=== PATIENT | female | born 1950 | race Caucasian/White ===

== ENCOUNTER 2020-11-30 13:27 | Outpatient (RCR) | payer MEDICARE, SELFPAY ==
[2016-10-14 19:12] VITALS: BMI 41.5
[2020-11-30] MEDS: COVID-19 VACC, MRNA(PFIZER)/PF 30 MCG/0.3 ML SYRINGE IM (15:04)
[2020-12-21] MEDS: COVID-19 VACC, MRNA(PFIZER)/PF 30 MCG/0.3 ML SYRINGE IM (14:41)
== END 2021-03-06 23:59 ==
LOC: IMMUN 13:27
PROVIDERS: PCP Family Medicine; Visit Provider Family Medicine
DX: Z23 Encounter for immunization (principal)
CPT/HCPCS: 0001A; 0002A; 91300

== ENCOUNTER → 2022-04-10 | Outpatient (CLI) | payer MEDICARE, SELFPAY ==
[2022-04-10 15:41] LABS: Erythrocyte Sedimentation Rate 52 mm/hr (0-30)
[2022-04-10 15:43] LABS: Absolute Lymphocyte Count 1.18 X10^3/uL (0.83-4.51); Absolute Neutrophil Count 6.6 X10^3/uL (2.0-7.7); Basophil# 0.01 X10^3/uL; Basophil% 0.1 % (0-1); Eosinophil# 0.15 X10^3/uL; Eosinophils% 1.7 % (0-5); Hematocrit 42.1 % (37-47); Hemoglobin 13.9 g/dL (12.0-15.0); Lymphocyte # 1.18 X10^3/ul (0.83-4.51); Lymphocyte % 13.6 % (19-41); Mean Corpuscular Hgb 33.6 pg (27.0-32.0); Mean Corpuscular Volume 101.7 fL (81-99); Mean Platelet Vol. 11.6 fl (6.2-12.0); NRBC Flagged by Analyzer 0 % (0-5); Neutrophil # 6.63 X10^3/uL (2.7-7.7); Neutrophil % 76.3 % (47-70); Platelet Count 192 K/mm3 (150-450); RBC Distribution Width CV 14.8 % (11.6-14.6); RBC Distribution Width SD 54.1 fl (35.1-43.9); Red Blood Count 4.14 M/mm3 (4.2-5.4); White Blood Count 8.7 K/mm3 (4.4-11.0)
[2022-04-10 15:58] LABS: ALB/GLOB Ratio 0.8 RATIO (0.9-2.4); AST(SGOT) 26 U/L (15-37); Alanine Aminotransfer ALT/SGPT 26 U/L (13-56); Albumin, Serum 3.4 g/dL (3.2-5.0); Alkaline Phosphatase 67 U/L (45-117); Anion Gap 6 (5-15); BUN 15 mg/dL (7-18); BUN/Creat Ratio 22.5 RATIO (10-20); Calcium,Total 9.6 mg/dL (8.5-10.1); Chloride 105 mmol/L (98-107); Creatinine, Serum 0.67 mg/dL (0.55-1.02); EST Glomerular Filtration Rate 93 mL/min (>60); Est Glom Filt Rate - Afr Amer 112 mL/min (>60); Ferritin 195 ng/mL (8-252); Glucose 117 mg/dL (74-106); LDH 208 U/L (84-246); Potassium 3.9 mmol/L (3.5-5.1); Protein, Total 7.4 g/dL (6.4-8.2); Sodium Level 140 mmol/L (136-145)
[2022-04-12 13:07] LABS: Anti-Centromere B Ab <0.2 AI (0.0-0.9); Anti-Chromatin <0.2 AI (0.0-0.9); Anti-Jo <0.2 AI (0.0-0.9); Anti-Scleroderma-70 AB <0.2 AI (0.0-0.9); RNP Ab 0.6 AI (0.0-0.9); SJOGREN'S Anti-SS-A test < 0.2 AI (0.0-0.9); SJOGREN'S Anti-SS-B test < 0.2 AI (0.0-0.9); Smith Ab <0.2 AI (0.0-0.9)
[2022-04-12 17:07] LABS: Endomysial Antibody IgA Negative (Negative)
[2022-04-12 20:21] LABS: Immunoglobulin A 414 mg/dL (87-352); t-Transglutaminase IgA <2 U/mL (0-3)
[2022-04-13 23:58] LABS: Anti-dsDNA Ab 2 IU/mL (0-9)
[2022-04-14 16:08] LABS: Albumin 3.6 g/dL (2.9-4.4); Alpha-1-Globulins 0.4 g/dL (0.0-0.4); Cytoplasmic Ab (C-ANCA) <1:20 titer (Neg:<1:20); Immunoglobulin A 406 mg/dL (87-352); Immunoglobulin E 3 IU/mL (6-495); Immunoglobulin G 1018 mg/dL (586-1602); Immunoglobulin M 53 mg/dL (26-217); PROEL- TOTAL PROTEIN 7.3 g/dL (6.0-8.5)
[2022-04-14 21:44] LABS: Perinuclear Ab (P-ANCA) <1:20 titer (Neg:<1:20)
== END | disposition home or self-care (01) ==
PROVIDERS: PCP Family Medicine; Visit Provider Internal Medicine Gastroenterology
DX: K57.92 Diverticulitis of intestine, part unspecified, without perforation or abscess without bleeding (principal); K21.9 Gastro-esophageal reflux disease without esophagitis; M54.16 Radiculopathy, lumbar region; Z98.890 Other specified postprocedural states
CPT/HCPCS: 36415; 80053; 82728; 82784; 82785; 83516; 83615; 84165; 85025; 85652; 86140; 86225; 86235; 86255; 86256; 86334

== ENCOUNTER → 2022-04-19 | Outpatient (CLI) | payer MEDICARE, SELFPAY ==
[2022-04-25 20:17] LABS: Calprotectin, Stool 161 ug/g (0-120)
== END | disposition home or self-care (01) ==
LOC: LABSPEC 07:50
PROVIDERS: PCP Family Medicine; Referring Provider Internal Medicine Gastroenterology; Visit Provider Internal Medicine Gastroenterology
DX: K57.92 Diverticulitis of intestine, part unspecified, without perforation or abscess without bleeding (principal); K21.9 Gastro-esophageal reflux disease without esophagitis; K58.9 Irritable bowel syndrome, unspecified
CPT/HCPCS: 36415; 83630; 83993

== ENCOUNTER 2022-05-01 08:19 | Day surgery (SDC) | payer MEDICARE, SELFPAY ==
[2022-05-01] VITALS (7 sets, daily range): BP systolic 103–152; BP diastolic 57–110; PULSE 78–91; RESP 16–24; TEMP 36.4–36.6; O2SAT 98–100; BMI 37.4
[2022-05-01] MEDS: Lactated Ringers 1,000 ML 15 ML IV (08:54)
--- NOTE | 2022-05-01 09:30 | IMM_PTH ---
PATIENT: ISIDRA WARREN LOC: EN U#:[id number] AGE/SX: 71/F ROOM: RE05/01/[address]: Dr. Zeyad De DO : 1950 BED: DIS: 05/01/2022 SPEC #: [id number] RECD: 05/01/22 12:50 STATUS: JARRETT REQ #: [id number] KESHAV: 05/01/22 09:[address]: Zeyad De DEPT: IMMUNOHISTOCHEMISTRY RECD BY: Nuria Banks ENTERED: 05/01/22 12:52 SP TYPE: IMMUNO OTHR DR: Dr. Bobby Hopkins DO Tissues: A - Stomach, NOS Procedures: H Pylori (initial) PHYSICIAN & INSTITUTION [place] [id number] SPECIMEN INFORMATION: Tissue Source: A - Gastric antrum biopsy Clinical Info: GERD, diverticulitis Specimen Number: [id number] CPT code: 55198 METHODOLOGY: Deparaffinized sections of prefer/formalin-fixed tissue or PAP/DQ stained slides are incubated with monoclonal/polyclonal antibodies/oligonucleotide probes. Localization is made via biotin free immunoperoxidase method. Appropriate controls are performed and reacted as expected. Results on target cell population are indicated in the following table: RESULTS: ANTIBODY / CLONE RESULT Block A H Pylori (polyclonal) negative These tests were developed and their performance characteristics determined by [facility]. They may not have been cleared or approved by the U.S. Food and Drug Administration. The FDA has determined that such clearance or approval is not necessary. The above immunohistochemical/dualISH markers are ordered and reviewed by the Pathologist. INTERPRETATION: A. Gastric antrum, biopsy: Negative for Helicobacter pylori organisms. AM:kusum 05/02/2022
--- NOTE | 2022-05-01 09:30 | COLBX_PTH ---
PATIENT: ISIDRA WARREN LOC: EN U#:[id number] AGE/SX: 71/F ROOM: RE05/01/[address]: Dr. Zeyad De DO : 1950 BED: DIS: 05/01/2022 SPEC #: [id number] RECD: 05/01/22 10:48 STATUS: JARRETT REEsthela #: [id number] KESHAV: 05/01/22 09:[address]: Zeyad De DEPT: SURGICAL PATHOLOGY RECD BY: Georgette Paul ENTERED: 05/01/22 11:48 SP TYPE: COLON BX OTHR DR: Dr. Bobby Hopkins DO Tissues: A - Gastric mucous membrane B - Duodenum, NOS C - Esophagus, NOS D - COLON BIOPSY Procedures: Special Stain Group II Surgery Specimen Level IV Alcian Blue/PAS (control) HEADER OPERATION: Colonoscopy with biopsies, EGD with biopsies ([facility] [place]) PRE-OP DIAGNOSIS: GERD, diverticulitis TISSUE SUBMITTED: A ? Gastric antrum biopsy, B ? Duodenum polyp, C ? Distal esophagus biopsy, D ? Random colon biopsy MICROSCOPIC DIAGNOSIS A. Gastric antrum, biopsy: Mild chronic gastritis. See comment. B. Duodenal polyp, biopsy: Polypoid fragments of benign duodenal mucosa. See comment. C. Distal esophagus, biopsy: Gastroesophageal junctional mucosa with mild chronic inflammation. No evidence of goblet cell metaplasia. See comment. D. Colon, random biopsy: Melanosis coli. AM:kusum 05/02/2022 COMMENT A. The results of immunohistochemistry for Helicobacter pylori will be reported separately ([id number]). B. Neither hyperplastic nor adenomatous change is identified. Clinical correlation is suggested. C. Alcian blue/PAS stain with matched control supports the above diagnosis. MICROSCOPIC DESCRIPTION Slides are reviewed. GROSS DESCRIPTION A - Received in fixative is one container labeled with the patient's name and designated gastric antrum biopsy. The specimen consists of two irregular fragments of light pelletier soft tissue that in aggregate measure 0.6 x 0.3 x 0.1 cm. The specimen is totally submitted in one cassette. B - Received in fixative is one container labeled with the patient's name and designated duodenum polyp. The specimen consists of two irregular fragments of light pelletier soft tissue that in aggregate measure 0.8 x 0.4 x 0.1 cm. The specimen is totally submitted in one cassette. C - Received in fixative is one container labeled with the patient's name and designated distal esophagus biopsy. The specimen consists of one irregular fragment of light pelletier soft tissue that measures 0.3 x 0.3 x 0.1 cm. The specimen is totally submitted in one cassette. D - Received in fixative is one container labeled with the patient's name and designated random colon biopsy. The specimen consists of multiple irregular fragments of light pelletier soft tissue that in aggregate measure 1.5 x 1 x 0.1 cm. The specimen is totally submitted in one cassette. / SJ:rg 05/01/2022 TC:3 CPT: 99540 x4, 40599
--- NOTE | 2022-05-01 09:53 | PCM.HP.BLA ---
History and Physical Date of Admission: 05/01/22 ISIDRA WARREN, is a 71 F who presents to the office today for Follow up visit. Samreen established with this clinic 07.06.21. She was previously seen by Dr. Sridhar Lo for rectal bleeding, there was also a polyp that she was unable to remove. Colonoscopy 06.19.[address] Sridhar Lo finding diverticulosis of sigmoid, descending and transverse colons; one 7mm polyp at appendiceal orifice. Colonoscopy 07.19.21 finding diverticulosis of sigmoid and descending colons; one 5mm hyperplastic polyp with benign lymphoid tissue removed from cecum. CT abd/pel 09.19.21 found There is borderline retroperitoneal lymphadenopathy with enlarged nodes no greater than 10mm in the short axis diameter. Scattered atherosclerotic calcification of abdominal aorta without demonstrated aneurysm. Small umbilical hernia containing fat with diffuse degenerative changes of lumbar spine. Lymphadenopathy is stable when compared with previous CT abd/pel. Biochemical workup .2021 CA 19-9, CEA CA125, LDH WNL CT abd/pel 03.08.22 without lymphadenopathy; fatty infiltration of liver; contracted thick-walled gallbladder without stones; minor diverticular changes of colon without acute diverticulitis. Plan last visit 10.11.21: Tubular adenoma ? repeat colonoscopy 2025. Retroperitoneal lymphadenopathy ? tumor markers WNL, no changes with repeat CT scan. Suspect they are reactive lymph nodes secondary to chronic inflammation. BRBPR secondary to hemorrhoids, no bleeding since start of normal BM. Reports she is doing well from a GI standpoint. Having difficulty with vertigo for which she is being seen for. ROS Const Constitutional: No anorexia, fatigue, fever(s), weight change or sleep problems Eyes Eyes: No change in vision ENT ENT: No abnormal hearing, difficulty swallowing, mouth lesions, tongue swelling or throat swelling Resp Respiratory: No cough or shortness of breath Cardio Cardiology: No chest pain at rest, chest pain with exertion, shortness of breath or dyspnea on exertion Gastro GI: No difficulty swallowing Genitourinary-Female: No difficulty urinating or burning urination Musc Musculoskeletal: No joint pain, joint swelling, muscle weakness or decreased muscle mass Skin Skin: No hair loss in leg, yellowing of the eye, itchy eyes, rash, skin ulcer or skin swelling Neuro Neurology: No abnormal hearing, abnormal movements, confusion, unsteady gait/balance or memory loss Psych Psychiatric: No anxiety, No confusion and No memory loss Endo Endocrine: No fatigue or weight change Aller/Imm Allergy/Immunologic: No itchy eyes, throat swelling or tongue swelling Ruslan/Lymp Hematologic/Lymphatic: No easy bleeding, easy bruising or enlarged lymph nodes Exam Const General: cooperative and comfortable Nutritional Appearance: average body habitus and well nourished [facility] Head: normal to inspection Ears: hearing grossly normal bilaterally Nose: external nose normal Face and sinus: normal facial exam Mouth: oral mucosae normal Throat: posterior oropharynx normal Eyes General: appearance normal, both eyes and all related structures Neck Neck: normal visual inspection Chest Chest palpation & inspection: normal inspection of the chest and normal palpation of entire chest wall Resp Effort & Inspection: normal respiratory effort Auscultation: Bilateral: Clear to Auscultation Cardio Palpation: normal PMI Rate: regular rate Rhythm: regular rhythm GI Inspection: normal to inspection Auscultation: normal bowel sounds Percussion: normal to percussion Palpation: no hepatosplenomegaly Skin General: no rashes or lesions noted Neuro General: patient alert Extrem General: normal to inspection Psych Affect: normal affect Quality Reporting Tobacco Screening ([facility] 138) Smoking Status: Current some day smoker Assessment and Plan Assessment and Plan (1) GERD (gastroesophageal reflux disease): ?Status:?Chronic ?Plan: Her gastroesophageal disease is not being controlled on Prevacid 30 mg once a day.? I will switch her to pantoprazole 40 mg twice a day.? Also and possibly abdominal pain is secondary to NSAID induced injury.? She does take Mobic on a daily basis and accompanied by methotrexate and Humira that is sure affecting her ability to heal from a GI infection standpoint. (2) Diverticulitis: ?Status:?Chronic ?Plan: She will need to have a colonoscopy to evaluate her colon in the setting of recurrent diverticulitis in someone who is not had a colonoscopy in approximately 10 years. ? ? ? Orders: Orders CRP Today K21.9 - Gastro-esophageal reflux disease without esophagitis, K57.92 - Diverticulitis of intestine, part unspecified, without perforation or abscess without bleeding ? Erythrocyte Sed Rate Today K21.9 - Gastro-esophageal reflux disease without esophagitis, K57.92 - Diverticulitis of intestine, part unspecified, without perforation or abscess without bleeding ? CBC W/Diff, Automated Today K21.9 - Gastro-esophageal reflux disease without esophagitis, K57.92 - Diverticulitis of intestine, part unspecified, without perforation or abscess without bleeding, M54.16 - Radiculopathy, lumbar region ? Comprehensive Metabolic Profil Today K21.9 - Gastro-esophageal reflux disease without esophagitis, K57.92 - Diverticulitis of intestine, part unspecified, without perforation or abscess without bleeding ? LDH Today K21.9 - Gastro-esophageal reflux disease without esophagitis, K57.92 - Diverticulitis of intestine, part unspecified, without perforation or abscess without bleeding ? Ferritin Today K21.9 - Gastro-esophageal reflux disease without esophagitis, K57.92 - Diverticulitis of intestine, part unspecified, without perforation or abscess without bleeding, Z98.890 - Other specified postprocedural states ? APRIL Comprehensive Panel Today K21.9 - Gastro-esophageal reflux disease without esophagitis, K57.92 - Diverticulitis of intestine, part unspecified, without perforation or abscess without bleeding ? Calprotectin, Stool Today K21.9 - Gastro-esophageal reflux disease without esophagitis, K57.92 - Diverticulitis of intestine, part unspecified, without perforation or abscess without bleeding ? Stool Lactoferrin/WBC Today K21.9 - Gastro-esophageal reflux disease without esophagitis, K57.92 - Diverticulitis of intestine, part unspecified, without perforation or abscess without bleeding, K58.9 - Irritable bowel syndrome without diarrhea ? ANCA Today K21.9 - Gastro-esophageal reflux disease without esophagitis, K57.92 - Diverticulitis of intestine, part unspecified, without perforation or abscess without bleeding ? Celiac Disease Profile Today K21.9 - Gastro-esophageal reflux disease without esophagitis, K57.92 - Diverticulitis of intestine, part unspecified, without perforation or abscess without bleeding ? Immunoglobulins G/A/M/E Today K21.9 - Gastro-esophageal reflux disease without esophagitis, K57.92 - Diverticulitis of intestine, part unspecified, without perforation or abscess without bleeding ? ROBIN + Protein Elect, Serum Today K21.9 - Gastro-esophageal reflux disease without esophagitis, K57.92 - Diverticulitis of intestine, part unspecified, without perforation or abscess without bleeding ? Medications: New amoxicillin-pot clavulanate 875-125 mg 1 TAB PO Q12H 14 tabs 0RF 7 days ? ? fluconazole 200 mg PO DAILY 10 tabs 0RF ? ? sucralfate 10 mL PO TID 1,000 mL 1RF ? ? pantoprazole 40 mg PO BID 120 tabs 0RF 2 months ? ? Discontinued lansoprazole ?? Discontinued Reason:? Duplicate Order 30 mg? PO DAILY ? ? I have re-examined the patient. There are no clinical changes since date of exam.
--- NOTE | 2022-05-01 10:41 | OP.CCLET_ITS ---
07/04/2022 Bobby Hopkins Re : Upper GI endoscopy procedure for Lucrecia Hamiltonr Sandeep This procedure was performed on Sunday, May 01, 2022. My impressions and recommendations are as follows: Impressions : - Z-line irregular, 38 cm from the incisors. Biopsied. - Small hiatal hernia. - Erythematous mucosa in the gastric body. Biopsied. - A single duodenal polyp. Biopsied. Recommendations : - Discharge patient to home. - Resume previous diet. - Continue present medications. - Await pathology results. - Repeat upper endoscopy in 1 year for surveillance. My findings are described in the full procedure note, which is enclosed. If I can be of further assistance, please feel free to contact me at . Sincerely, Zeyad De, 05/01/2022 10:40:18 AM This report has been signed electronically.
--- NOTE | 2022-05-01 10:41 | OP.EGD_ITS ---
Patient Name: Lucrecia Roberto Procedure Date: 05/01/2022 9:45 AM Date of : 1950 Age: 71 Procedure: Upper GI endoscopy Indications: Epigastric abdominal pain, Dyspepsia Providers: Zeyad De DO Medicines: Monitored Anesthesia Care Patient Profile: This is a 71 year old female. Refer to note in patient chart for documentation of history and physical. Patient has symptoms of chronic abdominal cramping, chronic abdominal distention and chronic epigastric abdominal pain. Complications: No immediate complications. Procedure: Pre-Anesthesia Assessment: - Prior to the procedure, a History and Physical was performed, and patient medications and allergies were reviewed. The patient is competent. The risks and benefits of the procedure and the sedation options and risks were discussed with the patient. All questions were answered and informed consent was obtained. Patient identification and proposed procedure were verified by the physician in the pre-procedure area. Mental Status Examination: alert and oriented. Airway Examination: normal oropharyngeal airway and neck mobility. Respiratory Examination: clear to auscultation. CV Examination: normal. Prophylactic Antibiotics: The patient does not require prophylactic antibiotics. Prior Anticoagulants: The patient has taken no previous anticoagulant or antiplatelet agents. After reviewing the risks and benefits, the patient was deemed in satisfactory condition to undergo the procedure. The anesthesia plan was to use moderate sedation / analgesia (conscious sedation). Immediately prior to administration of medications, the patient was re-assessed for adequacy to receive sedatives. The heart rate, respiratory rate, oxygen saturations, blood pressure, adequacy of pulmonary ventilation, and response to care were monitored throughout the procedure. The physical status of the patient was re-assessed after the procedure. After obtaining informed consent, the endoscope was passed under direct vision. Throughout the procedure, the patient's blood pressure, pulse, and oxygen saturations were monitored continuously. The pediatric colonoscope was introduced through the mouth, and advanced to the second part of duodenum. The upper GI endoscopy was accomplished without difficulty. The patient tolerated the procedure well. Scope In: 10:01:06 AM Scope Out: 10:09:14 AM Total Procedure Duration Time 0 hours 8 minutes 8 seconds Findings: The Z-line was irregular and was found 38 cm from the incisors. Biopsies were taken with a cold forceps for histology. Verification of patient identification for the specimen was done. Estimated blood loss was minimal. A small hiatal hernia was present. Patchy mildly erythematous mucosa without bleeding was found in the gastric body. Biopsies were taken with a cold forceps for histology. Verification of patient identification for the specimen was done. Estimated blood loss was minimal. A single 5 mm sessile polyp was found in the second portion of the duodenum. Biopsies were taken with a cold forceps for histology. Verification of patient identification for the specimen was done. Estimated blood loss was minimal. Impression: - Z-line irregular, 38 cm from the incisors. Biopsied. - Small hiatal hernia. - Erythematous mucosa in the gastric body. Biopsied. - A single duodenal polyp. Biopsied. Recommendation: - Discharge patient to home. - Resume previous diet. - Continue present medications. - Await pathology results. - Repeat upper endoscopy in 1 year for surveillance. Procedure Code(s): --- Professional --- 55196, Esophagogastroduodenoscopy, flexible, transoral; with biopsy, single or multiple CPT copyright 2017 [employer]. All rights reserved. The codes documented in this report are preliminary and upon port surveyor review may be revised to meet current compliance requirements. Zeyad De DO 05/01/2022 10:40:18 AM This report has been signed electronically. Number of Addenda: 1 Note Initiated On: 05/01/2022 9:45 AM Addendum Number: 1 Addendum Date: 07/04/2022 6:33:29 AM MAC was used as sedation for this procedure. Zeyad De DO 07/04/2022 6:33:36 AM This report has been signed electronically.
--- NOTE | 2022-05-01 10:45 | OP.COLON_ITS ---
Patient Name: Lucrecia Roberto Procedure Date: 05/01/2022 10:09 AM Date of : 1950 Age: 71 Procedure: Colonoscopy Indications: Chronic diarrhea, Clinically significant diarrhea of unexplained origin Providers: Zeyad De DO Medicines: Monitored Anesthesia Care Patient Profile: This is a 71 year old female. Refer to note in patient chart for documentation of history and physical. Patient has symptoms of chronic abdominal cramping, chronic abdominal distention and chronic epigastric abdominal pain. Last Colonoscopy: within the past 3 years. Complications: No immediate complications. Procedure: Pre-Anesthesia Assessment: - Prior to the procedure, a History and Physical was performed, and patient medications and allergies were reviewed. The patient is competent. The risks and benefits of the procedure and the sedation options and risks were discussed with the patient. All questions were answered and informed consent was obtained. Patient identification and proposed procedure were verified by the physician in the pre-procedure area. Mental Status Examination: alert and oriented. Airway Examination: normal oropharyngeal airway and neck mobility. Respiratory Examination: clear to auscultation. CV Examination: normal. Prophylactic Antibiotics: The patient does not require prophylactic antibiotics. Prior Anticoagulants: The patient has taken no previous anticoagulant or antiplatelet agents. After reviewing the risks and benefits, the patient was deemed in satisfactory condition to undergo the procedure. The anesthesia plan was to use moderate sedation / analgesia (conscious sedation). Immediately prior to administration of medications, the patient was re-assessed for adequacy to receive sedatives. The heart rate, respiratory rate, oxygen saturations, blood pressure, adequacy of pulmonary ventilation, and response to care were monitored throughout the procedure. The physical status of the patient was re-assessed after the procedure. After I obtained informed consent, the scope was passed under direct vision. Throughout the procedure, the patient's blood pressure, pulse, and oxygen saturations were monitored continuously. The pediatric colonoscope was introduced through the anus and advanced to the cecum, identified by appendiceal orifice and ileocecal valve. The colonoscopy was performed without difficulty. The patient tolerated the procedure well. The quality of the bowel preparation was fair. Scope In: 10:13:21 AM Scope Withdrawal Time 0 hours 8 minutes 14 seconds Scope Out: 10:33:44 AM Total Procedure Duration Time 0 hours 20 minutes 23 seconds Findings: Hemorrhoids were found on perianal exam. Multiple small and large-mouthed diverticula were found in the recto-sigmoid colon, sigmoid colon and descending colon. There was narrowing of the colon in association with the diverticular opening. There was evidence of diverticular spasm. Erythema was seen in association with the diverticular opening. There was no evidence of diverticular bleeding. A diffuse area of moderate melanosis was found in the entire colon. Biopsies were taken with a cold forceps for histology. Verification of patient identification for the specimen was done. Estimated blood loss was minimal. Stool was found in the rectum, in the recto-sigmoid colon, in the sigmoid colon, in the ascending colon and in the cecum. Non-bleeding external and internal hemorrhoids were found during retroflexion and during perianal exam. The hemorrhoids were Grade III (internal hemorrhoids that prolapse but require manual reduction). Impression: - Preparation of the colon was fair. - Hemorrhoids found on perianal exam. - Moderate diverticulosis in the recto-sigmoid colon, in the sigmoid colon and in the descending colon. There was narrowing of the colon in association with the diverticular opening. There was evidence of diverticular spasm. Erythema was seen in association with the diverticular opening. There was no evidence of diverticular bleeding. - Melanosis in the colon. Biopsied. - Stool in the rectum, in the recto-sigmoid colon, in the sigmoid colon, in the ascending colon and in the cecum. Recommendation: - Discharge patient to home. - Resume previous diet. - Continue present medications. - Await pathology results. - Repeat colonoscopy in 5 years for surveillance. Procedure Code(s): --- Professional --- 69611, Colonoscopy, flexible; with biopsy, single or multiple CPT copyright 2017 [employer]. All rights reserved. The codes documented in this report are preliminary and upon tool keeper review may be revised to meet current compliance requirements. Zeyad De DO 05/01/2022 10:44:56 AM This report has been signed electronically. Number of Addenda: 1 Note Initiated On: 05/01/2022 10:09 AM Addendum Number: 1 Addendum Date: 07/04/2022 6:33:44 AM MAC was used as sedation for this procedure. Zeyad De DO 07/04/2022 6:33:48 AM This report has been signed electronically.
--- NOTE | 2022-05-01 10:45 | OP.CCLET_ITS ---
07/04/2022 Bobby Hopkins Re : Colonoscopy procedure for Lucrecia Hamiltonr Sandeep This procedure was performed on Sunday, May 01, 2022. My impressions and recommendations are as follows: Impressions : - Preparation of the colon was fair. - Hemorrhoids found on perianal exam. - Moderate diverticulosis in the recto-sigmoid colon, in the sigmoid colon and in the descending colon. There was narrowing of the colon in association with the diverticular opening. There was evidence of diverticular spasm. Erythema was seen in association with the diverticular opening. There was no evidence of diverticular bleeding. - Melanosis in the colon. Biopsied. - Stool in the rectum, in the recto-sigmoid colon, in the sigmoid colon, in the ascending colon and in the cecum. Recommendations : - Discharge patient to home. - Resume previous diet. - Continue present medications. - Await pathology results. - Repeat colonoscopy in 5 years for surveillance. My findings are described in the full procedure note, which is enclosed. If I can be of further assistance, please feel free to contact me at . Sincerely, Zeyad De DO 05/01/2022 10:44:56 AM This report has been signed electronically.
[2022-05-01] MEDS: Albuterol 2.5 MG/3 ML VIAL.NEB. INHALATION (10:55)
== END 2022-05-01 11:51 | disposition home or self-care (01) ==
LOC: EN 08:20 → AC 08:24
PROVIDERS: PCP Family Medicine; Referring Provider Family Medicine; Visit Provider Internal Medicine Gastroenterology
PROC: 0DJD8ZZ Inspection of Lower Intestinal Tract, Via Natural or Artificial Opening Endoscopic (ICD-10-PCS; CPT 45378; principal; 2022-05-01 09:25)
DX: K57.30 Diverticulosis of large intestine without perforation or abscess without bleeding (principal); K31.7 Polyp of stomach and duodenum; K21.9 Gastro-esophageal reflux disease without esophagitis; K63.89 Other specified diseases of intestine; K44.9 Diaphragmatic hernia without obstruction or gangrene; K64.2 Third degree hemorrhoids; K64.8 Other hemorrhoids; F17.200 Nicotine dependence, unspecified, uncomplicated; R19.7 Diarrhea, unspecified
CPT/HCPCS: 45380; 43239; 87493; 87506; 88305; 88313; 88342; 94640; J7120; J2405

== ENCOUNTER → 2022-09-11 | Outpatient (CLI) | payer MEDICARE, SELFPAY ==
[2022-09-11 17:17] LABS: Erythrocyte Sedimentation Rate 25 mm/hr (0-30)
[2022-09-11 17:20] LABS: Absolute Lymphocyte Count 1.22 X10^3/uL (0.83-4.51); Absolute Neutrophil Count 4.6 X10^3/uL (2.0-7.7); Basophil# 0.02 X10^3/uL; Basophil% 0.3 % (0-1); Eosinophil# 0.08 X10^3/uL; Eosinophils% 1.3 % (0-5); Hematocrit 40.6 % (37-47); Lymphocyte # 1.22 X10^3/ul (0.83-4.51); Lymphocyte % 19.9 % (19-41); Mean Corpuscular Hgb 33.8 pg (27.0-32.0); Mean Corpuscular Volume 105.5 fL (81-99); Mean Platelet Vol. 10.5 fl (6.2-12.0); Monocyte# 0.25 X10^3/uL; Monocyte% 4.1 % (0-10); NRBC Flagged by Analyzer 0 % (0-5); Neutrophil # 4.55 X10^3/uL (2.7-7.7); Neutrophil % 74.1 % (47-70); Platelet Count 250 K/mm3 (150-450); RBC Distribution Width CV 15.6 % (11.6-14.6); RBC Distribution Width SD 60.3 fl (35.1-43.9); Red Blood Count 3.85 M/mm3 (4.2-5.4); White Blood Count 6.1 K/mm3 (4.4-11.0)
[2022-09-11 18:00] LABS: ALB/GLOB Ratio 0.9 RATIO (0.9-2.4); AST(SGOT) 27 U/L (15-37); Alanine Aminotransfer ALT/SGPT 34 U/L (13-56); Albumin, Serum 3.3 g/dL (3.2-5.0); Alkaline Phosphatase 68 U/L (45-117); Anion Gap 3 (5-15); BUN 21 mg/dL (7-18); BUN/Creat Ratio 24.4 RATIO (10-20); CRP < 2.90 mg/L (0.0-3.0); Calcium,Total 9.1 mg/dL (8.5-10.1); Chloride 107 mmol/L (98-107); Creatinine, Serum 0.86 mg/dL (0.55-1.02); EST Glomerular Filtration Rate 69 mL/min (>60); Est Glom Filt Rate - Afr Amer 84 mL/min (>60); Globulin 3.8 g/dL (2.2-4.2); Glucose 195 mg/dL (74-106); Potassium 4.1 mmol/L (3.5-5.1); Protein, Total 7.1 g/dL (6.4-8.2); Sodium Level 139 mmol/L (136-145)
== END | disposition home or self-care (01) ==
LOC: LAB 16:48
PROVIDERS: PCP Family Medicine; Visit Provider Registered Nurse
DX: L40.50 Arthropathic psoriasis, unspecified (principal)
CPT/HCPCS: 36415; 80053; 85025; 85652; 86140

== ENCOUNTER → 2023-05-27 | Outpatient (CLI) | payer MEDICARE, SELFPAY ==
[2023-05-27 15:36] LABS: BNP,B-Type NATRIURETIC PEPTIDE 50.5 pg/mL (0-100)
[2023-05-27 15:50] LABS: ALB/GLOB Ratio 0.8 RATIO (0.9-2.4); AST(SGOT) 32 U/L (15-37); Alanine Aminotransfer ALT/SGPT 35 U/L (13-56); Albumin, Serum 3.3 g/dL (3.2-5.0); Alkaline Phosphatase 77 U/L (45-117); Anion Gap 9 (5-15); BUN 20 mg/dL (7-18); BUN/Creat Ratio 24.5 RATIO (10-20); Calcium,Total 9.9 mg/dL (8.5-10.1); Chloride 101 mmol/L (98-107); Creatinine, Serum 0.82 mg/dL (0.55-1.02); EST Glomerular Filtration Rate 73 mL/min (>60); Est Glom Filt Rate - Afr Amer 89 mL/min (>60); Globulin 3.9 g/dL (2.2-4.2); Glucose 129 mg/dL (74-106); Protein, Total 7.2 g/dL (6.4-8.2); Sodium Level 137 mmol/L (136-145)
== END | disposition home or self-care (01) ==
LOC: BIMLAB 13:53
PROVIDERS: PCP Family Medicine; Referring Provider Family Medicine; Visit Provider Family Medicine
DX: R06.89 Other abnormalities of breathing (principal); R06.00 Dyspnea, unspecified; I10 Essential (primary) hypertension
CPT/HCPCS: 36415; 80053; 83880

== ENCOUNTER → 2023-05-29 | Outpatient (CLI) | payer MEDICARE, SELFPAY ==
--- NOTE | 2023-05-29 15:31 | RAD_ITS ---
EXAM: XR CHEST, 2 VIEWS CLINICAL INDICATION: PT STATED DYSPNEA, COUGH X 3 DAYS TECHNIQUE: Frontal and lateral views of the chest. COMPARISON: 08/09/2014 FINDINGS: LUNGS AND PLEURAL SPACES: There are interstitial opacities which may represent scar or edema. No pneumothorax. No effusion. HEART: Unremarkable. Cardiac silhouette not enlarged. MEDIASTINUM: Central airways and mediastinal contour are unremarkable. BONES/JOINTS: Unremarkable. SOFT TISSUES: Unremarkable. RAD/Chest PA and Lateral IMPRESSION: Interstitial opacities which may represent scar or edema. There is no focal consolidation. Electronically Signed: Pancho Justice MD at 20:31 EDT ,
== END | disposition home or self-care (01) ==
LOC: RAD 15:30
PROVIDERS: PCP Family Medicine; Referring Provider Family Medicine; Visit Provider Family Medicine
DX: J44.9 Chronic obstructive pulmonary disease, unspecified (principal); R06.00 Dyspnea, unspecified
CPT/HCPCS: 71046

== ENCOUNTER 2023-06-01 17:41 | Inpatient (IN) | payer MEDICARE, MEDICAID, SELFPAY ==
[2023-06-01] VITALS (10 sets, daily range): BP systolic 100–151; BP diastolic 74–92; PULSE 85–111; RESP 20–28; TEMP 37.4; O2SAT 66–95; BMI 39.3
--- NOTE | 2023-06-01 17:50 | EKG12_ITS ---
Test Reason : SOB Blood Pressure : / mmHG Vent. Rate : 103 BPM Atrial Rate : 103 BPM P-R Int : 152 ms QRS Dur : 082 ms QT Int : 342 ms P-R-T Axes : 045 077 038 degrees QTc Int : 448 ms Sinus tachycardia with frequent Premature ventricular complexes Possible Left atrial enlargement Borderline ECG Confirmed by DOMO UMAÑA, MELVI ([id number]), features editor BRIDGETT CRESPO ([id number]) on 06/04/2023 10:49:00 AM Referred By: PRETTY Confirmed By:MELVI OLIVEROS MD
--- NOTE | 2023-06-01 17:50 | NURSING ---
NO OLD EKGS
[2023-06-01 18:02] LABS: Absolute Neutrophil Count 5.8 X10^3/uL (2.0-7.7); Basophil# 0.04 X10^3/uL; Basophil% 0.6 % (0-1); Eosinophil# 0.17 X10^3/uL; Eosinophils% 2.4 % (0-5); Hematocrit 43.9 % (37-47); Hemoglobin 14.6 g/dL (12.0-15.0); Lymphocyte % 8.3 % (19-41); Mean Corp Hgb Conc 33.3 g/dL (32-36); Mean Corpuscular Hgb 33.6 pg (27.0-32.0); Mean Corpuscular Volume 101.2 fL (81-99); Mean Platelet Vol. 10.1 fl (6.2-12.0); Monocyte% 8.3 % (0-10); NRBC Flagged by Analyzer 0 % (0-5); Neutrophil # 5.77 X10^3/uL (2.7-7.7); Neutrophil % 79.8 % (47-70); POSITIVE DIFFERENTIAL YES; Platelet Count 253 K/mm3 (150-450); RBC Distribution Width SD 54.2 fl (35.1-43.9); Red Blood Count 4.34 M/mm3 (4.2-5.4); White Blood Count 7.2 K/mm3 (4.4-11.0)
--- NOTE | 2023-06-01 18:06 | EDS_ITS ---
HPI History of Present Illness Chief Complaint: Shortness of Breath Informant: patient, family and EMS Narrative Narrative: 72-year-old female presenting to the emergency department with chief complaint of dyspnea. Patient states that 1 week ago on Friday she developed some cough and dyspnea. She notes the cough is not really productive. She states that is progressively gotten worse. She has a history of psoriatic arthritis and does take Humira. She has not taken it this week. She does not wear home oxygen. EMS notes that she was hypoxic at 84% on room air. She denies any chest pain or leg swelling. No recent surgeries. She denies any known lung conditions but believes at some point somebody told her she may have COPD. She states that her temperatures been around 100 which for her is a fever as she generally feels very poorly with that no vomiting or diarrhea. No rashes. [facility] Medical History Abrasion Ambulates with cane Arthritis Back pain Back problem C. difficile colitis Elevated glucose Gastric reflux GERD (gastroesophageal reflux disease) Hearing difficulty High blood pressure High cholesterol History of diverticulitis History of hiatal hernia History of steroid therapy History of ulceration HTN (hypertension) IBS (irritable bowel syndrome) Low back pain Neuropathy Obesity Osteoarthritis Osteopenia Psoriatic arthritis Smoker Uses wheelchair Walker as ambulation aid Wears glasses Home Medications omega-3 fatty acids-fish oil 340 mg-1,000 mg capsule (Fish Oil) 1,000 mg PO DAILY 11/10/15 [History Last Taken 11/17/15 09:55] tizanidine 4 mg tablet 4 mg PO QHS 11/10/15 [History Last Taken 11/16/15 21:30] calcium carbonate 600 mg calcium (1,500 mg) tablet 2,000 mg PO DAILY 11/17/15 [History Last Taken 11/17/15 12:30] cholecalciferol (vitamin D3) 25 mcg (1,000 unit) tablet (Vitamin D3) 1,000 unit PO BID 11/17/15 [History Last Taken 11/16/15 21:25] hydrochlorothiazide 25 mg tablet 25 mg PO DAILY #30 TABLETS 11/20/15 [Rx Last Taken Unknown] meloxicam 7.5 mg tablet 15 mg PO DAILY 10/14/16 [History Last Taken Unknown] folic acid 1 mg tablet 1 mg PO DAILY 04/05/22 [History Last Taken Unknown] losartan 50 mg tablet 50 mg PO DAILY 04/05/22 [History Last Taken 05/01/22] melatonin 10 mg capsule 10 mg PO HS PRN Sleep 04/05/22 [History Last Taken Unknown] prednisone 5 mg tablet 1 tab PO DAILY 04/30/22 [History Last Taken Unknown] buprenorphine 15 mcg/hour weekly transdermal patch 1 patch transdermal Q7D 05/27/23 [History Last Taken Unknown] fluconazole 150 mg tablet 150 mg PO Q3D PRN 05/27/23 [History Last Taken Unknown] hydrocodone 10 mg-acetaminophen 325 mg tablet 0.25 tab PO DAILY PRN pain 05/27/23 [History Last Taken Unknown] hydrocodone 10 mg-acetaminophen 325 mg tablet 0.5 tab PO BID Pain 05/27/23 [History Last Taken Unknown] lansoprazole 30 mg capsule,delayed release 30 mg PO DAILY 05/27/23 [History Last Taken Unknown] methotrexate sodium 2.5 mg tablet 20 mg PO QWEEK 05/27/23 [History Last Taken Unknown] pantoprazole 40 mg tablet,delayed release 40 mg PO DAILY 05/27/23 [History Last Taken Unknown] tenapanor 50 mg tablet (Ibsrela) 50 mg PO DAILY 05/27/23 [History Last Taken Unknown] Allergy/AdvReac Type Severity Reaction Status Date / Time duloxetine [From Cymbalta] Allergy Intermediate Swelling Verified 06/01/23 17:42 erythromycin base Allergy Nausea/Vom/ Verified 06/01/23 17:42 Diarrhea pregabalin [From Lyrica] Allergy Swelling Verified 06/01/23 17:42 Family History Mother Diabetes Arthritis Heart disease CVA (cerebral vascular accident) Hypertension History of blood transfusion Father Pancreatic cancer Alcoholism Peptic ulcer disease Son Seizures Suicide attempt Surgical History H/O laminectomy History of appendectomy History of appendectomy History of breast biopsy History of colonoscopy (05/01/02) History of foot surgery History of spinal surgery Social History Smoking Status: Current some day smoker tobacco type: cigarettes alcohol intake: never substance use type: does not use what type of physical activity do you participate in: none seatbelt use: always do you feel safe at home: Yes ROS ROS ED Constitutional Constitutional ED: Reports chills and fever(s); Denies weight loss Eyes Eyes: Denies change in vision or diplopia ENT ENT ED: Reports rhinorrhea; Denies ear pain or sore throat Cardiovascular Cardiovascular: Denies chest pain, orthopnea, palpitations or racing heartbeat Respiratory/Chest Respiratory/Chest: Reports cough, dyspnea and dyspnea on exertion; Denies orthopnea Gastrointestinal Gastrointestinal: Denies abdominal pain, diarrhea, nausea or vomiting Genitourinary Genitourinary ED: Denies dysuria, hematuria or urinary frequency Musculoskeletal Musculoskeletal: Reports myalgias; Denies arthralgias, back pain or neck pain Integumentary Denies abscess or rash Neurologic Neurologic: Denies headache(s), paresthesias or weakness Psychiatric Psychiatric: Denies anxiety, depression, suicidal ideation or suicidal thoughts Endocrine Endocrinology: Denies polydipsia, polyphagia or polyuria Allergic/Immunologic Allergic/Immunologic ED: Denies mouth swelling, tongue swelling or urticaria EXAM Physical Exam Const Vital Signs: 06/01/23 17:42 06/01/23 17:47 06/01/23 17:48 Temperature 99.3 F H Temperature Source Temporal Pulse Rate 111 H Respiratory Rate 23 H Respiratory Effort Short of Breath Labored Blood Pressure 151/92 H Blood Pressure Mean 111 Pulse Ox 90 94 Oxygen Delivery Method Nasal Cannula Nasal Cannula Nasal Cannula Oxygen Flow Rate (L/min) 2 3 3 06/01/23 17:47 06/01/23 18:12 06/01/23 18:12 Temperature 99.3 F H Temperature Source Temporal Pulse Rate 105 H 104 H Respiratory Rate 21 H 23 H Respiratory Effort Blood Pressure 151/92 H Blood Pressure Mean 111 Pulse Ox 94 95 Oxygen Delivery Method Nasal Cannula Nasal Cannula Oxygen Flow Rate (L/min) 3 3 06/01/23 19:02 06/01/23 20:05 06/01/23 20:04 Temperature Temperature Source Pulse Rate 98 107 H Respiratory Rate 20 H 28 H Respiratory Effort Blood Pressure 148/74 H 100/76 Blood Pressure Mean 98 84 Pulse Ox 94 91 66 Oxygen Delivery Method Nasal Cannula Nasal Cannula Room Air Oxygen Flow Rate (L/min) 2 2 06/01/23 21:36 06/01/23 22:35 Temperature Temperature Source Pulse Rate 88 85 Respiratory Rate 26 H 22 H Respiratory Effort Blood Pressure 129/76 H 142/82 H Blood Pressure Mean 93 102 Pulse Ox 92 93 Oxygen Delivery Method Nasal Cannula Nasal Cannula Oxygen Flow Rate (L/min) 2 2 Positive well nourished, well developed and obese General Appearance ED: well developed Nutritional Appearance: obese HEENT Reports normocephalic, head/scalp atraumatic and moist mucous membranes Eyes PERRL and EOMs intact bilaterally Neck no lymphadenopathy, supple and no JVD Resp clear to auscultation bilaterally Resp Narrative: Patient is tachypneic Cardio regular rate, regular rhythm and no murmurs Rate: tachycardic GI normal to inspection, nondistended, normoactive bowel sounds and non-tender Palpation: soft Back/Spine no CVA tenderness and normal ROM Extremity normal to inspection General Extremety ED: Negative for edema General Extremity: Negative for edema Neuro oriented x3 and CN's II-XII intact bilaterally Sensorium / Orientation: alert Motor Exam: strength 5/5 throughout Psych mental status grossly normal Mood & Affect: Negative for depressed or tearful Skin no rashes or lesions noted and no wounds MDM MDM MDM Narrative Medical decision making narrative: White count is 7.2. Lactic acid is normal 1.8. Troponin elevated 281. Her EKG is tachycardia but I do not see any acute injury pattern. Most likely elevated due to the degree of hypoxia. The patient attempted to ambulate from the room to the bathroom on room air and ended up dropping into the 60s. Just getting from the bed to the bedside commode she is in the low 80s while on 2 L nasal cannula. I interpretation of the chest x-ray is interstitial changes. CTA of the chest was obtained. This is negative for infiltrate effusion or embolism. The patient's COVID and influenza rapid test were negative. She received a DuoNeb with no significant change in symptomology. Lab Data Attestation: I reviewed the patient's lab results. Labs: Laboratory Results - last 24 hr 06/01/23 06/01/23 17:50 17:55 WBC 7.2 RBC 4.34 Hgb 14.6 Hct 43.9 MCV 101.2 H MCH 33.6 H MCHC 33.3 RDW Std Deviation 54.2 H RDW Coeff of Sonya 15.0 H Plt Count 253 MPV 10.1 Immature Gran % (Auto) 0.600 Neut % (Auto) 79.8 H Lymph % (Auto) 8.3 L [place] % (Auto) 8.3 Eos % (Auto) 2.4 Baso % (Auto) 0.6 Absolute Neuts (auto) 5.8 Absolute Lymphs (auto) 0.60 L Nucleated RBC % 0 Differential Comment SCANNED PT 14.2 INR 1.1 APTT 28.1 Sodium 139 Potassium 3.4 L Chloride 103 Carbon Dioxide 26.0 Anion Gap 10 BUN 17 Creatinine 0.88 Estim Creat Clear Calc 50.63 Est GFR (MDRD) Af Amer 81 Est GFR (MDRD) Non-Af 67 BUN/Creatinine Ratio 19.3 Glucose 177 H Lactic Acid 1.8 Calcium 9.1 Total Bilirubin 0.80 Direct Bilirubin 0.22 AST 32 ALT 20 Alkaline Phosphatase 77 Troponin I High Sens 282 H* Total Protein 7.6 Albumin 3.2 Globulin 4.4 H Radiography Diagnostic Testing: Clinical Impression(s) from Imaging Studies Chest X-Ray 06/01/23 18:28 IMPRESSION: Chronic interstitial lung disease. Electronically Signed: Joanne Wood MD at 18:52 EDT , Chest CTA 06/01/23 19:08 IMPRESSION: Chronic interstitial lung disease. No demonstrated pulmonary embolism or arterial dissection. Cholelithiasis. Electronically Signed: Joanne Wood MD at 21:49 EDT , EKG Initial EKG: Attestation: I personally reviewed and interpreted this EKG as follows: Comments: Sinus tachycardia with a ventricular rate of 103 bpm. PVCs noted. No concerning features of ACS seen. Prior EKG tracings: not available for review Differential Diagnosis Chest pain/SOB: pulmonary embolism, ACS, pneumothorax, pneumonia, aortic dissection, CHF and COPD Management Discussion w/another healthcare provider: Hospitalist Discharge Plan Triage Chief Complaint: Shortness of Breath ED Provider: Harry Woods Dx/Rx/DC Orders Clinical Impression: Acute dyspnea, Acute hypoxemic respiratory failure Prescriptions: No Action losartan 50 mg tablet 50 mg PO DAILY melatonin 10 mg capsule 10 mg PO HS PRN (Reason: Sleep) folic acid 1 mg tablet 1 mg PO DAILY methotrexate sodium 2.5 mg tablet 20 mg PO QWEEK Rx Instructions: SUNDAYS pantoprazole 40 mg tablet,delayed release (DR/EC) 40 mg PO DAILY Rx Instructions: in AM lansoprazole 30 mg capsule,delayed release(DR/EC) 30 mg PO DAILY Rx Instructions: in PM buprenorphine 15 mcg/hour patch weekly 1 patch transdermal Q7D Ibsrela 50 mg tablet 50 mg PO DAILY Rx Instructions: must administer immediately before first meal of day/breakfast fluconazole 150 mg tablet 150 mg PO Q3D PRN hydrocodone-acetaminophen 10-325 mg tablet 0.25 tab PO DAILY PRN (Reason: pain) tizanidine 4 MG tablet 4 mg PO QHS 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 Fish Oil 1 EACH capsule 1,000 mg PO DAILY Patient Comments: SUPPLEMENT calcium carbonate 600 MG tablet 2,000 mg PO DAILY Patient Comments: CALCIUM SUPPLEMENT cholecalciferol (vitamin D3) [Vitamin D3] 1,000 UNIT tablet 1,000 unit PO BID Patient Comments: VIT D SUPPLEMENT hydrochlorothiazide 25 MG tablet 25 mg PO DAILY Qty: 30 0RF meloxicam 7.5 MG tablet 15 mg PO DAILY prednisone 5 mg tablet 1 tab PO DAILY hydrocodone-acetaminophen 10-325 mg tablet 0.5 tab PO BID Primary Care Provider: Pedro Williamson Referrals: Pedro Williamson, [Primary Care Provider] - Disposition Disposition: Acute Care Hospital
[2023-06-01] MEDS: Ipratropium/Albuterol Sulfate 3 ML AMPUL.NEB INHALATION (18:11)
[2023-06-01 18:15] LABS: Differential Indicated SCAN CRITERIA MET
[2023-06-01 18:23] LABS: International Normalized Ratio 1.1; Prothrombin Time (Protime)PT. 14.2 SECONDS (11.7-14.9)
[2023-06-01 18:24] LABS: Partial Thromboplast Time 28.1 Seconds (24.1-36.2)
--- NOTE | 2023-06-01 18:28 | RAD_ITS ---
INDICATION: dyspnea EXAMINATION/TECHNIQUE: X-RAY - XR Chest 1 View COMPARISON: CR ChestAug 31 2022 FINDINGS: LINES/DEVICES: None. LUNGS: Increased subpleural interstitial markings consistent with chronic interstitial lung disease. MEDIASTINUM AND CARDIOVASCULAR STRUCTURES: Cardiac silhouette not enlarged. Central airways and mediastinal contour are unremarkable. BONES AND SOFT TISSUES: Unremarkable. RAD/Chest 1 View (Portable) IMPRESSION: Chronic interstitial lung disease. Electronically Signed: Joanne Wood MD at 18:52 EDT ,
[2023-06-01 18:37] LABS: AST(SGOT) 32 U/L (15-37); Alanine Aminotransfer ALT/SGPT 20 U/L (13-56); Albumin, Serum 3.2 g/dL (3.2-5.0); Alkaline Phosphatase 77 U/L (45-117); Bilirubin, Direct 0.22 mg/dL (0.00-0.30); Differential Comment SCANNED; Globulin 4.4 g/dL (2.2-4.2); Protein, Total 7.6 g/dL (6.4-8.2)
[2023-06-01 18:41] LABS: Lactic Acid 1.8 mmol/L (0.4-1.9)
--- NOTE | 2023-06-01 19:08 | CT_ITS ---
STUDY: CTA CHEST REASON FOR EXAM: Female, 72 years old. pulmonary embolism RADIATION DOSAGE (If Supplied By Facility): CTDIvol = ( 15.04 ) mGy, DLP = ( 531.44 ) mGycm TECHNIQUE: The examination was performed with the intravenous administration of IV 100mL Isovue-370. Post-processing of the angiographic images was performed, with multiplanar reformation and 3D reconstruction. Individualized dose optimization techniques were used for this CT. COMPARISON: FINDINGS: Normal enhancement of the main pulmonary artery and right and left pulmonary arteries. Normal enhancement of the bilateral peripheral pulmonary arteries. There is no demonstrated pulmonary embolism. Normal thoracic aorta and visualized great vessels. There is no demonstrated aortic dissection. Normal heart and pericardium. Mild enlargement of the mediastinal and hilar lymph nodes suggesting inflammatory process . Normal visualized trachea and bronchi. The lungs are well expanded. Subpleural reticular interstitial opacities consistent with chronic interstitial lung disease. Normal pleura. Normal chest wall structures. There are degenerative changes of thoracic spine. Cholelithiasis. CT/CTA Chest W/WO Contrast IMPRESSION: Chronic interstitial lung disease. No demonstrated pulmonary embolism or arterial dissection. Cholelithiasis. Electronically Signed: Joanne Wood MD at 21:49 EDT ,
--- NOTE | 2023-06-01 20:09 | ED.RN ---
ambulated pt back to room from restroom. spo2 66% on RA. 4L NC O2 placed. pt sp02 now 91% on 2L NC. pt resting in bed call light within reach.
[2023-06-01 20:53] LABS: Anion Gap 10 (5-15); BUN 17 mg/dL (7-18); BUN/Creat Ratio 19.3 RATIO (10-20); Calcium,Total 9.1 mg/dL (8.5-10.1); Chloride 103 mmol/L (98-107); Creatinine, Serum 0.88 mg/dL (0.55-1.02); EST Glomerular Filtration Rate 67 mL/min (>60); Est Glom Filt Rate - Afr Amer 81 mL/min (>60); Estimated Creatinine Clearance 50.63 ml/min; Glucose 177 mg/dL (74-106); Potassium 3.4 mmol/L (3.5-5.1); Sodium Level 139 mmol/L (136-145); Troponin-I HS 282 pg/mL (3.0-54.0)
--- NOTE | 2023-06-01 21:33 | ED.RN ---
pt assisted up bsc spo2 dropped to 73% on 2L NC. on 6L NC pt spo2 mid 80s. assisted back to bed with call light within reach. pt now 92% 2L NC. doctor updated.
--- NOTE | 2023-06-01 22:35 | HP.PCM.HOS_ITS ---
HPI - General General Date of Admission: 06/01/23 Date of Service: 06/01/23 Chief Complaint: Shortness of breath and cough HPI Narrative ISIDRA WARREN, is a 72 F with a significant history of rheumatoid arthritis and hypertension who presents emergency department with shortness and cough that started about a week before presentation. Her Shortness of breath is progressively getting worse. She went to her PCP. Chest x-ray was done. Chest x-ray was okay. Patient was started on Trelegy but she thinks that the Trelegy is not helping her. She reports a low-grade fever at home with highest temperature of about 100 F. She reports chills. She thinks that her cough is from a post nasal drip. She reports her sputum was white and thick. Her shortness of breath is mild at rest and increases excessively with mild exertion. Patient was brought to emergency department by paramedics. Of note reportedly when paramedics found patient; her oxygen saturation was 80%. She was placed on 2 L nasal cannula oxygen. At the emergency department his oxygen saturation with ambulation for distance of about 20 feet was 60%. She had elevated troponin but denies any chest pain. [facility] Medical History Abrasion Ambulates with cane Arthritis Back pain Back problem C. difficile colitis Elevated glucose Gastric reflux GERD (gastroesophageal reflux disease) Hearing difficulty High blood pressure High cholesterol History of diverticulitis History of hiatal hernia History of steroid therapy History of ulceration HTN (hypertension) IBS (irritable bowel syndrome) Low back pain Neuropathy Obesity Osteoarthritis Osteopenia Psoriatic arthritis Smoker Uses wheelchair Walker as ambulation aid Wears glasses Home Medications omega-3 fatty acids-fish oil 340 mg-1,000 mg capsule (Fish Oil) 1,000 mg PO DAILY 11/10/15 [History Last Taken 11/17/15 09:55] tizanidine 4 mg tablet 4 mg PO QHS 11/10/15 [History Last Taken 11/16/15 21:30] calcium carbonate 600 mg calcium (1,500 mg) tablet 2,000 mg PO DAILY 11/17/15 [History Last Taken 11/17/15 12:30] cholecalciferol (vitamin D3) 25 mcg (1,000 unit) tablet (Vitamin D3) 1,000 unit PO BID 11/17/15 [History Last Taken 11/16/15 21:25] hydrochlorothiazide 25 mg tablet 25 mg PO DAILY #30 TABLETS 11/20/15 [Rx Last Taken Unknown] meloxicam 7.5 mg tablet 15 mg PO DAILY 10/14/16 [History Last Taken Unknown] folic acid 1 mg tablet 1 mg PO DAILY 04/05/22 [History Last Taken Unknown] losartan 50 mg tablet 50 mg PO DAILY 04/05/22 [History Last Taken 05/01/22] melatonin 10 mg capsule 10 mg PO HS PRN Sleep 04/05/22 [History Last Taken Unknown] prednisone 5 mg tablet 1 tab PO DAILY 04/30/22 [History Last Taken Unknown] buprenorphine 15 mcg/hour weekly transdermal patch 1 patch transdermal Q7D 05/27/23 [History Last Taken Unknown] fluconazole 150 mg tablet 150 mg PO Q3D PRN 05/27/23 [History Last Taken Unknown] hydrocodone 10 mg-acetaminophen 325 mg tablet 0.25 tab PO DAILY PRN pain 05/27/23 [History Last Taken Unknown] hydrocodone 10 mg-acetaminophen 325 mg tablet 0.5 tab PO BID Pain 05/27/23 [History Last Taken Unknown] lansoprazole 30 mg capsule,delayed release 30 mg PO DAILY 05/27/23 [History Last Taken Unknown] methotrexate sodium 2.5 mg tablet 20 mg PO QWEEK 05/27/23 [History Last Taken Unknown] pantoprazole 40 mg tablet,delayed release 40 mg PO DAILY 05/27/23 [History Last Taken Unknown] tenapanor 50 mg tablet (Ibsrela) 50 mg PO DAILY 05/27/23 [History Last Taken Unknown] Allergy/AdvReac Type Severity Reaction Status Date / Time duloxetine [From Cymbalta] Allergy Intermediate Swelling Verified 06/01/23 17:42 erythromycin base Allergy Nausea/Vom/ Verified 06/01/23 17:42 Diarrhea pregabalin [From Lyrica] Allergy Swelling Verified 06/01/23 17:42 Family History Mother Diabetes Arthritis Heart disease CVA (cerebral vascular accident) Hypertension History of blood transfusion Father Pancreatic cancer Alcoholism Peptic ulcer disease Son Seizures Suicide attempt Surgical History H/O laminectomy History of appendectomy History of appendectomy History of breast biopsy History of colonoscopy (05/01/02) History of foot surgery History of spinal surgery Social History Smoking Status: Current some day smoker tobacco type: cigarettes alcohol intake: never substance use type: does not use what type of physical activity do you participate in: none seatbelt use: always do you feel safe at home: Yes ROS ROS Narrative Pertinent positives and pertinent negatives as noted in HPI. All other systems were reviewed and are negative Vital Signs Vital Signs Vital Signs: 06/01/23 17:42 06/01/23 17:47 06/01/23 17:48 Temperature 99.3 F H Temperature Source Temporal Pulse Rate 111 H Respiratory Rate 23 H Respiratory Effort Short of Breath Labored Blood Pressure 151/92 H Blood Pressure Mean 111 Pulse Ox 90 94 Oxygen Delivery Method Nasal Cannula Nasal Cannula Nasal Cannula Oxygen Flow Rate (L/min) 2 3 3 06/01/23 17:47 06/01/23 18:12 06/01/23 18:12 Temperature 99.3 F H Temperature Source Temporal Pulse Rate 105 H 104 H Respiratory Rate 21 H 23 H Respiratory Effort Blood Pressure 151/92 H Blood Pressure Mean 111 Pulse Ox 94 95 Oxygen Delivery Method Nasal Cannula Nasal Cannula Oxygen Flow Rate (L/min) 3 3 06/01/23 19:02 06/01/23 20:05 06/01/23 20:04 Temperature Temperature Source Pulse Rate 98 107 H Respiratory Rate 20 H 28 H Respiratory Effort Blood Pressure 148/74 H 100/76 Blood Pressure Mean 98 84 Pulse Ox 94 91 66 Oxygen Delivery Method Nasal Cannula Nasal Cannula Room Air Oxygen Flow Rate (L/min) 2 2 06/01/23 21:36 Temperature Temperature Source Pulse Rate 88 Respiratory Rate 26 H Respiratory Effort Blood Pressure 129/76 H Blood Pressure Mean 93 Pulse Ox 92 Oxygen Delivery Method Nasal Cannula Oxygen Flow Rate (L/min) 2 Weight Weight: 104 kg Body Mass Index (BMI) 39.3 Physical Exam Narrative Physical exam: General: Well-nourished, well-developed. Head: Normocephalic, atraumatic, no tenderness Eyes: Vision is grossly intact. EOMI ENT, no trauma, moist mucous membranes, no rhinorrhea Neck: Nontender, No thyromegaly. CVS: Coughing while being examined. Regular rate and rhythm. S1-S2 present. No murmur, gallop or rub. Respiratory : Posterior left lung with mild fine. Posterior right lungs diminished. Abdomen: Soft, nontender, nondistended, normal bowel sounds, no masses : Deferred Back: Nontender, no CVA tenderness Extremities: Nontender full range of motion, no trauma Skin: Normal color, no trauma, abrasions Neuro: Alert, oriented, cranial nerves II through XII grossly intact. Psychiatry: Normal mood. Normal affect. Not depressed. Not anxious. Results Lab / Micro Data 06/01/23 17:55 06/01/23 17:55 Labs: Laboratory Results - last 24 hr 06/01/23 17:50: Lactic Acid 1.8 06/01/23 17:55: WBC 7.2, RBC 4.34, Hgb 14.6, Hct 43.9, MCV 101.2 H, MCH 33.6 H, MCHC 33.3, RDW Std Deviation 54.2 H, RDW Coeff of Sonya 15.0 H, Plt Count 253, MPV 10.1, Immature Gran % (Auto) 0.600, Neut % (Auto) 79.8 H, Lymph % (Auto) 8.3 L, [place] % (Auto) 8.3, Eos % (Auto) 2.4, Baso % (Auto) 0.6, Absolute Neuts (auto) 5.8, Absolute Lymphs (auto) 0.60 L, Nucleated RBC % 0, Differential Comment SCANNED, PT 14.2, INR 1.1, APTT 28.1, Sodium 139, Potassium 3.4 L, Chloride 103, Carbon Dioxide 26.0, Anion Gap 10, BUN 17, Creatinine 0.88, Estim Creat Clear Calc 50.63, Est GFR (MDRD) Af Amer 81, Est GFR (MDRD) Non-Af 67, BUN/Creatinine Ratio 19.3, Glucose 177 H, Calcium 9.1, Total Bilirubin 0.80, Direct Bilirubin 0.22, AST 32, ALT 20, Alkaline Phosphatase 77, Troponin I High Sens 282 H*, Total Protein 7.6, Albumin 3.2, Globulin 4.4 H Micro: Microbiology 06/01/23 18:00 Nasal Secretion SARS-CoV-2 & FLU Antigen (Rapid) - Final Radiology Impression Chest X-Ray 06/01/23 18:28 IMPRESSION: Chronic interstitial lung disease. Electronically Signed: Joanne Wood MD at 18:52 EDT , Chest CTA 06/01/23 19:08 IMPRESSION: Chronic interstitial lung disease. No demonstrated pulmonary embolism or arterial dissection. Cholelithiasis. Electronically Signed: Joanne Wood MD at 21:49 EDT , Assessment & Plan Assessment/Plan (1) Acute dyspnea: PLAN: Plan Dyspnea with Hypoxia Impression chest x-ray radiology: Chronic interstitial lung disease.Chest x-ray was independently interpreted and I agree with radiologist interpretation. Rapid COVID antigen was negative. COVID PCR ordered in the ED, follow. We will check comprehensive respiratory pathogen panel. We will check echocardiogram. Continue oxygen by nasal cannula. Titrate as necessary. Elevated troponin Likely demand ischemia. Cannot rule out non-STEMI. Troponin presentation was 282. Patient denies chest pain. Will trend troponin at this time. Rheumatoid arthritis Stable Prednisone continued. On discharge continue home methotrexate. Prednisone continued. Time spent in the patient's overall evaluation,decision-making process, review of diagnostic data, adjustment of management, discussion with other providers, nursing nursing and ancillary staff involved in patient's care documentation, 70 minutes. Charges/Coding Visit Charges Inpatient E&M: 69464 Init Hosp L2
[2023-06-02 00:09] VITALS: BMI 36.0
[2023-06-02 00:13] VITALS: BP 128/88; PULSE 81; RESP 20; TEMP 36.6; O2SAT 95
--- NOTE | 2023-06-02 02:00 | ECHOCS_ITS ---
Procedure This was a 2D Doppler, Color Flow transthoracic echocardiogram. Contrast injection was performed. Exam performed portable in patient room. Left Ventricle Normal left ventricle. The estimated ejection fraction is 55-60 %. Right Ventricle Normal right ventricle. Normal systolic function. Atria Normal left atrium. Normal right atrium. Mitral Valve The mitral valve is structurally normal. No prolapse or stenosis seen. No mitral valve insufficiency. Tricuspid Valve Normal tricuspid valve. No tricuspid valve insufficiency. Aortic Valve The aortic valve is not well visualized in the short axis view. Pulmonic Valve The pulmonic valve is not well visualized. Great Vessels Normal aortic root. Pericardium/Pleural No pericardial effusion. Medication Diluted definity 2.5ml given slow IV push to enhance endocardial definition. MMode/2D Measurements & Calculations LVIDd: 3.1 cm IVSd: 1.0 cm Ao root diam: 3.1 cm LVIDs: 1.6 cm LVPWd: 1.0 cm RVDd: 4.7 cm FS: 46.9 % LAV(MOD-bp): 29.3 ml LVAd ap4: 25.2 cm2 SV(MOD-sp4): 48.4 ml LAV(MOD-bp) Indexed: 14.1 ml/m2 LVLd ap4: 7.2 cm LAV(MOD-sp2): 17.7 ml EDV(MOD-sp4): 73.7 ml LAV(MOD-sp4): 39.9 ml EDV(sp4-el): 74.8 ml LVAs ap4: 13.4 cm2 LVLs ap4: 6.1 cm ESV(MOD-sp4): 25.4 ml ESV(sp4-el): 24.7 ml EF(MOD-sp4): 65.6 % EF(sp4-el): 66.9 % SV(sp4-el): 50.0 ml LA A4 area: 15.8 cm2 LA dimension(2D): 4.6 cm RA A4 area: 7.0 cm2 TAPSE: 1.6 cm Time Measurements MV dec time: 0.34 sec Doppler Measurements & Calculations MV E max driss: 62.9 cm/sec Lat Peak E' Driss: 6.9 cm/sec Med Peak E' Driss: 4.4 cm/sec MV A max driss: 100.7 cm/sec E/E' lat: 9.1 E/E' med: 14.3 MV E/A: 0.62 MV dec slope: 183.0 cm/sec2 Ao V2 max: 89.2 cm/sec LV V1 max: 77.6 cm/sec Ao max P.2 mmHg LV V1 max P.4 mmHg Ao V2 mean: 67.4 cm/sec Ao mean P.9 mmHg Ao V2 VTI: 15.9 cm PA V2 max: 88.1 cm/sec PI end-d driss: 117.2 cm/sec TR max driss: 236.1 cm/sec TR max P.3 mmHg ECHO/Echo Complete W/ Contrast Interpretation Summary The estimated ejection fraction is 55-60 %. No previous study to compare Ordering Physician: Aron Pérez Referring Physician: Pedro Williamson Performed By: Elicia Alarcon, BRANDI, RVT
[2023-06-02 02:28] VITALS: BP 137/74; PULSE 81; RESP 20; TEMP 36.9; O2SAT 98
[2023-06-02 02:45] VITALS: O2SAT 98
[2023-06-02] MEDS: HYDROcodone Bitartrate/Apap 5/325 Tablet PO ×3 (02:54→22:09)
[2023-06-02 03:37] LABS: Troponin-I HS 259 pg/mL (3.0-54.0)
[2023-06-02 04:27] LABS: Absolute Lymphocyte Count 1.12 X10^3/uL (0.83-4.51); Absolute Neutrophil Count 5.7 X10^3/uL (2.0-7.7); Basophil# 0.05 X10^3/uL; Basophil% 0.6 % (0-1); Eosinophil# 0.25 X10^3/uL; Eosinophils% 3.1 % (0-5); Hematocrit 39.7 % (37-47); Hemoglobin 12.9 g/dL (12.0-15.0); Lymphocyte # 1.12 X10^3/ul (0.83-4.51); Lymphocyte % 13.9 % (19-41); Mean Corp Hgb Conc 32.5 g/dL (32-36); Mean Corpuscular Hgb 32.9 pg (27.0-32.0); Mean Corpuscular Volume 101.3 fL (81-99); Mean Platelet Vol. 10.3 fl (6.2-12.0); Monocyte# 0.96 X10^3/uL; Monocyte% 11.9 % (0-10); NRBC Flagged by Analyzer 0 % (0-5); Neutrophil # 5.65 X10^3/uL (2.7-7.7); Neutrophil % 69.9 % (47-70); Platelet Count 252 K/mm3 (150-450); RBC Distribution Width CV 15.1 % (11.6-14.6); RBC Distribution Width SD 54.9 fl (35.1-43.9); Red Blood Count 3.92 M/mm3 (4.2-5.4); White Blood Count 8.1 K/mm3 (4.4-11.0)
[2023-06-02 05:10] LABS: Troponin-I HS 237 pg/mL (3.0-54.0)
[2023-06-02 05:26] LABS: Anion Gap 8 (5-15); BUN 15 mg/dL (7-18); BUN/Creat Ratio 22.5 RATIO (10-20); Calcium,Total 8.8 mg/dL (8.5-10.1); Chloride 104 mmol/L (98-107); Creatinine, Serum 0.67 mg/dL (0.55-1.02); EST Glomerular Filtration Rate 92 mL/min (>60); Est Glom Filt Rate - Afr Amer 112 mL/min (>60); Estimated Creatinine Clearance 44.56 ml/min; Glucose 120 mg/dL (74-106); Potassium 3.4 mmol/L (3.5-5.1); Sodium Level 139 mmol/L (136-145)
[2023-06-02] MEDS: Aspirin 325 MG Tablet PO (06:03)
[2023-06-02] MEDS: Benzonatate 100 MG Capsule PO (06:03)
[2023-06-02] MEDS: Enoxaparin 100 MG/ML Syringe 95 MG SC ×2 (06:03→22:11)
[2023-06-02 06:11] VITALS: BP 139/73; PULSE 82; RESP 18; TEMP 36.6; O2SAT 94
[2023-06-02] MEDS: Folic Acid 1 MG Tablet PO (09:03)
[2023-06-02] MEDS: predniSONE 5 MG Tablet PO (09:04)
[2023-06-02] MEDS: Losartan Potassium 50 MG Tablet PO (09:04)
[2023-06-02] MEDS: hydroCHLOROthiazide 25 MG Tablet PO (09:04)
[2023-06-02] MEDS: CLARIFY ORDER NOTE (09:05)
[2023-06-02 09:11] LABS: Troponin-I HS 171 pg/mL (3.0-54.0)
[2023-06-02 10:19] VITALS: BP 156/95; PULSE 73; RESP 14; TEMP 36.7; O2SAT 93
--- NOTE | 2023-06-02 14:42 | PCM.CONS.C ---
Assessment & Plan Assessment/Plan (1) Acute dyspnea: (2) Neuropathy: (3) Acute non-ST elevation myocardial infarction (NSTEMI): PLAN: 72-year-old patient presented with symptoms of shortness of breath evidently this symptom has been ongoing for 1 week. The shortness of breath progressively got worse especially when she exerted herself when walking for a distance. Also patient reported low-grade fever Patient had a history of hypertension History of rheumatoid arthritis has been on methotrexate. GERD Cardio consultation requested for evaluation of CAD/non-STEMI As she has elevated high sensitive troponin of 282. Cardiac exam essentially S1-S2 regular No systolic or diastolic murmur. Cardiac care plan recommendations; 1. I reviewed the current evaluation here in the hospital with a EKG and a series of cardiac biomarker With the clinical impression of non-ST elevation [place]. Review of the CTA showed no evidence of pulmonary embolism and no evidence of aortic dissection. Patient is on treatment with Lovenox, aspirin, atorvastatin 2. She is concerned for invasive evaluation as her mother had a history of stroke 3. We will evaluate by echocardiogram and will discuss further plan. Patient will need further evaluation with cardiac catheterization. HPI Consult Data Date of Consult: 06/02/23 HPI Narrative Reason for Consultation: nstemi HPI Narrative: ISIDRA WARREN, is a 72 F who presents [facility] Medical History Abrasion Ambulates with cane Arthritis Back pain Back problem C. difficile colitis Elevated glucose Gastric reflux GERD (gastroesophageal reflux disease) Hearing difficulty High blood pressure High cholesterol History of diverticulitis History of hiatal hernia History of steroid therapy History of ulceration HTN (hypertension) IBS (irritable bowel syndrome) Low back pain Neuropathy Obesity Osteoarthritis Osteopenia Psoriatic arthritis Smoker Uses wheelchair Walker as ambulation aid Wears glasses Home Medications omega-3 fatty acids-fish oil 340 mg-1,000 mg capsule (Fish Oil) 1,000 mg PO DAILY supplment 11/10/15 [History Last Taken 06/01/23] tizanidine 4 mg tablet 4 mg PO QHS 11/10/15 [History Last Taken 11/16/15 21:30] calcium carbonate 600 mg calcium (1,500 mg) tablet 2,000 mg PO DAILY bone health 11/17/15 [History Last Taken 11/17/15 12:30] cholecalciferol (vitamin D3) 25 mcg (1,000 unit) tablet (Vitamin D3) 1,000 unit PO BID supplement 11/17/15 [History Last Taken 11/16/15 21:25] hydrochlorothiazide 25 mg tablet 25 mg PO DAILY #30 TABLETS 11/20/15 [Rx Last Taken Unknown] meloxicam 7.5 mg tablet 15 mg PO DAILY pain 10/14/16 [History Last Taken Unknown] folic acid 1 mg tablet 1 mg PO DAILY 04/05/22 [History Last Taken Unknown] losartan 50 mg tablet 50 mg PO DAILY 04/05/22 [History Last Taken 05/01/22] melatonin 10 mg capsule 10 mg PO HS PRN Sleep 04/05/22 [History Last Taken Unknown] prednisone 5 mg tablet 1 tab PO DAILY 04/30/22 [History Last Taken Unknown] buprenorphine 15 mcg/hour weekly transdermal patch 1 patch transdermal Q7D 05/27/23 [History Last Taken Unknown] hydrocodone 10 mg-acetaminophen 325 mg tablet 0.25 tab PO DAILY PRN pain 05/27/23 [History Last Taken Unknown] hydrocodone 10 mg-acetaminophen 325 mg tablet 0.5 tab PO BID Pain 05/27/23 [History Last Taken Unknown] lansoprazole 30 mg capsule,delayed release 30 mg PO DAILY 05/27/23 [History Last Taken Unknown] methotrexate sodium 2.5 mg tablet 20 mg PO QWEEK 05/27/23 [History Last Taken Unknown] pantoprazole 40 mg tablet,delayed release 40 mg PO DAILY gerd 05/27/23 [History Last Taken Unknown] tenapanor 50 mg tablet (Ibsrela) 50 mg PO DAILY constipation 05/27/23 [History Last Taken Unknown] Allergy/AdvReac Type Severity Reaction Status Date / Time duloxetine [From Cymbalta] Allergy Intermediate Swelling Verified 06/01/23 17:42 erythromycin base Allergy Nausea/Vom/ Verified 06/01/23 17:42 Diarrhea pregabalin [From Lyrica] Allergy Swelling Verified 06/01/23 17:42 Family History Mother Diabetes Arthritis Heart disease CVA (cerebral vascular accident) Hypertension History of blood transfusion Father Pancreatic cancer Alcoholism Peptic ulcer disease Son Seizures Suicide attempt Surgical History H/O laminectomy History of appendectomy History of appendectomy History of breast biopsy History of colonoscopy (05/01/02) History of foot surgery History of spinal surgery Social History Smoking Status: Current some day smoker tobacco type: cigarettes alcohol intake: never substance use type: does not use what type of physical activity do you participate in: none seatbelt use: always do you feel safe at home: Yes Physical Exam Cardio Cardio Narrative: Patient seen and eval at bedside along with the nursing staff Alert orientated Sitting out in a chair comfortable Does not have any active chest pain front desk monitor showed normal sinus rhythm Cardiovascular exam S1-S2 is regular Chest exam mildly diminished air entry bilateral. Examination lower extremity no lower extremity edema noted. Risk Stratification Risk Stratification Applicable: Yes Age >/= 65: Yes >/= 3 CAD Risk Factors (HTN, HLD, DM, family hx of CAD, or current smoker): No Aspirin Use in the Past 7 Days: Yes Severe Angina (>/= episodes in 24 hours): No EKG ST Changes >/= 0.5mm: No Positive Cardiac Marker: Yes GRACIE Risk Stratification Score: 3 GRACIE % Risk: 13% Risk Objective Data Vital Signs: Vital Signs Temp Pulse Resp BP Pulse Ox O2 Del Method O2 Flow Rate 98.1 F 73 14 156/95 H 93 Nasal Cannula 4 06/02/23 10:19 06/02/23 10:19 06/02/23 10:19 06/02/23 10:19 06/02/23 10:19 06/02/23 10:19 06/02/23 10:19 Oxygen Flow Rate (L/min) 4 Oxygen Delivery Method Nasal Cannula Weight: 210 lb 1.608 oz Body Mass Index (BMI) 36.0 Intake & Output: Intake and Output for Last 24 Hours 05/31/23 06/01/23 06/02/23 23:59 23:59 23:59 Intake Total 120 / 120 Balance 120 / 120 Lab / Micro Data 06/02/23 04:20 06/02/23 04:20 Labs: Laboratory Results - last 24 hr 06/01/23 17:50: Lactic Acid 1.8 06/01/23 17:55: WBC 7.2, RBC 4.34, Hgb 14.6, Hct 43.9, MCV 101.2 H, MCH 33.6 H, MCHC 33.3, RDW Std Deviation 54.2 H, RDW Coeff of Sonya 15.0 H, Plt Count 253, MPV 10.1, Immature Gran % (Auto) 0.600, Neut % (Auto) 79.8 H, Lymph % (Auto) 8.3 L, [place] % (Auto) 8.3, Eos % (Auto) 2.4, Baso % (Auto) 0.6, Absolute Neuts (auto) 5.8, Absolute Lymphs (auto) 0.60 L, Nucleated RBC % 0, Differential Comment SCANNED, PT 14.2, INR 1.1, APTT 28.1, Sodium 139, Potassium 3.4 L, Chloride 103, Carbon Dioxide 26.0, Anion Gap 10, BUN 17, Creatinine 0.88, Estim Creat Clear Calc 50.63, Est GFR (MDRD) Af Amer 81, Est GFR (MDRD) Non-Af 67, BUN/Creatinine Ratio 19.3, Glucose 177 H, Calcium 9.1, Total Bilirubin 0.80, Direct Bilirubin 0.22, AST 32, ALT 20, Alkaline Phosphatase 77, Troponin I High Sens 282 H*, Total Protein 7.6, Albumin 3.2, Globulin 4.4 H 06/02/23 02:48: Troponin I High Sens 259 H* 06/02/23 04:20: WBC 8.1, RBC 3.92 L, Hgb 12.9, Hct 39.7, MCV 101.3 H, MCH 32.9 H, MCHC 32.5, RDW Std Deviation 54.9 H, RDW Coeff of Sonya 15.1 H, Plt Count 252, MPV 10.3, Immature Gran % (Auto) 0.600, Neut % (Auto) 69.9, Lymph % (Auto) 13.9 L, [place] % (Auto) 11.9 H, Eos % (Auto) 3.1, Baso % (Auto) 0.6, Absolute Neuts (auto) 5.7, Absolute Lymphs (auto) 1.12, Nucleated RBC % 0, Sodium 139, Potassium 3.4 L, Chloride 104, Carbon Dioxide 27.0, Anion Gap 8, BUN 15, Creatinine 0.67, Estim Creat Clear Calc 44.56, Est GFR (MDRD) Af Amer 112, Est GFR (MDRD) Non-Af 92, BUN/Creatinine Ratio 22.5 H, Glucose 120 H, Calcium 8.8, Troponin I High Sens 237 H* 06/02/23 08:23: Troponin I High Sens 171 H* Micro: Microbiology 06/01/23 23:23 Mucosa - Nasopharyngeal Respiratory Panel (PCR) - Final 06/01/23 23:23 Mucosa - Nasopharyngeal Coronavirus COVID-19 PCR - Final 06/01/23 18:00 Nasal Secretion SARS-CoV-2 & FLU Antigen (Rapid) - Final Cardiology Labs/Tests 06/01/23 17:50: Lactic Acid 1.8 06/01/23 17:55: WBC 7.2, RBC 4.34, Hgb 14.6, Hct 43.9, MCV 101.2 H, MCH 33.6 H, MCHC 33.3, Plt Count 253, MPV 10.1, Immature Gran % (Auto) 0.600, Neut % (Auto) 79.8 H, Lymph % (Auto) 8.3 L, [place] % (Auto) 8.3, Eos % (Auto) 2.4, Baso % (Auto) 0.6, Absolute Neuts (auto) 5.8, Nucleated RBC % 0, PT 14.2, INR 1.1, APTT 28.1, Sodium 139, Potassium 3.4 L, Chloride 103, Carbon Dioxide 26.0, Anion Gap 10, BUN 17, Creatinine 0.88, Est GFR (MDRD) Af Amer 81, Est GFR (MDRD) Non-Af 67, BUN/Creatinine Ratio 19.3, Glucose 177 H, Calcium 9.1, Total Bilirubin 0.80, Direct Bilirubin 0.22 06/02/23 04:20: WBC 8.1, RBC 3.92 L, Hgb 12.9, Hct 39.7, MCV 101.3 H, MCH 32.9 H, MCHC 32.5, Plt Count 252, MPV 10.3, Immature Gran % (Auto) 0.600, Neut % (Auto) 69.9, Lymph % (Auto) 13.9 L, [place] % (Auto) 11.9 H, Eos % (Auto) 3.1, Baso % (Auto) 0.6, Absolute Neuts (auto) 5.7, Nucleated RBC % 0, Sodium 139, Potassium 3.4 L, Chloride 104, Carbon Dioxide 27.0, Anion Gap 8, BUN 15, Creatinine 0.67, Est GFR (MDRD) Af Amer 112, Est GFR (MDRD) Non-Af 92, BUN/Creatinine Ratio 22.5 H, Glucose 120 H, Calcium 8.8 Rhythm: EKG: ECHO: Stress Test: Cardiac Cath: PCI: CT Surgery: Holter monitor: EPS: PPM: CXR: Chest CT Scan: Radiography Diagnostic Testing: Radiology Impression Chest X-Ray 06/01/23 18:28 IMPRESSION: Chronic interstitial lung disease. Electronically Signed: Joanne Wood MD at 18:52 EDT , Chest CTA 06/01/23 19:08 IMPRESSION: Chronic interstitial lung disease. No demonstrated pulmonary embolism or arterial dissection. Cholelithiasis. Electronically Signed: Joanne Wood MD at 21:49 EDT ,
[2023-06-02 16:00] VITALS: BP 155/88; PULSE 78; RESP 12; TEMP 36.8; O2SAT 93
--- NOTE | 2023-06-02 18:04 | PCM.PN.HOSP ---
Reason for Visit Reason for Visit: Diagnoses Polyneuropathy, unspecified (06/01/23) Non-ST elevation (NSTEMI) myocardial infarction (06/01/23) Dyspnea, unspecified (06/01/23) Subjective Subjective Patient was seen and examined today, she is currently on 4 L of nasal cannula oxygen, cardiology is planning on a heart catheterization tomorrow-patient doubts she is going to be able to lay flat because of previous back surgeries, I am skeptical that she is able to undergo a catheterization due to the fact she is on 4 L of oxygen. Patient has coarse crackles throughout both lungs, I think she has undiagnosed pulmonary fibrosis, I will have pulmonary medicine see her tomorrow. I talked with cardiology today (Dr. Miguel) and he requested I give her dose of Lasix which I put in the computer. Patient states she was put on some sort of an inhaler although she does not call in an inhaler at her last office visit with Dr. Anders Williamson. It appears that she was put on a Trelegy inhaler. Patient told me that she has been short of breath for at least the last several months. Objective Data Objective Data Vital Signs: Vital Signs Temp Pulse Resp BP Pulse Ox O2 Del Method O2 Flow Rate 98.3 F 78 12 155/88 H 93 Nasal Cannula 4 06/02/23 16:00 06/02/23 16:00 06/02/23 16:00 06/02/23 16:00 06/02/23 16:00 06/02/23 16:00 06/02/23 16:00 Oxygen Flow Rate (L/min) 4 Oxygen Delivery Method Nasal Cannula Weight: 95.3 kg Body Mass Index (BMI) 36.0 Intake & Output: Intake and Output for Last 24 Hours 05/31/23 06/01/23 06/02/23 23:59 23:59 23:59 Intake Total 240 / 240 Balance 240 / 240 Lab / Micro Data 06/02/23 04:20 06/02/23 04:20 Labs: Laboratory Results - last 24 hr 06/01/23 17:50: Lactic Acid 1.8 06/01/23 17:55: WBC 7.2, RBC 4.34, Hgb 14.6, Hct 43.9, MCV 101.2 H, MCH 33.6 H, MCHC 33.3, RDW Std Deviation 54.2 H, RDW Coeff of Sonya 15.0 H, Plt Count 253, MPV 10.1, Immature Gran % (Auto) 0.600, Neut % (Auto) 79.8 H, Lymph % (Auto) 8.3 L, [place] % (Auto) 8.3, Eos % (Auto) 2.4, Baso % (Auto) 0.6, Absolute Neuts (auto) 5.8, Absolute Lymphs (auto) 0.60 L, Nucleated RBC % 0, Differential Comment SCANNED, PT 14.2, INR 1.1, APTT 28.1, Sodium 139, Potassium 3.4 L, Chloride 103, Carbon Dioxide 26.0, Anion Gap 10, BUN 17, Creatinine 0.88, Estim Creat Clear Calc 50.63, Est GFR (MDRD) Af Amer 81, Est GFR (MDRD) Non-Af 67, BUN/Creatinine Ratio 19.3, Glucose 177 H, Calcium 9.1, Total Bilirubin 0.80, Direct Bilirubin 0.22, AST 32, ALT 20, Alkaline Phosphatase 77, Troponin I High Sens 282 H*, Total Protein 7.6, Albumin 3.2, Globulin 4.4 H 06/02/23 02:48: Troponin I High Sens 259 H* 06/02/23 04:20: WBC 8.1, RBC 3.92 L, Hgb 12.9, Hct 39.7, MCV 101.3 H, MCH 32.9 H, MCHC 32.5, RDW Std Deviation 54.9 H, RDW Coeff of Sonya 15.1 H, Plt Count 252, MPV 10.3, Immature Gran % (Auto) 0.600, Neut % (Auto) 69.9, Lymph % (Auto) 13.9 L, [place] % (Auto) 11.9 H, Eos % (Auto) 3.1, Baso % (Auto) 0.6, Absolute Neuts (auto) 5.7, Absolute Lymphs (auto) 1.12, Nucleated RBC % 0, Sodium 139, Potassium 3.4 L, Chloride 104, Carbon Dioxide 27.0, Anion Gap 8, BUN 15, Creatinine 0.67, Estim Creat Clear Calc 44.56, Est GFR (MDRD) Af Amer 112, Est GFR (MDRD) Non-Af 92, BUN/Creatinine Ratio 22.5 H, Glucose 120 H, Calcium 8.8, Troponin I High Sens 237 H* 06/02/23 08:23: Troponin I High Sens 171 H* Micro: Microbiology 06/01/23 23:23 Mucosa - Nasopharyngeal Respiratory Panel (PCR) - Final 06/01/23 23:23 Mucosa - Nasopharyngeal Coronavirus COVID-19 PCR - Final 06/01/23 18:00 Nasal Secretion SARS-CoV-2 & FLU Antigen (Rapid) - Final Radiography Diagnostic Testing: Radiology Impression Chest X-Ray 06/01/23 18:28 IMPRESSION: Chronic interstitial lung disease. Electronically Signed: Joanne Wood MD at 18:52 EDT , Chest CTA 06/01/23 19:08 IMPRESSION: Chronic interstitial lung disease. No demonstrated pulmonary embolism or arterial dissection. Cholelithiasis. Electronically Signed: Joanne Wood MD at 21:49 EDT , Echocardiogram 06/02/23 02:00 Interpretation Summary The estimated ejection fraction is 55-60 %. No previous study to compare Ordering Physician: Aron Pérez Referring Physician: Pedro Williamson Performed By: Elicia Alarcon, BRANDI, RVT Physical Exam Const alert, oriented x3 and no apparent distress General Appearance: cooperative, well kempt and well developed Orientation / Consciousness: awake, oriented to person, oriented to place and oriented to time HEENT normocephalic, head/scalp atraumatic and moist oral mucous membranes Eyes PERRL, EOMs intact bilaterally and conjunctivae normal Neck supple, no JVD, thyroid normal and no carotid bruits General: trachea midline Resp normal respiratory effort, no retractions and no use of accessory muscles Resp Narrative: Patient has inspiratory rales over all lung mi bilaterally Auscultation: rales bilateral; Negative for rhonchi or wheezes Cardio regular rate, regular rhythm, S1 normal heart sound, S2 normal heart sound, no murmurs, no rub and no gallops GI normal to inspection, nondistended, normoactive bowel sounds, soft to palpation, non-tender and non-distended Extremity no clubbing, cyanosis or edema Skin no rashes or lesions noted General Skin Exam: no breakdown Neuro oriented x3, CN's II-XII intact bilaterally, moves all extremities, no focal motor deficits and no sensory deficits noted Sensorium / Orientation: awake, alert, oriented to person, oriented to place and oriented to time Speech: speech normal Psych affect normal Assessment & Plan Assessment/Plan (1) Acute non-ST elevation myocardial infarction (NSTEMI): PLAN: Plan 1. [id number] the plan is for the patient undergo a cardiac catheterization tomorrow, will give the patient 1 dose of IV Lasix tonight, BMP will be rechecked tomorrow, I gave the patient potassium today, patient's echocardiogram today showed normal EF. 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
[2023-06-02] MEDS: 0.9% Saline Lock 10 ML Syringe IV (18:19)
[2023-06-02] MEDS: Furosemide 40 MG/4 ML Vial IV (18:19)
[2023-06-02] MEDS: Potassium Chloride Oral Tablet 20 MEQ 60 MEQ PO (18:44)
[2023-06-02] MEDS: tiZANidine HCl 2 MG Tablet 4 MG PO (22:09)
[2023-06-02] MEDS: Atorvastatin Calcium 40 MG Tablet PO ×2 (22:09→22:23)
[2023-06-02] MEDS: Pantoprazole Sodium 40 MG Tablet PO (22:24)
[2023-06-03] VITALS (16 sets, daily range): BP systolic 111–145; BP diastolic 50–84; PULSE 78–104; RESP 15–22; TEMP 36.3–36.7; O2SAT 88–100
[2023-06-03] MEDS: Budesonide Respules 0.5 MG/2 ML AMPUL.NEB. INHALATION ×2 (06:59→19:35)
[2023-06-03] MEDS: Ipratropium/Albuterol Sulfate 3 ML AMPUL.NEB INHALATION ×3 (06:59→19:35)
[2023-06-03 07:33] LABS: Anion Gap 4 (5-15); BUN 29 mg/dL (7-18); BUN/Creat Ratio 31.4 RATIO (10-20); Calcium,Total 9.4 mg/dL (8.5-10.1); Chloride 103 mmol/L (98-107); Creatinine, Serum 0.92 mg/dL (0.55-1.02); EST Glomerular Filtration Rate 64 mL/min (>60); Est Glom Filt Rate - Afr Amer 77 mL/min (>60); Estimated Creatinine Clearance 48.43 ml/min; Glucose 112 mg/dL (74-106); Sodium Level 137 mmol/L (136-145)
[2023-06-03] MEDS: Aspirin 81 MG TAB.CHEW PO (07:47)
[2023-06-03] MEDS: Losartan Potassium 50 MG Tablet PO (07:47)
--- NOTE | 2023-06-03 09:48 | PN.CARD_ITS ---
Documented by User: STORM Calvo 06/03/23 13:08 Subjective Subjective Pt seen and examined. Pt does not have any CP. She does still have a cough and is requiring O2. She does not have any swelling. Objective Data Vital Signs: Vital Signs Temp Pulse Resp BP Pulse Ox O2 Del Method O2 Flow Rate 97.9 F 104 H 20 H 145/66 H 91 Nasal Cannula 4 06/03/23 07:41 06/03/23 07:41 06/03/23 07:41 06/03/23 07:41 06/03/23 07:41 06/03/23 08:39 06/03/23 08:39 Oxygen Flow Rate (L/min) 4 Oxygen Delivery Method Nasal Cannula Weight: 210 lb 1.608 oz Body Mass Index (BMI) 36.0 Intake & Output: Intake and Output for Last 24 Hours 06/01/23 06/02/23 06/03/23 23:59 23:59 23:59 Intake Total 600 / 600 Balance 600 / 600 Lab / Micro Data 06/02/23 04:20 06/03/23 06:16 Labs: Laboratory Results - last 24 hr 06/03/23 06:16: Sodium 137, Potassium 4.0, Chloride 103, Carbon Dioxide 30.0, Anion Gap 4 L, BUN 29 H, Creatinine 0.92, Estim Creat Clear Calc 48.43, Est GFR (MDRD) Af Amer 77, Est GFR (MDRD) Non-Af 64, BUN/Creatinine Ratio 31.4 H, Glucose 112 H, Calcium 9.4 Micro: Microbiology 06/01/23 23:23 Mucosa - Nasopharyngeal Respiratory Panel (PCR) - Final Cardiology Labs/Tests 06/03/23 06:16: Sodium 137, Potassium 4.0, Chloride 103, Carbon Dioxide 30.0, Anion Gap 4 L, BUN 29 H, Creatinine 0.92, Est GFR (MDRD) Af Amer 77, Est GFR (MDRD) Non-Af 64, BUN/Creatinine Ratio 31.4 H, Glucose 112 H, Calcium 9.4 Rhythm: NSR CXR: 06/01/2023 Chronic interstitial lung disease. Chest CT Scan:06/01/2023 Chronic interstitial lung disease. No demonstrated pulmonary embolism or arterial dissection. Cholelithiasis. Radiography Diagnostic Testing: Radiology Impression Echocardiogram 06/02/23 02:00 Interpretation Summary The estimated ejection fraction is 55-60 %. No previous study to compare Ordering Physician: Aron Pérez Referring Physician: Pedro Williamson Performed By: Elicia Alarcon, BRANDI, RVT Physical Exam Const alert, oriented x3 and no apparent distress General Appearance: cooperative, well kempt and well developed Orientation / Consciousness: awake, oriented to person, oriented to place and oriented to time HEENT normocephalic, head/scalp atraumatic and moist oral mucous membranes Eyes PERRL, EOMs intact bilaterally and conjunctivae normal Neck supple, no JVD, thyroid normal and no carotid bruits General: trachea midline Resp normal respiratory effort, no retractions and no use of accessory muscles Resp Narrative: Patient has inspiratory rales t/o, On O2 Auscultation: rales bilateral; Negative for rhonchi or wheezes Cardio regular rate, regular rhythm, S1 normal heart sound, S2 normal heart sound, no murmurs, no rub and no gallops GI normal to inspection, nondistended, normoactive bowel sounds, soft to palpation, non-tender and non-distended Extremity no clubbing, cyanosis or edema Skin no rashes or lesions noted General Skin Exam: no breakdown Neuro oriented x3, CN's II-XII intact bilaterally, moves all extremities, no focal motor deficits and no sensory deficits noted Sensorium / Orientation: awake, alert, oriented to person, oriented to place and oriented to time Speech: speech normal Psych affect normal Assessment & Plan Assessment/Plan (1) Acute non-ST elevation myocardial infarction (NSTEMI): (2) Acute dyspnea: (3) Neuropathy: (4) High blood pressure: PLAN: Plan * Troponins trended 282/259/237/171, pt currently does not have any symptoms of angina. EF is preserved. With elevated Troponin would like to pursue diagnostic heart cath. Pt is agreeable to proceed. However, question if she will be able to lay flat for test as she does have a persistent cough and has need for O2. If we are not able to proceed with heart cath during this hospital stay recommend doing this on OP basis. * Pt is currently on Lovenox. She will continue with her Cozaar, atorvastatin and ASA. May consider adding a low dose metoprolol after heart cath or at D/c. * BP is controlled on current home medications. Charges/Coding Multi Select Codes Visit Charges Visit Charges: 31432 Subs Hosp L3 Documented by User: Dr. Charlene Miguel MD 06/03/23 16:43 Lab / Micro Data 06/02/23 04:20 06/03/23 06:16 Assessment & Plan Assessment/Plan (1) Acute non-ST elevation myocardial infarction (NSTEMI): (2) Acute dyspnea: (3) Neuropathy: (4) High blood pressure: PLAN: Plan * Troponins trended 282/259/237/171, pt currently does not have any symptoms of angina. EF is preserved. With elevated Troponin would like to pursue diagnostic heart cath. Pt is agreeable to proceed. However, question if she will be able to lay flat for test as she does have a persistent cough and has need for O2. If we are not able to proceed with heart cath during this hospital stay recommend doing this on OP basis. * Pt is currently on Lovenox. She will continue with her Cozaar, atorvastatin and ASA. May consider adding a low dose metoprolol after heart cath or at D/c. * BP is controlled on current home medications. I independently reviewed all the current evaluation of this patient in the hospital including the EKG, imaging studies, cardiac catheterization which revealed the mid RCA lesion significant at least like 80% patient underwent successful PCI using drug-eluting stent to the RCA with excellent result No symptoms of chest pain reported And she been stable hemodynamically in the [employer]. Patient will continue on dual antiplatelet therapy/DAPT Brilinta 90 mg twice daily in addition to low-dose aspirin 81 mg Also patient is scheduled for stage I cardiac rehab program at [facility] Patient will follow-up with cardiology team for continuation of cardiac care. I concur with cardiac care plan as per midlevel note and documentation. Charlene Miguel MD,FACC,[facility]
--- NOTE | 2023-06-03 10:42 | CASEMGMT ---
Discharge Planning Insurance review for hospitals In-network with?[employer] [facility] insurance if transfer is recommended is as follows: [facility], [facility], [facility], [facility], [facility]), and . Tomasa Johns, Discharge Planning Asst.
[2023-06-03] MEDS: HYDROcodone Bitartrate/Apap 5/325 Tablet PO ×3 (11:13→22:03)
[2023-06-03] MEDS: Benzonatate 100 MG Capsule PO ×3 (11:13→20:34)
--- NOTE | 2023-06-03 12:20 | CON.PCM.CC_ITS ---
Assessment & Plan Assessment/Plan (1) Acute dyspnea: PLAN: Plan RECOMMENDATIONS: 1. Wean supplemental oxygen to maintain saturations at or above 90%. 2. Continue bronchodilator therapy. 3. Diuresis as tolerated by hemodynamics and renal function. 4. Encourage incentive spirometer use and mobilize patient as tolerated. 5. Check APRIL with reflex, CCP antibody, rheumatoid factor and ANCA. 6. Outpatient pulmonary follow-up in 2 weeks. Recommend baseline PFTs. IMPRESSIONS: 1. Shortness of breath and hypoxemia The patient has a questionable history of COPD, but has never been seen by a small package and bundle sorter clerk or completed pulmonary function studies. CTA chest demonstrated findings of bibasilar subpleural interstitial septal thickening and groundglass opacities, which could represent an evolving interstitial lung process. The flor stapleton has a reported history of psoriatic arthritis and is currently being managed by an outside post acute care registered nurse. At this time, I would recommend that we send off an autoimmune/vasculitis panel. Ultimately, the patient needs to follow-up in the pulmonary medicine clinic after discharge so that baseline PFTs can be obtained. Her lung function will need to be monitored longitudinally for any decline in total lung capacity. If the patient continues to demonstrate evidence of progressive interstitial lung disease, consideration can be given to the initiation of an antifibrotic agent on an outpatient basis. Otherwise, I would defer additional work-up to cardiology, including the need for cardiac catheterization. 2. NSTEMI Medical management per cardiology recommendations. This note was generated with [employer] dictation software. It may contain incorrect words, spelling, and punctuation that were not noted in checking the note before signing. HPI Consult Data Date of Consult: 06/03/23 HPI Narrative Reason for Consultation: Pulmonary fibrosis HPI Narrative: The patient is a 72-year-old female, with a history as outlined below, who presented to the emergency department via EMS on June 01 with progressive dyspnea. The patient has been smoking on and off since the age of 17. Most recently, she has cut back to smoking 3 cigarettes/day. She has never been seen by a small package and bundle sorter clerk or completed pulmonary function studies. Her PCP recently provided her with a sample of Trelegy Ellipta, which she reported did not provide her any symptom relief. She has never experienced any high risk occupational exposures. She does have a history of psoriatic arthritis and is currently followed by an outside post acute care registered nurse. On presentation to the emergency department, the patient was noted to be febrile with a temperature of 99.3 ?F. She was mildly tachycardic and tachypneic, but was otherwise hemodynamically stable. Initial laboratory evaluation demonstrated no evidence of a leukocytosis. Coagulation profile was within normal limits. Lactate was within normal limits. Chemistry profile was notable only for a potassium of 3.4. Troponin was elevated at 282. CTA chest showed no evidence for pulmonary embolism. However, there was evidence of bibasilar subpleural interstitial septal thickening and groundglass opacities. The patient was initially admitted to the hospital for management of her NSTEMI. [facility] Medical History Abrasion Ambulates with cane Arthritis Back pain Back problem C. difficile colitis Elevated glucose Gastric reflux GERD (gastroesophageal reflux disease) Hearing difficulty High blood pressure High cholesterol History of diverticulitis History of hiatal hernia History of steroid therapy History of ulceration HTN (hypertension) IBS (irritable bowel syndrome) Low back pain Neuropathy Obesity Osteoarthritis Osteopenia Psoriatic arthritis Smoker Uses wheelchair Walker as ambulation aid Wears glasses Home Medications omega-3 fatty acids-fish oil 340 mg-1,000 mg capsule (Fish Oil) 1,000 mg PO DAILY supplment 11/10/15 [History Last Taken 06/01/23] tizanidine 4 mg tablet 4 mg PO QHS 11/10/15 [History Last Taken 11/16/15 21:30] calcium carbonate 600 mg calcium (1,500 mg) tablet 2,000 mg PO DAILY bone health 11/17/15 [History Last Taken 11/17/15 12:30] cholecalciferol (vitamin D3) 25 mcg (1,000 unit) tablet (Vitamin D3) 1,000 unit PO BID supplement 11/17/15 [History Last Taken 11/16/15 21:25] hydrochlorothiazide 25 mg tablet 25 mg PO DAILY #30 TABLETS 11/20/15 [Rx Last Taken Unknown] meloxicam 7.5 mg tablet 15 mg PO DAILY pain 10/14/16 [History Last Taken Unknown] folic acid 1 mg tablet 1 mg PO DAILY 04/05/22 [History Last Taken Unknown] losartan 50 mg tablet 50 mg PO DAILY 04/05/22 [History Last Taken 05/01/22] melatonin 10 mg capsule 10 mg PO HS PRN Sleep 04/05/22 [History Last Taken Unknown] prednisone 5 mg tablet 1 tab PO DAILY 04/30/22 [History Last Taken Unknown] buprenorphine 15 mcg/hour weekly transdermal patch 1 patch transdermal Q7D 05/27/23 [History Last Taken Unknown] hydrocodone 10 mg-acetaminophen 325 mg tablet 0.25 tab PO DAILY PRN pain 05/27/23 [History Last Taken Unknown] hydrocodone 10 mg-acetaminophen 325 mg tablet 0.5 tab PO BID Pain 05/27/23 [His tory Last Taken Unknown] lansoprazole 30 mg capsule,delayed release 30 mg PO DAILY 05/27/23 [History Last Taken Unknown] methotrexate sodium 2.5 mg tablet 20 mg PO QWEEK 05/27/23 [History Last Taken U nknown] pantoprazole 40 mg tablet,delayed release 40 mg PO DAILY gerd 05/27/23 [History Last Taken Unknown] tenapanor 50 mg tablet (Ibsrela) 50 mg PO DAILY constipation 05/27/23 [History Last Taken Unknown] Allergy/AdvReac Type Severity Reaction Status Date / Time duloxetine [From Cymbalta] Allergy Intermediate Swelling Verified 06/01/23 17:42 erythromycin base Allergy Nausea/Vom/ Verified 06/01/23 17:42 Diarrhea pregabalin [From Lyrica] Allergy Swelling Verified 06/01/23 17:42 Family History Mother Diabetes Arthritis Heart disease CVA (cerebral vascular accident) Hypertension History of blood transfusion Father Pancreatic cancer Alcoholism Peptic ulcer disease Son Seizures Suicide attempt Surgical History H/O laminectomy History of appendectomy History of appendectomy History of breast biopsy History of colonoscopy (05/01/02) History of foot surgery History of spinal surgery Social History Smoking Status: Current some day smoker tobacco type: cigarettes alcohol intake: never substance use type: does not use what type of physical activity do you participate in: none seatbelt use: always do you feel safe at home: Yes ROS ROS Narrative 10 systems were reviewed with pertinent positives as noted in the HPI above. Physical Exam Const alert and no apparent distress Constitutional Narrative: Obese. General Appearance: cooperative HEENT normocephalic, head/scalp atraumatic and moist oral mucous membranes Eyes PERRL, EOMs intact bilaterally and conjunctivae normal Neck supple General: trachea midline Chest inspection of chest normal Resp normal respiratory effort Auscultation: rales bilateral Cardio regular rate and regular rhythm GI normal to inspection, nondistended, normoactive bowel sounds Extremity no clubbing, cyanosis or edema Skin no rashes or lesions noted Neuro oriented x3, CN's II-XII intact bilaterally and moves all extremities Psych cooperative and affect normal Lab / Micro Data 06/02/23 04:20 06/03/23 06:16 Labs: Laboratory Results - last 24 hr 06/03/23 06:16: Sodium 137, Potassium 4.0, Chloride 103, Carbon Dioxide 30.0, Anion Gap 4 L, BUN 29 H, Creatinine 0.92, Estim Creat Clear Calc 48.43, Est GFR (MDRD) Af Amer 77, Est GFR (MDRD) Non-Af 64, BUN/Creatinine Ratio 31.4 H, Glucose 112 H, Calcium 9.4 Micro: Microbiology 06/01/23 23:23 Mucosa - Nasopharyngeal Respiratory Panel (PCR) - Final Radiology Impression Echocardiogram 06/02/23 02:00 Interpretation Summary The estimated ejection fraction is 55-60 %. No previous study to compare Ordering Physician: Aron Pérez Referring Physician: Pedro Williamson Performed By: Elicia Alarcon, MAGGIECS, RVT Charges/Coding Visit Charges Inpatient E&M: 41798 Init Hosp L3
[2023-06-03 13:48] LABS: Rheumatoid Factor < 10.0 IU/mL (<15)
--- NOTE | 2023-06-03 14:13 | CASEMGMT ---
RN CM went to patient's room to attempt to do the initial assessment. Patient was not in room. Follow-up attempts to complete assessment will be made at another time. Tanika ORNELASN, RN, CM
--- NOTE | 2023-06-03 14:55 | CL.D_ITS ---
Patient Name: ISIDRA WARREN Study Date: 06/03/2023 Performing: Samson Chavez MD Ht: 64 inches 162.56 cm : 1950 Wt: 210.1 lbs 95.3 kg Age: 72 Gender: female BSA: 2 PROCEDURE(S) PERFORMED [id number])[facility] CLINICAL PROFILE AND INDICATIONS Indications: Suspected CAD Heart Failure: None Stress/Imaging Stress/Image Study Performed: No CAD Presentations: Unstable angina. CONCLUSIONS Dominant right coronary artery with eccentric 70 to 80% stenosis present. RECOMMENDATIONS Referred for immediate PCI DESCRIPTION OF PROCEDURE The patient arrived to the procedure lab. The risks and benefits of the procedure as well as a full description of our services here and current unavailability of surgical backup were fully explained to the patient and/or their significant other prior to the catheterization. The Timeout was completed, verifying the correct patient and procedure. The patient's procedural site was prepped and draped in the usual fashion. Local anesthetic was given subcutaneously to right radial region with Lidocaine 2%. Local anesthetic was given subcutaneously to right groin region with Lidocaine 2%. Using a modified Seldinger technique, arterial access was obtained via the right radial artery, a 6Fr sheath was inserted., arterial access was obtained via the right femoral artery, a 6Fr sheath was inserted. Right Coronary Artery selective angiography was then performed in multiple views using a 5 Fr. 4.0 [place] catheter. Left Coronary Artery selective angiography was performed in multiple views using a 5 Fr. JL3.5 catheter. CORONARY ANGIOGRAPHY DOMINANCE: Right Dominant LEFT HEART ASSESSMENT Left Ventricular Ejection Fraction: by Echo 55 % Normal LV wall motion Normal Left Ventricular systolic function LEFT MAIN: Mild calcification, Mild luminal irregularities LEFT ANTERIOR DESCENDING ARTERY: Mild luminal irregularities CIRCUMFLEX ARTERY: Mild luminal irregularities RIGHT CORONARY ARTERY: Dominant large right coronary artery with eccentric mid segment 70 to 80% stenosis noted and mild distal disease. COMPLICATIONS No Complications PROCEDURE MEDICATIONS Versed .5 mg IV Fentanyl 25 mcg IV Versed .5 mg IV Fentanyl 25 mcg IV Oxygen: 2 L/min via nasal cannula Heparin given IA 06/03/2023 14:31:20 SUMMARY OF HEMODYNAMIC DATA Time AIR REST ECG 14:17:45 AO 74/45 (59) SA 14:36:36 Signed By Samson Chavez MD On 06/03/2023 14:55:23 Samson Chavez MD
--- NOTE | 2023-06-03 15:26 | PN.HOSP_ITS ---
Reason for Visit Reason for Visit: Diagnoses Polyneuropathy, unspecified (06/01/23) Non-ST elevation (NSTEMI) myocardial infarction (06/01/23) Dyspnea, unspecified (06/01/23) Subjective Subjective Patient was seen and examined today, she underwent a cardiac catheterization which showed occlusive disease in the right coronary artery, she had a right coronary artery stent placed today. I talked briefly with pulmonary medicine about her care, they did not have much to offer in the way of medical treatment for her interstitial lung disease. She will be following up with them in the office as an outpatient. Objective Data Objective Data Vital Signs: Vital Signs Temp Pulse Resp BP Pulse Ox O2 Del Method O2 Flow Rate 97.4 F L 89 20 H 111/59 L 93 Nasal Cannula 4 06/03/23 11:04 06/03/23 12:55 06/03/23 12:55 06/03/23 11:04 06/03/23 11:04 06/03/23 11:04 06/03/23 11:04 Oxygen Flow Rate (L/min) 4 Oxygen Delivery Method Nasal Cannula Weight: 95.3 kg Body Mass Index (BMI) 36.0 Intake & Output: Intake and Output for Last 24 Hours 06/01/23 06/02/23 06/03/23 23:59 23:59 23:59 Intake Total 600 / 600 Balance 600 / 600 Lab / Micro Data 06/02/23 04:20 06/03/23 06:16 Labs: Laboratory Results - last 24 hr 06/03/23 06:16: Sodium 137, Potassium 4.0, Chloride 103, Carbon Dioxide 30.0, Anion Gap 4 L, BUN 29 H, Creatinine 0.92, Estim Creat Clear Calc 48.43, Est GFR (MDRD) Af Amer 77, Est GFR (MDRD) Non-Af 64, BUN/Creatinine Ratio 31.4 H, Glucose 112 H, Calcium 9.4, Rheumatoid Factor < 10.0 Micro: Microbiology 06/01/23 23:23 Mucosa - Nasopharyngeal Respiratory Panel (PCR) - Final 06/01/23 23:23 Mucosa - Nasopharyngeal Coronavirus COVID-19 PCR - Final 06/01/23 18:00 Nasal Secretion SARS-CoV-2 & FLU Antigen (Rapid) - Final Radiography Diagnostic Testing: Radiology Impression Echocardiogram 06/02/23 02:00 Interpretation Summary The estimated ejection fraction is 55-60 %. No previous study to compare Ordering Physician: Aron Pérez Referring Physician: Pedro Williamson Performed By: Elicia Alarcon, BRANDI, RVT Physical Exam Const alert, oriented x3, no apparent distress and average body habitus General Appearance: cooperative, well kempt and well developed Orientation / Consciousness: awake, oriented to person, oriented to place and oriented to time HEENT normocephalic, head/scalp atraumatic and moist oral mucous membranes Eyes PERRL, EOMs intact bilaterally and conjunctivae normal Neck supple, no JVD, thyroid normal and no carotid bruits General: trachea midline Resp normal respiratory effort, no retractions and no use of accessory muscles Auscultation: rales bilateral and diffuse; Negative for rhonchi or wheezes Cardio regular rate, regular rhythm, S1 normal heart sound, S2 normal heart sound, no murmurs, no rub and no gallops GI normal to inspection, nondistended, normoactive bowel sounds, soft to palpation, non-tender and non-distended Extremity no clubbing, cyanosis or edema Skin no rashes or lesions noted General Skin Exam: no breakdown Neuro oriented x3, CN's II-XII intact bilaterally, moves all extremities, no focal motor deficits and no sensory deficits noted Sensorium / Orientation: awake, alert, oriented to person, oriented to place and oriented to time Speech: speech normal Psych affect normal Assessment & Plan Assessment/Plan (1) Acute non-ST elevation myocardial infarction (NSTEMI): PLAN: Plan 1. Non-STEMI with occlusive coronary disease right coronary artery and nonocclusive coronary disease in the left main, left anterior descending artery, and the circumflex artery. Cardiology will adjust her medications, she will need to be on antiplatelet drug in addition to aspirin. #2 hypoxia secondary to undiagnosed chronic lung disease, favor chronic pulmonary fibrosis with a possible overlap of COPD-patient will remain on aerosol treatments, continue present treatment with bronchodilators and inhaled corticosteroids, patient most likely will need set up for home oxygen when she goes home, she will need to follow-up with pulmonary medicine as an outpatient. #3 pulmonary fibrosis/possible COPD-again patient will need to follow-up with pulmonary medicine as an outpatient #4 degenerative disc disease lumbar spine with chronic pain-this will make cardiac catheterization problematic tomorrow, cardiology is aware of this #5 psoriatic arthritis-patient is on methotrexate chronically, this will be continued here Total clinical time spent by myself addressing the patient's medical issues, reviewing all of her data, and collaborating with patient's care team: 35- minutes Charges/Coding Visit Charges Inpatient E&M: 26590 Subs Hosp L2
--- NOTE | 2023-06-03 15:32 | CASEMGMT ---
RN NOEL went to patient's room a second time to attempt to do the initial assessment. Patient was not in room. Follow-up attempts to complete assessment will be made at another time. Tanika ORNELASN, RN, CM
--- NOTE | 2023-06-03 15:57 | PCI.CARDCATH ---
PCI Cardiac Cath Report PCI Report: PCI cardiac cath report; 1. Access to right common femoral artery under fluoroscopic guidance With placement of 6 [place] sheath in the right common femoral artery 2. Successful PCI of mid RCA large dominant 80% stenosis With primary stenting using 4 x 18 mm drug-eluting stent/resolute [place] reduction of stenosis to 0% Maintenance of GRACIE III flow pre and postprocedure. 3. Selective right common femoral artery angiography and placement of Perclose to close the right common femoral artery arteriotomy site With no complication in the Sales Representative Facility Services. Preprocedure diagnosis: 71-year-old patient presented with symptoms of chest pain Evaluated with a series of cardiac markers EKG echocardiogram As a clinical diagnosis of non-ST elevation MO. Underwent cardiac catheterization by Dr. Chavez Angiographic findings reviewed, left main showed luminal irregularities which is mild Bifurcating into LAD and left circumflex Left anterior descending artery also showed mild luminal irregularities Luís left circumflex moderate in size RCA large With eccentric mid segment showing 70 to 80% stenosis noted and mild distal disease. Based on clinical presentation we will proceed with a PCI of the mid RCA Consent; Risk and benefit of procedure explained detail patient elected to proceed informed consent obtained Medication in the Sales Representative Facility Services; 1. Heparin she was given a total of 9000 minutes of heparin 2. Brilinta 180 mg prior to the PCI 3. Aspirin Interventional equipment used; 1. 6 Bol[place]ian JR4 guide catheter 2. 0.014 180 cm run-through extra floppy straight glide wire 3. 0.035 to 60 cm J exchange wire 4. Resolute [place] Rx JAIRO 4 x 18 mm. Procedure in detail; Under fluoroscopic guidance Access obtained from the right common femoral artery with placement of 6 [place] sheath in the right common femoral artery. Then we will proceed with the guide catheter which is a 6 [place] JR4 guide catheter advanced sending aorta cannulated the RCA Angiographic view obtained in ENGLISH and RAY views The new proceed with a guidewire advanced across the lesion across the lesion and placed in the distal part of the posterolateral branch The new proceed with primary stenting as it is a soft plaque there is no calcified lesion noted in the mid RCA We will proceed with 4 x 18 mm drug-eluting stent through the root Daniel Up to 1680 a.m. With reduction of stenosis to 0 Maintenance of GRACIE-3 flow. Patient tolerated procedure procedure very well stable hemodynamically. ACT level checked and selective right common femoral artery angiography obtained And Perclose used to close the right common femoral artery arteriotomy site with no complication in the Sales Representative Facility Services. Conclusion recommendation Patient with non-ST elevation MO with the symptoms of chest pain on presentation and shortness of breath. With successful PCI and stenting as described 1. Patient to continue on dual antiplatelet therapy/DAPT 90 mg twice daily Brilinta Low-dose aspirin 81 mg for 1 year and aspirin indefinitely #2 patient will be scheduled for cardiac rehab program at [facility] 3. Patient to follow-up with cardiology team for continuation of cardiac care. No complication in the Sales Representative Facility Services Charlene Miguel MD,FACC,[facility]
--- NOTE | 2023-06-03 16:04 | CASEMGMT ---
RN CM went to patient's room for 3rd attempt for initial assessment. Patient currently receiving EKG and RN CM unable to complete assessment at this time. RN CM will attempt assessment tomorrow. Tanika ORNELASN, RN, CM
[2023-06-03] MEDS: 0.9% Normal Saline 1,000 ML 75 ML IV (16:21)
[2023-06-03 16:32] LABS: BNP,B-Type NATRIURETIC PEPTIDE 155.8 pg/mL (0-100)
[2023-06-03] MEDS: 0.9% Saline Lock 10 ML Syringe IV (16:42)
--- NOTE | 2023-06-03 18:59 | NURSING ---
Reviewed charting with Mary Bergman RN
--- NOTE | 2023-06-03 21:05 | PCM.HOSP.N ---
Hospitalist Note Patient with oxygenation increase to 4L-6L, coughing since return from catheterization per RN report. CTPA without acute findings, chronic lung disease changes, neg COVID PCR and neg full resp panel, afebrile. After aerosols had increased cough, mild tachycardia. Adding cough syrup/throat spray, continue to monitor, continue to supplementation oxygen with wean as able.
[2023-06-03] MEDS: tiZANidine HCl 2 MG Tablet 4 MG PO (22:02)
[2023-06-03] MEDS: Enoxaparin 100 MG/ML Syringe 95 MG SC (22:02)
[2023-06-03] MEDS: Pantoprazole Sodium 40 MG Tablet PO (22:03)
[2023-06-03] MEDS: Phenol/Sodium Phenolate 180ML 5 SPRAY MUCOUS MEM (22:04)
[2023-06-04] VITALS (19 sets, daily range): BP systolic 102–128; BP diastolic 54–67; PULSE 61–119; RESP 16–20; TEMP 36.4–38.2; O2SAT 86–98; BMI 36.5
[2023-06-04 05:20] LABS: Hematocrit 37.9 % (37-47); Mean Corp Hgb Conc 31.7 g/dL (32-36); Mean Corpuscular Hgb 32.5 pg (27.0-32.0); Mean Corpuscular Volume 102.7 fL (81-99); Mean Platelet Vol. 10.3 fl (6.2-12.0); Platelet Count 307 K/mm3 (150-450); RBC Distribution Width CV 15.3 % (11.6-14.6); RBC Distribution Width SD 55.8 fl (35.1-43.9); Red Blood Count 3.69 M/mm3 (4.2-5.4)
[2023-06-04 05:51] LABS: ALB/GLOB Ratio 0.7 RATIO (0.9-2.4); AST(SGOT) 40 U/L (15-37); Alanine Aminotransfer ALT/SGPT 22 U/L (13-56); Albumin, Serum 2.6 g/dL (3.2-5.0); Alkaline Phosphatase 56 U/L (45-117); Anion Gap 6 (5-15); BUN 31 mg/dL (7-18); BUN/Creat Ratio 35.3 RATIO (10-20); Calcium,Total 8.6 mg/dL (8.5-10.1); Chloride 105 mmol/L (98-107); Creatinine, Serum 0.88 mg/dL (0.55-1.02); EST Glomerular Filtration Rate 68 mL/min (>60); Est Glom Filt Rate - Afr Amer 82 mL/min (>60); Estimated Creatinine Clearance 50.63 ml/min; Globulin 3.9 g/dL (2.2-4.2); Glucose 111 mg/dL (74-106); Protein, Total 6.5 g/dL (6.4-8.2); Sodium Level 139 mmol/L (136-145)
[2023-06-04] MEDS: Budesonide Respules 0.5 MG/2 ML AMPUL.NEB. INHALATION ×2 (06:55→18:55)
[2023-06-04] MEDS: Ipratropium/Albuterol Sulfate 3 ML AMPUL.NEB INHALATION ×3 (06:55→18:55)
[2023-06-04 09:08] LABS: ACT Activated Clotting Time 179 sec (74-137)
[2023-06-04] MEDS: Aspirin 81 MG TAB.CHEW PO (09:30)
[2023-06-04] MEDS: Folic Acid 1 MG Tablet PO (09:31)
[2023-06-04] MEDS: Losartan Potassium 50 MG Tablet PO (09:31)
[2023-06-04] MEDS: predniSONE 5 MG Tablet PO (09:31)
[2023-06-04] MEDS: Enoxaparin 100 MG/ML Syringe 95 MG SC ×2 (09:31→21:24)
[2023-06-04] MEDS: hydroCHLOROthiazide 25 MG Tablet PO (09:31)
[2023-06-04] MEDS: HYDROcodone Bitartrate/Apap 5/325 Tablet PO ×2 (09:34→21:24)
[2023-06-04] MEDS: Benzonatate 100 MG Capsule PO (09:34)
[2023-06-04] MEDS: Acetaminophen 325 MG Tablet 650 MG PO (09:49)
--- NOTE | 2023-06-04 10:00 | EKG12_ITS ---
Test Reason : AM EKG Blood Pressure : / mmHG Vent. Rate : 069 BPM Atrial Rate : 069 BPM P-R Int : 160 ms QRS Dur : 088 ms QT Int : 428 ms P-R-T Axes : 035 022 024 degrees QTc Int : 458 ms Normal sinus rhythm T wave abnormality, consider anterior ischemia Abnormal ECG When compared with ECG of 03-JUN-2023 16:00, MANUAL COMPARISON REQUIRED, DATA IS UNCONFIRMED Confirmed by DOMO UMAÑA, MELVI ([id number]), associate entertainment editor BRIDGETT CRESPO ([id number]) on 07/09/2023 1:57:00 PM Referred By: Confirmed By:MELVI OLIVEROS MD
--- NOTE | 2023-06-04 11:15 | CRPHASE1_ITS ---
Patient Communication Patient Information PHII Cardiac Rehab Discussed with Patient:: Yes Guide to Cardiac Rehab Given to Patient:: Yes Cardiac Rehab Facility Choice List Given to Patient:: Yes Communication to Cardiac Rehab Choice Program [facility] PHII:: Communication Given to [facility] Health Administration Teacher:: Charlene Miguel Phase II Cardiac Rehab:: Yes Sessions:: 36 sessions - 3 days/wk, 12 weeks Cardiac Rehabilitation Info Program Information Cardiac Rehabilitation Program Information: Cardiac Rehab The cardiac rehab team at [facility] consists of highly skilled exercise physiologists, nurses, respiratory therapists and physicians working together with you. Our purpose is to help you have a full recovery and achieve the goals you set for yourself. Over the years many of our patients have returned to activities they assumed they would never do again! We can help restore your confidence and motivation to make lifestyle changes that can have a significant impact on your health and quality of life! We can help answer questions and concerns you may have about exercise, lifestyle, medications, diet, stress and anxiety which are common following a hospitalization. WE monitor ECG and vital signs during exercise and discuss your progress with you and report to your physician(s). Cardiac Rehab is proven to help reduce readmissions, improve functional capacity and lower recurrence of problems with your heart. Our Cardiac Rehab program is Certified by the [place] [employer]-Vascular [employer] Pulmonary [employer] (AACVPR) and Accredited by the [place] [employer] through our [facility]. You can contact us at . We invite you to call us with your questions or to get started in our program. If you have other questions or concerns be sure to ask your physician/provider during your follow-up visit. WE look forward to seeing you!
--- NOTE | 2023-06-04 11:16 | CRPH1.INSTRU ---
General Education Discussed with Patient CAD and cardiac anatomy and function:: Patient communicates acknowledgment Explanation of diagnoses and procedures:: Patient communicates acknowledgment Sign/Symptoms of NC:: Patient communicates acknowledgment Antiplatelet therapy: Patient communicates acknowledgment Proper use of NTG-SL: Patient communicates acknowledgment Emergency procedures and activation of EMS: Patient communicates acknowledgment Compliance of all prescribed medications: Patient communicates acknowledgment Smoking Risk Factors Patient Nicotine/Smoking Risk Factors Are:: Non-smoker Dyslipidemia Risk Factors Patient Dyslipidemia Risk Factors Are:: Total Cholesterol, Triglycerides, HDL and LDL Recommendations Recommendations Include:: Lipid profile not available, Reviewed NCEP/ATP guidelines and Therapeutic Lifestyle Change dietary guidelines Response Code Dyslipidemia Response Code:: Patient communicates acknowledgment Overweight/Obesity Risk Factors Patient Overweight/Obesity Risk Factors Are:: Obesity - > or = 30 Recommendations Recommendations Include:: Weight loss of 5-10%, Reduced calorie diet and Exercise 5-7 times/week Response Code Overweight/Obesity:: Patient communicates acknowledgment Hypertension Recommendations Recommendations Include:: Maintain BP <130/85, DASH dietary guidelines, Decrease/maintain normal body weight and Moderation of ETOH Response Code Hypertension:: Patient communicates acknowledgment Diabetes Risk Factors Patient Diabetes Risk Factors Are:: No documented hx of diabetes Metabolic Syndrome Risk Factors Patient Metabolic Syndrome Risk Factors Are [3 of 5]:: Fasting blood sugar > 100 mg/dL, Waist circumference > 35 [female] or 40 [male], High triglyceride >150, Hypertension and Low HDL <40 [male] or < 50 [female] Recommendations Recommendations Include:: Reinforce compliance to risk factor modifications and Encouraged follow-up with Primary Care Physician Response Code Metabolic Syndrome Response Code:: Patient communicates acknowledgment Sedentary Risk Factors Patient Sedentary Risk Factors Are:: Lack of regular exercise Recommendations Recommendations Include:: Aerobic exercise 5-7 times/week for 20-30 minutes continuously, Benefits of regular exercise, Discussed home walking program and Monitored Outpatient Cardiac Rehab Response Code Sedentary Response Code:: Patient communicates acknowledgment Stress Recommendations Recommendations Include:: Identification of stressors, and assessment of coping skills and Stress management techniques Response Code Stress Response Code:: Patient communicates acknowledgment
--- NOTE | 2023-06-04 11:40 | CASEMGMT ---
LAUREN COHEN Face to Face with patient for initial transition planning/care coordination assessment, two of her sons are also at the bedside (the one son patient lives with). LAUREN COHEN introduced self and role at [facility]. Patient lying in bed, alert and oriented. Patient willing to participate in assessment and is able to answer all questions appropriately.? Care providers, pharmacy, and demographics verified. Patient states that she feels she is weaker than she was yesterday and is not able to get up and walk at all today. Patient states she feels she will likely need to go to a SNF at this point and does not want to go to TCU. Patient states he has no further needs or concerns at this time. CM to follow for discharge planning needs that may arise. PCP: Pedro Williamson Specialists:Patient sees Pain Management Dr. Yung in [place] (Patient unsure of spelling); [facility] in [place] (patient unsure of name) Preferred Pharmacy:[facility] Insurance:[facility] Prescription Benefit:?Yes Living Will/HPOA:Yes/Yes: HCPOA is her son, Drake Gudino LNOK:Sons Drake and Edgar Living Arrangements:Patient states she lives with her son, Edgar, in a one story apartment. [facility] with one step to enter. Patient states she was able to ambulate this step fine before this admission, but does not know how it will be for her now. Patient states that previous to this admission she was doing her own bathing, dressing, and medication management. She states she did her own cooking but with great difficulty. Patient states her son does the cleaning. Patient reports she used the walker at night to get to the bathroom. Transportation:Patient states she can drive, but does not currently have a vehicle (her son states he does not drive d/t having epilepsy).Patient states she uses the [facility] van and other resources through [employer]. She reports that if it is an urgent matter she has a friend she calls to drive her, or uses the squad. DME/HHC:Patient states she has a shower chair, grab bars, raised toilet seat, cane, rollator, walker (uses at HS), electric W/C (son states this is in the garage but it does work), a pulse ox (they ordered one and should be arriving soon).Patient states she has a glucometer but the batteries and she needs more testing supplies and has been unable to get them through her insurance company d/t a change in insurance plan.Patient is interested in a script for a new glucometer/supplies. Patient states she does not have any oxygen at home. Patient states if she does at some point need a DME company, she prefers [employer]. She states she has been to [facility] TCU in the past. Denies previous HHC. Disposition Plan: Patient feels that at this point she needs to go to a SNF. She does not want to go to [facility] TCU. SW informed and will print out SNF list to provide to patient. Will follow therapy to see how patient does today. Tanika ORNELASN, RN, CM
--- NOTE | 2023-06-04 11:59 | CASEMGMT ---
Discharge Planning A list of SNF providers including quality and resource use data and consistent with the patient?s preferred geographic region, medical needs, and insurance network was created in [facility] Guide. This list was provided to the RN CM. Tomasa Johns, Discharge Planning Asst.
[2023-06-04] MEDS: Metoprolol Tartrate 25 MG Tablet PO ×2 (12:01→21:23)
--- NOTE | 2023-06-04 12:45 | PN.CARD_ITS ---
Subjective Subjective Pt seen and examined. Pt does not have any CP. She does still have a cough and is requiring O2. She is feeling cold today. She does not have any swelling. Objective Data Vital Signs: Vital Signs Temp Pulse Resp BP Pulse Ox O2 Del Method O2 Flow Rate 97.6 F L 99 18 118/67 96 High Flow 7 06/04/23 12:05 06/04/23 12:05 06/04/23 12:05 06/04/23 12:05 06/04/23 12:05 06/04/23 12:05 06/04/23 12:05 Oxygen Flow Rate (L/min) 7 Oxygen Delivery Method High Flow Weight: 212 lb 15.465 oz Body Mass Index (BMI) 36.5 Intake & Output: Intake and Output for Last 24 Hours 06/02/23 06/03/23 06/04/23 23:59 23:59 23:59 Intake Total 600 / 600 360 / 360 1200 / 1200 Balance 600 / 600 360 / 360 1200 / 1200 Lab / Micro Data 06/04/23 05:05 06/04/23 05:05 Labs: Laboratory Results - last 24 hr 06/01/23 17:50: B-Natriuretic Peptide 155.8 H 06/03/23 06:16: Rheumatoid Factor < 10.0 06/03/23 15:13: Activated Clotting Time 179 H 06/04/23 05:05: WBC 7.0, RBC 3.69 L, Hgb 12.0, Hct 37.9, MCV 102.7 H, MCH 32.5 H , MCHC 31.7 L, RDW Std Deviation 55.8 H, RDW Coeff of Sonya 15.3 H, Plt Count 307, MPV 10.3, Sodium 139, Potassium 4.0, Chloride 105, Carbon Dioxide 28.0, Anion Gap 6, BUN 31 H, Creatinine 0.88, Estim Creat Clear Calc 50.63, Est GFR (MDRD) Af Amer 82, Est GFR (MDRD) Non-Af 68, BUN/Creatinine Ratio 35.3 H, Glucose 111 H , Calcium 8.6, Total Bilirubin 0.70, AST 40 H, ALT 22, Alkaline Phosphatase 56, Total Protein 6.5, Albumin 2.6 L, Globulin 3.9, Albumin/Globulin Ratio 0.7 L Micro: Microbiology 06/01/23 18:10 Blood Culture (Wb) #2 - Anticubital Right Blood Culture - Preliminary No growth in 48 hours. 06/01/23 18:10 Blood Culture (Wb) - Venous Blood Culture - Preliminary No growth in 48 hours. Cardiology Labs/Tests 06/01/23 17:50: B-Natriuretic Peptide 155.8 H 06/04/23 05:05: WBC 7.0, RBC 3.69 L, Hgb 12.0, Hct 37.9, MCV 102.7 H, MCH 32.5 H , MCHC 31.7 L, Plt Count 307, MPV 10.3, Sodium 139, Potassium 4.0, Chloride 105, Carbon Dioxide 28.0, Anion Gap 6, BUN 31 H, Creatinine 0.88, Est GFR (MDRD) Af Amer 82, Est GFR (MDRD) Non-Af 68, BUN/Creatinine Ratio 35.3 H, Glucose 111 H, C alcium 8.6, Total Bilirubin 0.70 Physical Exam Const alert, oriented x3 and no apparent distress General Appearance: cooperative and well developed Orientation / Consciousness: awake, oriented to person, oriented to place and oriented to time HEENT normocephalic, head/scalp atraumatic and moist oral mucous membranes Eyes PERRL, EOMs intact bilaterally and conjunctivae normal Neck supple, no JVD, thyroid normal and no carotid bruits General: trachea midline Resp normal respiratory effort, no retractions and no use of accessory muscles Resp Narrative: Patient has inspiratory rales t/o, On O2 Auscultation: rales bilateral; Negative for rhonchi or wheezes Cardio regular rate, regular rhythm, S1 normal heart sound, S2 normal heart sound, no murmurs, no rub and no gallops GI normal to inspection, nondistended, normoactive bowel sounds, soft to palpation, non-tender and non-distended Extremity no clubbing, cyanosis or edema Skin no rashes or lesions noted General Skin Exam: no breakdown Neuro oriented x3, CN's II-XII intact bilaterally, moves all extremities, no focal motor deficits and no sensory deficits noted Sensorium / Orientation: awake, alert, oriented to person, oriented to place and oriented to time Speech: speech normal Psych affect normal Assessment & Plan Assessment/Plan (1) Acute non-ST elevation myocardial infarction (NSTEMI): (2) Acute dyspnea: (3) Neuropathy: (4) High blood pressure: PLAN: Plan * Troponins trended 282/259/237/171, pt does not have any symptoms of angina. EF is preserved. She did undergo a heart cath yesterday where she had stenting to her RCA. She was started on Brilinta. Would like to maximize medication by starting her on Metoprolol. She will continue with her Cozaar, atorvastatin and ASA. * Will refer to tp cardiac rehab. * Pt will follow up with us in the office. * BP is controlled on current home medications. I independently reviewed all the current evaluation of this patient in the hospital including the EKG, imaging studies, cardiac catheterization which revealed the mid RCA lesion significant at least like 80% patient underwent successful PCI using drug-eluting stent to the RCA with excellent result No symptoms of chest pain reported And she been stable hemodynamically in the [facility]. Patient will continue on dual antiplatelet therapy/DAPT Brilinta 90 mg twice daily in addition to low-dose aspirin 81 mg Also patient is scheduled for stage I cardiac rehab program at [facility] Patient will follow-up with cardiology team for continuation of cardiac care. I concur with cardiac care plan as per midlevel note and documentation. Charlene Miguel MD,FACC,[facility] Charges/Coding Visit Charges Inpatient E&M: 51964 Subs Hosp L3
--- NOTE | 2023-06-04 12:52 | PN.HOSP_ITS ---
Reason for Visit Reason for Visit: Diagnoses Polyneuropathy, unspecified (06/01/23) Essential (primary) hypertension (06/01/23) Non-ST elevation (NSTEMI) myocardial infarction (06/01/23) Dyspnea, unspecified (06/01/23) Objective Data Objective Data Vital Signs: Vital Signs Temp Pulse Resp BP Pulse Ox O2 Del Method O2 Flow Rate 97.6 F L 99 18 118/67 96 High Flow 7 06/04/23 12:05 06/04/23 12:05 06/04/23 12:05 06/04/23 12:05 06/04/23 12:05 06/04/23 12:05 06/04/23 12:05 Oxygen Flow Rate (L/min) 7 Oxygen Delivery Method High Flow Weight: 212 lb 15.465 oz Body Mass Index (BMI) 36.5 Intake & Output: Intake and Output for Last 24 Hours 06/02/23 06/03/23 06/04/23 23:59 23:59 23:59 Intake Total 600 / 600 360 / 360 1200 / 1200 Balance 600 / 600 360 / 360 1200 / 1200 Lab / Micro Data 06/04/23 05:05 06/04/23 05:05 Labs: Laboratory Results - last 24 hr 06/01/23 17:50: B-Natriuretic Peptide 155.8 H 06/03/23 06:16: Rheumatoid Factor < 10.0 06/03/23 15:13: Activated Clotting Time 179 H 06/04/23 05:05: WBC 7.0, RBC 3.69 L, Hgb 12.0, Hct 37.9, MCV 102.7 H, MCH 32.5 H , MCHC 31.7 L, RDW Std Deviation 55.8 H, RDW Coeff of Sonya 15.3 H, Plt Count 307, MPV 10.3, Sodium 139, Potassium 4.0, Chloride 105, Carbon Dioxide 28.0, Anion Gap 6, BUN 31 H, Creatinine 0.88, Estim Creat Clear Calc 50.63, Est GFR (MDRD) Af Amer 82, Est GFR (MDRD) Non-Af 68, BUN/Creatinine Ratio 35.3 H, Glucose 111 H , Calcium 8.6, Total Bilirubin 0.70, AST 40 H, ALT 22, Alkaline Phosphatase 56, Total Protein 6.5, Albumin 2.6 L, Globulin 3.9, Albumin/Globulin Ratio 0.7 L Micro: Microbiology 06/01/23 18:10 Blood Culture (Wb) #2 - Anticubital Right Blood Culture - Preliminary No growth in 48 hours. 06/01/23 18:10 Blood Culture (Wb) - Venous Blood Culture - Preliminary No growth in 48 hours. 06/01/23 23:23 Mucosa - Nasopharyngeal Respiratory Panel (PCR) - Final 06/01/23 23:23 Mucosa - Nasopharyngeal Coronavirus COVID-19 PCR - Final 06/01/23 18:00 Nasal Secretion SARS-CoV-2 & FLU Antigen (Rapid) - Final Physical Exam Narrative Seen and examined. Patient has paroxysms of cough and gets short of breath, hypoxic on 10 L high flow oxygen.She was also tachycardic heart rate about 120s. Afebrile. She has seen ENT doctor in last as she had nose pain and epistaxis. She complained of URI symptoms including nasal/sinus congestion and COUGH comes from her throat along with sputum production. Physical exam General: Alert, Oriented x3, Cooperative, afebrile but feeling cold. HEENT: Atraumatic, PERRLA, EOMI, Normocephalic Oral: No Gingival or Mucosal Lesions/ Ulcerations Neck: Supple, No JVD, Negative Carotid Bruits Lungs: Air entry diminished in bilateral lung bases. No crepitation/rhonchi. Mild tachypnea, high flow oxygen Cardiovascular: Sinus tachycardia, Normal S1, Normal S2, No murmurs Abdomen: Bowel Sounds Present, Soft, Non Tender, Non-Distended : No renal angle tenderness. No suprapubic tenderness. Extremities: No edema, Capillary Refill Less than 3 Seconds Skin: No rashes, No breakdown Musculoskeletal: No Tenderness to Palpation of Joints or Extremities Neurological: Cranial nerves II-XII grossly intact, DTR 2+/4. No acute focal neurological deficit. Psych/Mental Status: Flat affect. Const alert, oriented x3, no apparent distress and average body habitus General Appearance: cooperative, well kempt and well developed Orientation / Consciousness: awake, oriented to person, oriented to place and oriented to time HEENT normocephalic, head/scalp atraumatic and moist oral mucous membranes Eyes PERRL, EOMs intact bilaterally and conjunctivae normal Neck supple, no JVD, thyroid normal and no carotid bruits General: trachea midline Resp normal respiratory effort, no retractions and no use of accessory muscles Resp Narrative: Patient has inspiratory rales over all lung mi bilaterally Auscultation: rales bilateral and diffuse; Negative for rhonchi or wheezes Cardio regular rate, regular rhythm, S1 normal heart sound, S2 normal heart sound, no murmurs, no rub and no gallops GI normal to inspection, nondistended, normoactive bowel sounds, soft to palpation, non-tender and non-distended Extremity no clubbing, cyanosis or edema Skin no rashes or lesions noted General Skin Exam: no breakdown Neuro oriented x3, CN's II-XII intact bilaterally, moves all extremities, no focal motor deficits and no sensory deficits noted Sensorium / Orientation: awake, alert, oriented to person, oriented to place and oriented to time Speech: speech normal Psych affect normal Assessment & Plan Assessment/Plan (1) Acute hypoxemic respiratory failure: (2) Acute non-ST elevation myocardial infarction (NSTEMI): PLAN: Plan 1. Non-STEMI with eccentric mid segment 70 to 80% right coronary artery and nonocclusive coronary disease in the left main, left anterior descending artery, and the circumflex artery. On medical management. Patient on aspirin, Brilinta, metoprolol 25 mg twice daily, losartan 50 mg daily, HCTZ 25 mg daily and atorvastatin 40 mg daily. #2 hypoxia secondary to undiagnosed chronic lung disease, favor chronic pulmonary fibrosis with a possible overlap of COPD-patient will remain on aerosol treatments, continue present treatment with bronchodilators and inhaled corticosteroids, patient most likely will need set up for home oxygen when she goes home, she will need to follow-up with pulmonary medicine as an outpatient. #3 pulmonary fibrosis/possible COPD/interstitial lung disease-patient has paroxysms of cough that makes her very short of breath and tachypneic. His central cough is not predominantly from URI but respiratory panel, COVID-19 PCR are negative. Patient seen by pulm neurology. CTA chest shows bibasilar subpleural interstitial septal thickening and groundglass opacities representing evolving interstitial lung disease. Autoimmune panel was ordered and follow-up with pulmonary medicine after 2 weeks to get baseline PFT. Incentive spirometry. Diuresis as per tolerated. 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 #5 psoriatic arthritis-patient is on methotrexate chronically, this will be continued here. 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 Charges/Coding Visit Charges Inpatient E&M: 07490 Subs Hosp L2
[2023-06-04] MEDS: Benzonatate 100 MG Capsule 200 MG PO ×2 (13:50→21:29)
--- NOTE | 2023-06-04 14:11 | CASEMGMT ---
Patient has a Healthcare Power of Production Operations Inspector and a Healthcare Living Will. Patient is aware they are not on file at [facility] and to bring in a copy when able. Flores Coats GUT DROPPER [place]
--- NOTE | 2023-06-04 14:13 | CASEMGMT ---
Per RN CM patient feels she will likely need to go to a group home facility at discharge. SW met with patient. Introduced self and role at [facility]. Patient confirmed she thinks she may need a SNF. SW provided patient with a list of group home facility providers including quality and resource use data and consistent with patient?s preferred geographic region, medical needs, and insurance network were provided from the [facility]Port Guide. SW let patient know she will need to pick at least 3 facilities she would be okay with and SW will check on availability. Flores Coats SPEECH THERAPY ASSISTANT [place]
--- NOTE | 2023-06-04 15:51 | CASEMGMT ---
PARDEEP met with patient to see if she had a chance to review her list of long-term facilities. Patient said her two choices would be [facility] and [facility]. Either one patient said would be fine. Patient said she is not 100% sure she is going to go to a SNF. PARDEEP told patient PARDEEP and RN NOEL will continue to follow and if she feels she can go home at d/c other arrangements can be made. PARDEEP asked [facility] d/c maintenance planning clerk to please send referrals to [facility] and [facility]. Flores Coats POULTRY SERVICE TECHNICIAN [place]
--- NOTE | 2023-06-04 16:02 | CASEMGMT ---
Discharge Planning Referral sent to [place] and [facility] via [facility]. Tomasa Johns, Discharge Planning Asst.
--- NOTE | 2023-06-04 18:55 | CPS ---
Decreased O2 liter flow to 4 lpm
[2023-06-04] MEDS: TICAGRELOR 90 MG TABLET PO (21:23)
[2023-06-04] MEDS: Pantoprazole Sodium 40 MG Tablet PO (21:25)
[2023-06-04] MEDS: tiZANidine HCl 2 MG Tablet 4 MG PO (21:27)
[2023-06-04] MEDS: Atorvastatin Calcium 40 MG Tablet PO (21:31)
[2023-06-05] VITALS (31 sets, daily range): BP systolic 79–163; BP diastolic 42–66; PULSE 56–103; RESP 18–33; TEMP 36.4–37.1; O2SAT 61–100; BMI 36.7
[2023-06-05] MEDS: guaiFENesin/Codeine 5 ML UDC PO (01:12)
[2023-06-05] MEDS: Ipratropium/Albuterol Sulfate 3 ML AMPUL.NEB INHALATION ×3 (01:55→20:00)
[2023-06-05] MEDS: Acetaminophen 325 MG Tablet 650 MG PO (02:41)
[2023-06-05] MEDS: HYDROcodone Bitartrate/Apap 5/325 Tablet PO ×3 (02:42→20:43)
[2023-06-05] MEDS: Benzonatate 100 MG Capsule 200 MG PO ×3 (05:35→20:44)
[2023-06-05] MEDS: Budesonide Respules 0.5 MG/2 ML AMPUL.NEB. INHALATION ×2 (07:23→20:00)
--- NOTE | 2023-06-05 07:35 | CPS ---
Patient's sats dropped to around 85%, patient boosted in bed and aerosol given. O2 flow increased to 8lpm til sats reached mid 90's, O2 decreased to 6lpm after.
[2023-06-05] MEDS: TICAGRELOR 90 MG TABLET PO ×2 (08:51→20:43)
[2023-06-05] MEDS: Folic Acid 1 MG Tablet PO (08:51)
[2023-06-05] MEDS: Aspirin 81 MG TAB.CHEW PO (08:51)
[2023-06-05] MEDS: predniSONE 5 MG Tablet PO (08:52)
--- NOTE | 2023-06-05 08:53 | PN.HOSP_ITS ---
Reason for Visit Reason for Visit: Diagnoses Polyneuropathy, unspecified (06/01/23) Essential (primary) hypertension (06/01/23) Non-ST elevation (NSTEMI) myocardial infarction (06/01/23) Acute respiratory failure with hypoxia (06/01/23) Dyspnea, unspecified (06/01/23) Objective Data Objective Data Vital Signs: Vital Signs Temp Pulse Resp BP Pulse Ox O2 Del Method O2 Flow Rate 98 F 72 18 104/51 L 94 Nasal Cannula 6 06/05/23 08:45 06/05/23 08:45 06/05/23 08:45 06/05/23 08:45 06/05/23 08:45 06/05/23 08:45 06/05/23 08:45 Oxygen Flow Rate (L/min) 6 Oxygen Delivery Method Nasal Cannula Weight: 214 lb 1.102 oz Body Mass Index (BMI) 36.7 Intake & Output: Intake and Output for Last 24 Hours 06/03/23 06/04/23 06/05/23 23:59 23:59 23:59 Intake Total 360 / 360 2100 / 2100 550 / 550 Balance 360 / 360 2100 / 2100 550 / 550 Lab / Micro Data 06/04/23 05:05 06/04/23 05:05 Labs: Laboratory Results - last 24 hr 06/03/23 15:13: Activated Clotting Time 179 H Micro: Microbiology 06/01/23 18:10 Blood Culture (Wb) #2 - Anticubital Right Blood Culture - Preliminary No growth in 48 hours. 06/01/23 18:10 Blood Culture (Wb) - Venous Blood Culture - Preliminary No growth in 48 hours. 06/01/23 23:23 Mucosa - Nasopharyngeal Respiratory Panel (PCR) - Final 06/01/23 23:23 Mucosa - Nasopharyngeal Coronavirus COVID-19 PCR - Final 06/01/23 18:00 Nasal Secretion SARS-CoV-2 & FLU Antigen (Rapid) - Final Physical Exam Narrative Seen and examined. Patient has paroxysms of cough and gets short of breath, hypoxic currently on 6 L of oxygen..She was also tachycardic heart rate especially during cough. She feels like mucus in her nasal sinuses She has seen ENT doctor in last as she had nose pain and epistaxis. She complained of URI symptoms including nasal/sinus congestion and COUGH comes from her throat along with sputum production. Physical exam General: Alert, Oriented x3, Cooperative, afebrile HEENT: Atraumatic, PERRLA, EOMI, Normocephalic Oral: No Gingival or Mucosal Lesions/ Ulcerations Neck: Supple, No JVD, Negative Carotid Bruits Lungs: Air entry diminished in bilateral lung bases. Bilateral wheezing and rhonchi. Mild hypoxia during cough Cardiovascular: Sinus tachycardia, Normal S1, Normal S2, respiratory Abdomen: Bowel Sounds Present, Soft, Non Tender, Non-Distended : No renal angle tenderness. No suprapubic tenderness. Extremities: No edema, Capillary Refill Less than 3 Seconds Skin: No rashes, No breakdown Musculoskeletal: No Tenderness to Palpation of Joints or Extremities Neurological: Cranial nerves II-XII grossly intact, DTR 2+/4. No acute focal neurological deficit. Psych/Mental Status: Flat affect. Const alert, oriented x3, no apparent distress and average body habitus General Appearance: cooperative, well kempt and well developed Orientation / Consciousness: awake, oriented to person, oriented to place and oriented to time HEENT normocephalic, head/scalp atraumatic and moist oral mucous membranes Eyes PERRL, EOMs intact bilaterally and conjunctivae normal Neck supple, no JVD, thyroid normal and no carotid bruits General: trachea midline Resp normal respiratory effort, no retractions and no use of accessory muscles Resp Narrative: Patient has inspiratory rales over all lung mi bilaterally Auscultation: rales bilateral and diffuse; Negative for rhonchi or wheezes Cardio regular rate, regular rhythm, S1 normal heart sound, S2 normal heart sound, no murmurs, no rub and no gallops GI normal to inspection, nondistended, normoactive bowel sounds, soft to palpation, non-tender and non-distended Extremity no clubbing, cyanosis or edema Skin no rashes or lesions noted General Skin Exam: no breakdown Neuro oriented x3, CN's II-XII intact bilaterally, moves all extremities, no focal motor deficits and no sensory deficits noted Sensorium / Orientation: awake, alert, oriented to person, oriented to place and oriented to time Speech: speech normal Psych affect normal Assessment & Plan Assessment/Plan (1) Acute hypoxemic respiratory failure: (2) Acute non-ST elevation myocardial infarction (NSTEMI): PLAN: Plan 1. Non-STEMI with eccentric mid segment 70 to 80% right coronary artery and nonocclusive coronary disease in the left main, left anterior descending artery, and the circumflex artery. On medical management. Patient on aspirin, Brilinta, metoprolol 25 mg twice daily, losartan 50 mg daily, HCTZ 25 mg daily and atorvastatin 40 mg daily. #2 hypoxia secondary to undiagnosed chronic lung disease, favor chronic pulmonary fibrosis with a possible overlap of COPD with paroxysms of cough- patient will remain on aerosol treatments, continue present treatment with bronchodilators and inhaled corticosteroids, patient most likely will need set up for home oxygen when she goes home, she will need to follow-up with pulmonary medicine as an outpatient. 06/05: Yesterday patient was started on codeine/guaifenesin but patient did not take it, stated gets itching with codeine but she is on hydrocodone scheduled and as needed and she is on scheduled prednisone and IV Solu-Medrol as needed. Advised aggressive incentive spirometry, Mucinex DM as decongestant. She is desaturating even on 10 L of mass therefore advised Airvo. Earlier commercial specialist was consulted #3 pulmonary fibrosis/possible COPD/interstitial lung disease-patient has paroxysms of cough that makes her very short of breath and tachypneic. His central cough is not predominantly from URI but respiratory panel, COVID-19 PCR are negative. Patient seen by pulm neurology. CTA chest shows bibasilar subpleural interstitial septal thickening and groundglass opacities representing evolving interstitial lung disease. Autoimmune panel was ordered and follow-up with pulmonary medicine after 2 weeks to get baseline PFT. Incentive spirometry. Diuresis as per tolerated. 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 #5 psoriatic arthritis-patient is on methotrexate chronically, this will be continued here. Patient follows outside community education coordinator for psoriatic arthritis. Charges/Coding Visit Charges Inpatient E&M: 50414 Subs Hosp L2
[2023-06-05] MEDS: Losartan Potassium 50 MG Tablet PO (08:54)
[2023-06-05] MEDS: hydroCHLOROthiazide 25 MG Tablet PO (08:54)
[2023-06-05] MEDS: Enoxaparin 100 MG/ML Syringe 95 MG SC ×2 (08:56→20:44)
--- NOTE | 2023-06-05 10:00 | EKG12_ITS ---
Test Reason : AM EKG Blood Pressure : / mmHG Vent. Rate : 061 BPM Atrial Rate : 061 BPM P-R Int : 164 ms QRS Dur : 082 ms QT Int : 422 ms P-R-T Axes : 025 038 019 degrees QTc Int : 424 ms Normal sinus rhythm Nonspecific T wave abnormality Abnormal ECG When compared with ECG of 04-JUN-2023 15:34, MANUAL COMPARISON REQUIRED, DATA IS UNCONFIRMED Confirmed by DOMO UMAÑA, MELVI ([id number]), makeup editor BRIDGETT CRESPO ([id number]) on 07/09/2023 1:56:21 PM Referred By: Elisa Confirmed By:MELVI OLIVEROS MD
[2023-06-05] MEDS: guaiFENesin/Codeine 5 ML UDC 10 ML PO ×3 (10:29→17:50)
--- NOTE | 2023-06-05 11:02 | CASEMGMT ---
Both [place] and [facility] have accepted patient. Patient is doing worse in regards to her respiratory status. SW will check with patient to let her know and to see which facility she would prefer. Flores MORTENSEN
[2023-06-05 13:07] LABS: ANTINUCLEAR ANTIBODIES DIRECT Negative (Negative)
[2023-06-05 14:09] LABS: CCP IgG Antibodies 3 units (0-19); Cytoplasmic Ab (C-ANCA) <1:20 titer (Neg:<1:20); Perinuclear Ab (P-ANCA) <1:20 titer (Neg:<1:20)
[2023-06-05] MEDS: BUPRENORPHINE 15 MCG/HR PATCH 1 EACH TD (16:32)
[2023-06-05] MEDS: Metoprolol Tartrate 25 MG Tablet PO (20:43)
[2023-06-05] MEDS: Atorvastatin Calcium 40 MG Tablet PO (20:43)
[2023-06-05] MEDS: tiZANidine HCl 2 MG Tablet 4 MG PO (20:44)
[2023-06-05] MEDS: Pantoprazole Sodium 40 MG Tablet PO (20:44)
[2023-06-06] VITALS (20 sets, daily range): BP systolic 83–119; BP diastolic 43–87; PULSE 58–86; RESP 16–33; TEMP 36.1–36.7; O2SAT 83–100; BMI 36.4
[2023-06-06] MEDS: Benzonatate 100 MG Capsule 200 MG PO ×3 (04:59→22:51)
[2023-06-06] MEDS: guaiFENesin/Codeine 5 ML UDC 10 ML PO ×4 (04:59→23:10)
[2023-06-06] MEDS: Ipratropium/Albuterol Sulfate 3 ML AMPUL.NEB INHALATION ×4 (07:12→19:43)
[2023-06-06] MEDS: Budesonide Respules 0.5 MG/2 ML AMPUL.NEB. INHALATION (07:12)
--- NOTE | 2023-06-06 08:20 | PCM.PN.HOSP ---
Reason for Visit Reason for Visit: Diagnoses Polyneuropathy, unspecified (06/01/23) Essential (primary) hypertension (06/01/23) Non-ST elevation (NSTEMI) myocardial infarction (06/01/23) Acute respiratory failure with hypoxia (06/01/23) Dyspnea, unspecified (06/01/23) Subjective Subjective Acute hypoxic respiratory failure. Objective Data Objective Data Vital Signs: Vital Signs Temp Pulse Resp BP Pulse Ox O2 Del Method O2 Flow Rate 97.1 F L 59 L 27 H 94/43 L 100 Airvo 45 06/06/23 08:00 06/06/23 08:00 06/06/23 08:00 06/06/23 08:00 06/06/23 08:00 06/06/23 08:00 06/06/23 08:00 FiO2 87 06/06/23 08:00 Oxygen Flow Rate (L/min) 45 Oxygen Delivery Method Airvo Weight: 212 lb 4.882 oz Body Mass Index (BMI) 36.4 Intake & Output: Intake and Output for Last 24 Hours 06/04/23 06/05/23 06/06/23 23:59 23:59 23:59 Intake Total 2099 / 2100 1140 / 1140 100 / 100 Output Total 800 / 800 Balance 2099 1140 / 340 -700 / -700 Lab / Micro Data 06/06/23 09:00 06/06/23 09:00 Labs: Laboratory Results - last 24 hr 06/03/23 06:16: Cycl Citrul Peptide IgG 3, APRIL Screen Negative, c-ANCA Antibody <1:20, Atypical p-ANCA <1:20, p-ANCA Antibody <1:20 Micro: Microbiology 06/05/23 14:05 Interface Orders Group A Streptococcus Rapid Screen - Preliminary 06/01/23 18:10 Blood Culture (Wb) #2 - Anticubital Right Blood Culture - Preliminary No growth in 48 hours. 06/01/23 18:10 Blood Culture (Wb) - Venous Blood Culture - Preliminary No growth in 48 hours. 06/01/23 23:23 Mucosa - Nasopharyngeal Respiratory Panel (PCR) - Final 06/01/23 23:23 Mucosa - Nasopharyngeal Coronavirus COVID-19 PCR - Final 06/01/23 18:00 Nasal Secretion SARS-CoV-2 & FLU Antigen (Rapid) - Final Physical Exam Narrative Seen and examined. Yesterday patient got very short of breathAnd hypoxic even on maximum 10 L of high flow oxygen therefore put on Airvo. Patient was congested upper airway and throat. Patient also sinus tachycardic and tachypneic. She has been refusing Mucinex but agreed to take it. She gets hypoxic during the cough paroxysms. Started on IV Solu-Medrol. Low blood pressure 94/43. Antihypertensive medications held. Physical exam General: Alert, Oriented x3, Cooperative, afebrile HEENT: Atraumatic, PERRLA, EOMI, Normocephalic Oral: Congested. No Gingival or Mucosal Lesions/ Ulcerations Neck: Supple, No JVD, Negative Carotid Bruits Lungs: Air entry diminished in bilateral lung bases. Bilateral wheezing and rhonchi. Cardiovascular: Sinus tachycardia, Normal S1, Normal S2, respiratory Abdomen: Bowel Sounds Present, Soft, Non Tender, Non-Distended : Low urine output. Clinton catheter inserted. Dark urine. No renal angle tenderness. No suprapubic tenderness. Extremities: No edema, Capillary Refill Less than 3 Seconds Skin: No rashes, No breakdown Musculoskeletal: No Tenderness to Palpation of Joints or Extremities Neurological: Cranial nerves II-XII grossly intact, DTR 2+/4. No acute focal neurological deficit. Psych/Mental Status: Flat affect. Const alert, oriented x3, no apparent distress and average body habitus General Appearance: cooperative, well kempt and well developed Orientation / Consciousness: awake, oriented to person, oriented to place and oriented to time HEENT normocephalic, head/scalp atraumatic and moist oral mucous membranes Eyes PERRL, EOMs intact bilaterally and conjunctivae normal Neck supple, no JVD, thyroid normal and no carotid bruits General: trachea midline Resp normal respiratory effort, no retractions and no use of accessory muscles Resp Narrative: Patient has inspiratory rales over all lung mi bilaterally Auscultation: rales bilateral and diffuse; Negative for rhonchi or wheezes Cardio regular rate, regular rhythm, S1 normal heart sound, S2 normal heart sound, no murmurs, no rub and no gallops GI normal to inspection, nondistended, normoactive bowel sounds, soft to palpation, non-tender and non-distended Extremity no clubbing, cyanosis or edema Skin no rashes or lesions noted General Skin Exam: no breakdown Neuro oriented x3, CN's II-XII intact bilaterally, moves all extremities, no focal motor deficits and no sensory deficits noted Sensorium / Orientation: awake, alert, oriented to person, oriented to place and oriented to time Speech: speech normal Psych affect normal Assessment & Plan Assessment/Plan (1) Acute hypoxemic respiratory failure: (2) Acute non-ST elevation myocardial infarction (NSTEMI): PLAN: Plan 1. Non-STEMI with eccentric mid segment 70 to 80% right coronary artery and nonocclusive coronary disease in the left main, left anterior descending artery, and the circumflex artery. On medical management. Patient on aspirin, Brilinta, metoprolol 25 mg twice daily, losartan 50 mg daily, HCTZ 25 mg daily and atorvastatin 40 mg daily. 06/06: BP lower side but SBP still more than 90 average. IV fluid Ringer lactate 1 L bolus. Hold antihypertensive medications. Later on that day blood pressure improved 109/57. Repeat hemoglobin 11.6 g. Platelet count 311,000. #2 Acute hypoxic respiratory failure due to undiagnosed chronic lung disease, favor chronic pulmonary fibrosis with a possible overlap of COPD with paroxysms of cough-patient will remain on aerosol treatments, continue present treatment with bronchodilators and inhaled corticosteroids, patient most likely will need set up for home oxygen when she goes home, she will need to follow-up with pulmonary medicine as an outpatient. 06/05: Yesterday patient was started on codeine/guaifenesin but patient did not take it, stated gets itching with codeine but she is on hydrocodone scheduled and as needed and she is on scheduled prednisone and IV Solu-Medrol as needed. Advised aggressive incentive spirometry, Mucinex DM as decongestant. She is desaturating even on 10 L of mass therefore advised Airvo. Earlier customer loyalty representative was consulted 06/06: IV Solu-Medrol started. Continue DuoNeb nebulization, patient able to take Mucinex. Continue cough medication, decongestant, incentive spirometry and Airvo. Pulmonary follow-up requested. Palliative care requested by patient's daughter #3 pulmonary fibrosis/possible COPD/interstitial lung disease-patient has paroxysms of cough that makes her very short of breath and tachypneic. His central cough is not predominantly from URI but respiratory panel, COVID-19 PCR are negative. Patient seen by pulm neurology. CTA chest shows bibasilar subpleural interstitial septal thickening and groundglass opacities representing evolving interstitial lung disease. Autoimmune panel was ordered and follow-up with pulmonary medicine after 2 weeks to get baseline PFT. Incentive spirometry. Diuresis as per tolerated. 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 #5 psoriatic arthritis-patient is on methotrexate chronically, this will be continued here. Patient follows outside printing worker supervisor for psoriatic arthritis. Clinical Impression(s) from Imaging Studies Chest X-Ray 06/01/23 18:28 IMPRESSION: Chronic interstitial lung disease. Chest CTA 06/01/23 19:08 IMPRESSION: Chronic interstitial lung disease. No demonstrated pulmonary embolism or arterial dissection. Cholelithiasis. Echocardiogram 06/02/23 02:00 Interpretation Summary The estimated ejection fraction is 55-60 %. No previous study to compare Charges/Coding Visit Charges Inpatient E&M: 95728 Subs Hosp L2
--- NOTE | 2023-06-06 08:47 | CASEMGMT ---
Discharge Planning [place] and [facility] updated that patient will be here throughout weekend and has not decided on placement/foc. Tomasa Johns, Discharge Planning Asst.
[2023-06-06] MEDS: Methylprednisolone Sod Succ 40 MG/ML VIAL IV ×3 (09:22→23:00)
[2023-06-06] MEDS: hydroCHLOROthiazide 25 MG Tablet PO (09:22)
[2023-06-06] MEDS: HYDROcodone Bitartrate/Apap 5/325 Tablet PO ×2 (09:22→22:51)
[2023-06-06] MEDS: 0.9% Saline Lock 10 ML Syringe IV ×2 (09:22→15:25)
[2023-06-06] MEDS: Lactated Ringers 1,000 ML 999 ML IV (09:22)
[2023-06-06] MEDS: Senna/Docusate Sodium 1 Tablet 2 TABLET PO (09:22)
[2023-06-06] MEDS: guaiFENesin/D-Methorphan TAB.SR.12H 1 TABLET PO ×2 (09:23→22:50)
[2023-06-06] MEDS: Folic Acid 1 MG Tablet PO (09:23)
[2023-06-06 09:46] LABS: Absolute Lymphocyte Count 1.05 X10^3/uL (0.83-4.51); Absolute Neutrophil Count 4.1 X10^3/uL (2.0-7.7); Basophil# 0.04 X10^3/uL; Basophil% 0.6 % (0-1); Eosinophil# 0.72 X10^3/uL; Eosinophils% 10.1 % (0-5); Hematocrit 36.3 % (37-47); Hemoglobin 11.6 g/dL (12.0-15.0); Lymphocyte # 1.05 X10^3/ul (0.83-4.51); Lymphocyte % 14.7 % (19-41); Mean Corpuscular Volume 103.4 fL (81-99); Mean Platelet Vol. 10.7 fl (6.2-12.0); Monocyte# 1.12 X10^3/uL; Monocyte% 15.7 % (0-10); NRBC Flagged by Analyzer 0 % (0-5); Neutrophil # 4.12 X10^3/uL (2.7-7.7); Neutrophil % 57.9 % (47-70); Platelet Count 311 K/mm3 (150-450); RBC Distribution Width CV 15.3 % (11.6-14.6); RBC Distribution Width SD 56.9 fl (35.1-43.9); Red Blood Count 3.51 M/mm3 (4.2-5.4); White Blood Count 7.1 K/mm3 (4.4-11.0)
--- NOTE | 2023-06-06 10:00 | EKG12_ITS ---
Test Reason : AM EKG Blood Pressure : / mmHG Vent. Rate : 065 BPM Atrial Rate : 065 BPM P-R Int : 142 ms QRS Dur : 080 ms QT Int : 412 ms P-R-T Axes : 024 034 008 degrees QTc Int : 428 ms Normal sinus rhythm Nonspecific T wave abnormality Abnormal ECG When compared with ECG of 05-JUN-2023 05:44, MANUAL COMPARISON REQUIRED, DATA IS UNCONFIRMED Confirmed by DOMO UMAÑA, MELVI ([id number]), manuscript editor BRIDGETT CRESPO ([id number]) on 07/09/2023 1:56:06 PM Referred By: Confirmed By:MELVI OLIVEROS MD
[2023-06-06 10:42] LABS: ALB/GLOB Ratio 0.6 RATIO (0.9-2.4); AST(SGOT) 42 U/L (15-37); Alanine Aminotransfer ALT/SGPT 19 U/L (13-56); Albumin, Serum 2.6 g/dL (3.2-5.0); Alkaline Phosphatase 65 U/L (45-117); Anion Gap 7 (5-15); BUN 33 mg/dL (7-18); Calcium,Total 9.3 mg/dL (8.5-10.1); Chloride 102 mmol/L (98-107); Creatinine, Serum 0.94 mg/dL (0.55-1.02); EST Glomerular Filtration Rate 62 mL/min (>60); Est Glom Filt Rate - Afr Amer 75 mL/min (>60); Globulin 4.2 g/dL (2.2-4.2); Glucose 89 mg/dL (74-106); Potassium 3.6 mmol/L (3.5-5.1); Protein, Total 6.8 g/dL (6.4-8.2); Sodium Level 136 mmol/L (136-145)
[2023-06-06] MEDS: Aspirin 81 MG TAB.CHEW PO (11:22)
[2023-06-06] MEDS: TICAGRELOR 90 MG TABLET PO ×2 (11:22→22:48)
[2023-06-06] MEDS: Bisacodyl 5 MG Tablet 10 MG PO (13:07)
[2023-06-06] MEDS: Polyethylene Glycol 3350 17 GM PACKET PO (13:07)
[2023-06-06] MEDS: Atorvastatin Calcium 40 MG Tablet PO (22:49)
[2023-06-06] MEDS: tiZANidine HCl 2 MG Tablet 4 MG PO (22:51)
[2023-06-06] MEDS: Pantoprazole Sodium 40 MG Tablet PO (22:51)
[2023-06-06] MEDS: Oxymetazoline 0.05% 1 SPRAY SPRAY.BTL 2 SPRAY NASAL (22:57)
[2023-06-06] MEDS: Sodium Chloride 0.65% 1 SPRAY SPRAY.BTL 2 SPRAY NASAL (23:11)
[2023-06-07] VITALS (20 sets, daily range): BP systolic 89–109; BP diastolic 45–60; PULSE 57–74; RESP 16–26; TEMP 36.4–36.9; O2SAT 94–100; BMI 36.7
--- NOTE | 2023-06-07 00:48 | EKG12_ITS ---
Test Reason : DIZZINESS Blood Pressure : / mmHG Vent. Rate : 057 BPM Atrial Rate : 057 BPM P-R Int : 172 ms QRS Dur : 084 ms QT Int : 446 ms P-R-T Axes : 036 014 -03 degrees QTc Int : 434 ms Sinus bradycardia Nonspecific T wave abnormality Abnormal ECG When compared with ECG of 06-JUN-2023 05:18, MANUAL COMPARISON REQUIRED, DATA IS UNCONFIRMED Confirmed by DOMO UMAÑA, MELVI ([id number]), editor publications BRIDGETT CRESPO ([id number]) on 07/09/2023 1:54:52 PM Referred By: Confirmed By:MELVI OLIVEROS MD
[2023-06-07] MEDS: Benzonatate 100 MG Capsule 200 MG PO ×3 (04:55→21:23)
[2023-06-07] MEDS: Methylprednisolone Sod Succ 40 MG/ML VIAL IV ×3 (04:57→21:22)
[2023-06-07] MEDS: 0.9% Saline Lock 10 ML Syringe IV ×2 (04:58→09:51)
[2023-06-07 06:27] LABS: Bedside Glucose 208 mg/dL (74-106)
[2023-06-07 06:35] LABS: Absolute Lymphocyte Count 0.62 X10^3/uL (0.83-4.51); Absolute Neutrophil Count 6.2 X10^3/uL (2.0-7.7); Basophil# 0.03 X10^3/uL; Basophil% 0.4 % (0-1); Hematocrit 35.5 % (37-47); Hemoglobin 11.3 g/dL (12.0-15.0); Lymphocyte # 0.62 X10^3/ul (0.83-4.51); Lymphocyte % 8.3 % (19-41); Mean Corp Hgb Conc 31.8 g/dL (32-36); Mean Corpuscular Hgb 32.8 pg (27.0-32.0); Mean Corpuscular Volume 103.2 fL (81-99); Monocyte# 0.52 X10^3/uL; Monocyte% 6.9 % (0-10); NRBC Flagged by Analyzer 0 % (0-5); Neutrophil # 6.23 X10^3/uL (2.7-7.7); Neutrophil % 83.2 % (47-70); Platelet Count 314 K/mm3 (150-450); RBC Distribution Width CV 14.6 % (11.6-14.6); RBC Distribution Width SD 54.9 fl (35.1-43.9); Red Blood Count 3.44 M/mm3 (4.2-5.4); White Blood Count 7.5 K/mm3 (4.4-11.0)
[2023-06-07] MEDS: Ipratropium/Albuterol Sulfate 3 ML AMPUL.NEB INHALATION ×4 (07:00→19:57)
[2023-06-07 07:03] LABS: Anion Gap 4 (5-15); BUN 29 mg/dL (7-18); BUN/Creat Ratio 39.1 RATIO (10-20); Calcium,Total 9.1 mg/dL (8.5-10.1); Chloride 101 mmol/L (98-107); Creatinine, Serum 0.74 mg/dL (0.55-1.02); EST Glomerular Filtration Rate 82 mL/min (>60); Est Glom Filt Rate - Afr Amer 99 mL/min (>60); Estimated Creatinine Clearance 44.56 ml/min; Glucose 133 mg/dL (74-106); Potassium 3.9 mmol/L (3.5-5.1); Sodium Level 135 mmol/L (136-145)
--- NOTE | 2023-06-07 07:14 | PN.HOSP_ITS ---
Reason for Visit Reason for Visit: Diagnoses Polyneuropathy, unspecified (06/01/23) Essential (primary) hypertension (06/01/23) Non-ST elevation (NSTEMI) myocardial infarction (06/01/23) Acute respiratory failure with hypoxia (06/01/23) Dyspnea, unspecified (06/01/23) Subjective Subjective Follow-up for acute hypoxic respiratory failure. Objective Data Objective Data Vital Signs: Vital Signs Temp Pulse Resp BP Pulse Ox O2 Del Method O2 Flow Rate 98.1 F 59 L 23 H 103/54 L 96 Airvo 45 06/07/23 06:04 06/07/23 06:04 06/07/23 06:04 06/07/23 06:04 06/07/23 06:04 06/07/23 06:04 06/07/23 06:04 FiO2 70 06/07/23 06:04 Oxygen Flow Rate (L/min) 45 Oxygen Delivery Method Airvo Weight: 213 lb 13.574 oz Body Mass Index (BMI) 36.7 Intake & Output: Intake and Output for Last 24 Hours 06/05/23 06/06/23 06/07/23 23:59 23:59 23:59 Intake Total 1140 / 1140 1950.00 / 1950.00 350 / 350 Output Total 2625 / 2625 250 / 250 Balance 1140 / 340 -675.00 / -675.00 100 / 100 Lab / Micro Data 06/07/23 05:34 06/07/23 05:34 Labs: Laboratory Results - last 24 hr 06/03/23 06:16: PATRICIA-1 Antibody Not Reportable, SS-A/Ro IgG Antibody Not Repor table, SS-B/La IgG Antibody Not Reportable, Sm (Matos) Antibody Not Reportable, TWO NEEDLE MACHINE OPERATOR Antibody Not Reportable, Scl-70 Scleroderma Ab Not Reportable, Double Strand DNA Ab Not Reportable, Centromere B Antibody Not Reportable 06/06/23 09:00: WBC 7.1, RBC 3.51 L, Hgb 11.6 L, Hct 36.3 L, MCV 103.4 H, MCH 33.0 H, MCHC 32.0, RDW Std Deviation 56.9 H, RDW Coeff of Sonya 15.3 H, Plt Count 311, MPV 10.7, Immature Gran % (Auto) 1.000 H, Neut % (Auto) 57.9, Lymph % (Auto) 14.7 L, [place] % (Auto) 15.7 H, Eos % (Auto) 10.1 H, Baso % (Auto) 0.6, Absolute Neuts (auto) 4.1, Absolute Lymphs (auto) 1.05, Nucleated RBC % 0, Sodium 136, Potassium 3.6, Chloride 102, Carbon Dioxide 27.0, Anion Gap 7, BUN 33 H, Creatinine 0.94, Estim Creat Clear Calc 47.40, Est GFR (MDRD) Af Amer 75, Est GFR (MDRD) Non-Af 62, BUN/Creatinine Ratio 35.0 H, Glucose 89, Calcium 9.3, Total Bilirubin 0.80, AST 42 H, ALT 19, Alkaline Phosphatase 65, Total Protein 6.8, Albumin 2.6 L, Globulin 4.2, Albumin/Globulin Ratio 0.6 L 06/07/23 01:50: POC Glucose 208 H 06/07/23 05:34: WBC 7.5, RBC 3.44 L, Hgb 11.3 L, Hct 35.5 L, MCV 103.2 H, MCH 32.8 H, MCHC 31.8 L, RDW Std Deviation 54.9 H, RDW Coeff of Sonya 14.6, Plt Count 314, MPV 11.0, Immature Gran % (Auto) 1.200 H, Neut % (Auto) 83.2 H, Lymph % (Auto) 8.3 L, [place] % (Auto) 6.9, Eos % (Auto) 0.0, Baso % (Auto) 0.4, Absolute Neuts (auto) 6.2, Absolute Lymphs (auto) 0.62 L, Nucleated RBC % 0, Sodium 135 L , Potassium 3.9, Chloride 101, Carbon Dioxide 30.0, Anion Gap 4 L, BUN 29 H, Creatinine 0.74, Estim Creat Clear Calc 44.56, Est GFR (MDRD) Af Amer 99, Est GFR (MDRD) Non-Af 82, BUN/Creatinine Ratio 39.1 H, Glucose 133 H, Calcium 9.1 Micro: Microbiology 06/05/23 14:05 Interface Orders Group A Streptococcus Rapid Screen - Preliminary 06/01/23 18:10 Blood Culture (Wb) #2 - Anticubital Right Blood Culture - Preliminary No growth in 48 hours. 06/01/23 18:10 Blood Culture (Wb) - Venous Blood Culture - Preliminary No growth in 48 hours. 06/01/23 23:23 Mucosa - Nasopharyngeal Respiratory Panel (PCR) - Final 06/01/23 23:23 Mucosa - Nasopharyngeal Coronavirus COVID-19 PCR - Final 06/01/23 18:00 Nasal Secretion SARS-CoV-2 & FLU Antigen (Rapid) - Final Physical Exam Narrative Seen and examined. Patient feels improvement in his shortness of breath cough and congestion. Blood pressure also better. Patient's [id number] is a nurse professor/teacher. I talked to her yesterday. I also talked with the patient's other son. In the room who works in the hospital. Physical exam General: Alert, Oriented x3, Cooperative, afebrile HEENT: Atraumatic, PERRLA, EOMI, Normocephalic Oral: Congested. No Gingival or Mucosal Lesions/ Ulcerations Neck: Supple, No JVD, Negative Carotid Bruits Lungs: Air entry diminished in bilateral lung bases. Bilateral wheezing and rhonchi. Cardiovascular: Sinus tachycardia, Normal S1, Normal S2, respiratory Abdomen: Bowel Sounds Present, Soft, Non Tender, Non-Distended : Low urine output. Clinton catheter inserted. Dark urine. No renal angle tenderness. No suprapubic tenderness. Extremities: No edema, Capillary Refill Less than 3 Seconds Skin: No rashes, No breakdown Musculoskeletal: No Tenderness to Palpation of Joints or Extremities Neurological: Cranial nerves II-XII grossly intact, DTR 2+/4. No acute focal neurological deficit. Psych/Mental Status: Flat affect. Assessment & Plan Assessment/Plan (1) Acute hypoxemic respiratory failure: (2) Acute non-ST elevation myocardial infarction (NSTEMI): PLAN: Plan 1. Non-STEMI with eccentric mid segment 70 to 80% right coronary artery and nonocclusive coronary disease in the left main, left anterior descending artery, and the circumflex artery. On medical management. Patient on aspirin, Brilinta, metoprolol 25 mg twice daily, losartan 50 mg daily, HCTZ 25 mg daily and atorvastatin 40 mg daily. 06/06: BP lower side but SBP still more than 90 average. IV fluid Ringer lactate 1 L bolus. Hold antihypertensive medications. Later on that day blood pressure improved 109/57. Repeat hemoglobin 11.6 g. Platelet count 311,000. 06/07: Echo shows EF 55 to 60%. No significant valvular abnormality reported. Blood pressure is better than yesterday. #2 Acute hypoxic respiratory failure due to undiagnosed chronic lung disease, favor chronic pulmonary fibrosis with a possible overlap of COPD with paroxysms of cough-patient will remain on aerosol treatments, continue present treatment with bronchodilators and inhaled corticosteroids, patient most likely will need set up for home oxygen when she goes home, she will need to follow-up with pulmonary medicine as an outpatient. 06/05: Yesterday patient was started on codeine/guaifenesin but patient did not take it, stated gets itching with codeine but she is on hydrocodone scheduled and as needed and she is on scheduled prednisone and IV Solu-Medrol as needed. Advised aggressive incentive spirometry, Mucinex DM as decongestant. She is desaturating even on 10 L of mass therefore advised Airvo. Earlier communications equipment supervisor was consulted 06/06: IV Solu-Medrol started. Continue DuoNeb nebulization, patient able to take Mucinex. Continue cough medication, decongestant, incentive spirometry and Airvo. Pulmonary follow-up requested. Palliative care requested by patient's daughter 06/07: Pulmonary follow-up reviewed and appreciated. I agree with IV Solu-Medrol and needs prolonged prednisone in the outpatient setting until follows in clinic for further PFT evaluation.2 dosages of IV Lasix 20 mg twice daily with holding parameter. Hold HCTZ as patient is on Lasix. Normal right ventricular systolic function. #3 pulmonary fibrosis/possible COPD/interstitial lung disease-patient has paroxysms of cough that makes her very short of breath and tachypneic. His central cough is not predominantly from URI but respiratory panel, COVID-19 PCR are negative. Patient seen by pulm neurology. CTA chest shows bibasilar subpleural interstitial septal thickening and groundglass opacities representing evolving interstitial lung disease. Autoimmune panel was ordered and follow-up with pulmonary medicine after 2 weeks to get baseline PFT. Incentive spirometry. Diuresis as per tolerated. 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 #5 psoriatic arthritis-patient is on methotrexate chronically, this will be continued here. Patient follows outside sports nutritionist for psoriatic arthritis. Clinical Impression(s) from Imaging Studies Chest X-Ray 06/01/23 18:28 IMPRESSION: Chronic interstitial lung disease. Chest CTA 06/01/23 19:08 IMPRESSION: Chronic interstitial lung disease. No demonstrated pulmonary embolism or arterial dissection. Cholelithiasis. Echocardiogram 06/02/23 02:00 Interpretation Summary The estimated ejection fraction is 55-60 %. No previous study to compare Charges/Coding Visit Charges Inpatient E&M: 41474 Subs Hosp L2
--- NOTE | 2023-06-07 08:35 | RAD_ITS ---
INDICATION: Dyspnea EXAMINATION/TECHNIQUE: X-RAY - XR Chest 1 View COMPARISON: Prior examination of 06/01/2023. FINDINGS: LINES/DEVICES: None. LUNGS: Prominent interstitial markings again likely chronic. No new infiltrate is seen. No evidence of pleural effusions. MEDIASTINUM AND CARDIOVASCULAR STRUCTURES: Cardiac silhouette not enlarged. Central airways and mediastinal contour are unremarkable. BONES AND SOFT TISSUES: Unremarkable. RAD/Chest 1 View (Portable) IMPRESSION: No significant change. No new infiltrate is seen. Electronically Signed: Jsoe Russell MD at 9:13 EDT ,
[2023-06-07] MEDS: Polyethylene Glycol 3350 17 GM PACKET PO (09:34)
[2023-06-07] MEDS: Metoprolol Tartrate 25 MG Tablet PO (09:34)
[2023-06-07] MEDS: guaiFENesin/D-Methorphan TAB.SR.12H 1 TABLET PO ×2 (09:34→21:23)
[2023-06-07] MEDS: Losartan Potassium 50 MG Tablet PO (09:35)
[2023-06-07] MEDS: Aspirin 81 MG TAB.CHEW PO (09:35)
[2023-06-07] MEDS: TICAGRELOR 90 MG TABLET PO ×2 (09:35→21:23)
[2023-06-07] MEDS: hydroCHLOROthiazide 25 MG Tablet PO (09:35)
[2023-06-07] MEDS: Folic Acid 1 MG Tablet PO (09:35)
[2023-06-07] MEDS: Furosemide 20 MG/2 ML VIAL IV ×2 (09:50→18:51)
[2023-06-07] MEDS: HYDROcodone Bitartrate/Apap 5/325 Tablet PO ×2 (09:50→21:22)
[2023-06-07] MEDS: guaiFENesin/Codeine 5 ML UDC 10 ML PO ×2 (12:39→18:51)
--- NOTE | 2023-06-07 13:27 | PN.CC_ITS ---
Assessment & Plan Assessment/Plan (1) Acute respiratory failure with hypoxia: (2) Acute non-ST elevation myocardial infarction (NSTEMI): (3) Volume overload: (4) Psoriatic arthritis: PLAN: Plan Assessment * Acute on chronic hypoxic respiratory failure worsening likely secondary to underlying ILD exacerbation * NSTEMI s/p PCI * Volume overload * Obesity BMI 36 * Former smoker * History of psoriatic arthritis on MTX and diego Plan Evaluated patient's previous CT scan in [address] during this admission. Patient had signs of fibrosis at the bases which appear to be worsening. She will need outpatient PFTs and further pulmonary work-up including possibly antifibrotics. Patient was started on Solu-Medrol 40 Q6, continue steroids for now. She will need a very slow wean. Would recommend to continue steroids in the outpatient setting until she is evaluated in clinic Wean oxygen as tolerated. She will likely require home oxygen Patient is in positive balance. Recommend fluid restriction. 2 doses of Lasix ordered with holding parameters Echocardiogram findings on 06/02 reviewed. No signs of right heart failure at this time. Subjective Subjective Patient's respiratory status has been worsening. She is currently on heated high flow at around 45 L 70% FiO2. She reports that she feels more short of breath but started feeling better when steroids were initiated yesterday. She tells me that she is not usually on home oxygen. She has had psoriasis for around 40 years. She has had a CT scan in the past in 2013 which showed signs of early fibrosis. Objective Data Objective Data Vital Signs: Vital Signs Temp Pulse Resp BP Pulse Ox O2 Del Method O2 Flow Rate 36.9 C 72 20 H 109/53 L 96 High Flow 45 06/07/23 10:04 06/07/23 10:52 06/07/23 10:52 06/07/23 10:04 06/07/23 12:50 06/07/23 10:52 06/07/23 12:50 FiO2 70 06/07/23 10:04 Oxygen Flow Rate (L/min) 45 Oxygen Delivery Method High Flow Weight: 97 kg Body Mass Index (BMI) 36.7 Intake & Output: Intake and Output for Last 24 Hours 06/05/23 06/06/23 06/07/23 23:59 23:59 23:59 Intake Total 1140 / 1140 1950.00 / 1950.00 350 / 350 Output Total 2625 / 2625 250 / 250 Balance 1140 / 340 -675.00 / -675.00 100 / 100 Lab / Micro Data 06/07/23 05:34 06/07/23 05:34 Labs: Laboratory Results - last 24 hr 06/03/23 06:16: PATRICIA-1 Antibody Not Reportable, SS-A/Ro IgG Antibody Not Repor table, SS-B/La IgG Antibody Not Reportable, Sm (Matos) Antibody Not Reportable, CERTIFIED FRAUD EXAMINER Antibody Not Reportable, Scl-70 Scleroderma Ab Not Reportable, Double Strand DNA Ab Not Reportable, Centromere B Antibody Not Reportable 06/07/23 01:50: POC Glucose 208 H 06/07/23 05:34: WBC 7.5, RBC 3.44 L, Hgb 11.3 L, Hct 35.5 L, MCV 103.2 H, MCH 32.8 H, MCHC 31.8 L, RDW Std Deviation 54.9 H, RDW Coeff of Sonya 14.6, Plt Count 314, MPV 11.0, Immature Gran % (Auto) 1.200 H, Neut % (Auto) 83.2 H, Lymph % (Auto) 8.3 L, Rolette % (Auto) 6.9, Eos % (Auto) 0.0, Baso % (Auto) 0.4, Absolute Neuts (auto) 6.2, Absolute Lymphs (auto) 0.62 L, Nucleated RBC % 0, Sodium 135 L , Potassium 3.9, Chloride 101, Carbon Dioxide 30.0, Anion Gap 4 L, BUN 29 H, Creatinine 0.74, Estim Creat Clear Calc 44.56, Est GFR (MDRD) Af Amer 99, Est GFR (MDRD) Non-Af 82, BUN/Creatinine Ratio 39.1 H, Glucose 133 H, Calcium 9.1 Micro: Microbiology 06/05/23 14:05 Interface Orders Group A Streptococcus Rapid Screen - Final 06/01/23 18:10 Blood Culture (Wb) #2 - Anticubital Right Blood Culture - Final No growth in 5 days. 06/01/23 18:10 Blood Culture (Wb) - Venous Blood Culture - Final No growth in 5 days. 06/01/23 23:23 Mucosa - Nasopharyngeal Respiratory Panel (PCR) - Final 06/01/23 23:23 Mucosa - Nasopharyngeal Coronavirus COVID-19 PCR - Final 06/01/23 18:00 Nasal Secretion SARS-CoV-2 & FLU Antigen (Rapid) - Final Radiography Diagnostic Testing: Radiology Impression Chest X-Ray 06/07/23 08:35 IMPRESSION: No significant change. No new infiltrate is seen. Electronically Signed: Jose Russell MD at 9:13 EDT , Physical Exam Const oriented x3 and no apparent distress General Appearance: cooperative HEENT normocephalic Eyes EOMs intact bilaterally Resp no use of accessory muscles Effort and Inspection: able to speak in complete sentences Auscultation: rales and rhonchi Cardio regular rate and regular rhythm GI soft to palpation and non-tender Extremity no clubbing, cyanosis or edema Neuro oriented x3, moves all extremities and no focal motor deficits Psych mental status grossly normal, thought process normal and cooperative Charges/Coding Visit Charges Inpatient E&M: 77689 Subs Hosp L3
[2023-06-07] MEDS: tiZANidine HCl 2 MG Tablet 4 MG PO (21:22)
[2023-06-07] MEDS: Pantoprazole Sodium 40 MG Tablet PO (21:23)
[2023-06-07] MEDS: Atorvastatin Calcium 40 MG Tablet PO (21:23)
[2023-06-08] VITALS (19 sets, daily range): BP systolic 97–135; BP diastolic 51–64; PULSE 52–69; RESP 16–23; TEMP 36.5–36.8; O2SAT 87–99; BMI 36.5
[2023-06-08] MEDS: Sodium Chloride 0.65% 1 SPRAY SPRAY.BTL 2 SPRAY NASAL (01:38)
[2023-06-08] MEDS: Benzonatate 100 MG Capsule 200 MG PO ×3 (05:58→22:30)
[2023-06-08] MEDS: 0.9% Saline Lock 10 ML Syringe IV (05:58)
[2023-06-08] MEDS: guaiFENesin/Codeine 5 ML UDC 10 ML PO ×3 (05:58→20:02)
[2023-06-08] MEDS: Methylprednisolone Sod Succ 40 MG/ML VIAL IV ×2 (05:58→22:31)
[2023-06-08 06:29] LABS: Absolute Lymphocyte Count 0.87 X10^3/uL (0.83-4.51); Absolute Neutrophil Count 11.4 X10^3/uL (2.0-7.7); Basophil# 0.02 X10^3/uL; Basophil% 0.1 % (0-1); Hemoglobin 11.9 g/dL (12.0-15.0); Lymphocyte # 0.87 X10^3/ul (0.83-4.51); Lymphocyte % 6.5 % (19-41); Mean Corp Hgb Conc 32.2 g/dL (32-36); Mean Corpuscular Hgb 32.5 pg (27.0-32.0); Mean Corpuscular Volume 101.1 fL (81-99); Mean Platelet Vol. 10.8 fl (6.2-12.0); Monocyte# 0.92 X10^3/uL; Monocyte% 6.8 % (0-10); NRBC Flagged by Analyzer 0 % (0-5); Neutrophil # 11.42 X10^3/uL (2.7-7.7); Platelet Count 396 K/mm3 (150-450); RBC Distribution Width CV 14.7 % (11.6-14.6); RBC Distribution Width SD 53.2 fl (35.1-43.9); Red Blood Count 3.66 M/mm3 (4.2-5.4); White Blood Count 13.4 K/mm3 (4.4-11.0)
[2023-06-08] MEDS: Ipratropium/Albuterol Sulfate 3 ML AMPUL.NEB INHALATION ×4 (07:02→20:11)
[2023-06-08 07:32] LABS: Anion Gap 7 (5-15); BUN 45 mg/dL (7-18); BUN/Creat Ratio 47.1 RATIO (10-20); Calcium,Total 9.3 mg/dL (8.5-10.1); Chloride 100 mmol/L (98-107); Creatinine, Serum 0.96 mg/dL (0.55-1.02); EST Glomerular Filtration Rate 61 mL/min (>60); Est Glom Filt Rate - Afr Amer 74 mL/min (>60); Estimated Creatinine Clearance 46.41 ml/min; Glucose 134 mg/dL (74-106); Potassium 3.9 mmol/L (3.5-5.1); Sodium Level 135 mmol/L (136-145)
--- NOTE | 2023-06-08 08:04 | PN.HOSP_ITS ---
Reason for Visit Reason for Visit: Diagnoses Fluid overload, unspecified (06/01/23) Polyneuropathy, unspecified (06/01/23) Essential (primary) hypertension (06/01/23) Non-ST elevation (NSTEMI) myocardial infarction (06/01/23) Acute respiratory failure with hypoxia (06/01/23) Arthropathic psoriasis, unspecified (06/01/23) Dyspnea, unspecified (06/01/23) Objective Data Objective Data Vital Signs: Vital Signs Temp Pulse Resp BP Pulse Ox O2 Del Method O2 Flow Rate 97.7 F L 63 19 H 109/64 92 High Flow 7 06/08/23 07:58 06/08/23 07:58 06/08/23 07:58 06/08/23 07:58 06/08/23 07:58 06/08/23 07:58 06/08/23 07:58 FiO2 70 06/07/23 10:04 Oxygen Flow Rate (L/min) 7 Oxygen Delivery Method High Flow Weight: 212 lb 11.937 oz Body Mass Index (BMI) 36.5 Intake & Output: Intake and Output for Last 24 Hours 06/06/23 06/07/23 06/08/23 23:59 23:59 23:59 Intake Total 1950.00 / 1950.00 650 / 850 350 / 350 Output Total 2625 / 2625 1700 / 2275 775 / 775 Balance -675.00 / -675.00 -1050 / -1425 -425 / -425 Lab / Micro Data 06/08/23 05:55 06/08/23 05:55 Labs: Laboratory Results - last 24 hr 06/08/23 05:55: WBC 13.4 H, RBC 3.66 L, Hgb 11.9 L, Hct 37.0, MCV 101.1 H, MCH 32.5 H, MCHC 32.2, RDW Std Deviation 53.2 H, RDW Coeff of Sonya 14.7 H, Plt Count 396, MPV 10.8, Immature Gran % (Auto) 1.600 H, Neut % (Auto) 85.0 H, Lymph % (Auto) 6.5 L, Eaton % (Auto) 6.8, Eos % (Auto) 0.0, Baso % (Auto) 0.1, Absolute Neuts (auto) 11.4 H, Absolute Lymphs (auto) 0.87, Nucleated RBC % 0, Sodium 135 L, Potassium 3.9, Chloride 100, Carbon Dioxide 28.0, Anion Gap 7, BUN 45 H, Creatinine 0.96, Estim Creat Clear Calc 46.41, Est GFR (MDRD) Af Amer 74, Est GFR (MDRD) Non-Af 61, BUN/Creatinine Ratio 47.1 H, Glucose 134 H, Calcium 9.3 Micro: Microbiology 06/05/23 14:05 Interface Orders Group A Streptococcus Rapid Screen - Final 06/01/23 18:10 Blood Culture (Wb) #2 - Anticubital Right Blood Culture - Final No growth in 5 days. 06/01/23 18:10 Blood Culture (Wb) - Venous Blood Culture - Final No growth in 5 days. 06/01/23 23:23 Mucosa - Nasopharyngeal Respiratory Panel (PCR) - Final 06/01/23 23:23 Mucosa - Nasopharyngeal Coronavirus COVID-19 PCR - Final 06/01/23 18:00 Nasal Secretion SARS-CoV-2 & FLU Antigen (Rapid) - Final Radiography Diagnostic Testing: Radiology Impression Chest X-Ray 06/07/23 08:35 IMPRESSION: No significant change. No new infiltrate is seen. Electronically Signed: Jose Russell MD at 9:13 EDT , Physical Exam Narrative Seen and examined. Patient is status first time that she feels her mucus is breaking up and feels/chest congestion. Improvement in shortness of breath cough. Facial congestion looks better. Physical exam General: Alert, Oriented x3, Cooperative, afebrile HEENT: Atraumatic, PERRLA, EOMI, Normocephalic Oral: Congested. No Gingival or Mucosal Lesions/ Ulcerations Neck: Supple, No JVD, Negative Carotid Bruits Lungs: Air entry diminished in bilateral lung bases. Bilateral wheezing and rhonchi has much improved. Still on Airvo 70% FiO2 Cardiovascular: Sinus tachycardia, Normal S1, Normal S2, respiratory Abdomen: Bowel Sounds Present, Soft, Non Tender, Non-Distended : Low urine output. Clinton catheter inserted. Dark urine. No renal angle tenderness. No suprapubic tenderness. Extremities: No edema, Capillary Refill Less than 3 Seconds Skin: No rashes, No breakdown Musculoskeletal: No Tenderness to Palpation of Joints or Extremities Neurological: Cranial nerves II-XII grossly intact, DTR 2+/4. No acute focal neurological deficit. Psych/Mental Status: Flat affect. Assessment & Plan Assessment/Plan (1) Acute hypoxemic respiratory failure: (2) Acute non-ST elevation myocardial infarction (NSTEMI): PLAN: Plan 1. Non-STEMI with eccentric mid segment 70 to 80% right coronary artery and nonocclusive coronary disease in the left main, left anterior descending artery, and the circumflex artery. On medical management. Patient on aspirin, Brilinta, metoprolol 25 mg twice daily, losartan 50 mg daily, HCTZ 25 mg daily and atorvastatin 40 mg daily. 06/06: BP lower side but SBP still more than 90 average. IV fluid Ringer lactate 1 L bolus. Hold antihypertensive medications. Later on that day blood pressure improved 109/57. Repeat hemoglobin 11.6 g. Platelet count 311,000. 06/07: Echo shows EF 55 to 60%. No significant valvular abnormality reported. Blood pressure is better than yesterday. 06/08: Continue above medications. #2 Acute hypoxic respiratory failure due to undiagnosed chronic lung disease, favor chronic pulmonary fibrosis with a possible overlap of COPD with paroxysms of cough-patient will remain on aerosol treatments, continue present treatment with bronchodilators and inhaled corticosteroids, patient most likely will need set up for home oxygen when she goes home, she will need to follow-up with pulmonary medicine as an outpatient. 06/05: Yesterday patient was started on codeine/guaifenesin but patient did not take it, stated gets itching with codeine but she is on hydrocodone scheduled and as needed and she is on scheduled prednisone and IV Solu-Medrol as needed. Advised aggressive incentive spirometry, Mucinex DM as decongestant. She is desaturating even on 10 L of mass therefore advised Airvo. Earlier trim sawyer was consulted 06/06: IV Solu-Medrol started. Continue DuoNeb nebulization, patient able to take Mucinex. Continue cough medication, decongestant, incentive spirometry and Airvo. Pulmonary follow-up requested. Palliative care requested by patient's daughter 06/07: Pulmonary follow-up reviewed and appreciated. I agree with IV Solu-Medrol and needs prolonged prednisone in the outpatient setting until follows in clinic for further PFT evaluation.2 dosages of IV Lasix 20 mg twice daily with holding parameter. Hold HCTZ as patient is on Lasix. Normal right ventricular systolic function. 06/08: Patient on Airvo, changed to high flow oxygen 5 L. HCTZ from tomorrow AM. BP 99 systolic, BUN increased to 45 from 29 therefore hold for further Lasix. #3 pulmonary fibrosis/possible COPD/interstitial lung disease-patient has paroxysms of cough that makes her very short of breath and tachypneic. His central cough is not predominantly from URI but respiratory panel, COVID-19 PCR are negative. Patient seen by pulm neurology. CTA chest shows bibasilar subpleural interstitial septal thickening and groundglass opacities representing evolving interstitial lung disease. Autoimmune panel was ordered and follow-up with pulmonary medicine after 2 weeks to get baseline PFT. Incentive spirometry. Diuresis as per tolerated. 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 #5 psoriatic arthritis-patient is on methotrexate chronically, this will be continued here. Patient follows outside supply chain planner for psoriatic arthritis. Clinical Impression(s) from Imaging Studies Chest X-Ray 06/01/23 18:28 IMPRESSION: Chronic interstitial lung disease. Chest CTA 06/01/23 19:08 IMPRESSION: Chronic interstitial lung disease. No demonstrated pulmonary embolism or arterial dissection. Cholelithiasis. Echocardiogram 06/02/23 02:00 Interpretation Summary The estimated ejection fraction is 55-60 %. No previous study to compare Charges/Coding Visit Charges Inpatient E&M: 16891 Subs Hosp L2
[2023-06-08] MEDS: Polyethylene Glycol 3350 17 GM PACKET PO (08:15)
[2023-06-08] MEDS: Folic Acid 1 MG Tablet PO (08:16)
[2023-06-08] MEDS: Aspirin 81 MG TAB.CHEW PO (08:16)
[2023-06-08] MEDS: Enoxaparin 40 MG/0.4 ML Syringe SC (10:09)
[2023-06-08] MEDS: TICAGRELOR 90 MG TABLET PO ×2 (10:10→22:30)
[2023-06-08] MEDS: Losartan Potassium 50 MG Tablet PO (10:11)
[2023-06-08] MEDS: Methotrexate 2.5 MG Tablet 20 MG PO (10:12)
[2023-06-08] MEDS: guaiFENesin/D-Methorphan TAB.SR.12H 1 TABLET PO ×2 (10:13→22:31)
[2023-06-08] MEDS: Senna/Docusate Sodium 1 Tablet 2 TABLET PO (10:17)
[2023-06-08] MEDS: HYDROcodone Bitartrate/Apap 5/325 Tablet PO ×2 (10:18→22:43)
--- NOTE | 2023-06-08 14:07 | PN.CC_ITS ---
Assessment & Plan Assessment/Plan (1) Acute respiratory failure with hypoxia: (2) Acute non-ST elevation myocardial infarction (NSTEMI): (3) Volume overload: QUALIFIERS: Hypervolemia type: other Qualified Code(s): E87.79 - Other fluid overload (4) Psoriatic arthritis: PLAN: Plan Assessment * Acute hypoxic respiratory failure worsening likely secondary to underlying ILD exacerbation * NSTEMI s/p PCI * Volume overload * Obesity BMI 36 * Former smoker * History of psoriatic arthritis on MTX and diego Plan Evaluated patient's previous CT scan in [address] during this admission. Patient had signs of fibrosis at the bases which appear to be worsening. She will need outpatient PFTs and further pulmonary work-up including possibly antifibrotics. O2 requirements have much improved after lasix yesterday. Will hold off further lasix today as her bp is soft and her Cr slightly increased. Recommend cont fluid restriction Start slow steroid taper. Solumedrol decreased to 40mg bid. She will likely remain on steroids until reevaluated in clinic She is not on home O2. Wean oxygen as tolerated. She will likely require home oxygen eval when ready for DC Echocardiogram findings on 06/02 reviewed. No signs of right heart failure at th is time. Subjective Subjective reports feeling better. she was enjoying breakfast this AM without difficulty. Her O2 requirements have improved Objective Data Objective Data Vital Signs: Vital Signs Temp Pulse Resp BP Pulse Ox O2 Del Method O2 Flow Rate 36.7 C 55 L 19 H 99/59 L 99 High Flow 5 06/08/23 12:00 06/08/23 12:00 06/08/23 12:00 06/08/23 12:00 06/08/23 12:00 06/08/23 12:00 06/08/23 12:00 FiO2 70 06/07/23 10:04 Oxygen Flow Rate (L/min) 5 Oxygen Delivery Method High Flow Weight: 96.5 kg Body Mass Index (BMI) 36.5 Intake & Output: Intake and Output for Last 24 Hours 06/06/23 06/07/23 06/08/23 23:59 23:59 23:59 Intake Total 1950.00 / 1950.00 650 / 850 670 / 670 Output Total 2625 / 2625 1700 / 2275 775 / 775 Balance -675.00 / -675.00 -1050 / -1425 -105 / -105 Lab / Micro Data 06/08/23 05:55 06/08/23 05:55 Labs: Laboratory Results - last 24 hr 06/08/23 05:55: WBC 13.4 H, RBC 3.66 L, Hgb 11.9 L, Hct 37.0, MCV 101.1 H, MCH 32.5 H, MCHC 32.2, RDW Std Deviation 53.2 H, RDW Coeff of Sonya 14.7 H, Plt Count 396, MPV 10.8, Immature Gran % (Auto) 1.600 H, Neut % (Auto) 85.0 H, Lymph % (Auto) 6.5 L, Glenn % (Auto) 6.8, Eos % (Auto) 0.0, Baso % (Auto) 0.1, Absolute Neuts (auto) 11.4 H, Absolute Lymphs (auto) 0.87, Nucleated RBC % 0, Sodium 135 L, Potassium 3.9, Chloride 100, Carbon Dioxide 28.0, Anion Gap 7, BUN 45 H, Creatinine 0.96, Estim Creat Clear Calc 46.41, Est GFR (MDRD) Af Amer 74, Est GFR (MDRD) Non-Af 61, BUN/Creatinine Ratio 47.1 H, Glucose 134 H, Calcium 9.3 Micro: Microbiology 06/05/23 14:05 Interface Orders Group A Streptococcus Rapid Screen - Final 06/01/23 18:10 Blood Culture (Wb) #2 - Anticubital Right Blood Culture - Final No growth in 5 days. 06/01/23 18:10 Blood Culture (Wb) - Venous Blood Culture - Final No growth in 5 days. 06/01/23 23:23 Mucosa - Nasopharyngeal Respiratory Panel (PCR) - Final 06/01/23 23:23 Mucosa - Nasopharyngeal Coronavirus COVID-19 PCR - Final 06/01/23 18:00 Nasal Secretion SARS-CoV-2 & FLU Antigen (Rapid) - Final Physical Exam Const oriented x3 and no apparent distress General Appearance: cooperative HEENT normocephalic Eyes EOMs intact bilaterally Resp no use of accessory muscles Effort and Inspection: able to speak in complete sentences Auscultation: rales and rhonchi Cardio regular rate and regular rhythm GI soft to palpation and non-tender Extremity no clubbing, cyanosis or edema Neuro oriented x3, moves all extremities and no focal motor deficits Psych mental status grossly normal, thought process normal and cooperative Charges/Coding Visit Charges Inpatient E&M: 82072 Subs Hosp L3
[2023-06-08] MEDS: Pantoprazole Sodium 40 MG Tablet PO (22:30)
[2023-06-08] MEDS: tiZANidine HCl 2 MG Tablet 4 MG PO (22:30)
[2023-06-08] MEDS: Atorvastatin Calcium 40 MG Tablet PO (22:30)
[2023-06-08] MEDS: Metoprolol Tartrate 25 MG Tablet PO (22:30)
[2023-06-09] VITALS (14 sets, daily range): BP systolic 72–126; BP diastolic 45–69; PULSE 49–74; RESP 17–25; TEMP 36.4–36.8; O2SAT 92–99; BMI 36.6
[2023-06-09 05:39] LABS: Anion Gap 6 (5-15); BUN 50 mg/dL (7-18); BUN/Creat Ratio 47.6 RATIO (10-20); Calcium,Total 8.9 mg/dL (8.5-10.1); Chloride 102 mmol/L (98-107); Creatinine, Serum 1.05 mg/dL (0.55-1.02); EST Glomerular Filtration Rate 55 mL/min (>60); Est Glom Filt Rate - Afr Amer 66 mL/min (>60); Estimated Creatinine Clearance 42.44 ml/min; Glucose 159 mg/dL (74-106); Potassium 4.4 mmol/L (3.5-5.1); Sodium Level 136 mmol/L (136-145)
[2023-06-09] MEDS: Benzonatate 100 MG Capsule 200 MG PO ×3 (06:09→22:24)
[2023-06-09] MEDS: guaiFENesin/Codeine 5 ML UDC 10 ML PO ×3 (06:10→19:29)
[2023-06-09] MEDS: Enoxaparin 40 MG/0.4 ML Syringe SC (06:20)
[2023-06-09] MEDS: Folic Acid 1 MG Tablet PO (07:57)
[2023-06-09] MEDS: Aspirin 81 MG TAB.CHEW PO (07:57)
[2023-06-09] MEDS: 0.9% Saline Lock 10 ML Syringe IV ×3 (08:01→22:44)
--- NOTE | 2023-06-09 08:31 | PN.HOSP_ITS ---
Reason for Visit
--- NOTE | 2023-06-09 08:31 | PCM.PN.HOSP ---
Reason for Visit Reason for Visit: Diagnoses Fluid overload, unspecified (06/01/23) Other fluid overload (06/01/23) Polyneuropathy, unspecified (06/01/23) Essential (primary) hypertension (06/01/23) Non-ST elevation (NSTEMI) myocardial infarction (06/01/23) Acute respiratory failure with hypoxia (06/01/23) Arthropathic psoriasis, unspecified (06/01/23) Dyspnea, unspecified (06/01/23) Subjective Subjective Still SOB. Objective Data Objective Data Vital Signs: Vital Signs Temp Pulse Resp BP Pulse Ox O2 Del Method O2 Flow Rate 36.6 C 57 L 20 H 106/52 L 96 Nasal Cannula 4 06/09/23 07:53 06/09/23 07:53 06/09/23 07:53 06/09/23 07:53 06/09/23 07:53 06/09/23 07:53 06/09/23 07:53 FiO2 70 06/07/23 10:04 Oxygen Flow Rate (L/min) 4 Oxygen Delivery Method Nasal Cannula Weight: 96.8 kg Body Mass Index (BMI) 36.6 Intake & Output: Intake and Output for Last 24 Hours 06/07/23 06/08/23 06/09/23 23:59 23:59 23:59 Intake Total 650 / 850 870 / 1020 250 / 250 Output Total 1700 / 2275 775 / 775 250 / 250 Balance -1050 / -1425 95 / 245 0 / 0 Lab / Micro Data 06/08/23 05:55 06/09/23 04:55 Labs: Laboratory Results - last 24 hr 06/09/23 04:55: Sodium 136, Potassium 4.4, Chloride 102, Carbon Dioxide 28.0, Anion Gap 6, BUN 50 H, Creatinine 1.05 H, Estim Creat Clear Calc 42.44, Est GFR (MDRD) Af Amer 66, Est GFR (MDRD) Non-Af 55 L, BUN/Creatinine Ratio 47.6 H, Glucose 159 H, Calcium 8.9 Micro: Microbiology 06/05/23 14:05 Interface Orders Group A Streptococcus Rapid Screen - Final 06/01/23 18:10 Blood Culture (Wb) #2 - Anticubital Right Blood Culture - Final No growth in 5 days. 06/01/23 18:10 Blood Culture (Wb) - Venous Blood Culture - Final No growth in 5 days. 06/01/23 23:23 Mucosa - Nasopharyngeal Respiratory Panel (PCR) - Final 06/01/23 23:23 Mucosa - Nasopharyngeal Coronavirus COVID-19 PCR - Final 06/01/23 18:00 Nasal Secretion SARS-CoV-2 & FLU Antigen (Rapid) - Final Physical Exam Const alert and no apparent distress HEENT head/scalp atraumatic and moist oral mucous membranes Resp normal respiratory effort, no retractions, no use of accessory muscles and clear to auscultation bilaterally Cardio regular rate, regular rhythm, S1 normal heart sound and S2 normal heart sound GI normal to inspection, nondistended, normoactive bowel sounds, soft to palpation, non-tender and non-distended Neuro oriented x3 Assessment & Plan Assessment/Plan (1) Acute hypoxemic respiratory failure: PLAN: Acute hypoxic respiratory failure due to undiagnosed chronic lung disease, favor chronic pulmonary fibrosis with a possible overlap of COPD with paroxysms of cough-patient will remain on aerosol treatments, continue present treatment with bronchodilators and inhaled corticosteroids, patient most likely will need set up for home oxygen when she goes home, she will need to follow-up with pulmonary medicine as an outpatient. 06/05: Yesterday patient was started on codeine/guaifenesin but patient did not take it, stated gets itching with codeine but she is on hydrocodone scheduled and as needed and she is on scheduled prednisone and IV Solu-Medrol as needed. Advised aggressive incentive spirometry, Mucinex DM as decongestant. She is desaturating even on 10 L of mass therefore advised Airvo. Earlier school adjustment counselor was consulted 06/06: IV Solu-Medrol started. Continue DuoNeb nebulization, patient able to take Mucinex. Continue cough medication, decongestant, incentive spirometry and Airvo. Pulmonary follow-up requested. Palliative care requested by patient's daughter 06/07: Pulmonary follow-up reviewed and appreciated. I agree with IV Solu-Medrol and needs prolonged prednisone in the outpatient setting until follows in clinic for further PFT evaluation.2 dosages of IV Lasix 20 mg twice daily with holding parameter. Hold HCTZ as patient is on Lasix. Normal right ventricular systolic function. 06/08: Patient on Airvo, changed to high flow oxygen 5 L. HCTZ from tomorrow AM. BP 99 systolic, BUN increased to 45 from 29 therefore hold for further Lasix. (2) Acute non-ST elevation myocardial infarction (NSTEMI): PLAN: Non-STEMI with eccentric mid segment 70 to 80% right coronary artery and nonocclusive coronary disease in the left main, left anterior descending artery, and the circumflex artery. s/p PCI to mid RCA Continue aspirin, Brilinta, metoprolol 25 mg twice daily, losartan 50 mg daily, HCTZ 25 mg daily and atorvastatin 40 mg daily. 06/06: BP lower side but SBP still more than 90 average. IV fluid Ringer lactate 1 L bolus. Hold antihypertensive medications. Later on that day blood pressure improved 109/57. Repeat hemoglobin 11.6 g. Platelet count 311,000. 06/07: Echo shows EF 55 to 60%. No significant valvular abnormality reported. Blood pressure is better than yesterday. 06/08: Continue above medications. PLAN: Plan Chronic conditions: pulmonary fibrosis/possible COPD/interstitial lung disease-patient has paroxysms of cough that makes her very short of breath and tachypneic. His central cough is not predominantly from URI but respiratory panel, COVID-19 PCR are negative. Patient seen by pulm neurology. CTA chest shows bibasilar subpleural interstitial septal thickening and groundglass opacities representing evolving interstitial lung disease. Autoimmune panel was ordered and follow-up with pulmonary medicine after 2 weeks to get baseline PFT. Incentive spirometry. Diuresis as per tolerated. degenerative disc disease lumbar spine with chronic pain: PT and OT. psoriatic arthritis-patient is on methotrexate chronically, this will be continued here. Patient follows outside art coordinator for psoriatic arthritis. VTE prophylaxis: LMWH Disposition: TBD. Hopefully monitor 1-2 more days. Charges/Coding Visit Charges Inpatient E&M: 88525 Subs Hosp L2
[2023-06-09] MEDS: HYDROcodone Bitartrate/Apap 5/325 Tablet PO ×2 (09:50→22:23)
[2023-06-09] MEDS: Methylprednisolone Sod Succ 40 MG/ML VIAL IV ×2 (09:51→22:22)
[2023-06-09] MEDS: TICAGRELOR 90 MG TABLET PO ×2 (09:51→22:21)
[2023-06-09] MEDS: Losartan Potassium 50 MG Tablet PO (09:52)
[2023-06-09] MEDS: guaiFENesin/D-Methorphan TAB.SR.12H 1 TABLET PO ×2 (09:53→22:23)
--- NOTE | 2023-06-09 10:33 | PN.CC_ITS ---
Assessment & Plan Assessment/Plan (1) Acute respiratory failure with hypoxia: (2) Acute non-ST elevation myocardial infarction (NSTEMI): (3) Volume overload: QUALIFIERS: Hypervolemia type: other Qualified Code(s): E87.79 - Other fluid overload (4) Psoriatic arthritis: PLAN: Plan Assessment * Acute hypoxic respiratory failure worsening likely secondary to underlying ILD exacerbation Vs MTX lung toxicity * NSTEMI s/p PCI * Volume overload * Obesity BMI 36 * Former smoker * History of psoriatic arthritis on MTX and diego Plan Evaluated patient's previous CT scan in [address] during this admission. Patient had signs of fibrosis at the bases which appear to be worsening. She will need outpatient PFTs and further pulmonary work-up including high resolution CT and may possibly benefit antifibrotics. MTX lung toxicity is a possibility although less likely as most pts present within a year of therapy, and her CT is more consistent with fibrotic process. Her O2 requirements continue to improve. She will receive solumedrol 40 bid today and will switch to PO prednisone tomorrow. I discussed with her that she will need to remain on prednisone PO until she's evaluated in the pulmonary clinic. I also instructed her to update her PCP and numberer and wirer of prednisone. We discussed the risks of prednisone including GI/DM/HTN and weight gain. She is aware. Kidney function is slightly worse. Hold OLIVIA She is not on home O2. Wean oxygen as tolerated. She will likely require home oxygen eval when ready for DC Echocardiogram findings on 06/02 reviewed. No signs of right heart failure at this time. Pulmonary will sign off. Please reach out with questions or concerns Subjective Subjective No acute events. Reports feeling well. She was able to sit in the chair yesterday. Objective Data Objective Data Vital Signs: Vital Signs Temp Pulse Resp BP Pulse Ox O2 Del Method O2 Flow Rate 36.6 C 57 L 20 H 106/52 L 96 Nasal Cannula 4 06/09/23 07:53 06/09/23 09:53 06/09/23 07:53 06/09/23 07:53 06/09/23 07:53 06/09/23 07:53 06/09/23 07:53 FiO2 70 06/07/23 10:04 Oxygen Flow Rate (L/min) 4 Oxygen Delivery Method Nasal Cannula Weight: 96.8 kg Body Mass Index (BMI) 36.6 Intake & Output: Intake and Output for Last 24 Hours 06/07/23 06/08/23 06/09/23 23:59 23:59 23:59 Intake Total 650 / 850 870 / 1020 250 / 250 Output Total 1700 / 2275 775 / 775 250 / 250 Balance -1050 / -1425 95 / 245 0 / 0 Lab / Micro Data 06/08/23 05:55 06/09/23 04:55 Labs: Laboratory Results - last 24 hr 06/09/23 04:55: Sodium 136, Potassium 4.4, Chloride 102, Carbon Dioxide 28.0, Anion Gap 6, BUN 50 H, Creatinine 1.05 H, Estim Creat Clear Calc 42.44, Est GFR (MDRD) Af Amer 66, Est GFR (MDRD) Non-Af 55 L, BUN/Creatinine Ratio 47.6 H, Glucose 159 H, Calcium 8.9 Micro: Microbiology 06/05/23 14:05 Interface Orders Group A Streptococcus Rapid Screen - Final 06/01/23 18:10 Blood Culture (Wb) #2 - Anticubital Right Blood Culture - Final No growth in 5 days. 06/01/23 18:10 Blood Culture (Wb) - Venous Blood Culture - Final No growth in 5 days. 06/01/23 23:23 Mucosa - Nasopharyngeal Respiratory Panel (PCR) - Final 06/01/23 23:23 Mucosa - Nasopharyngeal Coronavirus COVID-19 PCR - Final 06/01/23 18:00 Nasal Secretion SARS-CoV-2 & FLU Antigen (Rapid) - Final Physical Exam Const oriented x3 and no apparent distress General Appearance: cooperative HEENT normocephalic Eyes EOMs intact bilaterally Resp no use of accessory muscles Effort and Inspection: able to speak in complete sentences Auscultation: rales and rhonchi Cardio regular rate and regular rhythm GI soft to palpation and non-tender Extremity no clubbing, cyanosis or edema Neuro oriented x3, moves all extremities and no focal motor deficits Psych mental status grossly normal, thought process normal and cooperative Charges/Coding Visit Charges Inpatient E&M: 90543 Subs Hosp L3
[2023-06-09] MEDS: Ipratropium/Albuterol Sulfate 3 ML AMPUL.NEB INHALATION ×3 (10:53→19:41)
--- NOTE | 2023-06-09 12:04 | CASEMGMT ---
Social Work SW spoke w/pt earlier about her preference, [facility] vs [facility]. Pt states would want rehab actually, and if they cannot take her, [facility] would be her next choice. SW did explain is not sure if pt would qualify for rehab, will speak w/physician. SW spoke w/physician, rehab is not the right level of care for pt. SW let pt know, informed her we will move forward with the referral to [facility]. Pt agreeable. meeting/event planner Tomasa will have [facility] start precert when appropriate. TAM Vences
[2023-06-09] MEDS: Polyethylene Glycol 3350 17 GM PACKET PO (13:16)
--- NOTE | 2023-06-09 14:37 | CASEMGMT ---
Discharge Planning Updates sent to [facility] via [employer]. Asked for precert to be started. Updated [facility] to disregard referral. Tomasa Johns, Discharge Planning Asst.
[2023-06-09] MEDS: Atorvastatin Calcium 40 MG Tablet PO (22:21)
[2023-06-09] MEDS: Pantoprazole Sodium 40 MG Tablet PO (22:23)
[2023-06-09] MEDS: tiZANidine HCl 2 MG Tablet 4 MG PO (22:24)
[2023-06-09] MEDS: Metoprolol Tartrate 25 MG Tablet PO (22:32)
[2023-06-09] MEDS: Oxymetazoline 0.05% 1 SPRAY SPRAY.BTL 2 SPRAY NASAL (22:37)
[2023-06-09] MEDS: Sodium Chloride 0.65% 1 SPRAY SPRAY.BTL 2 SPRAY NASAL (22:38)
[2023-06-10] VITALS (20 sets, daily range): BP systolic 91–126; BP diastolic 36–79; PULSE 56–77; RESP 18–26; TEMP 36–36.7; O2SAT 88–98; BMI 37.3
[2023-06-10 05:09] LABS: Absolute Lymphocyte Count 0.47 X10^3/uL (0.83-4.51); Absolute Neutrophil Count 9.8 X10^3/uL (2.0-7.7); Basophil# 0.02 X10^3/uL; Basophil% 0.2 % (0-1); Eosinophil# 0.02 X10^3/uL; Eosinophils% 0.2 % (0-5); Hematocrit 37.3 % (37-47); Hemoglobin 11.8 g/dL (12.0-15.0); Lymphocyte # 0.47 X10^3/ul (0.83-4.51); Lymphocyte % 4.3 % (19-41); Mean Corp Hgb Conc 31.6 g/dL (32-36); Mean Corpuscular Hgb 32.6 pg (27.0-32.0); Monocyte% 4.6 % (0-10); NRBC Flagged by Analyzer 0 % (0-5); Neutrophil # 9.79 X10^3/uL (2.7-7.7); Neutrophil % 89.5 % (47-70); POSITIVE DIFFERENTIAL YES; Platelet Count 419 K/mm3 (150-450); RBC Distribution Width SD 55.8 fl (35.1-43.9); Red Blood Count 3.62 M/mm3 (4.2-5.4); White Blood Count 10.9 K/mm3 (4.4-11.0)
[2023-06-10 05:16] LABS: Differential Indicated SCAN CRITERIA MET
[2023-06-10] MEDS: Benzonatate 100 MG Capsule 200 MG PO ×3 (05:33→22:03)
[2023-06-10] MEDS: Enoxaparin 40 MG/0.4 ML Syringe SC (05:36)
[2023-06-10 05:44] LABS: Anion Gap 2 (5-15); BUN 47 mg/dL (7-18); BUN/Creat Ratio 60.4 RATIO (10-20); Calcium,Total 8.8 mg/dL (8.5-10.1); Chloride 104 mmol/L (98-107); Creatinine, Serum 0.78 mg/dL (0.55-1.02); EST Glomerular Filtration Rate 78 mL/min (>60); Est Glom Filt Rate - Afr Amer 94 mL/min (>60); Estimated Creatinine Clearance 44.56 ml/min; Glucose 156 mg/dL (74-106); Potassium 4.7 mmol/L (3.5-5.1); Sodium Level 137 mmol/L (136-145)
[2023-06-10 06:05] LABS: Differential Comment SCANNED
[2023-06-10] MEDS: Ipratropium/Albuterol Sulfate 3 ML AMPUL.NEB INHALATION ×4 (07:34→19:39)
--- NOTE | 2023-06-10 07:41 | CASEMGMT ---
Received a message via [employer] that patient was approved for [facility]. Flores Coats MEDICAL RECORD ASSISTANT [place]
--- NOTE | 2023-06-10 08:04 | PN.HOSP_ITS ---
Reason for Visit Reason for Visit: Diagnoses Fluid overload, unspecified (06/01/23) Other fluid overload (06/01/23) Polyneuropathy, unspecified (06/01/23) Essential (primary) hypertension (06/01/23) Non-ST elevation (NSTEMI) myocardial infarction (06/01/23) Acute respiratory failure with hypoxia (06/01/23) Arthropathic psoriasis, unspecified (06/01/23) Dyspnea, unspecified (06/01/23) Subjective Subjective Does not feel well. Objective Data Objective Data Vital Signs: Vital Signs Temp Pulse Resp BP Pulse Ox O2 Del Method O2 Flow Rate 36.7 C 59 L 25 H 104/41 L 91 Nasal Cannula 5 06/10/23 05:26 06/10/23 05:26 06/10/23 05:26 06/10/23 05:26 06/10/23 08:03 06/10/23 08:03 06/10/23 08:03 FiO2 70 06/07/23 10:04 Oxygen Flow Rate (L/min) 5 Oxygen Delivery Method Nasal Cannula Weight: 98.5 kg Body Mass Index (BMI) 37.3 Intake & Output: Intake and Output for Last 24 Hours 06/08/23 06/09/23 06/10/23 23:59 23:59 23:59 Intake Total 870 / 1020 640 / 640 Output Total 775 / 775 650 / 650 250 / 250 Balance 95 / 245 -10 / -10 -250 / -250 Lab / Micro Data 06/10/23 04:31 06/10/23 04:31 Labs: Laboratory Results - last 24 hr 06/10/23 04:31: WBC 10.9, RBC 3.62 L, Hgb 11.8 L, Hct 37.3, MCV 103.0 H, MCH 32.6 H, MCHC 31.6 L, RDW Std Deviation 55.8 H, RDW Coeff of Sonya 15.0 H, Plt Count 419, MPV 11.0, Immature Gran % (Auto) 1.200 H, Neut % (Auto) 89.5 H, Lymph % (Auto) 4.3 L, Blaine % (Auto) 4.6, Eos % (Auto) 0.2, Baso % (Auto) 0.2, Absolute Neuts (auto) 9.8 H, Absolute Lymphs (auto) 0.47 L, Nucleated RBC % 0, Differential Comment SCANNED, Sodium 137, Potassium 4.7, Chloride 104, Carbon Dioxide 31.0, Anion Gap 2 L, BUN 47 H, Creatinine 0.78, Estim Creat Clear Calc 44.56, Est GFR (MDRD) Af Amer 94, Est GFR (MDRD) Non-Af 78, BUN/Creatinine Ratio 60.4 H, Glucose 156 H, Calcium 8.8 Micro: Microbiology 06/05/23 14:05 Interface Orders Group A Streptococcus Rapid Screen - Final 06/01/23 18:10 Blood Culture (Wb) #2 - Anticubital Right Blood Culture - Final No growth in 5 days. 06/01/23 18:10 Blood Culture (Wb) - Venous Blood Culture - Final No growth in 5 days. 06/01/23 23:23 Mucosa - Nasopharyngeal Respiratory Panel (PCR) - Final 06/01/23 23:23 Mucosa - Nasopharyngeal Coronavirus COVID-19 PCR - Final 06/01/23 18:00 Nasal Secretion SARS-CoV-2 & FLU Antigen (Rapid) - Final Physical Exam Const alert and no apparent distress HEENT head/scalp atraumatic and moist oral mucous membranes Eyes PERRL and EOMs intact bilaterally Neck no lymphadenopathy Resp Resp Narrative: bilateral crackles. Cardio regular rate, regular rhythm, S1 normal heart sound and S2 normal heart sound GI normal to inspection, nondistended, normoactive bowel sounds, soft to palpation, non-tender and non-distended Extremity General Extremity: edema bilateral lower extremity Details: moderate Assessment & Plan Assessment/Plan (1) Acute hypoxemic respiratory failure: PLAN: Acute hypoxic respiratory failure due to undiagnosed chronic lung disease, favor chronic pulmonary fibrosis with a possible overlap of COPD with paroxysms of cough-patient will remain on aerosol treatments, continue present treatment with bronchodilators and inhaled corticosteroids, patient most likely will need set up for home oxygen when she goes home, she will need to follow-up with pulmonary medicine as an outpatient. 06/05: Yesterday patient was started on codeine/guaifenesin but patient did not take it, stated gets itching with codeine but she is on hydrocodone scheduled and as needed and she is on scheduled prednisone and IV Solu-Medrol as needed. Advised aggressive incentive spirometry, Mucinex DM as decongestant. She is desaturating even on 10 L of mass therefore advised Airvo. Earlier cash surrender calculator was consulted 06/06: IV Solu-Medrol started. Continue DuoNeb nebulization, patient able to take Mucinex. Continue cough medication, decongestant, incentive spirometry and Airvo. Pulmonary follow-up requested. Palliative care requested by patient's daughter 06/07: Pulmonary follow-up reviewed and appreciated. I agree with IV Solu-Medrol and needs prolonged prednisone in the outpatient setting until follows in clinic for further PFT evaluation.2 dosages of IV Lasix 20 mg twice daily with holding parameter. Hold HCTZ as patient is on Lasix. Normal right ventricular systolic function. 06/08: Patient on Airvo, changed to high flow oxygen 5 L. HCTZ from tomorrow AM. BP 99 systolic, BUN increased to 45 from 29 therefore hold for further Lasix. 06/10: weight is up from admission. Still on high-flow oxygen. Add IV furosemide. (2) Acute non-ST elevation myocardial infarction (NSTEMI): PLAN: Non-STEMI with eccentric mid segment 70 to 80% right coronary artery and nonocclusive coronary disease in the left main, left anterior descending artery, and the circumflex artery. s/p PCI to mid RCA Continue aspirin, Brilinta, metoprolol 25 mg twice daily, losartan 50 mg daily, HCTZ 25 mg daily and atorvastatin 40 mg daily. 06/06: BP lower side but SBP still more than 90 average. IV fluid Ringer lactate 1 L bolus. Hold antihypertensive medications. Later on that day blood pressure improved 109/57. Repeat hemoglobin 11.6 g. Platelet count 311,000. 06/07: Echo shows EF 55 to 60%. No significant valvular abnormality reported. Blood pressure is better than yesterday. PLAN: Plan Chronic conditions: * pulmonary fibrosis/possible COPD/interstitial lung disease-patient has pa roxysms of cough that makes her very short of breath and tachypneic. His central cough is not predominantly from URI but respiratory panel, COVID-19 PCR are negative. Patient seen by pulm. CTA chest shows bibasilar subpleural interstitial septal thickening and groundglass opacities representing evolving interstitial lung disease. Autoimmune panel was ordered and follow-up with pulmonary medicine after 2 weeks to get baseline PFT. Incentive spirometry. 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 * psoriatic arthritis-patient is on methotrexate chronically, this will be continued here. Patient follows outside rim buster for psoriatic arthritis. VTE prophylaxis: LMWH Disposition: TBD. Hopefully monitor 1-2 more days. Charges/Coding Visit Charges Inpatient E&M: 67510 Subs Hosp L2
[2023-06-10] MEDS: TICAGRELOR 90 MG TABLET PO ×2 (10:54→22:01)
[2023-06-10] MEDS: Folic Acid 1 MG Tablet PO (10:54)
[2023-06-10] MEDS: Aspirin 81 MG TAB.CHEW PO (10:54)
[2023-06-10] MEDS: Metoprolol Tartrate 25 MG Tablet PO ×2 (10:55→22:02)
[2023-06-10] MEDS: Polyethylene Glycol 3350 17 GM PACKET PO (10:55)
[2023-06-10] MEDS: guaiFENesin/D-Methorphan TAB.SR.12H 1 TABLET PO ×2 (10:55→22:01)
[2023-06-10] MEDS: predniSONE 20 MG Tablet 40 MG PO (10:57)
[2023-06-10] MEDS: HYDROcodone Bitartrate/Apap 5/325 Tablet PO ×2 (11:01→22:13)
[2023-06-10] MEDS: Furosemide 40 MG/4 ML Vial IV ×2 (11:04→18:51)
--- NOTE | 2023-06-10 13:04 | CASEMGMT ---
SW notified [facility] that patient is not ready for discharge. Patient's pre-cert is good until the . Flores MORTENSEN
[2023-06-10] MEDS: 0.9% Saline Lock 10 ML Syringe IV ×2 (18:51→22:20)
[2023-06-10] MEDS: Atorvastatin Calcium 40 MG Tablet PO (22:01)
[2023-06-10] MEDS: Pantoprazole Sodium 40 MG Tablet PO (22:02)
[2023-06-10] MEDS: Sodium Chloride 0.65% 1 SPRAY SPRAY.BTL 2 SPRAY NASAL (22:04)
[2023-06-10] MEDS: tiZANidine HCl 2 MG Tablet 4 MG PO (22:14)
[2023-06-11] VITALS (14 sets, daily range): BP systolic 118–147; BP diastolic 62–87; PULSE 53–66; RESP 16–28; TEMP 36.4–36.7; O2SAT 90–99; BMI 36.1
[2023-06-11] MEDS: Enoxaparin 40 MG/0.4 ML Syringe SC (05:39)
[2023-06-11] MEDS: Benzonatate 100 MG Capsule 200 MG PO ×3 (05:39→21:05)
[2023-06-11] MEDS: 0.9% Saline Lock 10 ML Syringe IV ×2 (05:39→16:51)
[2023-06-11] MEDS: guaiFENesin/D-Methorphan TAB.SR.12H 1 TABLET PO ×2 (05:40→16:50)
[2023-06-11] MEDS: guaiFENesin/Codeine 5 ML UDC 10 ML PO ×3 (05:47→16:53)
[2023-06-11] MEDS: Ipratropium/Albuterol Sulfate 3 ML AMPUL.NEB INHALATION ×3 (07:26→19:45)
[2023-06-11] MEDS: predniSONE 20 MG Tablet 40 MG PO (07:58)
[2023-06-11] MEDS: Folic Acid 1 MG Tablet PO (07:59)
[2023-06-11] MEDS: Aspirin 81 MG TAB.CHEW PO (07:59)
[2023-06-11] MEDS: Miconazole Nitrate 43 GM Bottle 1 APPLIC TOPICAL ×2 (08:15→21:07)
--- NOTE | 2023-06-11 08:15 | PN.HOSP_ITS ---
Reason for Visit Reason for Visit: Diagnoses Fluid overload, unspecified (06/01/23) Other fluid overload (06/01/23) Polyneuropathy, unspecified (06/01/23) Essential (primary) hypertension (06/01/23) Non-ST elevation (NSTEMI) myocardial infarction (06/01/23) Acute respiratory failure with hypoxia (06/01/23) Arthropathic psoriasis, unspecified (06/01/23) Dyspnea, unspecified (06/01/23) Subjective Subjective Still with SIDDIQI. Objective Data Objective Data Vital Signs: Vital Signs Temp Pulse Resp BP Pulse Ox O2 Del Method O2 Flow Rate 36.4 C L 58 L 20 H 119/62 90 Nasal Cannula 4 06/11/23 08:00 06/11/23 08:00 06/11/23 08:00 06/11/23 08:00 06/11/23 08:00 06/11/23 08:00 06/11/23 08:00 FiO2 70 06/07/23 10:04 Oxygen Flow Rate (L/min) 4 Oxygen Delivery Method Nasal Cannula Weight: 95.4 kg Body Mass Index (BMI) 36.1 Intake & Output: Intake and Output for Last 24 Hours 06/09/23 06/10/23 06/11/23 23:59 23:59 23:59 Intake Total 640 / 640 760 / 760 400 / 400 Output Total 650 / 650 1950 / 3000 1050 / 1050 Balance -10 / -10 -1190 / -2240 -650 / -650 Lab / Micro Data 06/10/23 04:31 06/10/23 04:31 Micro: Microbiology 06/05/23 14:05 Interface Orders Group A Streptococcus Rapid Screen - Final 06/01/23 18:10 Blood Culture (Wb) #2 - Anticubital Right Blood Culture - Final No growth in 5 days. 06/01/23 18:10 Blood Culture (Wb) - Venous Blood Culture - Final No growth in 5 days. 06/01/23 23:23 Mucosa - Nasopharyngeal Respiratory Panel (PCR) - Final 06/01/23 23:23 Mucosa - Nasopharyngeal Coronavirus COVID-19 PCR - Final 06/01/23 18:00 Nasal Secretion SARS-CoV-2 & FLU Antigen (Rapid) - Final Physical Exam Const alert and no apparent distress HEENT head/scalp atraumatic and moist oral mucous membranes Resp normal respiratory effort and no retractions Resp Narrative: bilateral crackles. more prominent in the bases. Cardio regular rate, regular rhythm, S1 normal heart sound and S2 normal heart sound Extremity normal to inspection Neuro Sensorium / Orientation: awake and alert Assessment & Plan Assessment/Plan (1) Acute hypoxemic respiratory failure: PLAN: Acute hypoxic respiratory failure due to undiagnosed chronic lung disease, favor chronic pulmonary fibrosis with a possible overlap of COPD with paroxysms of cough-patient will remain on aerosol treatments, continue present treatment with bronchodilators and inhaled corticosteroids, patient most likely will need set up for home oxygen when she goes home, she will need to follow-up with pulmonary medicine as an outpatient. 06/05: Yesterday patient was started on codeine/guaifenesin but patient did not take it, stated gets itching with codeine but she is on hydrocodone scheduled and as needed and she is on scheduled prednisone and IV Solu-Medrol as needed. Advised aggressive incentive spirometry, Mucinex DM as decongestant. She is desaturating even on 10 L of mass therefore advised Airvo. Earlier software installation engineer was consulted 06/06: IV Solu-Medrol started. Continue DuoNeb nebulization, patient able to take Mucinex. Continue cough medication, decongestant, incentive spirometry and Airvo. Pulmonary follow-up requested. Palliative care requested by patient's daughter 06/07: Pulmonary follow-up reviewed and appreciated. I agree with IV Solu-Medrol and needs prolonged prednisone in the outpatient setting until follows in clinic for further PFT evaluation.2 dosages of IV Lasix 20 mg twice daily with holding parameter. Hold HCTZ as patient is on Lasix. Normal right ventricular systolic function. 06/08: Patient on Airvo, changed to high flow oxygen 5 L. HCTZ from tomorrow AM. BP 99 systolic, BUN increased to 45 from 29 therefore hold for further Lasix. 06/10: weight is up from admission. Still on high-flow oxygen. Add IV furosemide. 06/11: Weight down 3kg with diuresis. Still symptomatic. Will continue with IV furosemide. (2) Acute non-ST elevation myocardial infarction (NSTEMI): PLAN: Non-STEMI with eccentric mid segment 70 to 80% right coronary artery and nonocclusive coronary disease in the left main, left anterior descending artery, and the circumflex artery. s/p PCI to mid RCA Continue aspirin, Brilinta, metoprolol 25 mg twice daily, losartan 50 mg daily, HCTZ 25 mg daily and atorvastatin 40 mg daily. Echo shows EF 55 to 60%. No significant valvular abnormality reported. PLAN: Plan Chronic conditions: * pulmonary fibrosis/possible COPD/interstitial lung disease-patient has paroxysms of cough that makes her very short of breath and tachypneic. His central cough is not predominantly from URI but respiratory panel, COVID-19 PCR are negative. Patient seen by pulm. CTA chest shows bibasilar subpleural interstitial septal thickening and groundglass opacities representing evolving interstitial lung disease. Autoimmune panel was ordered and follow-up with pulmonary medicine after 2 weeks to get baseline PFT. Incentive spirometry. 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 * psoriatic arthritis-patient is on methotrexate chronically, this will be continued here. Patient follows outside quarrying manager for psoriatic arthritis. VTE prophylaxis: LMWH Disposition: TBD. Hopefully monitor 1-2 more days. Pt's insurance preauthorization will 06/12. If she is not discharged then, it will need resubmitted. Charges/Coding Visit Charges Inpatient E&M: 71514 Subs Hosp L2
[2023-06-11] MEDS: HYDROcodone Bitartrate/Apap 5/325 Tablet PO ×2 (10:03→21:05)
[2023-06-11] MEDS: TICAGRELOR 90 MG TABLET PO ×2 (10:03→21:05)
[2023-06-11] MEDS: Furosemide 40 MG/4 ML Vial IV ×2 (10:03→16:51)
[2023-06-11] MEDS: Polyethylene Glycol 3350 17 GM PACKET PO (10:04)
[2023-06-11] MEDS: Metoprolol Tartrate 25 MG Tablet PO ×2 (10:19→21:06)
--- NOTE | 2023-06-11 10:30 | CASEMGMT ---
Discharge Planning Updated [facility] via [facility]port that patient will not discharge today. Patients precert is good until 06/12/23 @ 11:59p. Tomasa Johns, Discharge Planning Asst.
[2023-06-11] MEDS: Pantoprazole Sodium 40 MG Tablet PO (21:05)
[2023-06-11] MEDS: tiZANidine HCl 2 MG Tablet 4 MG PO (21:05)
[2023-06-11] MEDS: Atorvastatin Calcium 40 MG Tablet PO (21:05)
[2023-06-12] VITALS (16 sets, daily range): BP systolic 113–141; BP diastolic 53–84; PULSE 56–79; RESP 16–24; TEMP 36.4–36.8; O2SAT 92–99; BMI 35.8
[2023-06-12] MEDS: Enoxaparin 40 MG/0.4 ML Syringe SC (05:35)
[2023-06-12] MEDS: guaiFENesin/Codeine 5 ML UDC 10 ML PO ×4 (05:36→20:38)
[2023-06-12] MEDS: guaiFENesin/D-Methorphan TAB.SR.12H 1 TABLET PO ×2 (05:36→16:24)
[2023-06-12] MEDS: Benzonatate 100 MG Capsule 200 MG PO ×3 (05:36→20:37)
[2023-06-12] MEDS: Ipratropium/Albuterol Sulfate 3 ML AMPUL.NEB INHALATION ×4 (07:26→20:09)
--- NOTE | 2023-06-12 08:02 | PN.HOSP_ITS ---
Reason for Visit Reason for Visit: Diagnoses Fluid overload, unspecified (06/01/23) Other fluid overload (06/01/23) Polyneuropathy, unspecified (06/01/23) Essential (primary) hypertension (06/01/23) Non-ST elevation (NSTEMI) myocardial infarction (06/01/23) Acute respiratory failure with hypoxia (06/01/23) Arthropathic psoriasis, unspecified (06/01/23) Dyspnea, unspecified (06/01/23) Objective Data Objective Data Vital Signs: Vital Signs Temp Pulse Resp BP Pulse Ox O2 Del Method O2 Flow Rate 36.6 C 62 24 H 119/63 96 Nasal Cannula 4 06/11/23 21:00 06/11/23 21:06 06/11/23 21:00 06/11/23 21:06 06/11/23 21:00 06/11/23 21:00 06/11/23 21:00 FiO2 70 06/07/23 10:04 Oxygen Flow Rate (L/min) 4 Oxygen Delivery Method Nasal Cannula Weight: 94.7 kg Body Mass Index (BMI) 35.8 Intake & Output: Intake and Output for Last 24 Hours 06/10/23 06/11/23 06/12/23 23:59 23:59 23:59 Intake Total 760 / 760 740 / 980 240 / 240 Output Total 1950 / 3000 1050 / 2100 1400 / 1400 Balance -1190 / -2240 -310 / -1120 -1160 / -1160 Lab / Micro Data 06/10/23 04:31 06/10/23 04:31 Micro: Microbiology 06/05/23 14:05 Interface Orders Group A Streptococcus Rapid Screen - Final 06/01/23 18:10 Blood Culture (Wb) #2 - Anticubital Right Blood Culture - Final No growth in 5 days. 06/01/23 18:10 Blood Culture (Wb) - Venous Blood Culture - Final No growth in 5 days. 06/01/23 23:23 Mucosa - Nasopharyngeal Respiratory Panel (PCR) - Final 06/01/23 23:23 Mucosa - Nasopharyngeal Coronavirus COVID-19 PCR - Final 06/01/23 18:00 Nasal Secretion SARS-CoV-2 & FLU Antigen (Rapid) - Final Assessment & Plan Assessment/Plan (1) Acute hypoxemic respiratory failure: PLAN: Acute hypoxic respiratory failure due to undiagnosed chronic lung disease, favor chronic pulmonary fibrosis with a possible overlap of COPD with paroxysms of cough-patient will remain on aerosol treatments, continue present treatment with bronchodilators and inhaled corticosteroids, patient most likely will need set up for home oxygen when she goes home, she will need to follow-up with pulmonary medicine as an outpatient. 06/05: Yesterday patient was started on codeine/guaifenesin but patient did not take it, stated gets itching with codeine but she is on hydrocodone scheduled and as needed and she is on scheduled prednisone and IV Solu-Medrol as needed. Advised aggressive incentive spirometry, Mucinex DM as decongestant. She is desaturating even on 10 L of mass therefore advised Airvo. Earlier engineering inspection assistant was consulted 06/06: IV Solu-Medrol started. Continue DuoNeb nebulization, patient able to take Mucinex. Continue cough medication, decongestant, incentive spirometry and Airvo. Pulmonary follow-up requested. Palliative care requested by patient's daughter 06/07: Pulmonary follow-up reviewed and appreciated. I agree with IV Solu-Medrol and needs prolonged prednisone in the outpatient setting until follows in clinic for further PFT evaluation.2 dosages of IV Lasix 20 mg twice daily with holding parameter. Hold HCTZ as patient is on Lasix. Normal right ventricular systolic function. 06/08: Patient on Airvo, changed to high flow oxygen 5 L. HCTZ from tomorrow AM. BP 99 systolic, BUN increased to 45 from 29 therefore hold for further Lasix. 06/10: weight is up from admission. Still on high-flow oxygen. Add IV furosemide. 06/11: Weight down 3kg with diuresis. Still symptomatic. Will continue with IV furosemide. (2) Acute non-ST elevation myocardial infarction (NSTEMI): PLAN: Non-STEMI with eccentric mid segment 70 to 80% right coronary artery and nonocclusive coronary disease in the left main, left anterior descending artery, and the circumflex artery. s/p PCI to mid RCA Continue aspirin, Brilinta, metoprolol 25 mg twice daily, losartan 50 mg daily, HCTZ 25 mg daily and atorvastatin 40 mg daily. Echo shows EF 55 to 60%. No significant valvular abnormality reported. PLAN: Plan Chronic conditions: * pulmonary fibrosis/possible COPD/interstitial lung disease-patient has paroxysms of cough that makes her very short of breath and tachypneic. His central cough is not predominantly from URI but respiratory panel, COVID-19 PCR are negative. Patient seen by pulm. CTA chest shows bibasilar subpleural interstitial septal thickening and groundglass opacities representing evolving interstitial lung disease. Autoimmune panel was ordered and follow-up with pulmonary medicine after 2 weeks to get baseline PFT. Incentive spirometry. 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 * psoriatic arthritis-patient is on methotrexate chronically, this will be cont inued here. Patient follows outside archival records clerk for psoriatic arthritis. VTE prophylaxis: LMWH Disposition: TBD. Hopefully monitor 1-2 more days. Pt's insurance preauthorization will 06/12. If she is not discharged then, it will need resubmitted.
[2023-06-12] MEDS: Folic Acid 1 MG Tablet PO (09:16)
[2023-06-12] MEDS: Aspirin 81 MG TAB.CHEW PO (09:16)
[2023-06-12] MEDS: Furosemide 40 MG/4 ML Vial IV ×2 (09:17→16:22)
[2023-06-12] MEDS: TICAGRELOR 90 MG TABLET PO ×2 (09:17→20:37)
[2023-06-12] MEDS: Metoprolol Tartrate 25 MG Tablet PO ×2 (09:17→20:37)
[2023-06-12] MEDS: predniSONE 20 MG Tablet 40 MG PO (09:17)
[2023-06-12] MEDS: HYDROcodone Bitartrate/Apap 5/325 Tablet PO ×2 (09:18→20:38)
[2023-06-12] MEDS: Polyethylene Glycol 3350 17 GM PACKET PO (09:18)
[2023-06-12] MEDS: Miconazole Nitrate 43 GM Bottle 1 APPLIC TOPICAL ×2 (09:19→20:39)
[2023-06-12] MEDS: 0.9% Saline Lock 10 ML Syringe IV (09:24)
--- NOTE | 2023-06-12 14:39 | PN.HOSP_ITS ---
Reason for Visit Reason for Visit: Diagnoses Fluid overload, unspecified (06/01/23) Other fluid overload (06/01/23) Polyneuropathy, unspecified (06/01/23) Essential (primary) hypertension (06/01/23) Non-ST elevation (NSTEMI) myocardial infarction (06/01/23) Acute respiratory failure with hypoxia (06/01/23) Arthropathic psoriasis, unspecified (06/01/23) Dyspnea, unspecified (06/01/23) Subjective Subjective Was getting up with therapy and felt well, however, around 0300 today she had to go to the bathroom and when she came back she was very SOB and had to be placed on an oxygen mask. Objective Data Objective Data Vital Signs: Vital Signs Temp Pulse Resp BP Pulse Ox O2 Del Method O2 Flow Rate 36.5 C L 58 L 24 H 125/84 H 98 Nasal Cannula 4 06/12/23 14:08 06/12/23 14:08 06/12/23 14:08 06/12/23 14:08 06/12/23 14:08 06/12/23 14:08 06/12/23 14:08 FiO2 70 06/07/23 10:04 Oxygen Flow Rate (L/min) 4 Oxygen Delivery Method Nasal Cannula Weight: 94.7 kg Body Mass Index (BMI) 35.8 Intake & Output: Intake and Output for Last 24 Hours 06/10/23 06/11/23 06/12/23 23:59 23:59 23:59 Intake Total 760 / 760 740 / 980 240 / 240 Output Total 1950 / 3000 1050 / 2100 1400 / 1400 Balance -1190 / -2240 -310 / -1120 -1160 / -1160 Lab / Micro Data 06/10/23 04:31 06/10/23 04:31 Micro: Microbiology 06/05/23 14:05 Interface Orders Group A Streptococcus Rapid Screen - Final 06/01/23 18:10 Blood Culture (Wb) #2 - Anticubital Right Blood Culture - Final No growth in 5 days. 06/01/23 18:10 Blood Culture (Wb) - Venous Blood Culture - Final No growth in 5 days. 06/01/23 23:23 Mucosa - Nasopharyngeal Respiratory Panel (PCR) - Final 06/01/23 23:23 Mucosa - Nasopharyngeal Coronavirus COVID-19 PCR - Final 06/01/23 18:00 Nasal Secretion SARS-CoV-2 & FLU Antigen (Rapid) - Final Physical Exam Const alert and no apparent distress HEENT head/scalp atraumatic and moist oral mucous membranes Resp Resp Narrative: bibasilar crackles. Cardio regular rate, regular rhythm, S1 normal heart sound and S2 normal heart sound GI normal to inspection, nondistended, normoactive bowel sounds and soft to palpation Extremity General Extremity: edema bilateral lower extremity Details: mild Assessment & Plan Assessment/Plan (1) Acute hypoxemic respiratory failure: PLAN: Acute hypoxic respiratory failure due to undiagnosed chronic lung disease, favor chronic pulmonary fibrosis with a possible overlap of COPD with paroxysms of cough-patient will remain on aerosol treatments, continue present treatment with bronchodilators and inhaled corticosteroids, patient most likely will need set up for home oxygen when she goes home, she will need to follow-up with pulmonary medicine as an outpatient. 06/05: Yesterday patient was started on codeine/guaifenesin but patient did not take it, stated gets itching with codeine but she is on hydrocodone scheduled and as needed and she is on scheduled prednisone and IV Solu-Medrol as needed. Advised aggressive incentive spirometry, Mucinex DM as decongestant. She is desaturating even on 10 L of mass therefore advised Airvo. Earlier fabric worker foreman was consulted 06/06: IV Solu-Medrol started. Continue DuoNeb nebulization, patient able to take Mucinex. Continue cough medication, decongestant, incentive spirometry and Airvo. Pulmonary follow-up requested. Palliative care requested by patient's daughter 06/07: Pulmonary follow-up reviewed and appreciated. I agree with IV Solu-Medrol and needs prolonged prednisone in the outpatient setting until follows in clinic for further PFT evaluation.2 dosages of IV Lasix 20 mg twice daily with holding parameter. Hold HCTZ as patient is on Lasix. Normal right ventricular systolic function. 06/08: Patient on Airvo, changed to high flow oxygen 5 L. HCTZ from tomorrow AM. BP 99 systolic, BUN increased to 45 from 29 therefore hold for further Lasix. 06/10: weight is up from admission. Still on high-flow oxygen. Add IV furosemide. 06/11: Weight down 3kg with diuresis. Still symptomatic. Will continue with IV furosemide. (2) Acute non-ST elevation myocardial infarction (NSTEMI): PLAN: Non-STEMI with eccentric mid segment 70 to 80% right coronary artery and nonocclusive coronary disease in the left main, left anterior descending artery, and the circumflex artery. s/p PCI to mid RCA Continue aspirin, Brilinta, metoprolol 25 mg twice daily, losartan 50 mg daily, HCTZ 25 mg daily and atorvastatin 40 mg daily. Echo shows EF 55 to 60%. No significant valvular abnormality reported. PLAN: Plan Chronic conditions: * pulmonary fibrosis/possible COPD/interstitial lung disease-patient has paroxysms of cough that makes her very short of breath and tachypneic. His central cough is not predominantly from URI but respiratory panel, COVID-19 PCR are negative. Patient seen by pulm. CTA chest shows bibasilar subpleural interstitial septal thickening and groundglass opacities representing evolving interstitial lung disease. Autoimmune panel was ordered and follow-up with pulmonary medicine after 2 weeks to get baseline PFT. Incentive spirometry. 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 * psoriatic arthritis-patient is on methotrexate chronically, this will be continued here. Patient follows outside upset operator for psoriatic arthr itis. VTE prophylaxis: LMWH Disposition: TBD. Hopefully monitor 1-2 more days. Pt's insurance prea uthorization will 06/12. If she is not discharged then, it will need resubmitted. Charges/Coding Visit Charges Inpatient E&M: 29773 Subs Hosp L2
--- NOTE | 2023-06-12 15:51 | CASEMGMT ---
Discharge Planning Patients precert expires today. Updates sent to [facility] via [facility] to resubmit. Tomasa Johns, Discharge Planning Asst.
[2023-06-12] MEDS: BUPRENORPHINE 15 MCG/HR PATCH 1 EACH TD (16:22)
[2023-06-12] MEDS: tiZANidine HCl 2 MG Tablet 4 MG PO (20:37)
[2023-06-12] MEDS: Pantoprazole Sodium 40 MG Tablet PO (20:39)
[2023-06-12] MEDS: Atorvastatin Calcium 40 MG Tablet PO (20:40)
[2023-06-13] VITALS (11 sets, daily range): BP systolic 102–134; BP diastolic 63–75; PULSE 55–61; RESP 16–24; TEMP 35.9–36.7; O2SAT 85–98; BMI 35.9
[2023-06-13] MEDS: guaiFENesin/Codeine 5 ML UDC 10 ML PO ×2 (05:09→11:56)
[2023-06-13] MEDS: Enoxaparin 40 MG/0.4 ML Syringe SC (05:09)
[2023-06-13] MEDS: Benzonatate 100 MG Capsule 200 MG PO ×2 (05:10→14:38)
[2023-06-13] MEDS: guaiFENesin/D-Methorphan TAB.SR.12H 1 TABLET PO (05:10)
[2023-06-13] MEDS: Ipratropium/Albuterol Sulfate 3 ML AMPUL.NEB INHALATION ×3 (06:41→15:35)
[2023-06-13 06:43] LABS: Anion Gap 4 (5-15); BUN 46 mg/dL (7-18); BUN/Creat Ratio 54.8 RATIO (10-20); Calcium,Total 9.2 mg/dL (8.5-10.1); Chloride 98 mmol/L (98-107); Creatinine, Serum 0.84 mg/dL (0.55-1.02); EST Glomerular Filtration Rate 71 mL/min (>60); Est Glom Filt Rate - Afr Amer 86 mL/min (>60); Estimated Creatinine Clearance 53.04 ml/min; Glucose 117 mg/dL (74-106); Potassium 3.2 mmol/L (3.5-5.1); Sodium Level 137 mmol/L (136-145)
--- NOTE | 2023-06-13 08:17 | PN.HOSP_ITS ---
Reason for Visit Reason for Visit: Diagnoses Fluid overload, unspecified (06/01/23) Other fluid overload (06/01/23) Polyneuropathy, unspecified (06/01/23) Essential (primary) hypertension (06/01/23) Non-ST elevation (NSTEMI) myocardial infarction (06/01/23) Acute respiratory failure with hypoxia (06/01/23) Arthropathic psoriasis, unspecified (06/01/23) Dyspnea, unspecified (06/01/23) Subjective Subjective Still with shortness of breath. Objective Data Objective Data Vital Signs: Vital Signs Temp Pulse Resp BP Pulse Ox O2 Del Method O2 Flow Rate 36.7 C 61 18 102/63 95 Nasal Cannula 4 06/13/23 04:00 06/13/23 04:00 06/13/23 04:00 06/13/23 04:00 06/13/23 04:00 06/13/23 04:00 06/13/23 04:00 FiO2 70 06/07/23 10:04 Oxygen Flow Rate (L/min) 4 Oxygen Delivery Method Nasal Cannula Weight: 95.1 kg Body Mass Index (BMI) 35.9 Intake & Output: Intake and Output for Last 24 Hours 06/11/23 06/12/23 06/13/23 23:59 23:59 23:59 Intake Total 740 / 980 240 / 480 480 / 480 Output Total 1050 / 2100 2550 / 2900 600 / 600 Balance -310 / -1120 -2310 / -2420 -120 / -120 Lab / Micro Data 06/10/23 04:31 06/13/23 05:03 Labs: Laboratory Results - last 24 hr 06/13/23 05:03: Sodium 137, Potassium 3.2 L, Chloride 98, Carbon Dioxide 35.0 H, Anion Gap 4 L, BUN 46 H, Creatinine 0.84, Estim Creat Clear Calc 53.04, Est GFR (MDRD) Af Amer 86, Est GFR (MDRD) Non-Af 71, BUN/Creatinine Ratio 54.8 H, Glucose 117 H, Calcium 9.2 Micro: Microbiology 06/05/23 14:05 Interface Orders Group A Streptococcus Rapid Screen - Final 06/01/23 18:10 Blood Culture (Wb) #2 - Anticubital Right Blood Culture - Final No growth in 5 days. 06/01/23 18:10 Blood Culture (Wb) - Venous Blood Culture - Final No growth in 5 days. 06/01/23 23:23 Mucosa - Nasopharyngeal Respiratory Panel (PCR) - Final 06/01/23 23:23 Mucosa - Nasopharyngeal Coronavirus COVID-19 PCR - Final 06/01/23 18:00 Nasal Secretion SARS-CoV-2 & FLU Antigen (Rapid) - Final Physical Exam Const alert and no apparent distress Resp normal respiratory effort and no retractions Resp Narrative: coarse breath sounds. Cardio regular rate, regular rhythm, S1 normal heart sound and S2 normal heart sound GI normal to inspection, nondistended, normoactive bowel sounds Assessment & Plan Assessment/Plan (1) Acute hypoxemic respiratory failure: PLAN: Acute hypoxic respiratory failure due to undiagnosed chronic lung disease, favor chronic pulmonary fibrosis with a possible overlap of COPD with paroxysms of cough-patient will remain on aerosol treatments, continue present treatment with bronchodilators and inhaled corticosteroids, patient most likely will need set up for home oxygen when she goes home, she will need to follow-up with pulmonary medicine as an outpatient. 06/05: Yesterday patient was started on codeine/guaifenesin but patient did not take it, stated gets itching with codeine but she is on hydrocodone scheduled and as needed and she is on scheduled prednisone and IV Solu-Medrol as needed. Advised aggressive incentive spirometry, Mucinex DM as decongestant. She is desaturating even on 10 L of mass therefore advised Airvo. Earlier retail merchandising coordinator was consulted 06/06: IV Solu-Medrol started. Continue DuoNeb nebulization, patient able to take Mucinex. Continue cough medication, decongestant, incentive spirometry and Airvo. Pulmonary follow-up requested. Palliative care requested by patient's daughter 06/07: Pulmonary follow-up reviewed and appreciated. I agree with IV Solu-Medrol and needs prolonged prednisone in the outpatient setting until follows in clinic for further PFT evaluation.2 dosages of IV Lasix 20 mg twice daily with holding parameter. Hold HCTZ as patient is on Lasix. Normal right ventricular systolic function. 06/08: Patient on Airvo, changed to high flow oxygen 5 L. HCTZ from tomorrow AM. BP 99 systolic, BUN increased to 45 from 29 therefore hold for further Lasix. 06/10: weight is up from admission. Still on high-flow oxygen. Add IV furosemide. 06/11: Weight down 3kg with diuresis. Still symptomatic. Will continue with IV furosemide. (2) Acute non-ST elevation myocardial infarction (NSTEMI): PLAN: Non-STEMI with eccentric mid segment 70 to 80% right coronary artery and nonocclusive coronary disease in the left main, left anterior descending artery, and the circumflex artery. s/p PCI to mid RCA Continue aspirin, Brilinta, metoprolol 25 mg twice daily, losartan 50 mg daily, HCTZ 25 mg daily and atorvastatin 40 mg daily. Echo shows EF 55 to 60%. No significant valvular abnormality reported. PLAN: Plan Chronic conditions: * pulmonary fibrosis/possible COPD/interstitial lung disease-patient has paroxysms of cough that makes her very short of breath and tachypneic. His central cough is not predominantly from URI but respiratory panel, COVID-19 PCR are negative. Patient seen by pulm. CTA chest shows bibasilar subpleural interstitial septal thickening and groundglass opacities representing evolving interstitial lung disease. Autoimmune panel was ordered and follow-up with pulmonary medicine after 2 weeks to get baseline PFT. Incentive spirometry. 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 * psoriatic arthritis-patient is on methotrexate chronically, this will be continued here. Patient follows outside stockroom supervisor for psoriatic arthritis. VTE prophylaxis: LMWH Disposition: TBD. Hopefully to SNF soon pending oxygenation. Charges/Coding Visit Charges Inpatient E&M: 87125 Subs Hosp L2
[2023-06-13] MEDS: Miconazole Nitrate 43 GM Bottle 1 APPLIC TOPICAL (09:17)
[2023-06-13] MEDS: Furosemide 40 MG/4 ML Vial IV (09:18)
[2023-06-13] MEDS: Metoprolol Tartrate 25 MG Tablet PO (09:18)
[2023-06-13] MEDS: predniSONE 20 MG Tablet 40 MG PO (09:18)
[2023-06-13] MEDS: Folic Acid 1 MG Tablet PO (09:18)
[2023-06-13] MEDS: TICAGRELOR 90 MG TABLET PO (09:18)
[2023-06-13] MEDS: Aspirin 81 MG TAB.CHEW PO (09:18)
[2023-06-13] MEDS: HYDROcodone Bitartrate/Apap 5/325 Tablet PO (09:19)
[2023-06-13] MEDS: Polyethylene Glycol 3350 17 GM PACKET PO (09:19)
[2023-06-13] MEDS: 0.9% Saline Lock 10 ML Syringe IV (09:20)
[2023-06-13] MEDS: Potassium Chloride Oral Tablet 20 MEQ 40 MEQ PO (14:37)
--- NOTE | 2023-06-13 14:53 | PCM.TXEXTCAR ---
Diet Diet Order/Speech Therapy: 06/03/23 16:03 Diet: Cardiac - Heart Healthy Dietary Modifications:: Sodium Restricted Is pt able to select menu?: Yes Fluid restriction:: 1500 mL Routine Orders/Code Status O2 Liters per Minute: 4 Keep PO Greater than or Equal to (%): 90 Routine Lab Work: CBC and BMP Code Status: Full Code Wound(s) R Groin: Wound Type: Puncture R Wrist: Wound Type: Puncture Therapies Weight Bearing: Full weight bearing Physical Therapy: Eval and Treat Occupational Therapy: Eval and Treat Problem/Diagnosis (1) Acute hypoxemic respiratory failure: Status: Acute Code(s): J96.01 - Acute respiratory failure with hypoxia Plan: Acute hypoxic respiratory failure due to undiagnosed chronic lung disease, favor chronic pulmonary fibrosis with a possible overlap of COPD with paroxysms of cough-patient will remain on aerosol treatments, continue present treatment with bronchodilators and inhaled corticosteroids, patient most likely will need set up for home oxygen when she goes home, she will need to follow-up with pulmonary medicine as an outpatient. 06/05: Yesterday patient was started on codeine/guaifenesin but patient did not take it, stated gets itching with codeine but she is on hydrocodone scheduled and as needed and she is on scheduled prednisone and IV Solu-Medrol as needed. Advised aggressive incentive spirometry, Mucinex DM as decongestant. She is desaturating even on 10 L of mass therefore advised Airvo. Earlier music professionals was consulted 06/06: IV Solu-Medrol started. Continue DuoNeb nebulization, patient able to take Mucinex. Continue cough medication, decongestant, incentive spirometry and Airvo. Pulmonary follow-up requested. Palliative care requested by patient's daughter 06/07: Pulmonary follow-up reviewed and appreciated. I agree with IV Solu-Medrol and needs prolonged prednisone in the outpatient setting until follows in clinic for further PFT evaluation.2 dosages of IV Lasix 20 mg twice daily with holding parameter. Hold HCTZ as patient is on Lasix. Normal right ventricular systolic function. 06/08: Patient on Airvo, changed to high flow oxygen 5 L. HCTZ from tomorrow AM. BP 99 systolic, BUN increased to 45 from 29 therefore hold for further Lasix. 06/10: weight is up from admission. Still on high-flow oxygen. Add IV furosemide. 06/11: Weight down 3kg with diuresis. Still symptomatic. Will continue with IV furosemide. 06/13: ambulated and was 90% on 4l/m nc (2) Acute non-ST elevation myocardial infarction (NSTEMI): Status: Acute Code(s): I21.4 - Non-ST elevation (NSTEMI) myocardial infarction Plan: Non-STEMI with eccentric mid segment 70 to 80% right coronary artery and nonocclusive coronary disease in the left main, left anterior descending artery, and the circumflex artery. s/p PCI to mid RCA Continue aspirin, Brilinta, metoprolol 25 mg twice daily, losartan 50 mg daily, HCTZ 25 mg daily and atorvastatin 40 mg daily. Echo shows EF 55 to 60%. No significant valvular abnormality reported. Plan Chronic conditions: pulmonary fibrosis/possible COPD/interstitial lung disease-patient has paroxysms of cough that makes her very short of breath and tachypneic. His central cough is not predominantly from URI but respiratory panel, COVID-19 PCR are negative. Patient seen by pulm. CTA chest shows bibasilar subpleural interstitial septal thickening and groundglass opacities representing evolving interstitial lung disease. Autoimmune panel was ordered and follow-up with pulmonary medicine after 2 weeks to get baseline PFT. Incentive spirometry. degenerative disc disease lumbar spine with chronic pain: PT and OT. psoriatic arthritis-patient is on methotrexate chronically, this will be continued here. Patient follows outside software manager for psoriatic arthritis. VTE prophylaxis: LMWH Disposition: TBD. Hopefully to SNF soon pending oxygenation. Allergies/Procedures Done in Hospital Allergies duloxetine [From Cymbalta] Allergy (Intermediate, Verified 06/01/23 17:42) Swelling Nausea erythromycin base Allergy (Verified 06/01/23 17:42) Nausea/Vom/Diarrhea pregabalin [From Lyrica] Allergy (Verified 06/01/23 17:42) Swelling Type of Care/Length of Stay Estimated LOS: Convalescent Care Less Than 30 days Type of Care Needed: Skilled Rehab Potential: Fair Prognosis: Fair Additional Orders/Day of Discharge Day of Discharge: 06/13/23 Dietary and Speech Recommendations Dietitian Recommendations/Changes: Continue Cardiac/sodium-restricted diet with 1500mL FR per day. Will d/c magic cup since PO improved at meals. Monitor blood glucose and need to restrict carbohydrates. Discharge Plan Admission Admit Date/Time: 06/01/23 23:06 Primary Reason for Your Visit: Respiratory failure. Non-STEMI Attending Provider: Ruiz Lopes Primary Care Provider: Pedro Williamson Consulting Providers: Aron Pérez; Osorio Harrison; Victor M Staley; Camacho Williamson; Galen Ward; Pedro Jamison; Padma Oneill NP; Aung Brown; Melquiades Hayward Instructions Additional Instructions / Restrictions: Follow up with your software manager at your earliest convenience. Discharge Orders/Prescriptions Prescriptions: New polyethylene glycol 3350 17 gram Powder In Packet 17 g PO DAILY Qty: 0 0RF oxymetazoline [Nasal [place] (oxymetazoline)] 0.05 % [place],Non-Aerosol 2 spray NASAL X1 PRN (Reason: NASAL CONGESTION) Qty: 0 0RF miconazole nitrate [Desenex] 2 % Powder 1 applic topical BID Qty: 0 0RF Protocol: *Topical Application Instructions APPLICATION INSTRUCTIONS: APPLY TO GROIN AND FOLDS atorvastatin 40 mg Tablet 40 mg PO QHS Qty: 0 0RF aspirin 81 mg Tablet,Chewable 81 mg PO DAILY@0800 Qty: 0 0RF metoprolol tartrate 25 mg Tablet 25 mg PO BID Qty: 0 0RF acetaminophen 325 mg Tablet 650 mg PO Q6H PRN PRN (Reason: Pain 1-10 Or Fever>100.7) Qty: 0 0RF Brilinta 90 mg Tablet 90 mg PO BID Qty: 0 0RF prednisone 10 mg tablet 10 mg PO DAILY Qty: 18 0RF Rx Instructions: 3 tabs daily for 3 days, then 2 tabs daily for 3 days, then 1 tab daily for 3 days furosemide 40 mg tablet 40 mg PO DAILY Qty: 30 0RF potassium chloride 20 mEq packet 20 meq PO DAILY Qty: 30 0RF Continued losartan 50 mg tablet 50 mg PO DAILY melatonin 10 mg capsule 10 mg PO HS PRN (Reason: Sleep) folic acid 1 mg tablet 1 mg PO DAILY methotrexate sodium 2.5 mg tablet 20 mg PO QWEEK Rx Instructions: SUNDAYS pantoprazole 40 mg tablet,delayed release (DR/EC) 40 mg PO DAILY Rx Instructions: in AM lansoprazole 30 mg capsule,delayed release(DR/EC) 30 mg PO DAILY Rx Instructions: in PM Ibsrela 50 mg tablet 50 mg PO DAILY Rx Instructions: must administer immediately before first meal of day/breakfast tizanidine 4 MG tablet 4 mg PO QHS 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 Held prednisone 5 mg tablet 1 tab PO DAILY Hold Instructions: Resume on 06/23/23. Discontinued hydrocodone-acetaminophen 10-325 mg tablet 0.25 tab PO DAILY PRN (Reason: pain) hydrochlorothiazide 25 MG tablet 25 mg PO DAILY Qty: 30 0RF Referrals / Follow Up: Pedro Williamson DO [Primary Care Provider] - Within 2 Weeks Yusra Del Rio PA [Med Staff - Adv Practice Prof] - 06/30/23 11:00 am Disposition Disposition (needs filled in before D/C Order can be placed): [facility]
--- NOTE | 2023-06-13 15:20 | DS.PCM_ITS ---
Providers Date of Admission: 06/01/23 Primary Care Physician: Dr. Pedro Williamson, DO Consultations 06/02/23 09:28 Consult: Cardiology Routine Consulting Provider: Osorio Harrison Reason for Consult: elevated troponin EMERGENT Consult: No Notified: Yes Date Notified: 06/02/23 Time Notified: 10:09 Method of Notification: Text 06/02/23 18:03 Consult: [employer]eterie Table Assembler / Pulmonary Medicine Routine Consulting Provider: Pulmonary Medicine deana [place] Reason for Consult: pulmonary fibrosis EMERGENT Consult: No MD Notified: Yes Date Notified: 06/03/23 Time Notified: 06:45 Method of Notification: Text Reason For Visit: ACUTE DYSPNEA WITH HYPOXIA Diagnosis Discharge Diagnosis (1) Acute hypoxemic respiratory failure: Status: Acute Code(s): J96.01 - Acute respiratory failure with hypoxia Plan: Acute hypoxic respiratory failure due to undiagnosed chronic lung disease, favor chronic pulmonary fibrosis with a possible overlap of COPD with paroxysms of cough-patient will remain on aerosol treatments, continue present treatment with bronchodilators and inhaled corticosteroids, patient most likely will need set up for home oxygen when she goes home, she will need to follow-up with pulmonary medicine as an outpatient. 06/05: Yesterday patient was started on codeine/guaifenesin but patient did not take it, stated gets itching with codeine but she is on hydrocodone scheduled and as needed and she is on scheduled prednisone and IV Solu-Medrol as needed. Advised aggressive incentive spirometry, Mucinex DM as decongestant. She is desaturating even on 10 L of mass therefore advised Airvo. Earlier temperature inspector was consulted 06/06: IV Solu-Medrol started. Continue DuoNeb nebulization, patient able to take Mucinex. Continue cough medication, decongestant, incentive spirometry and Airvo. Pulmonary follow-up requested. Palliative care requested by patient's daughter 06/07: Pulmonary follow-up reviewed and appreciated. I agree with IV Solu-Medrol and needs prolonged prednisone in the outpatient setting until follows in clinic for further PFT evaluation.2 dosages of IV Lasix 20 mg twice daily with holding parameter. Hold HCTZ as patient is on Lasix. Normal right ventricular systolic function. 06/08: Patient on Airvo, changed to high flow oxygen 5 L. HCTZ from tomorrow AM. BP 99 systolic, BUN increased to 45 from 29 therefore hold for further Lasix. 06/10: weight is up from admission. Still on high-flow oxygen. Add IV furosemide. 06/11: Weight down 3kg with diuresis. Still symptomatic. Will continue with IV furosemide. 06/13: ambulated and was 90% on 4l/m nc. Will discharge with a prednisone taper. Then when she has completed that, resume her daily 5mg dosing. Continue furosemide 40/d with 20 MeQ of KCl. (2) Acute non-ST elevation myocardial infarction (NSTEMI): Status: Acute Code(s): I21.4 - Non-ST elevation (NSTEMI) myocardial infarction Plan: Non-STEMI with eccentric mid segment 70 to 80% right coronary artery and nonocclusive coronary disease in the left main, left anterior descending artery, and the circumflex artery. s/p PCI to mid RCA Continue aspirin, Brilinta, metoprolol 25 mg twice daily, losartan 50 mg daily, HCTZ 25 mg daily and atorvastatin 40 mg daily. Echo shows EF 55 to 60%. No significant valvular abnormality reported. Plan Chronic conditions: * pulmonary fibrosis/possible COPD/interstitial lung disease-patient has paroxysms of cough that makes her very short of breath and tachypneic. His central cough is not predominantly from URI but respiratory panel, COVID-19 PCR are negative. Patient seen by pulm. CTA chest shows bibasilar subpleural interstitial septal thickening and groundglass opacities representing evolving interstitial lung disease. Autoimmune panel was ordered and follow-up with pulmonary medicine after 2 weeks to get baseline PFT. Incentive spirometry. 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 * psoriatic arthritis-patient is on methotrexate chronically, this will be continued here. Patient follows outside food aide for psoriatic arthritis. VTE prophylaxis: LMWH Disposition: to [facility] patient's sone. Medications at Discharge Home Medications omega-3 fatty acids-fish oil 340 mg-1,000 mg capsule (Fish Oil) 1,000 mg PO DAILY supplment 11/10/15 tizanidine 4 mg tablet 4 mg PO QHS 11/10/15 calcium carbonate 600 mg calcium (1,500 mg) tablet 2,000 mg PO DAILY bone health 11/17/15 cholecalciferol (vitamin D3) 25 mcg (1,000 unit) tablet (Vitamin D3) 1,000 unit PO BID supplement 11/17/15 meloxicam 7.5 mg tablet 15 mg PO DAILY pain 10/14/16 folic acid 1 mg tablet 1 mg PO DAILY 04/05/22 losartan 50 mg tablet 50 mg PO DAILY 04/05/22 melatonin 10 mg capsule 10 mg PO HS PRN Sleep 04/05/22 prednisone 5 mg tablet 1 tab PO DAILY 04/30/22 lansoprazole 30 mg capsule,delayed release 30 mg PO DAILY 05/27/23 methotrexate sodium 2.5 mg tablet 20 mg PO QWEEK 05/27/23 pantoprazole 40 mg tablet,delayed release 40 mg PO DAILY gerd 05/27/23 tenapanor 50 mg tablet (Ibsrela) 50 mg PO DAILY constipation 05/27/23 acetaminophen 325 mg tablet 650 mg (2 x 325 mg) PO Q6H PRN PRN Pain 1-10 Or Fever>100.7 #0 tabs 06/13/23 aspirin 81 mg chewable tablet 81 mg PO DAILY@0800 #0 tabs 06/13/23 atorvastatin 40 mg tablet 40 mg PO QHS #0 tabs 06/13/23 buprenorphine 15 mcg/hour weekly transdermal patch 1 patch transdermal Q7D #4 ea 06/13/23 furosemide 40 mg tablet 40 mg PO DAILY #30 tabs 06/13/23 hydrocodone 10 mg-acetaminophen 325 mg tablet 0.5 tab PO BID Pain 3 days #6 tabs 06/13/23 metoprolol tartrate 25 mg tablet 25 mg PO BID #0 tabs 06/13/23 miconazole nitrate 2 % topical powder (Desenex) 1 applic topical BID #0 grams 06/13/23 oxymetazoline 0.05 % nasal spray (Nasal [place] (oxymetazoline)) 2 spray NASAL X1 PRN NASAL CONGESTION #0 mL 06/13/23 polyethylene glycol 3350 17 gram oral powder packet 17 g PO DAILY #0 ea 06/13/23 potassium chloride 20 mEq oral packet 20 meq PO DAILY #30 ea 06/13/23 prednisone 10 mg tablet 10 mg PO DAILY #18 tabs 06/13/23 ticagrelor 90 mg tablet (Brilinta) 90 mg PO BID #0 tabs 06/13/23 Hospital Course Procedures Cardiac catheterization Summary of Care Provided Minutes Spent on Discharge: 45 Weight / BMI Weight Weight: 95.1 kg Body Mass Index (BMI) 35.9 ABG / Lab / Microbiology Data 06/10/23 04:31 06/13/23 05:03 Laboratory: Laboratory Results - last 24 hr 06/13/23 05:03: Sodium 137, Potassium 3.2 L, Chloride 98, Carbon Dioxide 35.0 H, Anion Gap 4 L, BUN 46 H, Creatinine 0.84, Estim Creat Clear Calc 53.04, Est GFR (MDRD) Af Amer 86, Est GFR (MDRD) Non-Af 71, BUN/Creatinine Ratio 54.8 H, Glucose 117 H, Calcium 9.2 Microbiology: Microbiology 06/05/23 14:05 Interface Orders Group A Streptococcus Rapid Screen - Final 06/01/23 18:10 Blood Culture (Wb) #2 - Anticubital Right Blood Culture - Final No growth in 5 days. 06/01/23 18:10 Blood Culture (Wb) - Venous Blood Culture - Final No growth in 5 days. 06/01/23 23:23 Mucosa - Nasopharyngeal Respiratory Panel (PCR) - Final 06/01/23 23:23 Mucosa - Nasopharyngeal Coronavirus COVID-19 PCR - Final 06/01/23 18:00 Nasal Secretion SARS-CoV-2 & FLU Antigen (Rapid) - Final Meaningful Use Info Meaningful Use Diagnoses (Choose all that apply): AMI AMI/Post PCI/Angioplasty Aspirin given w/in 24hrs of arrival?: Yes ASA at discharge?: Yes Antiplatelet Therapy at Discharge:: Yes Statins at discharge?: Yes Michael/ARB at discharge?: Yes Beta Car at discharge?: Yes Done w/ Acute VA measure.: Yes Documented LVEF (%): 55 Discharge Plan Admission Admit Date/Time: 06/01/23 23:06 Primary Reason for Your Visit: Respiratory failure. Non-STEMI Attending Provider: Ruiz Lopes Primary Care Provider: Pedro Williamson Consulting Providers: Aron Pérez; Osorio Harrison; Victor M Staley; Camacho Williamson; Galen Ward; Pedro Jamison; Padma Oneill NP; Aung Brown; Melquiades Hayward Instructions Additional Instructions / Restrictions: Follow up with your food aide at your earliest convenience. Discharge Orders/Prescriptions Prescriptions: New polyethylene glycol 3350 17 gram Powder In Packet 17 g PO DAILY Qty: 0 0RF oxymetazoline [Nasal [place] (oxymetazoline)] 0.05 % [place],Non-Aerosol 2 spray NASAL X1 PRN (Reason: NASAL CONGESTION) Qty: 0 0RF miconazole nitrate [Desenex] 2 % Powder 1 applic topical BID Qty: 0 0RF Protocol: *Topical Application Instructions APPLICATION INSTRUCTIONS: APPLY TO GROIN AND FOLDS atorvastatin 40 mg Tablet 40 mg PO QHS Qty: 0 0RF aspirin 81 mg Tablet,Chewable 81 mg PO DAILY@0800 Qty: 0 0RF metoprolol tartrate 25 mg Tablet 25 mg PO BID Qty: 0 0RF acetaminophen 325 mg Tablet 650 mg PO Q6H PRN PRN (Reason: Pain 1-10 Or Fever>100.7) Qty: 0 0RF Brilinta 90 mg Tablet 90 mg PO BID Qty: 0 0RF prednisone 10 mg tablet 10 mg PO DAILY Qty: 18 0RF Rx Instructions: 3 tabs daily for 3 days, then 2 tabs daily for 3 days, then 1 tab daily for 3 days furosemide 40 mg tablet 40 mg PO DAILY Qty: 30 0RF potassium chloride 20 mEq packet 20 meq PO DAILY Qty: 30 0RF Continued losartan 50 mg tablet 50 mg PO DAILY melatonin 10 mg capsule 10 mg PO HS PRN (Reason: Sleep) folic acid 1 mg tablet 1 mg PO DAILY methotrexate sodium 2.5 mg tablet 20 mg PO QWEEK Rx Instructions: SUNDAYS pantoprazole 40 mg tablet,delayed release (DR/EC) 40 mg PO DAILY Rx Instructions: in AM lansoprazole 30 mg capsule,delayed release(DR/EC) 30 mg PO DAILY Rx Instructions: in PM Ibsrela 50 mg tablet 50 mg PO DAILY Rx Instructions: must administer immediately before first meal of day/breakfast tizanidine 4 MG tablet 4 mg PO QHS 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 Held prednisone 5 mg tablet 1 tab PO DAILY Hold Instructions: Resume on 06/23/23. Discontinued hydrocodone-acetaminophen 10-325 mg tablet 0.25 tab PO DAILY PRN (Reason: pain) hydrochlorothiazide 25 MG tablet 25 mg PO DAILY Qty: 30 0RF Referrals / Follow Up: Pedro Williamson DO [Primary Care Provider] - Within 2 Weeks Yusra Del Rio PA [Med Staff - Adv Practice Prof] - 06/30/23 11:00 am Disposition Disposition (needs filled in before D/C Order can be placed): [facility] Charges/Coding Visit Charges Inpatient E&M: 17741 Disch Hosp >30min
--- NOTE | 2023-06-13 15:25 | CASEMGMT ---
Patient has been approved for [facility]. SW notified physician and patient will go today. SW completed a PASRR in [facility] system. Plan: d/c to [facility] under skilled level of care on a PASRR. Physicians will transport patient. Flores MORTENSEN
--- NOTE | 2023-06-13 16:04 | CASEMGMT ---
Discharge Planning Discharge orders, signed med list, and transport time sent to [facility] via [facility]. [facility] will transport patient by wheelchair at 5p. Patient, her son, nursing, and SW updated. Tomasa Johns, Discharge Planning Asst.
--- NOTE | 2023-06-13 16:35 | NURSING ---
[id number] Report called to nurse JUAN @ [facility]. 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
== END 2023-06-13 17:42 | disposition skilled nursing facility (03) | DRG 246 ==
LOC: ED 23:09 → PCU 06-02 00:11
PROVIDERS: Internal Medicine; Internal Medicine Critical Care Medicine; Internal Medicine Interventional Cardiology; Admitting Provider Hospitalist; Emergency Provider Emergency Medicine; PCP Family Medicine
DX: I21.4 Non-ST elevation (NSTEMI) myocardial infarction (principal); J96.01 Acute respiratory failure with hypoxia; J44.9 Chronic obstructive pulmonary disease, unspecified; I25.110 Atherosclerotic heart disease of native coronary artery with unstable angina pectoris; J84.10 Pulmonary fibrosis, unspecified; L40.50 Arthropathic psoriasis, unspecified; M06.9 Rheumatoid arthritis, unspecified; I10 Essential (primary) hypertension; E78.00 Pure hypercholesterolemia, unspecified; M51.36 Other intervertebral disc degeneration, lumbar region; K21.9 Gastro-esophageal reflux disease without esophagitis; E87.70 Fluid overload, unspecified; F17.210 Nicotine dependence, cigarettes, uncomplicated; G62.9 Polyneuropathy, unspecified; E66.9 Obesity, unspecified; G89.29 Other chronic pain; Z20.822 Contact with and (suspected) exposure to COVID-19; Z68.36 Body mass index [BMI] 36.0-36.9, adult; Z79.899 Other long term (current) drug therapy
CPT/HCPCS: 36415; 71045; 71046; 71275; 80048; 80053; 80076; 82962; 83605; 83880; 84484; 85025; 85027; 85347; 85610; 85730; 86038; 86200; 86225; 86235; 86256; 86431; 87040; 87428; 87633; 87635; 87880; 92928; 93005; 93306; 93454; 94640; 94660; 94668; 94762; 97110; 97162; 97165; 97530; 97535; 97802; 97803; 99152; 99153; 99285; 99406; J7030; J7040; J7120; Q9957; Q9967; A4216; C1753; C1760; C1769; C1874; C1887; C1894; C8929; C9600; J1940; J8610

== ENCOUNTER → 2023-08-11 | Outpatient (CLI) | payer MEDICARE, MEDICAID, SELFPAY ==
[2023-08-11 12:55] VITALS: PULSE 51; PULSE 54; PULSE 59; PULSE 60; PULSE 61; PULSE 72; O2SAT 86; O2SAT 88; O2SAT 93; O2SAT 94; O2SAT 99
--- NOTE | 2023-08-11 13:48 | CPS ---
Patient wears 4 lpm continuous O2 at home. Patient SpO2 99-100% on 4 lpm sitting. Took patient off O2, within 10 minutes SpO2 88% on Room air, sitting. Placed patient on 2 lpm continuous, SpO2 recovered quickly to 97%, started testing on 2 lpm. Patient was able to walk continuously for 2 minutes until SpO2 86% on 2 lpm. Stopped patient and turned O2 up to 4 lpm. SpO2 did drop as low as 81% during this break. SpO2 then recovered to 98% within 1-2 minutes. Patient walked an additional 2 minutes on 4 lpm with an SpO2 >90%. At 4 minutes and 20 seconds, patient took a break and never walked again until the 6 minutes ran out. Patient was short of breath but was mostly suffering from shoulder pain that made her not want to walk any further.
--- NOTE | 2023-08-12 08:20 | WT_ITS ---
PSN 6 Minute Walk Test 6 Minute Walk Test 6 Minute Walk Test: 6 Minute Walk Test PSN:6-Minute Walk Test Start: 08/11/23 13:44 Freq: Status: Active Protocol: [id number].6MINW Document 08/11/23 12:55 ISRAEL (Rec: 08/11/23 13:53 ISRAEL [id number]) 6 Minute Walk Test Date Performed 08/11/23 Time Performed 12:30 Height 5 ft 4 in Weight: 205 lb Weight in Pounds 205.[address]: Camacho Williamson Assistive device used: Walker Pre-test Oxygen Delivery Method Room Air Pulse Ox 88 Pulse Rate (60-100) 54 L Dyspnea Judy Scale (0-10) 0 Exertion Judy Scale (6-20) 6 1st minute Oxygen Flow Rate (L/min) 2 Oxygen Delivery Method Nasal Cannula Pulse Ox 93 Pulse Rate (60-100) 59 L 2nd minute Oxygen Flow Rate (L/min) 2 Oxygen Delivery Method Nasal Cannula Pulse Ox 86 Pulse Rate (60-100) 72 3rd minute Oxygen Flow Rate (L/min) 4 Oxygen Delivery Method Nasal Cannula Pulse Ox 94 Pulse Rate (60-100) 60 4th minute Oxygen Flow Rate (L/min) 4 Oxygen Delivery Method Nasal Cannula Pulse Ox 93 Pulse Rate (60-100) 61 Dyspnea Judy Scale (0-10) 4 Exertion Judy Scale (6-20) 14 Number of Rests Taken 1 Post-test Oxygen Flow Rate (L/min) 4 Oxygen Delivery Method Nasal Cannula Pulse Ox 99 Pulse Rate (60-100) 51 L Full Laps Walked 6 Partial Lap, Number of Tiles Walked 22 Total Distance Walked (ft) 376 08/11/23 13:48 Cardiopulmonary Services by Rima Collado Patient wears 4 lpm continuous O2 at home. Patient SpO2 99-100% on 4 lpm sitting. Took patient off O2, within 10 minutes SpO2 88% on Room air, sitting. Placed patient on 2 lpm continuous, SpO2 recovered quickly to 97%, started testing on 2 lpm. Patient was able to walk continuously for 2 minutes until SpO2 86% on 2 lpm. Stopped patient and turned O2 up to 4 lpm. SpO2 did drop as low as 81% during this break. SpO2 then recovered to 98% within 1-2 minutes. Patient walked an additional 2 minutes on 4 lpm with an SpO2 >90%. At 4 minutes and 20 seconds, patient took a break and never walked again until the 6 minutes ran out. Patient was short of breath but was mostly suffering from shoulder pain brandie t made her not want to walk any further. Initialized on 08/11/23 13:48 - END OF NOTE Interpretation Interpretation: The patient ambulated 376 feet over the course of 6 minutes with use of a walker. Pretesting oxygen saturation was noted to be 88% on room air. 2 L/min of oxygen was applied prior to the initiation of testing. With ambulation, the whit oxygen saturation was 86%, requiring an escalation of flow rate to 4 L/min. The patient did not ambulate any further after minute 4 of testing. Recommendations Recommendations: 2 L/min of supplemental oxygen should be utilized at rest, while 4 L/min is required with exertion.
== END | disposition home or self-care (01) ==
LOC: PSN 12:19
PROVIDERS: PCP Family Medicine; Referring Provider Internal Medicine Critical Care Medicine; Visit Provider Internal Medicine Critical Care Medicine
DX: J84.9 Interstitial pulmonary disease, unspecified (principal)
CPT/HCPCS: 94618

== ENCOUNTER → 2023-08-12 | Outpatient (CLI) | payer MEDICARE, MEDICAID, SELFPAY ==
--- NOTE | 2023-08-13 10:01 | PFT ---
INTRODUCTION: The patient is a 72-year-old female who presents for pulmonary function studies secondary to a diagnosis of IPF. Respiratory therapy reported good patient effort. Bronchodilators were used during testing. INTERPRETATION: Forced expiration spirometry demonstrates no evidence of a large airways obstructive ventilatory defect. There was a significant response to aerosolized bronchodilators. Spirograms are of fair quality and plateau gradually. Body plethysmography was performed and revealed a decreased TLC to 2.26 L, 46% of predicted, indicative of a severe restrictive ventilatory impairment. Diffusing capacity by single breath CO is reduced at 28% of predicted. IMPRESSION: Severe restrictive ventilatory impairment with symmetric reduction in diffusion capacity.
== END | disposition home or self-care (01) ==
LOC: PSN 12:33
PROVIDERS: PCP Family Medicine; Referring Provider Internal Medicine Critical Care Medicine; Visit Provider Internal Medicine Critical Care Medicine
DX: J84.9 Interstitial pulmonary disease, unspecified (principal)
CPT/HCPCS: 94060; 94726; 94729

== ENCOUNTER 2023-10-10 12:11 | Emergency (ER) | payer MEDICARE, SELFPAY ==
[2023-10-10 12:12] VITALS: TEMP 37.1; BMI 37.8
[2023-10-10 12:16] VITALS: BP 134/97; PULSE 62; RESP 16; O2SAT 100
--- NOTE | 2023-10-10 12:24 | EKG12_ITS ---
Test Reason : SOB Blood Pressure : / mmHG Vent. Rate : 064 BPM Atrial Rate : 064 BPM P-R Int : 152 ms QRS Dur : 084 ms QT Int : 414 ms P-R-T Axes : 042 057 006 degrees QTc Int : 427 ms Normal sinus rhythm Normal ECG Confirmed by MELVI OLIVEROS MD ([id number]), video tape editor BRIDGETT CRESPO ([id number]) on 10/13/2023 6:37:56 AM Referred By: PAULINA Confirmed By:MELVI OLIVEROS MD
[2023-10-10 12:49] LABS: Absolute Neutrophil Count 6.2 X10^3/uL (2.0-7.7); Basophil# 0.04 X10^3/uL; Basophil% 0.4 % (0-1); Eosinophil# 0.19 X10^3/uL; Eosinophils% 2.1 % (0-5); Hematocrit 36.9 % (37-47); Hemoglobin 11.7 g/dL (12.0-15.0); Lymphocyte % 12.2 % (19-41); Mean Corp Hgb Conc 31.7 g/dL (32-36); Mean Corpuscular Hgb 32.1 pg (27.0-32.0); Mean Corpuscular Volume 101.4 fL (81-99); Mean Platelet Vol. 11.3 fl (6.2-12.0); Monocyte# 1.41 X10^3/uL; Monocyte% 15.6 % (0-10); NRBC Flagged by Analyzer 0 % (0-5); Neutrophil # 6.19 X10^3/uL (2.7-7.7); Neutrophil % 68.7 % (47-70); Platelet Count 214 K/mm3 (150-450); RBC Distribution Width CV 15.6 % (11.6-14.6); RBC Distribution Width SD 56.9 fl (35.1-43.9); Red Blood Count 3.64 M/mm3 (4.2-5.4)
--- NOTE | 2023-10-10 12:52 | RAD_ITS ---
STUDY: X-RAY CHEST REASON FOR EXAM: Female, 73 years old. Shortness of breath TECHNIQUE: Single AP portable view of the chest. COMPARISON: Comparison is made with prior study dated June 07, 2023. FINDINGS: EKG electrodes are seen. Mild degree of vascular congestion. Blunting of both costophrenic angles. There is mild cardiac enlargement. Normal mediastinum and jadon. Normal visualized pulmonary arteries. There is atherosclerotic calcification of the aortic arch with tortuosity. Normal visualized thoracic spine. Normal visualized ribs, clavicles, and shoulders. There is no demonstrated abnormality of the visualized soft tissue structures of the upper abdomen. RAD/Chest 1 View (Portable) IMPRESSION: Mild degree of vascular congestion. Blunting of both costophrenic angles. Electronically Signed: Hunter Campos MD at 13:13 EST ,
--- NOTE | 2023-10-10 12:56 | EDS_ITS ---
HPI History of Present Illness Chief Complaint: Shortness of Breath Detail of Chief Complaint: Please shortness of breath and generalized weakness Informant: patient Onset/Context/Timing Onset: Days Context: gradual Timing: Continuous Quality: Positive for Dyspnea on exertion and Wheezing (Last evening); Negative for Orthopnea or PND Current Severity: Mild Maximum Severity: Moderate Worsened by: Exertion and Coughing; Not Worsened By Lying flat or other Relieved by: Nothing Associated Symptoms cough, rhinorrhea, post nasal drip, fever, sore throat, subjective and chills; Negative for ear pain or sweats Chest Pain: Positive for None Narrative Narrative: Chin is a 73-year-old woman with chronic respiratory failure on oxygen at 3 L by nasal cannula at rest. Increases to 4 L with activity. She has history of pulmonary fibrosis. Patient denied history of congestive heart failure however review of prior records indicates she does have history of congestive heart failure. Orthopnea or PND. She denies chest discomfort. She denies history of PE or DVT. She does have history of coronary artery disease. She states she has multiple stents. She apparently had a posterior [place] and stents are in the circumflex vessel. She denies leg pain, swelling or discoloration. She denies vomiting or diarrhea. Denies black or maroon-colored stool. PE Risk Factors: Positive for Recent immobilization (Unchanged from baseline); Negative for Cancer, OCP + Smoking + > 35, Prior DVT or PE, Recent surgery or Recent travel Prior similar symptoms: Yes Recent Illness/Hospitalization: No [facility] Medical History Abrasion Ambulates with cane Arthritis Atherosclerotic heart disease of [place] coronary artery without angina pectoris Back pain Back problem C. difficile colitis Diastolic heart failure Elevated glucose Gastric reflux GERD (gastroesophageal reflux disease) Hearing difficulty High blood pressure High cholesterol History of diverticulitis History of hiatal hernia History of steroid therapy History of ulceration HTN (hypertension) IBS (irritable bowel syndrome) Low back pain Neuropathy Obesity Osteoarthritis Osteopenia Psoriatic arthritis Smoker Uses wheelchair Walker as ambulation aid Wears glasses Home Medications omega-3 fatty acids-fish oil 340 mg-1,000 mg capsule (Fish Oil) 1,000 mg PO DAILY supplment 11/10/15 [History Last Taken 06/01/23] tizanidine 4 mg tablet 4 mg PO QHS 11/10/15 [History Last Taken 11/16/15 21:30] calcium carbonate 600 mg calcium (1,500 mg) tablet 2,000 mg PO DAILY bone health 11/17/15 [History Last Taken 11/17/15 12:30] cholecalciferol (vitamin D3) 25 mcg (1,000 unit) tablet (Vitamin D3) 1,000 unit PO BID supplement 11/17/15 [History Last Taken 11/16/15 21:25] meloxicam 7.5 mg tablet 15 mg PO DAILY pain 10/14/16 [History Last Taken Unknown] folic acid 1 mg tablet 1 mg PO DAILY 04/05/22 [History Last Taken Unknown] melatonin 10 mg capsule 10 mg PO HS PRN Sleep 04/05/22 [History Last Taken Unknown] prednisone 5 mg tablet 1 tab PO DAILY 04/30/22 [History Last Taken Unknown] lansoprazole 30 mg capsule,delayed release 30 mg PO DAILY 05/27/23 [History Last Taken Unknown] methotrexate sodium 2.5 mg tablet 20 mg PO QWEEK 05/27/23 [History Last Taken Unknown] pantoprazole 40 mg tablet,delayed release 40 mg PO DAILY gerd 05/27/23 [History Last Taken Unknown] tenapanor 50 mg tablet (Ibsrela) 50 mg PO DAILY constipation 05/27/23 [History Last Taken Unknown] aspirin 81 mg chewable tablet 81 mg PO DAILY@0800 #0 tabs 06/13/23 [Rx Last Taken Unknown] buprenorphine 15 mcg/hour weekly transdermal patch 1 patch transdermal Q7D #4 ea 06/13/23 [Rx Last Taken Unknown] hydrocodone 10 mg-acetaminophen 325 mg tablet 0.5 tab PO BID Pain 3 days #6 tabs 06/13/23 [Rx Last Taken Unknown] miconazole nitrate 2 % topical powder (Desenex) 1 applic topical BID #0 grams 06/13/23 [Rx Last Taken Unknown] oxymetazoline 0.05 % nasal spray (Nasal Ubly (oxymetazoline)) 2 spray NASAL X1 PRN NASAL CONGESTION #0 mL 06/13/23 [Rx Last Taken Unknown] polyethylene glycol 3350 17 gram oral powder packet 17 g PO DAILY #0 ea 06/13/23 [Rx Last Taken Unknown] potassium chloride 20 mEq oral packet 20 meq PO DAILY #30 ea 06/13/23 [Rx Last Taken Unknown] Bedside commode #1 ea 07/16/23 [Rx Last Taken Unknown] hydrochlorothiazide 25 mg tablet 25 mg PO DAILY #1 TAB 07/28/23 [Rx Last Taken Unknown] atorvastatin 40 mg tablet 40 mg PO QHS #90 tabs 08/04/23 [Rx Last Taken Unknown] clopidogrel 75 mg tablet (Plavix) 75 mg PO DAILY #90 tabs 08/04/23 [Rx Last Taken Unknown] metoprolol tartrate 25 mg tablet 12.5 mg (1/2 x 25 mg) PO BID #90 tabs 08/04/23 [Rx Last Taken Unknown] fluticasone propionate 50 mcg/actuation nasal spray,suspension 2 spray intranasal DAILY #16 grams 09/08/23 [Rx Last Taken Unknown] cephalexin 500 mg capsule 500 mg PO Q6 #28 CAPSULES 10/10/23 [Rx Last Taken Unknown] Allergy/AdvReac Type Severity Reaction Status Date / Time duloxetine [From Cymbalta] Allergy Intermediate Swelling Verified 10/10/23 12:12 erythromycin base Allergy Nausea/Vom/ Verified 10/10/23 12:12 Diarrhea pregabalin [From Lyrica] Allergy Swelling Verified 10/10/23 12:12 Family History Mother Diabetes Arthritis Heart disease CVA (cerebral vascular accident) Hypertension History of blood transfusion Father Pancreatic cancer Alcoholism Peptic ulcer disease Son Seizures Suicide attempt Surgical History H/O laminectomy History of appendectomy History of appendectomy History of breast biopsy History of colonoscopy (05/01/02) History of foot surgery History of spinal surgery Stented coronary artery (06/03/23) Social History Smoking Status: Former smoker how long ago did patient quit smoking: about 2 months ago alcohol intake: never substance use type: does not use what type of physical activity do you participate in: none seatbelt use: always do you feel safe at home: Yes ROS ROS ED Constitutional Constitutional ED: Reports chills and fever(s); Denies sweats or weight loss Eyes Eyes: Denies blurry vision, change in vision or diplopia ENT ENT ED: Reports rhinorrhea and sore throat; Denies ear pain Cardiovascular Cardiovascular: Reports palpitations; Denies chest pain, orthopnea, paroxysmal nocturnal dyspnea or racing heartbeat Respiratory/Chest Respiratory/Chest: Reports cough, dyspnea and dyspnea on exertion; Denies orthopnea, paroxysmal nocturnal dyspnea or sputum Gastrointestinal Gastrointestinal: Denies abdominal pain, diarrhea, melena or vomiting Genitourinary Genitourinary ED: Denies dysuria, hematuria or urinary frequency Musculoskeletal Musculoskeletal: Denies arthralgias or myalgias Integumentary Denies rash Neurologic Neurologic: Reports weakness; Denies headache(s) or paresthesias Psychiatric Psychiatric: Reports anxiety and depression Endocrine Endocrinology: Denies cold intolerance or heat intolerance Hematologic/Lymphatic Hematologic/Lymphatic: Denies easy bleeding or easy bruising EXAM Physical Exam Narrative Exam Narrative: Patient appears in no Rester distress. She was tearful during history and physical. She is on oxygen and not hypoxic. Const Vital Signs: 10/10/23 12:12 10/10/23 12:16 10/10/23 12:16 Temperature 98.8 F Temperature Source Oral Pulse Rate 62 Respiratory Rate 16 Respiratory Effort Short of Breath Blood Pressure 134/97 H Blood Pressure Mean 109 Pulse Ox 100 Oxygen Delivery Method Nasal Cannula Oxygen Flow Rate (L/min) 4 10/10/23 13:39 10/10/23 15:02 Temperature 100.2 F H 99.4 F H Temperature Source Temporal Temporal Pulse Rate 69 Respiratory Rate 20 H Respiratory Effort Blood Pressure 132/56 H Blood Pressure Mean 81 Pulse Ox 100 Oxygen Delivery Method Nasal Cannula Oxygen Flow Rate (L/min) 3 Positive well nourished, well developed and obese General Appearance ED: well developed and pallor Nutritional Appearance: obese HEENT Reports moist mucous membranes atraumatic Eyes PERRL and EOMs intact bilaterally General Eye ED: Negative for pale conjunctiva or scleral icterus Neck no lymphadenopathy, supple, no meningeal signs and no JVD Resp normal respiratory effort and No clear to auscultation bilaterally Auscultation: rales bilateral throughout (Secondary to her pulmonary fibrosis. There is no wheezing.) and diminished lung sounds; Negative for rhonchi or wheezes Cardio regular rate, regular rhythm, S1 normal heart sound, S2 normal heart sound and no murmurs GI non-tender, non-distended and no masses Auscultation: normoactive bowel sounds Palpation: soft Back/Spine no CVA tenderness and normal to inspection Extremity normal to inspection General Extremety ED: Negative for tenderness Neuro oriented x3, CN's II-XII intact bilaterally and no sensory deficits noted [place] Scale: document GCS findings Spontaneous Obeys Commands Oriented 15 Sensorium / Orientation: alert Psych Mood & Affect: depressed and tearful Skin no wounds and skin turgor normal General Skin Exam: pallor; Negative for jaundice Lesions: no lesions Rashes: no rashes MDM MDM MDM Narrative Medical decision making narrative: Suspect patient has a component of depression and anxiety. She does have chronic lung disease. She is presently not hypoxic. Her vital signs are unremarkable with the exception of a slight elevated blood pressure. Will obtain CBC to rule out anemia since she appears pale. Chest x-ray to rule out pneumonia and pneumothorax. Electrolyte panel to assess renal function. Lab Data Attestation: I reviewed the patient's lab results. Lab results narrative: Patient has macrocytic anemia. There is no change from prior CBC obtained May 2023. Basic metabolic panel is normal. Lactate is normal. Labs: Laboratory Results - last 24 hr 10/10/23 10/10/23 10/10/23 12:40 13:13 15:00 WBC 9.0 RBC 3.64 L Hgb 11.7 L Hct 36.9 L MCV 101.4 H MCH 32.1 H MCHC 31.7 L RDW Std Deviation 56.9 H RDW Coeff of Sonya 15.6 H Plt Count 214 MPV 11.3 Immature Gran % (Auto) 1.000 H Neut % (Auto) 68.7 Lymph % (Auto) 12.2 L [place] % (Auto) 15.6 H Eos % (Auto) 2.1 Baso % (Auto) 0.4 Absolute Neuts (auto) 6.2 Absolute Lymphs (auto) 1.10 Nucleated RBC % 0 Sodium Cancelled 138 Potassium Cancelled 3.5 Chloride Cancelled 102 Carbon Dioxide Cancelled 28.0 Anion Gap Cancelled 8 BUN Cancelled 13 Creatinine Cancelled 0.77 Estim Creat Clear Calc Cancelled 73.03 Est GFR (MDRD) Af Amer Cancelled 95 Est GFR (MDRD) Non-Af Cancelled 78 BUN/Creatinine Ratio Cancelled 16.8 Glucose Cancelled 89 Lactic Acid 1.9 Calcium Cancelled 8.9 Urine Color Yellow Urine Clarity Sl. Cloudy Urine pH 6.5 Ur Specific [place] 1.010 Urine Protein 30 H Urine Glucose (UA) Normal Urine Ketones 5 H Urine Occult Blood 25 H Urine Nitrite Positive H Urine Bilirubin Negative Urine Urobilinogen Normal Ur Leukocyte Esterase 100 H Urine RBC 0-5 SEEN Urine WBC 10-25 SEEN Ur Squamous Epith Cells 0-5 SEEN Urine Bacteria 2+ Urine Mucus 0 SEEN Consistent with infection. Urine culture was sent. She received a dose of Rocephin. This would explain her chills. Since white count is normal there is no end organ dysfunction patient is a candidate for outpatient treatment. Radiography Chest X-Ray - ED: Read by ED Physician (Patient with increased interstitial markings consistent with pulmonary fibrosis. Cardiac silhouette is unremarkable. Question of borderline cardiomegaly. Patient has limited in story volume. There is no obvious effusion noted. Osseous structures unremarkable. This was independently reviewed in) Diagnostic Testing: Clinical Impression(s) from Imaging Studies Chest X-Ray 10/10/23 12:52 IMPRESSION: Mild degree of vascular congestion. Blunting of both costophrenic angles. Electronically Signed: Hunter Campos MD at 13:13 EST , Discharge Plan Triage Chief Complaint: Shortness of Breath ED Provider: Randy Huynh Dx/Rx/DC Orders Clinical Impression: Chronic dyspnea, Atherosclerotic heart disease of [place] coronary artery without angina pectoris, Diastolic heart failure, Chronic hypoxemic respiratory failure, Fibrosis lung, Acute bacterial simple cystitis Instructions: ED Cystitis Female Adult Prescriptions: New cephalexin [cephalexin] 500 mg capsule 500 mg PO Q6 Qty: 28 0RF No Action melatonin 10 mg capsule 10 mg PO HS PRN (Reason: Sleep) folic acid 1 mg tablet 1 mg PO DAILY methotrexate sodium 2.5 mg tablet 20 mg PO QWEEK Rx Instructions: SUNDAYS pantoprazole 40 mg tablet,delayed release (DR/EC) 40 mg PO DAILY Rx Instructions: in AM lansoprazole 30 mg capsule,delayed release(DR/EC) 30 mg PO DAILY Rx Instructions: in PM Ibsrela 50 mg tablet 50 mg PO DAILY Rx Instructions: must administer immediately before first meal of day/breakfast fluticasone propionate 50 mcg/actuation spray,suspension 2 spray intranasal DAILY Qty: 16 3RF tizanidine 4 MG tablet 4 mg PO QHS 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 polyethylene glycol 3350 17 gram Powder In Packet 17 g PO DAILY Qty: 0 0RF oxymetazoline [Nasal Ubly (oxymetazoline)] 0.05 % Ubly,Non-Aerosol 2 spray NASAL X1 PRN (Reason: NASAL CONGESTION) Qty: 0 0RF miconazole nitrate [Desenex] 2 % Powder 1 applic topical BID Qty: 0 0RF Protocol: *Topical Application Instructions APPLICATION INSTRUCTIONS: APPLY TO GROIN AND FOLDS aspirin 81 mg Tablet,Chewable 81 mg PO DAILY@0800 Qty: 0 0RF potassium chloride 20 mEq packet 20 meq PO DAILY Qty: 30 0RF hydrocodone-acetaminophen 10-325 mg tablet 0.5 tab PO BID 3 Days Qty: 6 0RF buprenorphine 15 mcg/hour patch weekly 1 patch transdermal Q7D Qty: 4 0RF Rx Instructions: will need new patch on the . (DME) Bedside commode See Rx Instructions .Route .MEDSUPPLY Qty: 1 0RF Rx Instructions: As directed hydrochlorothiazide 25 mg tablet 25 mg PO DAILY Qty: 1 0RF atorvastatin 40 mg tablet 40 mg PO QHS Qty: 90 3RF clopidogrel [Plavix] 75 mg tablet 75 mg PO DAILY Qty: 90 3RF metoprolol tartrate 25 mg tablet 12.5 mg PO BID Qty: 90 3RF Primary Care Provider: Pedro Williamson Referrals: Pedro Williamson, DO [Primary Care Provider] - 3-5 Days Disposition Disposition: Home, Self Care
[2023-10-10 13:23] LABS: Lactic Acid 1.9 mmol/L (0.4-1.9)
[2023-10-10 13:39] VITALS: TEMP 37.9
[2023-10-10 14:05] LABS: Anion Gap 8 (5-15); BUN 13 mg/dL (7-18); BUN/Creat Ratio 16.8 RATIO (10-20); Calcium,Total 8.9 mg/dL (8.5-10.1); Chloride 102 mmol/L (98-107); Creatinine, Serum 0.77 mg/dL (0.55-1.02); EST Glomerular Filtration Rate 78 mL/min (>60); Est Glom Filt Rate - Afr Amer 95 mL/min (>60); Estimated Creatinine Clearance 73.03 ml/min; Glucose 89 mg/dL (74-106); Potassium 3.5 mmol/L (3.5-5.1); Sodium Level 138 mmol/L (136-145)
[2023-10-10] MEDS: Acetaminophen 500 MG Tablet 1000 MG PO (14:16)
[2023-10-10 15:02] VITALS: BP 132/56; PULSE 69; RESP 20; TEMP 37.4; O2SAT 100
[2023-10-10 15:02] LABS: Mucous, Urine 0 SEEN /hpf (<or=2+)
[2023-10-10 15:04] LABS: Color, Urine Yellow (Yellow); Glucose, Dipstick Normal (Normal); Ketone-Dipstick 5 mg/dl (Negative); Leukocyte Esterase-Dipstick 100 /ul (Negative); Nitrite-Dipstick Positive (Negative); Occult Blood-Urine 25 /ul (Negative); Protein-Dipstick 30 mg/dl (Negative); Urine Bilirubin Dipstick Negative (Negative); Urine Clarity Sl. Cloudy (Clear); Urine Urobilinogen Normal (Normal); Urine pH 6.5 (5.0 - 8.0)
[2023-10-10 15:24] LABS: Bacteria 2+ /hpf (None Seen); Red Blood Cells-Urine 0-5 SEEN /hpf (0-5); Squamous Epithelial Cells - UA 0-5 SEEN /hpf (5-10); White Blood Cells 10-25 SEEN /hpf (0-5)
--- NOTE | 2023-10-10 15:42 | CM.ED ---
Social Work SW received palliative/hospice consult request. SW introduced self and role to patient. Pt reports she requested the consult. SW reviewed the differences between palliative and hospice and patient is requesting a palliative consult. Pt reports she is miserable and doesn't want to live like this. Pt reports she does not have a small portable tank but a big cylinder she would have to lug around so she cannot leave her home. Pt believes she may have [employer] oxygen and reports her insurance would not cover a small portable pack. Pt reports 3-4L of O2 while in the home. Pt and son asked about AL information and pt reports she will not return to [facility]. Pt reports she was at [facility] last year and was unhappy with experience. Pt reports she cannot get home healthcare. Pt reports she was told she cannot get RE but pt denies assets. SW notified patient of resources to assist her in applying and resources for aides. SW will give patient resources for services and community resources. SW made a palliative referral and faxed information per their request. Anisha Ann LINK TRAINER OPERATOR, [employer]ARL STRINGER
[2023-10-10] MEDS: Ceftriaxone 1 GM/50 ML BAG IV (15:59)
[2023-10-10 16:59] VITALS: BP 116/57; PULSE 69; RESP 14; O2SAT 94
== END 2023-10-10 18:05 | disposition home or self-care (01) ==
PROVIDERS: Emergency Provider Emergency Medicine; PCP Family Medicine; Visit Provider Emergency Medicine
DX: N30.00 Acute cystitis without hematuria (principal); I50.32 Chronic diastolic (congestive) heart failure; I11.0 Hypertensive heart disease with heart failure; J96.11 Chronic respiratory failure with hypoxia; J84.10 Pulmonary fibrosis, unspecified; I25.10 Atherosclerotic heart disease of native coronary artery without angina pectoris; R53.1 Weakness; E78.00 Pure hypercholesterolemia, unspecified; J02.9 Acute pharyngitis, unspecified; Z79.82 Long term (current) use of aspirin; Z79.02 Long term (current) use of antithrombotics/antiplatelets; Z79.899 Other long term (current) drug therapy; Z11.52 Encounter for screening for COVID-19; Z99.81 Dependence on supplemental oxygen; Z95.5 Presence of coronary angioplasty implant and graft; I25.2 Old myocardial infarction; Z87.891 Personal history of nicotine dependence
CPT/HCPCS: 99284; 71045; 80048; 81001; 83605; 85025; 87077; 87086; 87088; 87631; 93005; J7050; A4216

== ENCOUNTER 2023-10-11 06:20 | Inpatient (IN) | payer MEDICARE, SELFPAY ==
[2023-10-11] VITALS (15 sets, daily range): BP systolic 96–147; BP diastolic 36–103; PULSE 48–95; RESP 16–20; TEMP 36.2–37.1; O2SAT 95–100; BMI 37.5; BMI 35.9
--- NOTE | 2023-10-11 06:38 | RAD_ITS ---
EXAM: XR CHEST, 1 VIEW CLINICAL INDICATION: cough TECHNIQUE: Frontal view of the chest. COMPARISON: 10/10/2023. FINDINGS: LUNGS AND PLEURAL SPACES: Low lung volumes limit the exam. No consolidations. No pneumothorax. No effusion. HEART: Unremarkable. Cardiac silhouette not enlarged. MEDIASTINUM: Central airways and mediastinal contour are unremarkable. BONES/JOINTS: Unremarkable. No acute fracture. SOFT TISSUES: Unremarkable. RAD/Chest 1 View (Portable) IMPRESSION: 1. Low lung volumes limit the exam. No consolidations. 2. No acute cardiopulmonary abnormality. Electronically Signed: Steve Bañuelos MD at 7:26 EST ,
--- NOTE | 2023-10-11 06:39 | EKG12_ITS ---
Test Reason : WEAKNESS Blood Pressure : / mmHG Vent. Rate : 059 BPM Atrial Rate : 059 BPM P-R Int : 148 ms QRS Dur : 086 ms QT Int : 468 ms P-R-T Axes : 028 033 -02 degrees QTc Int : [address] & T wave abnormality, consider anterior ischemia Abnormal ECG Confirmed by DOMO UMAÑA, MELVI ([id number]), acquisition editor BRIDGETT CRESPO ([id number]) on 10/13/2023 6:07:10 AM Referred By: Confirmed By:MELVI OLIVEROS MD
--- NOTE | 2023-10-11 06:40 | EDS_ITS ---
HPI History of Present Illness Chief Complaint: Weakness Detail of Chief Complaint: Weakness Informant: patient Narrative Narrative: Patient presents to the emergency department complaint generalized weakness. Patient was seen in the emergency department yesterday and diagnosed with a urinary tract infection. She complained of not feeling well and some wheezing yesterday. She had COVID and flu and RSV testing that was negative. Patient was discharged to home on antibiotics. This morning patient too weak to bed. She has nausea but no vomiting. She denies abdominal pain. She denies chest pain. She normally wears 3 to 4 L of O2 due to history of pulmonary fibrosis. Patient also with history of coronary artery disease and a cardiac stent. [facility] Medical History Abrasion Ambulates with cane Arthritis Atherosclerotic heart disease of [place] coronary artery without angina pectoris Back pain Back problem C. difficile colitis Diastolic heart failure Elevated glucose Gastric reflux GERD (gastroesophageal reflux disease) Hearing difficulty High blood pressure High cholesterol History of diverticulitis History of hiatal hernia History of steroid therapy History of ulceration HTN (hypertension) IBS (irritable bowel syndrome) Low back pain Neuropathy Obesity Osteoarthritis Osteopenia Psoriatic arthritis Smoker Uses wheelchair Walker as ambulation aid Wears glasses Home Medications omega-3 fatty acids-fish oil 340 mg-1,000 mg capsule (Fish Oil) 1,000 mg PO DAILY supplment 11/10/15 [History Last Taken 06/01/23] tizanidine 4 mg tablet 4 mg PO QHS 11/10/15 [History Last Taken 11/16/15 21:30] calcium carbonate 600 mg calcium (1,500 mg) tablet 2,000 mg PO DAILY bone health 11/17/15 [History Last Taken 11/17/15 12:30] cholecalciferol (vitamin D3) 25 mcg (1,000 unit) tablet (Vitamin D3) 1,000 unit PO BID supplement 11/17/15 [History Last Taken 11/16/15 21:25] meloxicam 7.5 mg tablet 15 mg PO DAILY pain 10/14/16 [History Last Taken Unknown] folic acid 1 mg tablet 1 mg PO DAILY 04/05/22 [History Last Taken Unknown] melatonin 10 mg capsule 10 mg PO HS PRN Sleep 04/05/22 [History Last Taken Unknown] prednisone 5 mg tablet 1 tab PO DAILY 04/30/22 [History Last Taken Unknown] lansoprazole 30 mg capsule,delayed release 30 mg PO DAILY 05/27/23 [History Last Taken Unknown] methotrexate sodium 2.5 mg tablet 20 mg PO QWEEK 05/27/23 [History Last Taken Unknown] pantoprazole 40 mg tablet,delayed release 40 mg PO DAILY gerd 05/27/23 [History Last Taken Unknown] tenapanor 50 mg tablet (Ibsrela) 50 mg PO DAILY constipation 05/27/23 [History Last Taken Unknown] aspirin 81 mg chewable tablet 81 mg PO DAILY@0800 #0 tabs 06/13/23 [Rx Last Ta vania Unknown] buprenorphine 15 mcg/hour weekly transdermal patch 1 patch transdermal Q7D #4 ea 06/13/23 [Rx Last Taken Unknown] hydrocodone 10 mg-acetaminophen 325 mg tablet 0.5 tab PO BID Pain 3 days #6 tabs 06/13/23 [Rx Last Taken Unknown] miconazole nitrate 2 % topical powder (Desenex) 1 applic topical BID #0 grams 06/13/23 [Rx Last Taken Unknown] oxymetazoline 0.05 % nasal spray (Nasal [place] (oxymetazoline)) 2 spray NASAL X1 PRN NASAL CONGESTION #0 mL 06/13/23 [Rx Last Taken Unknown] polyethylene glycol 3350 17 gram oral powder packet 17 g PO DAILY #0 ea 06/13/23 [Rx Last Taken Unknown] potassium chloride 20 mEq oral packet 20 meq PO DAILY #30 ea 06/13/23 [Rx Last Taken Unknown] Bedside commode #1 ea 07/16/23 [Rx Last Taken Unknown] hydrochlorothiazide 25 mg tablet 25 mg PO DAILY #1 TAB 07/28/23 [Rx Last Taken Unknown] atorvastatin 40 mg tablet 40 mg PO QHS #90 tabs 08/04/23 [Rx Last Taken Unknown] clopidogrel 75 mg tablet (Plavix) 75 mg PO DAILY #90 tabs 08/04/23 [Rx Last Taken Unknown] metoprolol tartrate 25 mg tablet 12.5 mg (1/2 x 25 mg) PO BID #90 tabs 08/04/23 [Rx Last Taken Unknown] fluticasone propionate 50 mcg/actuation nasal spray,suspension 2 spray intranasal DAILY #16 grams 09/08/23 [Rx Last Taken Unknown] cephalexin 500 mg capsule 500 mg PO Q6 #28 CAPSULES 01/12/24 [Rx Last Taken Unknown] Allergy/AdvReac Type Severity Reaction Status Date / Time duloxetine [From Cymbalta] Allergy Intermediate Swelling Verified 10/11/23 06:29 erythromycin base Allergy Nausea/Vom/ Verified 10/11/23 06:29 Diarrhea pregabalin [From Lyrica] Allergy Swelling Verified 10/11/23 06:29 Family History Mother Diabetes Arthritis Heart disease CVA (cerebral vascular accident) Hypertension History of blood transfusion Father Pancreatic cancer Alcoholism Peptic ulcer disease Son Seizures Suicide attempt Surgical History H/O laminectomy History of appendectomy History of appendectomy History of breast biopsy History of colonoscopy (05/01/02) History of foot surgery History of spinal surgery Stented coronary artery (06/03/23) Social History Smoking Status: Former smoker how long ago did patient quit smoking: about 2 months ago alcohol intake: never substance use type: does not use what type of physical activity do you participate in: none seatbelt use: always do you feel safe at home: Yes ROS ROS ED Review of Systems ROS Unobtainable: other Constitutional Constitutional ED: Reports fever(s) and lethargy; Denies chills, sweats or weight loss Eyes Eyes: Denies blurry vision, change in vision or diplopia ENT ENT ED: Denies rhinorrhea or sore throat Cardiovascular Cardiovascular: Denies chest pain, orthopnea or racing heartbeat Respiratory/Chest Respiratory/Chest: Reports dyspnea; Denies cough, dyspnea on exertion, orthopnea or sputum Gastrointestinal Gastrointestinal: Reports nausea; Denies abdominal pain, diarrhea or vomiting Genitourinary Genitourinary ED: Denies dysuria, hematuria or urinary frequency Musculoskeletal Musculoskeletal: Denies arthralgias, back pain, myalgias or neck pain Integumentary Denies abscess, Abrasions or rash Neurologic Neurologic: Reports weakness; Denies headache(s) Psychiatric Psychiatric: Denies anxiety, depression or suicidal thoughts Endocrine Endocrinology: Denies polydipsia, polyphagia or polyuria Hematologic/Lymphatic Hematologic/Lymphatic: Denies easy bleeding, easy bruising or lymphadenopathy Allergic/Immunologic Allergic/Immunologic ED: Denies mouth swelling, tongue swelling or urticaria EXAM Physical Exam Const Vital Signs: 10/11/23 06:21 10/11/23 06:21 Temperature 98.1 F Temperature Source Temporal Pulse Rate 74 Respiratory Rate 20 H Respiratory Effort Normal Respiratory Pattern Normal Blood Pressure 103/36 L Blood Pressure Mean 58 Pulse Ox 95 Oxygen Delivery Method Nasal Cannula Oxygen Flow Rate (L/min) 3 Positive well nourished and well developed General Appearance ED: well developed and NAD HEENT Reports TM's clear and moist mucous membranes normocephalic and atraumatic; Negative for trauma or tenderness Tympanic Membrane ED: Yes TM's clear Eyes PERRL and EOMs intact bilaterally General Eye ED: Negative for pale conjunctiva or scleral icterus Neck no lymphadenopathy, supple and no JVD General: Negative for tenderness Chest Wall inspection of chest normal and palpation of chest normal Chest: Negative for tenderness Resp normal respiratory effort and clear to auscultation bilaterally Effort and Inspection: Negative for respiratory distress or pain with movement Auscultation: Negative for rhonchi, wheezes or diminished lung sounds Cardio regular rate, regular rhythm, S1 normal heart sound, S2 normal heart sound and no murmurs Peripheral Pulses: pulses 2+ throughout GI normal to inspection, nondistended, normoactive bowel sounds, soft to palpation, non-tender, non-distended and no masses Back/Spine no CVA tenderness and no thoracic nor lumbar tenderness Extremity normal to inspection General Extremety ED: Negative for edema General Extremity: Negative for edema Neuro oriented x3, CN's II-XII intact bilaterally, no sensory deficits noted and gait normal Sensorium / Orientation: awake, alert, oriented to person, oriented to place and oriented to time Motor Exam: strength 5/5 throughout and strength abnormal Psych mental status grossly normal Skin no rashes or lesions noted and no wounds MDM MDM MDM Narrative Medical decision making narrative: Presents with generalized weakness after being evaluated yesterday and diagnosed with UTI. IV line established on arrival. She was ordered 500 cc fluid bolus and given Zofran 4 mg IV. EKG ordered as well as lab workup to evaluate for sepsis. She had negative COVID and flu and RSV testing yesterday this will not be repeated. Chest x-ray ordered and pending. Care of patient turned over to morning physician awaiting lab results EKG results and chest x-ray result. Discharge Plan Triage Chief Complaint: Weakness ED Provider: Vidal Wilson Dx/Rx/DC Orders Clinical Impression: Weakness, Acute UTI Prescriptions: No Action melatonin 10 mg capsule 10 mg PO HS PRN (Reason: Sleep) folic acid 1 mg tablet 1 mg PO DAILY methotrexate sodium 2.5 mg tablet 20 mg PO QWEEK Rx Instructions: SUNDAYS pantoprazole 40 mg tablet,delayed release (DR/EC) 40 mg PO DAILY Rx Instructions: in AM lansoprazole 30 mg capsule,delayed release(DR/EC) 30 mg PO DAILY Rx Instructions: in PM Ibsrela 50 mg tablet 50 mg PO DAILY Rx Instructions: must administer immediately before first meal of day/breakfast fluticasone propionate 50 mcg/actuation spray,suspension 2 spray intranasal DAILY Qty: 16 3RF tizanidine 4 MG tablet 4 mg PO QHS 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 polyethylene glycol 3350 17 gram Powder In Packet 17 g PO DAILY Qty: 0 0RF oxymetazoline [Nasal [place] (oxymetazoline)] 0.05 % [place],Non-Aerosol 2 spray NASAL X1 PRN (Reason: NASAL CONGESTION) Qty: 0 0RF miconazole nitrate [Desenex] 2 % Powder 1 applic topical BID Qty: 0 0RF Protocol: *Topical Application Instructions APPLICATION INSTRUCTIONS: APPLY TO GROIN AND FOLDS aspirin 81 mg Tablet,Chewable 81 mg PO DAILY@0800 Qty: 0 0RF potassium chloride 20 mEq packet 20 meq PO DAILY Qty: 30 0RF hydrocodone-acetaminophen 10-325 mg tablet 0.5 tab PO BID 3 Days Qty: 6 0RF buprenorphine 15 mcg/hour patch weekly 1 patch transdermal Q7D Qty: 4 0RF Rx Instructions: will need new patch on the . cephalexin [cephalexin] 500 mg capsule 500 mg PO Q6 Qty: 28 0RF (DME) Bedside commode See Rx Instructions .Route .MEDSUPPLY Qty: 1 0RF Rx Instructions: As directed hydrochlorothiazide 25 mg tablet 25 mg PO DAILY Qty: 1 0RF atorvastatin 40 mg tablet 40 mg PO QHS Qty: 90 3RF clopidogrel [Plavix] 75 mg tablet 75 mg PO DAILY Qty: 90 3RF metoprolol tartrate 25 mg tablet 12.5 mg PO BID Qty: 90 3RF Primary Care Provider: Pedro Williamson Referrals: Pedro Williamson, DO [Primary Care Provider] -
[2023-10-11] MEDS: Ondansetron 4 MG/2 ML Vial IV (06:49)
[2023-10-11] MEDS: 0.9% Normal Saline (500mL Bag) 500 ML 1000 ML IV (06:49)
[2023-10-11 07:06] LABS: Absolute Neutrophil Count 8.9 X10^3/uL (2.0-7.7); Basophil# 0.04 X10^3/uL; Basophil% 0.3 % (0-1); Eosinophil# 0.04 X10^3/uL; Eosinophils% 0.3 % (0-5); Hematocrit 31.7 % (37-47); Hemoglobin 10.3 g/dL (12.0-15.0); Lymphocyte % 8.1 % (19-41); Mean Corp Hgb Conc 32.5 g/dL (32-36); Mean Corpuscular Hgb 32.1 pg (27.0-32.0); Mean Corpuscular Volume 98.8 fL (81-99); Mean Platelet Vol. 10.7 fl (6.2-12.0); Monocyte% 18.5 % (0-10); NRBC Flagged by Analyzer 0 % (0-5); Neutrophil % 71.7 % (47-70); POSITIVE DIFFERENTIAL YES; Platelet Count 208 K/mm3 (150-450); RBC Distribution Width CV 15.2 % (11.6-14.6); RBC Distribution Width SD 54.4 fl (35.1-43.9); Red Blood Count 3.21 M/mm3 (4.2-5.4); White Blood Count 12.4 K/mm3 (4.4-11.0)
[2023-10-11 07:09] LABS: Differential Indicated SCAN CRITERIA MET
[2023-10-11 07:17] LABS: Bacteria 0 SEEN /hpf (None Seen); Mucous, Urine 0 SEEN /hpf (<or=2+); Red Blood Cells-Urine 0 SEEN /hpf (0-5); Squamous Epithelial Cells - UA 0 SEEN /hpf (5-10)
--- OUTSIDE RECORDS SUMMARY | 2023-10-11 07:27 | XMS RPT_ITS | CCD ---
Author Name Unknown Address [address] [place] [address] Organization [facility] Care Team Providers Care Cable Inspector Name Role Phone Ira Rajput Primary Care Provider [phone] RIAN LECHUGA Attending Unavailable RIAN LECHUGA Primary Care Unavailable RIAN LECHUGA Admitting Unavailable Ira Rajput DO Primary Care Provider Sandeep BETANCUR Iradanielle Zambrano Primary Care Provid er Sandeep BETANCUR [place] Juan Manuel Primary Care Provid er Sandeep BETANCUR [place] Manuel Primary Care Provid er RENETTA RAJPUTLAND JUAN MANUEL Primary Care [facility] Care Scarlet RAJPUT GREENBRIER JUAN MANUEL Attending Scarlet [facility] Scarlet RAJPUT GREENBRIER JUAN MANUEL Primary Care WALESKA Finley Referring Unavailable Allergies Allergy Classification Reported Allergen(s) Allergy Type Date of Onset Reaction(s) Facility (3 sources) DULoxetine Drug Allergy 10-14-2019 Nausea And Vomiting [facility] Work Phone: (20 sources) Erythromycin; Translations: [ERYTHROMYCIN] Drug Allergy 10-14-2019 Nausea And Vomiting, Unknown [facility] Work Phone: (20 sources) pregabalin; Translations: [PREGABALIN] Drug Allergy 08-27-2018 Swelling, Unknown [facility] Work Phone: (18 sources) DULoxetine; Translations: [DULOXETINE] Drug Allergy 08-27-2018 Vomiting [facility] (18 sources) rofecoxib; Translations: [ROFECOXIB] Drug Allergy 11-13-2016 [facility] Medications Current Medications Medication Drug Class(es) Dates Sig (Normalized) Sig (Original) acetaminophen 500 mg oral tablet (2 sources) Start: 11-26-2019 End: 11-26-2019 acetaminophen (TYLENOL) tablet 1,000 mg Tnsxhsk-Dqbsszglc-Dpc ortega D (CALCIUM 1200+D3 PO) (3 sources) take 1200 mg by mouth twice daily Calcium-Magnesium- Vitamin D (CALCIUM 1200+D3 PO) Take 1,200 mg by mouth 2 times daily 0 Active cholecalciferol 2000 unt oral tablet (1 source) Vitamin D Start: 11-26-2019 take 2000 [IU] by mouth twice daily 2,000 Units, Oral, 2 TIMES DAILY, First dose on Fri11/26/19 at 2100 ciprofloxacin 500 mg oral tablet (1 source) Quinolone Antimicrobial Start: 02-22-2022 End: 03-08-2022 take 1 tablet by mouth twice daily ciprofloxacin HCl (CIPRO) 500 mg tablet Take 1 tablet by mouth twice daily for 14 days. 14 tablet 0 02/22/2022 03/08/2022 Active Completed/Discontinued Medications Medication Drug Class(es) Dates Sig (Normalized) Sig (Original) acetaminophen 325 mg / HYDROcodone bitartrate 10 mg oral tablet (15 sources) Opioid Agonist Start: 03-26-2021 take 1 tablet by mouth once daily HYDROcodone-Aceta minophen (NORCO) 10-325 mg per tablet Take 1 tablet by mouth once daily. 0 03/26/2021 Active Problems Active Problems Problem Classification Problem Date Documented Date Episodic/Chronic Diverticulosis and diverticulitis (16 sources) Diverticulitis; Translations: [Diverticulitis of intestine, part unspecified, without perforation or abscess without bleeding] Onset: 11-13-2016 11-13-2016 Chronic Esophageal disorders (20 sources) Gastroesophageal reflux disease; Translations: [Gastro-esophageal reflux disease without esophagitis] Onset: 11-13-2016 11-13-2016 Chronic Essential hypertension (20 sources) Hypertensive disorder; Translations: [Essential (primary) hypertension] Onset: 11-13-2016 10-20-2020 Chronic Mycoses (1 source) Candidiasis of vagina; Translations: [Vaginal yeast infection] Episodic Other acquired deformities (2 sources) Lumbar spondylolisthesis; Translations: [Spondylolisthesis of lumbar region] Onset: 11-26-2019 11-26-2019 Other connective tissue disease (2 sources) Swelling of lower limb; Translations: [Other specified soft tissue disorders] 04-15-2023 Episodic Other connective tissue disease (1 source) Other specified soft tissue disorders; Translations: [Leg swelling] Onset: 04-16-2023 Episodic Other inflammatory condition of skin (3 sources) Arthropathic psoriasis, unspecified; Translations: [ARTHROPATHIC PSORIASIS UNSPECIFIED] Onset: 12-15-2020 Chronic Other inflammatory condition of skin (12 sources) Psoriasis; Translations: [Psoriasis, unspecified] Onset: 04-18-2022 Chronic Other nutritional; endocrine; and metabolic disorders (12 sources) Simple obesity ; Translations: [Other obesity due to excess calories] Onset: 11-13-2016 11-13-2016 Chronic Other nutritional; endocrine; and metabolic disorders (4 sources) Obesity caused by energy imbalance; Translations: [Other obesity due to excess calories] Onset: 11-13-2016 11-13-2016 Chronic Other nutritional; endocrine; and metabolic disorders (1 source) Other disorders of intestinal carbohydrate absorption; Translations: [Glucose intolerance] Onset: 10-07-2022 Chronic Other upper respiratory disease (17 sources) Seasonal allergy; Translations: [Other seasonal allergic rhinitis] Onset: 04-19-2021 04-19-2021 Chronic Spondylosis; intervertebral disc disorders; other back problems (20 sources) Displacement of cervical intervertebral disc; Translations: [Other cervical disc displacement, unspecified cervical region] Onset: 01-19-2016 01-19-2016 Chronic Unclassified (1 source) Vaginal yeast infection; Translations: [Vaginal yeast infection] Onset: 10-07-2022 Past or Other Problems Problem Classification Problem Date Documented Date Episodic/Chronic Bacterial infection; unspecified site (1 source) Unspecified staphylococcus as the cause of diseases classified elsewhere; Translations: [Staph infection] Onset: 10-07-2022 Episodic Diabetes mellitus without complication (16 sources) Increased glucose level; Translations: [Other abnormal glucose] Onset: 10-19-2021 10-19-2021 Episodic Other acquired deformities (11 sources) Lumbar spondylolisthesis; Translations: [Spondylolisthesis, lumbar region] Onset: 11-26-2019 04-18-2022 Episodic Other non-traumatic joint disorders (1 source) Bilateral hip joint pain Episodic Other non-traumatic joint disorders (16 sources) Pain in right hip joint; Translations: [Pain in right hip] Onset: 01-19-2016 01-19-2016 Episodic Other screening for suspected conditions (not mental disorders or infectious disease) (16 sources) Patient encounter status; Translations: [Encounter for screening for other suspected endocrine disorder] Onset: 04-19-2021 10-19-2021 Episodic Residual codes; unclassified (16 sources) Tobacco use and exposure - finding; Translations: [Tobacco use] Onset: 11-13-2016 11-13-2016 Episodic Residual codes; unclassified (11 sources) History of lumbar laminectomy; Translations: [Other specified postprocedural states] Onset: 04-18-2022 04-18-2022 Episodic Spondylosis; intervertebral disc disorders; other back problems (20 sources) Spinal stenosis of lumbar region; Translations: [Radicular syndrome of lower limbs] Onset: 01-19-2016 Episodic Results Test Name Value Interpretation Reference Range Facil ity Vital Signs Date Time Vital Sign Value Performing Clinician Facility 04-15-2023 17:50-0400 Body temperature 97.59 [degF] Waleska David APRN.FIREMAN Work Phone: [facility] 04-15-2023 17:50-0400 Body weight 101.61 kg Waleska David APRN.FIREMAN Work Phone: [facility] 04-15-2023 17:50-0400 Diastolic blood pressure 76 mm[Hg] Waleska David APRN.FIREMAN Work Phone: [facility] 04-15-2023 17:50-0400 Heart rate 98 /min Waleska David SAP BUSINESS ANALYST.FIREMAN Work Phone: [facility] 04-15-2023 17:50-0400 Respiratory rate 18 /min Waleska David APRN.FIREMAN Work Phone: [facility] 04-15-2023 17:50-0400 SaO2% (BldA) [Mass fraction] 95 % Waleska David SAP BUSINESS ANALYST.FIREMAN Work Phone: [facility] 04-15-2023 17:50-0400 Systolic blood pressure 144 mm[Hg] Waleska David APRN.FIREMAN Work Phone: [facility] 04-18-2022 14:40-0400 Body height 162.6 cm [place] Sandeep DO Work Phone: [facility] 04-18-2022 14:40-0400 Body temperature 98.01 [degF] Ira Sandeep DO Work Phone: [facility] 04-18-2022 14:40-0400 Body weight 98.43 kg [place] Sandeep DO Work Phone: [facility] 04-18-2022 14:40-0400 Diastolic blood pressure 80 mm[Hg] Ira Sandeep DO Work Phone: [facility] 04-18-2022 14:40-0400 Heart rate 101 /min [place] Sandeep DO Work Phone: [facility] 04-18-2022 14:40-0400 SaO2% (BldA) [Mass fraction] 96 % Ira Sandeep DO Work Phone: [facility] 04-18-2022 14:40-0400 Systolic blood pressure 120 mm[Hg] [place] Sandeep DO Work Phone: [facility] 11-29-2019 10:05-0500 Body Temperature 97.59 [degF] Vic [employer] 11-29-2019 10:05-0500 BP Diastolic 85 mm[Hg] [facility] [place] 11-29-2019 10:05-0500 BP Systolic 150 mm[Hg] [facility] [place] 11-29-2019 10:05-0500 Pulse (Heart Rate) 87 /min [facility] [place] 11-29-2019 10:05-0500 Pulse Oximetry 96 % [facility] [place] 11-29-2019 10:05-0500 Respiratory Rate 16 /min [facility] [employer] 11-26-2019 09:25-0500 BMI (Body Mass Index) 39.55 kg/m2 Vic Brown [facility], [place] 11-26-2019 09:25-0500 Body weight 106.14 kg [facility] Stephanie [facility] [place] 11-26-2019 09:25-0500 Height 163.8 cm Vic Brown [facility] [place] 11-19-2019 14:28-0500 Body Temperature 97.39 [degF] [facility] [place] 11-19-2019 14:28-0500 BP Diastolic 77 mm[Hg] [facility] [place] 11-19-2019 14:28-0500 BP Systolic 142 mm[Hg] [facility] [place] 11-19-2019 14:28-0500 Pulse (Heart Rate) 97 /min Vic Brown [facility] 11-19-2019 14:28-0500 Pulse Oximetry 100 % [facility] [place] 11-19-2019 14:01-0500 BMI (Body Mass Index) 39.82 kg/m2 Vic Brown [facility] 11-19-2019 14:01-0500 Body weight 105.23 kg [facility] [place] 11-19-2019 14:01-0500 Height 162.6 cm [facility] [place] 11-19-2019 14:01-0500 Respiratory Rate 16 /min Vic Brown [place], [place] Encounters Encounter Date Encounter Type Care Provider Facility Start: 08-03-2023 Refill [place] Lyric Rajput DO Work Phone: [facility] [place] Procedures Date Procedure Procedure Detail Performing Clinician Start: 04-16-2023 Dup-scan xtr veins unilateral/limited study Waleska David APRN.FIREMAN Work Phone: Start: 04-18-2022 Adult depression scr eening assessment [facility] DO Work Phone: Start: 10-29-2021 Lipid 1996 panel - S sofia or Plasma [facility] DO Work Phone: Start: 05-10-2021 Mammography [place] O liverio DO Work Phone: Start: 10-20-2020 Adult depression scr eening assessment [place] Sandeep DO Work Phone: Start: 11-28-2019 BASIC METABOLIC PANE L W/ REFLEX TO MG FOR LOW K Magydiandra Tuttle Work Phone: Start: 11-27-2019 Blood count complete auto&auto difrntl wbc Magy Tuttle Work Phone: Start: 11-26-2019 OPERATIVE REPORT 3m Sca nning Start: 11-19-2019 Ecg routine ecg w/le ast 12 lds w/i&r [employer] [employer] Work Phone: Start: 11-19-2019 ADD ON LAB TEST Justen [facility] [employer] Work Phone: Start: 11-19-2019 Basic metabolic pane l calcium total [facility] Work Phone: Start: 11-19-2019 Blood count complete automated [employer] [employer] Work Phone: Start: 11-19-2019 Blood typing serologic abo [employer] [employer] Work Phone: Start: 11-19-2019 Hemoglobin glycosyla gilberto a1c [employer] [employer] Work Phone: Plan of Treatment Date Care Activity Detail Author Start: 10-29-2026 Lipid 1996 panel - S sofia or Plasma Lipid Screening [facility] Start: 10-29-2026 LIPID SCREEN LIPID SCREEN [facility] Start: 04-29-2026 Diabetes Screening Diabetes Screenin g [facility] Start: 10-07-2025 DIABETES SCREEN DIABETES SCREEN [facility] Start: 10-29-2024 DIABETES SCREEN DIABETES SCREEN [facility] Start: 10-07-2023 ANNUAL PCP TEAM CASTING SUPERVISOR PREETHI DISEASE VISIT ANNUAL PCP TEAM CHRONIC DISEASE VISIT [facility] Start: 05-30-2023 Covid-19 Vaccine () Covid-19 Vaccine () [facility] Start: 05-30-2023 Influenza vaccination C [facility] Start: 04-18-2023 Adult depression scr eening assessment DEPRESSION SCREENING [facility] Start: 04-18-2023 ANNUAL PCP TEAM CASTING SUPERVISOR PREETHI DISEASE VISIT ANNUAL PCP TEAM CHRONIC DISEASE VISIT [facility] Start: 10-19-2022 ANNUAL PCP TEAM CASTING SUPERVISOR PREETHI DISEASE VISIT ANNUAL PCP TEAM CHRONIC DISEASE VISIT [facility] Start: 10-19-2022 BP CONTROLLED (<130/80) BP CONTROLLE D (<130/80) [facility] Start: 09-29-2022 ADVANCE DIRECTIVE DISCUSSION ADVANCE DIRECTIVE DISCUSSION [facility] Start: 09-29-2022 DEPRESSION ASSESSMENT DEPRESSION ASS ESSMENT [facility] Start: 05-30-2022 Influenza vaccination INFLUENZA (#1) [facility] Start: 05-10-2022 Mammography [facility] Start: 04-25-2022 COVID-19 VACCINE (5 - Booster for Pfizer series) COVID-19 VACCINE (5 - Booster for Pfizer series) [facility] Start: 04-19-2022 BONE DENSITY BONE DENSITY [facility] Immunizations Immunization Date Immunization Notes Care Provider Cyndey orozco 10-08-2022 influenza virus vaccine, unspecified formulation Ira Sandeep DO Work Phone: [facility] 10-11-2021 influenza, high dose seasonal, preservative-free [place] Sandeep DO Work Phone: [facility] 10-11-2021 Influenza, injectabl e, Madin [place] Canine Kidney, preservative free, quadrivalent Ira Sandeep DO Work Phone: [facility] 11-29-2019 influenza, injectabl e, quadrivalent, preservative free Vic Keaton [facility] 11-29-2019 influenza quadrivale nt split vaccine (FLUZONE;FLUARIX;FLULAV AL;AFLURIA) injection 0.5 mL [place], [place] 11-15-2015 pneumococcal conjuga te vaccine, 13 valent [place] Sandeep DO Work Phone: [facility] 09-06-2015 influenza, seasonal, injectable [place] Sandeep DO Work Phone: [facility] 09-06-2015 influenza, seasonal, injectable, preservative free [place] Sandeep DO Work Phone: [facility] 07-29-2015 influenza, seasonal, injectable, preservative free Ira Sandeep DO Work Phone: [facility] 11-29-2014 poliovirus vaccine, inactivated Ira Sandeep DO Work Phone: [facility] Payers Date Payer Category Payer Medicare UHC MEDICARE UHC MEDICARE ADVANTAGE O [id number] 2021-Present [phone] [address] [address] [place] [address] O [id number] 2021 Medicare [id number] 2021 Unknown [id number] 2016 Medicare MEDICARE MEDICAR E PART A AND B xxxxxxxxxxx 2016-Present [phone] [place] [address] xxxxxxxxxxx [id number] 2016 Medicare MEDICARE MEDICAR E A AND B [id number] 2016-[address] [place] [address] Medicare [id number] 1959 Medicare [id number] 1950 Unknown [id number] Social History Date Type Detail Facility Start: 10-14-2019 End: 11-19-2019 Tobacco smoking status NHIS Current some day smoker [facility] Work Phone: History of tobacco use Cigarette Smoker S [facility] Work Phone: Start: 11-19-2019 End: 10-13-2022 Cigarettes smoked current (pack per day) - Reported [facility] Start: 10-14-2019 End: 11-19-2019 Alcohol intake [facility] (finding[facility] Start: 10-14-2019 History SDOH Alcohol Frequency 2 [employer] Work Phone: Start: 10-14-2019 Alcohol Comment once every 2-3 yrs S [employer] Work Phone: Start: 1950 Sex Assigned At Not on file S [employer] Work Phone: Start: 11-13-2016 End: 10-07-2022 Tobacco smoking status NHIS Smokes tobacco daily [facility] Work Phone: Start: 11-13-2016 End: 10-07-2022 Tobacco use and exposure Smokeless tobacco non-user [facility] Work Phone: Start: 10-20-2020 End: 04-15-2023 Alcohol intake Current non-drinker of alcohol (finding) [facility] Start: 11-13-2016 Tobacco Comment 5 cigs per day [facility] Start: 09-29-2021 End: 04-18-2022 Exposure to SARS-CoV-2 (event) Not sure [facility] Start: 04-18-2022 End: 10-07-2022 Tobacco Comment 1-2 cigs per day [facility] Start: 10-13-2022 End: 04-15-2023 Tobacco use panel [facility] Adult Depression Screening Assessment 3 [facility] Start: 2021 Gender identity Identifies as female gender (finding) [facility] Start: 2021 Sexual orientation Heterosexual (fin ding) [facility] Medical Equipment Procedure Code Equipment Code Equipment Origin al Text Equipment Identifier Dates Graft Infuse 18m m Large Ii Bovine Collagen Rhbmp-2 26mm Bone Absorbable - [id number] Start: 11-21-2016 Clinical Notes 10-08-2021 to 08-04-2023 Telephone Encounter - Ofelia Hodge LPN - 08/04/2023 9:04 AM Waleska Lux APRN.MAI - 04/15/2023 6:28 PM EDTTelephone Encounter - Marilu NoMAGGIE linares - 03/25/2023 10:58 AM EDT Note Date & Type Note Facility 08-04-2023 Miscellaneous Notes Multiple attempt have been made. Letter mailed 07/08/23. 30 day given last month with note to pharmacy documented in this encounter [facility] 04-15-2023 Note HNO ID: [id number] Author: Waleska David APRN.MAI Service: ? Author Type: Nurse Practitioner Type: Progress Notes Filed: 04/15/2023 6:31 PM Note Text: Subjective HPI HPI Lucrecia Roberto is a 72 year old female who presents today for CC of left leg swelling. This started months ago/comes goes, much worse past 2 weeks in 1 spot. Denies cp/sob. .Patient presents with: Mass: on left leg x years increased x 2 weeks, pain in outside ankle PAST MEDICAL HISTORY Diagnosis Date Diverticulitis GERD (gastroesophageal reflux disease) HTN (hypertension) Low back pain Obesity Tobacco use PAST SURGICAL HISTORY Procedure Laterality Date APPENDECTOMY LAMINECTOMY W/O FFD 09/30 VERT SEG LUMBAR 08/2015 S PROBE PERC LUMBAR DISCECTOMY 11/2015 ALLERGIES Vioxx [Rofecoxib], Pregabalin, Duloxetine, and Erythromycin MEDICATIONS lansoprazole (PREVACID) 30 mg capsule take 1 capsule by mouth once daily clobetasol (TEMOVATE) 0.05 % cream Apply to rash bid prn hydroCHLOROthiazide 25 mg tablet take 1 tablet by mouth once daily losartan (COZAAR) 50 mg tablet take 1 tablet by mouth once daily tenapanor (IBSRELA) 50 mg tablet Take 50 mg by mouth twice daily. cetirizine (ZYRTEC) 10 mg tablet Take 10 mg by mouth once daily. pantoprazole DR (PROTONIX) 40 mg tablet Take 40 mg by mouth twice daily. predniSONE (DELTASONE) 5 mg tablet Take 5 mg by mouth once daily. buprenorphine (BUTRANS) 10 mcg/hour New dose 10.5 melatonin 10 mg cap 1 tablet at bedtime as needed docosahexaenoic acid/epa (FISH OIL ORAL) Take by mouth. HYDROcodone-Acetaminophen (NORCO) 10-325 mg per tablet Take 1 tablet by mouth once daily. senna-docusate (SENNA-S) 8.6-50 mg per tablet Take by mouth. methotrexate 2.5 mg tablet Take 2.5 mg by mouth. 8 on friday folic acid 1 mg tablet Take 1 mg by mouth once daily. HUMIRA,CF, PEN 40 mg/0.4 mL pen kit Inject 40 mg subcutaneously one time a week. calcium phosphate dibas/vit D3 (VITAMIN D, WITH CALCIUM, ORAL) Take 2,000 mg by mouth. meloxicam (MOBIC) 15 mg tablet Take 15 mg by mouth once daily. tiZANidine (ZANAFLEX) 4 mg tablet Take 4 mg by mouth every 6 hours as needed. senna (SENOKOT) 8.6 mg tab Take 8.6 mg by mouth twice daily. [place]-3 Fatty Acids-Vitamin E 1,000 mg cap Take 1 capsule by mouth. fluconazole (DIFLUCAN) 150 mg tablet Take 1 tablet by mouth once daily. (Patient not taking: Reported on 04/15/2023) Etanercept (ENBREL) 50 mg/mL (1 mL) injection Inject 50 mg subcutaneously one time a week. (Patient not taking: Reported on 04/15/2023) fluconazole (DIFLUCAN) 200 mg tablet Take 200 mg by mouth once daily. (Patient not taking: Reported on 10/07/2022) sucralfate (CARAFATE) 100 mg/mL suspension take 10 milliliters by mouth three times a day (Patient not taking: Reported on 04/15/2023) amoxicillin-clavulanic acid (AUGMENTIN) 875-125 mg per tablet take 1 tablet by mouth every 12 hours for 7 days (Patient not taking: Reported on 10/07/2022) fluticasone (FLONASE ALLERGY RELIEF) 50 mcg/actuation nasal spray Use 2 Sprays in each nostril once daily. (Patient not taking: Reported on 04/15/2023) fluticasone (FLONASE) 50 mcg/actuation nasal spray fluticasone propionate 50 mcg/actuation nasal spray,suspension instill 1 spray into each nostril once daily (Patient not taking: Reported on 10/07/2022) losartan (COZAAR) 25 mg tablet take 1 tablet by mouth once daily polyethylene glycol 3350 (MIRALAX, GLYCOLAX) 17 gram/dose powder 17 g q 24 HR. (Patient not taking: Reported on 04/15/2023) omeprazole (PRILOSEC) 20 mg capsule Take 20 mg by mouth once daily. FAMILY HISTORY Problem Relation Age of Onset Diabetes Mother Pancreatic Cancer Father Human Immunodeficiency Virus Brother Social History Tobacco Use Smoking status: Every Day Smokeless tobacco: Never Tobacco comments: 1-2 cigs per day Vaping Use Vaping Use: Never used Substance Use Topics Alcohol use: No Drug use: No ROS Objective Blood pressure 144/76, pulse 98, temperature 36.4 ?C (97.6 ?F), resp. rate 18, weight 101.6 kg (224 lb), SpO2 95 %. Physical Exam Constitutional: General: She is not in acute distress. Appearance: She is not toxic-appearing or diaphoretic. HENT: Head: Normocephalic and atraumatic. Cardiovascular: Rate and Rhythm: Normal rate and regular rhythm. Pulses: Dorsalis pedis pulses are 2+ on the left side. Posterior tibial pulses are 2+ on the left side. Heart sounds: Normal heart sounds, S1 normal and S2 normal. Pulmonary: Effort: Pulmonary effort is normal. Breath sounds: Normal breath sounds. Musculoskeletal: Legs: Neurological: Mental Status: She is alert and oriented to person, place, and time. Gait: Gait is intact. ASSESSMENT/PLAN: 1. Leg swelling - ICD9: 729.81, ICD10: M79.89 No ultrasound at time of visit, low suspicion. Call results/notify pcp. - US DVT LOWER LEFT Waleska David APRN.MAI [facility] 04-15-2023 History of Present illness Narrative Subjective HPI HPI Lucrecia Roberto is a 72 year old female who presents today for CC of left leg swelling. This started months ago/comes goes, much worse past 2 weeks in 1 spot. Denies cp/sob. .Patient presents with: Mass: on left leg x years increased x 2 weeks, pain in outside ankle PAST MEDICAL HISTORY Diagnosis Date Diverticulitis GERD (gastroesophageal reflux disease) HTN (hypertension) Low back pain Obesity Tobacco use PAST SURGICAL HISTORY Procedure Laterality Date APPENDECTOMY LAMINECTOMY W/O FFD 1/2 VERT SEG LUMBAR 08/2015 S PROBE PERC LUMBAR DISCECTOMY 11/2015 ALLERGIES Vioxx [Rofecoxib], Pregabalin, Duloxetine, and Erythromycin MEDICATIONS lansoprazole (PREVACID) 30 mg capsule take 1 capsule by mouth once daily clobetasol (TEMOVATE) 0.05 % cream Apply to rash bid prn hydroCHLOROthiazide 25 mg tablet take 1 tablet by mouth once daily losartan (COZAAR) 50 mg tablet take 1 tablet by mouth once daily tenapanor (IBSRELA) 50 mg tablet Take 50 mg by mouth twice daily. cetirizine (ZYRTEC) 10 mg tablet Take 10 mg by mouth once daily. pantoprazole DR (PROTONIX) 40 mg tablet Take 40 mg by mouth twice daily. predniSONE (DELTASONE) 5 mg tablet Take 5 mg by mouth once daily. buprenorphine (BUTRANS) 10 mcg/hour New dose 10.5 melatonin 10 mg cap 1 tablet at bedtime as needed docosahexaenoic acid/epa (FISH OIL ORAL) Take by mouth. HYDROcodone-Acetaminophen (NORCO) 10-325 mg per tablet Take 1 tablet by mouth once daily. senna-docusate (SENNA-S) 8.6-50 mg per tablet Take by mouth. methotrexate 2.5 mg tablet Take 2.5 mg by mouth. 8 on friday folic acid 1 mg tablet Take 1 mg by mouth once daily. HUMIRA,CF, PEN 40 mg/0.4 mL pen kit Inject 40 mg subcutaneously one time a week. calcium phosphate dibas/vit D3 (VITAMIN D, WITH CALCIUM, ORAL) Take 2,000 mg by mouth. meloxicam (MOBIC) 15 mg tablet Take 15 mg by mouth once daily. tiZANidine (ZANAFLEX) 4 mg tablet Take 4 mg by mouth every 6 hours as needed. senna (SENOKOT) 8.6 mg tab Take 8.6 mg by mouth twice daily. [place]-3 Fatty Acids-Vitamin E 1,000 mg cap Take 1 capsule by mouth. fluconazole (DIFLUCAN) 150 mg tablet Take 1 tablet by mouth once daily. (Patient not taking: Reported on 04/15/2023) Etanercept (ENBREL) 50 mg/mL (1 mL) injection Inject 50 mg subcutaneously one time a week. (Patient not taking: Reported on 04/15/2023) fluconazole (DIFLUCAN) 200 mg tablet Take 200 mg by mouth once daily. (Patient not taking: Reported on 10/07/2022) sucralfate (CARAFATE) 100 mg/mL suspension take 10 milliliters by mouth three times a day (Patient not taking: Reported on 04/15/2023) amoxicillin-clavulanic acid (AUGMENTIN) 875-125 mg per tablet take 1 tablet by mouth every 12 hours for 7 days (Patient not taking: Reported on 10/07/2022) fluticasone (FLONASE ALLERGY RELIEF) 50 mcg/actuation nasal spray Use 2 Sprays in each nostril once daily. (Patient not taking: Reported on 04/15/2023) fluticasone (FLONASE) 50 mcg/actuation nasal spray fluticasone propionate 50 mcg/actuation nasal spray,suspension instill 1 spray into each nostril once daily (Patient not taking: Reported on 10/07/2022) losartan (COZAAR) 25 mg tablet take 1 tablet by mouth once daily polyethylene glycol 3350 (MIRALAX, GLYCOLAX) 17 gram/dose powder 17 g q 24 HR. (Patient not taking: Reported on 04/15/2023) omeprazole (PRILOSEC) 20 mg capsule Take 20 mg by mouth once daily. FAMILY HISTORY Problem Relation Age of Onset Diabetes Mother Pancreatic Cancer Father Human Immunodeficiency Virus Brother Social History Tobacco Use Smoking status: Every Day Smokeless tobacco: Never Tobacco comments: 1-2 cigs per day Vaping Use Vaping Use: Never used Substance Use Topics Alcohol use: No Drug use: No ROS Objective Blood pressure 144/76, pulse 98, temperature 36.4 C (97.6 F), resp. rate 18, weight 101.6 kg (224 lb), SpO2 95 %. Physical Exam Constitutional: General: She is not in acute distress. Appearance: She is not toxic-appearing or diaphoretic. HENT: Head: Normocephalic and atraumatic. Cardiovascular: Rate and Rhythm: Normal rate and regular rhythm. Pulses: Dorsalis pedis pulses are 2+ on the left side. Posterior tibial pulses are 2+ on the left side. Heart sounds: Normal heart sounds, S1 normal and S2 normal. Pulmonary: Effort: Pulmonary effort is normal. Breath sounds: Normal breath sounds. Musculoskeletal: Legs: Neurological: Mental Status: She is alert and oriented to person, place, and time. Gait: Gait is intact. ASSESSMENT/PLAN: 1. Leg swelling - ICD9: 729.81, ICD10: M79.89 No ultrasound at time of visit, low suspicion. Call results/notify pcp. - US DVT LOWER LEFT Waleska David APRN.FIREMAN documented in this encounter [facility] 03-25-2023 Miscellaneous Notes Pharmacy faxed requesting the following refill Refill(s) Requested: Requested Prescriptions Pending Prescriptions Disp Refills lansoprazole (PREVACID) 30 mg capsule [Pharmacy Med Name: LANSOPRAZOLE DR 30 MG CAPSULE] 90 capsule 0 Sig: take 1 capsule by mouth once daily ALLERGIES Allergen Reactions Vioxx [Rofecoxib] Swelling Pregabalin Unknown, Swelling Other reaction(s): leg swelling Duloxetine Vomiting Other reaction(s): vomiting Erythromycin Unknown (home) [phone] (cell) Last Office Visit Date: 10/07/2022 Last [facility] Visit: Visit date not found Future Appointment: Visit date not found The patients preferred pharmacy has been captured for this encounter? yes Request is for script(s) to be escript to pharmacy. Marilu Barnes LPN documented in this encounter [facility] 01-22-2023 Miscellaneous Notes Call pharm for refills documented in this encounter [facility] 01-21-2023 Miscellaneous Notes Patient MyChart message requesting the following refill Refill(s) Requested: Requested Prescriptions Pending Prescriptions Disp Refills fluconazole (DIFLUCAN) 150 mg tablet 3 tablet 0 Sig: Take 1 tablet by mouth once daily. ALLERGIES Allergen Reactions Vioxx [Rofecoxib] Swelling Pregabalin Unknown, Swelling Other reaction(s): leg swelling Duloxetine Vomiting Other reaction(s): vomiting Erythromycin Unknown (home) [phone] (cell) Last Office Visit Date: 10/07/2022 Last [facility] Visit: Visit date not found Future Appointment: Visit date not found The patients preferred pharmacy has been captured for this encounter? yes Request is for script(s) to be escript to pharmacy. Marilu Barnes LPN documented in this encounter [facility] 12-25-2022 Miscellaneous Notes Pharmacy faxed requesting the following refill Refill(s) Requested: Requested Prescriptions Pending Prescriptions Disp Refills hydroCHLOROthiazide 25 mg tablet [Pharmacy Med Name: HYDROCHLOROTHIAZIDE 25 MG TAB] 90 tablet 1 Sig: take 1 tablet by mouth once daily ALLERGIES Allergen Reactions Vioxx [Rofecoxib] Swelling Pregabalin Unknown, Swelling Other reaction(s): leg swelling Duloxetine Vomiting Other reaction(s): vomiting Erythromycin Unknown (home) [phone] (cell) Last Office Visit Date: 10/07/2022 Last [facility] Visit: Visit date not found Future Appointment: Visit date not found The patients preferred pharmacy has been captured for this encounter? yes Request is for script(s) to be escript to pharmacy. Ofelia Hodge LPN documented in this encounter [facility] 12-24-2022 Miscellaneous Notes Pharmacy faxed requesting the following refill Refill(s) Requested: Requested Prescriptions Pending Prescriptions Disp Refills lansoprazole (PREVACID) 30 mg capsule [Pharmacy Med Name: LANSOPRAZOLE DR 30 MG CAPSULE] 90 capsule 0 Sig: take 1 capsule by mouth once daily ALLERGIES Allergen Reactions Vioxx [Rofecoxib] Swelling Pregabalin Unknown, Swelling Other reaction(s): leg swelling Duloxetine Vomiting Other reaction(s): vomiting Erythromycin Unknown (home) [phone] (cell) Last Office Visit Date: 10/07/2022 Last [facility] Visit: Visit date not found Future Appointment: Visit date not found The patients preferred pharmacy has been captured for this encounter? yes Request is for script(s) to be escript to pharmacy. Marilu Barnes LPN documented in this encounter [facility] 10-07-2022 Note HNO ID: [id number] Author: Ira Rajput DO Service: ? Author Type: Physician Type: Progress Notes Filed: 10/13/2022 12:52 PM Note Text: [facility] Medicine Lockealvino Rajput DO [address] [place] [address] Date of Evaluation: 10/07/2022 Patient Name: Lucrecia Roberto : 1950 Chief Complaint: Patient presents with: 6 Month Exam Hypertension frequent yeast infections Nursing Intake: There are no exam notes on file for this visit. Subjective Ms. Roberto is a 72 year old female who presents with the following complaint(s): The history is provided by the patient. No production cook was used. Hypertension This is a chronic problem. The current episode started more than 1 year ago. Pertinent negatives include no chest pain, headaches, palpitations or shortness of breath. Patient complains of recurrent vaginal itching and discharge. Review of Systems Constitutional: Negative for fatigue and unexpected weight change. HENT: Negative for nosebleeds. Eyes: Negative for redness and visual disturbance. Respiratory: Negative for apnea, cough and shortness of breath. Cardiovascular: Negative for chest pain, palpitations and leg swelling. Genitourinary: Negative for hematuria. Neurological: Negative for dizziness, weakness, light-headedness, numbness and headaches. Hematological: Does not bruise/bleed easily. Psychiatric/Behavioral: The patient is not nervous/anxious. PAST MEDICAL HISTORY Diagnosis Date Diverticulitis GERD (gastroesophageal reflux disease) HTN (hypertension) Low back pain Obesity Tobacco use PAST SURGICAL HISTORY Procedure Laterality Date APPENDECTOMY LAMINECTOMY W/O FFD 09/30 VERT SEG LUMBAR 08/2015 S PROBE PERC LUMBAR DISCECTOMY 11/2015 FAMILY HISTORY Problem Relation Age of Onset Diabetes Mother Pancreatic Cancer Father Human Immunodeficiency Virus Brother Social History Tobacco Use Smoking status: Every Day Smokeless tobacco: Never Tobacco comments: 1-2 cigs per day Vaping Use Vaping Use: Never used Substance Use Topics Alcohol use: No Drug use: No Current Outpatient Medications Medication Sig Dispense Refill losartan (COZAAR) 50 mg tablet take 1 tablet by mouth once daily 90 tablet 3 Etanercept (ENBREL) 50 mg/mL (1 mL) injection Inject 50 mg subcutaneously one time a week. tenapanor (IBSRELA) 50 mg tablet Take 50 mg by mouth twice daily. clobetasol (TEMOVATE) 0.05 % cream Apply 0.05 % to affected area twice daily. pantoprazole DR (PROTONIX) 40 mg tablet Take 40 mg by mouth twice daily. sucralfate (CARAFATE) 100 mg/mL suspension take 10 milliliters by mouth three times a day predniSONE (DELTASONE) 5 mg tablet Take 5 mg by mouth once daily. fluticasone (FLONASE ALLERGY RELIEF) 50 mcg/actuation nasal spray Use 2 Sprays in each nostril once daily. 1 Each 11 hydroCHLOROthiazide (HYDRODIURIL, ESIDRIX) 25 mg tablet take 1 tablet by mouth once daily 90 tablet 3 buprenorphine (BUTRANS) 10 mcg/hour New dose 10.5 melatonin 10 mg cap 1 tablet at bedtime as needed docosahexaenoic acid/epa (FISH OIL ORAL) Take by mouth. HYDROcodone-Acetaminophen (NORCO) 10-325 mg per tablet 1 - 1.5 tablet as needed losartan (COZAAR) 25 mg tablet take 1 tablet by mouth once daily 90 tablet 0 polyethylene glycol 3350 (MIRALAX, GLYCOLAX) 17 gram/dose powder 17 g q 24 HR. methotrexate 2.5 mg tablet Take 2.5 mg by mouth. 8 on friday folic acid 1 mg tablet Take 1 mg by mouth once daily. calcium phosphate dibas/vit D3 (VITAMIN D, WITH CALCIUM, ORAL) Take 2,000 mg by mouth. meloxicam (MOBIC) 15 mg tablet Take 15 mg by mouth once daily. omeprazole (PRILOSEC) 20 mg capsule Take 20 mg by mouth once daily. tiZANidine (ZANAFLEX) 4 mg tablet Take 4 mg by mouth every 6 hours as needed. senna (SENOKOT) 8.6 mg tab Take 8.6 mg by mouth twice daily. [place]-3 Fatty Acids-Vitamin E 1,000 mg cap Take 1 capsule by mouth. cetirizine (ZYRTEC) 10 mg tablet Take 10 mg by mouth once daily. fluconazole (DIFLUCAN) 150 mg tablet Take 1 tablet by mouth once daily. 3 tablet 0 mupirocin (BACTROBAN) 2 % ointment Apply 1 application to affected area three times daily for 7 days. 30 g 0 lansoprazole (PREVACID) 30 mg capsule take 1 capsule by mouth once daily (Patient not taking: Reported on 10/07/2022) 90 capsule 0 fluconazole (DIFLUCAN) 200 mg tablet Take 200 mg by mouth once daily. (Patient not taking: Reported on 10/07/2022) amoxicillin-clavulanic acid (AUGMENTIN) 875-125 mg per tablet take 1 tablet by mouth every 12 hours for 7 days (Patient not taking: Reported on 10/07/2022) senna-docusate (SENNA-S) 8.6-50 mg per tablet Take by mouth. (Patient not taking: Reported on 10/07/2022) fluticasone (FLONASE) 50 mcg/actuation nasal spray fluticasone propionate 50 mcg/actuation nasal spray,suspension instill 1 spray into e (more content not included)... [facility] 09-25-2022 Miscellaneous Notes Scheduled Pt for 10/07/21 Patient last seen 04/18/22. Please call and schedule patient for an appt. Thank you. Pharmacy faxed requesting the following refill Refill(s) Requested: Requested Prescriptions Pending Prescriptions Disp Refills lansoprazole (PREVACID) 30 mg capsule [Pharmacy Med Name: LANSOPRAZOLE DR 30 MG CAPSULE] 90 capsule 0 Sig: take 1 capsule by mouth once daily ALLERGIES Allergen Reactions Vioxx [Rofecoxib] Swelling Pregabalin Unknown, Swelling Other reaction(s): leg swelling Duloxetine Vomiting Other reaction(s): vomiting Erythromycin Unknown (home) [phone] (cell) Last Office Visit Date: 04/18/2022 Last [facility] Visit: Visit date not found Future Appointment: Visit date not found The patients preferred pharmacy has been captured for this encounter? yes Request is for script(s) to be escript to pharmacy. Ofelia Hodge LPN documented in this encounter [facility] 04-18-2022 History of Present illness Narrative Images from the original note were not included. [facility] Medicine [facility] [address] [place] [address] Date of Evaluation: 04/18/2022 Patient Name: Lucrecia Roberto : 1950 Chief Complaint: Patient presents with: Hypertension GERD Sinus Problem: few weeks - cough, stuffy, clear mucous, Nursing Intake: There are no exam notes on file for this visit. Subjective Ms. Roberto is a 71 year old female who presents with the following complaint(s): The history is provided by the patient. Hypertension This is a chronic problem. The current episode started more than 1 year ago. Pertinent negatives include no chest pain, headaches, palpitations or shortness of breath. GERD She complains of heartburn. She reports no chest pain or no coughing. Pertinent negatives include no fatigue. She has tried a PPI for the symptoms. The treatment provided significant relief. Sinus Problem This is a recurrent problem. The problem occurs daily. Pertinent negatives include no chest pain, coughing, fatigue, headaches, numbness or weakness. Review of Systems Constitutional: Negative for fatigue and unexpected weight change. HENT: Negative for nosebleeds. Eyes: Negative for redness and visual disturbance. Respiratory: Negative for apnea, cough and shortness of breath. Cardiovascular: Negative for chest pain, palpitations and leg swelling. Gastrointestinal: Positive for heartburn. Genitourinary: Negative for hematuria. Neurological: Negative for dizziness, weakness, light-headedness, numbness and headaches. Hematological: Does not bruise/bleed easily. Psychiatric/Behavioral: The patient is not nervous/anxious. PAST MEDICAL HISTORY Diagnosis Date Diverticulitis GERD (gastroesophageal reflux disease) HTN (hypertension) Low back pain Obesity Tobacco use PAST SURGICAL HISTORY Procedure Laterality Date APPENDECTOMY LAMINECTOMY W/O FFD 09/30 VERT SEG LUMBAR 08/2015 S PROBE PERC LUMBAR DISCECTOMY 11/2015 FAMILY HISTORY Problem Relation Age of Onset Diabetes Mother Pancreatic Cancer Father Human Immunodeficiency Virus Brother Social History Tobacco Use Smoking status: Current Every Day Smoker Smokeless tobacco: Never Used Tobacco comment: 1-2 cigs per day Vaping Use Vaping Use: Never used Substance Use Topics Alcohol use: No Drug use: No Current Medications fluconazole (DIFLUCAN) 200 mg tablet Take 200 mg by mouth once daily. pantoprazole DR (PROTONIX) 40 mg tablet Take 40 mg by mouth twice daily. sucralfate (CARAFATE) 100 mg/mL suspension take 10 milliliters by mouth three times a day predniSONE (DELTASONE) 5 mg tablet Take 5 mg by mouth once daily. amoxicillin-clavulanic acid (AUGMENTIN) 875-125 mg per tablet take 1 tablet by mouth every 12 hours for 7 days hydroCHLOROthiazide (HYDRODIURIL, ESIDRIX) 25 mg tablet take 1 tablet by mouth once daily buprenorphine (BUTRANS) 10 mcg/hour apply 1 patch topically to CLEAN, DRY, AND INTACT SKIN REMOVE AND REPLACE every 7 days losartan (COZAAR) 50 mg tablet take 1 tablet by mouth once daily melatonin 10 mg cap 1 tablet at bedtime as needed docosahexaenoic acid/epa (FISH OIL ORAL) Take by mouth. HYDROcodone-Acetaminophen (NORCO) 10-325 mg per tablet 1 - 1.5 tablet as needed senna-docusate (SENNA-S) 8.6-50 mg per tablet Take by mouth. fluticasone (FLONASE) 50 mcg/actuation nasal spray fluticasone propionate 50 mcg/actuation nasal spray,suspension instill 1 spray into each nostril once daily polyethylene glycol 3350 (MIRALAX) 17 gram/dose powder 17 g q 24 HR. methotrexate 2.5 mg tablet Take 2.5 mg by mouth. 8 on friday folic acid 1 mg tablet Take 1 mg by mouth once daily. calcium phosphate dibas/vit D3 (VITAMIN D, WITH CALCIUM, ORAL) Take 2,000 mg by mouth. meloxicam (MOBIC) 15 mg tablet Take 15 mg by mouth once daily. tiZANidine (ZANAFLEX) 4 mg tablet Take 4 mg by mouth every 6 hours as needed. [place]-3 Fatty Acids-Vitamin E (FISH OIL) 1,000 mg cap Take 1 capsule by mouth. cetirizine (ZYRTEC) 10 mg tablet Take 1 tablet by mouth once daily. fluticasone (FLONASE ALLERGY RELIEF) 50 mcg/actuation nasal spray Use 2 Sprays in each nostril once daily. lansoprazole (PREVACID) 30 mg capsule take 1 capsule by mouth once daily losartan (COZAAR) 25 mg tablet take 1 tablet by mouth once daily MARCIA CHRISTIANSON, PEN 40 mg/0.4 mL pen kit Inject 40 mg subcutaneously one time a week. omeprazole (PRILOSEC) 20 mg capsule Take 20 mg by mouth once daily. senna (SENNA) 8.6 mg tab Take 8.6 mg by mouth twice daily. I have confirmed and edited as necessary the past medical, family and social histories, HPI, and ROS obtained by others. Objective BP 120/80 Pulse 101 Temp 98 Ht 5' 4 (1.63m) Wt 217 lb (98.4kg) SpO2 96% BMI 37.23 kg/(m^2). Physical Exam Vitals and nursing note reviewed. Constitutional: General: She is not in acute distress. Appearance: Normal appearance. She is well-developed. She is not ill-appearing. HENT: Head: Normocephalic. Right Ear: Tympanic membrane, ear canal and external ear normal. There is no impacted cerumen. Left Ear: Tympanic membrane, ear canal and external ear normal. There is no impacted cerumen. Nose: Nose normal. Mouth/Throat: Mouth: Mucous membranes are moist. Pharynx: Oropharynx is clear. Uvula midline. No oropharyngeal exudate or posterior oropharyngeal erythema. Eyes: General: Lids are normal. Vision grossly intact. Gaze aligned appropriately. No scleral icterus. Right eye: No discharge. Left eye: No discharge. Extraocular Movements: Extraocular movements intact. Conjunctiva/sclera: Conjunctivae normal. Pupils: Pupils are equal, round, and reactive to light. Neck: Thyroid: No thyroid mass, thyromegaly or thyroid tenderness. Vascular: No carotid bruit. Trachea: Trachea and phonation normal. Cardiovascular: Rate and Rhythm: Normal rate and regular rhythm. Pulses: Normal pulses. Heart sounds: Normal heart sounds. Pulmonary: Effort: Pulmonary effort is normal. Breath sounds: Normal breath sounds. Abdominal: General: Abdomen is flat. Bowel sounds are normal. Palpations: Abdomen is soft. Musculoskeletal: General: Normal range of motion. Right shoulder: Normal. Left shoulder: Normal. Cervical back: Normal, full passive range of motion without pain and neck supple. No tenderness. No spinous process tenderness. Thoracic back: Normal. Lumbar back: Normal. Right knee: Normal. Left knee: Normal. Right lower leg: No edema. Left lower leg: No edema. Lymphadenopathy: Cervical: No cervical adenopathy. Skin: General: Skin is warm and dry. Neurological: General: No focal deficit present. Mental Status: She is alert and oriented to person, place, and time. Mental status is at baseline. Cranial Nerves: Cranial nerves are intact. Sensory: Sensation is intact. Motor: Motor function is intact. Psychiatric: Attention and Perception: Attention and perception normal. Mood and Affect: Mood normal. Speech: Speech normal. Behavior: Behavior normal. Thought Content: Thought content normal. Judgment: Judgment normal. Data Reviewed: No new labs ASSESSMENT/PLAN: 1. Primary hypertension - ICD9: 401.9, ICD10: I10 (primary diagnosis) - good control - Continue current medication(s) - Recommended regular aerobic exercise. - Recommend home blood pressure monitoring, to bring results in on next visit - Goal of BP <130/80 2. Gastroesophageal reflux disease without esophagitis - ICD9: 530.81, ICD10: K21.9 3. Psoriasis - ICD9: 696.1, ICD10: L40.9 4. Seasonal allergies - ICD9: 477.9, ICD10: J30.2 - Start Cetrizine - CETIRIZINE 10 MG TABLET Ira Rajput, DO Return if symptoms worsen or fail to improve. Attestation: Scribe Statement: Nella Tucker am scribing for, and in the presence of, Ira Rajput DO April 18, 2022 2:57 PM. Physician Statement: I, Ira Rajput DO, personally performed the services described in the documentation, as scribed by Kareen Tucker in my presence, and it is both accurate and complete April 18, 2022 3:05 PM. documented in this encounter [facility] 01-03-2022 Miscellaneous Notes Pharmacy faxed requesting the following refill Refill(s) Requested: Pending Prescriptions Disp Refills HYDROCHLOROTHIAZIDE 25 MG TABLET 90 tablet 3 Sig: take 1 tablet by mouth once daily LUZ: Yes ALLERGIES Allergen Reactions Vioxx [Rofecoxib] Swelling Pregabalin Unknown, Swelling Other reaction(s): leg swelling Duloxetine Vomiting Other reaction(s): vomiting Erythromycin Unknown (home) [phone] (cell) Last Office Visit Date: 10/19/2021 Last [facility] Visit: Visit date not found Future Appointment: 04/18/2022 The patients preferred pharmacy has been captured for this encounter? yes Request is for script(s) to be escript to pharmacy. Cathi Nolen LPN documented in this encounter [facility] 01-02-2022 Miscellaneous Notes Patient updated. Script sent diverticulitis documented in this encounter [facility] 10-08-2021 Miscellaneous Notes Pharmacy faxed requesting the following refill Refill(s) Requested: Pending Prescriptions Disp Refills LANSOPRAZOLE 30 MG CAPSULE,DELAYED RELEASE 90 capsule 3 Sig: take 1 capsule by mouth once daily LUZ: Yes LOSARTAN 50 MG TABLET 90 tablet 3 Sig: take 1 tablet by mouth once daily LUZ: Yes ALLERGIES Allergen Reactions Vioxx [Rofecoxib] Swelling Pregabalin Unknown, Swelling Other reaction(s): leg swelling Duloxetine Vomiting Other reaction(s): vomiting Erythromycin Unknown (home) [phone] (cell) Last Office Visit Date: 04/19/2021 Last [facility] Visit: Visit date not found Future Appointment: 10/19/2021 The patients preferred pharmacy has been captured for this encounter? yes Request is for script(s) to be escript to pharmacy. Ofelia Hodge LPN documented in this encounter [facility] documented in this encounter [facility] Work Phone: Evaluation note* Diagnosis Gastroesophageal reflux disease, unspecified whether esophagitis present Essential hypertension Unspecified essential hypertension documented in this encounter [facility] note* Diagnosis Essential hypertension Unspecified essential hypertension documented in this encounter [facility] note* Diagnosis Primary hypertension- Primary Unspecified essential hypertension Gastroesophageal reflux disease without esophagitis Esophageal reflux Psoriasis Other psoriasis Seasonal allergies Allergic rhinitis, cause unspecified documented in this encounter [facility] note* Diagnosis Gastroesophageal reflux disease, unspecified whether esophagitis present documented in this encounter [facility] note* Diagnosis Gastroesophageal reflux disease, unspecified whether esophagitis present documented in this encounter [facility] note* Diagnosis Essential hypertension Unspecified essential hypertension documented in this encounter [facility] note* Diagnosis Vaginal yeast infection Candidiasis of vulva and vagina documented in this encounter [facility] note* Diagnosis Leg swelling- Primary Swelling of limb documented in this encounter [facility] note* Diagnosis Leg swelling Swelling of limb documented in this encounter [facility] note* Diagnosis Gastroesophageal reflux disease, unspecified whether esophagitis present documented in this encounter [facility] for referral (narrative)* Diagnostic Procedure Only (Urgent) - Pending Review Specialty Diagnoses / Procedures Referred By Alvarez lord Referred To Contact US IMAGING Diagnoses Leg swelling Procedures US DVT LOWER LEFT DUP-SCAN XTR VEINS UNILATERAL/LIMITED STUDY Waleska David APRN.FIREMAN [address] [place] [address] Us Imaging Referral ID Status Reason Start Date Expiration Date Visits Requested Visits Authorized [id number] Pending Review Auto-Generat ed Referral 04/15/2023 05/14/2024 1 1 [facility] for referral (narrative)* Diagnostic Procedure Only (Urgent) - Closed Specialty Diagnoses / Procedures Referred By Contac t Referred To Contact US IMAGING Diagnoses Leg swelling Procedures US DVT LOWER LEFT DUP-SCAN XTR VEINS UNILATERAL/LIMITED STUDY Waleska David APRN.FIREMAN [address] [place] [address] Us Imaging Referral ID Status Reason Start Date Expiration Date V isits Requested Visits Authorized [id number] Closed Auto-Generate d Referral 04/15/2023 05/14/2024 1 1 [facility] for visit Narrative* Diagnostic Procedure Only (Urgent) - Closed Specialty Diagnoses / Procedures Referred By Contac t Referred To Contact US IMAGING Diagnoses Leg swelling Procedures US DVT LOWER LEFT DUP-SCAN XTR VEINS UNILATERAL/LIMITED STUDY Waleska David APRN.FIREMAN [address] [place] [address] Us Imaging Referral ID Status Reason Start Date Expiration Date V isits Requested Visits Authorized [id number] Closed Auto-Generate d Referral 04/15/2023 05/14/2024 1 1 [facility] Discharge Instructions * Instructions* Radha Khan RN - 11/19/2019 HOLD FISH OIL (OMEGA 3) FOR 5 DAYS BEFORE SURGERY HOLD MELOXICAM (MOBIC) FOR 3 DAYS BEFORE SURGERY MAY TAKE TYLENOL NEEDED FOR PAIN HOLD HYDROCHLOROTHIAZIDE DAY OF SURGERY ARRIVE 2 HOURS PRIOR TO SURGERY BE AT THE HOSPITAL AT 9 AM Check in at registration using photo ID and insurance card Have a responsible adult with you that will be able to take you home and will be able to stay with you when you are home. If using public transportation a responsible adult must accompany you NO FOOD AFTER MIDNIGHT THE NIGHT BEFORE SURGERY This includes candy, gum, and mints MAY have CLEAR LIQUIDS (WATER, APPLE JUICE, CRANBERRY JUICE, BLACK COFFEE, TEA, CARBONATED POP GATORADE) To drink until arrival time for surgery Wear loose comfortable clean clothing that you can go home in Leave all jewelry and valuables at home No children under the age of 12 permitted Bring printed medication list with you Write the date and times of last dose DO NOT USE alcohol, recreational drugs or tobacco products for 24 hours before surgery Please write down any questions that you may have for your surgeon, anesthesiologist, Etc. documented in this encounter* Discharge Instr - Lab* Annie Astudillo LPN - 11/28/2019 4:11 PM EST Your physician has ordered skilled home care services for you. Your home care will be provided by: [facility] [phone] * Additional Instructions* Gualberto Foley PA-C - 11/29/2019 No lifting greater than 10 pounds for 3 weeks Limit twisting, turning, bending motions at the waist Patient may shower, but do not soak in a tub or apply creams or lotions to incision Patient cannot drive while using opioid pain medications or muscle relaxants Avoid NSAIDS such as Ibuprofen, Advil, Aleve, Naproxen, and Mobic Follow up with Dr. Pugh in 2 weeks documented in this encounter Advance Directives Documents on File Type Date Recorded Patient Prosthetic Dentist Expl anation Advance Directives and Living Will Power of Plastic Cutter Latest Code Status on File Code Status Date Activated Date Inactivated Comments Full Code 11/26/2019 3:15 PM Full Code 11/26/2019 9:21 AM 11/26/2019 3:01 PM Documents on File Type Date Recorded Patient Prosthetic Dentist Expl anation Advance Directives and Living Will Power of Plastic Cutter Summary Purpose Family History No Family History Records FoundNo Family History Records FoundNo Family History Records FoundNo Family History Records FoundNo Family History Records FoundNo Family History Records Found Hospital Course Note Discharge Summary Lucrecia swanson : 1950 ADMIT DATE: 11/26/2019 DISCHARGE DATE: 11/29/2019 PRIMARY CARE PHYSICIAN: IRA RAJPUT DO VISIT STATUS: Admission CODE STATUS: Full Code DISCHARGE DIAGNOSES: Active Problems: Spondylolisthesis of lumbar region Resolved Problems: * No resolved hospital problems. * SURGICAL PROCEDURES: L4-5 DECOMPRESSION, FUSION, PEDICLE SCREW FIXATION, USE OF MEDTRONIC INSTRUMENTATION by Dr Pugh on 11/26/2019. ? HOSPITAL COURSE: The patient was admitted to the hospital on the day of surgery and underwent the above noted procedure. Post-operatively, the patient was transferred to the PACU in stable condition and then to [facility]. They received 24 hours of prophylactic intravenous antibiotics. DVT prophylaxis included SCDs and early ambulation. Diet was advanced, patient was ambulated and able to urinate, and pain was reasonably controlled. Drain was removed. The patient progressed well throughout the hospitalization and was deemed stable for (more content not included)... History of Present Illness * Gualberto Foley PA-C - 11/29/2019 11:12 AM EST S/p L4-5 decompression and fusion Doing well, numbness in legs is improved. Still has some low back and proximal right thigh pain. No complaints Has ambulated and is eating and urinating Alert and oriented Motor strength 5/5 UE and LE except right hip flexor 4/5 Sensation intact to light touch Incision C/D/I, drain out A/P: POD3 S/p L4-5 decompression and fusion Doing well. Has walked with PT and they recommend d/c to home with home health. Plan for d/c to home today. * Trang Hair, SAP BUSINESS ANALYST - FIREMAN - 11/28/2019 1:07 PM EST 11/28/2019 Referring Physician: Vic Pugh MD Subjective: We have been asked to see this 69 y.o. female for complex pain management s/p L5 decompression and fusion. Medical history noted below. Patient is active with comprehensive pain management. Social History Tobacco Use Smoking Status Current Some Day Smoker Packs/day: 0.25 Years: 35.00 Pack years: 8.75 Types: Cigarettes Smokeless Tobacco Never Used Social History Substance and Sexual Activity Alcohol Use Yes Frequency: Monthly or less Comment: once every 2-3 yrs Social History Substance and Sexual Activity Drug Use Not Currently Smoking: Current ETOH: Denies Illicit Drugs: Denies Prescription Drug Abuse: Denies Pain Management: [facility] The patient's medical history and physical assessment, medications, allergies, patient's current medical condition, and labs were reviewed as part ofthis consultation. [x] Patient's Medications have been reviewed. [x] Patient's OARRS report (PDMP) have been reviewed. Objective Findings: Height: 5' 4.5 (163.8 cm) Weight: 234 lb (106.1 kg) BMI (Calculated): 39.6 Vital signs: Blood pressure (!) 98/45, pulse 79, temperature 97.8 F (36.6 C), temperature source Temporal, resp. rate 18, height 5' 4.5 (1.638 m), weight 234 lb (106.1 kg), SpO2 95 %. Lab Results Component Value Date/Time HGB 12.7 11/27/2019 08:50 PM HCT 38.2 11/27/2019 08:50 PM PLT 238 11/27/2019 08:50 PM WBC 10.2 11/27/2019 08:50 PM WBC 10.7 11/17/2015 05:21 AM NA 137 11/28/2019 03:53 AM K 3.7 11/28/2019 03:53 AM BUN 22 (H) 11/28/2019 03:53 AM CREATININE 0.82 11/28/2019 03:53 AM GLUCOSE 97 11/28/2019 03:53 AM Allergies: Lyrica [pregabalin]; Cymbalta [duloxetine hcl]; and Erythromycin Past Medical History: Diagnosis Date Arthritis Constipation Diverticulitis GERD (gastroesophageal reflux disease) High blood pressure UTE (hard of hearing) BOTH EARS AND NO HEARING AID PONV (postoperative nausea and vomiting) Renal cyst Sciatic nerve pain Past Surgical History: Procedure Laterality Date APPENDECTOMY BACK SURGERY 2017 lumbar decompression in 2017, 2 others unsure of when COLONOSCOPY ENDOSCOPY, COLON, DIAGNOSTIC FOOT SURGERY Right PLANTAR FASCITIS INGUINAL HERNIA REPAIR Right ZAC OTHER SURGICAL HISTORY EPIDURAL NERVE BLOCKS OTHER SURGICAL HISTORY 11/26/2019 L4-5 decompression and fusion WISDOM TOOTH EXTRACTION two removed Family History Problem Relation Age of Onset Diabetes Mother Pancreatic Cancer Father Alcohol Abuse Father No Known Problems Brother Patient Active Problem List Diagnosis Spondylolisthesis of lumbar region BENEFITS PROCESSOR: None Pain Management Adjuvants: Acetaminophen 1,000 mg Lidoderm patch Tizanidine Hydromorphone PRN- 1 mg used 11/26 Oxycodone PRN - 40 mg used Assessment: 1. Acute pain s/p L5 decompression and fusion. 2. Chronic pain 3. Opioid Tolerant/Dependent- prescribed [place] [facility] Plan: -Acetaminophen 1,000 mg TID ATC -Oxycodone 5-10 mg PRN -Hydromorphone discontinued- patient states she did not tolerate -Lidoderm patch X2 -Tizanidine for spasms -Patient currently receiving opioids for pain management necessitating a bowel regimen. Recommend initiating scheduled Sennakot-S 8.6/50mg, 1 tablet PO BID. Would also recommend Milk of Magnesia 400mg/5ml, administer 30mL by mouth daily PRN. Will sign off at this time, thank you for allowing us to participate in the care of this patient. Plan discussed with patient who appears to understand and agrees. The Acute Pain Service is available by pager #[phone] Friday-Friday [phone]. For questions oracute issues after hours, please contact hospital rip and groove machine operator for name and pager number of the Pain ManagementProvider TRIPLE VALVE TESTER. [facility] has agreed to see our patients after they are discharged. Patients should be instructed to call [phone]. Please ask patient to sign a medical release andsend medical records to [facility].They will contact the patient with an appointment time. * Robyn Wagner DTR - 11/28/2019 12:01 PM EST Nutrition rescreen completed. Chart reviewed. Patient to be monitored and followed by the diet senior controls technician. * Bishnu Viveros MD - 11/28/2019 11:14 AM EST PROGRESS NOTE SUBJECTIVE: Interval history: Review of System: No CP/SOB No nausea No fever/chills No cough No dizziness No headache No constipation No diarrhea No dysuria No focal weakness No new complains, pain controlled VITALS: BP 137/68 Pulse 74 Temp 97.8 F (36.6 C) (Temporal) Resp 18 Ht 5' 4.5 (1.638 m) Wt 234 lb(106.1 kg) SpO2 95% BMI 39.55 kg/m BLOOD PRESSURE RANGE: Systolic (24hrs), Av , Min:100 , Max:137 ; Diastolic (24hrs), Av, Min:43, Max:68 24HR INTAKE/OUTPUT: Intake/Output Summary (Last 24 hours) at 11/28/2019 1114 Last data filed at 11/28/2019 0355 Gross per 24 hour Intake 700 ml Output 960 ml Net -260 ml PHYSICAL EXAM: General appearance: No apparent distress, appears stated age and cooperative. AOx3 HEENT: Normal cephalic, atraumatic without obvious deformity. PERRL. Extra ocular muscles intact. Conjunctivae/corneas clear. Neck: Supple, No JVD. Trachea midline. No lymphadenopathy. Respiratory: Normal respiratory effort. Clear to auscultation, bilaterally without Rales/Wheezes/Rhonchi. Cardiovascular: Regular rate and rhythm with normal S1/S2 without murmurs, rubs or gallops. Abdomen: Soft, non-tender, non-distended with normal bowel sounds. No rebound or guarding. Musculoskeletal: No clubbing, cyanosis or edema bilaterally. Skin: No rashes or lesions. Neurologic: No focal sensory/motor deficits. Cranial nerves: II-XII intact LABS: Recent Labs 11/27/19 2050 WBC 10.2 HGB 12.7 HCT 38.2 MCV 99.9* PLT 238 Recent Labs 11/28/19 0353 NA 137 K 3.7 CL 103 CO2 26 GLUCOSE 97 BUN 22* CREATININE 0.82 Ionized Calcium: No results found for: IONCA Magnesium: No results found for: MG Phosphorus: No results found for: PHOS LIVER PROFILE:No results for input(s): AST, ALT, BILITOT, ALKPHOS, LABALBU, PROT in the last 72 hours. PT/INR: No results for input(s): PROTIME, INR in the last 72 hours. CARDIAC ENZYMES: No results for input(s): TROPONINI in the last 72 hours. Procalcitonin: No results found for: PROCAL U/A: Lab Results Component Value Date COLORU YELLOW 11/14/2015 PHUR 6.0 11/14/2015 LABCAST 11 HYALINE 11/14/2015 CLARITYU CLOUDY 11/14/2015 SPECGRAV 1.021 11/14/2015 LEUKOCYTESUR 1+ 11/14/2015 LEUKOCYTESUR 8 11/14/2015 UROBILINOGEN 1.0 11/14/2015 BILIRUBINUR NEG 11/14/2015 GLUCOSEU NEG 11/14/2015 Urine Culture: No results for input(s): LABURIN in the last 72 hours. Blood Culture: No results found for: BC IMAGINGS: FL Greater Than 1 Hour (Results Pending) Scheduled Meds: clobetasol Topical BID famotidine 40 mg Oral Daily folic acid 1 mg Oral Daily hydroCHLOROthiazide 25 mg Oral Daily pantoprazole 40 mg Oral QAM AC losartan 25 mg Oral Daily melatonin 10 mg Oral Nightly sennosides-docusate sodium 4 tablet Oral Nightly tiZANidine 4 mg Oral Nightly vitamin D 2,000 Units Oral BID sodium chloride flush 10 mL Intravenous 2 times per day polyethylene glycol 17 g Oral Daily acetaminophen 1,000 mg Oral TID lidocaine 2 patch Transdermal Daily Continuous Infusions: PRN Meds:sodium chloride flush, promethazine OR ondansetron, oxyCODONE OR oxyCODONE DIET GENERAL; ASSESSMENT AND PLAN 1. S/p L4-5 D/F 2. Hypertension 3. Psoriatic arthritis 4. GERD 5. UTE both ears no hearing aid 6. obesity Bp controlled and stable, Continue losartan HCTZ and pepcid Monitor BP Pain control and SCD's, PT will follow Diagnosis Date Arthritis Constipation Diverticulitis GERD (gastroesophageal reflux disease) High blood pressure UTE (hard of hearing) BOTH EARS AND NO HEARING AID PONV (postoperative nausea and vomiting) Renal cyst Sciatic nerve pain Advance Directive: Full Code Discharge planning: TBD Bishnu Viveros MD On 11/28/2019 at 11:14 AM * Drake Pacheco MD - 11/28/2019 10:24 AM EST No co vss bp noted, feeling well, returned to 137 systolic Af 700/985 jennifer 70/40/25, dc'd aaox3 Wound ok fsc b Good sensation Na 137 hct 38.2 plt 238 68f L4-5 dff Oct Neuro stable jennifer out Mobilize Pt Appreciate internal medicine * Trang Bey, PT - 11/27/2019 2:33 PM EST Physical Therapy Facility/Department: [facility] Initial Assessment NAME: Lucrecia Roberto : 1950 Date of Service: 11/27/2019 Discharge Recommendations: Home with Home health PT, Outpatient PT PT Equipment Recommendations Equipment Needed: No Assessment Body structures, Functions, Activity limitations: Decreased functional mobility ;Decreased endurance;Increased pain Assessment: Pt is s/p L4-5 decompression and fusion. Pt currently able to ambulate and perform functional mobility at supervision level. Pt using FWW while pt typically uses a cane. Pt with deconditioning overall and decreased functional mobility due to her decreased activity level prior to surgeryfrom the back pain. Pt would benefit from continued PT services to improve balance, endurance, strength and overall functional mobility. Discharge recommendation to home health PT and eventually OP services. Prognosis: Fair Decision Making: Low Complexity PT Education: PT Role;Plan of Care;Gait Training;Precautions;Goals;General Safety REQUIRES PT FOLLOW UP: No Activity Tolerance Activity Tolerance: Patient limited by fatigue Patient Diagnosis(es): There were no encounter diagnoses. has a past medical history of Arthritis, Constipation, Diverticulitis, GERD (gastroesophageal reflux disease), High blood pressure, UTE (hard of hearing), PONV (postoperative nausea and vomiting), Renal cyst, and Sciatic nerve pain. has a past surgical history that includes back surgery (2017); [place] tooth extraction; Appendectomy; Foot surgery (Right); Colonoscopy; Endoscopy, colon, diagnostic; Inguinal hernia repair (Right); other surgical history; and other surgical history (11/26/2019). Restrictions Restrictions/Precautions Restrictions/Precautions: Fall Risk Required Braces or Orthoses?: No Position Activity Restriction Spinal Precautions: No Bending, No Lifting, No Twisting Subjective General Chart Reviewed: Yes Patient assessed for rehabilitation services?: Yes Family / Caregiver Present: No Diagnosis: s/p L4-5 decompression and fusion on 11/26 Follows Commands: Within Functional Limits Subjective Subjective: Pt presents sitting up on couch in room and agreeable to PT. Pain Screening Patient Currently in Pain: Denies Vital Signs Patient Currently in Pain: Denies Orientation Orientation Overall Orientation Status: Within Normal Limits Social/Functional History Social/Functional History Lives With: Son Type of Home: House Home Layout: One level Home Access: Stairs to enter with rails Entrance Stairs - Number of Steps: 1 Bathroom Shower/Tub: Tub/Shower unit, Shower chair without back Bathroom Equipment: Toilet raiser, Tub transfer bench Bathroom Accessibility: Accessible Home Equipment: Rolling walker, Cane Receives Help From: Family ADL Assistance: Independent Homemaking Assistance: Independent Homemaking Responsibilities: Yes Ambulation Assistance: Independent Transfer Assistance: Independent Active Assistant Clinical Director: Yes Mode of Transportation: Car Objective AROM RLE (degrees) RLE AROM: WFL AROM LLE (degrees) LLE AROM : WFL Strength RLE Strength RLE: WFL Comment: grossly 3+/5 Strength LLE Strength LLE: WFL Comment: grossly 3+/5 Bed mobility Comment: did not assess Transfers Sit to Stand: Supervision Stand to sit: Supervision Ambulation Ambulation?: Yes Ambulation 1 Surface: level tile Device: Rolling Walker Assistance: Supervision Gait Deviations: None Distance: 1000' Comments: Pt able to walk around unit without LOB or any need to rest Balance Sitting - Static: Good Sitting - Dynamic: Good Standing - Static: Good Comments: Pt able to sit on couch and while maintaining spinal precautions lift legs to put on socks/shoes and weight shift. Plan Plan Times per week: Disch PT Safety Devices Type of devices: All fall risk precautions in place, Left in chair, Call light within reach Restraints Initially in place: No AM-PAC Score AM-PAC Inpatient Mobility Raw Score : 18 (11/27/191432) AM-PAC Inpatient T-Scale Score : 43.63 (11/27/191432) Mobility Inpatient CMS 0-100% Score: 46.58 (11/27/191432) Mobility Inpatient CMS G-Code Modifier : CK (11/27/191432) Goals Short term goals Time Frame for Short term goals: Disch PT Patient Goals Patient goals : To dance with her grandson at his wedding Therapy Time Individual Concurrent Group Co-treatment Time In 1355 Time Out 1425 Minutes 30 Timed Code Treatment Minutes: 10 Minutes(gait) Goals and/or treatment plan was established in collaboration with patient/family/other representatives. Trang Bey, PT Drake Sheth MD - 11/27/2019 12:02 PM EST No co vss Af jennifer 205 aaox3 Wound ok fsc b Good sensation 69f L4-5 dff Oct Neuro stable Keep jennifer Mobilize Pt Medicine consult if bp not resolving Yasmeen Jack RPH - 11/27/2019 9:53 AM EST Lucrecia Roberto was ordered [id number]. D. Per [facility] Policy #4005, herbals and certain dietary supplements are automatically discontinued for the duration of the hospital stay. The product remains on the Home Medication List for resumption at discharge unless specifically d iscontinued by the prescriber. If there is a need for acute treatment using this agent, please contact the pharmacy for further assistance. Yasmeen Fish RPh Olga Hernandez RN - 11/26/2019 2:45 PM EST SBAR faxed to [phone]. Report called to LAUREN Rodriguez. VSS, pain tolerable, on 4L NC. SDS lobby called, family updated, aware of patient's bed assignment to , [phone]. documented in this encounter Assessments Diagnosis Spondylolisthesis of lumbar region- Primary Acquired spondylolisthesis Reason for Referral Status Reason Specialty Diagnoses / Procedures Referre d By Contact Referred To Contact Closed Radiology Diagnoses Lumbar stenosis with neurogenic claudication Procedures MRI Lumbar Spine WO Contrast Vic Pugh MD [address] [place] [address] Additional Source Comments INFORMATION SOURCE (unrecogn ized section and content) DATE CREATED AUTHOR AUTHOR'S ORGANIZ ATION 11/30/2019 [facility] DATE CREATED AUTHOR AUTHOR'S ORGANIZ ATION 12/13/2019 [facility] DATE CREATED AUTHOR AUTHOR'S ORGANIZ ATION 12/17/2020 [facility] DATE CREATED AUTHOR AUTHOR'S ORGANIZ ATION 05/01/2023 [facility] DATE CREATED AUTHOR AUTHOR'S ORGANIZ ATION 07/09/2023 [facility] Source Comments (unrecognize d section and content) In the event this informatio n is protected by the Federal Confidentiality of Alcohol and Drug Abuse Patient Records regulations: The Federal rules restrict any use of the information to criminally investigate or prosecute any alcohol or drug abuse patient.[facility] the event this information is protected by the Federal Confidentiality of Alcohol and Drug Abuse Patient Records regulations: The Federal rules restrict any use of the information to criminally investigate or prosecute any alcohol or drug abuse patient.[facility] the event this information is protected by the Federal Confidentiality of Alcohol and Drug Abuse Patient Records regulations: The Federal rules restrict any use of the information to criminally investigate or prosecute any alcohol or drug abuse patient.[facility] the event this information is protected by the Federal Confidentiality of Alcohol and Drug Abuse Patient Records regulations: The Federal rules restrict any use of the information to criminally investigate or prosecute any alcohol or drug abuse patient.[facility] the event this information is protected by the Federal Confidentiality of Alcohol and Drug Abuse Patient Records regulations: The Federal rules restrict any use of the information to criminally investigate or prosecute any alcohol or drug abuse patient.[facility] the event this information is protected by the Federal Confidentiality of Alcohol and Drug Abuse Patient Records regulations: The Federal rules restrict any use of the information to criminally investigate or prosecute any alcohol or drug abuse patient.[facility] the event this information is protected by the Federal Confidentiality of Alcohol and Drug Abuse Patient Records regulations: The Federal rules restrict any use of the information to criminally investigate or prosecute any alcohol or drug abuse patient.[facility] the event this information is protected by the Federal Confidentiality of Alcohol and Drug Abuse Patient Records regulations: The Federal rules restrict any use of the information to criminally investigate or prosecute any alcohol or drug abuse patient.[facility] the event this information is protected by the Federal Confidentiality of Alcohol and Drug Abuse Patient Records regulations: The Federal rules restrict any use of the information to criminally investigate or prosecute any alcohol or drug abuse patient.[facility] the event this information is protected by the Federal Confidentiality of Alcohol and Drug Abuse Patient Records regulations: The Federal rules restrict any use of the information to criminally investigate or prosecute any alcohol or drug abuse patient.[facility] the event this information is protected by the Federal Confidentiality of Alcohol and Drug Abuse Patient Records regulations: The Federal rules restrict any use of the information to criminally investigate or prosecute any alcohol or drug abuse patient.[facility] the event this information is protected by the Federal Confidentiality of Alcohol and Drug Abuse Patient Records regulations: The Federal rules restrict any use of the information to criminally investigate or prosecute any alcohol or drug abuse patient.[facility] the event this information is protected by the Federal Confidentiality of Alcohol and Drug Abuse Patient Records regulations: The Federal rules restrict any use of the information to criminally investigate or prosecute any alcohol or drug abuse patient.[facility] CenterIn the event this information is protected by the Federal Confidentiality of Alcohol and Drug Abuse Patient Records regulations: The Federal rules restrict any use of the information to criminally investigate or prosecute any alcohol or drug abuse patient.[facility] Center[facility] the event this information is protected by the Federal Confidentiality of Alcohol and Drug Abuse Patient Records regulations: The Federal rules restrict any use of the information to criminally investigate or prosecute any alcohol or drug abuse patient.[facility] CenterIn the event this information is protected by the Federal Confidentiality of Alcohol and Drug Abuse Patient Records regulations: The Federal rules restrict any use of the information to criminally investigate or prosecute any alcohol or drug abuse patient.[facility] Reason for Visit (unrecogniz ed section and content) Reason Comments Orders Reason Comments Refill Request Reason Comments Hypertension GERD Sinus Problem few weeks - cough, s tuffy, clear mucous, Reason Comments Refill Request needs appt Reason Onset Date Comments Refill Request 01/21/2023 Reason Comments Mass on left leg x years increased x 2 weeks, pain in outside ankle Reason Comments Refill Request needs appointment Care Teams (unrecognized sec tion and content) Cable Inspector Relationship Specialty Start Date End Date Ira Rajput DO PCP - General Family Practice 01/17/16 Cable Inspector Relationship Specialty Start Date End Date Ira Rajput DO PCP - General Family Practice 01/17/16 Cable Inspector Relationship Specialty Start Date End Date Ira Rajput DO PCP - General Family Practice 01/17/16 Cable Inspector Relationship Specialty Start Date End Date Ira Rajput DO PCP - General Family Practice 01/17/16 Cable Inspector Relationship Specialty Start Date End Date Ira Rajput DO PCP - General Family Medicine 01/17/16 Cable Inspector Relationship Specialty Start Date End Date Ira Rajput DO PCP - General Family Medicine 01/17/16 Cable Inspector Relationship Specialty Start Date End Date Ira Rajput DO PCP - General Family Medicine 01/17/16 Cable Inspector Relationship Specialty Start Date End Date Ira Rajput DO PCP - General Family Medicine 01/17/16 Cable Inspector Relationship Specialty Start Date End Date Ira Rajput DO PCP - General Family Medicine 01/17/16 Cable Inspector Relationship Specialty Start Date End Date Ira Rajput DO PCP - General Family Medicine 01/17/16 Cable Inspector Relationship Specialty Start Date End Date Ira Rajput DO PCP - General Family Medicine 01/17/16 FOR RECORDS PERTAINING TO PATIENTS WHO ARE OR HAVE BEEN ENROLLED IN A CHEMICAL DEPENDENCY/SUBSTANCEABUSE PROGRAM, SOME INFORMATION MAY BE OMITTED. This clinical summary was aggregated from multiple sources. Caution should be exercised in using it in the provision of clinical care. This summary normalizes information from multiple sources, and as a consequence, information in this document may materially change the coding, format and clinical context of patient data. In addition, data may be omitted in some cases. CLINICAL DECISIONS SHOULD BE BASED ON THE PRIMARY CLINICAL RECORDS. [facility]. provides no warranty or guarantee of the accuracy or completeness of information in this document.
[2023-10-11 07:39] LABS: Lactic Acid 1.2 mmol/L (0.4-1.9)
[2023-10-11 07:41] LABS: Color, Urine Yellow (Yellow); Glucose, Dipstick Normal (Normal); Ketone-Dipstick 5 mg/dl (Negative); Leukocyte Esterase-Dipstick 25 /ul (Negative); Nitrite-Dipstick Negative (Negative); Occult Blood-Urine 25 /ul (Negative); Protein-Dipstick 30 mg/dl (Negative); Urine Bilirubin Dipstick Negative (Negative); Urine Clarity Clear (Clear); Urine Urobilinogen Normal (Normal)
[2023-10-11 07:53] LABS: White Blood Cells 10-25 SEEN /hpf (0-5)
[2023-10-11] MEDS: 0.9% Normal Saline (1000mL) 1,000 ML 150 ML IV (08:00)
[2023-10-11 08:52] LABS: Anion Gap 9 (5-15); BUN 14 mg/dL (7-18); BUN/Creat Ratio 18.5 RATIO (10-20); Calcium,Total 9.1 mg/dL (8.5-10.1); Chloride 97 mmol/L (98-107); Creatinine, Serum 0.76 mg/dL (0.55-1.02); EST Glomerular Filtration Rate 80 mL/min (>60); Est Glom Filt Rate - Afr Amer 97 mL/min (>60); Estimated Creatinine Clearance 72.71 ml/min; Glucose 117 mg/dL (74-106); Potassium 2.8 mmol/L (3.5-5.1); Sodium Level 136 mmol/L (136-145); Troponin-I HS 302 pg/mL (3.0-54.0)
--- NOTE | 2023-10-11 09:49 | ED.RN ---
pt refusing to ambulate
--- NOTE | 2023-10-11 10:56 | PCM.HP.STD ---
HPI - General General Date of Admission: 10/11/23 Date of Service: 10/11/23 Chief Complaint: Increased shortness of breath since last Thursday, October 05, 2023 HPI Narrative ISIDRA WARREN, is a 73 F with history of chronic interstitial lung disease follows with Dr. Williamson last clinic visit on September 08, 2023 came to ED for increased shortness of breath for about 1 week. Complain of generalized weakness, body aches not feeling well. Earlier patient was seen in the emergency department yesterday and was diagnosed with UTI and sent home on antibiotic. Patient states she is usually on 2 L of oxygen at rest and increases to 4 L on exertion. For last 1 week she is feeling more short of breath, hard to catch breath and easily tired. She denies chest pain, pressure or tightness. Patient has mild wheezing and occasional cough. Chest x-ray was in ED. Vitals, Labs, chest x-ray and EKG done in the ER reviewed Troponin elevated but she has chronically elevated troponin during previous hospitalizations. Twelve-lead EKG did not show acute change as compared to previous EKG. [facility] Medical History Abrasion Ambulates with cane Arthritis Atherosclerotic heart disease of [place] coronary artery without angina pectoris Back pain Back problem C. difficile colitis Diastolic heart failure Elevated glucose Gastric reflux GERD (gastroesophageal reflux disease) Hearing difficulty High blood pressure High cholesterol History of diverticulitis History of hiatal hernia History of steroid therapy History of ulceration HTN (hypertension) IBS (irritable bowel syndrome) Low back pain Neuropathy Obesity Osteoarthritis Osteopenia Psoriatic arthritis Smoker Uses wheelchair Walker as ambulation aid Wears glasses Home Medications omega-3 fatty acids-fish oil 340 mg-1,000 mg capsule (Fish Oil) 1,000 mg PO DAILY supplment 11/10/15 [History Last Taken 10/11/23] tizanidine 4 mg tablet 4 mg PO QHS 11/10/15 [History Last Taken 11/16/15 21:30] calcium carbonate 600 mg calcium (1,500 mg) tablet 2,000 mg PO DAILY bone health 11/17/15 [History Last Taken 10/11/23] cholecalciferol (vitamin D3) 25 mcg (1,000 unit) tablet (Vitamin D3) 1,000 unit PO BID supplement 11/17/15 [History Last Taken 10/11/23] meloxicam 7.5 mg tablet 15 mg PO DAILY pain 10/14/16 [History Last Taken Unknown] folic acid 1 mg tablet 1 mg PO DAILY 04/05/22 [History Last Taken Unknown] melatonin 10 mg capsule 10 mg PO HS PRN Sleep 04/05/22 [History Last Taken 10/10/23] prednisone 5 mg tablet 1 tab PO DAILY 04/30/22 [History Last Taken Unknown] lansoprazole 30 mg capsule,delayed release 30 mg PO DAILY 05/27/23 [History Last Taken Unknown] methotrexate sodium 2.5 mg tablet 20 mg PO QWEEK 05/27/23 [History Last Taken Unknown] pantoprazole 40 mg tablet,delayed release 40 mg PO DAILY gerd 05/27/23 [History Last Taken Unknown] tenapanor 50 mg tablet (Ibsrela) 50 mg PO DAILY constipation 05/27/23 [History Last Taken Unknown] aspirin 81 mg chewable tablet 81 mg PO DAILY@0800 stent #0 tabs 06/13/23 [Rx Last Taken 10/11/23] buprenorphine 15 mcg/hour weekly transdermal patch 1 patch transdermal Q7D #4 ea 06/13/23 [Rx Last Taken Unknown] hydrocodone 10 mg-acetaminophen 325 mg tablet 0.5 tab PO BID Pain 3 days #6 tabs 06/13/23 [Rx Last Taken Unknown] miconazole nitrate 2 % topical powder (Desenex) 1 applic topical BID #0 grams 06/13/23 [Rx Last Taken 10/10/23] oxymetazoline 0.05 % nasal spray (Nasal Dairy (oxymetazoline)) 2 spray NASAL X1 PRN NASAL CONGESTION #0 mL 06/13/23 [Rx Last Taken 10/10/23] polyethylene glycol 3350 17 gram oral powder packet 17 g PO DAILY #0 ea 06/13/23 [Rx Last Taken 10/10/23] potassium chloride 20 mEq oral packet 20 meq PO DAILY #30 ea 06/13/23 [Rx Last Taken 10/11/23] Bedside commode #1 ea 07/16/23 [Rx Last Taken Unknown] hydrochlorothiazide 25 mg tablet 25 mg PO DAILY #1 TAB 07/28/23 [Rx Last Taken Unknown] atorvastatin 40 mg tablet 40 mg PO QHS #90 tabs 08/04/23 [Rx Last Taken Unknown] clopidogrel 75 mg tablet (Plavix) 75 mg PO DAILY #90 tabs 08/04/23 [Rx Last Taken Unknown] metoprolol tartrate 25 mg tablet 12.5 mg (1/2 x 25 mg) PO BID #90 tabs 08/04/23 [Rx Last Taken Unknown] fluticasone propionate 50 mcg/actuation nasal spray,suspension 2 spray intranasal DAILY #16 grams 09/08/23 [Rx Last Taken Unknown] cephalexin 500 mg capsule 500 mg PO Q6 #28 CAPSULES 10/10/23 [Rx Last Taken 10/10/23] Allergy/AdvReac Type Severity Reaction Status Date / Time duloxetine [From Cymbalta] Allergy Intermediate Swelling Verified 10/11/23 06:29 erythromycin base Allergy Nausea/Vom/ Verified 10/11/23 06:29 Diarrhea pregabalin [From Lyrica] Allergy Swelling Verified 10/11/23 06:29 Family History Mother Diabetes Arthritis Heart disease CVA (cerebral vascular accident) Hypertension History of blood transfusion Father Pancreatic cancer Alcoholism Peptic ulcer disease Son Seizures Suicide attempt Surgical History H/O laminectomy History of appendectomy History of appendectomy History of breast biopsy History of colonoscopy (05/01/02) History of foot surgery History of spinal surgery Stented coronary artery (06/03/23) Social History Smoking Status: Former smoker how long ago did patient quit smoking: about 2 months ago alcohol intake: never substance use type: does not use what type of physical activity do you participate in: none seatbelt use: always do you feel safe at home: Yes ROS ROS Narrative Constitutional: Reports fatigue and weakness. No fever. HEENT: Reports systems reviewed and no addt'l complaints, except as documented Respiratory/Chest: As described in HPI. Increased shortness of breath. CVS: Denies chest pain tightness or pressure. Gastrointestinal: Denies coffee ground emesis, hematemesis or vomiting Genitourinary: Recent UTI. Denies acute burning urination or new urinary tract symptoms Musculoskeletal: Denies acute joint pain or limited range of motion. No acute injury Neurologic: Denies seizure-like symptoms. No acute strokelike symptoms. skin: No ulcer. No rash Endocrinology: Reports systems reviewed and no addt'l complaints, except as documented Hematologic/Lymphatic: Reports systems reviewed and no addt'l complaints, except as documented Rest 14 ROS are negative except as mentioned in HPI Vital Signs Vital Signs Vital Signs: 10/11/23 06:21 10/11/23 06:21 10/11/23 08:00 Temperature 98.1 F Temperature Source Temporal Pulse Rate 74 53 L Respiratory Rate 20 H 18 Respiratory Effort Normal Respiratory Pattern Normal Blood Pressure 103/36 L 96/52 L Blood Pressure Mean 58 66 Pulse Ox 95 99 Oxygen Delivery Method Nasal Cannula Oxygen Flow Rate (L/min) 3 10/11/23 08:30 10/11/23 09:00 10/11/23 09:33 Temperature Temperature Source Pulse Rate 52 L 48 L 49 L Respiratory Rate 18 16 18 Respiratory Effort Respiratory Pattern Blood Pressure 99/52 L 98/55 L 102/51 L Blood Pressure Mean 67 69 68 Pulse Ox 99 99 99 Oxygen Delivery Method Oxygen Flow Rate (L/min) 10/11/23 10:15 10/11/23 10:54 Temperature 98.0 F Temperature Source Oral Pulse Rate 50 L 48 L Respiratory Rate 20 H 18 Respiratory Effort Respiratory Pattern Blood Pressure 99/52 L 103/59 L Blood Pressure Mean 67 73 Pulse Ox 99 98 Oxygen Delivery Method Nasal Cannula Room Air Oxygen Flow Rate (L/min) 2 Weight Weight: 218 lb 7.649 oz Body Mass Index (BMI) 37.5 Physical Exam Narrative General: Alert, Oriented x3, Cooperative HEENT: Atraumatic, PERRLA, EOMI, Normocephalic Oral: Oral mucosa dry. No Gingival or Mucosal Lesions/ Ulcerations Neck: Supple, No JVD, Negative Carotid Bruits Lungs: Air entry diminished in bilateral lung bases. Bilateral inspiratory rales. Hypoxia. Cardiovascular: Regular rate, Regular Rhythm, Normal S1, Normal S2, No murmurs Abdomen: Bowel Sounds Present, Soft, Non Tender, Non-Distended : No renal angle tenderness. No suprapubic tenderness. Extremities: Bilateral nonpitting subtle edema, Capillary Refill Less than 3 Seconds Skin: No rashes, No breakdown Musculoskeletal: No Tenderness to Palpation of Joints or Extremities. ROM full. Neurological: Cranial nerves II-XII grossly intact, DTR 2+/4. No acute focal neurological deficit. Psych/Mental Status: Normal Affect, Appropriate. Results Lab / Micro Data 10/11/23 06:36 10/11/23 06:36 Labs: Laboratory Results - last 24 hr 10/11/23 06:36: WBC 12.4 H, RBC 3.21 L, Hgb 10.3 L, Hct 31.7 L, MCV 98.8, MCH 32.1 H, MCHC 32.5, RDW Std Deviation 54.4 H, RDW Coeff of Sonya 15.2 H, Plt Count 208, MPV 10.7, Immature Gran % (Auto) 1.100 H, Neut % (Auto) 71.7 H, Lymph % (Auto) 8.1 L, Smyth % (Auto) 18.5 H, Eos % (Auto) 0.3, Baso % (Auto) 0.3, Absolute Neuts (auto) 8.9 H, Absolute Lymphs (auto) 1.00, Nucleated RBC % 0, Diff Path Review January, Sodium 136, Potassium 2.8 L, Chloride 97 L, Carbon Dioxide 30.0, Anion Gap 9, BUN 14, Creatinine 0.76, Estim Creat Clear Calc 72.71, Est GFR (MDRD) Af Amer 97, Est GFR (MDRD) Non-Af 80, BUN/Creatinine Ratio 18.5, Glucose 117 H, Lactic Acid 1.2, Calcium 9.1, Troponin I High Sens 302 H* 10/11/23 07:05: Urine Color Yellow, Urine Clarity Clear, Urine pH 6.0, Ur Specific [place] 1.010, Urine Protein 30 H, Urine Glucose (UA) Normal, Urine Ketones 5 H, Urine Occult Blood 25 H, Urine Nitrite Negative, Urine Bilirubin Negative, Urine Urobilinogen Normal, Ur Leukocyte Esterase 25 H, Urine RBC 0 SEEN, Urine WBC 10-25 SEEN, Ur Squamous Epith Cells 0 SEEN, Urine Bacteria 0 SEEN, Urine Mucus 0 SEEN Imagaing Radiology Impression Chest X-Ray 10/11/23 06:38 IMPRESSION: 1. Low lung volumes limit the exam. No consolidations. 2. No acute cardiopulmonary abnormality. Electronically Signed: Steve Bañuelos MD at 7:26 EST , Assessment & Plan Assessment/Plan (1) Acute UTI: (2) Acute viral bronchitis: PLAN: Plan This 71-year-old female being admitted for generalized weakness and increased shortness of breath for about 1 week. 1. Acute rhinovirus viral bronchitis on baseline interstitial lung disease/pulmonary fibrosis with chronic hypoxic respiratory failure: Patient is being admitted in PCU. On baseline O2 requirement 3 L. Respiratory panel shows rhinovirus. Patient is negative for COVID, flu and RSV. Patient follows in pulmonary clinic with Dr. Williamson and had flu vaccine. DuoNeb every 6 hourly. Incentive spirometry and PEP.. Low-sodium diet. Low-dose diuretic as needed. Currently patient looks dehydrated therefore no diuretic. Patient has mild leukocytosis probably from viral bronchitis. 2. Recent diagnosis of UTI on October 10, 2023 with acute hypokalemia and hypomagnesemia: Patient currently denies dysuria or acute change in limited symptoms. UA on 10/10 shows WBC 10-25, 2+ bacteria, 100 LE, positive nitrite. 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 Patient started on IV ceftriaxone. Potassium 2.8, serum magnesium 1.5 and phosphorus 2.5 low normal. Oral Neutra-Phos and IV magnesium replacement ordered. 3. Recent admission in May 2023 for non-STEMI, with eccentric mid segment 70 to 80%r ight coronary artery and nonocclusive coronary disease in the left main, left anterior descending artery, and the circumflex artery. On medical management. Patient on aspirin, Brilinta, metoprolol 25 mg twice daily, losartan 50 mg daily, HCTZ 25 mg daily and atorvastatin 40 mg daily. Echo in May 2023 shows EF 55 to 60%. No significant valvular abnormality reported. Patient has chronically elevated troponin. Twelve-lead EKG individually reviewed and shows chronic T wave inversion in V1 V2 and does not show acute change from previous May 2023 EKG. 1 more troponin ordered. 4. 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 5. Psoriatic arthritis-patient is on methotrexate chronically, this will be continued here. 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 Living will/advanced directive/end of life care: Patient does not have living will or advanced directive. After discussion of benefits/risks procedures involved with full code, DNR CC arrest and DNR CC, the patient opted for full code. But she did not want to be prolonged on ventilator Patient does want artificial life support including intubation, tube feed, ventilator and/chest compression, central venous catheter, vasopressor and DC shock if needed Total time spent in [id number] encounter in discussion of advanced directive 17 minutes. Clinical Impression(s) from Imaging Studies Chest X-Ray 10/11/23 06:38 IMPRESSION: 1. Low lung volumes limit the exam. No consolidations. 2. No acute cardiopulmonary abnormality. Chest X-Ray 06/01/23 18:28 IMPRESSION: Chronic interstitial lung disease. Chest CTA 06/01/23 19:08 IMPRESSION: Chronic interstitial lung disease. No demonstrated pulmonary embolism or arterial dissection. Cholelithiasis. Echocardiogram 06/02/23 02:00 Interpretation Summary The estimated ejection fraction is 55-60 %. No previous study to compare Laboratory Results 10/11/23 06:36: WBC 12.4 H, RBC 3.21 L, Hgb 10.3 L, Hct 31.7 L, MCV 98.8, MCH 32.1 H, MCHC 32.5, RDW Std Deviation 54.4 H, RDW Coeff of Sonya 15.2 H, Plt Count 208, MPV 10.7, Immature Gran % (Auto) 1.100 H, Neut % (Auto) 71.7 H, Lymph % (Auto) 8.1 L, Smyth % (Auto) 18.5 H, Eos % (Auto) 0.3, Baso % (Auto) 0.3, Absolute Neuts (auto) 8.9 H, Absolute Lymphs (auto) 1.00, Nucleated RBC % 0, Diff Path Review January, Sodium 136, Potassium 2.8 L, Chloride 97 L, Carbon Dioxide 30.0, Anion Gap 9, BUN 14, Creatinine 0.76, Estim Creat Clear Calc 72.71, Est GFR (MDRD) Af Amer 97, Est GFR (MDRD) Non-Af 80, BUN/Creatinine Ratio 18.5, Glucose 117 H, Lactic Acid 1.2, Calcium 9.1, Troponin I High Sens 302 H* 10/11/23 07:05: Urine Color Yellow, Urine Clarity Clear, Urine pH 6.0, Ur Specific [place] 1.010, Urine Protein 30 H, Urine Glucose (UA) Normal, Urine Ketones 5 H, Urine Occult Blood 25 H, Urine Nitrite Negative, Urine Bilirubin Negative, Urine Urobilinogen Normal, Ur Leukocyte Esterase 25 H, Urine RBC 0 SEEN, Urine WBC 10-25 SEEN, Ur Squamous Epith Cells 0 SEEN, Urine Bacteria 0 SEEN, Urine Mucus 0 SEEN Charges/Coding Visit Charges Inpatient E&M: 05730 Init Hosp L3 Procedures Hospitalists Procedures: 17880 Advncd Care Plan 30 Min
--- NOTE | 2023-10-11 11:03 | ED.RN ---
continued attempts to locate pumps called floors and supervisor lump room. meds awaiting pump
[2023-10-11] MEDS: Potassium Chloride Oral Tablet 20 MEQ 40 MEQ PO ×2 (11:17→12:42)
[2023-10-11] MEDS: Potassium Chloride 10mEq/100mL 10 MEQ/100 ML IV.SOLN. 100 MEQ IV BOLUS (11:17)
--- OUTSIDE RECORDS SUMMARY | 2023-10-11 11:26 | XMS RPT_ITS | CCD ---
Author Name Unknown Address [address] [place] [address] Organization [facility] Care Team Providers Care First Mate Name Role Phone Ira Rajput Primary Care Provider [phone] RIAN LECHUGA Attending Unavailable RIAN LECHUGA Primary Care Unavailable RIAN LECHUGA Admitting Unavailable Ira Rajput DO Primary Care Provider Sandeep BETANCUR Iradanielle Zambrano Primary Care Provid er Sandeep BETANCUR [place] Juan Manuel Primary Care Provid er Sandeep BETANCUR [place] Juan Manuel Primary Care Provid er RENETTA RAJPUTLAND JUAN MANUEL Primary Care Scarlet RAJPUT [facility] Primary Care Scarlet RAJPUT DUGGER JUAN MANUEL Attending Scarlet RAJPUT [facility] Primary Care Scarlet RAJPUT DUGGER JUAN MANUEL Primary Care WALESKA Finley Referring [...] DULoxetine; Translations: [DULOXETINE] Drug Allergy 08-27-2018 Vomiting [facility] (18 sources) rofecoxib; Translations: [ROFECOXIB] Drug Allergy 11-13-2016 [facility] Medications Current Medications Medication Drug Class(es) Dates Sig (Normalized) Sig (Original) acetaminophen 500 mg oral tablet (2 sources) Start: 11-26-2019 End: 11-26-2019 acetaminophen (TYLENOL) tablet 1,000 mg Fmhydek-Yjrnvusce-Ruk ortega D (CALCIUM 1200+D3 PO) (3 sources) [...] 17:50-0400 Body temperature 97.59 [degF] Waleska David APRN.ASSISTANT EXECUTIVE HOUSEKEEPER Work Phone: [facility] 04-15-2023 17:50-0400 Body weight 101.61 kg Waleska David APRN.ASSISTANT EXECUTIVE HOUSEKEEPER Work Phone: [facility] 04-15-2023 17:50-0400 Diastolic blood pressure 76 mm[Hg] Waleska David APRN.ASSISTANT EXECUTIVE HOUSEKEEPER Work Phone: [facility] 04-15-2023 17:50-0400 Heart rate 98 /min Waleska David POWDER COAT PAINTER.ASSISTANT EXECUTIVE HOUSEKEEPER Work Phone: [facility] 04-15-2023 17:50-0400 Respiratory rate 18 /min Waleska David APRN.ASSISTANT EXECUTIVE HOUSEKEEPER Work Phone: [facility] 04-15-2023 17:50-0400 SaO2% (BldA) [Mass fraction] 95 % Waleska David POWDER COAT PAINTER.ASSISTANT EXECUTIVE HOUSEKEEPER Work Phone: [facility] 04-15-2023 17:50-0400 Systolic blood pressure 144 mm[Hg] Waleska David APRN.ASSISTANT EXECUTIVE HOUSEKEEPER Work Phone: [facility] 04-18-2022 14:40-0400 Body height 162.6 cm [place] Sandeep DO Work Phone: [facility] 04-18-2022 14:40-0400 Body temperature 98.01 [degF] Ira Sandeep DO Work Phone: [facility] 04-18-2022 14:40-0400 Body weight 98.43 kg [place] Sandeep DO Work Phone: [facility] 04-18-2022 14:40-0400 Diastolic blood pressure 80 mm[Hg] Ira Sandeep DO Work Phone: [facility] 04-18-2022 14:40-0400 Heart rate 101 /min [place] Sandeep DO Work Phone: [facility] 04-18-2022 14:40-0400 SaO2% (BldA) [Mass fraction] 96 % Ira Sandeep DO Work Phone: [facility] 04-18-2022 14:40-0400 Systolic blood pressure 120 mm[Hg] [place] Sandeep DO Work Phone: [facility] 11-29-2019 10:05-0500 Body Temperature 97.59 [degF] [place] 11-29-2019 10:05-0500 BP Diastolic 85 mm[Hg] [facility] [place] 11-29-2019 10:05-0500 BP Systolic 150 mm[Hg] [facility] [place] 11-29-2019 10:05-0500 Pulse (Heart Rate) 87 /min Vic [facility] [place] 11-29-2019 10:05-0500 Pulse Oximetry 96 % Vic [facility] [place] 11-29-2019 10:05-0500 Respiratory Rate 16 /min Vic [facility] [place] 11-26-2019 09:25-0500 BMI (Body Mass Index) 39.55 kg/m2 Vic Brown [facility], [place] 11-26-2019 09:25-0500 Body weight 106.14 kg Vic [facility] Stephanie [facility] , [place] 11-26-2019 09:25-0500 Height 163.8 cm Vic Brown [facility] , [place] 11-19-2019 14:28-0500 Body Temperature 97.39 [degF] [facility] [place] 11-19-2019 14:28-0500 BP Diastolic 77 mm[Hg] [facility] [place] 11-19-2019 14:28-0500 BP Systolic 142 mm[Hg] [facility] [place] 11-19-2019 14:28-0500 Pulse (Heart Rate) 97 /min Vic Brown [facility], [place] 11-19-2019 14:28-0500 Pulse Oximetry 100 % [facility] [place] 11-19-2019 14:01-0500 BMI (Body Mass Index) 39.82 kg/m2 Vic Brown [facility], [place] 11-19-2019 14:01-0500 Body weight 105.23 kg [facility] [place] 11-19-2019 14:01-0500 Height 162.6 cm [facility] [place] 11-19-2019 14:01-0500 Respiratory Rate 16 /min Vic Brown [place], [place] Encounters Encounter Date Encounter Type Care Provider Facility Start: 08-03-2023 Refill [place] Lyric Rajput DO Work Phone: [facility] Medicine [place] Procedures Date Procedure Procedure Detail Performing Clinician Start: 04-16-2023 Dup-scan xtr veins unilateral/limited study Waleska David APRN.ASSISTANT EXECUTIVE HOUSEKEEPER Work Phone: Start: 04-18-2022 Adult depression scr eening assessment [facility] DO Work Phone: Start: 10-29-2021 Lipid 1996 panel - S sofia or Plasma [facility] DO Work Phone: Start: 05-10-2021 Mammography [place] O liverio DO Work Phone: Start: 10-20-2020 Adult depression scr eening assessment [place] Sandeep DO Work Phone: Start: 11-28-2019 BASIC METABOLIC PANE L W/ REFLEX TO MG FOR LOW K Magydiandra Tuttle Work Phone: Start: 11-27-2019 Blood count complete auto&auto difrntl wbc Magy Tuttle Work Phone: Start: 11-26-2019 OPERATIVE REPORT 3m Sca nning Start: 11-19-2019 Ecg routine ecg w/le ast 12 lds w/i&r [facility]en Dg [facility] Work Phone: Start: 11-19-2019 ADD ON LAB TEST Justen miner [facility] Work Phone: Start: 11-19-2019 Basic metabolic pane l calcium total Just[facility] Dg [facility] Work Phone: Start: 11-19-2019 Blood count complete automated [facility]en [facility]g [employer] Work Phone: Start: 11-19-2019 Blood typing serologic abo [facility]g [facility] Work Phone: Start: 11-19-2019 Hemoglobin glycosyla gilberto a1c Justen Dg [facility] Work Phone: Plan of Treatment Date Care Activity Detail Author Start: 10-29-2026 Lipid 1996 panel - S sofia or Plasma Lipid Screening [facility] Start: 10-29-2026 LIPID SCREEN LIPID SCREEN [facility] Start: 04-29-2026 Diabetes Screening Diabetes Screenin g [facility] Start: 10-07-2025 DIABETES SCREEN DIABETES SCREEN [facility] Start: 10-29-2024 DIABETES SCREEN DIABETES SCREEN [facility] Start: 10-07-2023 ANNUAL PCP TEAM CIRCLE EDGER PREETHI DISEASE VISIT ANNUAL PCP TEAM CHRONIC DISEASE VISIT [facility] Start: 05-30-2023 Covid-19 Vaccine () Covid-19 Vaccine () [facility] Start: 05-30-2023 Influenza vaccination C [facility] Start: 04-18-2023 Adult depression scr eening assessment DEPRESSION SCREENING [facility] Start: 04-18-2023 ANNUAL PCP TEAM CIRCLE EDGER PREETHI DISEASE VISIT ANNUAL PCP TEAM CHRONIC DISEASE VISIT [facility] Start: 10-19-2022 ANNUAL PCP TEAM CIRCLE EDGER PREETHI DISEASE VISIT ANNUAL PCP TEAM CHRONIC DISEASE VISIT [facility] Start: 10-19-2022 BP CONTROLLED (<130/80) BP CONTROLLE D (<130/80) [facility] Start: 09-29-2022 ADVANCE DIRECTIVE DISCUSSION ADVANCE DIRECTIVE DISCUSSION [facility] Start: 09-29-2022 DEPRESSION ASSESSMENT DEPRESSION ASS ESSMENT [facility] Start: 05-30-2022 Influenza vaccination INFLUENZA (#1) [facility] Start: 05-10-2022 Mammography [facility] Start: 04-25-2022 COVID-19 VACCINE (5 - Booster for Pfizer series) COVID-19 VACCINE (5 - Booster for Pfizer series) [facility] Start: 04-19-2022 BONE DENSITY BONE DENSITY [facility] Immunizations Immunization Date Immunization Notes Care Provider Cydney orozco 10-08-2022 influenza virus vaccine, unspecified formulation Ira Sandeep DO Work Phone: [facility] 10-11-2021 influenza, high dose seasonal, preservative-free [place] Sandeep DO Work Phone: [facility] 10-11-2021 Influenza, injectabl e, Madin Winslow Canine Kidney, preservative free, quadrivalent Ira Sandeep DO Work Phone: [facility] 11-29-2019 influenza, injectabl e, quadrivalent, preservative free Vic Keaton [facility] 11-29-2019 influenza quadrivale nt split vaccine (FLUZONE;FLUARIX;FLULAV AL;AFLURIA) injection 0.5 mL [place], [place] 11-15-2015 pneumococcal conjuga te vaccine, 13 valent [place] Sandeep DO Work Phone: [facility] 09-06-2015 influenza, seasonal, injectable [place] Sandeep DO Work Phone: [facility] 09-06-2015 influenza, seasonal, injectable, preservative free [place] Sandeep DO Work Phone: [facility] 07-29-2015 influenza, seasonal, injectable, preservative free Ira Sandeep DO Work Phone: [facility] 11-29-2014 poliovirus vaccine, inactivated Ira Sandeep DO Work Phone: [facility] Payers Date Payer Category Payer Medicare UHC MEDICARE UHC MEDICARE ADVANTAGE O [id number] 2021-Present [phone] [address] [address] [place] [address] O [id number] 2021 Medicare [id number] 2021 Unknown [id number] 2016 Medicare MEDICARE MEDICAR E PART A AND B xxxxxxxxxxx 2016-Present [phone] [place] [address] xxxxxxxxxxx [id number] 2016 Medicare MEDICARE MEDICAR E A AND B [id number] 2016-[address] [place] [address] Medicare [id number] 1959 Medicare [id number] 1950 Unknown [id number] Social History Date Type Detail Facility Start: 10-14-2019 End: 11-19-2019 Tobacco smoking status NHIS Current some day smoker [facility] Work Phone: History of tobacco use Cigarette Smoker [facility] Work Phone: Start: 11-19-2019 End: 10-13-2022 Cigarettes smoked current (pack per day) - Reported [facility] Start: 10-14-2019 End: 11-19-2019 Alcohol intake [facility] ([facility]: Start: 10-14-2019 History SDOH Alcohol Frequency 2 [employer] [facility] Work Phone: Start: 10-14-2019 Alcohol Comment once every 2-3 yrs [facility] Work Phone: Start: 1950 Sex Assigned At Not on file [facility] Work Phone: Start: 11-13-2016 End: 10-07-2022 Tobacco smoking status NHIS Smokes tobacco daily [facility] Work Phone: Start: 11-13-2016 End: 10-07-2022 Tobacco use and exposure Smokeless tobacco non-user [facility] Work Phone: Start: 10-20-2020 End: 04-15-2023 Alcohol intake Current non-drinker of alcohol (finding) [facility] Start: 11-13-2016 Tobacco Comment 5 cigs per day [facility] Start: 09-29-2021 End: 04-18-2022 Exposure to SARS-CoV-2 (event) Not sure [facility] Start: 04-18-2022 End: 10-07-2022 Tobacco Comment 1-2 cigs per day [facility] Start: 10-13-2022 End: 04-15-2023 Tobacco use panel [facility] Adult Depression Screening Assessment 3 [facility] Start: 2021 Gender identity Identifies as female gender (finding) [facility] Start: 2021 Sexual orientation Heterosexual (fin ding) [facility] Medical Equipment Procedure Code Equipment Code Equipment Origin al Text Equipment Identifier Dates Graft Infuse 18m m Large Ii Bovine Collagen Rhbmp-2 26mm Bone Absorbable - [id number] Start: 11-21-2016 Clinical Notes 10-08-2021 to [...] note to pharmacy documented in this encounter [facility] 04-15-2023 Note HNO ID: [id number] Author: Waleska David APRN.MAI Service: ? Author [...] Take 8.6 mg by mouth twice daily. [place]-3 Fatty Acids-Vitamin E 1,000 mg cap Take [...] US DVT LOWER LEFT Waleska David APRN.MAI [facility] 04-15-2023 History of Present illness Narrative Subjective [...] Take 8.6 mg by mouth twice daily. [place]-3 Fatty Acids-Vitamin E 1,000 mg cap Take [...] - US DVT LOWER LEFT Waleska David APRN.ASSISTANT EXECUTIVE HOUSEKEEPER documented in this encounter [facility] 03-25-2023 Miscellaneous Notes Pharmacy faxed requesting the following refill Refill(s) Requested: Requested Prescriptions Pending Prescriptions Disp Refills lansoprazole (PREVACID) 30 mg capsule [Pharmacy Med Name: LANSOPRAZOLE DR 30 MG CAPSULE] 90 capsule 0 Sig: take 1 capsule by mouth once daily ALLERGIES Allergen Reactions Vioxx [Rofecoxib] Swelling Pregabalin Unknown, Swelling Other reaction(s): leg swelling Duloxetine Vomiting Other reaction(s): vomiting Erythromycin Unknown (home) [phone] (cell) Last Office Visit Date: 10/07/2022 Last [facility] Visit: Visit date not found Future Appointment: Visit date not found The patients preferred pharmacy has been captured for this encounter? yes Request is for script(s) to be escript to pharmacy. Marilu Barnes LPN documented in this encounter [facility] 01-22-2023 Miscellaneous Notes Call pharm for refills documented in this encounter [facility] 01-21-2023 Miscellaneous Notes Patient MyChart message requesting the following refill Refill(s) Requested: Requested Prescriptions Pending Prescriptions Disp Refills fluconazole (DIFLUCAN) 150 mg tablet 3 tablet 0 Sig: Take 1 tablet by mouth once daily. ALLERGIES Allergen Reactions Vioxx [Rofecoxib] Swelling Pregabalin Unknown, Swelling Other reaction(s): leg swelling Duloxetine Vomiting Other reaction(s): vomiting Erythromycin Unknown (home) [phone] (cell) Last Office Visit Date: 10/07/2022 Last [facility] Visit: Visit date not found Future Appointment: Visit date not found The patients preferred pharmacy has been captured for this encounter? yes Request is for script(s) to be escript to pharmacy. Marilu Barnes LPN documented in this encounter [facility] 12-25-2022 Miscellaneous Notes Pharmacy faxed requesting the following refill Refill(s) Requested: Requested Prescriptions Pending Prescriptions Disp Refills hydroCHLOROthiazide 25 mg tablet [Pharmacy Med Name: HYDROCHLOROTHIAZIDE 25 MG TAB] 90 tablet 1 Sig: take 1 tablet by mouth once daily ALLERGIES Allergen Reactions Vioxx [Rofecoxib] Swelling Pregabalin Unknown, Swelling Other reaction(s): leg swelling Duloxetine Vomiting Other reaction(s): vomiting Erythromycin Unknown (home) [phone] (cell) Last Office Visit Date: 10/07/2022 Last [facility] Visit: Visit date not found Future Appointment: Visit date not found The patients preferred pharmacy has been captured for this encounter? yes Request is for script(s) to be escript to pharmacy. Ofelia Hodge LPN documented in this encounter [facility] 12-24-2022 Miscellaneous Notes Pharmacy faxed requesting the following refill Refill(s) Requested: Requested Prescriptions Pending Prescriptions Disp Refills lansoprazole (PREVACID) 30 mg capsule [Pharmacy Med Name: LANSOPRAZOLE DR 30 MG CAPSULE] 90 capsule 0 Sig: take 1 capsule by mouth once daily ALLERGIES Allergen Reactions Vioxx [Rofecoxib] Swelling Pregabalin Unknown, Swelling Other reaction(s): leg swelling Duloxetine Vomiting Other reaction(s): vomiting Erythromycin Unknown (home) [phone] (cell) Last Office Visit Date: 10/07/2022 Last [facility] Visit: Visit date not found Future Appointment: Visit date not found The patients preferred pharmacy has been captured for this encounter? yes Request is for script(s) to be escript to pharmacy. Marilu Barnes LPN documented in this encounter [facility] 10-07-2022 Note HNO ID: [id number] Author: Ira Rajput DO Service: ? Author Type: Physician Type: Progress Notes Filed: 10/13/2022 12:52 PM Note Text: [facility] Medicine Vinsonalvino Rajput DO [address] [place] [address] Date of Evaluation: 10/07/2022 Patient Name: Lucrecia Roberto : 1950 Chief Complaint: Patient presents with: 6 Month Exam Hypertension frequent yeast infections Nursing Intake: There are no exam notes on file for this visit. Subjective Ms. Roberto is a 72 year old female who presents with the following complaint(s): The history is provided by the patient. No speech language therapist was used. Hypertension This is a chronic [...] Take 8.6 mg by mouth twice daily. [place]-3 Fatty Acids-Vitamin E 1,000 mg cap Take [...] spray into e (more content not included)... [facility] 09-25-2022 Miscellaneous Notes Scheduled Pt for 10/07/21 [...] Vomiting Other reaction(s): vomiting Erythromycin Unknown (home) [phone] (cell) Last Office Visit Date: 04/18/2022 Last [facility] Visit: Visit date not found Future Appointment: Visit date not found The patients preferred pharmacy has been captured for this encounter? yes Request is for script(s) to be escript to pharmacy. Ofelia Hodge LPN documented in this encounter [facility] 04-18-2022 History of Present illness Narrative Images from the original note were not included. [facility] Medicine [facility] [address] [place] [address] Date of Evaluation: 04/18/2022 Patient Name: Lucrecia [...] by mouth every 6 hours as needed. [place]-3 Fatty Acids-Vitamin E (FISH OIL) 1,000 mg [...] 2022 3:05 PM. documented in this encounter [facility] 01-03-2022 Miscellaneous Notes Pharmacy faxed requesting the following refill Refill(s) Requested: Pending Prescriptions Disp Refills HYDROCHLOROTHIAZIDE 25 MG TABLET 90 tablet 3 Sig: take 1 tablet by mouth once daily LUZ: Yes ALLERGIES Allergen Reactions Vioxx [Rofecoxib] Swelling Pregabalin Unknown, Swelling Other reaction(s): leg swelling Duloxetine Vomiting Other reaction(s): vomiting Erythromycin Unknown (home) [phone] (cell) Last Office Visit Date: 10/19/2021 Last [facility] Visit: Visit date not found Future Appointment: 04/18/2022 The patients preferred pharmacy has been captured for this encounter? yes Request is for script(s) to be escript to pharmacy. Cathi Nolen LPN documented in this encounter [facility] 01-02-2022 Miscellaneous Notes Patient updated. Script sent diverticulitis documented in this encounter [facility] 10-08-2021 Miscellaneous Notes Pharmacy faxed requesting the [...] Vomiting Other reaction(s): vomiting Erythromycin Unknown (home) [phone] (cell) Last Office Visit Date: 04/19/2021 Last [facility] Visit: Visit date not found Future Appointment: 10/19/2021 The patients preferred pharmacy has been captured for this encounter? yes Request is for script(s) to be escript to pharmacy. Ofelia Hodge LPN documented in this encounter [facility] documented in this encounter [facility] Work Phone: Evaluation note* Diagnosis Gastroesophageal reflux disease, unspecified whether esophagitis present Essential hypertension Unspecified essential hypertension documented in this encounter [facility] note* Diagnosis Essential hypertension Unspecified essential hypertension documented in this encounter [facility] note* Diagnosis Primary hypertension- Primary Unspecified essential hypertension Gastroesophageal reflux disease without esophagitis Esophageal reflux Psoriasis Other psoriasis Seasonal allergies Allergic rhinitis, cause unspecified documented in this encounter [facility] note* Diagnosis Gastroesophageal reflux disease, unspecified whether esophagitis present documented in this encounter [facility] note* Diagnosis Gastroesophageal reflux disease, unspecified whether esophagitis present documented in this encounter [facility] note* Diagnosis Essential hypertension Unspecified essential hypertension documented in this encounter [facility] note* Diagnosis Vaginal yeast infection Candidiasis of vulva and vagina documented in this encounter [facility] note* Diagnosis Leg swelling- Primary Swelling of limb documented in this encounter [facility] note* Diagnosis Leg swelling Swelling of limb documented in this encounter [facility] note* Diagnosis Gastroesophageal reflux disease, unspecified whether esophagitis present documented in this encounter [facility] for referral (narrative)* Diagnostic Procedure Only (Urgent) - Pending Review Specialty Diagnoses / Procedures Referred By Alvarez lord Referred To Contact US IMAGING Diagnoses Leg swelling Procedures US DVT LOWER LEFT DUP-SCAN XTR VEINS UNILATERAL/LIMITED STUDY Waleska David APRN.ASSISTANT EXECUTIVE HOUSEKEEPER [address] [place] [address] Us Imaging Referral ID Status Reason Start Date Expiration Date Visits Requested Visits Authorized [id number] Pending Review Auto-Generat ed Referral 04/15/2023 05/14/2024 1 1 [facility] for referral (narrative)* Diagnostic Procedure Only (Urgent) - Closed Specialty Diagnoses / Procedures Referred By Contac t Referred To Contact US IMAGING Diagnoses Leg swelling Procedures US DVT LOWER LEFT DUP-SCAN XTR VEINS UNILATERAL/LIMITED STUDY Waleska David APRN.ASSISTANT EXECUTIVE HOUSEKEEPER [address] [place] [address] Us Imaging Referral ID Status Reason Start Date Expiration Date V isits Requested Visits Authorized [id number] Closed Auto-Generate d Referral 04/15/2023 05/14/2024 1 1 [facility] for visit Narrative* Diagnostic Procedure Only (Urgent) - Closed Specialty Diagnoses / Procedures Referred By Contac t Referred To Contact US IMAGING Diagnoses Leg swelling Procedures US DVT LOWER LEFT DUP-SCAN XTR VEINS UNILATERAL/LIMITED STUDY Waleska David APRN.ASSISTANT EXECUTIVE HOUSEKEEPER [address] [place] [address] Us Imaging Referral ID Status Reason Start Date Expiration Date V isits Requested Visits Authorized [id number] Closed Auto-Generate d Referral 04/15/2023 05/14/2024 1 1 [facility] Discharge Instructions * Instructions* Radha Khan RN [...] in this encounter* Discharge Instr - Lab* nAnie Astudillo LPN - 11/28/2019 4:11 PM EST Your physician has ordered skilled home care services for you. Your home care will be provided by: [facility] [phone] * Additional Instructions* Gualberto Foley PA-C - [...] Documents on File Type Date Recorded Patient Youth Agent Expl anation Advance Directives and Living Will Power of Game Manager Latest Code Status on File Code Status Date Activated Date Inactivated Comments Full Code 11/26/2019 3:15 PM Full Code 11/26/2019 9:21 AM 11/26/2019 3:01 PM Documents on File Type Date Recorded Patient Youth Agent Expl anation Advance Directives and Living Will Power of Game Manager Summary Purpose Family History No Family History [...] PACU in stable condition and then to [facility]. They received 24 hours of prophylactic intravenous [...] d/c to home today. * Trang Hair, POWDER COAT PAINTER - ASSISTANT EXECUTIVE HOUSEKEEPER - 11/28/2019 1:07 PM EST 11/28/2019 Referring [...] GERD (gastroesophageal reflux disease) High blood pressure [place] (hard of hearing) BOTH EARS AND NO [...] Problem List Diagnosis Spondylolisthesis of lumbar region WOMEN'S LACROSSE COACH: None Pain Management Adjuvants: Acetaminophen 1,000 mg Lidoderm patch Tizanidine Hydromorphone PRN- 1 mg used 11/26 Oxycodone PRN - 40 mg used Assessment: 1. Acute pain s/p L5 decompression and fusion. 2. Chronic pain 3. Opioid Tolerant/Dependent- prescribed [place] [facility] Plan: -Acetaminophen 1,000 mg TID [...] Acute Pain Service is available by pager #[phone] Friday-Friday [phone]. For questions oracute issues after hours, please contact hospital milling/polishing operator for name and pager number of the Pain ManagementProvider RN ACCESS. [facility] has agreed to see our patients after they are discharged. Patients should be instructed to call [phone]. Please ask patient to sign a medical release andsend medical records to [facility].They will contact the patient with an appointment time. * Robyn Wagner DTR - 11/28/2019 12:01 PM EST Nutrition rescreen completed. Chart reviewed. Patient to be monitored and followed by the diet medical delivery technician. * Bishnu Viveros MD - 11/28/2019 [...] Hypertension 3. Psoriatic arthritis 4. GERD 5. [place] both ears no hearing aid 6. obesity Bp controlled and stable, Continue losartan HCTZ and pepcid Monitor BP Pain control and SCD's, PT will follow Diagnosis Date Arthritis Constipation Diverticulitis GERD (gastroesophageal reflux disease) High blood pressure [place] (hard of hearing) BOTH EARS AND NO [...] 11/27/2019 2:33 PM EST Physical Therapy Facility/Department: [facility] Initial Assessment NAME: Lucrecia Roberto : [...] GERD (gastroesophageal reflux disease), High blood pressure, [place] (hard of hearing), PONV (postoperative nausea and vomiting), Renal cyst, and Sciatic nerve pain. has a past surgical history that includes back surgery (2017); [place] tooth extraction; Appendectomy; Foot surgery (Right); Colonoscopy; [...] Ambulation Assistance: Independent Transfer Assistance: Independent Active Pusher Runner: Yes Mode of Transportation: Car Objective AROM [...] 9:53 AM EST Lucrecia Roberto was ordered [id number]. D. Per [facility] Policy #4005, herbals and certain dietary [...] aware of patient's bed assignment to , 6083. documented in this encounter Assessments Diagnosis Spondylolisthesis of lumbar region- Primary Acquired spondylolisthesis Reason for Referral Status Reason Specialty Diagnoses / Procedures Referre d By Contact Referred To Contact Closed Radiology Diagnoses Lumbar stenosis with neurogenic claudication Procedures MRI Lumbar Spine WO Contrast Vic Pugh MD [address] [place] [address] Additional Source Comments INFORMATION SOURCE (unrecogn ized section and content) DATE CREATED AUTHOR AUTHOR'S ORGANIZ ATION 11/30/2019 [facility] DATE CREATED AUTHOR AUTHOR'S ORGANIZ ATION 12/13/2019 [facility] DATE CREATED AUTHOR AUTHOR'S ORGANIZ ATION 12/17/2020 [facility] DATE CREATED AUTHOR AUTHOR'S ORGANIZ ATION 05/01/2023 [facility] DATE CREATED AUTHOR AUTHOR'S ORGANIZ ATION 07/09/2023 [facility] Source Comments (unrecognize d section and content) In the event this informatio n is protected by the Federal Confidentiality of Alcohol and Drug Abuse Patient Records regulations: The Federal rules restrict any use of the information to criminally investigate or prosecute any alcohol or drug abuse patient.[facility] the event this information is protected by the Federal Confidentiality of Alcohol and Drug Abuse Patient Records regulations: The Federal rules restrict any use of the information to criminally investigate or prosecute any alcohol or drug abuse patient.[facility] Institute[facility] the event this information is protected by the Federal Confidentiality of Alcohol and Drug Abuse Patient Records regulations: The Federal rules restrict any use of the information to criminally investigate or prosecute any alcohol or drug abuse patient.[facility] Institute[facility] the event this information is protected by the Federal Confidentiality of Alcohol and Drug Abuse Patient Records regulations: The Federal rules restrict any use of the information to criminally investigate or prosecute any alcohol or drug abuse patient.[facility] Institute[facility] the event this information is protected by the Federal Confidentiality of Alcohol and Drug Abuse Patient Records regulations: The Federal rules restrict any use of the information to criminally investigate or prosecute any alcohol or drug abuse patient.[facility] Institute[facility] the event this information is protected by the Federal Confidentiality of Alcohol and Drug Abuse Patient Records regulations: The Federal rules restrict any use of the information to criminally investigate or prosecute any alcohol or drug abuse patient.[facility] Institute[facility] the event this information is protected by the Federal Confidentiality of Alcohol and Drug Abuse Patient Records regulations: The Federal rules restrict any use of the information to criminally investigate or prosecute any alcohol or drug abuse patient.[facility] Institute[facility] the event this information is protected by the Federal Confidentiality of Alcohol and Drug Abuse Patient Records regulations: The Federal rules restrict any use of the information to criminally investigate or prosecute any alcohol or drug abuse patient.[facility] Institute[facility] the event this information is protected by the Federal Confidentiality of Alcohol and Drug Abuse Patient Records regulations: The Federal rules restrict any use of the information to criminally investigate or prosecute any alcohol or drug abuse patient.[facility] Institute[facility] the event this information is protected by the Federal Confidentiality of Alcohol and Drug Abuse Patient Records regulations: The Federal rules restrict any use of the information to criminally investigate or prosecute any alcohol or drug abuse patient.[facility] Institute[facility] the event this information is protected by the Federal Confidentiality of Alcohol and Drug Abuse Patient Records regulations: The Federal rules restrict any use of the information to criminally investigate or prosecute any alcohol or drug abuse patient.[facility] Institute[facility] the event this information is protected by the Federal Confidentiality of Alcohol and Drug Abuse Patient Records regulations: The Federal rules restrict any use of the information to criminally investigate or prosecute any alcohol or drug abuse patient.[facility] Institute[facility] the event this information is protected by the Federal Confidentiality of Alcohol and Drug Abuse Patient Records regulations: The Federal rules restrict any use of the information to criminally investigate or prosecute any alcohol or drug abuse patient.[facility] InstituteIn the event this information is protected by the Federal Confidentiality of Alcohol and Drug Abuse Patient Records regulations: The Federal rules restrict any use of the information to criminally investigate or prosecute any alcohol or drug abuse patient.[facility] InstituteIn the event this information is protected by the Federal Confidentiality of Alcohol and Drug Abuse Patient Records regulations: The Federal rules restrict any use of the information to criminally investigate or prosecute any alcohol or drug abuse patient.[facility] InstituteIn the event this information is protected by the Federal Confidentiality of Alcohol and Drug Abuse Patient Records regulations: The Federal rules restrict any use of the information to criminally investigate or prosecute any alcohol or drug abuse patient.[facility] Reason for Visit (unrecogniz ed section and [...] Care Teams (unrecognized sec tion and content) First Mate Relationship Specialty Start Date End Date Ira Rajput DO PCP - General Family Practice 01/17/16 First Mate Relationship Specialty Start Date End Date Ira Rajput DO PCP - General Family Practice 01/17/16 First Mate Relationship Specialty Start Date End Date Ira Rajput DO PCP - General Family Practice 01/17/16 First Mate Relationship Specialty Start Date End Date Ira Rajput DO PCP - General Family Practice 01/17/16 First Mate Relationship Specialty Start Date End Date Ira Rajput DO PCP - General Family Medicine 01/17/16 First Mate Relationship Specialty Start Date End Date Ira Rajput DO PCP - General Family Medicine 01/17/16 First Mate Relationship Specialty Start Date End Date Ira Rajput DO PCP - General Family Medicine 01/17/16 First Mate Relationship Specialty Start Date End Date Ira Rajput DO PCP - General Family Medicine 01/17/16 First Mate Relationship Specialty Start Date End Date Ira Rjaput DO PCP - General Family Medicine 01/17/16 First Mate Relationship Specialty Start Date End Date Ira Rajput DO PCP - General Family Medicine 01/17/16 First Mate Relationship Specialty Start Date End Date Ira [...] BE BASED ON THE PRIMARY CLINICAL RECORDS. [employer] [facility]. provides no warranty or guarantee of the accuracy or completeness of information in this document.
[2023-10-11] MEDS: Ceftriaxone 1 GM/50 ML BAG IV (11:35)
--- OUTSIDE RECORDS SUMMARY | 2023-10-11 11:39 | XMS RPT_ITS | CCD ---
Author Name Unknown Address [address] [place] [address] Organization [facility] Care Team Providers Care Care Program Director Name Role Phone Ira Rajput Primary Care Provider [phone] RIAN LECHUGA Attending Unavailable RIAN LECHUGA Primary Care Unavailable RIAN LECHUGA Admitting Unavailable Ira Rajput DO Primary Care Provider Sandeep BETANCUR Iradanielle Zambrano Primary Care Provid er Sandeep BETANCUR [place] Juan Manuel Primary Care Provid er Sandeep BETANCUR [place] Juan Manuel Primary Care Provid er RENETTA RAJPUTLAND JUAN MANUEL Primary Care Scarlet [facility] Care Scarlet RAJPUT [place] JUAN MANUEL Attending Scarlet RAJPUT [facility] Primary Care Scarlet RAJPUT [place] JUAN MANUEL Primary Care WALESKA Finley Referring [...] Translations: [DULOXETINE] Drug Allergy 08-27-2018 Vomiting [facility] (18 sources) rofecoxib; Translations: [ROFECOXIB] Drug Allergy 11-13-2016 [facility] Medications Current Medications Medication Drug Class(es) Dates Sig (Normalized) Sig (Original) acetaminophen 500 mg oral tablet (2 sources) Start: 11-26-2019 End: 11-26-2019 acetaminophen (TYLENOL) tablet 1,000 mg Vywfshu-Kfttvuqim-Peb ortega D (CALCIUM 1200+D3 PO) (3 sources) [...] 17:50-0400 Body temperature 97.59 [degF] Waleska David APRN.NURSING TECH Work Phone: [facility] 04-15-2023 17:50-0400 Body weight 101.61 kg Waleska David APRN.NURSING TECH Work Phone: [facility] 04-15-2023 17:50-0400 Diastolic blood pressure 76 mm[Hg] Waleska David APRN.NURSING TECH Work Phone: [facility] 04-15-2023 17:50-0400 Heart rate 98 /min Waleska David VETERANS EMPLOYMENT REPRESENTATIVE.NURSING TECH Work Phone: [facility] 04-15-2023 17:50-0400 Respiratory rate 18 /min Waleska David APRN.NURSING TECH Work Phone: [facility] 04-15-2023 17:50-0400 SaO2% (BldA) [Mass fraction] 95 % Waleska David VETERANS EMPLOYMENT REPRESENTATIVE.NURSING TECH Work Phone: [facility] 04-15-2023 17:50-0400 Systolic blood pressure 144 mm[Hg] Waleska David APRN.NURSING TECH Work Phone: [facility] 04-18-2022 14:40-0400 Body height 162.6 cm [place] Sandeep DO Work Phone: [facility] 04-18-2022 14:40-0400 Body temperature 98.01 [degF] Ira Sandeep DO Work Phone: [facility] 04-18-2022 14:40-0400 Body weight 98.43 kg [place] Sandeep DO Work Phone: [facility] 04-18-2022 14:40-0400 Diastolic blood pressure 80 mm[Hg] Ira Sandeep DO Work Phone: [facility] 04-18-2022 14:40-0400 Heart rate 101 /min [place] Sandeep DO Work Phone: [facility] 04-18-2022 14:40-0400 SaO2% (BldA) [Mass fraction] 96 % Ira Sandeep DO Work Phone: [facility] 04-18-2022 14:40-0400 Systolic blood pressure 120 mm[Hg] [place] Sandeep DO Work Phone: [facility] 11-29-2019 10:05-0500 Body Temperature 97.59 [degF] Vic [facility] 11-29-2019 10:05-0500 BP Diastolic 85 mm[Hg] [facility] [place] 11-29-2019 10:05-0500 BP Systolic 150 mm[Hg] [facility] [place] 11-29-2019 10:05-0500 Pulse (Heart Rate) 87 /min [facility] [place] 11-29-2019 10:05-0500 Pulse Oximetry 96 % Vic [facility] [place] 11-29-2019 10:05-0500 Respiratory Rate 16 /min [facility] [place] 11-26-2019 09:25-0500 BMI (Body Mass Index) 39.55 kg/m2 Vic Brown [facility], [place] 11-26-2019 09:25-0500 Body weight 106.14 kg [facility] Stephanie [facility] , [place] 11-26-2019 09:25-0500 Height 163.8 cm Vic Brown [facility] , [place] 11-19-2019 14:28-0500 Body Temperature 97.39 [degF] [facility] [place] 11-19-2019 14:28-0500 BP Diastolic 77 mm[Hg] [facility] [place] 11-19-2019 14:28-0500 BP Systolic 142 mm[Hg] [facility] [place] 11-19-2019 14:28-0500 Pulse (Heart Rate) 97 /min Vic Brown [facility], [place] 11-19-2019 14:28-0500 Pulse Oximetry 100 % [facility] [place] [facility] [place] 11-19-2019 14:01-0500 BMI (Body Mass Index) 39.82 kg/m2 Vic Brown [facility], [place] 11-19-2019 14:01-0500 Body weight 105.23 kg [facility] [place] 11-19-2019 14:01-0500 Height 162.6 cm [facility] [place] [facility] [place] 11-19-2019 14:01-0500 Respiratory Rate 16 /min Vic Brown [place], [place] Encounters Encounter Date Encounter Type Care Provider Facility Start: 08-03-2023 Refill [place] Lyric Rajput DO Work Phone: [facility] [place] Procedures Date Procedure Procedure Detail Performing Clinician Start: 04-16-2023 Dup-scan xtr veins unilateral/limited study Waleska David APRN.NURSING TECH Work Phone: Start: 04-18-2022 Adult depression scr eening assessment [facility] DO Work Phone: Start: 10-29-2021 Lipid 1996 panel - S sofia or Plasma [facility] DO Work Phone: Start: 05-10-2021 Mammography [place] O liverio DO Work Phone: Start: 10-20-2020 Adult depression scr eening assessment [place] Sandeep DO Work Phone: Start: 11-28-2019 BASIC METABOLIC PANE L W/ REFLEX TO MG FOR LOW K Magydiandra Tuttle Work Phone: Start: 11-27-2019 Blood count complete auto&auto difrntl wbc Magy Tuttle Work Phone: Start: 11-26-2019 OPERATIVE REPORT 3m Sca nning Start: 11-19-2019 Ecg routine ecg w/le ast 12 lds w/i&r [facility] Work Phone: Start: 11-19-2019 ADD ON LAB TEST [facility] Work Phone: Start: 11-19-2019 Basic metabolic pane l calcium total [facility] Work Phone: Start: 11-19-2019 Blood count complete automated [facility] Work Phone: Start: 11-19-2019 Blood typing serologic abo [facility] Work Phone: Start: 11-19-2019 Hemoglobin glycosyla gilberto a1c [facility] Work Phone: Plan of Treatment Date Care Activity Detail Author Start: 10-29-2026 Lipid 1996 panel - S sofia or Plasma Lipid Screening [facility] Start: 10-29-2026 LIPID SCREEN LIPID SCREEN [facility] Start: 04-29-2026 Diabetes Screening Diabetes Screenin g [facility] Start: 10-07-2025 DIABETES SCREEN DIABETES SCREEN [facility] Start: 10-29-2024 DIABETES SCREEN DIABETES SCREEN [facility] Start: 10-07-2023 ANNUAL PCP TEAM DIKE SUPERVISOR PREETHI DISEASE VISIT ANNUAL PCP TEAM CHRONIC DISEASE VISIT [facility] Start: 05-30-2023 Covid-19 Vaccine () Covid-19 Vaccine () [facility] Start: 05-30-2023 Influenza vaccination [facility] Start: 04-18-2023 Adult depression scr eening assessment DEPRESSION SCREENING [facility] Start: 04-18-2023 ANNUAL PCP TEAM DIKE SUPERVISOR PREETHI DISEASE VISIT ANNUAL PCP TEAM CHRONIC DISEASE VISIT [facility] Start: 10-19-2022 ANNUAL PCP TEAM DIKE SUPERVISOR PREETHI DISEASE VISIT ANNUAL PCP TEAM CHRONIC DISEASE VISIT [facility] Start: 10-19-2022 BP CONTROLLED (<130/80) BP CONTROLLE D (<130/80) [facility] Start: 09-29-2022 ADVANCE DIRECTIVE DISCUSSION ADVANCE DIRECTIVE DISCUSSION [facility] Start: 09-29-2022 DEPRESSION ASSESSMENT DEPRESSION ASS ESSMENT [facility] Start: 05-30-2022 Influenza vaccination INFLUENZA (#1) [facility] Start: 05-10-2022 Mammography [facility] Start: 04-25-2022 COVID-19 VACCINE (5 - Booster for Pfizer series) COVID-19 VACCINE (5 - Booster for Pfizer series) [facility] Start: 04-19-2022 BONE DENSITY BONE DENSITY [facility] Immunizations Immunization Date Immunization Notes Care Provider Cydney orozco 10-08-2022 influenza virus vaccine, unspecified formulation Ira Sandeep DO Work Phone: [facility] 10-11-2021 influenza, high dose seasonal, preservative-free [place] Sandeep DO Work Phone: [facility] 10-11-2021 Influenza, injectabl e, Madin Cypress Canine Kidney, preservative free, quadrivalent Ira Sandeep DO Work Phone: [facility] 11-29-2019 influenza, injectabl e, quadrivalent, preservative free Vic Keaton [facility] 11-29-2019 influenza quadrivale nt split vaccine (FLUZONE;FLUARIX;FLULAV AL;AFLURIA) injection 0.5 mL [place], [place] 11-15-2015 pneumococcal conjuga te vaccine, 13 valent [place] Sandeep DO Work Phone: [facility] 09-06-2015 influenza, seasonal, injectable [place] Sandeep DO Work Phone: [facility] 09-06-2015 influenza, seasonal, injectable, preservative free [place] Sandeep DO Work Phone: [facility] 07-29-2015 influenza, seasonal, injectable, preservative free Ira Sandeep DO Work Phone: [facility] 11-29-2014 poliovirus vaccine, inactivated Ira Sandeep DO Work Phone: [facility] Payers Date Payer Category Payer Medicare UHC MEDICARE UHC MEDICARE ADVANTAGE O [id number] 2021-Present [phone] [address] [address] [place] [address] O [id number] 2021 Medicare [id number] 2021 Unknown [id number] 2016 Medicare MEDICARE MEDICAR E PART A AND B xxxxxxxxxxx 2016-Present [phone] [place] [address] xxxxxxxxxxx [id number] 2016 Medicare MEDICARE MEDICAR E A AND B [id number] 2016-[address] [place] [address] Medicare [id number] 1959 Medicare [id number] 1950 Unknown [id number] Social History Date Type Detail Facility Start: 10-14-2019 End: 11-19-2019 Tobacco smoking status NHIS Current some day smoker [facility] Work Phone: History of tobacco use Cigarette Smoker S [facility] Work Phone: Start: 11-19-2019 End: 10-13-2022 Cigarettes smoked current (pack per day) - Reported [facility] Start: 10-14-2019 End: 11-19-2019 Alcohol intake [facility] (finding) [facility]: Start: 10-14-2019 History SDOH Alcohol Frequency 2 [employer] Work Phone: Start: 10-14-2019 Alcohol Comment once every 2-3 yrs S [email or web address] Work Phone: Start: 1950 Sex Assigned At Not on file [facility] [email or web address] Work Phone: Start: 11-13-2016 End: 10-07-2022 Tobacco smoking status NHIS Smokes tobacco daily [facility] Work Phone: Start: 11-13-2016 End: 10-07-2022 Tobacco use and exposure Smokeless tobacco non-user [facility] Work Phone: Start: 10-20-2020 End: 04-15-2023 Alcohol intake Current non-drinker of alcohol (finding) [facility] Start: 11-13-2016 Tobacco Comment 5 cigs per day [facility] Start: 09-29-2021 End: 04-18-2022 Exposure to SARS-CoV-2 (event) Not sure [facility] Start: 04-18-2022 End: 10-07-2022 Tobacco Comment 1-2 cigs per day [facility] Start: 10-13-2022 End: 04-15-2023 Tobacco use panel [facility] Adult Depression Screening Assessment 3 [facility] Start: 2021 Gender identity Identifies as female gender (finding) [facility] Start: 2021 Sexual orientation Heterosexual (fin ding) [facility] Medical Equipment Procedure Code Equipment Code Equipment Origin al Text Equipment Identifier Dates Graft Infuse 18m m Large Ii Bovine Collagen Rhbmp-2 26mm Bone Absorbable - [id number] Start: 11-21-2016 Clinical Notes 10-08-2021 to [...] to pharmacy documented in this encounter [facility] 04-15-2023 Note HNO ID: [id number] Author: Waleska David APRN.MAI Service: ? Author [...] Take 8.6 mg by mouth twice daily. Institute-3 Fatty Acids-Vitamin E 1,000 mg cap Take [...] US DVT LOWER LEFT Waleska David APRN.MAI [facility] 04-15-2023 History of Present illness Narrative Subjective [...] Take 8.6 mg by mouth twice daily. Institute-3 Fatty Acids-Vitamin E 1,000 mg cap Take [...] - US DVT LOWER LEFT Waleska David APRN.NURSING TECH documented in this encounter [facility] 03-25-2023 Miscellaneous Notes Pharmacy faxed [...] Vomiting Other reaction(s): vomiting Erythromycin Unknown (home) [phone] (cell) Last Office Visit Date: 10/07/2022 Last [facility] Visit: Visit date not found Future Appointment: Visit date not found The patients preferred pharmacy has been captured for this encounter? yes Request is for script(s) to be escript to pharmacy. Marilu Barnes LPN documented in this encounter [facility] 01-22-2023 Miscellaneous Notes Call pharm for refills documented in this encounter [facility] 01-21-2023 Miscellaneous Notes Patient MyChart message requesting the following refill Refill(s) Requested: Requested Prescriptions Pending Prescriptions Disp Refills fluconazole (DIFLUCAN) 150 mg tablet 3 tablet 0 Sig: Take 1 tablet by mouth once daily. ALLERGIES Allergen Reactions Vioxx [Rofecoxib] Swelling Pregabalin Unknown, Swelling Other reaction(s): leg swelling Duloxetine Vomiting Other reaction(s): vomiting Erythromycin Unknown (home) [phone] (cell) Last Office Visit Date: 10/07/2022 [facility] Visit: Visit date not found Future Appointment: Visit date not found The patients preferred pharmacy has been captured for this encounter? yes Request is for script(s) to be escript to pharmacy. Marilu Barnes LPN documented in this encounter [facility] 12-25-2022 Miscellaneous Notes Pharmacy faxed requesting the following refill Refill(s) Requested: Requested Prescriptions Pending Prescriptions Disp Refills hydroCHLOROthiazide 25 mg tablet [Pharmacy Med Name: HYDROCHLOROTHIAZIDE 25 MG TAB] 90 tablet 1 Sig: take 1 tablet by mouth once daily ALLERGIES Allergen Reactions Vioxx [Rofecoxib] Swelling Pregabalin Unknown, Swelling Other reaction(s): leg swelling Duloxetine Vomiting Other reaction(s): vomiting Erythromycin Unknown (home) [phone] (cell) Last Office Visit Date: 10/07/2022 Last [facility] Visit: Visit date not found Future Appointment: Visit date not found The patients preferred pharmacy has been captured for this encounter? yes Request is for script(s) to be escript to pharmacy. Ofelia Hodge LPN documented in this encounter [facility] 12-24-2022 Miscellaneous Notes Pharmacy faxed [...] Vomiting Other reaction(s): vomiting Erythromycin Unknown (home) [phone] (cell) Last Office Visit Date: 10/07/2022 Last [facility] Visit: Visit date not found Future Appointment: Visit date not found The patients preferred pharmacy has been captured for this encounter? yes Request is for script(s) to be escript to pharmacy. Marilu Barnes LPN documented in this encounter [facility] 10-07-2022 Note HNO ID: [id number] Author: Ira Rajput DO Service: ? Author Type: Physician Type: Progress Notes Filed: 10/13/2022 12:52 PM Note Text: [facility] [place] DO [address] [place] [address] Date of Evaluation: 10/07/2022 Patient Name: Lucrecia Roberto : 1950 Chief Complaint: Patient presents with: 6 Month Exam Hypertension frequent yeast infections Nursing Intake: There are no exam notes on file for this visit. Subjective Ms. Roberto is a 72 year old female who presents with the following complaint(s): The history is provided by the patient. No waste baler was used. Hypertension This is a chronic [...] Take 8.6 mg by mouth twice daily. Institute-3 Fatty Acids-Vitamin E 1,000 mg cap Take [...] spray into e (more content not included)... [facility] 09-25-2022 Miscellaneous Notes Scheduled Pt for 10/07/21 [...] Vomiting Other reaction(s): vomiting Erythromycin Unknown (home) [phone] (cell) Last Office Visit Date: 04/18/2022 Last [facility] Visit: Visit date not found Future Appointment: Visit date not found The patients preferred pharmacy has been captured for this encounter? yes Request is for script(s) to be escript to pharmacy. Ofelia Hodge LPN documented in this encounter [facility] 04-18-2022 History of Present illness Narrative Images from the original note were not included. [facility] [address] [place] [address] Date of Evaluation: 04/18/2022 Patient Name: Lucrecia [...] by mouth every 6 hours as needed. Institute-3 Fatty Acids-Vitamin E (FISH OIL) 1,000 mg [...] 3:05 PM. documented in this encounter [facility] 01-03-2022 Miscellaneous Notes Pharmacy faxed requesting the following refill Refill(s) Requested: Pending Prescriptions Disp Refills HYDROCHLOROTHIAZIDE 25 MG TABLET 90 tablet 3 Sig: take 1 tablet by mouth once daily LUZ: Yes ALLERGIES Allergen Reactions Vioxx [Rofecoxib] Swelling Pregabalin Unknown, Swelling Other reaction(s): leg swelling Duloxetine Vomiting Other reaction(s): vomiting Erythromycin Unknown (home) [phone] (cell) Last Office Visit Date: 10/19/2021 Last [facility] Visit: Visit date not found Future Appointment: 04/18/2022 The patients preferred pharmacy has been captured for this encounter? yes Request is for script(s) to be escript to pharmacy. Cathi Nolen LPN documented in this encounter [facility] 01-02-2022 Miscellaneous Notes Patient updated. Script sent diverticulitis documented in this encounter [facility] 10-08-2021 Miscellaneous Notes Pharmacy faxed [...] Vomiting Other reaction(s): vomiting Erythromycin Unknown (home) [phone] (cell) Last Office Visit Date: 04/19/2021 Last [facility] Visit: Visit date not found Future Appointment: 10/19/2021 The patients preferred pharmacy has been captured for this encounter? yes Request is for script(s) to be escript to pharmacy. Ofelia Hodge LPN documented in this encounter [facility] documented in this encounter [facility] Work Phone: Evaluation note* Diagnosis Gastroesophageal reflux disease, unspecified whether esophagitis present Essential hypertension Unspecified essential hypertension documented in this encounter [facility] note* Diagnosis Essential hypertension Unspecified essential hypertension documented in this encounter [facility] note* Diagnosis Primary hypertension- Primary Unspecified essential hypertension Gastroesophageal reflux disease without esophagitis Esophageal reflux Psoriasis Other psoriasis Seasonal allergies Allergic rhinitis, cause unspecified documented in this encounter [facility] note* Diagnosis Gastroesophageal reflux disease, unspecified whether esophagitis present documented in this encounter [facility] note* Diagnosis Gastroesophageal reflux disease, unspecified whether esophagitis present documented in this encounter [facility] note* Diagnosis Essential hypertension Unspecified essential hypertension documented in this encounter [facility] note* Diagnosis Vaginal yeast infection Candidiasis of vulva and vagina documented in this encounter [facility] note* Diagnosis Leg swelling- Primary Swelling of limb documented in this encounter [facility] note* Diagnosis Leg swelling Swelling of limb documented in this encounter [facility] note* Diagnosis Gastroesophageal reflux disease, unspecified whether esophagitis present documented in this encounter [facility] for referral (narrative)* Diagnostic Procedure Only (Urgent) - Pending Review Specialty Diagnoses / Procedures Referred By Alvarez lord Referred To Contact US IMAGING Diagnoses Leg swelling Procedures US DVT LOWER LEFT DUP-SCAN XTR VEINS UNILATERAL/LIMITED STUDY Waleska David APRN.NURSING TECH [address] [place] [address] Us Imaging Referral ID Status Reason Start Date Expiration Date Visits Requested Visits Authorized [id number] Pending Review Auto-Generat ed Referral 04/15/2023 05/14/2024 1 1 [facility] for referral (narrative)* Diagnostic Procedure Only (Urgent) - Closed Specialty Diagnoses / Procedures Referred By Contac t Referred To Contact US IMAGING Diagnoses Leg swelling Procedures US DVT LOWER LEFT DUP-SCAN XTR VEINS UNILATERAL/LIMITED STUDY Waleska David APRN.NURSING TECH [address] [place] [address] Us Imaging Referral ID Status Reason Start Date Expiration Date V isits Requested Visits Authorized [id number] Closed Auto-Generate d Referral 04/15/2023 05/14/2024 1 1 [facility] for visit Narrative* Diagnostic Procedure Only (Urgent) - Closed Specialty Diagnoses / Procedures Referred By Contac t Referred To Contact US IMAGING Diagnoses Leg swelling Procedures US DVT LOWER LEFT DUP-SCAN XTR VEINS UNILATERAL/LIMITED STUDY Waleska David APRN.NURSING TECH [address] [place] [address] Us Imaging Referral ID Status Reason Start Date Expiration Date V isits Requested Visits Authorized [id number] Closed Auto-Generate d Referral 04/15/2023 05/14/2024 1 1 [facility] Discharge Instructions * Instructions* Radha [...] Your home care will be provided by: [facility] [phone] * Additional Instructions* Gualberto Foley PA-C - [...] Documents on File Type Date Recorded Patient Community Representative Expl anation Advance Directives and Living Will Power of Target Developer Latest Code Status on File Code Status Date Activated Date Inactivated Comments Full Code 11/26/2019 3:15 PM Full Code 11/26/2019 9:21 AM 11/26/2019 3:01 PM Documents on File Type Date Recorded Patient Community Representative Expl anation Advance Directives and Living Will Power of Target Developer Summary Purpose Family History No Family History [...] PACU in stable condition and then to [facility]. They received 24 hours of prophylactic [...] d/c to home today. * Trang Hair, VETERANS EMPLOYMENT REPRESENTATIVE - NURSING TECH - 11/28/2019 1:07 PM EST 11/28/2019 Referring [...] GERD (gastroesophageal reflux disease) High blood pressure BE[place]ER (hard of hearing) BOTH EARS AND NO [...] Problem List Diagnosis Spondylolisthesis of lumbar region MOTORS AND GENERATORS INSPECTOR: None Pain Management Adjuvants: Acetaminophen 1,000 mg Lidoderm patch Tizanidine Hydromorphone PRN- 1 mg used 11/26 Oxycodone PRN - 40 mg used Assessment: 1. Acute pain s/p L5 decompression and fusion. 2. Chronic pain 3. Opioid Tolerant/Dependent- prescribed [place] Pain Management Plan: -Acetaminophen 1,000 mg TID [...] Acute Pain Service is available by pager #[phone] Friday-Friday [phone]. For questions oracute issues after hours, please contact hospital incinerator operator for name and pager number of the Pain ManagementProvider PRODUCT PROMOTER SALES PERSON. [facility] Pain Management has agreed to see our patients after they are discharged. Patients should be instructed to call [phone]. Please ask patient to sign a medical release andsend medical records to [facility].They will contact the patient with an appointment time. * Robyn Wagner DTR - 11/28/2019 12:01 PM EST Nutrition rescreen completed. Chart reviewed. Patient to be monitored and followed by the diet maintenance technician 2nd shift. * Bishnu Viveros MD - 11/28/2019 11:14 [...] Hypertension 3. Psoriatic arthritis 4. GERD 5. BEAVER both ears no hearing aid 6. obesity Bp controlled and stable, Continue losartan HCTZ and pepcid Monitor BP Pain control and SCD's, PT will follow Diagnosis Date Arthritis Constipation Diverticulitis GERD (gastroesophageal reflux disease) High blood pressure BEAVER (hard of hearing) BOTH EARS AND NO [...] 11/27/2019 2:33 PM EST Physical Therapy Facility/Department: [facility] Initial Assessment NAME: Lucrecia Roberto [...] GERD (gastroesophageal reflux disease), High blood pressure, BEAVER (hard of hearing), PONV (postoperative nausea and vomiting), Renal cyst, and Sciatic nerve pain. has a past surgical history that includes back surgery (2017); [place] tooth extraction; Appendectomy; Foot surgery (Right); Colonoscopy; [...] Ambulation Assistance: Independent Transfer Assistance: Independent Active Branch Maker: Yes Mode of Transportation: Car Objective AROM [...] was established in collaboration with patient/family/other representatives. rTang Bey, PT Drake Sheth MD - 11/27/2019 12:02 PM EST No co vss Af jennifer 205 [id number] Wound ok fsc b Good sensation 68f L4-5 dff Oct Neuro stable Keep jennifer Mobilize Pt Medicine consult if bp not resolving Yasmeen Jack RPH - 11/27/2019 9:53 AM EST Lucrecia Roberto was ordered [id number]. D. Per [facility] Policy #4005, herbals and certain dietary [...] aware of patient's bed assignment to , 7204. documented in this encounter Assessments Diagnosis Spondylolisthesis of lumbar region- Primary Acquired spondylolisthesis Reason for Referral Status Reason Specialty Diagnoses / Procedures Referre d By Contact Referred To Contact Closed Radiology Diagnoses Lumbar stenosis with neurogenic claudication Procedures MRI Lumbar Spine WO Contrast Vic Pugh MD [address] [place] [address] Additional Source Comments INFORMATION SOURCE (unrecogn ized section and content) DATE CREATED AUTHOR AUTHOR'S ORGANIZ ATION 11/30/2019 [facility] DATE CREATED AUTHOR AUTHOR'S ORGANIZ ATION 12/13/2019 [facility] DATE CREATED AUTHOR AUTHOR'S ORGANIZ ATION 12/17/2020 [facility] DATE CREATED AUTHOR AUTHOR'S ORGANIZ ATION 05/01/2023 [facility] DATE CREATED AUTHOR AUTHOR'S ORGANIZ ATION 07/09/2023 [facility] Source Comments (unrecognize d section and content) In the event this informatio n is protected by the Federal Confidentiality of Alcohol and Drug Abuse Patient Records regulations: The Federal rules restrict any use of the information to criminally investigate or prosecute any alcohol or drug abuse patient.[facility] the event this information is protected by the Federal Confidentiality of Alcohol and Drug Abuse Patient Records regulations: The Federal rules restrict any use of the information to criminally investigate or prosecute any alcohol or drug abuse patient.[facility] the event this information is protected by the Federal Confidentiality of Alcohol and Drug Abuse Patient Records regulations: The Federal rules restrict any use of the information to criminally investigate or prosecute any alcohol or drug abuse patient.[facility] the event this information is protected by the Federal Confidentiality of Alcohol and Drug Abuse Patient Records regulations: The Federal rules restrict any use of the information to criminally investigate or prosecute any alcohol or drug abuse patient.[facility] the event this information is protected by the Federal Confidentiality of Alcohol and Drug Abuse Patient Records regulations: The Federal rules restrict any use of the information to criminally investigate or prosecute any alcohol or drug abuse patient.[facility] Center[facility] the event this information is protected by the Federal Confidentiality of Alcohol and Drug Abuse Patient Records regulations: The Federal rules restrict any use of the information to criminally investigate or prosecute any alcohol or drug abuse patient.[facility] Center[facility] the event this information is protected by the Federal Confidentiality of Alcohol and Drug Abuse Patient Records regulations: The Federal rules restrict any use of the information to criminally investigate or prosecute any alcohol or drug abuse patient.[facility] Center[facility] the event this information is protected by the Federal Confidentiality of Alcohol and Drug Abuse Patient Records regulations: The Federal rules restrict any use of the information to criminally investigate or prosecute any alcohol or drug abuse patient.[facility] Center[facility] the event this information is protected by the Federal Confidentiality of Alcohol and Drug Abuse Patient Records regulations: The Federal rules restrict any use of the information to criminally investigate or prosecute any alcohol or drug abuse patient.[facility] Center[facility] the event this information is protected by the Federal Confidentiality of Alcohol and Drug Abuse Patient Records regulations: The Federal rules restrict any use of the information to criminally investigate or prosecute any alcohol or drug abuse patient.[facility] Center[facility] the event this information is protected by the Federal Confidentiality of Alcohol and Drug Abuse Patient Records regulations: The Federal rules restrict any use of the information to criminally investigate or prosecute any alcohol or drug abuse patient.[facility] Center[facility] the event this information is protected by the Federal Confidentiality of Alcohol and Drug Abuse Patient Records regulations: The Federal rules restrict any use of the information to criminally investigate or prosecute any alcohol or drug abuse patient.[facility] Center[facility] the event this information is protected by the Federal Confidentiality of Alcohol and Drug Abuse Patient Records regulations: The Federal rules restrict any use of the information to criminally investigate or prosecute any alcohol or drug abuse patient.[facility] Center[facility] the event this information is protected by the Federal Confidentiality of Alcohol and Drug Abuse Patient Records regulations: The Federal rules restrict any use of the information to criminally investigate or prosecute any alcohol or drug abuse patient.[facility] Center[facility] the event this information is protected by the Federal Confidentiality of Alcohol and Drug Abuse Patient Records regulations: The Federal rules restrict any use of the information to criminally investigate or prosecute any alcohol or drug abuse patient.[facility] CenterIn the event this information is protected by the Federal Confidentiality of Alcohol and Drug Abuse Patient Records regulations: The Federal rules restrict any use of the information to criminally investigate or prosecute any alcohol or drug abuse patient.[facility] Reason for Visit (unrecogniz ed [...] Care Teams (unrecognized sec tion and content) Care Program Director Relationship Specialty Start Date End Date Ira Rajput DO PCP - General Family Practice 01/17/16 Care Program Director Relationship Specialty Start Date End Date Ira Rajput DO PCP - General Family Practice 01/17/16 Care Program Director Relationship Specialty Start Date End Date Ira Rajput DO PCP - General Family Practice 01/17/16 Care Program Director Relationship Specialty Start Date End Date Ira Rajput DO PCP - General Family Practice 01/17/16 Care Program Director Relationship Specialty Start Date End Date Ira Rajput DO PCP - General Family Medicine 01/17/16 Care Program Director Relationship Specialty Start Date End Date Ira Rajput DO PCP - General Family Medicine 01/17/16 Care Program Director Relationship Specialty Start Date End Date Ira Rajput DO PCP - General Family Medicine 01/17/16 Care Program Director Relationship Specialty Start Date End Date Ira Rajput DO PCP - General Family Medicine 01/17/16 Care Program Director Relationship Specialty Start Date End Date Ira Rajput DO PCP - General Family Medicine 01/17/16 Care Program Director Relationship Specialty Start Date End Date Ira Rajput DO PCP - General Family Medicine 01/17/16 Care Program Director Relationship Specialty Start Date End Date Ira [...] BE BASED ON THE PRIMARY CLINICAL RECORDS. [employer] [facility]. provides no warranty or guarantee of the accuracy or completeness of information in this document.
[2023-10-11 11:50] LABS: Magnesium 1.5 mg/dL (1.6-2.6); Phosphorus 2.5 mg/dL (2.5-4.9)
[2023-10-11] MEDS: KCL 20MEQ in 0.9% NS 20 MEQ/1,000 ML IV.SOLN. 100 MEQ IV ×2 (12:53→23:23)
[2023-10-11 15:10] LABS: Troponin-I HS 148 pg/mL (3.0-54.0)
[2023-10-11] MEDS: Magnesium Sulfate 2 GM in Dextrose 5%-Water (100mL Bag) 100 ML IV (16:32)
[2023-10-11] MEDS: Na Biphos/Potassium Phosphate PACKET 1 PACKET PO ×2 (17:17→21:31)
[2023-10-11] MEDS: Miconazole Nitrate 43 GM Bottle 1 APPLIC TOPICAL (21:25)
[2023-10-11] MEDS: Senna/Docusate Sodium 1 Tablet 2 TABLET PO (21:28)
[2023-10-11] MEDS: Atorvastatin Calcium 40 MG Tablet PO (21:29)
[2023-10-11] MEDS: Cholecalciferol (VIT D3) 25 MCG TABLET (1,000 UNITS) PO (21:29)
[2023-10-11] MEDS: Metoprolol Tartrate 25 MG Tablet 12.5 MG PO (21:32)
[2023-10-11] MEDS: MELATONIN 10 MG TABLET PO (23:47)
[2023-10-11] MEDS: HYDROcodone Bitartrate/Apap 5/325 Tablet PO (23:47)
[2023-10-11] MEDS: Enoxaparin 40 MG/0.4 ML Syringe SC (23:47)
[2023-10-12] VITALS (11 sets, daily range): BP systolic 115–141; BP diastolic 55–76; PULSE 60–80; RESP 16–19; TEMP 36.7–37; O2SAT 96–100
[2023-10-12] MEDS: Acetaminophen 325 MG Tablet 650 MG PO (06:08)
[2023-10-12] MEDS: Na Biphos/Potassium Phosphate PACKET 1 PACKET PO ×3 (06:08→21:43)
[2023-10-12 06:50] LABS: Absolute Lymphocyte Count 1.84 X10^3/uL (0.83-4.51); Absolute Neutrophil Count 9.3 X10^3/uL (2.0-7.7); Basophil# 0.04 X10^3/uL; Basophil% 0.3 % (0-1); Eosinophils% 0.7 % (0-5); Hematocrit 29.1 % (37-47); Hemoglobin 9.7 g/dL (12.0-15.0); Lymphocyte # 1.84 X10^3/ul (0.83-4.51); Lymphocyte % 12.8 % (19-41); Mean Corp Hgb Conc 33.3 g/dL (32-36); Mean Corpuscular Hgb 33.3 pg (27.0-32.0); Mean Platelet Vol. 10.9 fl (6.2-12.0); Monocyte# 2.84 X10^3/uL; Monocyte% 19.8 % (0-10); NRBC Flagged by Analyzer 0 % (0-5); Neutrophil # 9.27 X10^3/uL (2.7-7.7); Neutrophil % 64.5 % (47-70); POSITIVE DIFFERENTIAL YES; Platelet Count 247 K/mm3 (150-450); RBC Distribution Width CV 15.6 % (11.6-14.6); RBC Distribution Width SD 57.1 fl (35.1-43.9); Red Blood Count 2.91 M/mm3 (4.2-5.4); White Blood Count 14.4 K/mm3 (4.4-11.0)
[2023-10-12 07:13] LABS: Differential Indicated SCAN CRITERIA MET
[2023-10-12 07:14] LABS: Differential Comment SCANNED
--- NOTE | 2023-10-12 07:58 | PN.HOSP_ITS ---
Reason for Visit Reason for Visit: Diagnoses Acute bronchitis due to other specified organisms (10/11/23) Urinary tract infection, site not specified (10/11/23) Objective Data Objective Data Vital Signs: Vital Signs Temp Pulse Resp BP Pulse Ox O2 Del Method O2 Flow Rate 98.6 F 74 18 139/56 H 98 Nasal Cannula 2 10/12/23 03:39 10/12/23 03:39 10/12/23 03:39 10/12/23 03:39 10/12/23 07:52 10/12/23 07:52 10/12/23 07:52 Oxygen Flow Rate (L/min) 2 Oxygen Delivery Method Nasal Cannula Weight: 209 lb 3.499 oz Body Mass Index (BMI) 35.9 Intake & Output: Intake and Output for Last 24 Hours 10/10/23 10/11/23 10/12/23 23:59 23:59 23:59 Intake Total 3004 / 3004 Balance 3004 / 3004 Lab / Micro Data 10/12/23 05:22 10/11/23 06:36 Labs: Laboratory Results - last 24 hr 10/11/23 06:36: Diff Path Review January, Sodium 136, Potassium 2.8 L, Chloride 97 L, Carbon Dioxide 30.0, Anion Gap 9, BUN 14, Creatinine 0.76, Estim Creat Clear Calc 72.71, Est GFR (MDRD) Af Amer 97, Est GFR (MDRD) Non-Af 80, BUN/Creatinine Ratio 18.5, Glucose 117 H, Calcium 9.1, Phosphorus 2.5, Magnesium 1.5 L, Troponin I High Sens 302 H* 10/11/23 14:41: Troponin I High Sens 148 H* 10/12/23 05:22: WBC 14.4 H, RBC 2.91 L, Hgb 9.7 L, Hct 29.1 L, MCV 100.0 H, MCH 33.3 H, MCHC 33.3, RDW Std Deviation 57.1 H, RDW Coeff of Sonya 15.6 H, Plt Count 247, MPV 10.9, Immature Gran % (Auto) 1.900 H, Neut % (Auto) 64.5, Lymph % (Auto) 12.8 L, Brantley % (Auto) 19.8 H, Eos % (Auto) 0.7, Baso % (Auto) 0.3, Absolute Neuts (auto) 9.3 H, Absolute Lymphs (auto) 1.84, Nucleated RBC % 0, Differential Comment SCANNED, Diff Path Review January Micro: Microbiology 10/11/23 06:48 Blood Culture (Wb) - Anticubital Left Blood Culture - Preliminary GNR lactose real estate acquisition analyst 10/11/23 06:36 Blood Culture (Wb) - Anticubital Left Blood Culture - Preliminary GNR lactose real estate acquisition analyst 10/11/23 10:20 Mucosa - Nose Respiratory Panel (PCR) - Final Rhinovirus Physical Exam Narrative Patient feeling sick with nasal congestion, mucus nose and throat, headache. No fever. Also bacteremia, GNR in blood. Physical exam General: Alert, Oriented x3, Cooperative HEENT: Stuffy nose. Atraumatic, PERRLA, EOMI, Normocephalic Oral: Oral mucosa dry. No Gingival or Mucosal Lesions/ Ulcerations Neck: Supple, No JVD, Negative Carotid Bruits Lungs: Air entry diminished in bilateral lung bases. Bilateral coarse crepitations. Cardiovascular: Regular rate, Regular Rhythm, Normal S1, Normal S2, No murmurs Abdomen: Bowel Sounds Present, Soft, Non Tender, Non-Distended : No renal angle tenderness. No suprapubic tenderness. Extremities: Bilateral nonpitting subtle edema, Capillary Refill Less than 3 Seconds Skin: No rashes, No breakdown Musculoskeletal: No Tenderness to Palpation of Joints or Extremities. ROM full. Neurological: Cranial nerves II-XII grossly intact, DTR 2+/4. No acute focal neurological deficit. Psych/Mental Status: Normal Affect, Appropriate. Assessment & Plan Assessment/Plan (1) Acute UTI: (2) Acute viral bronchitis: PLAN: Plan This 71-year-old female being admitted for generalized weakness and increased shortness of breath for about 1 week. 1. Acute rhinovirus viral bronchitis on baseline interstitial lung disease/pulmonary fibrosis with chronic hypoxic respiratory failure: Patient is being admitted in PCU. On baseline O2 requirement 3 L. Respiratory panel shows rhinovirus. Patient is negative for COVID, flu and RSV. Patient follows in pulmonary clinic with Dr. Williamson and had flu vaccine. DuoNeb every 6 hourly. Incentive spirometry and PEP.. Low-sodium diet. Low-dose diuretic as needed. Currently patient looks dehydrated therefore no diuretic. Patient has mild leukocytosis probably from viral bronchitis. 10/12: Patient is mainly having URI symptoms nasal congestions, mucus. Symptomatic management with nasal saline and Flonase nasal spray. DuoNeb every 6 hourly for 1 day and then as needed. Mucinex DM, incentive spirometry and PEP. Repeat chest x-ray. Stop IV fluid. 2. Recent diagnosis of UTI on October 10, 2023 with acute hypokalemia and hypomagnesemia: Patient currently denies dysuria or acute change in limited symptoms. UA on 10/10 shows WBC 10-25, 2+ bacteria, 100 LE, positive nitrite. U rine culture prelim shows GNR lactose real estate acquisition analyst and more than 100,000 colonies. Patient started on IV ceftriaxone. Potassium 2.8, serum magnesium 1.5 and phosphorus 2.5 low normal. Oral Neutra-Phos and IV magnesium replacement ordered. 10/12: Both blood cultures growing preliminary GNR. Patient on IV ceftriaxone. No fever. 3. Recent admission in May 2023 for non-STEMI, with eccentric mid segment 70 to 80% right coronary artery and nonocclusive coronary disease in the left main, left anterior descending artery, and the circumflex artery. On medical management. Patient on aspirin, Plavix, metoprolol 25 mg twice daily, HCTZ 25 mg daily and atorvastatin 40 mg daily. Echo in May 2023 shows EF 55 to 60%. No significant valvular abnormality reported. Patient has chronically elevated troponin. Twelve-lead EKG individually reviewed and shows chronic T wave inversion in V1 V2 and does not show acute change from previous May 2023 EKG. 1 more troponin ordered. 10/12: Continue above medications. Holding HCTZ. Resume when blood pressure permits and patient is well. Patient was on losartan but discontinued last cardiology visit June 2023 because of low blood pressure. 4. 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 5. Psoriatic arthritis-patient is on methotrexate chronically, this will be continued here. Patient follows outside cook cold meat for psoriatic arthritis. Living will/advanced directive/end of life care: Patient does not have living will or advanced directive. After discussion of benefits/risks procedures in volved with full code, DNR CC arrest and DNR CC, the patient opted for full code. But she did not want to be prolonged on ventilator Patient does want artificial life support including intubation, tube feed, ventilator and/chest compression, central venous catheter, vasopressor and DC shock if needed Total time spent in [id number] encounter in discussion of advanced directive 17 minutes. Clinical Impression(s) from Imaging Studies Chest X-Ray 10/11/23 06:38 IMPRESSION: 1. Low lung volumes limit the exam. No consolidations. 2. No acute cardiopulmonary abnormality. Chest X-Ray 06/01/23 18:28 IMPRESSION: Chronic interstitial lung disease. Chest CTA 06/01/23 19:08 IMPRESSION: Chronic interstitial lung disease. No demonstrated pulmonary embolism or arterial dissection. Cholelithiasis. Echocardiogram 06/02/23 02:00 Interpretation Summary The estimated ejection fraction is 55-60 %. No previous study to compare Laboratory Results 10/11/23 06:36: WBC 12.4 H, RBC 3.21 L, Hgb 10.3 L, Hct 31.7 L, MCV 98.8, MCH 32.1 H, MCHC 32.5, RDW Std Deviation 54.4 H, RDW Coeff of Sonya 15.2 H, Plt Count 208, MPV 10.7, Immature Gran % (Auto) 1.100 H, Neut % (Auto) 71.7 H, Lymph % (Auto) 8.1 L, Brantley % (Auto) 18.5 H, Eos % (Auto) 0.3, Baso % (Auto) 0.3, Absolute Neuts (auto) 8.9 H, Absolute Lymphs (auto) 1.00, Nucleated RBC % 0, Diff Path Review January, Sodium 136, Potassium 2.8 L, Chloride 97 L, Carbon Dioxide 30.0, Anion Gap 9, BUN 14, Creatinine 0.76, Estim Creat Clear Calc 72.71, Est GFR (MDRD) Af Amer 97, Est GFR (MDRD) Non-Af 80, BUN/Creatinine Ratio 18.5, Glucose 117 H, Lactic Acid 1.2, Calcium 9.1, Troponin I High Sens 302 H* 10/11/23 07:05: Urine Color Yellow, Urine Clarity Clear, Urine pH 6.0, Ur Specific Reliance 1.010, Urine Protein 30 H, Urine Glucose (UA) Normal, Urine Ketones 5 H, Urine Occult Blood 25 H, Urine Nitrite Negative, Urine Bilirubin Negative, Urine Urobilinogen Normal, Ur Leukocyte Esterase 25 H, Urine RBC 0 SEEN, Urine WBC 10-25 SEEN, Ur Squamous Epith Cells 0 SEEN, Urine Bacteria 0 SEEN, Urine Mucus 0 SEEN Charges/Coding Addendum Addendum: Total time of the visit including total time spent in counseling or coordination of care, (more than 50% of the total time, spent in obtaining medical information from nurses and other ancillary care providers,explaining to the patient about labs, imaging, diagnosis and management of active complex medical conditions), serious active medical problem including GNR bacteremia in both bottles of blood culture, respiratory infection, UTI, review of labs and imaging is 40 minutes. Visit Charges Inpatient E&M: 49339 Subs Hosp L3
[2023-10-12] MEDS: Metoprolol Tartrate 25 MG Tablet 12.5 MG PO ×2 (08:44→21:46)
[2023-10-12] MEDS: Senna/Docusate Sodium 1 Tablet 2 TABLET PO ×2 (08:45→21:44)
[2023-10-12] MEDS: Polyethylene Glycol 3350 17 GM PACKET PO (08:45)
[2023-10-12] MEDS: Pantoprazole Sodium 40 MG Tablet PO (08:45)
[2023-10-12] MEDS: Clopidogrel Bisulfate 75 MG Tablet PO (08:46)
[2023-10-12] MEDS: predniSONE 5 MG Tablet PO (08:46)
[2023-10-12] MEDS: Potassium Chloride Oral Tablet 20 MEQ 40 MEQ PO (08:46)
[2023-10-12] MEDS: Folic Acid 1 MG Tablet PO (08:46)
[2023-10-12] MEDS: Cholecalciferol (VIT D3) 25 MCG TABLET (1,000 UNITS) PO ×2 (08:46→21:44)
[2023-10-12] MEDS: Miconazole Nitrate 43 GM Bottle 1 APPLIC TOPICAL ×2 (08:48→21:44)
[2023-10-12] MEDS: Fluticasone 0.05% 1 SPRAY NASAL.SRY 2 SPRAY NASAL (08:48)
[2023-10-12] MEDS: Methotrexate 2.5 MG Tablet 20 MG PO (08:59)
[2023-10-12] MEDS: HYDROcodone Bitartrate/Apap 5/325 Tablet PO ×2 (09:00→21:43)
[2023-10-12] MEDS: Ceftriaxone 1 GM/50 ML BAG IV (09:00)
--- NOTE | 2023-10-12 10:15 | RAD_ITS ---
EXAM: XR CHEST, 1 VIEW CLINICAL INDICATION: sob TECHNIQUE: Frontal view of the chest. COMPARISON: XR Chest dated 10/11/2023 FINDINGS: LUNGS AND PLEURAL SPACES: Peripheral pulmonary opacities again noted suggestive of pulmonary fibrosis. HEART: Normal heart size. MEDIASTINUM: No mediastinal or hilar mass. BONES/JOINTS: No acute abnormality. RAD/Chest 1 View (Portable) IMPRESSION: Chronic pulmonary changes suggestive of fibrosis. Electronically Signed: Amandeep Miller MD at 10:52 EST ,
[2023-10-12] MEDS: guaiFENesin/D-Methorphan TAB.SR.12H 2 TABLET PO ×2 (10:24→21:50)
[2023-10-12] MEDS: Sodium Chloride 0.65% 1 SPRAY SPRAY.BTL 2 SPRAY NASAL (10:24)
[2023-10-12 10:42] LABS: Anion Gap 7 (5-15); BUN 13 mg/dL (7-18); BUN/Creat Ratio 22.8 RATIO (10-20); Calcium,Total 8.3 mg/dL (8.5-10.1); Chloride 105 mmol/L (98-107); Creatinine, Serum 0.57 mg/dL (0.55-1.02); EST Glomerular Filtration Rate 111 mL/min (>60); Est Glom Filt Rate - Afr Amer 134 mL/min (>60); Estimated Creatinine Clearance 71.03 ml/min; Glucose 90 mg/dL (74-106); Potassium 3.7 mmol/L (3.5-5.1); Sodium Level 140 mmol/L (136-145)
[2023-10-12] MEDS: Ipratropium/Albuterol Sulfate 3 ML AMPUL.NEB INHALATION ×2 (15:16→20:07)
[2023-10-12] MEDS: Atorvastatin Calcium 40 MG Tablet PO (21:44)
[2023-10-12] MEDS: 0.9% Saline Lock 10 ML Syringe IV (21:50)
[2023-10-13] VITALS (12 sets, daily range): BP systolic 121–151; BP diastolic 51–68; PULSE 61–72; RESP 16–18; TEMP 36.6–36.9; O2SAT 96–100
[2023-10-13] MEDS: Na Biphos/Potassium Phosphate PACKET 1 PACKET PO ×2 (05:02→14:23)
[2023-10-13 06:03] LABS: Absolute Lymphocyte Count 1.77 X10^3/uL (0.83-4.51); Absolute Neutrophil Count 8.8 X10^3/uL (2.0-7.7); Basophil# 0.05 X10^3/uL; Basophil% 0.4 % (0-1); Eosinophil# 0.36 X10^3/uL; Eosinophils% 2.8 % (0-5); Hematocrit 31.8 % (37-47); Hemoglobin 9.9 g/dL (12.0-15.0); Lymphocyte # 1.77 X10^3/ul (0.83-4.51); Lymphocyte % 13.9 % (19-41); Mean Corp Hgb Conc 31.1 g/dL (32-36); Mean Corpuscular Hgb 31.6 pg (27.0-32.0); Mean Corpuscular Volume 101.6 fL (81-99); Mean Platelet Vol. 9.9 fl (6.2-12.0); Monocyte# 1.51 X10^3/uL; Monocyte% 11.8 % (0-10); NRBC Flagged by Analyzer 0 % (0-5); Neutrophil # 8.83 X10^3/uL (2.7-7.7); Neutrophil % 69.3 % (47-70); POSITIVE DIFFERENTIAL YES; Platelet Count 359 K/mm3 (150-450); RBC Distribution Width CV 15.7 % (11.6-14.6); Red Blood Count 3.13 M/mm3 (4.2-5.4); White Blood Count 12.8 K/mm3 (4.4-11.0)
[2023-10-13 06:21] LABS: Differential Indicated SCAN CRITERIA MET
[2023-10-13 06:36] LABS: Anion Gap 5 (5-15); BUN 13 mg/dL (7-18); BUN/Creat Ratio 21.5 RATIO (10-20); Calcium,Total 8.7 mg/dL (8.5-10.1); Chloride 105 mmol/L (98-107); EST Glomerular Filtration Rate 103 mL/min (>60); Est Glom Filt Rate - Afr Amer 125 mL/min (>60); Estimated Creatinine Clearance 71.03 ml/min; Glucose 113 mg/dL (74-106); Potassium 4.5 mmol/L (3.5-5.1); Sodium Level 140 mmol/L (136-145)
[2023-10-13] MEDS: Ipratropium/Albuterol Sulfate 3 ML AMPUL.NEB INHALATION ×3 (06:48→19:26)
[2023-10-13 07:03] LABS: Differential Comment SCANNED
[2023-10-13] MEDS: Polyethylene Glycol 3350 17 GM PACKET PO (09:45)
[2023-10-13] MEDS: HYDROcodone Bitartrate/Apap 5/325 Tablet PO ×2 (09:45→21:39)
[2023-10-13] MEDS: Folic Acid 1 MG Tablet PO (09:46)
[2023-10-13] MEDS: Fluticasone 0.05% 1 SPRAY NASAL.SRY 2 SPRAY NASAL (09:46)
[2023-10-13] MEDS: Senna/Docusate Sodium 1 Tablet 2 TABLET PO ×2 (09:46→21:41)
[2023-10-13] MEDS: Metoprolol Tartrate 25 MG Tablet 12.5 MG PO ×2 (09:46→21:41)
[2023-10-13] MEDS: Clopidogrel Bisulfate 75 MG Tablet PO (09:47)
[2023-10-13] MEDS: Pantoprazole Sodium 40 MG Tablet PO (09:47)
[2023-10-13] MEDS: Potassium Chloride Oral Tablet 20 MEQ 40 MEQ PO (09:48)
[2023-10-13] MEDS: Cholecalciferol (VIT D3) 25 MCG TABLET (1,000 UNITS) PO ×2 (09:48→23:01)
[2023-10-13] MEDS: Meloxicam 7.5 MG Tablet PO (09:48)
[2023-10-13] MEDS: guaiFENesin/D-Methorphan TAB.SR.12H 2 TABLET PO ×2 (09:48→23:01)
[2023-10-13] MEDS: Enoxaparin 40 MG/0.4 ML Syringe SC (09:49)
[2023-10-13] MEDS: Aspirin 81 MG TAB.CHEW PO (09:49)
[2023-10-13] MEDS: predniSONE 5 MG Tablet PO (09:49)
[2023-10-13] MEDS: Miconazole Nitrate 43 GM Bottle 1 APPLIC TOPICAL ×2 (09:49→21:44)
[2023-10-13] MEDS: Oxymetazoline 0.05% 1 SPRAY SPRAY.BTL 2 SPRAY NASAL (09:58)
[2023-10-13 10:13] LABS: Pathologist Review Reviewed
[2023-10-13 10:14] LABS: Pathologist Review Reviewed
--- NOTE | 2023-10-13 10:30 | CASEMGMT ---
RN NOEL Face to Face with patient for initial transition planning/care coordination assessment. RN CM introduced self and role at [facility]. Patient lying in bed, alert and oriented. Patient willing to participate in assessment and is able to answer all questions appropriately. Care providers, pharmacy, and demographics verified. Patient wishes to discharge home but willing to go to SNF if needed, will monitor progress with therapy. Patient states she has no further needs or concerns at this time. CM to follow for discharge planning needs that may arise. PCP: [facility] Specialists: LAWRENCE, electronics mechanic apprentice; Meka Williamson, galley stripper; [facility] Preferred Pharmacy: [facility] Retail Insurance: [employer] [facility] Prescription Benefit: yes Living Will/HPOA: yes, son Drake Gudino LNOK: son, daughter Living Arrangements: Patient lives with son in a first floor apartment with 1 step to enter. Patient states she is independent at home. Transportation: [facility] DME/HHC: Patient has shower chair, raised toilet, cane, walker, pulse ox, and home oxygen through [facility] at 3-4lpm with portability. Patient has been to [facility] in the past. Patient has had [facility] in the past. Disposition Plan: TBD, C vs SNF pending course of treatment and progress with therapy, will continue to monitor. Corin RAY, RN, CM
[2023-10-13] MEDS: Meropenem 1 GM in 0.9% Normal Saline (100mL MB+) 100 ML IV (10:49)
[2023-10-13] MEDS: Meropenem 1 GM in 0.9% Normal Saline (100mL Bag) 100 ML IV ×2 (14:22→21:44)
--- NOTE | 2023-10-13 14:33 | CASEMGMT ---
Discharge Planning A list of?SNF providers including quality and resource use data and consistent with the patient's preferred geographic region, medical needs, and insurance network was created in [employer] Guide.? This list was provided to the SW. Tomasa Johns Discharge Planning Asst.
--- NOTE | 2023-10-13 15:00 | CASEMGMT ---
RN CM updated by ID that patient has ESBL in urine and blood and will need IV or IM antibiotics at discharge. RN CM in to discuss progress with therapy and need for IV or IM antibiotics at discharge and need for possible SNF at discharge. Patient provided with SNF list and asked to provide preferences of facilities. RN CM updated that CM will follow up with patient in the morning. Patient had no further questions or concerns at this time.
--- NOTE | 2023-10-13 17:08 | CON.PCM.ID_ITS ---
Assessment & Plan Assessment/Plan (1) Bacteremia due to Gram-negative bacteria: PLAN: ESBL ecoli bacteremia from suspected urinary source. On jeannie, will continue. Feeling better. Will follow, thank you HPI Consult Data Date of Consult: 10/13/23 HPI Narrative Reason for Consultation: bacteremia HPI Narrative: ISIDRA WARREN, is a 73 F who presented with one week progressive fever, weakness, not feeling well. Some headache, nausea. No abd pain or flank pain, no dysuria, no rash. Came to ED, admitted on ceftriaxone, changed to meropenem due to growth of ESBL. Feeling better. Full ROS performed and neg except as noted above. [facility] Medical History Abrasion Ambulates with cane Arthritis Atherosclerotic heart disease of [place] coronary artery without angina pectoris Back pain Back problem C. difficile colitis Diastolic heart failure Elevated glucose Gastric reflux GERD (gastroesophageal reflux disease) Hearing difficulty High blood pressure High cholesterol History of diverticulitis History of hiatal hernia History of steroid therapy History of ulceration HTN (hypertension) IBS (irritable bowel syndrome) Low back pain Neuropathy Obesity Osteoarthritis Osteopenia Psoriatic arthritis Smoker Uses wheelchair Walker as ambulation aid Wears glasses Home Medications omega-3 fatty acids-fish oil 340 mg-1,000 mg capsule (Fish Oil) 1,000 mg PO DAILY supplment 11/10/15 [History Last Taken 10/11/23] tizanidine 4 mg tablet 4 mg PO QHS 11/10/15 [History Last Taken 11/16/15 21:30] calcium carbonate 600 mg calcium (1,500 mg) tablet 2,000 mg PO DAILY bone health 11/17/15 [History Last Taken 10/11/23] cholecalciferol (vitamin D3) 25 mcg (1,000 unit) tablet (Vitamin D3) 1,000 unit PO BID supplement 11/17/15 [History Last Taken 10/11/23] meloxicam 7.5 mg tablet 15 mg PO DAILY pain 10/14/16 [History Last Taken Unknown] folic acid 1 mg tablet 1 mg PO DAILY 04/05/22 [History Last Taken Unknown] melatonin 10 mg capsule 10 mg PO HS PRN Sleep 04/05/22 [History Last Taken 10/10/23] prednisone 5 mg tablet 1 tab PO DAILY 04/30/22 [History Last Taken Unknown] lansoprazole 30 mg capsule,delayed release 30 mg PO DAILY 05/27/23 [History Last Taken Unknown] methotrexate sodium 2.5 mg tablet 20 mg PO QWEEK 05/27/23 [History Last Taken Unknown] pantoprazole 40 mg tablet,delayed release 40 mg PO DAILY gerd 05/27/23 [History Last Taken Unknown] tenapanor 50 mg tablet (Ibsrela) 50 mg PO DAILY constipation 05/27/23 [History Last Taken Unknown] aspirin 81 mg chewable tablet 81 mg PO DAILY@0800 stent #0 tabs 06/13/23 [Rx Last Taken 10/11/23] buprenorphine 15 mcg/hour weekly transdermal patch 1 patch transdermal Q7D #4 ea 06/13/23 [Rx Last Taken Unknown] hydrocodone 10 mg-acetaminophen 325 mg tablet 0.5 tab PO BID Pain 3 days #6 tabs 06/13/23 [Rx Last Taken Unknown] miconazole nitrate 2 % topical powder (Desenex) 1 applic topical BID #0 grams 06/13/23 [Rx Last Taken 10/10/23] oxymetazoline 0.05 % nasal spray (Nasal [place] (oxymetazoline)) 2 spray NASAL X1 PRN NASAL CONGESTION #0 mL 06/13/23 [Rx Last Taken 10/10/23] polyethylene glycol 3350 17 gram oral powder packet 17 g PO DAILY #0 ea 06/13/23 [Rx Last Taken 10/10/23] potassium chloride 20 mEq oral packet 20 meq PO DAILY #30 ea 06/13/23 [Rx Last Taken 10/11/23] Bedside commode #1 ea 07/16/23 [Rx Last Taken Unknown] hydrochlorothiazide 25 mg tablet 25 mg PO DAILY #1 TAB 07/28/23 [Rx Last Taken Unknown] atorvastatin 40 mg tablet 40 mg PO QHS #90 tabs 08/04/23 [Rx Last Taken Unknown] clopidogrel 75 mg tablet (Plavix) 75 mg PO DAILY #90 tabs 08/04/23 [Rx Last Taken Unknown] metoprolol tartrate 25 mg tablet 12.5 mg (1/2 x 25 mg) PO BID #90 tabs 08/04/23 [Rx Last Taken Unknown] fluticasone propionate 50 mcg/actuation nasal spray,suspension 2 spray intranasal DAILY #16 grams 09/08/23 [Rx Last Taken Unknown] cephalexin 500 mg capsule 500 mg PO Q6 #28 CAPSULES 10/10/23 [Rx Last Taken 10/10/23] Allergy/AdvReac Type Severity Reaction Status Date / Time duloxetine [From Cymbalta] Allergy Intermediate Swelling Verified 10/11/23 06:29 erythromycin base Allergy Nausea/Vom/ Verified 10/11/23 06:29 Diarrhea pregabalin [From Lyrica] Allergy Swelling Verified 10/11/23 06:29 Family History Mother Diabetes Arthritis Heart disease CVA (cerebral vascular accident) Hypertension History of blood transfusion Father Pancreatic cancer Alcoholism Peptic ulcer disease Son Seizures Suicide attempt Surgical History H/O laminectomy History of appendectomy History of appendectomy History of breast biopsy History of colonoscopy (05/01/02) History of foot surgery History of spinal surgery Stented coronary artery (06/03/23) Social History Smoking Status: Former smoker how long ago did patient quit smoking: about 2 months ago alcohol intake: never substance use type: does not use what type of physical activity do you participate in: none seatbelt use: always do you feel safe at home: Yes Physical Exam Const alert, oriented x3 and no apparent distress General Appearance: cooperative HEENT normocephalic and head/scalp atraumatic Eyes PERRL and EOMs intact bilaterally Neck supple and No nodes Resp normal air movement and clear to auscultation bilaterally Cardio regular rate and regular rhythm GI soft to palpation, non-tender and non-distended Extremity General Extremity: Negative for edema Skin no rashes or lesions noted Neuro CN's II-XII intact bilaterally Lab / Micro Data Attestation: I reviewed the patient's lab results. 10/13/23 05:15 10/13/23 05:15 Labs: Laboratory Results - last 24 hr 10/11/23 06:36: Diff Path Review Reviewed 10/12/23 05:22: Diff Path Review Reviewed 10/13/23 05:15: WBC 12.8 H, RBC 3.13 L, Hgb 9.9 L, Hct 31.8 L, MCV 101.6 H, MCH 31.6, MCHC 31.1 L D, RDW Std Deviation 58.0 H, RDW Coeff of Sonya 15.7 H, Plt Count 359, MPV 9.9, Immature Gran % (Auto) 1.800 H, Neut % (Auto) 69.3, Lymph % (Auto) 13.9 L, [place] % (Auto) 11.8 H, Eos % (Auto) 2.8, Baso % (Auto) 0.4, Absolute Neuts (auto) 8.8 H, Absolute Lymphs (auto) 1.77, Nucleated RBC % 0, Differential Comment SCANNED, Diff Path Review May foll, Sodium 140, Potassium 4.5, Chloride 105, Carbon Dioxide 30.0, Anion Gap 5, BUN 13, Creatinine 0.60, Estim Creat Clear Calc 71.03, Est GFR (MDRD) Af Amer 125, Est GFR (MDRD) Non-Af 103, BUN/Creatinine Ratio 21.5 H, Glucose 113 H, Calcium 8.7 Micro: Microbiology 10/11/23 06:48 Blood Culture (Wb) - Anticubital Left Blood Culture - Final GNR lactose traffic signal repairer 10/11/23 06:36 Blood Culture (Wb) - Anticubital Left Blood Culture - Final ESBL Escherichia coli Capacity Legal Rocket Motor Tester Reflex Medical hold order details:: IF a medical hold is selected below, a suggested order for a MEDICAL HOLD will reflex upon signing the document. Next of kin: [place] law dictates a PRIORITY LIST for identifying legal decision-maker/legal next of kin in the following order (LNOK): 1st: The patient?s legal guardian, if any 2nd: The patient's spouse (if status is questionable, consult Risk Management) 3rd: The patient?s adult child(rajinder) (majority, if multiple children) 4th: The patient?s parents 5th: The patient?s adult siblings (majority, if multiple children siblings)
--- NOTE | 2023-10-13 17:52 | PN.HOSP_ITS ---
Reason for Visit Reason for Visit: Diagnoses Acute bronchitis due to other specified organisms (10/11/23) Urinary tract infection, site not specified (10/11/23) Bacteremia (10/11/23) Subjective Subjective Patient still feeling generally unwell, breathing roughly the same, overall just feeling weak, initially denied any type of urinary symptoms however then described urinary frequency and urgency, growing ESBL in urine and blood Objective Data Objective Data Vital Signs: Vital Signs Temp Pulse Resp BP Pulse Ox O2 Del Method O2 Flow Rate 98.2 F 63 18 151/67 H 100 Nasal Cannula 3 10/13/23 14:55 10/13/23 14:55 10/13/23 14:55 10/13/23 14:55 10/13/23 14:55 10/13/23 14:55 10/13/23 15:55 Oxygen Flow Rate (L/min) 3 Oxygen Delivery Method Nasal Cannula Weight: 94.9 kg Body Mass Index (BMI) 35.9 Intake & Output: Intake and Output for Last 24 Hours 10/11/23 10/12/23 10/13/23 23:59 23:59 23:59 Intake Total 3004 / 3004 1550 / 1550 480 / 480 Balance 3004 / 3004 1550 / 1550 480 / 480 Lab / Micro Data 10/13/23 05:15 10/13/23 05:15 Labs: Laboratory Results - last 24 hr 10/11/23 06:36: Diff Path Review Reviewed 10/12/23 05:22: Diff Path Review Reviewed 10/13/23 05:15: WBC 12.8 H, RBC 3.13 L, Hgb 9.9 L, Hct 31.8 L, MCV 101.6 H, MCH 31.6, MCHC 31.1 L D, RDW Std Deviation 58.0 H, RDW Coeff of Sonya 15.7 H, Plt Co unt 359, MPV 9.9, Immature Gran % (Auto) 1.800 H, Neut % (Auto) 69.3, Lymph % (Auto) 13.9 L, [place] % (Auto) 11.8 H, Eos % (Auto) 2.8, Baso % (Auto) 0.4, Absolute Neuts (auto) 8.8 H, Absolute Lymphs (auto) 1.77, Nucleated RBC % 0, Differential Comment SCANNED, Diff Path Review May foll, Sodium 140, Potassium 4.5, Chloride 105, Carbon Dioxide 30.0, Anion Gap 5, BUN 13, Creatinine 0.60, Estim Creat Clear Calc 71.03, Est GFR (MDRD) Af Amer 125, Est GFR (MDRD) Non-Af 103, BUN/Creatinine Ratio 21.5 H, Glucose 113 H, Calcium 8.7 Micro: Microbiology 10/11/23 06:48 Blood Culture (Wb) - Anticubital Left Blood Culture - Final GNR lactose unit coordinator 10/11/23 06:36 Blood Culture (Wb) - Anticubital Left Blood Culture - Final ESBL Escherichia coli 10/11/23 10:20 Mucosa - Nose Respiratory Panel (PCR) - Final Rhinovirus Physical Exam Narrative General: Alert, oriented HEENT: Atraumatic, normocephalic Eyes: Anicteric, normal conjunctiva, extraocular movements grossly intact Neck: Supple Respiratory: Scattered wheezes, normal respiratory effort Cardiovascular: Regular rate and rhythm GI: Soft, nontender, nondistended Extremities: 1+ bilateral lower extremity edema Musculoskeletal: Moving all extremities Neuro: No overt focal neurological deficits Skin: No rashes appreciated Psych: Cooperative Assessment & Plan Assessment/Plan (1) Acute UTI: (2) Acute viral bronchitis: PLAN: Plan This 71-year-old female being admitted for generalized weakness and increased shortness of breath for about 1 week. 1. Acute rhinovirus viral bronchitis on baseline interstitial lung disease/pulmonary fibrosis with chronic hypoxic respiratory failure: Patient is being admitted in PCU. On baseline O2 requirement 3 L. Respiratory panel shows rhinovirus. Patient is negative for COVID, flu and RSV. Patient follows in pulmonary clinic with Dr. Williamson and had flu vaccine. DuoNeb every 6 hourly. Incentive spirometry and PEP.. Low-sodium diet. Low-dose diuretic as needed. Currently patient looks dehydrated therefore no diuretic. Patient has mild leukocytosis probably from viral bronchitis. 10/12: Patient is mainly having URI symptoms nasal congestions, mucus. Symptomatic management with nasal saline and Flonase nasal spray. DuoNeb every 6 hourly for 1 day and then as needed. Mucinex DM, incentive spirometry and PEP. Repeat chest x-ray. Stop IV fluid. -10/13: Supportive care, on Mucinex, DuoNebs, home dose of 5 mg of prednisone 2. Recent diagnosis of UTI on October 10, 2023 with acute hypokalemia and hypomagnesemia-found to have ESBL UTI and ESBL bacteremia -Patient currently denies dysuria or acute change in limited symptoms. UA on 10/10 shows WBC 10-25, 2+ bacteria, 100 LE, positive nitrite. Urine culture prelim shows GNR lactose unit coordinator and more than 100,000 colonies. Patient started on IV ceftriaxone. Potassium 2.8, serum magnesium 1.5 and phosphorus 2.5 low normal. Oral Neutra-Phos and IV magnesium replacement ordered. 10/12: Both blood cultures growing preliminary GNR. Patient on IV ceftriaxone. No fever. -10/13: Urine and blood growing ESBL E. coli, ID consulted, patient switched to Merrem, will need IV or IM antibiotics on discharge, patient to go to SNF 3. Recent admission in May 2023 for non-STEMI, with eccentric mid segment 70 to 80% right coronary artery and nonocclusive coronary disease in the left main, left anterior descending artery, and the circumflex artery. On medical management. Patient on aspirin, Plavix, metoprolol 25 mg twice daily, HCTZ 25 mg daily and atorvastatin 40 mg daily. Echo in May 2023 shows EF 55 to 60%. No significant valvular abnormality reported. Patient has chronically elevated troponin. Twelve-lead EKG individually reviewed and shows chronic T wave inversion in V1 V2 and does not show acute change from previous May 2023 EKG. 1 more troponin ordered. 10/12: Continue above medications. Holding HCTZ. Resume when blood pressure permits and patient is well. Patient was on losartan but discontinued last cardiology visit June 2023 because of low blood pressure. -10/13: Continue present management 4. 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 5. Psoriatic arthritis-patient is on methotrexate chronically, this will be continued here. [facility]. #DVT ppx: Lovenox subcu Meenakshi West MD Time spent in the patient's overall evaluation,decision-making process, review of diagnostic data, adjustment of management, discussion with other providers, nursing nursing and ancillary staff involved in patient's care documentation, 35 minutes Capacity Legal Conduit Helper Reflex Medical hold order details:: IF a medical hold is selected below, a suggested order for a MEDICAL HOLD will reflex upon signing the document. Next of kin: [place] law dictates a PRIORITY LIST for identifying legal decision-maker/legal next of kin in the following order (LNOK): 1st: The patient?s legal guardian, if any 2nd: The patient's spouse (if status is questionable, consult Risk Management) 3rd: The patient?s adult child(rajinder) (majority, if multiple children) 4th: The patient?s parents 5th: The patient?s adult siblings (majority, if multiple children siblings) Charges/Coding Visit Charges Inpatient E&M: 03479 Subs Hosp L2
[2023-10-13] MEDS: Atorvastatin Calcium 40 MG Tablet PO (21:41)
[2023-10-13] MEDS: 0.9% Saline Lock 10 ML Syringe IV (23:13)
[2023-10-14] VITALS (11 sets, daily range): BP systolic 129–147; BP diastolic 61–92; PULSE 65–80; RESP 16–20; TEMP 36.6–36.7; O2SAT 97–100
[2023-10-14] MEDS: Meropenem 1 GM in 0.9% Normal Saline (100mL Bag) 100 ML IV ×3 (05:04→21:35)
[2023-10-14] MEDS: Ipratropium/Albuterol Sulfate 3 ML AMPUL.NEB INHALATION ×3 (06:49→19:44)
[2023-10-14 08:00] LABS: Absolute Lymphocyte Count 1.59 X10^3/uL (0.83-4.51); Absolute Neutrophil Count 7.4 X10^3/uL (2.0-7.7); Basophil# 0.04 X10^3/uL; Basophil% 0.4 % (0-1); Eosinophil# 0.44 X10^3/uL; Eosinophils% 4.1 % (0-5); Hematocrit 30.6 % (37-47); Hemoglobin 9.5 g/dL (12.0-15.0); Lymphocyte # 1.59 X10^3/ul (0.83-4.51); Lymphocyte % 14.9 % (19-41); Mean Corpuscular Hgb 31.8 pg (27.0-32.0); Mean Corpuscular Volume 102.3 fL (81-99); Mean Platelet Vol. 9.9 fl (6.2-12.0); Monocyte# 0.97 X10^3/uL; Monocyte% 9.1 % (0-10); NRBC Flagged by Analyzer 0 % (0-5); Neutrophil # 7.44 X10^3/uL (2.7-7.7); Neutrophil % 69.7 % (47-70); Platelet Count 441 K/mm3 (150-450); RBC Distribution Width CV 15.7 % (11.6-14.6); RBC Distribution Width SD 58.2 fl (35.1-43.9); Red Blood Count 2.99 M/mm3 (4.2-5.4); White Blood Count 10.7 K/mm3 (4.4-11.0)
[2023-10-14 08:27] LABS: Anion Gap 4 (5-15); BUN 12 mg/dL (7-18); BUN/Creat Ratio 21.1 RATIO (10-20); Chloride 106 mmol/L (98-107); Creatinine, Serum 0.57 mg/dL (0.55-1.02); EST Glomerular Filtration Rate 111 mL/min (>60); Est Glom Filt Rate - Afr Amer 134 mL/min (>60); Estimated Creatinine Clearance 71.03 ml/min; Glucose 87 mg/dL (74-106); Potassium 4.2 mmol/L (3.5-5.1); Sodium Level 141 mmol/L (136-145)
[2023-10-14] MEDS: Fluticasone 0.05% 1 SPRAY NASAL.SRY 2 SPRAY NASAL (09:10)
[2023-10-14] MEDS: Oxymetazoline 0.05% 1 SPRAY SPRAY.BTL 2 SPRAY NASAL (09:11)
[2023-10-14] MEDS: Potassium Chloride Oral Tablet 20 MEQ 40 MEQ PO (09:12)
[2023-10-14] MEDS: HYDROcodone Bitartrate/Apap 5/325 Tablet PO ×2 (09:12→21:37)
[2023-10-14] MEDS: Enoxaparin 40 MG/0.4 ML Syringe SC (09:12)
[2023-10-14] MEDS: guaiFENesin/D-Methorphan TAB.SR.12H 2 TABLET PO ×2 (09:13→21:37)
[2023-10-14] MEDS: Senna/Docusate Sodium 1 Tablet 2 TABLET PO ×2 (09:13→21:39)
[2023-10-14] MEDS: Meloxicam 7.5 MG Tablet PO (09:13)
[2023-10-14] MEDS: Miconazole Nitrate 43 GM Bottle 1 APPLIC TOPICAL ×2 (09:13→21:38)
[2023-10-14] MEDS: Polyethylene Glycol 3350 17 GM PACKET PO (09:14)
[2023-10-14] MEDS: Pantoprazole Sodium 40 MG Tablet PO (09:18)
[2023-10-14] MEDS: Clopidogrel Bisulfate 75 MG Tablet PO (09:18)
[2023-10-14] MEDS: Folic Acid 1 MG Tablet PO (09:18)
[2023-10-14] MEDS: predniSONE 5 MG Tablet PO (09:18)
[2023-10-14] MEDS: Metoprolol Tartrate 25 MG Tablet 12.5 MG PO ×2 (09:18→21:39)
[2023-10-14] MEDS: Aspirin 81 MG TAB.CHEW PO (09:20)
[2023-10-14] MEDS: Cholecalciferol (VIT D3) 25 MCG TABLET (1,000 UNITS) PO ×2 (10:17→21:39)
--- NOTE | 2023-10-14 10:37 | PCM.PN.ID ---
Physical Exam Narrative Feeling better, no fever, no abd pain Const alert and no apparent distress Resp normal air movement and clear to auscultation bilaterally Cardio regular rate and regular rhythm GI soft to palpation, non-tender and non-distended Skin no rashes or lesions noted ID ID: Route of nutrition/ use of supplements: [] Nutritional Intake: [] IV Site: [] [place] Catheter: [] Assessment & Plan Assessment/Plan (1) Bacteremia due to Gram-negative bacteria: PLAN: ESBL ecoli bacteremia from urinary source. On jeannie, will continue. Feeling better. Plan on d/c to ECF with midline and 7 more days ertapenem iv 1gm daily. Will need dose of erta 1gm x1 prior to leaving here. Will follow, wrote rx, d/w correctional casework specialist
--- NOTE | 2023-10-14 10:41 | CASEMGMT ---
SW met with patient. Introduced self and role at [facility]. SW asked patient if she has picked facilities yet. Patient's choices are: [facility], [facility] (if they take patient's insurance) and if not [facility] second, then [facility]. SW will work on referrals and let patient know who is able to take her. PARDEEP asked Tomasa to please send a referral to [facility]. Plan: SNF pending accepting facility and insurance approval. Flores MORTENSEN
--- NOTE | 2023-10-14 11:07 | CASEMGMT ---
Addendum entered by Tomasa Johns 10/14/23 13:52: Patient has been accepted by [facility] and precert will be submitted. Tomasa Johns, Discharge Planning Asst. Original Note: Discharge Planning Referral sent to [facility] at [place] via [facility]. Tomasa Johns, Discharge Planning Asst.
[2023-10-14 13:04] LABS: Pathologist Review Reviewed
--- NOTE | 2023-10-14 15:52 | PRO.PCM_ITS ---
Procedure Report Date of Procedure: 10/14/23 Midline insertion in right arm: Patient identity was verified with two patient identifiers. Hands were sanitized. The patient was positioned supine with right arm at 90 degrees. The patient's upper arm vasculature was assessed using ultrasound, and the right basilic vein was externally marked. An external measurement was obtained of 13 cm. Cap, mask, and prep gloves were donned. The underdrape was placed under the patient's arm. The site was prepped with chlorhexidine, and tourniquet was loosely applied. Prep gloves were discarded, and hands were sanitized. The sterile kit was opened with additional supplies dropped in. Sterile gown and gloves were donned, and the patient was draped. The sterile kit was assembled with all needle, introducer, connector, and catheter flushed with sterile normal saline. The marked site of insertion was anesthetized with 1% lidocaine. Lita lord tolerated well. The right basilic vein was then accessed using ultrasound guidance and guidewire was inserted to safety melissa. The tourniquet was released. The access needle was removed while securing the guidewire in place. The site was again anesthetized with 1% lidocaine, prior to insertion of introducer sheath and dilator. Patient tolerated well. The catheter was trimmed to a length of 13 cm, and a flushed needleless connector was attached. The catheter was then inserted through the introducer sheath, slowly. There was no resistance on insertion. The introducer sheath was retracted and peeled away, incrementally, while keeping the catheter secured. The catheter was fully inserted leaving 0 cm external. Blood return was verified and the midline was flushed with sterile normal saline in a pulsatile fashion. Total sterile flushes used for the insertion was 3 10 ml syringes, one from the kit. Finally, the insertion site was cleaned with chlorhexidine, and the catheter was secured using a StatLock. The site was covered with a Tegaderm CHG Dressing. Baseline arm circumference was obtained at the insertion site and measured 34 cm. Primary nurse is aware that the midline is ready for use. Procedures Radiology Radiology US Procedures: Other Procedure See Report (Inpatient Midline Insertion: MIDL)
--- NOTE | 2023-10-14 18:05 | PCM.PN.HOSP ---
Reason for Visit Reason for Visit: Diagnoses Acute bronchitis due to other specified organisms (10/11/23) Urinary tract infection, site not specified (10/11/23) Bacteremia (10/11/23) Subjective Subjective Patient reports still having some nasal congestion, feeling maybe slightly better than yesterday, fairly similar overall. Patient had PICC placed today Objective Data Objective Data Vital Signs: Vital Signs Temp Pulse Resp BP Pulse Ox O2 Del Method O2 Flow Rate 98.1 F 67 16 129/69 H 98 Nasal Cannula 2 10/14/23 15:09 10/14/23 15:09 10/14/23 15:09 10/14/23 15:09 10/14/23 15:09 10/14/23 15:09 10/14/23 15:09 Oxygen Flow Rate (L/min) 2 Oxygen Delivery Method Nasal Cannula Weight: 94.9 kg Body Mass Index (BMI) 35.9 Intake & Output: Intake and Output for Last 24 Hours 10/12/23 10/13/23 10/14/23 23:59 23:59 23:59 Intake Total 1550 / 1550 840 / 840 1080 / 1080 Balance 1550 / 1550 840 / 840 1080 / 1080 Lab / Micro Data 10/14/23 07:00 10/14/23 07:00 Labs: Laboratory Results - last 24 hr 10/13/23 05:15: Diff Path Review Reviewed 10/14/23 07:00: WBC 10.7, RBC 2.99 L, Hgb 9.5 L, Hct 30.6 L, MCV 102.3 H, MCH 31.8, MCHC 31.0 L, RDW Std Deviation 58.2 H, RDW Coeff of Sonya 15.7 H, Plt Count 441, MPV 9.9, Immature Gran % (Auto) 1.800 H, Neut % (Auto) 69.7, Lymph % (Auto) 14.9 L, [place] % (Auto) 9.1, Eos % (Auto) 4.1, Baso % (Auto) 0.4, Absolute Neuts (auto) 7.4, Absolute Lymphs (auto) 1.59, Nucleated RBC % 0, Sodium 141, Potassium 4.2, Chloride 106, Carbon Dioxide 31.0, Anion Gap 4 L, BUN 12, Creatinine 0.57, Estim Creat Clear Calc 71.03, Est GFR (MDRD) Af Amer 134, Est GFR (MDRD) Non-Af 111, BUN/Creatinine Ratio 21.1 H, Glucose 87, Calcium 9.0 Micro: Microbiology 10/11/23 06:48 Blood Culture (Wb) - Anticubital Left Blood Culture - Final GNR lactose land leasing examiner 10/11/23 06:36 Blood Culture (Wb) - Anticubital Left Blood Culture - Final ESBL Escherichia coli 10/11/23 10:20 Mucosa - Nose Respiratory Panel (PCR) - Final Rhinovirus Physical Exam Narrative General: Alert, oriented HEENT: Atraumatic, normocephalic Eyes: Anicteric, normal conjunctiva, extraocular movements grossly intact Neck: Supple Respiratory: No wheezes or rhonchi, normal respiratory effort Cardiovascular: Regular rate and rhythm GI: Soft, nontender, nondistended Extremities: 1+ bilateral lower extremity edema Musculoskeletal: Moving all extremities Neuro: No overt focal neurological deficits Skin: No rashes appreciated Psych: Cooperative Assessment & Plan Assessment/Plan (1) Acute UTI: (2) Acute viral bronchitis: PLAN: Plan This 71-year-old female being admitted for generalized weakness and increased shortness of breath for about 1 week. 1. Acute rhinovirus viral bronchitis on baseline interstitial lung disease/pulmonary fibrosis with chronic hypoxic respiratory failure: Patient is being admitted in PCU. On baseline O2 requirement 3 L. Respiratory panel shows rhinovirus. Patient is negative for COVID, flu and RSV. Patient follows in pulmonary clinic with Dr. Williamson and had flu vaccine. DuoNeb every 6 hourly. Incentive spirometry and PEP.. Low-sodium diet. Low-dose diuretic as needed. Currently patient looks dehydrated therefore no diuretic. Patient has mild leukocytosis probably from viral bronchitis. 10/12: Patient is mainly having URI symptoms nasal congestions, mucus. Symptomatic management with nasal saline and Flonase nasal spray. DuoNeb every 6 hourly for 1 day and then as needed. Mucinex DM, incentive spirometry and PEP. Repeat chest x-ray. Stop IV fluid. -10/13: Supportive care, on Mucinex, DuoNebs, home dose of 5 mg of prednisone -10/14: Less wheezes today, continue supportive care 2. Recent diagnosis of UTI on October 10, 2023 with acute hypokalemia and hypomagnesemia-found to have ESBL UTI and ESBL bacteremia -Patient currently denies dysuria or acute change in limited symptoms. UA on 10/10 shows WBC 10-25, 2+ bacteria, 100 LE, positive nitrite. Urine culture prelim shows GNR lactose land leasing examiner and more than 100,000 colonies. Patient started on IV ceftriaxone. Potassium 2.8, serum magnesium 1.5 and phosphorus 2.5 low normal. Oral Neutra-Phos and IV magnesium replacement ordered. 10/12: Both blood cultures growing preliminary GNR. Patient on IV ceftriaxone. No fever. -10/13: Urine and blood growing ESBL E. coli, ID consulted, patient switched to Merrem, will need IV or IM antibiotics on discharge, patient to go to SNF -10/14: Patient status post PICC, will go to SNF on ertapenem for 7 days 3. Recent admission in May 2023 for non-STEMI, with eccentric mid segment 70 to 80% right coronary artery and nonocclusive coronary disease in the left main, left anterior descending artery, and the circumflex artery. On medical management. Patient on aspirin, Plavix, metoprolol 25 mg twice daily, HCTZ 25 mg daily and atorvastatin 40 mg daily. Echo in May 2023 shows EF 55 to 60%. No significant valvular abnormality reported. Patient has chronically elevated troponin. Twelve-lead EKG individually reviewed and shows chronic T wave inversion in V1 V2 and does not show acute change from previous May 2023 EKG. 1 more troponin ordered. 10/12: Continue above medications. Holding HCTZ. Resume when blood pressure permits and patient is well. Patient was on losartan but discontinued last cardiology visit June 2023 because of low blood pressure. -10/13: Continue present management 4. 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 5. Psoriatic arthritis-patient is on methotrexate chronically, this will be continued here. Patient follows outside critical care nurse practitioner for psoriatic arthritis. -10/14: Holding methotrexate while patient on antibiotics, has remained on prednisone 5 mg #DVT ppx: Lovenox subcu Meenakshi West MD Time spent in the patient's overall evaluation,decision-making process, review of diagnostic data, adjustment of management, discussion with other providers, nursing nursing and ancillary staff involved in patient's care documentation, 35 minutes Capacity Legal Clean Room Operator Reflex Medical hold order details:: IF a medical hold is selected below, a suggested order for a MEDICAL HOLD will reflex upon signing the document. Next of kin: [place] law dictates a PRIORITY LIST for identifying legal decision-maker/legal next of kin in the following order (LNOK): 1st: The patient?s legal guardian, if any 2nd: The patient's spouse (if status is questionable, consult Risk Management) 3rd: The patient?s adult child(rajinder) (majority, if multiple children) 4th: The patient?s parents 5th: The patient?s adult siblings (majority, if multiple children siblings) Charges/Coding Visit Charges Inpatient E&M: 61331 Subs Hosp L2
[2023-10-14] MEDS: Atorvastatin Calcium 40 MG Tablet PO (21:39)
[2023-10-15 03:00] VITALS: BP 152/70; PULSE 64; RESP 16; TEMP 36.6; O2SAT 97
[2023-10-15] MEDS: Meropenem 1 GM in 0.9% Normal Saline (100mL Bag) 100 ML IV ×2 (05:09→13:33)
[2023-10-15 06:44] VITALS: PULSE 68; RESP 18; O2SAT 94
[2023-10-15] MEDS: Ipratropium/Albuterol Sulfate 3 ML AMPUL.NEB INHALATION ×2 (06:44→13:17)
[2023-10-15 07:41] LABS: Absolute Lymphocyte Count 1.78 X10^3/uL (0.83-4.51); Absolute Neutrophil Count 5.9 X10^3/uL (2.0-7.7); Basophil# 0.11 X10^3/uL; Basophil% 1.2 % (0-1); Eosinophil# 0.48 X10^3/uL; Eosinophils% 5.1 % (0-5); Hematocrit 30.5 % (37-47); Hemoglobin 9.5 g/dL (12.0-15.0); Lymphocyte # 1.78 X10^3/ul (0.83-4.51); Lymphocyte % 18.9 % (19-41); Mean Corp Hgb Conc 31.1 g/dL (32-36); Mean Corpuscular Hgb 31.9 pg (27.0-32.0); Mean Corpuscular Volume 102.3 fL (81-99); Mean Platelet Vol. 9.3 fl (6.2-12.0); Monocyte# 0.92 X10^3/uL; Monocyte% 9.8 % (0-10); NRBC Flagged by Analyzer 0 % (0-5); Neutrophil % 62.6 % (47-70); Platelet Count 495 K/mm3 (150-450); RBC Distribution Width CV 15.5 % (11.6-14.6); RBC Distribution Width SD 57.5 fl (35.1-43.9); Red Blood Count 2.98 M/mm3 (4.2-5.4); White Blood Count 9.4 K/mm3 (4.4-11.0)
[2023-10-15 08:05] LABS: Anion Gap 2 (5-15); BUN 10 mg/dL (7-18); BUN/Creat Ratio 16.9 RATIO (10-20); Calcium,Total 9.4 mg/dL (8.5-10.1); Chloride 105 mmol/L (98-107); Creatinine, Serum 0.59 mg/dL (0.55-1.02); EST Glomerular Filtration Rate 106 mL/min (>60); Est Glom Filt Rate - Afr Amer 128 mL/min (>60); Estimated Creatinine Clearance 71.03 ml/min; Glucose 93 mg/dL (74-106); Potassium 4.3 mmol/L (3.5-5.1); Sodium Level 140 mmol/L (136-145)
[2023-10-15 08:59] VITALS: BP 148/63; PULSE 62; RESP 16; TEMP 36.4; O2SAT 98
[2023-10-15] MEDS: Fluticasone 0.05% 1 SPRAY NASAL.SRY 2 SPRAY NASAL (09:02)
[2023-10-15] MEDS: Polyethylene Glycol 3350 17 GM PACKET PO (09:03)
[2023-10-15] MEDS: Cholecalciferol (VIT D3) 25 MCG TABLET (1,000 UNITS) PO (09:03)
[2023-10-15 09:06] VITALS: BP 148/62; PULSE 62
[2023-10-15] MEDS: guaiFENesin/D-Methorphan TAB.SR.12H 2 TABLET PO (09:06)
[2023-10-15] MEDS: Potassium Chloride Oral Tablet 20 MEQ 40 MEQ PO (09:06)
[2023-10-15] MEDS: Pantoprazole Sodium 40 MG Tablet PO (09:06)
[2023-10-15] MEDS: Meloxicam 7.5 MG Tablet PO (09:06)
[2023-10-15] MEDS: predniSONE 5 MG Tablet PO (09:06)
[2023-10-15] MEDS: Metoprolol Tartrate 25 MG Tablet 12.5 MG PO (09:06)
[2023-10-15] MEDS: Aspirin 81 MG TAB.CHEW PO (09:06)
[2023-10-15] MEDS: Clopidogrel Bisulfate 75 MG Tablet PO (09:07)
[2023-10-15] MEDS: Oxymetazoline 0.05% 1 SPRAY SPRAY.BTL 2 SPRAY NASAL (09:07)
[2023-10-15] MEDS: Senna/Docusate Sodium 1 Tablet 2 TABLET PO (09:07)
[2023-10-15] MEDS: HYDROcodone Bitartrate/Apap 5/325 Tablet PO (09:07)
[2023-10-15] MEDS: Folic Acid 1 MG Tablet PO (09:07)
[2023-10-15] MEDS: Enoxaparin 40 MG/0.4 ML Syringe SC (09:08)
[2023-10-15] MEDS: Miconazole Nitrate 43 GM Bottle 1 APPLIC TOPICAL (09:08)
--- NOTE | 2023-10-15 11:40 | CASEMGMT ---
Patient was approved for [facility]. SW notified physician and RN. Plan: d/c to [facility] under skilled level of care on a convalescent stay. [facility] will transport patient. Flores MORTENSEN
--- NOTE | 2023-10-15 11:41 | CASEMGMT ---
[address]charge [address] has obtain auth for admission. Tomasa Johns, Discharge Planning Asst.
[2023-10-15 13:17] VITALS: PULSE 55; RESP 18
[2023-10-15 15:00] VITALS: BP 137/57; PULSE 61; RESP 16; TEMP 36.5; O2SAT 97
--- NOTE | 2023-10-15 15:08 | PCM.TXEXTCAR ---
Diet Diet Order/Speech Therapy: 10/11/23 12:11 Diet: Regular - General Food consistency:: Regular Liquid Consistency:: Regular/Thin Routine Orders/Code Status Suppository Type: Dulcolax 10mg Suppository Frequency: Daily PRN O2 Liters per Minute: 2 O2 Frequency: Continuous Keep PO Greater than or Equal to (%): 90 Routine Lab Work: - (BMP, LFT, CBC while on antibiotics to be faxed to [phone]) Code Status: Full Code Therapies Physical Therapy: Eval and Treat Occupational Therapy: Eval and Treat Problem/Diagnosis (1) Acute UTI: Status: Acute Code(s): N39.0 - Urinary tract infection, site not specified (2) Acute viral bronchitis: Status: Acute Code(s): J20.8 - Acute bronchitis due to other specified organisms (3) Rhinovirus: Status: Acute Code(s): B34.8 - Other viral infections of unspecified site (4) UTI due to extended-spectrum beta lactamase (ESBL) producing Escherichia coli: Status: Acute Code(s): N39.0 - Urinary tract infection, site not specified; B96.29 - Other Escherichia coli [E. coli] as the cause of diseases classified elsewhere; Z16.12 - Extended spectrum beta lactamase (ESBL) resistance (5) Stented coronary artery: Status: Acute Code(s): Z95.5 - Presence of coronary angioplasty implant and graft Comment: JAIRO to mid RCA (6) Psoriatic arthritis: Status: Acute Code(s): L40.50 - Arthropathic psoriasis, unspecified Plan #Acute rhinovirus viral bronchitis on baseline interstitial lung disease/pulmonary fibrosis with chronic hypoxic respiratory failure on 2L o2 at rest #ESBL UTI and ESBL bacteremia #Recent admission in May 2023 for non-STEMI, s/p JAIRO for CAD #Degenerative disc disease lumbar spine with chronic pain #Psoriatic arthritis This 71-year-old female with a history of pulmonary fibrosis and chronic hypoxic respiratory failure on 2 L home O2 at rest, CAD with JAIRO, degenerative disc disease on chronic opiate therapy, psoriatic arthritis admitted 10/11 for generalized weakness and increased shortness of breath for about 1 week. She was found to have rhinovirus and was treated with nebulizers and supportive care but also had a UTI that was positive for ESBL and blood cultures also grew ESBL E. coli, infectious disease consulted and patient given PICC line and placed on ertapenem. Overall patient did well and on day of discharge was feeling better with no new complaints. Discharge instructions as follows: -Please hold methotrexate while taking antibiotics -You will need to be dependent for 7 more days with weekly BMP, LFT, CBC while on antibiotics to be faxed to [phone] -Buprenorphine patch will need changed on Friday, patient has 2 more patches at home, should be able to have somebody bring patches from home, short prescription of hydrocodone sent as well which is a chronic medication will need to be continued -Please call your primary care provider's office upon discharge to schedule a hospital follow up within 1 week. -For any concerning signs or symptoms please call 911 or proceed to the nearest emergency department Allergies/Procedures Done in Hospital Allergies duloxetine [From Cymbalta] Allergy (Intermediate, Verified 10/11/23 06:29) Swelling Nausea erythromycin base Allergy (Verified 10/11/23 06:29) Nausea/Vom/Diarrhea pregabalin [From Lyrica] Allergy (Verified 10/11/23 06:29) Swelling Procedures: PICC line placement Type of Care/Length of Stay Estimated LOS: Convalescent Care Less Than 30 days Type of Care Needed: Skilled Rehab Potential: Fair Prognosis: Fair Additional Orders/Day of Discharge Day of Discharge: 10/15/23 Discharge Plan Admission Admit Date/Time: 10/11/23 10:54 Primary Reason for Your Visit: Shortness of breath Attending Provider: Meenakshi West Primary Care Provider: Pedro Williamson Consulting Providers: Melquiades Hayward; Marquis Peñaloza Instructions Patient Instructions: ED UTIs Women Additional Instructions / Restrictions: DISCHARGE INSTRUCTIONS PLEASE READ *Please take this with you to your next doctors appointment* -Please hold methotrexate while taking antibiotics -You will need to be dependent for 7 more days with weekly BMP, LFT, CBC while on antibiotics to be faxed to [phone] -Buprenorphine patch will need changed on Friday, patient has 2 more patches at home, should be able to have somebody bring patches from home, short prescription of hydrocodone sent as well which is a chronic medication will need to be continued -Please call your primary care provider's office upon discharge to schedule a hospital follow up within 1 week. -For any concerning signs or symptoms please call 911 or proceed to the nearest emergency department Discharge Orders/Prescriptions Prescriptions: New ertapenem 1 gram recon soln 1 g IV Q24H Qty: 7 0RF Rx Instructions: dx: ESBL bacteremia weekly bmp, LFT, and cbc while on iv abx. Fax to [phone] Mucinex DM 30-600 mg Tablet Extended Release 12 Hr 2 tab PO BID Qty: 0 0RF ipratropium-albuterol 0.5 mg-3 mg(2.5 mg base)/3 mL Solution For Nebulization 3 ml inhalation Q6HWA.RT Qty: 0 0RF [place] Nasal 0.65 % Aerosol,[place] 2 spray NASAL TID PRN PRN (Reason: NASAL DRYNESS) Qty: 0 0RF Continued melatonin 10 mg capsule 10 mg PO HS PRN (Reason: Sleep) folic acid 1 mg tablet 1 mg PO DAILY lansoprazole 30 mg capsule,delayed release(DR/EC) 30 mg PO DAILY Rx Instructions: in PM Ibsrela 50 mg tablet 50 mg PO DAILY Rx Instructions: must administer immediately before first meal of day/breakfast fluticasone propionate 50 mcg/actuation spray,suspension 2 spray intranasal DAILY Qty: 16 3RF tizanidine 4 MG tablet 4 mg PO QHS 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 Fish Oil 1 EACH capsule 1,000 mg PO DAILY Patient Comments: SUPPLEMENT calcium carbonate 600 MG tablet 2,000 mg PO DAILY Patient Comments: CALCIUM SUPPLEMENT cholecalciferol (vitamin D3) [Vitamin D3] 1,000 UNIT tablet 1,000 unit PO BID Patient Comments: VIT D SUPPLEMENT prednisone 5 mg tablet 1 tab PO DAILY Hold Instructions: Resume on 06/23/23. hydrocodone-acetaminophen 10-325 mg tablet 0.5 tab PO BID 3 Days Qty: 6 0RF polyethylene glycol 3350 17 gram Powder In Packet 17 g PO DAILY Qty: 0 0RF oxymetazoline [Nasal [place] (oxymetazoline)] 0.05 % [place],Non-Aerosol 2 spray NASAL X1 PRN (Reason: NASAL CONGESTION) Qty: 0 0RF miconazole nitrate [Desenex] 2 % Powder 1 applic topical BID Qty: 0 0RF Protocol: *Topical Application Instructions APPLICATION INSTRUCTIONS: APPLY TO GROIN AND FOLDS aspirin 81 mg Tablet,Chewable 81 mg PO DAILY@0800 Qty: 0 0RF potassium chloride 20 mEq packet 20 meq PO DAILY Qty: 30 0RF buprenorphine 15 mcg/hour patch weekly 1 patch transdermal Q7D Qty: 4 0RF Rx Instructions: will need new patch on the . (DME) Bedside commode See Rx Instructions .Route .MEDSUPPLY Qty: 1 0RF Rx Instructions: As directed hydrochlorothiazide 25 mg tablet 25 mg PO DAILY Qty: 1 0RF atorvastatin 40 mg tablet 40 mg PO QHS Qty: 90 3RF clopidogrel [Plavix] 75 mg tablet 75 mg PO DAILY Qty: 90 3RF metoprolol tartrate 25 mg tablet 12.5 mg PO BID Qty: 90 3RF Changed meloxicam 7.5 MG tablet 7.5 mg PO DAILY Qty: 30 0RF Held methotrexate sodium 2.5 mg tablet 20 mg PO QWEEK Hold Instructions: Resume on 10/24/23. Rx Instructions: SUNDAYS Discontinued pantoprazole 40 mg tablet,delayed release (DR/EC) 40 mg PO DAILY Rx Instructions: in AM cephalexin [cephalexin] 500 mg capsule 500 mg PO Q6 Qty: 28 0RF Referrals / Follow Up: Pedro Williamson DO [Primary Care Provider] - Within 1 Week Disposition Disposition (needs filled in before D/C Order can be placed): [facility]
--- NOTE | 2023-10-15 15:27 | PCM.DC.SUM ---
Providers Date of Admission: 10/11/23 Date of Discharge: 10/15/23 Primary Care Physician: Dr. Pedro Williamson, Consultations 10/13/23 09:02 Consult: Infectious Disease Routine Consulting Provider: Marquis Peñaloza Reason for Consult: ESBL ecoli bacteremia EMERGENT Consult: No MD Notified: Yes Date Notified: 10/13/23 Time Notified: 11:09 Method of Notification: Answering Service Reason For Visit: GGEN WEAKNESS Diagnosis Discharge Diagnosis (1) Acute UTI: Status: Acute Code(s): N39.0 - Urinary tract infection, site not specified (2) Acute viral bronchitis: Status: Acute Code(s): J20.8 - Acute bronchitis due to other specified organisms (3) Rhinovirus: Status: Acute Code(s): B34.8 - Other viral infections of unspecified site (4) UTI due to extended-spectrum beta lactamase (ESBL) producing Escherichia coli: Status: Acute Code(s): N39.0 - Urinary tract infection, site not specified; B96.29 - Other Escherichia coli [E. coli] as the cause of diseases classified elsewhere; Z16.12 - Extended spectrum beta lactamase (ESBL) resistance (5) Stented coronary artery: Status: Acute Code(s): Z95.5 - Presence of coronary angioplasty implant and graft (6) Psoriatic arthritis: Status: Acute Code(s): L40.50 - Arthropathic psoriasis, unspecified Plan #Acute rhinovirus viral bronchitis on baseline interstitial lung disease/pulmonary fibrosis with chronic hypoxic respiratory failure on 2L o2 at rest #ESBL UTI and ESBL bacteremia #Recent admission in May 2023 for non-STEMI, s/p JAIRO for CAD #Degenerative disc disease lumbar spine with chronic pain #Psoriatic arthritis Medications at Discharge Home Medications omega-3 fatty acids-fish oil 340 mg-1,000 mg capsule (Fish Oil) 1,000 mg PO DAILY supplment 11/10/15 tizanidine 4 mg tablet 4 mg PO QHS 11/10/15 calcium carbonate 600 mg calcium (1,500 mg) tablet 2,000 mg PO DAILY bone health 11/17/15 cholecalciferol (vitamin D3) 25 mcg (1,000 unit) tablet (Vitamin D3) 1,000 unit PO BID supplement 11/17/15 folic acid 1 mg tablet 1 mg PO DAILY 04/05/22 melatonin 10 mg capsule 10 mg PO HS PRN Sleep 04/05/22 prednisone 5 mg tablet 1 tab PO DAILY 04/30/22 lansoprazole 30 mg capsule,delayed release 30 mg PO DAILY 05/27/23 methotrexate sodium 2.5 mg tablet 20 mg PO QWEEK 05/27/23 tenapanor 50 mg tablet (Ibsrela) 50 mg PO DAILY constipation 05/27/23 aspirin 81 mg chewable tablet 81 mg PO DAILY@0800 stent #0 tabs 06/13/23 buprenorphine 15 mcg/hour weekly transdermal patch 1 patch transdermal Q7D #4 ea 06/13/23 miconazole nitrate 2 % topical powder (Desenex) 1 applic topical BID #0 grams 06/13/23 oxymetazoline 0.05 % nasal spray (Nasal Stowell (oxymetazoline)) 2 spray NASAL X1 PRN NASAL CONGESTION #0 mL 06/13/23 polyethylene glycol 3350 17 gram oral powder packet 17 g PO DAILY #0 ea 06/13/23 potassium chloride 20 mEq oral packet 20 meq PO DAILY #30 ea 06/13/23 Bedside commode #1 ea 07/16/23 hydrochlorothiazide 25 mg tablet 25 mg PO DAILY #1 TAB 07/28/23 atorvastatin 40 mg tablet 40 mg PO QHS #90 tabs 08/04/23 clopidogrel 75 mg tablet (Plavix) 75 mg PO DAILY #90 tabs 08/04/23 metoprolol tartrate 25 mg tablet 12.5 mg (1/2 x 25 mg) PO BID #90 tabs 08/04/23 fluticasone propionate 50 mcg/actuation nasal spray,suspension 2 spray intranasal DAILY #16 grams 09/08/23 ertapenem 1 gram solution for injection 1 g IV Q24H #7 ea 10/14/23 dextromethorphan-guaifenesin 30 mg-600 mg tablet extended [id number] hr (Mucinex DM) 2 tab PO BID #0 tabs 10/15/23 hydrocodone 10 mg-acetaminophen 325 mg tablet 0.5 tab PO BID Pain 3 days #6 tabs 10/15/23 ipratropium 0.5 mg-albuterol 3 mg (2.5 mg base)/3 mL nebulization soln 3 ml inhalation Q6HWA.RT #0 mL 10/15/23 meloxicam 7.5 mg tablet 7.5 mg PO DAILY pain #30 tabs 10/15/23 sodium chloride 0.65 % nasal spray aerosol (Deep Sea Nasal) 2 spray NASAL TID PRN PRN NASAL DRYNESS #0 mL 10/15/23 Hospital Course Procedures PICC line placement Summary of Care Provided Minutes Spent on Discharge: 32 Hospital Course: This 71-year-old female with a history of pulmonary fibrosis and chronic hypoxic respiratory failure on 2 L home O2 at rest, CAD with JAIRO, degenerative disc disease on chronic opiate therapy, psoriatic arthritis admitted 10/11 for generalized weakness and increased shortness of breath for about 1 week. She was found to have rhinovirus and was treated with nebulizers and supportive care but also had a UTI that was positive for ESBL and blood cultures also grew ESBL E. coli, infectious disease consulted and patient given PICC line and placed on ertapenem. Overall patient did well and on day of discharge was feeling better with no new complaints. Discharge instructions as follows: -Please hold methotrexate while taking antibiotics -You will need to be dependent for 7 more days with weekly BMP, LFT, CBC while on antibiotics to be faxed to [phone] -Buprenorphine patch will need changed on Friday, patient has 2 more patches at home, should be able to have somebody bring patches from home, short prescription of hydrocodone sent as well which is a chronic medication will need to be continued -Please call your primary care provider's office upon discharge to schedule a hospital follow up within 1 week. -For any concerning signs or symptoms please call 911 or proceed to the nearest emergency department Physical Exam Narrative General: Alert, oriented HEENT: Atraumatic, normocephalic Eyes: Anicteric, normal conjunctiva, extraocular movements grossly intact Neck: Supple Respiratory: No wheezes or rhonchi, normal respiratory effort Cardiovascular: Regular rate and rhythm GI: Soft, nontender, nondistended Extremities: 1+ bilateral lower extremity edema Musculoskeletal: Moving all extremities Neuro: No overt focal neurological deficits Skin: No rashes appreciated Psych: Cooperative Weight / BMI Weight Weight: 94.9 kg Body Mass Index (BMI) 35.9 ABG / Lab / Microbiology Data 10/15/23 07:23 10/15/23 07:23 Laboratory: Laboratory Results - last 24 hr 10/15/23 07:23: WBC 9.4, RBC 2.98 L, Hgb 9.5 L, Hct 30.5 L, MCV 102.3 H, MCH 31.9, MCHC 31.1 L, RDW Std Deviation 57.5 H, RDW Coeff of Sonya 15.5 H, Plt Count 495 H, MPV 9.3, Immature Gran % (Auto) 2.400 H, Neut % (Auto) 62.6, Lymph % (Auto) 18.9 L, Louisa % (Auto) 9.8, Eos % (Auto) 5.1 H, Baso % (Auto) 1.2 H, Absolute Neuts (auto) 5.9, Absolute Lymphs (auto) 1.78, Nucleated RBC % 0, Sodium 140, Potassium 4.3, Chloride 105, Carbon Dioxide 33.0 H, Anion Gap 2 L, BUN 10, Creatinine 0.59, Estim Creat Clear Calc 71.03, Est GFR (MDRD) Af Amer 128, Est GFR (MDRD) Non-Af 106, BUN/Creatinine Ratio 16.9, Glucose 93, Calcium 9.4 Microbiology: Microbiology 10/11/23 06:48 Blood Culture (Wb) - Anticubital Left Blood Culture - Final GNR lactose colored liquid plastic applier 10/11/23 06:36 Blood Culture (Wb) - Anticubital Left Blood Culture - Final ESBL Escherichia coli 10/11/23 10:20 Mucosa - Nose Respiratory Panel (PCR) - Final Rhinovirus D/C Instructions Discharge Diet: - (DASH diet) Meaningful Use Info Meaningful Use Diagnoses (Choose all that apply): None applicable Discharge Plan Admission Admit Date/Time: 10/11/23 10:54 Primary Reason for Your Visit: Shortness of breath Attending Provider: Meenakshi West Primary Care Provider: Pedro Williamson Consulting Providers: Melquiades Hayward; Marquis Peñaloza Instructions Patient Instructions: ED UTIs Women Additional Instructions / Restrictions: DISCHARGE INSTRUCTIONS PLEASE READ *Please take this with you to your next doctors appointment* -Please hold methotrexate while taking antibiotics -You will need to be dependent for 7 more days with weekly BMP, LFT, CBC while on antibiotics to be faxed to [phone] -Buprenorphine patch will need changed on Friday, patient has 2 more patches at home, should be able to have somebody bring patches from home, short prescription of hydrocodone sent as well which is a chronic medication will need to be continued -Please call your primary care provider's office upon discharge to schedule a hospital follow up within 1 week. -For any concerning signs or symptoms please call 911 or proceed to the nearest emergency department Discharge Orders/Prescriptions Prescriptions: New ertapenem 1 gram recon soln 1 g IV Q24H Qty: 7 0RF Rx Instructions: dx: ESBL bacteremia weekly bmp, LFT, and cbc while on iv abx. Fax to [phone] Mucinex DM 30-600 mg Tablet Extended Release 12 Hr 2 tab PO BID Qty: 0 0RF ipratropium-albuterol 0.5 mg-3 mg(2.5 mg base)/3 mL Solution For Nebulization 3 ml inhalation Q6HWA.RT Qty: 0 0RF Deep Sea Nasal 0.65 % Aerosol,Stowell 2 spray NASAL TID PRN PRN (Reason: NASAL DRYNESS) Qty: 0 0RF Continued melatonin 10 mg capsule 10 mg PO HS PRN (Reason: Sleep) folic acid 1 mg tablet 1 mg PO DAILY lansoprazole 30 mg capsule,delayed release(DR/EC) 30 mg PO DAILY Rx Instructions: in PM Ibsrela 50 mg tablet 50 mg PO DAILY Rx Instructions: must administer immediately before first meal of day/breakfast fluticasone propionate 50 mcg/actuation spray,suspension 2 spray intranasal DAILY Qty: 16 3RF tizanidine 4 MG tablet 4 mg PO QHS 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 Fish Oil 1 EACH capsule 1,000 mg PO DAILY Patient Comments: SUPPLEMENT calcium carbonate 600 MG tablet 2,000 mg PO DAILY Patient Comments: CALCIUM SUPPLEMENT cholecalciferol (vitamin D3) [Vitamin D3] 1,000 UNIT tablet 1,000 unit PO BID Patient Comments: VIT D SUPPLEMENT prednisone 5 mg tablet 1 tab PO DAILY Hold Instructions: Resume on 06/23/23. hydrocodone-acetaminophen 10-325 mg tablet 0.5 tab PO BID 3 Days Qty: 6 0RF polyethylene glycol 3350 17 gram Powder In Packet 17 g PO DAILY Qty: 0 0RF oxymetazoline [Nasal Stowell (oxymetazoline)] 0.05 % Stowell,Non-Aerosol 2 spray NASAL X1 PRN (Reason: NASAL CONGESTION) Qty: 0 0RF miconazole nitrate [Desenex] 2 % Powder 1 applic topical BID Qty: 0 0RF Protocol: *Topical Application Instructions APPLICATION INSTRUCTIONS: APPLY TO GROIN AND FOLDS aspirin 81 mg Tablet,Chewable 81 mg PO DAILY@0800 Qty: 0 0RF potassium chloride 20 mEq packet 20 meq PO DAILY Qty: 30 0RF buprenorphine 15 mcg/hour patch weekly 1 patch transdermal Q7D Qty: 4 0RF Rx Instructions: will need new patch on the . (DME) Bedside commode See Rx Instructions .Route .MEDSUPPLY Qty: 1 0RF Rx Instructions: As directed hydrochlorothiazide 25 mg tablet 25 mg PO DAILY Qty: 1 0RF atorvastatin 40 mg tablet 40 mg PO QHS Qty: 90 3RF clopidogrel [Plavix] 75 mg tablet 75 mg PO DAILY Qty: 90 3RF metoprolol tartrate 25 mg tablet 12.5 mg PO BID Qty: 90 3RF Changed meloxicam 7.5 MG tablet 7.5 mg PO DAILY Qty: 30 0RF Held methotrexate sodium 2.5 mg tablet 20 mg PO QWEEK Hold Instructions: Resume on 10/24/23. Rx Instructions: SUNDAYS Discontinued pantoprazole 40 mg tablet,delayed release (DR/EC) 40 mg PO DAILY Rx Instructions: in AM cephalexin [cephalexin] 500 mg capsule 500 mg PO Q6 Qty: 28 0RF Referrals / Follow Up: Pedro Williamson DO [Primary Care Provider] - Within 1 Week Disposition Disposition (needs filled in before D/C Order can be placed): [facility] Charges/Coding Visit Charges Inpatient E&M: 00559 Disch Hosp >30min
--- NOTE | 2023-10-15 15:51 | CASEMGMT ---
Discharge Planning Discharge orders, signed med list, and transport time sent to [place] via [facility]. Physicians will transport patient by wheelchair at 6:30p. Nursing, SW, and patient updated. Tomasa Johns, Discharge Planning Asst.
--- NOTE | 2023-10-15 17:20 | NURSING ---
report called to nurse Mcdermott at the [facility].
== END 2023-10-15 19:13 | DRG 690 ==
LOC: ED 10:14 → PCU 11:36
PROVIDERS: Emergency Medicine; Admitting Provider Internal Medicine; Emergency Provider Emergency Medicine; PCP Family Medicine; Visit Provider Internal Medicine
DX: N39.0 Urinary tract infection, site not specified (principal); R78.81 Bacteremia; J96.11 Chronic respiratory failure with hypoxia; I50.32 Chronic diastolic (congestive) heart failure; Z16.12 Extended spectrum beta lactamase (ESBL) resistance; L40.50 Arthropathic psoriasis, unspecified; I11.0 Hypertensive heart disease with heart failure; J84.10 Pulmonary fibrosis, unspecified; J20.6 Acute bronchitis due to rhinovirus; E78.00 Pure hypercholesterolemia, unspecified; E83.42 Hypomagnesemia; E87.6 Hypokalemia; I25.10 Atherosclerotic heart disease of native coronary artery without angina pectoris; M51.36 Other intervertebral disc degeneration, lumbar region; I25.2 Old myocardial infarction; B96.20 Unspecified Escherichia coli [E. coli] as the cause of diseases classified elsewhere; Z79.1 Long term (current) use of non-steroidal anti-inflammatories (NSAID); Z11.52 Encounter for screening for COVID-19; Z79.82 Long term (current) use of aspirin; Z79.02 Long term (current) use of antithrombotics/antiplatelets; Z99.81 Dependence on supplemental oxygen; Z87.891 Personal history of nicotine dependence; Z95.5 Presence of coronary angioplasty implant and graft
CPT/HCPCS: 36415; 71045; 80048; 81001; 83605; 83735; 84100; 84484; 85025; 87040; 87077; 87086; 87088; 87186; 87631; 87633; 93005; 94640; 94668; 96365; 97116; 97162; 97166; 97530; 97535; 99252; 99284; 99406; J2185; J7030; J7050; A4216; G0463; J2405; J8610

== ENCOUNTER → 2023-11-07 | Outpatient (CLI) | payer MEDICARE, SELFPAY ==
[2023-11-07 15:27] LABS: Absolute Neutrophil Count 7.2 X10^3/uL (2.0-7.7); Basophil# 0.05 X10^3/uL; Basophil% 0.4 % (0-1); Eosinophil# 0.39 X10^3/uL; Eosinophils% 3.3 % (0-5); Hemoglobin 11.8 g/dL (12.0-15.0); Lymphocyte % 30.2 % (19-41); Mean Corp Hgb Conc 30.3 g/dL (32-36); Mean Corpuscular Hgb 31.4 pg (27.0-32.0); Mean Corpuscular Volume 103.7 fL (81-99); Mean Platelet Vol. 11.8 fl (6.2-12.0); Monocyte# 0.66 X10^3/uL; Monocyte% 5.5 % (0-10); NRBC Flagged by Analyzer 0 % (0-5); Neutrophil # 7.17 X10^3/uL (2.7-7.7); Neutrophil % 60.2 % (47-70); POSITIVE MORPHOLOGY YES; Platelet Count 243 K/mm3 (150-450); RBC Distribution Width CV 14.7 % (11.6-14.6); RBC Distribution Width SD 56.4 fl (35.1-43.9); Red Blood Count 3.76 M/mm3 (4.2-5.4); White Blood Count 11.9 K/mm3 (4.4-11.0)
[2023-11-07 15:37] LABS: Differential Indicated SCAN CRITERIA MET
[2023-11-07 16:05] LABS: ALB/GLOB Ratio 0.8 RATIO (0.9-2.4); AST(SGOT) 15 U/L (15-37); Alanine Aminotransfer ALT/SGPT 18 U/L (13-56); Albumin, Serum 3.2 g/dL (3.2-5.0); Alkaline Phosphatase 78 U/L (45-117); Anion Gap 7 (5-15); BUN 16 mg/dL (7-18); Calcium,Total 9.6 mg/dL (8.5-10.1); Chloride 104 mmol/L (98-107); Creatinine, Serum 0.84 mg/dL (0.55-1.02); EST Glomerular Filtration Rate 71 mL/min (>60); Est Glom Filt Rate - Afr Amer 86 mL/min (>60); Glucose 171 mg/dL (74-106); Potassium 4.1 mmol/L (3.5-5.1); Protein, Total 7.2 g/dL (6.4-8.2); Sodium Level 140 mmol/L (136-145)
[2023-11-07 16:07] LABS: Bacteria 0 SEEN /hpf (None Seen); Mucous, Urine 0 SEEN /hpf (<or=2+)
[2023-11-07 16:12] LABS: Atypical Lymphocyte RARE %; Differential Comment SCANNED
[2023-11-07 17:23] LABS: Color, Urine Yellow (Yellow); Glucose, Dipstick Normal (Normal); Ketone-Dipstick Negative (Negative); Leukocyte Esterase-Dipstick 500 /ul (Negative); Nitrite-Dipstick Positive (Negative); Occult Blood-Urine 150 /ul (Negative); Protein-Dipstick 30 mg/dl (Negative); Specific Gravity, Urine 1.015 (1.002-1.030); Urine Bilirubin Dipstick Negative (Negative); Urine Clarity Sl. Cloudy (Clear); Urine Urobilinogen Normal (Normal)
[2023-11-07 17:41] LABS: Red Blood Cells-Urine 0 SEEN /hpf (0-5); Squamous Epithelial Cells - UA 5-10 SEEN /hpf (5-10); White Blood Cells 25-50 SEEN /hpf (0-5)
== END | disposition home or self-care (01) ==
LOC: BIMLAB 13:21
PROVIDERS: PCP Family Medicine; Referring Provider Physician Assistant; Visit Provider Physician Assistant
DX: R53.1 Weakness (principal); D64.9 Anemia, unspecified; R32 Unspecified urinary incontinence
CPT/HCPCS: 36415; 80053; 81001; 85025; 87086; 87088; 87186

== ENCOUNTER 2023-11-10 19:28 | Emergency (ER) | payer MEDICARE, SELFPAY ==
[2023-11-10 19:29] VITALS: BP 138/77; PULSE 52; RESP 16; TEMP 36.7; O2SAT 100
--- NOTE | 2023-11-10 19:45 | EX.ED.DYSGE1 ---
HPI History of Present Illness Chief Complaint: Abn Labs Detail of Chief Complaint: E. coli in urine Informant: patient Narrative Narrative: Patient presents to the emergency department at the request of her primary care physician. Patient states that the hospital lab called the primary care physician office to alert them that patient had E. coli in her urine on culture. Patient tells me that she had positive blood cultures and urine cultures with E. coli about a month ago and she was admitted to a [facility] so she could have IV antibiotics for a week to treat that E. coli. Patient states she really does not feel that bad. She states that she was seen 3 days ago and had some blood work and a urine culture sent. She is not sure if she had a blood culture this time. She denies fever chills or sweats. She denies back pain. She has had no vomiting. Patient states overall she does not feel bad. [facility] Medical History Abrasion Ambulates with cane Arthritis Atherosclerotic heart disease of [place] coronary artery without angina pectoris Back pain Back problem C. difficile colitis Diastolic heart failure Elevated glucose Gastric reflux GERD (gastroesophageal reflux disease) Hearing difficulty High blood pressure High cholesterol History of diverticulitis History of hiatal hernia History of steroid therapy History of ulceration HTN (hypertension) IBS (irritable bowel syndrome) Low back pain Neuropathy Obesity Osteoarthritis Osteopenia Psoriatic arthritis Smoker Uses wheelchair Walker as ambulation aid Wears glasses Home Medications omega-3 fatty acids-fish oil 340 mg-1,000 mg capsule (Fish Oil) 1,000 mg PO DAILY supplment 11/10/15 [History Last Taken 10/11/23] tizanidine 4 mg tablet 4 mg PO QHS 11/10/15 [History Last Taken 11/16/15 21:30] calcium carbonate 600 mg calcium (1,500 mg) tablet 2,000 mg PO DAILY bone health 11/17/15 [History Last Taken 10/11/23] cholecalciferol (vitamin D3) 25 mcg (1,000 unit) tablet (Vitamin D3) 1,000 unit PO BID supplement 11/17/15 [History Last Taken 10/11/23] folic acid 1 mg tablet 1 mg PO DAILY 04/05/22 [History Last Taken Unknown] melatonin 10 mg capsule 10 mg PO HS PRN Sleep 04/05/22 [History Last Taken 10/10/23] prednisone 5 mg tablet 1 tab PO DAILY 04/30/22 [History Last Taken Unknown] methotrexate sodium 2.5 mg tablet 20 mg PO QWEEK 05/27/23 [History Last Taken Unknown] tenapanor 50 mg tablet (Ibsrela) 50 mg PO DAILY constipation 05/27/23 [History Last Taken Unknown] aspirin 81 mg chewable tablet 81 mg PO DAILY@0800 stent #0 tabs 06/13/23 [Rx Last Taken 10/11/23] buprenorphine 15 mcg/hour weekly transdermal patch 1 patch transdermal Q7D #4 ea 06/13/23 [Rx Last Taken Unknown] miconazole nitrate 2 % topical powder (Desenex) 1 applic topical BID #0 grams 06/13/23 [Rx Last Taken 10/10/23] oxymetazoline 0.05 % nasal spray (Nasal [place] (oxymetazoline)) 2 spray NASAL X1 PRN NASAL CONGESTION #0 mL 06/13/23 [Rx Last Taken 10/10/23] polyethylene glycol 3350 17 gram oral powder packet 17 g PO DAILY #0 ea 06/13/23 [Rx Last Taken 10/10/23] potassium chloride 20 mEq oral packet 20 meq PO DAILY #30 ea 06/13/23 [Rx Last Taken 10/11/23] Bedside commode #1 ea 07/16/23 [Rx Last Taken Unknown] hydrochlorothiazide 25 mg tablet 25 mg PO DAILY #1 TAB 07/28/23 [Rx Last Taken Unknown] atorvastatin 40 mg tablet 40 mg PO QHS #90 tabs 08/04/23 [Rx Last Taken Unknown] clopidogrel 75 mg tablet (Plavix) 75 mg PO DAILY #90 tabs 08/04/23 [Rx Last Taken Unknown] metoprolol tartrate 25 mg tablet 12.5 mg (1/2 x 25 mg) PO BID #90 tabs 08/04/23 [Rx Last Taken Unknown] fluticasone propionate 50 mcg/actuation nasal spray,suspension 2 spray intranasal DAILY #16 grams 09/08/23 [Rx Last Taken Unknown] hydrocodone 10 mg-acetaminophen 325 mg tablet 0.5 tab PO BID Pain 3 days #6 tabs 10/15/23 [Rx Last Taken Unknown] ipratropium 0.5 mg-albuterol 3 mg (2.5 mg base)/3 mL nebulization soln 3 ml inhalation Q6HWA.RT #0 mL 10/15/23 [Rx Last Taken Unknown] meloxicam 7.5 mg tablet 7.5 mg PO DAILY pain #30 tabs 10/15/23 [Rx Last Taken Unknown] sodium chloride 0.65 % nasal spray aerosol ([place] Nasal) 2 spray NASAL TID PRN PRN NASAL DRYNESS #0 mL 10/15/23 [Rx Last Taken Unknown] nebulizers #1 ea 11/03/23 [Rx Last Taken Unknown] dextromethorphan-guaifenesin 30 mg-600 mg tablet extended [id number] hr (Mucinex DM) 2 tab PO BID PRN cough 11/10/23 [History Last Taken Unknown] nitrofurantoin monohydrate/macrocrystals 100 mg capsule 100 mg PO Q12 #14 CAPSULES 11/10/23 [Rx Last Taken Unknown] pantoprazole 40 mg tablet,delayed release 40 mg PO DAILY 11/10/23 [History Last Taken Unknown] Allergy/AdvReac Type Severity Reaction Status Date / Time duloxetine [From Cymbalta] Allergy Intermediate Swelling Verified 11/10/23 19:30 erythromycin base Allergy Nausea/Vom/ Verified 11/10/23 19:30 Diarrhea pregabalin [From Lyrica] Allergy Swelling Verified 11/10/23 19:30 Family History Mother Diabetes Arthritis Heart disease CVA (cerebral vascular accident) Hypertension History of blood transfusion Father Pancreatic cancer Alcoholism Peptic ulcer disease Son Seizures Suicide attempt Surgical History H/O laminectomy History of appendectomy History of appendectomy History of breast biopsy History of colonoscopy (05/01/02) History of foot surgery History of spinal surgery Stented coronary artery (06/03/23) Social History Smoking Status: Former smoker how long ago did patient quit smoking: about 2 months ago alcohol intake: never substance use type: does not use what type of physical activity do you participate in: none seatbelt use: always do you feel safe at home: Yes ROS ROS ED ROS Narrative E. coli in urine culture Review of Systems ROS Unobtainable: other Constitutional Constitutional ED: Reports lethargy; Denies chills, fever(s), sweats or weight loss Eyes Eyes: Denies blurry vision, change in vision or diplopia ENT ENT ED: Denies rhinorrhea or sore throat Cardiovascular Cardiovascular: Denies chest pain, orthopnea or racing heartbeat Respiratory/Chest Respiratory/Chest: Denies cough, dyspnea, dyspnea on exertion, orthopnea or sputum Gastrointestinal Gastrointestinal: Denies abdominal pain, diarrhea, nausea or vomiting Genitourinary Genitourinary ED: Denies dysuria, hematuria or urinary frequency Musculoskeletal Musculoskeletal: Denies arthralgias, back pain, myalgias or neck pain Integumentary Denies abscess, Abrasions or rash Neurologic Neurologic: Denies headache(s) or weakness Psychiatric Psychiatric: Denies anxiety, depression or suicidal thoughts Endocrine Endocrinology: Denies polydipsia, polyphagia or polyuria Hematologic/Lymphatic Hematologic/Lymphatic: Denies easy bleeding, easy bruising or lymphadenopathy Allergic/Immunologic Allergic/Immunologic ED: Denies mouth swelling, tongue swelling or urticaria EXAM Physical Exam Const Vital Signs: 11/10/23 19:29 Temperature 98.1 F Temperature Source Temporal Pulse Rate 52 L Respiratory Rate 16 Blood Pressure 138/77 H Blood Pressure Mean 97 Pulse Ox 100 Oxygen Delivery Method Room Air Positive well nourished and well developed General Appearance ED: well developed and NAD HEENT Reports TM's clear and moist mucous membranes normocephalic and atraumatic; Negative for trauma or tenderness Tympanic Membrane ED: Yes TM's clear Eyes PERRL and EOMs intact bilaterally General Eye ED: Negative for pale conjunctiva or scleral icterus Neck no lymphadenopathy, supple and no JVD General: Negative for tenderness Chest Wall inspection of chest normal and palpation of chest normal Chest: Negative for tenderness Resp normal respiratory effort and clear to auscultation bilaterally Effort and Inspection: Negative for respiratory distress or pain with movement Auscultation: Negative for rhonchi, wheezes or diminished lung sounds Cardio regular rate, regular rhythm, S1 normal heart sound, S2 normal heart sound and no murmurs Peripheral Pulses: pulses 2+ throughout GI normal to inspection, nondistended, normoactive bowel sounds, soft to palpation, non-tender, non-distended and no masses Back/Spine no CVA tenderness and no thoracic nor lumbar tenderness Extremity normal to inspection General Extremety ED: Negative for edema General Extremity: Negative for edema Neuro oriented x3, CN's II-XII intact bilaterally, no sensory deficits noted and gait normal Sensorium / Orientation: awake, alert, oriented to person, oriented to place and oriented to time Motor Exam: strength 5/5 throughout and strength abnormal Psych mental status grossly normal Skin no rashes or lesions noted and no wounds MDM MDM MDM Narrative Medical decision making narrative: Patient presents to the emergency department with concern for ESBL E. coli in the urine. Patient minimally symptomatic. She was treated last month for same with bacteria. Clinically she looks well. IV line established. CBC with differential obtained showed white count 13.3 with hemoglobin 11.9 and platelet count of 244. Chemistries unremarkable. Lactate normal at 1.4. I did send off blood cultures and ordered a urinalysis which will be pending. I discussed case with infectious disease physician Dr. Peñaloza who initially saw patient last month. He recommended starting patient on nitrofurantoin and outpatient follow-up as clinically she looks well and she does not appear septic. Patient is comfortable with this plan. She is advised to return if fever, chills, sweats, or condition should worsen anyway. Lab Data Attestation: I reviewed the patient's lab results. Labs: Laboratory Results - last 24 hr 11/10/23 20:00 WBC 13.3 H RBC 3.79 L Hgb 11.9 L Hct 38.5 MCV 101.6 H MCH 31.4 MCHC 30.9 L RDW Std Deviation 54.6 H RDW Coeff of Sonya 14.6 Plt Count 244 MPV 11.0 Immature Gran % (Auto) 0.300 Neut % (Auto) 48.0 Lymph % (Auto) 41.4 H [place] % (Auto) 6.8 Eos % (Auto) 3.0 Baso % (Auto) 0.5 Absolute Neuts (auto) 6.4 Absolute Lymphs (auto) 5.50 H Nucleated RBC % 0 Differential Comment Sodium 141 Potassium 4.5 Chloride 104 Carbon Dioxide 32.0 Anion Gap 5 BUN 24 H Creatinine 1.02 Estim Creat Clear Calc 55.99 Est GFR (MDRD) Af Amer 69 Est GFR (MDRD) Non-Af 57 L BUN/Creatinine Ratio 23.5 H Glucose 198 H Lactic Acid 1.4 Calcium 9.5 Discharge Plan Triage Chief Complaint: Abn Labs ED Provider: Ungur,Remus Dx/Rx/DC Orders Clinical Impression: Acute UTI Instructions: ED Cystitis Female Adult Prescriptions: New nitrofurantoin monohyd/m-cryst [nitrofurantoin monohyd/m-cryst] 100 mg capsule 100 mg PO Q12 Qty: 14 0RF No Action melatonin 10 mg capsule 10 mg PO HS PRN (Reason: Sleep) folic acid 1 mg tablet 1 mg PO DAILY methotrexate sodium 2.5 mg tablet 20 mg PO QWEEK Hold Instructions: Resume on 10/24/23. Rx Instructions: SUNDAYS Ibsrela 50 mg tablet 50 mg PO DAILY Rx Instructions: must administer immediately before first meal of day/breakfast fluticasone propionate 50 mcg/actuation spray,suspension 2 spray intranasal DAILY Qty: 16 3RF tizanidine 4 MG tablet 4 mg PO QHS 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 Fish Oil 1 EACH capsule 1,000 mg PO DAILY Patient Comments: SUPPLEMENT calcium carbonate 600 MG tablet 2,000 mg PO DAILY Patient Comments: CALCIUM SUPPLEMENT cholecalciferol (vitamin D3) [Vitamin D3] 1,000 UNIT tablet 1,000 unit PO BID Patient Comments: VIT D SUPPLEMENT prednisone 5 mg tablet 1 tab PO DAILY Hold Instructions: Resume on 06/23/23. ipratropium-albuterol 0.5 mg-3 mg(2.5 mg base)/3 mL Solution For Nebulization 3 ml inhalation Q6HWA.RT Qty: 0 0RF [place] Nasal 0.65 % Aerosol,[place] 2 spray NASAL TID PRN PRN (Reason: NASAL DRYNESS) Qty: 0 0RF hydrocodone-acetaminophen 10-325 mg tablet 0.5 tab PO BID 3 Days Qty: 6 0RF meloxicam 7.5 MG tablet 7.5 mg PO DAILY Qty: 30 0RF pantoprazole 40 mg tablet,delayed release (DR/EC) 40 mg PO DAILY Patient Comments: take 1 tablet by mouth every morning Mucinex DM 30-600 mg Tablet Extended Release 12 Hr 2 tab PO BID PRN (Reason: cough) polyethylene glycol 3350 17 gram Powder In Packet 17 g PO DAILY Qty: 0 0RF oxymetazoline [Nasal [place] (oxymetazoline)] 0.05 % [place],Non-Aerosol 2 spray NASAL X1 PRN (Reason: NASAL CONGESTION) Qty: 0 0RF miconazole nitrate [Desenex] 2 % Powder 1 applic topical BID Qty: 0 0RF Protocol: *Topical Application Instructions APPLICATION INSTRUCTIONS: APPLY TO GROIN AND FOLDS aspirin 81 mg Tablet,Chewable 81 mg PO DAILY@0800 Qty: 0 0RF potassium chloride 20 mEq packet 20 meq PO DAILY Qty: 30 0RF buprenorphine 15 mcg/hour patch weekly 1 patch transdermal Q7D Qty: 4 0RF Rx Instructions: will need new patch on the . (DME) Bedside commode See Rx Instructions .Route .MEDSUPPLY Qty: 1 0RF Rx Instructions: As directed hydrochlorothiazide 25 mg tablet 25 mg PO DAILY Qty: 1 0RF atorvastatin 40 mg tablet 40 mg PO QHS Qty: 90 3RF clopidogrel [Plavix] 75 mg tablet 75 mg PO DAILY Qty: 90 3RF metoprolol tartrate 25 mg tablet 12.5 mg PO BID Qty: 90 3RF (DME) nebulizers Misc See Rx Instructions .Route Qty: 1 0RF Rx Instructions: Nebulizer machine to be used as directed. Primary Care Provider: Pedro Williamson Referrals: Pedro Williamson, [Primary Care Provider] - 3-5 Days Disposition Disposition: Home, Self Care
[2023-11-10 20:04] VITALS: BMI 36.2
[2023-11-10 20:14] LABS: Absolute Neutrophil Count 6.4 X10^3/uL (2.0-7.7); Basophil# 0.06 X10^3/uL; Basophil% 0.5 % (0-1); Hematocrit 38.5 % (37-47); Hemoglobin 11.9 g/dL (12.0-15.0); Lymphocyte % 41.4 % (19-41); Mean Corp Hgb Conc 30.9 g/dL (32-36); Mean Corpuscular Hgb 31.4 pg (27.0-32.0); Mean Corpuscular Volume 101.6 fL (81-99); Monocyte% 6.8 % (0-10); NRBC Flagged by Analyzer 0 % (0-5); Neutrophil # 6.38 X10^3/uL (2.7-7.7); POSITIVE DIFFERENTIAL YES; Platelet Count 244 K/mm3 (150-450); RBC Distribution Width CV 14.6 % (11.6-14.6); RBC Distribution Width SD 54.6 fl (35.1-43.9); Red Blood Count 3.79 M/mm3 (4.2-5.4); White Blood Count 13.3 K/mm3 (4.4-11.0)
[2023-11-10 20:24] LABS: Differential Indicated SCAN CRITERIA MET
[2023-11-10 20:27] LABS: Anion Gap 5 (5-15); BUN 24 mg/dL (7-18); BUN/Creat Ratio 23.5 RATIO (10-20); Calcium,Total 9.5 mg/dL (8.5-10.1); Chloride 104 mmol/L (98-107); Creatinine, Serum 1.02 mg/dL (0.55-1.02); EST Glomerular Filtration Rate 57 mL/min (>60); Est Glom Filt Rate - Afr Amer 69 mL/min (>60); Estimated Creatinine Clearance 55.99 ml/min; Glucose 198 mg/dL (74-106); Potassium 4.5 mmol/L (3.5-5.1); Sodium Level 141 mmol/L (136-145)
[2023-11-10 20:35] LABS: Lactic Acid 1.4 mmol/L (0.4-1.9)
--- OUTSIDE RECORDS SUMMARY | 2023-11-10 20:43 | XMS RPT_ITS | CCD ---
Author Name Unknown Address [address] [place] [address] Organization [facility] Care Team Providers Care Fundraising Consultant Name Role Phone Ira Rajput Primary Care Provider [phone] RIAN LECHUGA Attending Unavailable RIAN LECHUGA Primary Care Unavailable RIAN LECHUGA Admitting Unavailable Ira Rajput DO Primary Care Provider Sandeep BETANCUR Iradanielle Zambrano Primary Care Provid er Sandeep BETANCUR Zap Juan Manuel Primary Care Provid er Sandeep BETANCUR Zap Juan Manuel Primary Care Provid er RENETTA RAJPUTLAND JUAN MANUEL Primary Care Scarlet RAJPUT [facility][NOTE 3]ARD Primary Care Scarlet RAJPUT YUMA JUAN MANUEL Attending Scarlet RAJPUT [facility][NOTE 3]ARD Primary Care Scarlet RAJPUT YUMA JUAN MANUEL Primary Care WALESKA Finley Referring [...] DULoxetine; Translations: [DULOXETINE] Drug Allergy 08-27-[address] [facility] (18 sources) rofecoxib; Translations: [ROFECOXIB] Drug Allergy 11-13-2016 [facility] Medications Current Medications Medication Drug Class(es) Dates Sig (Normalized) Sig (Original) acetaminophen 500 mg oral tablet (2 sources) Start: 11-26-2019 End: 11-26-2019 acetaminophen (TYLENOL) tablet 1,000 mg Agsjhdg-Kzhsequcf-Xwz ortega D (CALCIUM 1200+D3 PO) (3 sources) [...] 17:50-0400 Body temperature 97.59 [degF] Waleska David APRN.[employer]LL W[employer] MAKER Work Phone: [facility] 04-15-2023 17:50-0400 Body weight 101.61 kg Waleska David APRN.DOLL W[employer] MAKER Work Phone: [facility] 04-15-2023 17:50-0400 Diastolic blood pressure 76 mm[Hg] Waleska David APRN.DOLL W[employer] MAKER Work Phone: [facility] 04-15-2023 17:50-0400 Heart rate 98 /min Waleska David DISTILLERY LABORER.DOLL WIG MAKER Work Phone: [facility] 04-15-2023 17:50-0400 Respiratory rate 18 /min Waleska David APRN.DOLL W[employer] MAKER Work Phone: [facility] 04-15-2023 17:50-0400 SaO2% (BldA) [Mass fraction] 95 % Waleska David DISTILLERY LABORER.DOLL WIG MAKER Work Phone: [facility] 04-15-2023 17:50-0400 Systolic blood pressure 144 mm[Hg] Waleska David APRN.DOLL W[employer] MAKER Work Phone: [facility] 04-18-2022 14:40-0400 Body height 162.6 cm Ira Sandeep DO Work Phone: [facility] 04-18-2022 14:40-0400 Body temperature 98.01 [degF] Zap Sandeep DO Work Phone: [facility] 04-18-2022 14:40-0400 Body weight 98.43 kg Ira Sandeep DO Work Phone: [facility] 04-18-2022 14:40-0400 Diastolic blood pressure 80 mm[Hg] Ira Sandeep DO Work Phone: [facility] 04-18-2022 14:40-0400 Heart rate 101 /min Ira Sandeep DO Work Phone: [facility] 04-18-2022 14:40-0400 SaO2% (BldA) [Mass fraction] 96 % Zap Sandeep DO Work Phone: [facility] 04-18-2022 14:40-0400 Systolic blood pressure 120 mm[Hg] Ira Sandeep DO Work Phone: [facility] 11-29-2019 10:05-0500 Body Temperature 97.59 [degF] Vic [place], [place] 11-29-2019 10:05-0500 BP Diastolic 85 mm[Hg] Vic [facility] [place] 11-29-2019 10:05-0500 BP Systolic 150 mm[Hg] Vic [facility] [place] 11-29-2019 10:05-0500 Pulse (Heart Rate) 87 /min Vic [facility] [place] 11-29-2019 10:05-0500 Pulse Oximetry 96 % Vic [facility] [place] 11-29-2019 10:05-0500 Respiratory Rate 16 /min [facility] [employer], [place] 11-26-2019 09:25-0500 BMI (Body Mass Index) 39.55 kg/m2 Vic Brown [facility], [place] 11-26-2019 09:25-0500 Body weight 106.14 kg Vic [facility] Stephanie [facility] , [place] 11-26-2019 09:25-0500 Height 163.8 cm Vic Brown [facility] , [place] 11-19-2019 14:28-0500 Body Temperature 97.39 [degF] [facility] [place] 11-19-2019 14:28-0500 BP Diastolic 77 mm[Hg] [facility] [place] 11-19-2019 14:28-0500 BP Systolic 142 mm[Hg] [facility] [place] [facility] [place] 11-19-2019 14:28-0500 Pulse (Heart Rate) 97 /min Vic Brown [facility], [place] 11-19-2019 14:28-0500 Pulse Oximetry 100 % [facility] [place] 11-19-2019 14:01-0500 BMI (Body Mass Index) 39.82 kg/m2 Vic Brown [facility], [place] 11-19-2019 14:01-0500 Body weight 105.23 kg [facility] [place] [facility] [place] 11-19-2019 14:01-0500 Height 162.6 cm [facility] [place] 11-19-2019 14:01-0500 Respiratory Rate 16 /min Vic Brown [place], [place] Encounters Encounter Date Encounter Type Care Provider Facility Start: 08-03-2023 Refill Zap Lyric Rajput DO Work Phone: [facility] [place] Procedures Date Procedure Procedure Detail Performing Clinician Start: 04-16-2023 Dup-scan xtr veins unilateral/limited study Waleska David APRN.DOLL W[employer] MAKER Work Phone: Start: 04-18-2022 Adult depression scr eening assessment [facility] DO Work Phone: Start: 10-29-2021 Lipid 1996 panel - S sofia or Plasma [facility] DO Work Phone: Start: 05-10-2021 Mammography Zap O liverio DO Work Phone: Start: 10-20-2020 Adult depression scr eening assessment Zap Sandeep DO Work Phone: Start: 11-28-2019 BASIC METABOLIC PANE L W/ REFLEX TO MG FOR LOW K Magydiandra Tuttle Work Phone: Start: 11-27-2019 Blood count complete auto&auto difrntl wbc Magy Tuttle Work Phone: Start: 11-26-2019 OPERATIVE REPORT 3m Sca nning Start: 11-19-2019 Ecg routine ecg w/le ast 12 lds w/i&r [facility]en [facility] [employer] Work Phone: Start: 11-19-2019 ADD ON LAB TEST Justen miner [employer] Work Phone: Start: 11-19-2019 Basic metabolic pane l calcium total [facility] [employer] Work Phone: Start: 11-19-2019 Blood count complete automated Justen Dg [employer] Work Phone: Start: 11-19-2019 Blood typing serologic abo Justen Dg [employer] Work Phone: Start: 11-19-2019 Hemoglobin glycosyla gilberto a1c Justen Dg [employer] Work Phone: Plan of Treatment Date Care Activity Detail Author Start: 10-29-2026 Lipid 1996 panel - S sofia or Plasma Lipid Screening [facility] Start: 10-29-2026 [address]ID SCREEN [facility] Start: 04-29-2026 Diabetes Screening Diabetes Screenin g [facility] Start: 10-07-2025 DIABETES SCREEN DIABETES SCREEN [facility] Start: 10-29-2024 DIABETES SCREEN DIABETES SCREEN [facility] Start: 10-07-2023 ANNUAL PCP TEAM AUTOMATIC CLIPPER PREETHI DISEASE VISIT ANNUAL PCP TEAM CHRONIC DISEASE VISIT [facility] Start: 05-30-2023 Covid-19 Vaccine () Covid-19 Vaccine () [facility] Start: 05-30-2023 Influenza vaccination [facility] Start: 04-18-2023 Adult depression scr eening assessment DEPRESSION SCREENING [facility] Start: 04-18-2023 ANNUAL PCP TEAM AUTOMATIC CLIPPER PREETHI DISEASE VISIT ANNUAL PCP TEAM CHRONIC DISEASE VISIT [facility] Start: 10-19-2022 ANNUAL PCP TEAM AUTOMATIC CLIPPER PREETHI DISEASE VISIT ANNUAL PCP TEAM CHRONIC DISEASE VISIT [facility] Start: 10-19-2022 BP CONTROLLED (<130/80) BP CONTROLLE D (<130/80) [facility] Start: 09-29-2022 ADVANCE DIRECTIVE DISCUSSION ADVANCE DIRECTIVE DISCUSSION [facility] Start: 09-29-2022 DEPRESSION ASSESSMENT DEPRESSION ASS ESSMENT [facility] Start: 05-30-2022 Influenza vaccination INFLUENZA (#1) [facility] Start: 05-10-[address] [facility] Start: 04-25-2022 COVID-19 VACCINE (5 - Booster for Pfizer series) COVID-19 VACCINE (5 - Booster for Pfizer series) [facility] Start: 04-19-[address]ONE [address] [facility] Immunizations Immunization Date Immunization Notes Care Provider Cydney orozco 10-08-2022 influenza virus vaccine, unspecified formulation Zap Sandeep DO Work Phone: [facility] 10-11-2021 influenza, high dose seasonal, preservative-free Ira Sandeep DO Work Phone: [facility] 10-11-2021 Influenza, injectabl e, Madin Francisca Canine Kidney, preservative free, quadrivalent Ira Sandeep DO Work Phone: [facility] 11-29-2019 influenza, injectabl e, quadrivalent, preservative free Vic Keaton [facility] 11-29-2019 influenza quadrivale nt split vaccine (FLUZONE;FLUARIX;FLULAV AL;AFLURIA) injection 0.5 mL [place], [place] 11-15-2015 pneumococcal conjuga te vaccine, 13 valent Zap Sandeep DO Work Phone: [facility] 09-06-2015 influenza, seasonal, injectable Ira Sandeep DO Work Phone: [facility] 09-06-2015 influenza, seasonal, injectable, preservative free Zap Sandeep DO Work Phone: [facility] 07-29-2015 influenza, seasonal, injectable, preservative free Zap Sandeep DO Work Phone: [facility] 11-29-2014 poliovirus vaccine, inactivated Zap Sandeep DO Work Phone: [facility] Payers Date Payer Category Payer Medicare UHC MEDICARE UHC MEDICARE ADVANTAGE O [id number] 2021-Present [phone] [address] [address] [place] [address] O [id number] 2021 Medicare [id number] 2021 Unknown [id number] 2016 Medicare MEDICARE MEDICAR E PART A AND B xxxxxxxxxxx 2016-Present [phone] [place] [address] xxxxxxxxxxx [id number] 2016 Medicare MEDICARE MEDICAR E A AND B [id number] 2016-20[address] [place] [address] Medicare [id number] 1959 Medicare [id number] 1950 Unknown [id number] Social History Date Type Detail Facility Start: 10-14-2019 End: 11-19-2019 Tobacco smoking status NHIS Current some day smoker [facility] Work Phone: History of tobacco use Cigarette Smoker [facility] Work Phone: Start: 11-19-2019 End: 10-13-2022 Cigarettes smoked current (pack per day) - Reported [facility] Start: 10-14-2019 End: 11-19-2019 Alcohol intake [facility] Start: 10-14-2019 History SDOH Alcohol Frequency 2 [employer] Work Phone: Start: 10-14-2019 Alcohol Comment once every 2-3 yrs [facility] [employer] [facility] Work Phone: Start: 1950 Sex Assigned At Not on file [facility] Work Phone: Start: 11-13-2016 End: 10-07-2022 Tobacco smoking status NHIS Smokes tobacco daily [facility] Work Phone: Start: 11-13-2016 End: 10-07-2022 Tobacco use and exposure Smokeless tobacco non-user [facility] Work Phone: Start: 10-20-2020 End: 04-15-2023 Alcohol intake Current non-drinker of alcohol (finding) [facility] Start: 11-13-2016 Tobacco Comment 5 cigs per day [facility] Start: 09-29-2021 End: 04-18-2022 Exposure to SARS-CoV-2 (event) Not sure [facility] Start: 04-18-2022 End: 10-07-2022 Tobacco Comment 1-[address] [facility] Start: 10-13-2022 End: 04-15-[address] [facility] Adult Depression Screening Assessment [address] [facility] Start: 2021 Gender identity Identifies as female gender (finding) [facility] Start: 2021 Sexual orientation Heterosexual (fin ding) [facility] Medical Equipment Procedure Code Equipment Code Equipment Origin al Text Equipment Identifier Dates Graft Infuse 18m m Large Ii Bovine Collagen Rhbmp-2 26mm Bone Absorbable - [id number] Start: 11-21-2016 Clinical Notes 10-08-2021 to [...] note to pharmacy documented in this encounter [facility] 04-15-2023 Note HNO ID: [id number] Author: Waleska David APRN.MAI Service: ? Author [...] Take 8.6 mg by mouth twice daily. [place]-3 Fatty Acids-Vitamin E 1,000 mg cap Take [...] US DVT LOWER LEFT Waleska David APRN.MAI [facility] 04-15-2023 History of Present illness Narrative [...] Take 8.6 mg by mouth twice daily. [place]-3 Fatty Acids-Vitamin E 1,000 mg cap Take [...] - US DVT LOWER LEFT Waleska David APRN.DOLL WIG MAKER documented in this encounter [facility] 03-25-2023 Miscellaneous Notes Pharmacy faxed requesting the following refill Refill(s) Requested: Requested Prescriptions Pending Prescriptions Disp Refills lansoprazole (PREVACID) 30 mg capsule [Pharmacy Med Name: LANSOPRAZOLE DR 30 MG CAPSULE] 90 capsule 0 Sig: take 1 capsule by mouth once daily ALLERGIES Allergen Reactions Vioxx [Rofecoxib] Swelling Pregabalin Unknown, Swelling Other reaction(s): leg swelling Duloxetine Vomiting Other reaction(s): vomiting Erythromycin Unknown (home) [phone] (cell) Last Office Visit Date: 10/07/2022 Last [facility] Visit: Visit date not found Future Appointment: Visit date not found The patients preferred pharmacy has been captured for this encounter? yes Request is for script(s) to be escript to pharmacy. Marilu Barnes LPN documented in this encounter [facility] 01-22-2023 Miscellaneous Notes Call pharm for refills documented in this encounter [facility] 01-21-2023 Miscellaneous Notes Patient MyChart message requesting the following refill Refill(s) Requested: Requested Prescriptions Pending Prescriptions Disp Refills fluconazole (DIFLUCAN) 150 mg tablet 3 tablet 0 Sig: Take 1 tablet by mouth once daily. ALLERGIES Allergen Reactions Vioxx [Rofecoxib] Swelling Pregabalin Unknown, Swelling Other reaction(s): leg swelling Duloxetine Vomiting Other reaction(s): vomiting Erythromycin Unknown (home) [phone] (cell) Last Office Visit Date: 10/07/2022 [facility] Visit: Visit date not found Future Appointment: Visit date not found The patients preferred pharmacy has been captured for this encounter? yes Request is for script(s) to be escript to pharmacy. Marilu aBrnes LPN documented in this encounter [facility] 12-25-2022 Miscellaneous Notes Pharmacy faxed requesting the following refill Refill(s) Requested: Requested Prescriptions Pending Prescriptions Disp Refills hydroCHLOROthiazide 25 mg tablet [Pharmacy Med Name: HYDROCHLOROTHIAZIDE 25 MG TAB] 90 tablet 1 Sig: take 1 tablet by mouth once daily ALLERGIES Allergen Reactions Vioxx [Rofecoxib] Swelling Pregabalin Unknown, Swelling Other reaction(s): leg swelling Duloxetine Vomiting Other reaction(s): vomiting Erythromycin Unknown (home) [phone] (cell) Last Office Visit Date: 10/07/2022 Last [facility] Visit: Visit date not found Future Appointment: Visit date not found The patients preferred pharmacy has been captured for this encounter? yes Request is for script(s) to be escript to pharmacy. Ofelia Hodge LPN documented in this encounter [facility] 12-24-2022 Miscellaneous Notes Pharmacy faxed requesting the following refill Refill(s) Requested: Requested Prescriptions Pending Prescriptions Disp Refills lansoprazole (PREVACID) 30 mg capsule [Pharmacy Med Name: LANSOPRAZOLE DR 30 MG CAPSULE] 90 capsule 0 Sig: take 1 capsule by mouth once daily ALLERGIES Allergen Reactions Vioxx [Rofecoxib] Swelling Pregabalin Unknown, Swelling Other reaction(s): leg swelling Duloxetine Vomiting Other reaction(s): vomiting Erythromycin Unknown (home) [phone] (cell) Last Office Visit Date: 10/07/2022 Last [facility] Visit: Visit date not found Future Appointment: Visit date not found The patients preferred pharmacy has been captured for this encounter? yes Request is for script(s) to be escript to pharmacy. Marilu Barnes LPN documented in this encounter [facility] 10-07-2022 Note HNO ID: [id number] Author: Ira Rajput DO Service: ? Author Type: Physician Type: Progress Notes Filed: 10/13/2022 12:52 PM Note Text: [facility] [place] Raj[place] DO [address] [place] [address] Date of Evaluation: 10/07/2022 Patient Name: Lucrecia Roberto : 1950 Chief Complaint: Patient presents with: 6 Month Exam Hypertension frequent yeast infections Nursing Intake: There are no exam notes on file for this visit. Subjective Ms. Roberto is a 72 year old female who presents with the following complaint(s): The history is provided by the patient. No staff interpreter was used. Hypertension This is a chronic [...] Take 8.6 mg by mouth twice daily. [place]-3 Fatty Acids-Vitamin E 1,000 mg cap Take [...] spray into e (more content not included)... [facility] 09-25-2022 Miscellaneous Notes Scheduled Pt for 10/07/21 [...] Vomiting Other reaction(s): vomiting Erythromycin Unknown (home) [phone] (cell) Last Office Visit Date: 04/18/2022 Last [facility] Visit: Visit date not found Future Appointment: Visit date not found The patients preferred pharmacy has been captured for this encounter? yes Request is for script(s) to be escript to pharmacy. Ofelia Hodge LPN documented in this encounter [facility] 04-18-2022 History of Present illness Narrative Images from the original note were not included. [facility] [address] [place] [address] Date of Evaluation: 04/18/2022 Patient Name: Lucrecia [...] by mouth every 6 hours as needed. [place]-3 Fatty Acids-Vitamin E (FISH OIL) 1,000 mg [...] 2022 3:05 PM. documented in this encounter [facility] 01-03-2022 Miscellaneous Notes Pharmacy faxed requesting the following refill Refill(s) Requested: Pending Prescriptions Disp Refills HYDROCHLOROTHIAZIDE 25 MG TABLET 90 tablet 3 Sig: take 1 tablet by mouth once daily LUZ: Yes ALLERGIES Allergen Reactions Vioxx [Rofecoxib] Swelling Pregabalin Unknown, Swelling Other reaction(s): leg swelling Duloxetine Vomiting Other reaction(s): vomiting Erythromycin Unknown (home) [phone] (cell) Last Office Visit Date: 10/19/2021 Last [facility] Visit: Visit date not found Future Appointment: 04/18/2022 The patients preferred pharmacy has been captured for this encounter? yes Request is for script(s) to be escript to pharmacy. Cathi Nolen LPN documented in this encounter [facility] 01-02-2022 Miscellaneous Notes Patient updated. Script sent diverticulitis documented in this encounter [facility] 10-08-2021 Miscellaneous Notes Pharmacy faxed requesting the [...] Vomiting Other reaction(s): vomiting Erythromycin Unknown (home) [phone] (cell) Last Office Visit Date: 04/19/2021 Last [facility] Visit: Visit date not found Future Appointment: 10/19/2021 The patients preferred pharmacy has been captured for this encounter? yes Request is for script(s) to be escript to pharmacy. Ofelia Hodge LPN documented in this encounter [facility] documented in this encounter [facility] Work Phone: Evaluation note* Diagnosis Gastroesophageal reflux disease, unspecified whether esophagitis present Essential hypertension Unspecified essential hypertension documented in this encounter [facility] note* Diagnosis Essential hypertension Unspecified essential hypertension documented in this encounter [facility] note* Diagnosis Primary hypertension- Primary Unspecified essential hypertension Gastroesophageal reflux disease without esophagitis Esophageal reflux Psoriasis Other psoriasis Seasonal allergies Allergic rhinitis, cause unspecified documented in this encounter [facility] note* Diagnosis Gastroesophageal reflux disease, unspecified whether esophagitis present documented in this encounter [facility] note* Diagnosis Gastroesophageal reflux disease, unspecified whether esophagitis present documented in this encounter [facility] note* Diagnosis Essential hypertension Unspecified essential hypertension documented in this encounter [facility] note* Diagnosis Vaginal yeast infection Candidiasis of vulva and vagina documented in this encounter [facility] note* Diagnosis Leg swelling- Primary Swelling of limb documented in this encounter [facility] note* Diagnosis Leg swelling Swelling of limb documented in this encounter [facility] note* Diagnosis Gastroesophageal reflux disease, unspecified whether esophagitis present documented in this encounter [facility] for referral (narrative)* Diagnostic Procedure Only (Urgent) - Pending Review Specialty Diagnoses / Procedures Referred By Alvarez lord Referred To Contact US IMAGING Diagnoses Leg swelling Procedures US DVT LOWER LEFT DUP-SCAN XTR VEINS UNILATERAL/LIMITED STUDY Waleska David APRN.[employer] [address] [place] [address] Us Imaging Referral ID Status Reason Start Date Expiration Date Visits Requested Visits Authorized [id number] Pending Review Auto-Generat ed Referral 04/15/2023 05/14/2024 1 1 [facility] for referral (narrative)* Diagnostic Procedure Only (Urgent) - Closed Specialty Diagnoses / Procedures Referred By Contac t Referred To Contact US IMAGING Diagnoses Leg swelling Procedures US DVT LOWER LEFT DUP-SCAN XTR VEINS UNILATERAL/LIMITED STUDY Waleska David APRN.[employer] [address] [place] [address] Us Imaging Referral ID Status Reason Start Date Expiration Date V isits Requested Visits Authorized [id number] Closed Auto-Generate d Referral 04/15/2023 05/14/2024 1 1 [facility] for visit Narrative* Diagnostic Procedure Only (Urgent) - Closed Specialty Diagnoses / Procedures Referred By Contac t Referred To Contact US IMAGING Diagnoses Leg swelling Procedures US DVT LOWER LEFT DUP-SCAN XTR VEINS UNILATERAL/LIMITED STUDY Waleska David APRN.[employer] [address] [place] [address] Us Imaging Referral ID Status Reason Start Date Expiration Date V isits Requested Visits Authorized [id number] Closed Auto-Generate d Referral 04/15/2023 05/14/[address] [facility] Discharge Instructions * Instructions* Radha Khan RN [...] Your home care will be provided by: [facility] [phone] * Additional Instructions* Gualberto Foley PA-C - [...] Documents on File Type Date Recorded Patient Well Shooter Expl anation Advance Directives and Living Will Power of Payer Specialist Latest Code Status on File Code Status Date Activated Date Inactivated Comments Full Code 11/26/2019 3:15 PM Full Code 11/26/2019 9:21 AM 11/26/2019 3:01 PM Documents on File Type Date Recorded Patient Well Shooter Expl anation Advance Directives and Living Will Power of Payer Specialist Summary Purpose Family History No Family History [...] PACU in stable condition and then to [facility]. They received 24 hours of prophylactic [...] d/c to home today. * Trang Hair, DISTILLERY LABORER - DOLL WIG MAKER - 11/28/2019 1:07 PM EST 11/28/2019 Referring [...] GERD (gastroesophageal reflux disease) High blood pressure [place] (hard of hearing) BOTH EARS AND NO [...] Problem List Diagnosis Spondylolisthesis of lumbar region FIXED INCOME DIRECTOR: None Pain Management Adjuvants: Acetaminophen 1,000 mg Lidoderm patch Tizanidine Hydromorphone PRN- 1 mg used 11/26 Oxycodone PRN - 40 mg used Assessment: 1. Acute pain s/p L5 decompression and fusion. 2. Chronic pain 3. Opioid Tolerant/Dependent- prescribed [place] [facility] Plan: -Acetaminophen 1,000 mg TID [...] Acute Pain Service is available by pager #[phone] Friday-Friday [phone]. For questions oracute issues after hours, please contact hospital stitcher set up operator automatic for name and pager number of the Pain ManagementProvider INSPECTOR AND SORTER. [facility] has agreed to see our patients after they are discharged. Patients should be instructed to call [phone]. Please ask patient to sign a medical release andsend medical records to [facility].They will contact the patient with an appointment time. * Robyn Wagner DTR - 11/28/2019 12:01 PM EST Nutrition rescreen completed. Chart reviewed. Patient to be monitored and followed by the diet ammonia refrigeration technician. * Bishnu Viveros MD - 11/28/2019 [...] Hypertension 3. Psoriatic arthritis 4. GERD 5. [place] both ears no hearing aid 6. obesity Bp controlled and stable, Continue losartan HCTZ and pepcid Monitor BP Pain control and SCD's, PT will follow Diagnosis Date Arthritis Constipation Diverticulitis GERD (gastroesophageal reflux disease) High blood pressure [place] (hard of hearing) BOTH EARS AND NO [...] 11/27/2019 2:33 PM EST Physical Therapy Facility/Department: [facility] Initial Assessment NAME: Lucrecia Roberto : [...] GERD (gastroesophageal reflux disease), High blood pressure, [place] (hard of hearing), PONV (postoperative nausea and vomiting), Renal cyst, and Sciatic nerve pain. has a past surgical history that includes back surgery (2017); [place] tooth extraction; Appendectomy; Foot surgery (Right); Colonoscopy; [...] Ambulation Assistance: Independent Transfer Assistance: Independent Active Washer Meat: Yes Mode of Transportation: Car Objective AROM [...] 9:53 AM EST Lucrecia Roberto was ordered [id number]. D. Per [facility] Policy #4005, herbals and certain dietary [...] aware of patient's bed assignment to , 3902. documented in this encounter Assessments Diagnosis Spondylolisthesis of lumbar region- Primary Acquired spondylolisthesis Reason for Referral Status Reason Specialty Diagnoses / Procedures Referre d By Contact Referred To Contact Closed Radiology Diagnoses Lumbar stenosis with neurogenic claudication Procedures MRI Lumbar Spine WO Contrast Vic Pugh MD [address] [place] [address] Additional Source Comments INFORMATION SOURCE (unrecogn ized section and content) DATE CREATED AUTHOR AUTHOR'S ORGANIZ ATION 11/30/2019 [facility] DATE CREATED AUTHOR AUTHOR'S ORGANIZ ATION 12/13/2019 [facility] DATE CREATED AUTHOR AUTHOR'S ORGANIZ ATION 12/17/2020 [facility] DATE CREATED AUTHOR AUTHOR'S ORGANIZ ATION 05/01/2023 [facility] DATE CREATED AUTHOR AUTHOR'S ORGANIZ ATION 07/09/2023 [facility] Source Comments (unrecognize d section and content) In the event this informatio n is protected by the Federal Confidentiality of Alcohol and Drug Abuse Patient Records regulations: The Federal rules restrict any use of the information to criminally investigate or prosecute any alcohol or drug abuse patient.[facility] the event this information is protected by the Federal Confidentiality of Alcohol and Drug Abuse Patient Records regulations: The Federal rules restrict any use of the information to criminally investigate or prosecute any alcohol or drug abuse patient.[facility] the event this information is protected by the Federal Confidentiality of Alcohol and Drug Abuse Patient Records regulations: The Federal rules restrict any use of the information to criminally investigate or prosecute any alcohol or drug abuse patient.[facility] the event this information is protected by the Federal Confidentiality of Alcohol and Drug Abuse Patient Records regulations: The Federal rules restrict any use of the information to criminally investigate or prosecute any alcohol or drug abuse patient.[facility]In the event this information is protected by the Federal Confidentiality of Alcohol and Drug Abuse Patient Records regulations: The Federal rules restrict any use of the information to criminally investigate or prosecute any alcohol or drug abuse patient.[facility]In the event this information is protected by the Federal Confidentiality of Alcohol and Drug Abuse Patient Records regulations: The Federal rules restrict any use of the information to criminally investigate or prosecute any alcohol or drug abuse patient.[facility]In the event this information is protected by the Federal Confidentiality of Alcohol and Drug Abuse Patient Records regulations: The Federal rules restrict any use of the information to criminally investigate or prosecute any alcohol or drug abuse patient.[facility]In the event this information is protected by the Federal Confidentiality of Alcohol and Drug Abuse Patient Records regulations: The Federal rules restrict any use of the information to criminally investigate or prosecute any alcohol or drug abuse patient.[facility] CampusIn the event this information is protected by the Federal Confidentiality of Alcohol and Drug Abuse Patient Records regulations: The Federal rules restrict any use of the information to criminally investigate or prosecute any alcohol or drug abuse patient.[facility] CampusIn the event this information is protected by the Federal Confidentiality of Alcohol and Drug Abuse Patient Records regulations: The Federal rules restrict any use of the information to criminally investigate or prosecute any alcohol or drug abuse patient.[facility] CampusIn the event this information is protected by the Federal Confidentiality of Alcohol and Drug Abuse Patient Records regulations: The Federal rules restrict any use of the information to criminally investigate or prosecute any alcohol or drug abuse patient.[facility] CampusIn the event this information is protected by the Federal Confidentiality of Alcohol and Drug Abuse Patient Records regulations: The Federal rules restrict any use of the information to criminally investigate or prosecute any alcohol or drug abuse patient.[facility] CampusIn the event this information is protected by the Federal Confidentiality of Alcohol and Drug Abuse Patient Records regulations: The Federal rules restrict any use of the information to criminally investigate or prosecute any alcohol or drug abuse patient.[facility] [place] CampusIn the event this information is protected by the Federal Confidentiality of Alcohol and Drug Abuse Patient Records regulations: The Federal rules restrict any use of the information to criminally investigate or prosecute any alcohol or drug abuse patient.[facility] [place] CampusIn the event this information is protected by the Federal Confidentiality of Alcohol and Drug Abuse Patient Records regulations: The Federal rules restrict any use of the information to criminally investigate or prosecute any alcohol or drug abuse patient.[facility] [place] CampusIn the event this information is protected by the Federal Confidentiality of Alcohol and Drug Abuse Patient Records regulations: The Federal rules restrict any use of the information to criminally investigate or prosecute any alcohol or drug abuse patient.[facility] [place] [facility] Reason for Visit (unrecogniz ed section and [...] Care Teams (unrecognized sec tion and content) Fundraising Consultant Relationship Specialty Start Date End Date Ira Rajput DO PCP - General Family Practice 01/17/16 Fundraising Consultant Relationship Specialty Start Date End Date Ira Rajput DO PCP - General Family Practice 01/17/16 Fundraising Consultant Relationship Specialty Start Date End Date Ira Rajput DO PCP - General Family Practice 01/17/16 Fundraising Consultant Relationship Specialty Start Date End Date Ira Rajput DO PCP - General Family Practice 01/17/16 Fundraising Consultant Relationship Specialty Start Date End Date Ira Rajput DO PCP - General Family Medicine 01/17/16 Fundraising Consultant Relationship Specialty Start Date End Date Ira Rajput DO PCP - General Family Medicine 01/17/16 Fundraising Consultant Relationship Specialty Start Date End Date Ira Rajput DO PCP - General Family Medicine 01/17/16 Fundraising Consultant Relationship Specialty Start Date End Date Ira Rajput DO PCP - General Family Medicine 01/17/16 Fundraising Consultant Relationship Specialty Start Date End Date Ira Rajput DO PCP - General Family Medicine 01/17/16 Fundraising Consultant Relationship Specialty Start Date End Date Ira Rajput DO PCP - General Family Medicine 01/17/16 Fundraising Consultant Relationship Specialty Start Date End Date Ira [...] BE BASED ON THE PRIMARY CLINICAL RECORDS. [employer] [facility]. provides no warranty or guarantee of the accuracy or completeness of information in this document.
[2023-11-10 20:52] LABS: Mucous, Urine 0 SEEN /hpf (<or=2+)
[2023-11-10 20:55] LABS: Color, Urine Yellow (Yellow); Glucose, Dipstick Normal (Normal); Ketone-Dipstick Negative (Negative); Leukocyte Esterase-Dipstick 100 /ul (Negative); Nitrite-Dipstick Negative (Negative); Occult Blood-Urine 10 /ul (Negative); Protein-Dipstick Negative (Negative); Urine Bilirubin Dipstick Negative (Negative); Urine Clarity Clear (Clear); Urine Urobilinogen Normal (Normal)
[2023-11-10 21:03] LABS: Bacteria RARE /hpf (None Seen); Red Blood Cells-Urine 0-5 SEEN /hpf (0-5); Squamous Epithelial Cells - UA 0-5 SEEN /hpf (5-10); White Blood Cells 5-10 SEEN /hpf (0-5)
[2023-11-10] MEDS: Nitrofurantoin Macrocrystals 100 MG Capsule PO (21:14)
== END 2023-11-10 21:45 | disposition home or self-care (01) ==
PROVIDERS: Emergency Provider Emergency Medicine; PCP Family Medicine; Visit Provider Emergency Medicine
DX: N39.0 Urinary tract infection, site not specified (principal); I11.0 Hypertensive heart disease with heart failure; I50.32 Chronic diastolic (congestive) heart failure; B96.20 Unspecified Escherichia coli [E. coli] as the cause of diseases classified elsewhere; I25.10 Atherosclerotic heart disease of native coronary artery without angina pectoris; E78.00 Pure hypercholesterolemia, unspecified; K21.9 Gastro-esophageal reflux disease without esophagitis; Z79.82 Long term (current) use of aspirin; Z79.02 Long term (current) use of antithrombotics/antiplatelets; Z79.1 Long term (current) use of non-steroidal anti-inflammatories (NSAID); Z87.891 Personal history of nicotine dependence
CPT/HCPCS: 80048; 81001; 83605; 85025; 87040; 99283; A4216

== ENCOUNTER → 2023-11-28 | Outpatient (CLI) | payer MEDICARE, SELFPAY ==
[2023-11-28 14:15] LABS: Mucous, Urine 0 SEEN /hpf (<or=2+)
[2023-11-28 15:52] LABS: Color, Urine Yellow (Yellow); Glucose, Dipstick Normal (Normal); Ketone-Dipstick 5 mg/dl (Negative); Leukocyte Esterase-Dipstick 500 /ul (Negative); Nitrite-Dipstick Negative (Negative); Occult Blood-Urine 150 /ul (Negative); Protein-Dipstick 15 mg/dl (Negative); Specific Gravity, Urine 1.015 (1.002-1.030); Urine Bilirubin Dipstick Negative (Negative); Urine Clarity Sl. Cloudy (Clear); Urine Urobilinogen Normal (Normal)
[2023-11-28 16:07] LABS: Red Blood Cells-Urine 0-5 SEEN /hpf (0-5); White Blood Cells 50-100 SEEN /hpf (0-5)
[2023-11-28 16:08] LABS: Bacteria RARE /hpf (None Seen); Squamous Epithelial Cells - UA 5-10 SEEN /hpf (5-10)
--- OUTSIDE RECORDS SUMMARY | 2023-11-28 16:53 | XMS RPT_ITS | CCD ---
Author Name Unknown Address [address] [place] [address] Organization [facility] Care Team Providers Care Pin Drafter Name Role Phone Ira Rajput Primary Care Provider [phone] RIAN LECHUGA Attending Unavailable RIAN LECHUGA Primary Care Unavailable RIAN LECHUGA Admitting Unavailable Ira Rajput DO Primary Care Provider Sandeep BETANCUR Iradanielle Zambrano Primary Care Provid er Sandeep BETANCUR [place] Juan Manuel Primary Care Provid er Sandeep BETANCUR [place] Juan Manuel Primary Care Provid er [place] JUAN MANUEL Primary Care [facility] [place] RAJPUT [place] JUAN MANUEL Attending Scarlet [facility] Primary Care Scarlet RAJPUT [place] JUAN MANUEL Primary Care WALESKA Finley Referring [...] DULoxetine; Translations: [DULOXETINE] Drug Allergy 08-27-2018 Vomiting [place] (18 sources) rofecoxib; Translations: [ROFECOXIB] Drug Allergy 11-13-2016 [facility] Medications Current Medications Medication Drug Class(es) Dates Sig (Normalized) Sig (Original) acetaminophen 500 mg oral tablet (2 sources) Start: 11-26-2019 End: 11-26-2019 acetaminophen (TYLENOL) tablet 1,000 mg Ciaacbw-Hicqvqhzw-Tva ortega D (CALCIUM 1200+D3 PO) (3 sources) [...] 17:50-0400 Body temperature 97.59 [degF] Waleska David APRN.BUCKLE ATTACHER Work Phone: [place] 04-15-2023 17:50-0400 Body weight 101.61 kg Waleska David APRN.BUCKLE ATTACHER Work Phone: [place] 04-15-2023 17:50-0400 Diastolic blood pressure 76 mm[Hg] Waleska David APRN.BUCKLE ATTACHER Work Phone: [place] 04-15-2023 17:50-0400 Heart rate 98 /min Waleska David TWISTING OPERATOR.BUCKLE ATTACHER Work Phone: [place] 04-15-2023 17:50-0400 Respiratory rate 18 /min Waleska David APRN.BUCKLE ATTACHER Work Phone: [place] 04-15-2023 17:50-0400 SaO2% (BldA) [Mass fraction] 95 % Waleska David TWISTING OPERATOR.BUCKLE ATTACHER Work Phone: [place] 04-15-2023 17:50-0400 Systolic blood pressure 144 mm[Hg] Waleska David APRN.BUCKLE ATTACHER Work Phone: [place] 04-18-2022 14:40-0400 Body height 162.6 cm Ira Sandeep DO Work Phone: [place] 04-18-2022 14:40-0400 Body temperature 98.01 [degF] [place] Sandeep DO Work Phone: [place] 04-18-2022 14:40-0400 Body weight 98.43 kg [place] Sandeep DO Work Phone: [place] 04-18-2022 14:40-0400 Diastolic blood pressure 80 mm[Hg] [place] Sandeep DO Work Phone: [place] 04-18-2022 14:40-0400 Heart rate 101 /min [place] Sandeep DO Work Phone: [place] 04-18-2022 14:40-0400 SaO2% (BldA) [Mass fraction] 96 % [place] Sandeep DO Work Phone: [place] 04-18-2022 14:40-0400 Systolic blood pressure 120 mm[Hg] [place] Sandeep DO Work Phone: [place] 11-29-2019 10:05-0500 Body Temperature 97.59 [degF] Vic [employer], [place] 11-29-2019 10:05-0500 BP Diastolic 85 mm[Hg] [facility] [place] 11-29-2019 10:05-0500 BP Systolic 150 mm[Hg] [facility] [place] 11-29-2019 10:05-0500 Pulse (Heart Rate) 87 /min [facility] [place] 11-29-2019 10:05-0500 Pulse Oximetry 96 % Vic [facility] [place] 11-29-2019 10:05-0500 Respiratory Rate 16 /min [facility] [employer] 11-26-2019 09:25-0500 BMI (Body Mass Index) 39.55 kg/m2 Vic Brown [facility], [place] 11-26-2019 09:25-0500 Body weight 106.14 kg [facility] Stephanie [facility] , [place] 11-26-2019 09:25-0500 Height 163.8 cm Vic Brown [facility] , [place] 11-19-2019 14:28-0500 Body Temperature 97.39 [degF] [facility] [place] 11-19-2019 14:28-0500 BP Diastolic 77 mm[Hg] [facility] [place] 11-19-2019 14:28-0500 BP Systolic 142 mm[Hg] [facility] [place] 11-19-2019 14:28-0500 Pulse (Heart Rate) 97 /min Vic Brown [facility], [place] 11-19-2019 14:28-0500 Pulse Oximetry 100 % [facility] [place] 11-19-2019 14:01-0500 BMI (Body Mass Index) 39.82 kg/m2 Vic Brown [facility], [place] 11-19-2019 14:01-0500 Body weight 105.23 kg [facility] [place] 11-19-2019 14:01-0500 Height 162.6 cm [facility] [place] 11-19-2019 14:01-0500 Respiratory Rate 16 /min Vic Brown [place], [place] Encounters Encounter Date Encounter Type Care Provider Facility Start: 08-03-2023 Refill [place] Lyric Rajput DO Work Phone: [facility] [place] Procedures Date Procedure Procedure Detail Performing Clinician Start: 04-16-2023 Dup-scan xtr veins unilateral/limited study Waleska David APRN.BUCKLE ATTACHER Work Phone: Start: 04-18-2022 Adult depression scr eening assessment [facility] DO Work Phone: Start: 10-29-2021 Lipid 1996 panel - S sofia or Plasma [facility] DO Work Phone: Start: 05-10-2021 Mammography [place] O liverio DO Work Phone: Start: 10-20-2020 Adult depression scr eening assessment [place] Sandeep DO Work Phone: Start: 11-28-2019 BASIC METABOLIC PANE L W/ REFLEX TO MG FOR LOW K Magydiandra Tuttle Work Phone: Start: 11-27-2019 Blood count complete auto&auto difrntl wbc Magy Tuttle Work Phone: Start: 11-26-2019 OPERATIVE REPORT 3m Sca nning Start: 11-19-2019 Ecg routine ecg w/le ast 12 lds w/i&r Justen Dg [employer] Work Phone: Start: 11-19-2019 ADD ON LAB TEST Justen miner [employer] Work Phone: Start: 11-19-2019 Basic metabolic pane l calcium total Justen Dg [employer] Work Phone: Start: 11-19-2019 Blood count complete automated Justen Dg [employer] Work Phone: Start: 11-19-2019 Blood typing serologic abo Justen Dg [employer] Work Phone: Start: 11-19-2019 Hemoglobin glycosyla gilberto a1c [employer]en D[employer] Work Phone: Plan of Treatment Date Care Activity Detail Author Start: 10-29-2026 Lipid 1996 panel - S sofia or Plasma Lipid Screening [place] Start: 10-29-2026 LIPID SCREEN LIPID SCREEN [place] Start: 04-29-2026 Diabetes Screening Diabetes Screenin g [place] Start: 10-07-2025 DIABETES SCREEN DIABETES SCREEN [facility] Start: 10-29-2024 DIABETES SCREEN DIABETES SCREEN [facility] Start: 10-07-2023 ANNUAL PCP TEAM ACADEMIC ADVISING DIRECTOR PREETHI DISEASE VISIT ANNUAL PCP TEAM CHRONIC DISEASE VISIT [place] Start: 05-30-2023 Covid-19 Vaccine () Covid-19 Vaccine () [place] Start: 05-30-2023 Influenza vaccination C [facility] Start: 04-18-2023 Adult depression scr eening assessment DEPRESSION SCREENING [place] Start: 04-18-2023 ANNUAL PCP TEAM ACADEMIC ADVISING DIRECTOR PREETHI DISEASE VISIT ANNUAL PCP TEAM CHRONIC DISEASE VISIT [place] Start: 10-19-2022 ANNUAL PCP TEAM ACADEMIC ADVISING DIRECTOR PREETHI DISEASE VISIT ANNUAL PCP TEAM CHRONIC DISEASE VISIT [place] Start: 10-19-2022 BP CONTROLLED (<130/80) BP CONTROLLE D (<130/80) [place] Start: 09-29-2022 ADVANCE DIRECTIVE DISCUSSION ADVANCE DIRECTIVE DISCUSSION [place] Start: 09-29-2022 DEPRESSION ASSESSMENT DEPRESSION ASS ESSMENT [place] Start: 05-30-2022 Influenza vaccination INFLUENZA (#1) [place] Start: 05-10-2022 Mammography [place] Start: 04-25-2022 COVID-19 VACCINE (5 - Booster for Pfizer series) COVID-19 VACCINE (5 - Booster for Pfizer series) [place] Start: 04-19-2022 BONE DENSITY BONE DENSITY [place] Immunizations Immunization Date Immunization Notes Care Provider Cydney orozco 10-08-2022 influenza virus vaccine, unspecified formulation Ira Sandeep DO Work Phone: [place] 10-11-2021 influenza, high dose seasonal, preservative-free [place] Sandeep DO Work Phone: [place] 10-11-2021 Influenza, injectabl e, Madin Francisca Canine Kidney, preservative free, quadrivalent [place] Sandeep DO Work Phone: [place] 11-29-2019 influenza, injectabl e, quadrivalent, preservative free Vic Keaton [place] 11-29-2019 influenza quadrivale nt split vaccine (FLUZONE;FLUARIX;FLULAV AL;AFLURIA) injection 0.5 mL [place], [place] 11-15-2015 pneumococcal conjuga te vaccine, 13 valent [place] Sandeep DO Work Phone: [place] 09-06-2015 influenza, seasonal, injectable [place] Sandeep DO Work Phone: [place] 09-06-2015 influenza, seasonal, injectable, preservative free Ira Sandeep DO Work Phone: [place] 07-29-2015 influenza, seasonal, injectable, preservative free Ira Sandeep DO Work Phone: [place] 11-29-2014 poliovirus vaccine, inactivated [place] Sandeep DO Work Phone: [place] Payers Date Payer Category Payer Medicare UHC MEDICARE UHC MEDICARE ADVANTAGE O [id number] 2021-Present [phone] [address] [address] [place] [address] O [id number] 2021 Medicare [id number] 2021 Unknown [id number] 2016 Medicare MEDICARE MEDICAR E PART A AND B xxxxxxxxxxx 2016-Present [phone] [place] [address] xxxxxxxxxxx [id number] 2016 Medicare MEDICARE MEDICAR E A AND B [id number] 2016-[address] [place] [address] Medicare [id number] 1959 Medicare [id number] 1950 Unknown [id number] Social History Date Type Detail Facility Start: 10-14-2019 End: 11-19-2019 Tobacco smoking status NHIS Current some day smoker [facility] Work Phone: History of tobacco use Cigarette Smoker S [facility] Work Phone: Start: 11-19-2019 End: 10-13-2022 Cigarettes smoked current (pack per day) - Reported [place] Start: 10-14-2019 End: 11-19-2019 Alcohol intake [facility] (finding[facility] Work Phone: Start: 10-14-2019 History SDOH Alcohol Frequency 2 [employer] Work Phone: Start: 10-14-2019 Alcohol Comment once every 2-3 yrs S [employer] Work Phone: Start: 1950 Sex Assigned At Not on file S [employer] Work Phone: Start: 11-13-2016 End: 10-07-2022 Tobacco smoking status NHIS Smokes tobacco daily [place] Work Phone: Start: 11-13-2016 End: 10-07-2022 Tobacco use and exposure Smokeless tobacco non-user [place] Work Phone: Start: 10-20-2020 End: 04-15-2023 Alcohol intake Current non-drinker of alcohol (finding) [place] Start: 11-13-2016 Tobacco Comment 5 cigs per day [facility] Start: 09-29-2021 End: 04-18-2022 Exposure to SARS-CoV-2 (event) Not sure [place] Start: 04-18-2022 End: 10-07-2022 Tobacco Comment 1-2 cigs per day [place] Start: 10-13-2022 End: 04-15-2023 Tobacco use panel [place] Adult Depression Screening Assessment 3 [place] Start: 2021 Gender identity Identifies as female gender (finding) [place] Start: 2021 Sexual orientation Heterosexual (fin ding) [place] Medical Equipment Procedure Code Equipment Code Equipment Origin al Text Equipment Identifier Dates Graft Infuse 18m m Large Ii Bovine Collagen Rhbmp-2 26mm Bone Absorbable - [id number] Start: 11-21-2016 Clinical Notes 10-08-2021 to [...] note to pharmacy documented in this encounter [place] 04-15-2023 Note HNO ID: [id number] Author: Waleska David APRN.MAI Service: ? Author [...] Take 8.6 mg by mouth twice daily. Chino-3 Fatty Acids-Vitamin E 1,000 mg cap Take [...] US DVT LOWER LEFT Waleska David APRN.MAI [facility] 04-15-2023 History of Present illness Narrative [...] Take 8.6 mg by mouth twice daily. Ch[place]-3 Fatty Acids-Vitamin E 1,000 mg cap Take [...] - US DVT LOWER LEFT Waleska David APRN.BUCKLE ATTACHER documented in this encounter [place] 03-25-2023 Miscellaneous Notes Pharmacy faxed requesting the following refill Refill(s) Requested: Requested Prescriptions Pending Prescriptions Disp Refills lansoprazole (PREVACID) 30 mg capsule [Pharmacy Med Name: LANSOPRAZOLE DR 30 MG CAPSULE] 90 capsule 0 Sig: take 1 capsule by mouth once daily ALLERGIES Allergen Reactions Vioxx [Rofecoxib] Swelling Pregabalin Unknown, Swelling Other reaction(s): leg swelling Duloxetine Vomiting Other reaction(s): vomiting Erythromycin Unknown (home) [phone] (cell) Last Office Visit Date: 10/07/2022 Last [facility] Visit: Visit date not found Future Appointment: Visit date not found The patients preferred pharmacy has been captured for this encounter? yes Request is for script(s) to be escript to pharmacy. Marilu Barnes LPN documented in this encounter [place] 01-22-2023 Miscellaneous Notes Call pharm for refills documented in this encounter [place] 01-21-2023 Miscellaneous Notes Patient MyChart message requesting the following refill Refill(s) Requested: Requested Prescriptions Pending Prescriptions Disp Refills fluconazole (DIFLUCAN) 150 mg tablet 3 tablet 0 Sig: Take 1 tablet by mouth once daily. ALLERGIES Allergen Reactions Vioxx [Rofecoxib] Swelling Pregabalin Unknown, Swelling Other reaction(s): leg swelling Duloxetine Vomiting Other reaction(s): vomiting Erythromycin Unknown (home) [phone] (cell) Last Office Visit Date: 10/07/2022 Last [facility] Visit: Visit date not found Future Appointment: Visit date not found The patients preferred pharmacy has been captured for this encounter? yes Request is for script(s) to be escript to pharmacy. Marilu Barnes LPN documented in this encounter [place] 12-25-2022 Miscellaneous Notes Pharmacy faxed requesting the following refill Refill(s) Requested: Requested Prescriptions Pending Prescriptions Disp Refills hydroCHLOROthiazide 25 mg tablet [Pharmacy Med Name: HYDROCHLOROTHIAZIDE 25 MG TAB] 90 tablet 1 Sig: take 1 tablet by mouth once daily ALLERGIES Allergen Reactions Vioxx [Rofecoxib] Swelling Pregabalin Unknown, Swelling Other reaction(s): leg swelling Duloxetine Vomiting Other reaction(s): vomiting Erythromycin Unknown (home) [phone] (cell) Last Office Visit Date: 10/07/2022 Last [facility] Visit: Visit date not found Future Appointment: Visit date not found The patients preferred pharmacy has been captured for this encounter? yes Request is for script(s) to be escript to pharmacy. Ofelia Hodge LPN documented in this encounter [place] 12-24-2022 Miscellaneous Notes Pharmacy faxed requesting the following refill Refill(s) Requested: Requested Prescriptions Pending Prescriptions Disp Refills lansoprazole (PREVACID) 30 mg capsule [Pharmacy Med Name: LANSOPRAZOLE DR 30 MG CAPSULE] 90 capsule 0 Sig: take 1 capsule by mouth once daily ALLERGIES Allergen Reactions Vioxx [Rofecoxib] Swelling Pregabalin Unknown, Swelling Other reaction(s): leg swelling Duloxetine Vomiting Other reaction(s): vomiting Erythromycin Unknown (home) [phone] (cell) Last Office Visit Date: 10/07/2022 Last [facility] Visit: Visit date not found Future Appointment: Visit date not found The patients preferred pharmacy has been captured for this encounter? yes Request is for script(s) to be escript to pharmacy. Marilu Barnes LPN documented in this encounter [place] 10-07-2022 Note HNO ID: [id number] Author: Ira Rajput DO Service: ? Author Type: Physician Type: Progress Notes Filed: 10/13/2022 12:52 PM Note Text: [facility] [place] Rajput DO [address] [place] [address] Date of Evaluation: 10/07/2022 Patient Name: Lucrecia Roberto : 1950 Chief Complaint: Patient presents with: 6 Month Exam Hypertension frequent yeast infections Nursing Intake: There are no exam notes on file for this visit. Subjective Ms. Roberto is a 72 year old female who presents with the following complaint(s): The history is provided by the patient. No strings teacher was used. Hypertension This is a chronic [...] Take 8.6 mg by mouth twice daily. [place]-3 Fatty Acids-Vitamin E 1,000 mg cap Take [...] spray into e (more content not included)... [facility] 09-25-2022 Miscellaneous Notes Scheduled Pt for [...] Vomiting Other reaction(s): vomiting Erythromycin Unknown (home) [phone] (cell) Last Office Visit Date: 04/18/2022 Last [facility] Visit: Visit date not found Future Appointment: Visit date not found The patients preferred pharmacy has been captured for this encounter? yes Request is for script(s) to be escript to pharmacy. Ofelia Hodge LPN documented in this encounter [place] 04-18-2022 History of Present illness Narrative Images from the original note were not included. [facility] [address] [place] [address] Date of Evaluation: 04/18/2022 Patient Name: Lucrecia [...] by mouth every 6 hours as needed. [place]-3 Fatty Acids-Vitamin E (FISH OIL) 1,000 mg [...] 2022 3:05 PM. documented in this encounter [place] 01-03-2022 Miscellaneous Notes Pharmacy faxed requesting the following refill Refill(s) Requested: Pending Prescriptions Disp Refills HYDROCHLOROTHIAZIDE 25 MG TABLET 90 tablet 3 Sig: take 1 tablet by mouth once daily LUZ: Yes ALLERGIES Allergen Reactions Vioxx [Rofecoxib] Swelling Pregabalin Unknown, Swelling Other reaction(s): leg swelling Duloxetine Vomiting Other reaction(s): vomiting Erythromycin Unknown (home) [phone] (cell) Last Office Visit Date: 10/19/2021 Last [facility] Visit: Visit date not found Future Appointment: 04/18/2022 The patients preferred pharmacy has been captured for this encounter? yes Request is for script(s) to be escript to pharmacy. Cathi Nolen LPN documented in this encounter [place] 01-02-2022 Miscellaneous Notes Patient updated. Script sent diverticulitis documented in this encounter [place] 10-08-2021 Miscellaneous Notes Pharmacy faxed requesting the [...] Vomiting Other reaction(s): vomiting Erythromycin Unknown (home) [phone] (cell) Last Office Visit Date: 04/19/2021 Last [facility] Visit: Visit date not found Future Appointment: 10/19/2021 The patients preferred pharmacy has been captured for this encounter? yes Request is for script(s) to be escript to pharmacy. Ofelia Hodge LPN documented in this encounter [place] documented in this encounter [facility] Work Phone: Evaluation note* Diagnosis Gastroesophageal reflux disease, unspecified whether esophagitis present Essential hypertension Unspecified essential hypertension documented in this encounter [facility] note* Diagnosis Essential hypertension Unspecified essential hypertension documented in this encounter [facility] note* Diagnosis Primary hypertension- Primary Unspecified essential hypertension Gastroesophageal reflux disease without esophagitis Esophageal reflux Psoriasis Other psoriasis Seasonal allergies Allergic rhinitis, cause unspecified documented in this encounter [facility] note* Diagnosis Gastroesophageal reflux disease, unspecified whether esophagitis present documented in this encounter [facility] note* Diagnosis Gastroesophageal reflux disease, unspecified whether esophagitis present documented in this encounter [facility] note* Diagnosis Essential hypertension Unspecified essential hypertension documented in this encounter [facility] note* Diagnosis Vaginal yeast infection Candidiasis of vulva and vagina documented in this encounter [facility] note* Diagnosis Leg swelling- Primary Swelling of limb documented in this encounter [facility] note* Diagnosis Leg swelling Swelling of limb documented in this encounter [facility] note* Diagnosis Gastroesophageal reflux disease, unspecified whether esophagitis present documented in this encounter [facility] for referral (narrative)* Diagnostic Procedure Only (Urgent) - Pending Review Specialty Diagnoses / Procedures Referred By Alvarez lord Referred To Contact US IMAGING Diagnoses Leg swelling Procedures US DVT LOWER LEFT DUP-SCAN XTR VEINS UNILATERAL/LIMITED STUDY Waleska David APRN.BUCKLE ATTACHER [address] [place] [address] Us Imaging Referral ID Status Reason Start Date Expiration Date Visits Requested Visits Authorized [id number] Pending Review Auto-Generat ed Referral 04/15/2023 05/14/2024 1 1 [facility] for referral (narrative)* Diagnostic Procedure Only (Urgent) - Closed Specialty Diagnoses / Procedures Referred By Contac t Referred To Contact US IMAGING Diagnoses Leg swelling Procedures US DVT LOWER LEFT DUP-SCAN XTR VEINS UNILATERAL/LIMITED STUDY Waleska David APRN.BUCKLE ATTACHER [address] [place] [address] Us Imaging Referral ID Status Reason Start Date Expiration Date V isits Requested Visits Authorized [id number] Closed Auto-Generate d Referral 04/15/2023 05/14/2024 1 1 [facility] for visit Narrative* Diagnostic Procedure Only (Urgent) - Closed Specialty Diagnoses / Procedures Referred By Contac t Referred To Contact US IMAGING Diagnoses Leg swelling Procedures US DVT LOWER LEFT DUP-SCAN XTR VEINS UNILATERAL/LIMITED STUDY Waleska David APRN.BUCKLE ATTACHER [address] [place] [address] Us Imaging Referral ID Status Reason Start Date Expiration Date V isits Requested Visits Authorized [id number] Closed Auto-Generate d Referral 04/15/2023 05/14/2024 1 1 [place] Discharge Instructions * Instructions* Radha Khan RN [...] Your home care will be provided by: [facility] [phone] * Additional Instructions* Gualberto Foley PA-C - [...] Documents on File Type Date Recorded Patient Dump Operator Expl anation Advance Directives and Living Will Power of Ball Assembler Latest Code Status on File Code Status Date Activated Date Inactivated Comments Full Code 11/26/2019 3:15 PM Full Code 11/26/2019 9:21 AM 11/26/2019 3:01 PM Documents on File Type Date Recorded Patient Dump Operator Expl anation Advance Directives and Living Will Power of Ball Assembler Summary Purpose Family History No Family History [...] d/c to home today. * Trang Hair, TWISTING OPERATOR - BUCKLE ATTACHER - 11/28/2019 1:07 PM EST 11/28/2019 Referring [...] GERD (gastroesophageal reflux disease) High blood pressure RAMONA (hard of hearing) BOTH EARS AND NO [...] Problem List Diagnosis Spondylolisthesis of lumbar region MEASUREMENT SPECIALIST: None Pain Management Adjuvants: Acetaminophen 1,000 mg Lidoderm patch Tizanidine Hydromorphone PRN- 1 mg used 11/26 Oxycodone PRN - 40 mg used Assessment: 1. Acute pain s/p L5 decompression and fusion. 2. Chronic pain 3. Opioid Tolerant/Dependent- prescribed [place] Pain Management Plan: -Acetaminophen 1,000 mg TID [...] Acute Pain Service is available by pager #[phone] Friday-Friday [phone]. For questions oracute issues after hours, please contact hospital threading machine operator for name and pager number of the Pain ManagementProvider SPEED OPERATOR. [facility] Management has agreed to see our patients after they are discharged. Patients should be instructed to call [phone]. Please ask patient to sign a medical release andsend medical records to [facility].They will contact the patient with an appointment time. * Robyn Wagner DTR - 11/28/2019 12:01 PM EST Nutrition rescreen completed. Chart reviewed. Patient to be monitored and followed by the diet systems protection technician. * Bishnu Viveros MD - 11/28/2019 [...] Hypertension 3. Psoriatic arthritis 4. GERD 5. RAMONA both ears no hearing aid 6. obesity Bp controlled and stable, Continue losartan HCTZ and pepcid Monitor BP Pain control and SCD's, PT will follow Diagnosis Date Arthritis Constipation Diverticulitis GERD (gastroesophageal reflux disease) High blood pressure [place] (hard of hearing) BOTH EARS AND NO [...] 11/27/2019 2:33 PM EST Physical Therapy Facility/Department: [facility] Initial Assessment NAME: Lucrecia Roberto [...] GERD (gastroesophageal reflux disease), High blood pressure, RAMONA (hard of hearing), PONV (postoperative nausea and vomiting), Renal cyst, and Sciatic nerve pain. has a past surgical history that includes back surgery (2017); [place] tooth extraction; Appendectomy; Foot surgery (Right); Colonoscopy; [...] Ambulation Assistance: Independent Transfer Assistance: Independent Active Formula Technician: Yes Mode of Transportation: Car Objective AROM [...] 9:53 AM EST Lucrecia Roberto was ordered [id number]. D. Per [facility] Policy #4005, herbals and certain dietary [...] aware of patient's bed assignment to , 4556. documented in this encounter Assessments Diagnosis Spondylolisthesis of lumbar region- Primary Acquired spondylolisthesis Reason for Referral Status Reason Specialty Diagnoses / Procedures Referre d By Contact Referred To Contact Closed Radiology Diagnoses Lumbar stenosis with neurogenic claudication Procedures MRI Lumbar Spine WO Contrast Vic Pugh MD [address] [place] [address] Additional Source Comments INFORMATION SOURCE (unrecogn ized section and content) DATE CREATED AUTHOR AUTHOR'S ORGANIZ ATION 11/30/2019 [facility] DATE CREATED AUTHOR AUTHOR'S ORGANIZ ATION 12/13/2019 [facility] DATE CREATED AUTHOR AUTHOR'S ORGANIZ ATION 12/17/2020 [facility] DATE CREATED AUTHOR AUTHOR'S ORGANIZ ATION 05/01/2023 [facility] DATE CREATED AUTHOR AUTHOR'S ORGANIZ ATION 07/09/2023 [facility] Source Comments (unrecognize d section and content) In the event this informatio n is protected by the Federal Confidentiality of Alcohol and Drug Abuse Patient Records regulations: The Federal rules restrict any use of the information to criminally investigate or prosecute any alcohol or drug abuse patient.[place] the event this information is protected by the Federal Confidentiality of Alcohol and Drug Abuse Patient Records regulations: The Federal rules restrict any use of the information to criminally investigate or prosecute any alcohol or drug abuse patient.[place] the event this information is protected by the Federal Confidentiality of Alcohol and Drug Abuse Patient Records regulations: The Federal rules restrict any use of the information to criminally investigate or prosecute any alcohol or drug abuse patient.[place] the event this information is protected by the Federal Confidentiality of Alcohol and Drug Abuse Patient Records regulations: The Federal rules restrict any use of the information to criminally investigate or prosecute any alcohol or drug abuse patient.[place] the event this information is protected by the Federal Confidentiality of Alcohol and Drug Abuse Patient Records regulations: The Federal rules restrict any use of the information to criminally investigate or prosecute any alcohol or drug abuse patient.[place] the event this information is protected by the Federal Confidentiality of Alcohol and Drug Abuse Patient Records regulations: The Federal rules restrict any use of the information to criminally investigate or prosecute any alcohol or drug abuse patient.[place] the event this information is protected by the Federal Confidentiality of Alcohol and Drug Abuse Patient Records regulations: The Federal rules restrict any use of the information to criminally investigate or prosecute any alcohol or drug abuse patient.[place] the event this information is protected by the Federal Confidentiality of Alcohol and Drug Abuse Patient Records regulations: The Federal rules restrict any use of the information to criminally investigate or prosecute any alcohol or drug abuse patient.[place] the event this information is protected by the Federal Confidentiality of Alcohol and Drug Abuse Patient Records regulations: The Federal rules restrict any use of the information to criminally investigate or prosecute any alcohol or drug abuse patient.[place]In the event this information is protected by the Federal Confidentiality of Alcohol and Drug Abuse Patient Records regulations: The Federal rules restrict any use of the information to criminally investigate or prosecute any alcohol or drug abuse patient.[place] the event this information is protected by the Federal Confidentiality of Alcohol and Drug Abuse Patient Records regulations: The Federal rules restrict any use of the information to criminally investigate or prosecute any alcohol or drug abuse patient.[place]In the event this information is protected by the Federal Confidentiality of Alcohol and Drug Abuse Patient Records regulations: The Federal rules restrict any use of the information to criminally investigate or prosecute any alcohol or drug abuse patient.[place]In the event this information is protected by the Federal Confidentiality of Alcohol and Drug Abuse Patient Records regulations: The Federal rules restrict any use of the information to criminally investigate or prosecute any alcohol or drug abuse patient.[place]In the event this information is protected by the Federal Confidentiality of Alcohol and Drug Abuse Patient Records regulations: The Federal rules restrict any use of the information to criminally investigate or prosecute any alcohol or drug abuse patient.[place]In the event this information is protected by the Federal Confidentiality of Alcohol and Drug Abuse Patient Records regulations: The Federal rules restrict any use of the information to criminally investigate or prosecute any alcohol or drug abuse patient.[place]In the event this information is protected by the Federal Confidentiality of Alcohol and Drug Abuse Patient Records regulations: The Federal rules restrict any use of the information to criminally investigate or prosecute any alcohol or drug abuse patient.[place] Reason for Visit (unrecogniz ed section and [...] Care Teams (unrecognized sec tion and content) Pin Drafter Relationship Specialty Start Date End Date Ira Rajput DO PCP - General Family Practice 01/17/16 Pin Drafter Relationship Specialty Start Date End Date Ira Rajput DO PCP - General Family Practice 01/17/16 Pin Drafter Relationship Specialty Start Date End Date Ira Rajput DO PCP - General Family Practice 01/17/16 Pin Drafter Relationship Specialty Start Date End Date Ira Rajput DO PCP - General Family Practice 01/17/16 Pin Drafter Relationship Specialty Start Date End Date Ira Rajput DO PCP - General Family Medicine 01/17/16 Pin Drafter Relationship Specialty Start Date End Date Ira Rajput DO PCP - General Family Medicine 01/17/16 Pin Drafter Relationship Specialty Start Date End Date Ira Rajput DO PCP - General Family Medicine 01/17/16 Pin Drafter Relationship Specialty Start Date End Date Ira Rajput DO PCP - General Family Medicine 01/17/16 Pin Drafter Relationship Specialty Start Date End Date Ira Rajput DO PCP - General Family Medicine 01/17/16 Pin Drafter Relationship Specialty Start Date End Date Ira Rajput DO PCP - General Family Medicine 01/17/16 Pin Drafter Relationship Specialty Start Date End Date Ira [...] BE BASED ON THE PRIMARY CLINICAL RECORDS. [employer] [facility]. provides no warranty or guarantee of the accuracy or completeness of information in this document.
== END | disposition home or self-care (01) ==
LOC: BIMLAB 14:09
PROVIDERS: PCP Family Medicine; Visit Provider Physician Assistant
DX: N39.0 Urinary tract infection, site not specified (principal)
CPT/HCPCS: 81001; 87077; 87086; 87088

== ENCOUNTER 2023-11-29 11:35 | Inpatient (IN) | payer MEDICARE, SELFPAY ==
[2023-11-29] VITALS (36 sets, daily range): BP systolic 79–159; BP diastolic 27–96; PULSE 40–88; RESP 18–28; TEMP 36–37.4; O2SAT 92–100; BMI 36.8; BMI 37.1
--- NOTE | 2023-11-29 11:44 | EX.ED.DYSGE1 ---
HPI History of Present Illness Chief Complaint: General Illness Informant: patient Onset/Context/Timing Onset: Today Context: Sudden Onset Timing: Continuous Quality: Lightheaded Location: Generalized Worsened by: Nothing Relieved by: Nothing Narrative Narrative: Patient presents with generalized weakness, lightheadedness, and not feeling well that began today. Patient states it began when she woke up. Patient states it began suddenly. Patient states it has been constant all day. Patient states she feels lightheaded like she might pass out. Patient states nothing makes it better nothing makes it worse. Patient admits to some subjective fevers and chills. Patient admits to some nausea and vomiting. Patient admits to some pain in her neck and back. Patient denies any urinary complaints. [facility] Medical History Abrasion Ambulates with cane Arthritis Atherosclerotic heart disease of [place] coronary artery without angina pectoris Back pain Back problem C. difficile colitis Diastolic heart failure Elevated glucose Gastric reflux GERD (gastroesophageal reflux disease) Hearing difficulty High blood pressure High cholesterol History of diverticulitis History of hiatal hernia History of steroid therapy History of ulceration HTN (hypertension) IBS (irritable bowel syndrome) Low back pain Neuropathy Obesity Osteoarthritis Osteopenia Psoriatic arthritis Smoker Uses wheelchair Walker as ambulation aid Wears glasses Home Medications omega-3 fatty acids-fish oil 340 mg-1,000 mg capsule (Fish Oil) 1,000 mg PO DAILY supplment 11/10/15 [History Last Taken 10/11/23] tizanidine 4 mg tablet 4 mg PO QHS 11/10/15 [History Last Taken 11/16/15 21:30] calcium carbonate 600 mg calcium (1,500 mg) tablet 2,000 mg PO DAILY bone health 11/17/15 [History Last Taken 10/11/23] cholecalciferol (vitamin D3) 25 mcg (1,000 unit) tablet (Vitamin D3) 1,000 unit PO BID supplement 11/17/15 [History Last Taken 10/11/23] folic acid 1 mg tablet 1 mg PO DAILY 04/05/22 [History Last Taken Unknown] melatonin 10 mg capsule 10 mg PO HS PRN Sleep 04/05/22 [History Last Taken 10/10/23] prednisone 5 mg tablet 1 tab PO DAILY 04/30/22 [History Last Taken Unknown] aspirin 81 mg chewable tablet 81 mg PO DAILY@0800 stent #0 tabs 06/13/23 [Rx Last Taken 10/11/23] miconazole nitrate 2 % topical powder (Desenex) 1 applic topical BID #0 grams 06/13/23 [Rx Last Taken 10/10/23] oxymetazoline 0.05 % nasal spray (Nasal Eure (oxymetazoline)) 2 spray NASAL X1 PRN NASAL CONGESTION #0 mL 06/13/23 [Rx Last Taken 10/10/23] polyethylene glycol 3350 17 gram oral powder packet 17 g PO DAILY #0 ea 06/13/23 [Rx Last Taken 10/10/23] Bedside commode #1 ea 07/16/23 [Rx Last Taken Unknown] hydrochlorothiazide 25 mg tablet 25 mg PO DAILY #1 TAB 07/28/23 [Rx Last Taken Unknown] atorvastatin 40 mg tablet 40 mg PO QHS #90 tabs 08/04/23 [Rx Last Taken Unknown] clopidogrel 75 mg tablet (Plavix) 75 mg PO DAILY #90 tabs 08/04/23 [Rx Last Taken Unknown] metoprolol tartrate 25 mg tablet 12.5 mg (1/2 x 25 mg) PO BID #90 tabs 08/04/23 [Rx Last Taken Unknown] fluticasone propionate 50 mcg/actuation nasal spray,suspension 2 spray intranasal DAILY #16 grams 09/08/23 [Rx Last Taken Unknown] nebulizers #1 ea 11/03/23 [Rx Last Taken Unknown] dextromethorphan-guaifenesin 30 mg-600 mg tablet extended [id number] hr (Mucinex DM) 2 tab PO BID PRN cough 11/10/23 [History Last Taken Unknown] hydrocodone 10 mg-acetaminophen 325 mg tablet 0.5 tab PO BID Pain 10 days #10 tabs 11/28/23 [Rx Last Taken Unknown] methenamine hippurate 1 gram tablet 1 g PO BID #30 tabs 11/28/23 [Rx Last Taken Unknown] nitrofurantoin monohydrate/macrocrystals 100 mg capsule 100 mg PO Q12 #6 CAPSULES 11/28/23 [Rx Last Taken Unknown] buprenorphine 15 mcg/hour weekly transdermal patch 1 patch transdermal Q7D 11/29/23 [History Last Taken Unknown] fluconazole 150 mg tablet 150 mg PO DAILY 11/29/23 [History Last Taken Unknown] ipratropium 0.5 mg-albuterol 3 mg (2.5 mg base)/3 mL nebulization soln 3 ml inhalation Q6H 11/29/23 [History Last Taken Unknown] lansoprazole 30 mg capsule,delayed release 30 mg PO DAILY 11/29/23 [History Last Taken Unknown] losartan 50 mg tablet 50 mg PO DAILY 11/29/23 [History Last Taken Unknown] potassium chloride 20 mEq oral packet 20 meq PO DAILY 11/29/23 [History Last Taken Unknown] Allergy/AdvReac Type Severity Reaction Status Date / Time duloxetine [From Cymbalta] Allergy Intermediate Swelling Verified 11/29/23 11:36 erythromycin base Allergy Nausea/Vom/ Verified 11/29/23 11:36 Diarrhea pregabalin [From Lyrica] Allergy Swelling Verified 11/29/23 11:36 Family History Mother Diabetes Arthritis Heart disease CVA (cerebral vascular accident) Hypertension History of blood transfusion Father Pancreatic cancer Alcoholism Peptic ulcer disease Son Seizures Suicide attempt Surgical History H/O laminectomy History of appendectomy History of appendectomy History of breast biopsy History of colonoscopy (05/01/02) History of foot surgery History of spinal surgery Stented coronary artery (06/03/23) Social History Smoking Status: Former smoker how long ago did patient quit smoking: about 2 months ago alcohol intake: never substance use type: does not use what type of physical activity do you participate in: none seatbelt use: always do you feel safe at home: Yes ROS ROS ED Constitutional Constitutional ED: Reports chills and fever(s) Eyes Eyes: Denies blurry vision or change in vision ENT ENT ED: Denies rhinorrhea or sore throat Cardiovascular Cardiovascular: Denies chest pain or palpitations Respiratory/Chest Respiratory/Chest: Denies cough or dyspnea Gastrointestinal Gastrointestinal: Reports nausea and vomiting Genitourinary Genitourinary ED: Denies dysuria or hematuria Musculoskeletal Musculoskeletal: Reports back pain and neck pain Integumentary Denies abscess or rash Neurologic Neurologic: Denies headache(s) or weakness Allergic/Immunologic Allergic/Immunologic ED: Denies mouth swelling or urticaria EXAM Physical Exam Const Vital Signs: 11/29/23 11:36 11/29/23 11:35 11/29/23 11:43 Temperature 97.8 F 98.9 F Temperature Source Temporal Oral Pulse Rate 88 87 Respiratory Rate 18 18 Respiratory Effort Normal Respiratory Pattern Normal Blood Pressure 81/81 L Blood Pressure Mean 81 Pulse Ox 92 94 Oxygen Delivery Method Nasal Cannula Nasal Cannula Oxygen Flow Rate (L/min) 4 4 11/29/23 12:33 11/29/23 12:45 11/29/23 13:02 Temperature 97.6 F L 97.6 F L Temperature Source Temporal Temporal Pulse Rate 81 80 80 Respiratory Rate 27 H 21 H 22 H Respiratory Effort Respiratory Pattern Blood Pressure 84/42 L 92/51 L 84/27 L Blood Pressure Mean 56 64 46 Pulse Ox 95 95 95 Oxygen Delivery Method Nasal Cannula Nasal Cannula Oxygen Flow Rate (L/min) 5 4 4 11/29/23 13:26 11/29/23 13:19 11/29/23 13:21 Temperature Temperature Source Pulse Rate 83 85 82 Respiratory Rate 18 24 H 24 H Respiratory Effort Respiratory Pattern Blood Pressure 86/57 L 85/55 L 94/61 Blood Pressure Mean 66 65 72 Pulse Ox 97 95 97 Oxygen Delivery Method Nasal Cannula Nasal Cannula Nasal Cannula Oxygen Flow Rate (L/min) 4 4 4 11/29/23 13:45 11/29/23 14:01 11/29/23 14:45 Temperature 97.2 F L 98 F Temperature Source Temporal Temporal Pulse Rate 83 83 82 Respiratory Rate 22 H 21 H 20 H Respiratory Effort Respiratory Pattern Blood Pressure 79/62 L 81/55 L 82/42 L Blood Pressure Mean 67 63 55 Pulse Ox 96 96 96 Oxygen Delivery Method Nasal Cannula Nasal Cannula Nasal Cannula Oxygen Flow Rate (L/min) 4 4 6 11/29/23 14:26 11/29/23 14:54 11/29/23 14:30 Temperature 96.8 F L Temperature Source Core Pulse Rate 81 84 Respiratory Rate 22 H 22 H Respiratory Effort Respiratory Pattern Blood Pressure 89/48 L 82/42 L 82/47 L Blood Pressure Mean 61 55 58 Pulse Ox 96 95 Oxygen Delivery Method Nasal Cannula Nasal Cannula Oxygen Flow Rate (L/min) 6 6 11/29/23 14:45 Temperature Temperature Source Pulse Rate 84 Respiratory Rate 25 H Respiratory Effort Respiratory Pattern Blood Pressure 82/42 L Blood Pressure Mean 55 Pulse Ox 95 Oxygen Delivery Method Nasal Cannula Oxygen Flow Rate (L/min) 6 Positive well nourished, well developed and obese General Appearance ED: well developed and NAD Nutritional Appearance: obese HEENT Reports dry mucous membranes Mouth ED: Yes dry mucous membranes Mouth: dry mucous membranes Neck supple and no JVD Resp normal respiratory effort and clear to auscultation bilaterally Cardio regular rate and regular rhythm GI non-tender and non-distended Palpation: soft Neuro oriented x3, CN's II-XII intact bilaterally and no sensory deficits noted Sensorium / Orientation: alert Motor Exam: general weakness MDM MDM MDM Narrative Medical decision making narrative: Differential diagnosis includes viral illness, dehydration, pneumonia, cardiac dysrhythmia, cardiac ischemia, electrolyte abnormality, urinary tract infection, sepsis, and anemia. CBC will be obtained to assess for leukocytosis and anemia. Comprehensive metabolic profile will be obtained to assess for hepatic function, renal function, and electrolyte abnormality. Urinalysis will be obtained to assess for urinary tract infection. High-sensitivity troponin will be obtained to assess for cardiac ischemia. Lactate will be obtained to assess for sepsis. Blood cultures will be obtained to assess for sepsis. Urine culture will be obtained to assess for urinary tract infection. EKG will be obtained to assess for cardiac dysrhythmia and cardiac ischemia. Chest x-ray will be obtained to assess for pneumonia. Lab Data Attestation: I reviewed the patient's lab results. Lab results narrative: CBC was reviewed. There is a leukocytosis of 21.6. There is a mild anemia with a hemoglobin of 11.6 and hematocrit 37.8. Comprehensive metabolic profile was reviewed. Potassium was low at 2.9. BUN was 34 and creatinine was 1.34. These were increased from previous results. Serum lactate was reviewed and was elevated at 3.1. PT with INR and PTT were reviewed. Pro time was 15.4 and INR is 1.2. PTT was 28.8. Urinalysis was reviewed. Leukocyte esterase was 500 with 10-25 white blood cells and 2+ bacteria. There were positive nitrites. Labs: Laboratory Results - last 24 hr 11/29/23 11/29/23 11:54 12:19 WBC 21.6 H RBC 3.79 L Hgb 11.6 L Hct 37.8 MCV 99.7 H MCH 30.6 MCHC 30.7 L RDW Std Deviation 53.1 H RDW Coeff of Sonya 14.5 Plt Count 270 MPV 11.0 Immature Gran % (Auto) 1.000 H Neut % (Auto) 94.0 H Lymph % (Auto) 1.0 L [place] % (Auto) 2.4 Eos % (Auto) 1.2 Baso % (Auto) 0.4 Absolute Neuts (auto) 20.3 H Absolute Lymphs (auto) 0.21 L Nucleated RBC % 0 Differential Comment SCANNED PT 15.4 H INR 1.2 APTT 28.8 Sodium 140 Potassium 2.9 L Chloride 105 Carbon Dioxide 29.0 Anion Gap 6 BUN 34 H Creatinine 1.34 H Estim Creat Clear Calc 42.98 Est GFR (MDRD) Af Amer 50 L Est GFR (MDRD) Non-Af 41 L BUN/Creatinine Ratio 25.4 H Glucose 106 Lactic Acid 3.1 H* Calcium 8.9 Total Bilirubin 0.90 AST 28 ALT 23 Alkaline Phosphatase 68 Troponin I High Sens 28 Total Protein 6.8 Albumin 2.8 L Globulin 4.0 Albumin/Globulin Ratio 0.7 L Urine Color Whit Urine Clarity Sl. Cloudy Urine pH 5.0 Ur Specific [place] 1.020 Urine Protein 100 H Urine Glucose (UA) Normal Urine Ketones 15 H Urine Occult Blood 25 H Urine Nitrite Positive H Urine Bilirubin 3 H Urine Urobilinogen 1 H Ur Leukocyte Esterase 500 H Urine RBC 0 SEEN Urine WBC 10-25 SEEN Ur Squamous Epith Cells 0 SEEN Urine Bacteria 2+ Urine Mucus 0 SEEN Radiography Diagnostic Testing: Clinical Impression(s) from Imaging Studies Chest X-Ray 11/29/23 12:50 IMPRESSION: Acute and chronic interstitial lung disease. Electronically Signed: Amandeep Miller MD at 13:44 EST , EKG Initial EKG: Attestation: I personally reviewed and interpreted this EKG as follows: Interpretation: Sinus Rhythm (83) and No Acute Injury Pattern Comments: EKG was obtained. On my independent interpretation, it showed a normal sinus rhythm with a rate of 83. [place] interval, QRS interval, and QTc intervals were all normal. [place] was normal. There are no acute ST or T wave changes. Prior EKG tracings: available for review Prior: Unchanged (10/11/2023) Follow-up EKG: Attestation: I personally reviewed and interpreted this EKG as follows: Interpretation: Sinus Rhythm (85) and No Acute Injury Pattern Comments: EKG was obtained. On my independent interpretation, it showed a normal sinus rhythm with a rate of 85. [place] interval, QRS interval, and QTc intervals were all normal. [place] was normal. There are no acute ST or T wave changes. Prior EKG tracings: available for review Prior: Unchanged Treatment and Re-Evaluation :: Patient was given IV fluids. Patient was advised of her findings. Patient was started on Zosyn and vancomycin. Patient was advised of the need for admission to the hospital. Patient's blood pressure did not improve after 3 L of normal saline which is 30 cc/kg bolus for her. Because of this, patient was started on Levophed. Because the patient was on Levophed, central line catheter was attempted. Patient was advised of the risks and benefits of central line placement. Patient is agreeable with this. The right internal jugular area was cleaned and prepped in a sterile manner. Sterile drapes were placed over the patient. 1% plain lidocaine was used to anesthetize the area. Using ultrasound guidance, I attempted cannulation of the right internal jugular vein without success. There is no aspiration of air. Patient was unable to tolerate further attempts. The central line was aborted. Case was discussed with the hospitalist. He will admit the patient to ICU. He will have PICC line placed. Repeat chest x-ray will be obtained to assess for pneumothorax. Patient understood and was agreeable with the plan. All questions were answered. Procedures Other Procedures Procedure(s): A right internal jugular central line was attempted. Patient was explained the risks and benefits. Patient was given the opportunity ask further questions. Patient had no further questions. The right internal jugular area was prepped and draped in a sterile manner. The area was anesthetized with 1% plain lidocaine locally. Using ultrasound guidance, I attempted to cannulate the right internal jugular vein without success. There is no aspiration of air. Patient was unable to tolerate further attempts. Because of this, the procedure was aborted. Repeat chest x-ray will be obtained to assess for pneumothorax. Patient tolerated procedure well. Critical Care Time Critical Care Time: Yes Critical care time (excluding procedures): 30-74 minutes (39), Including time spent:, Discussing w/Patient &/or Family/Bill Board Poster, Discussing w/Consultants, Arranging Admission or Transfer and Performing Direct Patient Care at Bedside Discharge Plan Triage Chief Complaint: General Illness ED Provider: Ruiz Tyson Dx/Rx/DC Orders Clinical Impression: Urinary tract infection, Septic shock, Hypotension Primary Care Provider: Pedro Williamson Disposition Disposition: Acute Care [facility]
--- NOTE | 2023-11-29 11:50 | EKG12_ITS ---
Test Reason : GENERAL Blood Pressure : / mmHG Vent. Rate : 083 BPM Atrial Rate : 083 BPM P-R Int : 158 ms QRS Dur : 082 ms QT Int : 398 ms P-R-T Axes : 027 026 018 degrees QTc Int : 467 ms Normal sinus rhythm Normal ECG Confirmed by Steve Scanlon ([id number]), editor managing newspaper BRIDGETT CRESPO ([id number]) on 12/01/2023 10:29:33 AM Referred By: Confirmed By:Steve Scanlon
[2023-11-29] MEDS: 0.9% Normal Saline (1000mL) 1,000 ML 1000 ML IV (12:00)
[2023-11-29 12:11] LABS: Absolute Lymphocyte Count 0.21 X10^3/uL (0.83-4.51); Absolute Neutrophil Count 20.3 X10^3/uL (2.0-7.7); Basophil# 0.08 X10^3/uL; Basophil% 0.4 % (0-1); Eosinophil# 0.25 X10^3/uL; Eosinophils% 1.2 % (0-5); Hematocrit 37.8 % (37-47); Hemoglobin 11.6 g/dL (12.0-15.0); Lymphocyte # 0.21 X10^3/ul (0.83-4.51); Mean Corp Hgb Conc 30.7 g/dL (32-36); Mean Corpuscular Hgb 30.6 pg (27.0-32.0); Mean Corpuscular Volume 99.7 fL (81-99); Monocyte# 0.52 X10^3/uL; Monocyte% 2.4 % (0-10); NRBC Flagged by Analyzer 0 % (0-5); Neutrophil # 20.32 X10^3/uL (2.7-7.7); POSITIVE DIFFERENTIAL YES; Platelet Count 270 K/mm3 (150-450); RBC Distribution Width CV 14.5 % (11.6-14.6); RBC Distribution Width SD 53.1 fl (35.1-43.9); Red Blood Count 3.79 M/mm3 (4.2-5.4); White Blood Count 21.6 K/mm3 (4.4-11.0)
[2023-11-29 12:16] LABS: Differential Indicated SCAN CRITERIA MET
[2023-11-29 12:28] LABS: ALB/GLOB Ratio 0.7 RATIO (0.9-2.4); AST(SGOT) 28 U/L (15-37); Alanine Aminotransfer ALT/SGPT 23 U/L (13-56); Albumin, Serum 2.8 g/dL (3.2-5.0); Alkaline Phosphatase 68 U/L (45-117); Anion Gap 6 (5-15); BUN 34 mg/dL (7-18); BUN/Creat Ratio 25.4 RATIO (10-20); Calcium,Total 8.9 mg/dL (8.5-10.1); Chloride 105 mmol/L (98-107); Creatinine, Serum 1.34 mg/dL (0.55-1.02); EST Glomerular Filtration Rate 41 mL/min (>60); Est Glom Filt Rate - Afr Amer 50 mL/min (>60); Estimated Creatinine Clearance 42.98 ml/min; Glucose 106 mg/dL (74-106); Potassium 2.9 mmol/L (3.5-5.1); Protein, Total 6.8 g/dL (6.4-8.2); Sodium Level 140 mmol/L (136-145); Troponin-I HS 28 pg/mL (3.0-54.0)
--- OUTSIDE RECORDS SUMMARY | 2023-11-29 12:28 | XMS RPT_ITS | CCD ---
Author Name Unknown Address [address] [place] [address] Organization [facility] Care Team Providers Care Residential Case Manager Name Role Phone Ira Rajput Primary Care Provider [phone] RIAN LECHUGA Attending Unavailable RIAN LECHUGA Primary Care Unavailable RIAN LECHUGA Admitting Unavailable Ira Rajput DO Primary Care Provider Sandeep BETANCUR Iradanielle Zambrano Primary Care Provid er Sandeep BETANCUR [place] Juan Manuel Primary Care Provid er Sandeep BETANCUR [place] Juan Manuel Primary Care Provid er [place]ENETTA RAJPUTLAND JUAN MANUEL Primary Care Scarlet RAJPUT [facility] Primary Care Scarlet RAJPUT CRAB ORCHARD JUAN MANUEL Attending Scarlet RAJPUT [facility] Primary Care Scarlet RAJPUT CRAB ORCHARD JUAN MANUEL Primary Care WALESKA Finley Referring [...] DULoxetine; Translations: [DULOXETINE] Drug Allergy 08-27-2018 Vomiting [facility] (18 sources) rofecoxib; Translations: [ROFECOXIB] Drug Allergy 11-13-2016 [facility] Medications Current Medications Medication Drug Class(es) Dates Sig (Normalized) Sig (Original) acetaminophen 500 mg oral tablet (2 sources) Start: 11-26-2019 End: 11-26-2019 acetaminophen (TYLENOL) tablet 1,000 mg Ahsltvi-Alffmttzb-Zft ortega D (CALCIUM 1200+D3 PO) (3 sources) [...] 17:50-0400 Body temperature 97.59 [degF] Waleska David APRN.RESISTANCE WELDER Work Phone: [facility] 04-15-2023 17:50-0400 Body weight 101.61 kg Waleska David APRN.RESISTANCE WELDER Work Phone: [facility] 04-15-2023 17:50-0400 Diastolic blood pressure 76 mm[Hg] Waleska David APRN.RESISTANCE WELDER Work Phone: [facility] 04-15-2023 17:50-0400 Heart rate 98 /min Waleska David VENEER JOINTER OFFBEARER.RESISTANCE WELDER Work Phone: [facility] 04-15-2023 17:50-0400 Respiratory rate 18 /min Waleska David APRN.RESISTANCE WELDER Work Phone: [facility] 04-15-2023 17:50-0400 SaO2% (BldA) [Mass fraction] 95 % Walesak David VENEER JOINTER OFFBEARER.RESISTANCE WELDER Work Phone: [facility] 04-15-2023 17:50-0400 Systolic blood pressure 144 mm[Hg] Waleska David APRN.RESISTANCE WELDER Work Phone: [facility] 04-18-2022 14:40-0400 Body height 162.6 cm Ira Sandeep DO Work Phone: [facility] 04-18-2022 14:40-0400 Body temperature 98.01 [degF] [place] Sandeep DO Work Phone: [facility] 04-18-2022 14:40-0400 Body weight 98.43 kg [place] Sandeep DO Work Phone: [facility] 04-18-2022 14:40-0400 Diastolic blood pressure 80 mm[Hg] [place] Sandeep DO Work Phone: [facility] 04-18-2022 14:40-0400 Heart rate 101 /min [place] Sandeep DO Work Phone: [facility] 04-18-2022 14:40-0400 SaO2% (BldA) [Mass fraction] 96 % [place] Sandeep DO Work Phone: [facility] 04-18-2022 14:40-0400 Systolic blood pressure 120 mm[Hg] [place] Sandeep DO Work Phone: [facility] 11-29-2019 10:05-0500 Body Temperature 97.59 [degF] [place], [place] 11-29-2019 10:05-0500 BP Diastolic 85 mm[Hg] [facility] [place] 11-29-2019 10:05-0500 BP Systolic 150 mm[Hg] [facility] [place] 11-29-2019 10:05-0500 Pulse (Heart Rate) 87 /min [facility] [place] 11-29-2019 10:05-0500 Pulse Oximetry 96 % [facility] [place] 11-29-2019 10:05-0500 Respiratory Rate 16 /min [facility] [place] 11-26-2019 09:25-0500 BMI (Body Mass Index) 39.55 kg/m2 Vic Brown [facility], [place] 11-26-2019 09:25-0500 Body weight 106.14 kg [facility] [address] [facility] , [place] 11-26-2019 09:25-0500 Height 163.[address] [facility] , [place] 11-19-2019 14:28-0500 Body Temperature 97.39 [degF] [facility] [place] 11-19-2019 14:28-0500 BP Diastolic 77 mm[Hg] [facility] [place] 11-19-2019 14:28-0500 BP Systolic 142 mm[Hg] [facility] [place] 11-19-2019 14:28-0500 Pulse (Heart Rate) 97 /min Vic Brown [facility], [place] 11-19-2019 14:28-0500 Pulse Oximetry 100 % [facility] [place] 11-19-2019 14:01-0500 BMI (Body Mass Index) 39.82 kg/m2 Vic Brown [facility], [place] 11-19-2019 14:01-0500 Body weight 105.23 kg [facility] [place] 11-19-2019 14:01-0500 Height 162.6 cm [facility] [place] 11-19-2019 14:01-0500 Respiratory Rate 16 /min Vic Brown [place], [place] Encounters Encounter Date Encounter Type Care Provider Facility Start: 08-03-2023 Refill [place] Lyric Rajput DO Work Phone: [facility] Medicine [place] Procedures Date Procedure Procedure Detail Performing Clinician Start: 04-16-2023 Dup-scan xtr veins unilateral/limited study Waleska David APRN.RESISTANCE WELDER Work Phone: Start: 04-18-2022 Adult depression scr eening assessment [facility] DO Work Phone: Start: 10-29-2021 Lipid 1996 panel - S sofia or Plasma [facility] DO Work Phone: Start: 05-10-2021 Mammography [place] O liverio DO Work Phone: Start: 10-20-2020 Adult depression scr eening assessment [place] Sandeep DO Work Phone: Start: 11-28-2019 BASIC METABOLIC PANE L W/ REFLEX TO MG FOR LOW K Magydiandra Tuttle Work Phone: Start: 11-27-2019 Blood count complete auto&auto difrntl wbc Magy Tuttle Work Phone: Start: 11-26-2019 OPERATIVE REPORT 3m Sca nning Start: 11-19-2019 Ecg routine ecg w/le ast 12 lds w/i&r Justen Dg [employer] Work Phone: Start: 11-19-2019 ADD ON LAB TEST Justen miner [employer] Work Phone: Start: 11-19-2019 Basic metabolic pane l calcium total Justen Dg [employer] Work Phone: Start: 11-19-2019 Blood count complete automated Justen Dg [employer] Work Phone: Start: 11-19-2019 Blood typing serologic abo Justen Dg [employer] Work Phone: Start: 11-19-2019 Hemoglobin glycosyla gilberto a1c Justen Dg [employer] Work Phone: Plan of Treatment Date Care Activity Detail Author Start: 10-29-2026 Lipid 1996 panel - S sofia or Plasma Lipid Screening [facility] Start: 10-29-2026 LIPID SCREEN LIPID SCREEN [facility] Start: 04-29-2026 Diabetes Screening Diabetes Screenin g [facility] Start: 10-07-2025 DIABETES SCREEN DIABETES SCREEN [facility] Start: 10-29-2024 DIABETES SCREEN DIABETES SCREEN [facility] Start: 10-07-2023 ANNUAL PCP TEAM PRECISION OPTICS TECHNICIAN PREETHI DISEASE VISIT ANNUAL PCP TEAM CHRONIC DISEASE VISIT [facility] Start: 05-30-2023 Covid-19 Vaccine () Covid-19 Vaccine () [facility] Start: 05-30-2023 Influenza vaccination C [facility] Start: 04-18-2023 Adult depression scr eening assessment DEPRESSION SCREENING [facility] Start: 04-18-2023 ANNUAL PCP TEAM PRECISION OPTICS TECHNICIAN PREETHI DISEASE VISIT ANNUAL PCP TEAM CHRONIC DISEASE VISIT [facility] Start: 10-19-2022 ANNUAL PCP TEAM PRECISION OPTICS TECHNICIAN PREETHI DISEASE VISIT ANNUAL PCP TEAM CHRONIC DISEASE VISIT [facility] Start: 10-19-2022 BP CONTROLLED (<130/80) BP CONTROLLE D (<130/80) [facility] Start: 09-29-2022 ADVANCE DIRECTIVE DISCUSSION ADVANCE DIRECTIVE DISCUSSION [facility] Start: 09-29-2022 DEPRESSION ASSESSMENT DEPRESSION ASS ESSMENT [facility] Start: 05-30-2022 Influenza vaccination INFLUENZA (#1) [facility] Start: 05-10-2022 Mammography [facility] Start: 04-25-2022 COVID-19 VACCINE (5 - Booster for Pfizer series) COVID-19 VACCINE (5 - Booster for Pfizer series) [facility] Start: 04-19-2022 BONE DENSITY BONE DENSITY [facility] Immunizations Immunization Date Immunization Notes Care Provider Cydney orozco 10-08-2022 influenza virus vaccine, unspecified formulation Ira Sandeep DO Work Phone: [facility] 10-11-2021 influenza, high dose seasonal, preservative-free [place] Sandeep DO Work Phone: [facility] 10-11-2021 Influenza, injectabl e, Madin Francisca Canine Kidney, preservative free, quadrivalent [place] Sandeep DO Work Phone: [facility] 11-29-2019 influenza, injectabl e, quadrivalent, preservative free Vic Keaton [facility] 11-29-2019 influenza quadrivale nt split vaccine (FLUZONE;FLUARIX;FLULAV AL;AFLURIA) injection 0.5 mL [place], [place] 11-15-2015 pneumococcal conjuga te vaccine, 13 valent [place] Sandeep DO Work Phone: [facility] 09-06-2015 influenza, seasonal, injectable [place] Sandeep DO Work Phone: [facility] 09-06-2015 influenza, seasonal, injectable, preservative free Ira Sandeep DO Work Phone: [facility] 07-29-2015 influenza, seasonal, injectable, preservative free Ira Sandeep DO Work Phone: [facility] 11-29-2014 poliovirus vaccine, inactivated [place] Sandeep DO Work Phone: [facility] Payers Date Payer Category Payer Medicare UHC MEDICARE UHC MEDICARE ADVANTAGE O [id number] 2021-Present [phone] [address] [address] [place] [address] O [id number] 2021 Medicare [id number] 2021 Unknown [id number] 2016 Medicare MEDICARE MEDICAR E PART A AND B xxxxxxxxxxx 2016-Present [phone] [place] [address] xxxxxxxxxxx [id number] 2016 Medicare MEDICARE MEDICAR E A AND B [id number] 2016-[address] [place] [address] Medicare [id number] 1959 Medicare [id number] 1950 Unknown [id number] Social History Date Type Detail Facility Start: 10-14-2019 End: 11-19-2019 Tobacco smoking status NHIS Current some day smoker [facility] Work Phone: History of tobacco use Cigarette Smoker [facility] Work Phone: Start: 11-19-2019 End: 10-13-2022 Cigarettes smoked current (pack per day) - Reported [facility] Start: 10-14-2019 End: 11-19-2019 Alcohol intake [facility]finding[facility]: Start: 10-14-2019 History SDOH Alcohol Frequency 2 [facility] Work Phone: Start: 10-14-2019 Alcohol Comment once every 2-3 yrs [facility] Work Phone: Start: 1950 Sex Assigned At Not on file [facility] Work Phone: Start: 11-13-2016 End: 10-07-2022 Tobacco smoking status NHIS Smokes tobacco daily [facility] Work Phone: Start: 11-13-2016 End: 10-07-2022 Tobacco use and exposure Smokeless tobacco non-user [facility] Work Phone: Start: 10-20-2020 End: 04-15-2023 Alcohol intake Current non-drinker of alcohol (finding) [facility] Start: 11-13-2016 Tobacco Comment 5 cigs per day [facility] Start: 09-29-2021 End: 04-18-2022 Exposure to SARS-CoV-2 (event) Not sure [facility] Start: 04-18-2022 End: 10-07-2022 Tobacco Comment 1-2 cigs per day [facility] Start: 10-13-2022 End: 04-15-2023 Tobacco use panel [facility] Adult Depression Screening Assessment 3 [facility] Start: 2021 Gender identity Identifies as female gender (finding) [facility] Start: 2021 Sexual orientation Heterosexual (fin ding) [facility] Medical Equipment Procedure Code Equipment Code Equipment Origin al Text Equipment Identifier Dates Graft Infuse 18m m Large Ii Bovine Collagen Rhbmp-2 26mm Bone Absorbable - [id number] Start: 11-21-2016 Clinical Notes 10-08-2021 to [...] note to pharmacy documented in this encounter [facility] 04-15-2023 Note HNO ID: [id number] Author: Waleska David APRN.MAI Service: ? Author [...] Take 8.6 mg by mouth twice daily. [place]-3 Fatty Acids-Vitamin E 1,000 mg cap Take [...] US DVT LOWER LEFT Waleska David APRN.MAI [facility] 04-15-2023 History of Present illness Narrative [...] Take 8.6 mg by mouth twice daily. [place]-3 Fatty Acids-Vitamin E 1,000 mg cap Take [...] - US DVT LOWER LEFT Waleska David APRN.RESISTANCE WELDER documented in this encounter [facility] 03-25-2023 Miscellaneous Notes Pharmacy faxed requesting the following refill Refill(s) Requested: Requested Prescriptions Pending Prescriptions Disp Refills lansoprazole (PREVACID) 30 mg capsule [Pharmacy Med Name: LANSOPRAZOLE DR 30 MG CAPSULE] 90 capsule 0 Sig: take 1 capsule by mouth once daily ALLERGIES Allergen Reactions Vioxx [Rofecoxib] Swelling Pregabalin Unknown, Swelling Other reaction(s): leg swelling Duloxetine Vomiting Other reaction(s): vomiting Erythromycin Unknown (home) [phone] (cell) Last Office Visit Date: 10/07/2022 Last [facility] Health Visit: Visit date not found Future Appointment: Visit date not found The patients preferred pharmacy has been captured for this encounter? yes Request is for script(s) to be escript to pharmacy. Marilu Barnes LPN documented in this encounter [facility] 01-22-2023 Miscellaneous Notes Call pharm for refills documented in this encounter [facility] 01-21-2023 Miscellaneous Notes Patient MyChart message requesting the following refill Refill(s) Requested: Requested Prescriptions Pending Prescriptions Disp Refills fluconazole (DIFLUCAN) 150 mg tablet 3 tablet 0 Sig: Take 1 tablet by mouth once daily. ALLERGIES Allergen Reactions Vioxx [Rofecoxib] Swelling Pregabalin Unknown, Swelling Other reaction(s): leg swelling Duloxetine Vomiting Other reaction(s): vomiting Erythromycin Unknown (home) [phone] (cell) Last Office Visit Date: 10/07/2022 Last [facility] Visit: Visit date not found Future Appointment: Visit date not found The patients preferred pharmacy has been captured for this encounter? yes Request is for script(s) to be escript to pharmacy. Marilu Barnes LPN documented in this encounter [facility] 12-25-2022 Miscellaneous Notes Pharmacy faxed requesting the following refill Refill(s) Requested: Requested Prescriptions Pending Prescriptions Disp Refills hydroCHLOROthiazide 25 mg tablet [Pharmacy Med Name: HYDROCHLOROTHIAZIDE 25 MG TAB] 90 tablet 1 Sig: take 1 tablet by mouth once daily ALLERGIES Allergen Reactions Vioxx [Rofecoxib] Swelling Pregabalin Unknown, Swelling Other reaction(s): leg swelling Duloxetine Vomiting Other reaction(s): vomiting Erythromycin Unknown (home) [phone] (cell) Last Office Visit Date: 10/07/2022 Last [facility] Visit: Visit date not found Future Appointment: Visit date not found The patients preferred pharmacy has been captured for this encounter? yes Request is for script(s) to be escript to pharmacy. Ofelia Hodge LPN documented in this encounter [facility] 12-24-2022 Miscellaneous Notes Pharmacy faxed requesting the following refill Refill(s) Requested: Requested Prescriptions Pending Prescriptions Disp Refills lansoprazole (PREVACID) 30 mg capsule [Pharmacy Med Name: LANSOPRAZOLE DR 30 MG CAPSULE] 90 capsule 0 Sig: take 1 capsule by mouth once daily ALLERGIES Allergen Reactions Vioxx [Rofecoxib] Swelling Pregabalin Unknown, Swelling Other reaction(s): leg swelling Duloxetine Vomiting Other reaction(s): vomiting Erythromycin Unknown (home) [phone] (cell) Last Office Visit Date: 10/07/2022 Last [facility] Health Visit: Visit date not found Future Appointment: Visit date not found The patients preferred pharmacy has been captured for this encounter? yes Request is for script(s) to be escript to pharmacy. Marilu Barnes LPN documented in this encounter [facility] 10-07-2022 Note HNO ID: [id number] Author: Ira Rajput DO Service: ? Author Type: Physician Type: Progress Notes Filed: 10/13/2022 12:52 PM Note Text: [facility] Medicine [place] Rajput DO [address] [place] [address] Date of Evaluation: 10/07/2022 Patient Name: Lucrecia Roberto : 1950 Chief Complaint: Patient presents with: 6 Month Exam Hypertension frequent yeast infections Nursing Intake: There are no exam notes on file for this visit. Subjective Ms. Roberto is a 72 year old female who presents with the following complaint(s): The history is provided by the patient. No spanish language lecturer was used. Hypertension This is a chronic [...] Take 8.6 mg by mouth twice daily. [place]-3 Fatty Acids-Vitamin E 1,000 mg cap Take [...] Vomiting Other reaction(s): vomiting Erythromycin Unknown (home) [phone] (cell) Last Office Visit Date: 04/18/2022 Last [facility] Health Visit: Visit date not found Future Appointment: Visit date not found The patients preferred pharmacy has been captured for this encounter? yes Request is for script(s) to be escript to pharmacy. Ofelia Hodge LPN documented in this encounter [facility] 04-18-2022 History of Present illness Narrative Images from the original note were not included. [facility] Medicine [facility] [address] [place] [address] Date of Evaluation: 04/18/2022 Patient Name: Lucrecia [...] by mouth every 6 hours as needed. [place]-3 Fatty Acids-Vitamin E (FISH OIL) 1,000 mg [...] 2022 3:05 PM. documented in this encounter [facility] 01-03-2022 Miscellaneous Notes Pharmacy faxed requesting the following refill Refill(s) Requested: Pending Prescriptions Disp Refills HYDROCHLOROTHIAZIDE 25 MG TABLET 90 tablet 3 Sig: take 1 tablet by mouth once daily LUZ: Yes ALLERGIES Allergen Reactions Vioxx [Rofecoxib] Swelling Pregabalin Unknown, Swelling Other reaction(s): leg swelling Duloxetine Vomiting Other reaction(s): vomiting Erythromycin Unknown (home) [phone] (cell) Last Office Visit Date: 10/19/2021 Last [facility] Health Visit: Visit date not found Future Appointment: 04/18/2022 The patients preferred pharmacy has been captured for this encounter? yes Request is for script(s) to be escript to pharmacy. Cathi Nolen LPN documented in this encounter [facility] 01-02-2022 Miscellaneous Notes Patient updated. Script sent diverticulitis documented in this encounter [facility] 10-08-2021 Miscellaneous Notes Pharmacy faxed requesting the [...] Vomiting Other reaction(s): vomiting Erythromycin Unknown (home) [phone] (cell) Last Office Visit Date: 04/19/2021 Last [facility] Health Visit: Visit date not found Future Appointment: 10/19/2021 The patients preferred pharmacy has been captured for this encounter? yes Request is for script(s) to be escript to pharmacy. Ofelia Hodge LPN documented in this encounter [facility] documented in this encounter [facility] Work Phone: Evaluation note* Diagnosis Gastroesophageal reflux disease, unspecified whether esophagitis present Essential hypertension Unspecified essential hypertension documented in this encounter [facility] note* Diagnosis Essential hypertension Unspecified essential hypertension documented in this encounter [facility] note* Diagnosis Primary hypertension- Primary Unspecified essential hypertension Gastroesophageal reflux disease without esophagitis Esophageal reflux Psoriasis Other psoriasis Seasonal allergies Allergic rhinitis, cause unspecified documented in this encounter [facility] note* Diagnosis Gastroesophageal reflux disease, unspecified whether esophagitis present documented in this encounter [facility] note* Diagnosis Gastroesophageal reflux disease, unspecified whether esophagitis present documented in this encounter [facility] note* Diagnosis Essential hypertension Unspecified essential hypertension documented in this encounter [facility] note* Diagnosis Vaginal yeast infection Candidiasis of vulva and vagina documented in this encounter [facility] note* Diagnosis Leg swelling- Primary Swelling of limb documented in this encounter [facility] note* Diagnosis Leg swelling Swelling of limb documented in this encounter [facility] note* Diagnosis Gastroesophageal reflux disease, unspecified whether esophagitis present documented in this encounter [facility] for referral (narrative)* Diagnostic Procedure Only (Urgent) - Pending Review Specialty Diagnoses / Procedures Referred By Alvarez lord Referred To Contact US IMAGING Diagnoses Leg swelling Procedures US DVT LOWER LEFT DUP-SCAN XTR VEINS UNILATERAL/LIMITED STUDY Waleska David APRN.RESISTANCE WELDER [address] [place] [address] Us Imaging Referral ID Status Reason Start Date Expiration Date Visits Requested Visits Authorized [id number] Pending Review Auto-Generat ed Referral 04/15/2023 05/14/2024 1 1 [facility] for referral (narrative)* Diagnostic Procedure Only (Urgent) - Closed Specialty Diagnoses / Procedures Referred By Contac t Referred To Contact US IMAGING Diagnoses Leg swelling Procedures US DVT LOWER LEFT DUP-SCAN XTR VEINS UNILATERAL/LIMITED STUDY Waleska David APRN.RESISTANCE WELDER [address] [place] [address] Us Imaging Referral ID Status Reason Start Date Expiration Date V isits Requested Visits Authorized [id number] Closed Auto-Generate d Referral 04/15/2023 05/14/2024 1 1 [facility] for visit Narrative* Diagnostic Procedure Only (Urgent) - Closed Specialty Diagnoses / Procedures Referred By Contac t Referred To Contact US IMAGING Diagnoses Leg swelling Procedures US DVT LOWER LEFT DUP-SCAN XTR VEINS UNILATERAL/LIMITED STUDY Waleska David APRN.RESISTANCE WELDER [address] [place] [address] Us Imaging Referral ID Status Reason Start Date Expiration Date V isits Requested Visits Authorized [id number] Closed Auto-Generate d Referral 04/15/2023 05/14/2024 1 1 [facility] Discharge Instructions * Instructions* Radha Khan RN [...] Your home care will be provided by: [facility] [phone] * Additional Instructions* Gualberto Foley PA-C - [...] Documents on File Type Date Recorded Patient Chemical Plant Operator Supervisor Expl anation Advance Directives and Living Will Power of Apple Packing Header Latest Code Status on File Code Status Date Activated Date Inactivated Comments Full Code 11/26/2019 3:15 PM Full Code 11/26/2019 9:21 AM 11/26/2019 3:01 PM Documents on File Type Date Recorded Patient Chemical Plant Operator Supervisor Expl anation Advance Directives and Living Will Power of Apple Packing Header Summary Purpose Family History No Family History [...] stable condition and then to [facility]. They received 24 hours of prophylactic [...] d/c to home today. * Trang Hair, VENEER JOINTER OFFBEARER - RESISTANCE WELDER - 11/28/2019 1:07 PM EST 11/28/2019 Referring [...] GERD (gastroesophageal reflux disease) High blood pressure [place] (hard of hearing) BOTH EARS AND NO [...] Problem List Diagnosis Spondylolisthesis of lumbar region PAPER TESTING SUPERVISOR: None Pain Management Adjuvants: Acetaminophen 1,000 mg Lidoderm patch Tizanidine Hydromorphone PRN- 1 mg used 11/26 Oxycodone PRN - 40 mg used Assessment: 1. Acute pain s/p L5 decompression and fusion. 2. Chronic pain 3. Opioid Tolerant/Dependent- prescribed [place] Pain Management Plan: -Acetaminophen 1,000 mg TID [...] Acute Pain Service is available by pager #[phone] Friday-Friday [phone]. For questions oracute issues after hours, please contact hospital front end loader operator for name and pager number of the Pain ManagementProvider AESTHETICS INSTRUCTOR. [facility] has agreed to see our patients after they are discharged. Patients should be instructed to call [phone]. Please ask patient to sign a medical release andsend medical records to [facility].They will contact the patient with an appointment time. * Robyn Wagner DTR - 11/28/2019 12:01 PM EST Nutrition rescreen completed. Chart reviewed. Patient to be monitored and followed by the diet chemical engineering technician. * Bishnu Viveros MD - 11/28/2019 [...] Hypertension 3. Psoriatic arthritis 4. GERD 5. SEL[place]IK both ears no hearing aid 6. obesity Bp controlled and stable, Continue losartan HCTZ and pepcid Monitor BP Pain control and SCD's, PT will follow Diagnosis Date Arthritis Constipation Diverticulitis GERD (gastroesophageal reflux disease) High blood pressure [place] (hard of hearing) BOTH EARS AND NO [...] 11/27/2019 2:33 PM EST Physical Therapy Facility/Department: [facility] Initial Assessment NAME: Lucrecia Roberto [...] GERD (gastroesophageal reflux disease), High blood pressure, [place] (hard of hearing), PONV (postoperative nausea and vomiting), Renal cyst, and Sciatic nerve pain. has a past surgical history that includes back surgery (2017); [place] tooth extraction; Appendectomy; Foot surgery (Right); Colonoscopy; [...] Ambulation Assistance: Independent Transfer Assistance: Independent Active Chief Embalmer: Yes Mode of Transportation: Car Objective AROM [...] 9:53 AM EST Lucrecia Roberto was ordered [id number] D. Per [facility] Policy #4005, herbals and certain dietary [...] aware of patient's bed assignment to , 5127. documented in this encounter Assessments Diagnosis Spondylolisthesis of lumbar region- Primary Acquired spondylolisthesis Reason for Referral Status Reason Specialty Diagnoses / Procedures Referre d By Contact Referred To Contact Closed Radiology Diagnoses Lumbar stenosis with neurogenic claudication Procedures MRI Lumbar Spine WO Contrast Vci Pugh MD [address] [place] [address] Additional Source Comments INFORMATION SOURCE (unrecogn ized section and content) DATE CREATED AUTHOR AUTHOR'S ORGANIZ ATION 11/30/2019 [facility] DATE CREATED AUTHOR AUTHOR'S ORGANIZ ATION 12/13/2019 [facility] DATE CREATED AUTHOR AUTHOR'S ORGANIZ ATION 12/17/2020 [facility] DATE CREATED AUTHOR AUTHOR'S ORGANIZ ATION 05/01/2023 [facility] DATE CREATED AUTHOR AUTHOR'S ORGANIZ ATION 07/09/2023 [facility] Source Comments (unrecognize d section and content) In the event this informatio n is protected by the Federal Confidentiality of Alcohol and Drug Abuse Patient Records regulations: The Federal rules restrict any use of the information to criminally investigate or prosecute any alcohol or drug abuse patient.[facility] the event this information is protected by the Federal Confidentiality of Alcohol and Drug Abuse Patient Records regulations: The Federal rules restrict any use of the information to criminally investigate or prosecute any alcohol or drug abuse patient.[facility] the event this information is protected by the Federal Confidentiality of Alcohol and Drug Abuse Patient Records regulations: The Federal rules restrict any use of the information to criminally investigate or prosecute any alcohol or drug abuse patient.[facility] the event this information is protected by the Federal Confidentiality of Alcohol and Drug Abuse Patient Records regulations: The Federal rules restrict any use of the information to criminally investigate or prosecute any alcohol or drug abuse patient.[facility] the event this information is protected by the Federal Confidentiality of Alcohol and Drug Abuse Patient Records regulations: The Federal rules restrict any use of the information to criminally investigate or prosecute any alcohol or drug abuse patient.[facility] the event this information is protected by the Federal Confidentiality of Alcohol and Drug Abuse Patient Records regulations: The Federal rules restrict any use of the information to criminally investigate or prosecute any alcohol or drug abuse patient.[facility] HospitalIn the event this information is protected by the Federal Confidentiality of Alcohol and Drug Abuse Patient Records regulations: The Federal rules restrict any use of the information to criminally investigate or prosecute any alcohol or drug abuse patient.[facility] HospitalIn the event this information is protected by the Federal Confidentiality of Alcohol and Drug Abuse Patient Records regulations: The Federal rules restrict any use of the information to criminally investigate or prosecute any alcohol or drug abuse patient.[facility] HospitalIn the event this information is protected by the Federal Confidentiality of Alcohol and Drug Abuse Patient Records regulations: The Federal rules restrict any use of the information to criminally investigate or prosecute any alcohol or drug abuse patient.[facility] HospitalIn the event this information is protected by the Federal Confidentiality of Alcohol and Drug Abuse Patient Records regulations: The Federal rules restrict any use of the information to criminally investigate or prosecute any alcohol or drug abuse patient.[facility] HospitalIn the event this information is protected by the Federal Confidentiality of Alcohol and Drug Abuse Patient Records regulations: The Federal rules restrict any use of the information to criminally investigate or prosecute any alcohol or drug abuse patient.[facility] HospitalIn the event this information is protected by the Federal Confidentiality of Alcohol and Drug Abuse Patient Records regulations: The Federal rules restrict any use of the information to criminally investigate or prosecute any alcohol or drug abuse patient.[facility] HospitalIn the event this information is protected by the Federal Confidentiality of Alcohol and Drug Abuse Patient Records regulations: The Federal rules restrict any use of the information to criminally investigate or prosecute any alcohol or drug abuse patient.[facility] HospitalIn the event this information is protected by the Federal Confidentiality of Alcohol and Drug Abuse Patient Records regulations: The Federal rules restrict any use of the information to criminally investigate or prosecute any alcohol or drug abuse patient.[facility] HospitalIn the event this information is protected by the Federal Confidentiality of Alcohol and Drug Abuse Patient Records regulations: The Federal rules restrict any use of the information to criminally investigate or prosecute any alcohol or drug abuse patient.[facility] HospitalIn the event this information is protected by the Federal Confidentiality of Alcohol and Drug Abuse Patient Records regulations: The Federal rules restrict any use of the information to criminally investigate or prosecute any alcohol or drug abuse patient.[facility] Reason for Visit (unrecogniz ed section and [...] Care Teams (unrecognized sec tion and content) Residential Case Manager Relationship Specialty Start Date End Date Ira Rajput DO PCP - General Family Practice 01/17/16 Residential Case Manager Relationship Specialty Start Date End Date Ira Rajput DO PCP - General Family Practice 01/17/16 Residential Case Manager Relationship Specialty Start Date End Date Ira Rajput DO PCP - General Family Practice 01/17/16 Residential Case Manager Relationship Specialty Start Date End Date Ira Rajput DO PCP - General Family Practice 01/17/16 Residential Case Manager Relationship Specialty Start Date End Date Ira Rajput DO PCP - General Family Medicine 01/17/16 Residential Case Manager Relationship Specialty Start Date End Date Ira Rajput DO PCP - General Family Medicine 01/17/16 Residential Case Manager Relationship Specialty Start Date End Date Ira Rajput DO PCP - General Family Medicine 01/17/16 Residential Case Manager Relationship Specialty Start Date End Date Ira Rajput DO PCP - General Family Medicine 01/17/16 Residential Case Manager Relationship Specialty Start Date End Date Ira Rajput DO PCP - General Family Medicine 01/17/16 Residential Case Manager Relationship Specialty Start Date End Date Ira Rajput DO PCP - General Family Medicine 01/17/16 Residential Case Manager Relationship Specialty Start Date End Date Ira [...] BE BASED ON THE PRIMARY CLINICAL RECORDS. [employer] [facility]. provides no warranty or guarantee of the accuracy or completeness of information in this document.
[2023-11-29 12:33] LABS: Mucous, Urine 0 SEEN /hpf (<or=2+); Red Blood Cells-Urine 0 SEEN /hpf (0-5); Squamous Epithelial Cells - UA 0 SEEN /hpf (5-10)
[2023-11-29 12:35] LABS: International Normalized Ratio 1.2; Prothrombin Time (Protime)PT. 15.4 SECONDS (11.7-14.9)
[2023-11-29 12:35] LABS: Color, Urine Amber (Yellow); Glucose, Dipstick Normal (Normal); Ketone-Dipstick 15 mg/dl (Negative); Leukocyte Esterase-Dipstick 500 /ul (Negative); Nitrite-Dipstick Positive (Negative); Occult Blood-Urine 25 /ul (Negative); Protein-Dipstick 100 mg/dl (Negative); Urine Clarity Sl. Cloudy (Clear); Urine Urobilinogen 1 mg/dl (Normal)
[2023-11-29 12:36] LABS: Partial Thromboplast Time 28.8 Seconds (24.1-36.2)
[2023-11-29 12:40] LABS: Urine Bilirubin Dipstick 3 mg/dL (Negative)
[2023-11-29 12:43] LABS: Lactic Acid 3.1 mmol/L (0.4-1.9)
[2023-11-29 12:46] LABS: Bacteria 2+ /hpf (None Seen); White Blood Cells 10-25 SEEN /hpf (0-5)
[2023-11-29 12:47] LABS: Differential Comment SCANNED
--- NOTE | 2023-11-29 12:50 | RAD_ITS ---
EXAM: XR CHEST, 2 VIEWS CLINICAL INDICATION: Fever TECHNIQUE: Frontal and lateral views of the chest. COMPARISON: XR Chest dated 10/12/2023 FINDINGS: LUNGS AND PLEURAL SPACES: Increasing interstitial densities throughout both lungs which may represent acute and chronic inflammatory lung disease/pulmonary edema. HEART: Stable normal heart size. MEDIASTINUM: No mediastinal or hilar mass. BONES/JOINTS: No acute abnormality. RAD/Chest PA and Lateral IMPRESSION: Acute and chronic interstitial lung disease. Electronically Signed: Amandeep Miller MD at 13:44 EST ,
[2023-11-29] MEDS: 0.9% Normal Saline (1000mL) 1,000 ML 999 ML IV ×3 (13:30→13:57)
[2023-11-29] MEDS: Piperacil/Tazobactam 4.5 GM in 0.9% Normal Saline (100mL MB+) 100 ML IV (13:30)
--- NOTE | 2023-11-29 13:33 | EKG12_ITS ---
Test Reason : CP Blood Pressure : / mmHG Vent. Rate : 085 BPM Atrial Rate : 085 BPM P-R Int : 160 ms QRS Dur : 084 ms QT Int : 410 ms P-R-T Axes : 032 062 030 degrees QTc Int : 487 ms Normal sinus rhythm ST & T wave abnormality, consider anterolateral ischemia Abnormal ECG Confirmed by Steve Scanlon ([id number]), video editor BRIDGETT CRESPO ([id number]) on 12/01/2023 10:29:06 AM Referred By: Confirmed By:Steve Scanlon
[2023-11-29] MEDS: Vancomycin HCl 2,000 MG in 0.9% Normal Saline (500mL Bag) 500 ML 250 MG IV (13:56)
--- NOTE | 2023-11-29 14:55 | ED.RN ---
1420- PT RINGS CALL LIGHT ANDS REPORTS THE NEED TO URINATE. THIS RN AT BEDSIDE TO PLACE PT ON BEDPAN REQUESTED. THIS RN OFFERED A PUREWICK AND PROVIDED EDUCATION AND PT DECLINED REQUESTING BED DAVIS. PT GIVEN CALL LIGHT ANDS INSTRUCTED TO RING WHEN FINISHED SHE HAD REQUESTED PRIVACY. PT URINATES AND RINGS CALL LIGHT WHEN COMPLETE. THIS RN RETURNS TO BEDSIDE TO REMOVES BED DAVIS, PT CLEANED WITH BATH WIPES AND MOVED UP IN THE BED. PT GIVEN WARM BLANKET REQUESTED. PT BP CUFF READJUSTED AND NOTED TO HAVE A BP 82/49. DR. DURÁN INFORMED. PT REMAINS HYPOTENSIVE AFTER FLUID BOLUS COMPLETED AND ORDERS ALREADY PLACED FOR LEVOPHED. DR. DURÁN ASKS FOR CENTRAL LINE SET UP. THIS RN GATHERS ALL NECESSARY SUPPLIES REQUESTED. DR. DURÁN INFORMED. PT REPORTS NEED TO URINATE A SECOND TIME AT 1445. DR. DURÁN GIVES THIS RN VERBAL ORDERS FOR TEMPERATURE JOHNSTON PLACEMENT. JOHNSTON PLACED, PROPERLY SECURED TO RIGHT THIGH AND DRAINING CLEAR PALE URINE. PT TOLERATED WELL. PT FAMILY RETURNS TO BEDSIDE.
[2023-11-29] MEDS: Ondansetron 4 MG/2 ML Vial IV (15:05)
[2023-11-29] MEDS: fentaNYL 100 MCG/2 ML Ampul 50 MCG IV (15:05)
--- NOTE | 2023-11-29 15:14 | ED.RN ---
DR. DURÁN AT BEDSIDE FOR CENTRAL LINE PLACEMENT. SON ASSISTED TO WAITING ROOM FOR STERILE PROCEDURE. PT POSITIONED IN [place].
--- OUTSIDE RECORDS SUMMARY | 2023-11-29 15:21 | XMS RPT_ITS | CCD ---
Author Name Unknown Address [address] [place] [address] Organization [facility] Care Team Providers Care Machine I Engraver Name Role Phone Ira Rajput Primary Care Provider [phone] RIAN LECHUGA Attending Unavailable RIAN LECHUGA Primary Care Unavailable RIAN LECHUGA Admitting Unavailable Ira Rajput DO Primary Care Provider Sandeep BETANCUR Iradanielle Zambrano Primary Care Provid er Sandeep BETANCUR Windom Juan Manuel Primary Care Provid er Sandeep BETANCUR Wind[place] Juan Manuel Primary Care Provid er [place] RAJPUTLAND JUAN MANUEL Primary Care Scarlet RAJ[facility] Primary Care Scarlet RAJPUT [place]UEL Attending Scarlet RA[facility] Primary Care Scarlet RAJPUT [place]AN MANUEL Primary Care WALESKA Finley Referring [...] DULoxetine; Translations: [DULOXETINE] Drug Allergy 08-27-2018 Vomiting [facility] (18 sources) rofecoxib; Translations: [ROFECOXIB] Drug Allergy 11-13-2016 [facility] Medications Current Medications Medication Drug Class(es) Dates Sig (Normalized) Sig (Original) acetaminophen 500 mg oral tablet (2 sources) Start: 11-26-2019 End: 11-26-2019 acetaminophen (TYLENOL) tablet 1,000 mg Xbnobae-Ytrqynltb-Xkd ortega D (CALCIUM 1200+D3 PO) (3 sources) [...] 17:50-0400 Body temperature 97.59 [degF] Waleska David APRN.SMOKE CONTROL SUPERVISOR Work Phone: [facility] 04-15-2023 17:50-0400 Body weight 101.61 kg Waleska David APRN.SMOKE CONTROL SUPERVISOR Work Phone: [facility] 04-15-2023 17:50-0400 Diastolic blood pressure 76 mm[Hg] Waleska David APRN.SMOKE CONTROL SUPERVISOR Work Phone: [facility] 04-15-2023 17:50-0400 Heart rate 98 /min Waleska David MANAGEMENT MANAGER.SMOKE CONTROL SUPERVISOR Work Phone: [facility] 04-15-2023 17:50-0400 Respiratory rate 18 /min Waleska David APRN.SMOKE CONTROL SUPERVISOR Work Phone: [facility] 04-15-2023 17:50-0400 SaO2% (BldA) [Mass fraction] 95 % Waleska David MANAGEMENT MANAGER.SMOKE CONTROL SUPERVISOR Work Phone: [facility] 04-15-2023 17:50-0400 Systolic blood pressure 144 mm[Hg] Waleska David APRN.SMOKE CONTROL SUPERVISOR Work Phone: [facility] 04-18-2022 14:40-0400 Body height 162.6 cm Ira Sandeep DO Work Phone: [facility] 04-18-2022 14:40-0400 Body temperature 98.01 [degF] Windom Sandeep DO Work Phone: [facility] 04-18-2022 14:40-0400 Body weight 98.43 kg Windom Sandeep DO Work Phone: [facility] 04-18-2022 14:40-0400 Diastolic blood pressure 80 mm[Hg] Windom Sandeep DO Work Phone: [facility] 04-18-2022 14:40-0400 Heart rate 101 /min Windom Sandeep DO Work Phone: [facility] 04-18-2022 14:40-0400 SaO2% (BldA) [Mass fraction] 96 % Windom Sandeep DO Work Phone: [facility] 04-18-2022 14:40-0400 Systolic blood pressure 120 mm[Hg] Windom Sandeep DO Work Phone: [facility] 11-29-2019 10:05-0500 Body Temperature 97.59 [degF] [place], [place] 11-29-2019 10:05-0500 BP Diastolic 85 mm[Hg] [facility] [place] 11-29-2019 10:05-0500 BP Systolic 150 mm[Hg] [facility] [place] 11-29-2019 10:05-0500 Pulse (Heart Rate) 87 /min [facility] [place] 11-29-2019 10:05-0500 Pulse Oximetry 96 % Vic [facility] [place] 11-29-2019 10:05-0500 Respiratory Rate 16 /min [facility] [place], [place] 11-26-2019 09:25-0500 BMI (Body Mass Index) 39.55 kg/m2 Vic Brown [facility], [place] 11-26-2019 09:25-0500 Body weight 106.14 kg [facility] Stephanie [facility] , [place] 11-26-2019 09:25-0500 Height 163.8 cm Vic Brown [facility] , [place] 11-19-2019 14:28-0500 Body Temperature 97.39 [degF] [facility] [place] 11-19-2019 14:28-0500 BP Diastolic 77 mm[Hg] [facility] [place] 11-19-2019 14:28-0500 BP Systolic 142 mm[Hg] [facility] [place] 11-19-2019 14:28-0500 Pulse (Heart Rate) 97 /min Vic Brown [facility], [place] 11-19-2019 14:28-0500 Pulse Oximetry 100 % [facility] [place] 11-19-2019 14:01-0500 BMI (Body Mass Index) 39.82 kg/m2 Vic Brown [facility], [place] 11-19-2019 14:01-0500 Body weight 105.23 kg [facility] [place] 11-19-2019 14:01-0500 Height 162.6 cm [facility] [place] [facility] [place] 11-19-2019 14:01-0500 Respiratory Rate 16 /min Vic Brown [place], [place] Encounters Encounter Date Encounter Type Care Provider Facility Start: 08-03-2023 Refill Windom Lyric Rajput DO Work Phone: [facility] [place] Procedures Date Procedure Procedure Detail Performing Clinician Start: 04-16-2023 Dup-scan xtr veins unilateral/limited study Waleska David APRN.SMOKE CONTROL SUPERVISOR Work Phone: Start: 04-18-2022 Adult depression scr eening assessment [facility] DO Work Phone: Start: 10-29-2021 Lipid 1996 panel - S sofia or Plasma [facility] DO Work Phone: Start: 05-10-2021 Mammography Windom O liverio DO Work Phone: Start: 10-20-2020 Adult depression scr eening assessment Windom Sandeep DO Work Phone: Start: 11-28-2019 BASIC METABOLIC PANE L W/ REFLEX TO MG FOR LOW K Magydiandra Tuttle Work Phone: Start: 11-27-2019 Blood count complete auto&auto difrntl wbc Magy Tuttle Work Phone: Start: 11-26-2019 OPERATIVE REPORT 3m Sca nning Start: 11-19-2019 Ecg routine ecg w/le ast 12 lds w/i&r Justen Dg [employer] Work Phone: Start: 11-19-2019 ADD ON LAB TEST Justen miner [employer] Work Phone: Start: 11-19-2019 Basic metabolic pane l calcium total Justen Dg [employer] Work Phone: Start: 11-19-2019 Blood count complete automated Justen Dg [employer] Work Phone: Start: 11-19-2019 Blood typing serologic abo Justen Dg [employer] Work Phone: Start: 11-19-2019 Hemoglobin glycosyla gilberto a1c Justen Dg [employer] Work Phone: Plan of Treatment Date Care Activity Detail Author Start: 10-29-2026 Lipid 1996 panel - S sofia or Plasma Lipid Screening [facility] Start: 10-29-2026 LIPID SCREEN LIPID SCREEN [facility] Start: 04-29-2026 Diabetes Screening Diabetes Screenin g [facility] Start: 10-07-2025 DIABETES SCREEN DIABETES SCREEN [facility] Start: 10-29-2024 DIABETES SCREEN DIABETES SCREEN [facility] Start: 10-07-2023 ANNUAL PCP TEAM ELECTRIC TRACK SWITCH MAINTAINER PREETHI DISEASE VISIT ANNUAL PCP TEAM CHRONIC DISEASE VISIT [facility] Start: 05-30-2023 Covid-19 Vaccine () Covid-19 Vaccine () [facility] Start: 05-30-2023 Influenza vaccination [facility] Start: 04-18-2023 Adult depression scr eening assessment DEPRESSION SCREENING [facility] Start: 04-18-2023 ANNUAL PCP TEAM ELECTRIC TRACK SWITCH MAINTAINER PREETHI DISEASE VISIT ANNUAL PCP TEAM CHRONIC DISEASE VISIT [facility] Start: 10-19-2022 ANNUAL PCP TEAM ELECTRIC TRACK SWITCH MAINTAINER PREETHI DISEASE VISIT ANNUAL PCP TEAM CHRONIC DISEASE VISIT [facility] Start: 10-19-2022 BP CONTROLLED (<130/80) BP CONTROLLE D (<130/80) [facility] Start: 09-29-2022 ADVANCE DIRECTIVE DISCUSSION ADVANCE DIRECTIVE DISCUSSION [facility] Start: 09-29-2022 DEPRESSION ASSESSMENT DEPRESSION ASS ESSMENT [facility] Start: 05-30-2022 Influenza vaccination INFLUENZA (#1) [facility] Start: 05-10-2022 Mammography [facility] Start: 04-25-2022 COVID-19 VACCINE (5 - Booster for Pfizer series) COVID-19 VACCINE (5 - Booster for Pfizer series) [facility] Start: 04-19-2022 BONE DENSITY BONE DENSITY [facility] Immunizations Immunization Date Immunization Notes Care Provider Cydney orozco 10-08-2022 influenza virus vaccine, unspecified formulation Ira Sandeep DO Work Phone: [facility] 10-11-2021 influenza, high dose seasonal, preservative-free Windom Sandeep DO Work Phone: [facility] 10-11-2021 Influenza, injectabl e, Madin Francisca Canine Kidney, preservative free, quadrivalent Windom Sandeep DO Work Phone: [facility] 11-29-2019 influenza, injectabl e, quadrivalent, preservative free Vic Keaton [facility] 11-29-2019 influenza quadrivale nt split vaccine (FLUZONE;FLUARIX;FLULAV AL;AFLURIA) injection 0.5 mL [place], [place] 11-15-2015 pneumococcal conjuga te vaccine, 13 valent Windom Sandeep DO Work Phone: [facility] 09-06-2015 influenza, seasonal, injectable Windom Sandeep DO Work Phone: [facility] 09-06-2015 influenza, seasonal, injectable, preservative free Ira Sandeep DO Work Phone: [facility] 07-29-2015 influenza, seasonal, injectable, preservative free Ira Sandeep DO Work Phone: [facility] 11-29-2014 poliovirus vaccine, inactivated Windom Sandeep DO Work Phone: [facility] Payers Date Payer Category Payer Medicare UHC MEDICARE UHC MEDICARE ADVANTAGE O [id number] 2021-Present [phone] [address] [address] [place] [address] O [id number] 2021 Medicare [id number] 2021 Unknown [id number] 2016 Medicare MEDICARE MEDICAR E PART A AND B xxxxxxxxxxx 2016-Present [phone] [place] [address] xxxxxxxxxxx [id number] 2016 Medicare MEDICARE MEDICAR E A AND B [id number] 2016-[address] [place] [address] Medicare [id number] 1959 Medicare [id number] 1950 Unknown [id number] Social History Date Type Detail Facility Start: 10-14-2019 End: 11-19-2019 Tobacco smoking status NHIS Current some day smoker [facility] Work Phone: History of tobacco use Cigarette Smoker [facility] Work Phone: Start: 11-19-2019 End: 10-13-2022 Cigarettes smoked current (pack per day) - Reported [facility] Start: 10-14-2019 End: 11-19-2019 Alcohol intake Current drinker of alcohol (finding) [facility] Work Phone: Start: 10-14-2019 History SDOH Alcohol Frequency 2 [employer] Work Phone: Start: 10-14-2019 Alcohol Comment once every 2-3 yrs [facility] [employer] Work Phone: Start: 1950 Sex Assigned At Not on file [facility] [employer] Work Phone: Start: 11-13-2016 End: 10-07-2022 Tobacco smoking status NHIS Smokes tobacco daily [facility] Work Phone: Start: 11-13-2016 End: 10-07-2022 Tobacco use and exposure Smokeless tobacco non-user [facility] Work Phone: Start: 10-20-2020 End: 04-15-2023 Alcohol intake Current non-drinker of alcohol (finding) [facility] Start: 11-13-2016 Tobacco Comment 5 cigs per day [facility] Start: 09-29-2021 End: 04-18-2022 Exposure to SARS-CoV-2 (event) Not sure [facility] Start: 04-18-2022 End: 10-07-2022 Tobacco Comment 1-2 cigs per day [facility] Start: 10-13-2022 End: 04-15-2023 Tobacco use panel [facility] Adult Depression Screening Assessment 3 [facility] Start: 2021 Gender identity Identifies as female gender (finding) [facility] Start: 2021 Sexual orientation Heterosexual (fin ding) [facility] Medical Equipment Procedure Code Equipment Code Equipment Origin al Text Equipment Identifier Dates Graft Infuse 18m m Large Ii Bovine Collagen Rhbmp-2 26mm Bone Absorbable - [id number] Start: 11-21-2016 Clinical Notes 10-08-2021 to [...] note to pharmacy documented in this encounter [facility] 04-15-2023 Note HNO ID: [id number] Author: Waleska David APRN.MAI Service: ? Author [...] Take 8.6 mg by mouth twice daily. Medusa-3 Fatty Acids-Vitamin E 1,000 mg cap Take [...] US DVT LOWER LEFT Waleska David APRN.MAI [facility] 04-15-2023 History of Present illness Narrative [...] Take 8.6 mg by mouth twice daily. Medusa-3 Fatty Acids-Vitamin E 1,000 mg cap Take [...] - US DVT LOWER LEFT Waleska David APRN.SMOKE CONTROL SUPERVISOR documented in this encounter [facility] 03-25-2023 Miscellaneous Notes Pharmacy faxed requesting the following refill Refill(s) Requested: Requested Prescriptions Pending Prescriptions Disp Refills lansoprazole (PREVACID) 30 mg capsule [Pharmacy Med Name: LANSOPRAZOLE DR 30 MG CAPSULE] 90 capsule 0 Sig: take 1 capsule by mouth once daily ALLERGIES Allergen Reactions Vioxx [Rofecoxib] Swelling Pregabalin Unknown, Swelling Other reaction(s): leg swelling Duloxetine Vomiting Other reaction(s): vomiting Erythromycin Unknown (home) [phone] (cell) Last Office Visit Date: 10/07/2022 Last [facility] Health Visit: Visit date not found Future Appointment: Visit date not found The patients preferred pharmacy has been captured for this encounter? yes Request is for script(s) to be escript to pharmacy. Marilu Barnes LPN documented in this encounter [facility] 01-22-2023 Miscellaneous Notes Call pharm for refills documented in this encounter [facility] 01-21-2023 Miscellaneous Notes Patient MyChart message requesting the following refill Refill(s) Requested: Requested Prescriptions Pending Prescriptions Disp Refills fluconazole (DIFLUCAN) 150 mg tablet 3 tablet 0 Sig: Take 1 tablet by mouth once daily. ALLERGIES Allergen Reactions Vioxx [Rofecoxib] Swelling Pregabalin Unknown, Swelling Other reaction(s): leg swelling Duloxetine Vomiting Other reaction(s): vomiting Erythromycin Unknown (home) [phone] (cell) Last Office Visit Date: 10/07/2022 Last [facility] Visit: Visit date not found Future Appointment: Visit date not found The patients preferred pharmacy has been captured for this encounter? yes Request is for script(s) to be escript to pharmacy. Marilu Barnes LPN documented in this encounter [facility] 12-25-2022 Miscellaneous Notes Pharmacy faxed requesting the following refill Refill(s) Requested: Requested Prescriptions Pending Prescriptions Disp Refills hydroCHLOROthiazide 25 mg tablet [Pharmacy Med Name: HYDROCHLOROTHIAZIDE 25 MG TAB] 90 tablet 1 Sig: take 1 tablet by mouth once daily ALLERGIES Allergen Reactions Vioxx [Rofecoxib] Swelling Pregabalin Unknown, Swelling Other reaction(s): leg swelling Duloxetine Vomiting Other reaction(s): vomiting Erythromycin Unknown (home) [phone] (cell) Last Office Visit Date: 10/07/2022 Last [facility] Visit: Visit date not found Future Appointment: Visit date not found The patients preferred pharmacy has been captured for this encounter? yes Request is for script(s) to be escript to pharmacy. Ofelia Hodge LPN documented in this encounter [facility] 12-24-2022 Miscellaneous Notes Pharmacy faxed requesting the following refill Refill(s) Requested: Requested Prescriptions Pending Prescriptions Disp Refills lansoprazole (PREVACID) 30 mg capsule [Pharmacy Med Name: LANSOPRAZOLE DR 30 MG CAPSULE] 90 capsule 0 Sig: take 1 capsule by mouth once daily ALLERGIES Allergen Reactions Vioxx [Rofecoxib] Swelling Pregabalin Unknown, Swelling Other reaction(s): leg swelling Duloxetine Vomiting Other reaction(s): vomiting Erythromycin Unknown (home) [phone] (cell) Last Office Visit Date: 10/07/2022 Last [facility] Health Visit: Visit date not found Future Appointment: Visit date not found The patients preferred pharmacy has been captured for this encounter? yes Request is for script(s) to be escript to pharmacy. Marilu Barnes LPN documented in this encounter [facility] 10-07-2022 Note HNO ID: [id number] Author: Ira Rajput DO Service: ? Author Type: Physician Type: Progress Notes Filed: 10/13/2022 12:52 PM Note Text: [facility] Medicine Glennalvino Rajput DO [address] [place] [address] Date of Evaluation: 10/07/2022 Patient Name: Lucrecia Roberto : 1950 Chief Complaint: Patient presents with: 6 Month Exam Hypertension frequent yeast infections Nursing Intake: There are no exam notes on file for this visit. Subjective Ms. Roberto is a 72 year old female who presents with the following complaint(s): The history is provided by the patient. No park interpreter was used. Hypertension This is a [...] Take 8.6 mg by mouth twice daily. Medusa-3 Fatty Acids-Vitamin E 1,000 mg cap Take [...] spray into e (more content not included)... [facility] 09-25-2022 Miscellaneous Notes Scheduled Pt [...] Vomiting Other reaction(s): vomiting Erythromycin Unknown (home) [phone] (cell) Last Office Visit Date: 04/18/2022 Last [facility] Health Visit: Visit date not found Future Appointment: Visit date not found The patients preferred pharmacy has been captured for this encounter? yes Request is for script(s) to be escript to pharmacy. Ofelia Hodge LPN documented in this encounter [facility] 04-18-2022 History of Present illness Narrative Images from the original note were not included. [facility] [address] [place] [address] Date of Evaluation: 04/18/2022 Patient Name: Lucrecia [...] by mouth every 6 hours as needed. Medusa-3 Fatty Acids-Vitamin E (FISH OIL) 1,000 mg [...] 2022 3:05 PM. documented in this encounter [facility] 01-03-2022 Miscellaneous Notes Pharmacy faxed requesting the following refill Refill(s) Requested: Pending Prescriptions Disp Refills HYDROCHLOROTHIAZIDE 25 MG TABLET 90 tablet 3 Sig: take 1 tablet by mouth once daily LUZ: Yes ALLERGIES Allergen Reactions Vioxx [Rofecoxib] Swelling Pregabalin Unknown, Swelling Other reaction(s): leg swelling Duloxetine Vomiting Other reaction(s): vomiting Erythromycin Unknown (home) [phone] (cell) Last Office Visit Date: 10/19/2021 Last [facility] Health Visit: Visit date not found Future Appointment: 04/18/2022 The patients preferred pharmacy has been captured for this encounter? yes Request is for script(s) to be escript to pharmacy. Cathi Nolen LPN documented in this encounter [facility] 01-02-2022 Miscellaneous Notes Patient updated. Script sent diverticulitis documented in this encounter [facility] 10-08-2021 Miscellaneous Notes Pharmacy faxed requesting [...] Vomiting Other reaction(s): vomiting Erythromycin Unknown (home) [phone] (cell) Last Office Visit Date: 04/19/2021 Last [facility] Health Visit: Visit date not found Future Appointment: 10/19/2021 The patients preferred pharmacy has been captured for this encounter? yes Request is for script(s) to be escript to pharmacy. Ofelia Hodge LPN documented in this encounter [facility] documented in this encounter [facility] Work Phone: Evaluation note* Diagnosis Gastroesophageal reflux disease, unspecified whether esophagitis present Essential hypertension Unspecified essential hypertension documented in this encounter [facility] note* Diagnosis Essential hypertension Unspecified essential hypertension documented in this encounter [facility] note* Diagnosis Primary hypertension- Primary Unspecified essential hypertension Gastroesophageal reflux disease without esophagitis Esophageal reflux Psoriasis Other psoriasis Seasonal allergies Allergic rhinitis, cause unspecified documented in this encounter [facility] note* Diagnosis Gastroesophageal reflux disease, unspecified whether esophagitis present documented in this encounter [facility] note* Diagnosis Gastroesophageal reflux disease, unspecified whether esophagitis present documented in this encounter [facility] note* Diagnosis Essential hypertension Unspecified essential hypertension documented in this encounter [facility] note* Diagnosis Vaginal yeast infection Candidiasis of vulva and vagina documented in this encounter [facility] note* Diagnosis Leg swelling- Primary Swelling of limb documented in this encounter [facility] note* Diagnosis Leg swelling Swelling of limb documented in this encounter [facility] note* Diagnosis Gastroesophageal reflux disease, unspecified whether esophagitis present documented in this encounter [facility] for referral (narrative)* Diagnostic Procedure Only (Urgent) - Pending Review Specialty Diagnoses / Procedures Referred By Alvarez lord Referred To Contact US IMAGING Diagnoses Leg swelling Procedures US DVT LOWER LEFT DUP-SCAN XTR VEINS UNILATERAL/LIMITED STUDY Waleska David APRN.SMOKE CONTROL SUPERVISOR [address] [place] [address] Us Imaging Referral ID Status Reason Start Date Expiration Date Visits Requested Visits Authorized [id number] Pending Review Auto-Generat ed Referral 04/15/2023 05/14/2024 1 1 [facility] for referral (narrative)* Diagnostic Procedure Only (Urgent) - Closed Specialty Diagnoses / Procedures Referred By Contac t Referred To Contact US IMAGING Diagnoses Leg swelling Procedures US DVT LOWER LEFT DUP-SCAN XTR VEINS UNILATERAL/LIMITED STUDY Waleska David APRN.SMOKE CONTROL SUPERVISOR [address] [place] [address] Us Imaging Referral ID Status Reason Start Date Expiration Date V isits Requested Visits Authorized [id number] Closed Auto-Generate d Referral 04/15/2023 05/14/2024 1 1 [facility] for visit Narrative* Diagnostic Procedure Only (Urgent) - Closed Specialty Diagnoses / Procedures Referred By Contac t Referred To Contact US IMAGING Diagnoses Leg swelling Procedures US DVT LOWER LEFT DUP-SCAN XTR VEINS UNILATERAL/LIMITED STUDY Waleska David APRN.SMOKE CONTROL SUPERVISOR [address] [place] [address] Us Imaging Referral ID Status Reason Start Date Expiration Date V isits Requested Visits Authorized [id number] Closed Auto-Generate d Referral 04/15/2023 05/14/2024 1 1 [facility] Discharge Instructions * Instructions* Radha Khan [...] Your home care will be provided by: [facility] [phone] * Additional Instructions* Gualberto Foley PA-C - [...] Documents on File Type Date Recorded 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. They received 24 hours of prophylactic [...] d/c to home today. * Trang Hair, MANAGEMENT MANAGER - SMOKE CONTROL SUPERVISOR - 11/28/2019 1:07 PM EST 11/28/2019 Referring [...] GERD (gastroesophageal reflux disease) High blood pressure [place] (hard of hearing) BOTH EARS AND NO [...] Problem List Diagnosis Spondylolisthesis of lumbar region HELIARC WELDER: None Pain Management Adjuvants: Acetaminophen 1,000 mg Lidoderm patch Tizanidine Hydromorphone PRN- 1 mg used 11/26 Oxycodone PRN - 40 mg used Assessment: 1. Acute pain s/p L5 decompression and fusion. 2. Chronic pain 3. Opioid Tolerant/Dependent- prescribed [place] Pain Management Plan: -Acetaminophen 1,000 mg TID [...] Acute Pain Service is available by pager #[phone] Friday-Friday [phone]. For questions oracute issues after hours, please contact hospital addressing machine operator for name and pager number of the Pain ManagementProvider LUBRICATING MACHINE TENDER. [facility] has agreed to see our patients after they are discharged. Patients should be instructed to call [phone]. Please ask patient to sign a medical release andsend medical records to [facility].They will contact the patient with an appointment time. * Robyn Wagner DTR - 11/28/2019 12:01 PM EST Nutrition rescreen completed. Chart reviewed. Patient to be monitored and followed by the diet oil change technician. * Bishnu Viveros MD - 11/28/2019 [...] Hypertension 3. Psoriatic arthritis 4. GERD 5. [place] both ears no hearing aid 6. obesity Bp controlled and stable, Continue losartan HCTZ and pepcid Monitor BP Pain control and SCD's, PT will follow Diagnosis Date Arthritis Constipation Diverticulitis GERD (gastroesophageal reflux disease) High blood pressure [place] (hard of hearing) BOTH EARS AND NO [...] 11/27/2019 2:33 PM EST Physical Therapy Facility/Department: [facility] Initial Assessment NAME: Lucrecia Roberto [...] GERD (gastroesophageal reflux disease), High blood pressure, [place] (hard of hearing), PONV (postoperative nausea and vomiting), Renal cyst, and Sciatic nerve pain. has a past surgical history that includes back surgery (2017); [place] tooth extraction; Appendectomy; Foot surgery (Right); Colonoscopy; [...] Ambulation Assistance: Independent Transfer Assistance: Independent Active Paving Supervisor: Yes Mode of Transportation: Car Objective AROM [...] 9:53 AM EST Lucrecia Roberto was ordered [id number]. D. Per [facility] Policy #4005, herbals and certain [...] aware of patient's bed assignment to , 3625. documented in this encounter Assessments Diagnosis Spondylolisthesis of lumbar region- Primary Acquired spondylolisthesis Reason for Referral Status Reason Specialty Diagnoses / Procedures Referre d By Contact Referred To Contact Closed Radiology Diagnoses Lumbar stenosis with neurogenic claudication Procedures MRI Lumbar Spine WO Contrast Vic Pugh MD [address] [place] [address] Additional Source Comments INFORMATION SOURCE (unrecogn ized section and content) DATE CREATED AUTHOR AUTHOR'S ORGANIZ ATION 11/30/2019 [facility] DATE CREATED AUTHOR AUTHOR'S ORGANIZ ATION 12/13/2019 [facility] DATE CREATED AUTHOR AUTHOR'S ORGANIZ ATION 12/17/2020 [facility] DATE CREATED AUTHOR AUTHOR'S ORGANIZ ATION 05/01/2023 [facility] DATE CREATED AUTHOR AUTHOR'S ORGANIZ ATION 07/09/2023 [facility] Source Comments (unrecognize d section and content) In the event this informatio n is protected by the Federal Confidentiality of Alcohol and Drug Abuse Patient Records regulations: The Federal rules restrict any use of the information to criminally investigate or prosecute any alcohol or drug abuse patient.[facility] the event this information is protected by the Federal Confidentiality of Alcohol and Drug Abuse Patient Records regulations: The Federal rules restrict any use of the information to criminally investigate or prosecute any alcohol or drug abuse patient.[facility] the event this information is protected by the Federal Confidentiality of Alcohol and Drug Abuse Patient Records regulations: The Federal rules restrict any use of the information to criminally investigate or prosecute any alcohol or drug abuse patient.[facility] the event this information is protected by the Federal Confidentiality of Alcohol and Drug Abuse Patient Records regulations: The Federal rules restrict any use of the information to criminally investigate or prosecute any alcohol or drug abuse patient.[facility] the event this information is protected by the Federal Confidentiality of Alcohol and Drug Abuse Patient Records regulations: The Federal rules restrict any use of the information to criminally investigate or prosecute any alcohol or drug abuse patient.[facility] the event this information is protected by the Federal Confidentiality of Alcohol and Drug Abuse Patient Records regulations: The Federal rules restrict any use of the information to criminally investigate or prosecute any alcohol or drug abuse patient.[facility] the event this information is protected by the Federal Confidentiality of Alcohol and Drug Abuse Patient Records regulations: The Federal rules restrict any use of the information to criminally investigate or prosecute any alcohol or drug abuse patient.[facility] the event this information is protected by the Federal Confidentiality of Alcohol and Drug Abuse Patient Records regulations: The Federal rules restrict any use of the information to criminally investigate or prosecute any alcohol or drug abuse patient.[facility] the event this information is protected by the Federal Confidentiality of Alcohol and Drug Abuse Patient Records regulations: The Federal rules restrict any use of the information to criminally investigate or prosecute any alcohol or drug abuse patient.[facility] the event this information is protected by the Federal Confidentiality of Alcohol and Drug Abuse Patient Records regulations: The Federal rules restrict any use of the information to criminally investigate or prosecute any alcohol or drug abuse patient.[facility] the event this information is protected by the Federal Confidentiality of Alcohol and Drug Abuse Patient Records regulations: The Federal rules restrict any use of the information to criminally investigate or prosecute any alcohol or drug abuse patient.[facility] the event this information is protected by the Federal Confidentiality of Alcohol and Drug Abuse Patient Records regulations: The Federal rules restrict any use of the information to criminally investigate or prosecute any alcohol or drug abuse patient.[facility] Hospital[facility] the event this information is protected by the Federal Confidentiality of Alcohol and Drug Abuse Patient Records regulations: The Federal rules restrict any use of the information to criminally investigate or prosecute any alcohol or drug abuse patient.[facility] Hospital[facility] the event this information is protected by the Federal Confidentiality of Alcohol and Drug Abuse Patient Records regulations: The Federal rules restrict any use of the information to criminally investigate or prosecute any alcohol or drug abuse patient.[facility] Hospital[facility] the event this information is protected by the Federal Confidentiality of Alcohol and Drug Abuse Patient Records regulations: The Federal rules restrict any use of the information to criminally investigate or prosecute any alcohol or drug abuse patient.[facility] Hospital[facility] the event this information is protected by the Federal Confidentiality of Alcohol and Drug Abuse Patient Records regulations: The Federal rules restrict any use of the information to criminally investigate or prosecute any alcohol or drug abuse patient.[facility] Reason for Visit (unrecogniz ed section [...] Care Teams (unrecognized sec tion and content) Machine I Engraver Relationship Specialty Start Date End Date Ira Rajput DO PCP - General Family Practice 01/17/16 Machine I Engraver Relationship Specialty Start Date End Date Ira Rajput DO PCP - General Family Practice 01/17/16 Machine I Engraver Relationship Specialty Start Date End Date Ira Rajput DO PCP - General Family Practice 01/17/16 Machine I Engraver Relationship Specialty Start Date End Date Ira Rajput DO PCP - General Family Practice 01/17/16 Machine I Engraver Relationship Specialty Start Date End Date Ira Rajput DO PCP - General Family Medicine 01/17/16 Machine I Engraver Relationship Specialty Start Date End Date Ira Rajput DO PCP - General Family Medicine 01/17/16 Machine I Engraver Relationship Specialty Start Date End Date Ira Rajput DO PCP - General Family Medicine 01/17/16 Machine I Engraver Relationship Specialty Start Date End Date Ira Rajput DO PCP - General Family Medicine 01/17/16 Machine I Engraver Relationship Specialty Start Date End Date Ira Rajput DO PCP - General Family Medicine 01/17/16 Machine I Engraver Relationship Specialty Start Date End Date Ira Rajput DO PCP - General Family Medicine 01/17/16 Machine I Engraver Relationship Specialty Start Date End Date Ira [...] BE BASED ON THE PRIMARY CLINICAL RECORDS. [employer] [facility]. provides no warranty or guarantee of the accuracy or completeness of information in this document.
--- NOTE | 2023-11-29 15:36 | PCM.HP.STD ---
HPI - General General Date of Admission: 11/29/23 Date of Service: 11/29/23 Chief Complaint: Nausea, vomiting, malaise HPI Narrative ISIDRA WARREN, is a 73 F who presents to the emergency room at [facility] by squad due to complaints of nausea, vomiting, and malaise since last night. Patient also complains of generalized back pain. Workup in the emergency room included labs which showed an elevated white blood cell count at 21.6, hemoglobin was 11.6, potassium was low at 2.9, creatinine was elevated at 1.34, BUN was elevated at 34. Lactic acid was elevated at 3.1. Patient's blood pressure was noted to be low when she was admitted to the ER with a blood pressure of 84/42. Patient was given IV fluids and IV vancomycin and Zosyn was given to the patient, chest x-ray did not show any evidence of pneumonia, urinalysis was grossly positive for urinary tract infection. Patient required 6 L of oxygen to maintain her pulse ox above 90%-patient is on oxygen at home but she cannot tell me what setting she uses, she has a history of pulmonary fibrosis. A central line was inserted in the ER, patient was placed on Levophed, patient will be admitted to ICU for septic shock, IV antibiotics will be maintained, labs will be monitored. I talked to the patient and her son at length about CODE STATUS, she inferred that she would want to be treated fully unless the situation became hopeless and she was not going to get off the ventilator at which time she stated that she would want to be extubated. [facility] Medical History Abrasion Ambulates with cane Arthritis Atherosclerotic heart disease of [place] coronary artery without angina pectoris Back pain Back problem C. difficile colitis Diastolic heart failure Elevated glucose Gastric reflux GERD (gastroesophageal reflux disease) Hearing difficulty High blood pressure High cholesterol History of diverticulitis History of hiatal hernia History of steroid therapy History of ulceration HTN (hypertension) IBS (irritable bowel syndrome) Low back pain Neuropathy Obesity Osteoarthritis Osteopenia Psoriatic arthritis Smoker Uses wheelchair Walker as ambulation aid Wears glasses Home Medications omega-3 fatty acids-fish oil 340 mg-1,000 mg capsule (Fish Oil) 1,000 mg PO DAILY supplment 11/10/15 [History Last Taken 10/11/23] tizanidine 4 mg tablet 4 mg PO QHS 11/10/15 [History Last Taken 11/16/15 21:30] calcium carbonate 600 mg calcium (1,500 mg) tablet 2,000 mg PO DAILY bone health 11/17/15 [History Last Taken 10/11/23] cholecalciferol (vitamin D3) 25 mcg (1,000 unit) tablet (Vitamin D3) 1,000 unit PO BID supplement 11/17/15 [History Last Taken 10/11/23] folic acid 1 mg tablet 1 mg PO DAILY 04/05/22 [History Last Taken Unknown] melatonin 10 mg capsule 10 mg PO HS PRN Sleep 04/05/22 [History Last Taken 10/10/23] prednisone 5 mg tablet 1 tab PO DAILY 04/30/22 [History Last Taken Unknown] aspirin 81 mg chewable tablet 81 mg PO DAILY@0800 stent #0 tabs 06/13/23 [Rx Last Taken 10/11/23] miconazole nitrate 2 % topical powder (Desenex) 1 applic topical BID #0 grams 06/13/23 [Rx Last Taken 10/10/23] oxymetazoline 0.05 % nasal spray (Nasal [place] (oxymetazoline)) 2 spray NASAL X1 PRN NASAL CONGESTION #0 mL 06/13/23 [Rx Last Taken 10/10/23] polyethylene glycol 3350 17 gram oral powder packet 17 g PO DAILY #0 ea 06/13/23 [Rx Last Taken 10/10/23] Bedside commode #1 ea 07/16/23 [Rx Last Taken Unknown] hydrochlorothiazide 25 mg tablet 25 mg PO DAILY #1 TAB 07/28/23 [Rx Last Taken Unknown] atorvastatin 40 mg tablet 40 mg PO QHS #90 tabs 08/04/23 [Rx Last Taken Unknown] clopidogrel 75 mg tablet (Plavix) 75 mg PO DAILY #90 tabs 08/04/23 [Rx Last Taken Unknown] metoprolol tartrate 25 mg tablet 12.5 mg (1/2 x 25 mg) PO BID #90 tabs 08/04/23 [Rx Last Taken Unknown] fluticasone propionate 50 mcg/actuation nasal spray,suspension 2 spray intranasal DAILY #16 grams 09/08/23 [Rx Last Taken Unknown] nebulizers #1 ea 11/03/23 [Rx Last Taken Unknown] dextromethorphan-guaifenesin 30 mg-600 mg tablet extended [id number] hr (Mucinex DM) 2 tab PO BID PRN cough 11/10/23 [History Last Taken Unknown] hydrocodone 10 mg-acetaminophen 325 mg tablet 0.5 tab PO BID Pain 10 days #10 tabs 11/28/23 [Rx Last Taken Unknown] methenamine hippurate 1 gram tablet 1 g PO BID #30 tabs 11/28/23 [Rx Last Taken Unknown] nitrofurantoin monohydrate/macrocrystals 100 mg capsule 100 mg PO Q12 #6 CAPSULES 11/28/23 [Rx Last Taken Unknown] buprenorphine 15 mcg/hour weekly transdermal patch 1 patch transdermal Q7D 11/29/23 [History Last Taken Unknown] fluconazole 150 mg tablet 150 mg PO DAILY 11/29/23 [History Last Taken Unknown] ipratropium 0.5 mg-albuterol 3 mg (2.5 mg base)/3 mL nebulization soln 3 ml inhalation Q6H 11/29/23 [History Last Taken Unknown] lansoprazole 30 mg capsule,delayed release 30 mg PO DAILY 11/29/23 [History Last Taken Unknown] losartan 50 mg tablet 50 mg PO DAILY 11/29/23 [History Last Taken Unknown] potassium chloride 20 mEq oral packet 20 meq PO DAILY 11/29/23 [History Last Taken Unknown] Allergy/AdvReac Type Severity Reaction Status Date / Time duloxetine [From Cymbalta] Allergy Intermediate Swelling Verified 11/29/23 11:36 erythromycin base Allergy Nausea/Vom/ Verified 11/29/23 11:36 Diarrhea pregabalin [From Lyrica] Allergy Swelling Verified 11/29/23 11:36 Family History Mother Diabetes Arthritis Heart disease CVA (cerebral vascular accident) Hypertension History of blood transfusion Father Pancreatic cancer Alcoholism Peptic ulcer disease Son Seizures Suicide attempt Surgical History H/O laminectomy History of appendectomy History of appendectomy History of breast biopsy History of colonoscopy (05/01/02) History of foot surgery History of spinal surgery Stented coronary artery (06/03/23) Social History Smoking Status: Former smoker how long ago did patient quit smoking: about 2 months ago alcohol intake: never substance use type: does not use what type of physical activity do you participate in: none seatbelt use: always do you feel safe at home: Yes ROS Constitutional Constitutional: Reports chills, fatigue and malaise; Denies anorexia, change in weight, night sweats or weakness Eyes Eyes: Denies blurry vision, change in vision, discharge from eye(s) or eye pain Cardiovascular Cardiovascular: Denies chest pain, claudication, dyspnea on exertion, edema or palpitations Respiratory/Chest Respiratory/Chest: Reports shortness of breath with exertion; Denies cough, hemoptysis or shortness of breath at rest Gastrointestinal Gastrointestinal: Denies abdominal pain, constipation, diarrhea, dyspepsia, hematemesis, hematochezia, melena, nausea or vomiting Genitourinary Genitourinary: Reports urinary frequency; Denies dysuria, hematuria, urinary hesitancy, urinary incontinence or urinary urgency Musculoskeletal Musculoskeletal: Reports arthralgias and back pain; Denies joint pain, joint stiffness, joint swelling, myalgias or neck pain Neurologic Neurologic: Denies abnormal gait, abnormal speech, dizziness, focal weakness, headache(s), loss of vision, numbness, other visual disturbances, paresthesias, syncope or tingling Psychiatric Psychiatric: Denies anxiety, cognitive impairment, depression, irritability, mood swings or suicidal ideation Endocrine Endocrinology: Denies change in body appearance, cold intolerance, excessive sweating, heat intolerance, polydipsia or polyuria Hematologic/Lymphatic Hematologic/Lymphatic: Denies none, anemia, easy bleeding, easy bruising or lymphadenopathy Allergic/Immunologic Allergic/Immunologic: Denies rhinitis, urticaria, eczemia or asthma Vital Signs Vital Signs Vital Signs: 11/29/23 11:36 11/29/23 11:35 11/29/23 11:43 Temperature 97.8 F 98.9 F Temperature Source Temporal Oral Pulse Rate 88 87 Respiratory Rate 18 18 Respiratory Effort Normal Respiratory Pattern Normal Blood Pressure 81/81 L Blood Pressure Mean 81 Pulse Ox 92 94 Oxygen Delivery Method Nasal Cannula Nasal Cannula Oxygen Flow Rate (L/min) 4 4 11/29/23 12:33 11/29/23 12:45 11/29/23 13:02 Temperature 97.6 F L 97.6 F L Temperature Source Temporal Temporal Pulse Rate 81 80 80 Respiratory Rate 27 H 21 H 22 H Respiratory Effort Respiratory Pattern Blood Pressure 84/42 L 92/51 L 84/27 L Blood Pressure Mean 56 64 46 Pulse Ox 95 95 95 Oxygen Delivery Method Nasal Cannula Nasal Cannula Oxygen Flow Rate (L/min) 5 4 4 11/29/23 13:26 11/29/23 13:19 11/29/23 13:21 Temperature Temperature Source Pulse Rate 83 85 82 Respiratory Rate 18 24 H 24 H Respiratory Effort Respiratory Pattern Blood Pressure 86/57 L 85/55 L 94/61 Blood Pressure Mean 66 65 72 Pulse Ox 97 95 97 Oxygen Delivery Method Nasal Cannula Nasal Cannula Nasal Cannula Oxygen Flow Rate (L/min) 4 4 4 11/29/23 13:45 11/29/23 14:01 11/29/23 14:45 Temperature 97.2 F L 98 F Temperature Source Temporal Temporal Pulse Rate 83 83 82 Respiratory Rate 22 H 21 H 20 H Respiratory Effort Respiratory Pattern Blood Pressure 79/62 L 81/55 L 82/42 L Blood Pressure Mean 67 63 55 Pulse Ox 96 96 96 Oxygen Delivery Method Nasal Cannula Nasal Cannula Nasal Cannula Oxygen Flow Rate (L/min) 4 4 6 11/29/23 15:15 11/29/23 15:30 11/29/23 14:26 Temperature 98.3 F 98.3 F Temperature Source Core Core Pulse Rate 83 77 Respiratory Rate 26 H 28 H Respiratory Effort Respiratory Pattern Blood Pressure 95/63 108/56 L 89/48 L Blood Pressure Mean 73 73 61 Pulse Ox 100 100 Oxygen Delivery Method Nasal Cannula Nasal Cannula Oxygen Flow Rate (L/min) 6 11/29/23 14:54 11/29/23 14:30 11/29/23 14:45 Temperature 96.8 F L Temperature Source Core Pulse Rate 81 84 84 Respiratory Rate 22 H 22 H 25 H Respiratory Effort Respiratory Pattern Blood Pressure 82/42 L 82/47 L 82/42 L Blood Pressure Mean 55 58 55 Pulse Ox 96 95 95 Oxygen Delivery Method Nasal Cannula Nasal Cannula Nasal Cannula Oxygen Flow Rate (L/min) 6 6 6 11/29/23 15:00 11/29/23 15:15 Temperature 97.3 F L 98.3 F Temperature Source Core Core Pulse Rate 82 83 Respiratory Rate 23 H 26 H Respiratory Effort Respiratory Pattern Blood Pressure 95/63 Blood Pressure Mean 73 Pulse Ox 96 95 Oxygen Delivery Method Nasal Cannula Nasal Cannula Oxygen Flow Rate (L/min) 6 6 Weight Weight: 97.3 kg Body Mass Index (BMI) 36.8 Results Lab / Micro Data 11/29/23 11:54 11/29/23 11:54 Labs: Laboratory Results - last 24 hr 11/29/23 11:54: WBC 21.6 H, RBC 3.79 L, Hgb 11.6 L, Hct 37.8, MCV 99.7 H, MCH 30.6, MCHC 30.7 L, RDW Std Deviation 53.1 H, RDW Coeff of Sonya 14.5, Plt Count 270, MPV 11.0, Immature Gran % (Auto) 1.000 H, Neut % (Auto) 94.0 H, Lymph % (Auto) 1.0 L, [place] % (Auto) 2.4, Eos % (Auto) 1.2, Baso % (Auto) 0.4, Absolute Neuts (auto) 20.3 H, Absolute Lymphs (auto) 0.21 L, Nucleated RBC % 0, Differential Comment SCANNED, PT 15.4 H, INR 1.2, APTT 28.8, Sodium 140, Potassium 2.9 L, Chloride 105, Carbon Dioxide 29.0, Anion Gap 6, BUN 34 H, Creatinine 1.34 H, Estim Creat Clear Calc 42.98, Est GFR (MDRD) Af Amer 50 L, Est GFR (MDRD) Non-Af 41 L, BUN/Creatinine Ratio 25.4 H, Glucose 106, Lactic Acid 3.1 H*, Calcium 8.9, Total Bilirubin 0.90, AST 28, ALT 23, Alkaline Phosphatase 68, Troponin I High Sens 28, Total Protein 6.8, Albumin 2.8 L, Globulin 4.0, Albumin/Globulin Ratio 0.7 L 11/29/23 12:19: Urine Color Whit, Urine Clarity Sl. Cloudy, Urine pH 5.0, Ur Specific [place] 1.020, Urine Protein 100 H, Urine Glucose (UA) Normal, Urine Ketones 15 H, Urine Occult Blood 25 H, Urine Nitrite Positive H, Urine Bilirubin 3 H, Urine Urobilinogen 1 H, Ur Leukocyte Esterase 500 H, Urine RBC 0 SEEN, Urine WBC 10-25 SEEN, Ur Squamous Epith Cells 0 SEEN, Urine Bacteria 2+, Urine Mucus 0 SEEN Micro: Microbiology 11/29/23 12:19 Mucosa - Nasopharyngeal SARS-CoV-2, Influenza & RSV (PCR) - Final Imaging Radiology Impression Chest X-Ray 11/29/23 12:50 IMPRESSION: Acute and chronic interstitial lung disease. Electronically Signed: Amandeep Miller MD at 13:44 EST , Assessment & Plan Assessment/Plan (1) Acute UTI: PLAN: Plan 1. Acute septic shock secondary to urinary tract infection-patient was given Zosyn and vancomycin in the emergency room, central line was placed and she was placed on Levophed. Patient will be admitted to ICU, she will be monitored closely and labs will be repeated, urine and blood cultures were sent in and are pending. #2 acute hypoxia on a backdrop of chronic hypoxic respiratory failure-patient's pulse ox will be monitored, her oxygen will be adjusted as needed, she is currently on 6 L #3 acute dehydration-patient's creatinine is elevated, she will be given IV fluids and labs will be monitored #4 coronary artery disease-this appears stable at this time #5 essential hypertension-patient's blood pressure medications will be held at this time due to hypotension, she will be reevaluated for restart of her medications in the near future #6 degenerative joint disease lumbar spine-patient takes Vicodin at home for chronic back pain, this will be continued here #7 acute urinary tract infection-cultures are pending at this time, patient will be treated with IV vancomycin and Zosyn Total clinical time spent by myself addressing the patient's medical issues, reviewing all of her data, and collaborating with patient's care team: 75 minutes Charges/Coding Visit Charges Inpatient E&M: 03725 Init Hosp L3
[2023-11-29 16:03] LABS: Reflex Lactate? Y
[2023-11-29] MEDS: Norepinephrine 8 MG in 0.9% Normal Saline (250mL Bag) 242 ML 9.40000000000000036 MG CONT INF (16:21)
--- NOTE | 2023-11-29 16:23 | RAD_ITS ---
EXAM: XR CHEST, 1 VIEW CLINICAL INDICATION: Dyspnea, POST ATTEMPTED CENTRAL LINE PLACEMENT TECHNIQUE: Frontal view of the chest. COMPARISON: XR Chest dated november 29 2023 FINDINGS: LUNGS AND PLEURAL SPACES: Diffuse interstitial lung disease again noted not significantly changed from prior study. New small bilateral pleural effusions. HEART: Normal heart size. MEDIASTINUM: No mediastinal or hilar mass. BONES/JOINTS: No acute abnormality. RAD/Chest 1 View (Portable) IMPRESSION: 1. Diffuse interstitial lung disease. 2. New small bilateral pleural effusions. Electronically Signed: Amandeep Miller MD at 16:48 EST ,
[2023-11-29 16:53] LABS: Lactic Acid 2.2 mmol/L (0.4-1.9)
--- NOTE | 2023-11-29 17:10 | PCM.RX.CS ---
Consult Antibiotic Management Pharmacy has been consulted to manage selected antibiotic: Vancomycin Type of Intervention Type of Consult: New start Suspected Infection Suspected Infection: Sepsis and Other (UTI) Prior Doses of Antibiotics Prior Doses of Antibiotics Received/Current Regimen: Patient received 2000 mg IV vancomycin x 1 11/29/23 @ 0400, also patient is on piperacillin/tazobactam 3.375 grams Q8H Labs Labs: Sodium 140 mmol/L (136-145) 11/29/23 11:54 Potassium 2.9 mmol/L (3.5-5.1) L 11/29/23 11:54 Chloride 105 mmol/L (98-107) 11/29/23 11:54 Carbon Dioxide 29.0 mmol/L (21.0-32.0) 11/29/23 11:54 Anion Gap 6 (5-15) 11/29/23 11:54 BUN 34 mg/dL (7-18) H 11/29/23 11:54 Creatinine 1.34 mg/dL (0.55-1.02) H 11/29/23 11:54 Est GFR (MDRD) Af Amer 50 mL/min (>60) L 11/29/23 11:54 Est GFR (MDRD) Non-Af 41 mL/min (>60) L 11/29/23 11:54 BUN/Creatinine Ratio 25.4 RATIO (10-20) H 11/29/23 11:54 Glucose 106 mg/dL (74-106) 11/29/23 11:54 Microbiology Microbiology: Microbiology 11/29/23 12:19 Mucosa - Nasopharyngeal SARS-CoV-2, Influenza & RSV (PCR) - Final Dosing Weight Weight used for dosin kg Estimated Creatinine Clearance Estimated Creatinine Clearance: ~43 Goal Trough Goal Trough: 15-20 mcg/mL Pharmacy Plan for Drug Dosing Pharmacy Plan for Drug Dosing: Vancomycin 2000 mg IV x 1, followed by 750 mg Q12H. Pharmacy Service will continue to monitor and adjust dosing as required. Follow-Up Labs Follow-Up Labs: Trough: Vancomycin Date/Time Labs Ordered Labs to be done on [date and time ordered]: 12/01/23 @ 0330
[2023-11-29] MEDS: KCL 20MEQ in 0.9% NS 20 MEQ/1,000 ML IV.SOLN. 125 MEQ IV (17:34)
[2023-11-29] MEDS: Acetaminophen 325 MG Tablet 650 MG PO (17:35)
--- NOTE | 2023-11-29 17:39 | EKG12_ITS ---
Test Reason : chest pressure, bradycardia Blood Pressure : / mmHG Vent. Rate : 057 BPM Atrial Rate : 057 BPM P-R Int : 142 ms QRS Dur : 084 ms QT Int : 480 ms P-R-T Axes : 041 045 049 degrees QTc Int : 467 ms Sinus bradycardia Nonspecific T wave abnormality Abnormal ECG When compared with ECG of 29-NOV-2023 13:18, MANUAL COMPARISON REQUIRED, DATA IS UNCONFIRMED Confirmed by Steve Scanlon ([id number]), development editor BRIDGETT CRESPO ([id number]) on 12/02/2023 7:47:13 AM Referred By: Kevin Confirmed By:Steve Scanlon
--- NOTE | 2023-11-29 18:02 | PCMCONS.TICU ---
HPI Consult Data Date of Consult: 11/29/23 HPI Narrative HPI Narrative: 73yo F w/ ILD, chronic resp failure on 3-4L NC, CAD s/p PCI, psoriatic arthritis on chronic pred (recently on humira/MTX), chronic pain, recent ESBL E coli UTI, obesity who was admitted with vomiting and weakness. She was recently admitted here with ESBL E coli UTI, treated with ertapenem and then discharged home last month. She was stable until last night when she developed acute onset chills, nausea/vomiting, weakness prompting her to come back this AM. Reports mild dyspnea, but no CP, abd pain. On arrival here she was hypotensive despite IVF boluses, therefore was started on levophed. She was also initially requiring 6L NC, now down to home 4L NC. She is currently taking pred 5mg daily, though has not taken MTX and humira in several weeks now d/t recent infections. Does not use regular inhalers/nebs at home. Follows with licensed plumber here for ILD. [facility] Medical History Abrasion Ambulates with cane Arthritis Atherosclerotic heart disease of [place] coronary artery without angina pectoris Back pain Back problem C. difficile colitis Diastolic heart failure Elevated glucose Gastric reflux GERD (gastroesophageal reflux disease) Hearing difficulty High blood pressure High cholesterol History of diverticulitis History of hiatal hernia History of steroid therapy History of ulceration HTN (hypertension) IBS (irritable bowel syndrome) Low back pain Neuropathy Obesity Osteoarthritis Osteopenia Psoriatic arthritis Smoker Uses wheelchair Walker as ambulation aid Wears glasses Home Medications omega-3 fatty acids-fish oil 340 mg-1,000 mg capsule (Fish Oil) 1,000 mg PO DAILY supplment 11/10/15 [History Last Taken 10/11/23] tizanidine 4 mg tablet 4 mg PO QHS muscle relaxer 11/10/15 [History Last Taken 11/28/23] calcium carbonate 600 mg calcium (1,500 mg) tablet 2,000 mg PO DAILY bone health 11/17/15 [History Last Taken 10/11/23] cholecalciferol (vitamin D3) 25 mcg (1,000 unit) tablet (Vitamin D3) 1,000 unit PO BID supplement 11/17/15 [History Last Taken 10/11/23] folic acid 1 mg tablet 1 mg PO DAILY 04/05/22 [History Last Taken Unknown] melatonin 10 mg capsule 10 mg PO HS PRN Sleep 04/05/22 [History Last Taken 10/10/23] prednisone 5 mg tablet 1 tab PO DAILY 04/30/22 [History Last Taken Unknown] aspirin 81 mg chewable tablet 81 mg PO DAILY@0800 stent #0 tabs 06/13/23 [Rx Last Taken 10/11/23] miconazole nitrate 2 % topical powder (Desenex) 1 applic topical BID #0 grams 06/13/23 [Rx Last Taken 10/10/23] oxymetazoline 0.05 % nasal spray (Nasal [place] (oxymetazoline)) 2 spray NASAL X1 PRN NASAL CONGESTION #0 mL 06/13/23 [Rx Last Taken 10/10/23] polyethylene glycol 3350 17 gram oral powder packet 17 g PO DAILY #0 ea 06/13/23 [Rx Last Taken 10/10/23] Bedside commode #1 ea 07/16/23 [Rx Last Taken Unknown] hydrochlorothiazide 25 mg tablet 25 mg PO DAILY #1 TAB 07/28/23 [Rx Last Taken Unknown] atorvastatin 40 mg tablet 40 mg PO QHS #90 tabs 08/04/23 [Rx Last Taken Unknown] clopidogrel 75 mg tablet (Plavix) 75 mg PO DAILY #90 tabs 08/04/23 [Rx Last Taken Unknown] metoprolol tartrate 25 mg tablet 12.5 mg (1/2 x 25 mg) PO BID #90 tabs 08/04/23 [Rx Last Taken 11/28/23] fluticasone propionate 50 mcg/actuation nasal spray,suspension 2 spray intranasal DAILY #16 grams 09/08/23 [Rx Last Taken Unknown] nebulizers #1 ea 11/03/23 [Rx Last Taken Unknown] dextromethorphan-guaifenesin 30 mg-600 mg tablet extended [id number] hr (Mucinex DM) 2 tab PO BID PRN cough 11/10/23 [History Last Taken Unknown] hydrocodone 10 mg-acetaminophen 325 mg tablet 0.5 tab PO BID Pain 10 days #10 tabs 11/28/23 [Rx Last Taken Unknown] methenamine hippurate 1 gram tablet 1 g PO BID #30 tabs 11/28/23 [Rx Last Taken Unknown] nitrofurantoin monohydrate/macrocrystals 100 mg capsule 100 mg PO Q12 #6 CAPSULES 11/28/23 [Rx Last Taken Unknown] buprenorphine 15 mcg/hour weekly transdermal patch 1 patch transdermal Q7D 11/29/23 [History Last Taken Unknown] fluconazole 150 mg tablet 150 mg PO DAILY 11/29/23 [History Last Taken Unknown] ipratropium 0.5 mg-albuterol 3 mg (2.5 mg base)/3 mL nebulization soln 3 ml inhalation Q6H 11/29/23 [History Last Taken Unknown] lansoprazole 30 mg capsule,delayed release 30 mg PO DAILY 11/29/23 [History Last Taken Unknown] losartan 50 mg tablet 50 mg PO DAILY 11/29/23 [History Last Taken Unknown] potassium chloride 20 mEq oral packet 20 meq PO DAILY 11/29/23 [History Last Taken Unknown] Allergy/AdvReac Type Severity Reaction Status Date / Time duloxetine [From Cymbalta] Allergy Intermediate Swelling Verified 11/29/23 11:36 erythromycin base Allergy Nausea/Vom/ Verified 11/29/23 11:36 Diarrhea pregabalin [From Lyrica] Allergy Swelling Verified 11/29/23 11:36 Family History Mother Diabetes Arthritis Heart disease CVA (cerebral vascular accident) Hypertension History of blood transfusion Father Pancreatic cancer Alcoholism Peptic ulcer disease Son Seizures Suicide attempt Surgical History H/O laminectomy History of appendectomy History of appendectomy History of breast biopsy History of colonoscopy (05/01/02) History of foot surgery History of spinal surgery Stented coronary artery (06/03/23) Social History Smoking Status: Former smoker how long ago did patient quit smoking: about 2 months ago alcohol intake: never substance use type: does not use what type of physical activity do you participate in: none seatbelt use: always do you feel safe at home: Yes ROS ROS Narrative 12-point ROS negative except as per HPI Objective Data Objective Data Vital Signs: Vital Signs Last response Temperature 37.4 C H 11/29/23 18:00 Temperature Source Core 11/29/23 18:00 Pulse Rate 58 L 11/29/23 18:00 Respiratory Rate 19 H 11/29/23 18:00 Respiratory Effort Normal 11/29/23 11:35 Respiratory Pattern Normal 11/29/23 11:35 Blood Pressure 113/47 L 11/29/23 18:00 Blood Pressure Mean 69 11/29/23 18:00 Blood Pressure Source Monitor 11/29/23 18:00 Blood Pressure Position Semi-Fowlers 11/29/23 18:00 Blood Pressure Location Left Arm 11/29/23 18:00 Pulse Ox 100 11/29/23 18:00 Oxygen Delivery Method Nasal Cannula 11/29/23 18:00 Oxygen Flow Rate (L/min) 6 11/29/23 18:00 I&O: I&O Last 24 Hours 11/28/23 11/29/23 11/29/23 23:59 11:59 23:59 Intake Total 250 / 3356.62 3106.62 / 3356.62 Balance 250 / 3356.62 3106.62 / 3356.62 I&O: Total Stay 11/29/23 11:35 thru 11/29/23 18:00 Intake Total 3356.62 Balance 3356.62 Current Meds Ordered / Administered: Current meds ordered / Administered Generic Name Dose Route Start Last Admin Trade Name Freq PRN Reason Stop Dose Admin Acetaminophen 650 mg 11/29/23 16:48 11/29/23 17:35 Acetaminophen 325 Mg Tablet PO 650 mg Q6H PRN PRN Administration Pain 1-10 Or Fever >100.7 Hydrocodone Bitart/Acetaminophen 1 tablet 11/29/23 22:00 Hydrocodone Bitartrate/Apap 5/325 Tablet PO BID [facility] Albuterol/Ipratropium 3 ml 11/29/23 16:48 Ipratropium/Albuterol Sulfate 3 Ml Ampul.Neb INHALATION Q6H.RT [facility] Aspirin 81 mg 11/30/23 08:00 Aspirin 81 Mg Tab.Chew PO DAILY@0800 [facility] Atorvastatin Calcium 40 mg 11/29/23 22:00 Atorvastatin Calcium 40 Mg Tablet PO QHS [facility] Buprenorphine 1 patch 11/30/23 10:00 Buprenorphine 15 Mcg Patch.Tdwk TD Justice@1000 [facility] Clopidogrel Bisulfate 75 mg 11/30/23 10:00 Clopidogrel Bisulfate 75 Mg Tablet PO DAILY [facility] Heparin Sodium (Porcine) 5,000 unit 11/29/23 22:00 Heparin Injection (Vial) 5,000 Unit/Ml Vial SC Q12 RUTHIE Norepinephrine Bitartrate 8 mg 250 mls @ 9.375 mls/hr 11/29/23 14:15 11/29/23 18:00 / Sodium Chloride CONT INF 5 mcg/min .[id number] RUTHIE 9.4 mls/hr Titration Protocol 5 MCG/MIN Potassium Chloride/Sodium Chloride 20 meq in 1,000 mls @ 125 mls/hr 11/29/23 16:48 11/29/23 17:34 IV 125 mls/hr .Q8H RUTHEI Administration Piperacillin Sod/Tazobactam 50 mls @ 12.5 mls/hr 11/29/23 22:00 Sod 3.375 gm/ Sodium Chloride IV Q8 RUTHIE Vancomycin IV-PHARMACY TO DOSE 500 mls @ 250 mls/hr 11/29/23 16:48 1 each/ Sodium Chloride IV PRN PRN Rx to Dose Protocol Vancomycin HCl 750 mg/ Sodium 265 mls @ 250 mls/hr 11/30/23 04:00 Chloride IV Q12H RUTHIE Sodium Chloride 250 mls @ 15 mls/hr 11/29/23 17:07 IV .[id number] PRN Additional IVPB Infusion Sodium Chloride 250 mls @ 15 mls/hr 11/29/23 17:07 IV .[id number] PRN Saline Flush Melatonin 10 mg 11/29/23 16:59 Melatonin 10 Mg Tablet PO HS PRN Sleep Ondansetron HCl 4 mg 11/29/23 16:48 Ondansetron 4 Mg/2 Ml Vial IV Q8H PRN PRN NAUSEA/VOMITING Oxymetazoline HCl 2 spray 11/29/23 16:48 Oxymetazoline 0.05% 1 [place] Turtlepoint.Btl NASAL X1 PRN NASAL CONGESTION Polyethylene Glycol 17 gm 11/30/23 10:00 Polyethylene Glycol 3350 17 Gm Packet PO DAILY [facility] Prednisone 5 mg 11/30/23 08:00 Prednisone 5 Mg Tablet PO DAILYCM [facility] Sodium Chloride 10 - 40 ml 11/29/23 17:07 0.9% Saline Lock 10 Ml Syringe IV UD PRN SALINE FLUSH Vancomycin Protocol 1 lab 12/01/23 01:30 Vancomycin Trough/Random Due MC 12/01/23 05:30 DAILY [facility] Lab / Micro Data 11/29/23 11:54 11/29/23 11:54 Labs: Laboratory Results - last 24 hr 11/29/23 11:54: WBC 21.6 H, RBC 3.79 L, Hgb 11.6 L, Hct 37.8, MCV 99.7 H, MCH 30.6, MCHC 30.7 L, RDW Std Deviation 53.1 H, RDW Coeff of Sonya 14.5, Plt Count 270, MPV 11.0, Immature Gran % (Auto) 1.000 H, Neut % (Auto) 94.0 H, Lymph % (Auto) 1.0 L, [place] % (Auto) 2.4, Eos % (Auto) 1.2, Baso % (Auto) 0.4, Absolute Neuts (auto) 20.3 H, Absolute Lymphs (auto) 0.21 L, Nucleated RBC % 0, Differential Comment SCANNED, PT 15.4 H, INR 1.2, APTT 28.8, Sodium 140, Potassium 2.9 L, Chloride 105, Carbon Dioxide 29.0, Anion Gap 6, BUN 34 H, Creatinine 1.34 H, Estim Creat Clear Calc 42.98, Est GFR (MDRD) Af Amer 50 L, Est GFR (MDRD) Non-Af 41 L, BUN/Creatinine Ratio 25.4 H, Glucose 106, Lactic Acid 3.1 H*, Calcium 8.9, Total Bilirubin 0.90, AST 28, ALT 23, Alkaline Phosphatase 68, Troponin I High Sens 28, Total Protein 6.8, Albumin 2.8 L, Globulin 4.0, Albumin/Globulin Ratio 0.7 L 11/29/23 12:19: Urine Color Whit, Urine Clarity Sl. Cloudy, Urine pH 5.0, Ur Specific [place] 1.020, Urine Protein 100 H, Urine Glucose (UA) Normal, Urine Ketones 15 H, Urine Occult Blood 25 H, Urine Nitrite Positive H, Urine Bilirubin 3 H, Urine Urobilinogen 1 H, Ur Leukocyte Esterase 500 H, Urine RBC 0 SEEN, Urine WBC 10-25 SEEN, Ur Squamous Epith Cells 0 SEEN, Urine Bacteria 2+, Urine Mucus 0 SEEN 11/29/23 16:14: Lactic Acid 2.2 H* Micro: Microbiology 11/29/23 12:19 Mucosa - Nasopharyngeal SARS-CoV-2, Influenza & RSV (PCR) - Final Imaging Radiology Impression Chest X-Ray 11/29/23 12:50 IMPRESSION: Acute and chronic interstitial lung disease. Electronically Signed: Amandeep Miller MD at 13:44 EST Reading Location ID and State: [address] [place] [address] Tel , Service support , Chest X-Ray 11/29/23 16:23 IMPRESSION: 1. Diffuse interstitial lung disease. 2. New small bilateral pleural effusions. Electronically Signed: Amandeep Miller MD at 16:48 EST Reading Location ID and State: [facility] / [place] Tel , Service support , Assessment and Plan . Assessment and plan: Physical Exam: Gen - NAD, obese HEENT - MMM. Sclera anicteric Resp - Diminished BS. Breathing nonlabored CV - RRR. No m/g/r Abd - Soft, NT, ND Ext - No c/c/e. Skin - Mild fungal rash under breast Neuro - Grossly nonfocal. Alert and oriented I have reviewed the pertinent vital sign, laboratory, and imaging data. ASSESSMENT: # Septic shock # UTI - recent admit here in 09/2023 with ESBL E coli UTI as well # Acute on chronic resp failure on 3-4L NC # ILD # CAD s/p PCI # Psoriatic arthritis on chronic pred - recently on humira/MTX as well but has not taken in several weeks now # Chronic pain # Obesity PLAN: -Wean levophed to keep MAP > 65. Unsuccessful attempt at IJ CVL placement, PICC line pending -Cont gentle IVF, s/p multiple boluses earlier. Give few doses of albumin -Stress dose hydrocortisone given chronic steroid usage -Empiric vanc, switch zosyn to merrem given recent ESBL. f/u Cx. COVID/flu/RSV neg -On home baseline 4L NC, wean to keep sats > 90% -Cont ASA/plavix -Duonebs FEN/GI: PO diet as tolerated Proph DVT/GI: SQ heparin Critical Care Time: 60 mins The entirety of this encounter was completed via telemedicine
--- NOTE | 2023-11-29 18:48 | NURSING ---
1740: Patient HR dropped to the low 40s and started to complain of chest pressure. This RN had just increased the Levophed to 10mcg/min from 5mcg/min at 1730. Levophed turned back down to 5 and EKG done. notified. By 1944 symptoms resolved.
[2023-11-29] MEDS: Ipratropium/Albuterol Sulfate 3 ML AMPUL.NEB INHALATION (19:03)
[2023-11-29 19:41] LABS: Magnesium 1.1 mg/dL (1.6-2.6); Phosphorus 2.7 mg/dL (2.5-4.9)
[2023-11-29 19:42] LABS: BNP,B-Type NATRIURETIC PEPTIDE 711.6 pg/mL (0-100)
[2023-11-29 20:09] LABS: Troponin-I HS 37 pg/mL (3.0-54.0)
[2023-11-29] MEDS: Potassium Chloride 10mEq/100mL 10 MEQ/100 ML IV.SOLN. 100 MEQ IV BOLUS ×2 (20:44→21:50)
[2023-11-29] MEDS: 0.9% Normal Saline (250mL Bag) 250 ML 15 ML IV (20:45)
[2023-11-29] MEDS: Hydrocortisone Sod Succinate 100 MG/2 ML Vial IV (20:46)
[2023-11-29] MEDS: Albumin Human 25% (100 mL) 25 GM/100 ML BAG IV (20:58)
[2023-11-29] MEDS: Potassium Chloride Oral Tablet 20 MEQ 40 MEQ PO (21:06)
[2023-11-29] MEDS: Meropenem 1 GM in 0.9% Normal Saline (100mL MB+) 100 ML IV (21:07)
[2023-11-29] MEDS: Atorvastatin Calcium 40 MG Tablet PO (21:08)
[2023-11-29] MEDS: Heparin Injection (Vial) 5,000 UNIT/ML VIAL 5000 UNIT SC (21:08)
[2023-11-29] MEDS: HYDROcodone Bitartrate/Apap 5/325 Tablet PO (21:15)
[2023-11-29] MEDS: MELATONIN 10 MG TABLET PO (21:16)
[2023-11-29] MEDS: tiZANidine HCl 2 MG Tablet 4 MG PO (21:49)
[2023-11-29] MEDS: Oxymetazoline 0.05% 1 SPRAY SPRAY.BTL 2 SPRAY NASAL (21:49)
[2023-11-30] VITALS (31 sets, daily range): BP systolic 99–149; BP diastolic 39–78; PULSE 34–83; RESP 15–29; TEMP 36.8–37.4; O2SAT 96–100; BMI 36.9
[2023-11-30] MEDS: Hydrocortisone Sod Succinate 100 MG/2 ML Vial IV ×4 (00:05→21:33)
[2023-11-30] MEDS: Ipratropium/Albuterol Sulfate 3 ML AMPUL.NEB INHALATION ×4 (01:43→19:10)
[2023-11-30] MEDS: Albumin Human 25% (100 mL) 25 GM/100 ML BAG IV ×2 (02:05→11:53)
[2023-11-30] MEDS: Vancomycin HCl 750 MG in 0.9% Normal Saline (250mL Bag) 250 ML 250 MG IV (03:45)
[2023-11-30 04:04] LABS: Absolute Lymphocyte Count 0.93 X10^3/uL (0.83-4.51); Absolute Neutrophil Count 18.1 X10^3/uL (2.0-7.7); Basophil# 0.04 X10^3/uL; Basophil% 0.2 % (0-1); Eosinophil# 0.04 X10^3/uL; Eosinophils% 0.2 % (0-5); Hemoglobin 9.3 g/dL (12.0-15.0); Lymphocyte # 0.93 X10^3/ul (0.83-4.51); Lymphocyte % 4.7 % (19-41); Mean Corpuscular Hgb 31.2 pg (27.0-32.0); Mean Corpuscular Volume 100.7 fL (81-99); Mean Platelet Vol. 10.5 fl (6.2-12.0); Monocyte% 1.5 % (0-10); NRBC Flagged by Analyzer 0 % (0-5); Neutrophil # 18.06 X10^3/uL (2.7-7.7); Neutrophil % 92.2 % (47-70); Platelet Count 188 K/mm3 (150-450); RBC Distribution Width CV 14.8 % (11.6-14.6); RBC Distribution Width SD 54.5 fl (35.1-43.9); Red Blood Count 2.98 M/mm3 (4.2-5.4); White Blood Count 19.6 K/mm3 (4.4-11.0)
[2023-11-30 04:38] LABS: Anion Gap 4 (5-15); BUN 25 mg/dL (7-18); BUN/Creat Ratio 32.1 RATIO (10-20); Calcium,Total 7.6 mg/dL (8.5-10.1); Chloride 118 mmol/L (98-107); Creatinine, Serum 0.78 mg/dL (0.55-1.02); EST Glomerular Filtration Rate 77 mL/min (>60); Est Glom Filt Rate - Afr Amer 93 mL/min (>60); Estimated Creatinine Clearance 72.35 ml/min; Glucose 163 mg/dL (74-106); Potassium 4.3 mmol/L (3.5-5.1); Sodium Level 146 mmol/L (136-145)
[2023-11-30] MEDS: 0.9% Saline Lock 10 ML Syringe IV (05:45)
--- NOTE | 2023-11-30 07:04 | PN.HOSP_ITS ---
Reason for Visit Reason for Visit: Diagnoses Sepsis, unspecified organism (11/29/23) Urinary tract infection, site not specified (11/29/23) Severe sepsis with septic shock (11/29/23) Subjective Subjective Feeling better but still having suprapubic abdominal pain. Complains of swelling in the left upper extremity. Developed bradycardia with heart rate down to the 30s and 40s. Occasionally junctional rhythm. Objective Data Objective Data Vital Signs: Vital Signs Temp Pulse Resp BP Pulse Ox O2 Del Method O2 Flow Rate 36.8 C 38 L 18 129/54 H 99 Nasal Cannula 4 11/30/23 06:00 11/30/23 06:55 11/30/23 06:55 11/30/23 06:00 11/30/23 06:55 11/30/23 06:55 11/30/23 06:55 Oxygen Flow Rate (L/min) 4 Oxygen Delivery Method Nasal Cannula Weight: 98.2 kg Body Mass Index (BMI) 36.9 Intake & Output: Intake and Output for Last 24 Hours 11/28/23 11/29/23 11/30/23 23:59 23:59 23:59 Intake Total 4363.29 / 4372.69 556.95 / 556.95 Output Total 850 / 850 1000 / 1000 Balance 3513.29 / 3522.69 -443.05 / -443.05 Lab / Micro Data 11/30/23 03:55 11/30/23 03:55 Labs: Laboratory Results - last 24 hr 11/29/23 11:54: WBC 21.6 H, RBC 3.79 L, Hgb 11.6 L, Hct 37.8, MCV 99.7 H, MCH 30.6, MCHC 30.7 L, RDW Std Deviation 53.1 H, RDW Coeff of Sonya 14.5, Plt Count 270, MPV 11.0, Immature Gran % (Auto) 1.000 H, Neut % (Auto) 94.0 H, Lymph % (Auto) 1.0 L, [place] % (Auto) 2.4, Eos % (Auto) 1.2, Baso % (Auto) 0.4, Absolute Neuts (auto) 20.3 H, Absolute Lymphs (auto) 0.21 L, Nucleated RBC % 0, Differential Comment SCANNED, PT 15.4 H, INR 1.2, APTT 28.8, Sodium 140, Potas sium 2.9 L, Chloride 105, Carbon Dioxide 29.0, Anion Gap 6, BUN 34 H, Creatinine 1.34 H, Estim Creat Clear Calc 42.98, Est GFR (MDRD) Af Amer 50 L, Est GFR (MDRD) Non-Af 41 L, BUN/Creatinine Ratio 25.4 H, Glucose 106, Lactic Acid 3.1 H* , Calcium 8.9, Total Bilirubin 0.90, AST 28, ALT 23, Alkaline Phosphatase 68, Troponin I High Sens 28, Total Protein 6.8, Albumin 2.8 L, Globulin 4.0, Albumin/Globulin Ratio 0.7 L 11/29/23 12:19: Urine Color Whit, Urine Clarity Sl. Cloudy, Urine pH 5.0, Ur Specific [place] 1.020, Urine Protein 100 H, Urine Glucose (UA) Normal, Urine Ketones 15 H, Urine Occult Blood 25 H, Urine Nitrite Positive H, Urine Bilirubin 3 H, Urine Urobilinogen 1 H, Ur Leukocyte Esterase 500 H, Urine RBC 0 SEEN, Urine WBC 10-25 SEEN, Ur Squamous Epith Cells 0 SEEN, Urine Bacteria 2+, Urine Mucus 0 SEEN 11/29/23 16:14: Lactic Acid 2.2 H* 11/29/23 19:05: Phosphorus 2.7, Magnesium 1.1 L, Troponin I High Sens 37, B- Natriuretic Peptide 711.6 H 11/30/23 03:55: WBC 19.6 H, RBC 2.98 L, Hgb 9.3 L, Hct 30.0 L, MCV 100.7 H, MCH 31.2, MCHC 31.0 L, RDW Std Deviation 54.5 H, RDW Coeff of Sonya 14.8 H, Plt Count 188, MPV 10.5, Immature Gran % (Auto) 1.200 H, Neut % (Auto) 92.2 H, Lymph % (Auto) 4.7 L, [place] % (Auto) 1.5, Eos % (Auto) 0.2, Baso % (Auto) 0.2, Absolute Neuts (auto) 18.1 H, Absolute Lymphs (auto) 0.93, Nucleated RBC % 0, Sodium 146 H, Potassium 4.3, Chloride 118 H, Carbon Dioxide 24.0, Anion Gap 4 L, BUN 25 H, Creatinine 0.78, Estim Creat Clear Calc 72.35, Est GFR (MDRD) Af Amer 93, Est G FR (MDRD) Non-Af 77, BUN/Creatinine Ratio 32.1 H, Glucose 163 H, Calcium 7.6 L Micro: Microbiology 11/29/23 12:19 Mucosa - Nasopharyngeal SARS-CoV-2, Influenza & RSV (PCR) - Final Radiography Diagnostic Testing: Radiology Impression Chest X-Ray 11/29/23 12:50 IMPRESSION: Acute and chronic interstitial lung disease. Electronically Signed: Amandeep Miller MD at 13:44 EST , Chest X-Ray 11/29/23 16:23 IMPRESSION: 1. Diffuse interstitial lung disease. 2. New small bilateral pleural effusions. Electronically Signed: Amandeep Miller MD at 16:48 EST Reading Location ID and State: [facility] / [place] Tel , Service support , Physical Exam Const alert and no apparent distress HEENT head/scalp atraumatic and moist oral mucous membranes Resp normal respiratory effort, no retractions, no use of accessory muscles and clear to auscultation bilaterally Cardio regular rate, regular rhythm, S1 normal heart sound and S2 normal heart sound GI normal to inspection, nondistended, normoactive bowel sounds and soft to palpation GI Narrative: Suprapubic abdominal pain. Extremity Extremity Narrative: Nonpitting edema left upper extremity. Assessment & Plan Assessment/Plan (1) Acute UTI: PLAN: Plan septic shock * POA and now resolved. qSOFA on admission was 3 (altered mentation, SBP <100, RR >22) SIRS 2/4 (RR >20, WBC >12) * Temporarily placed on norepinephrine gtt, since weaned off. * Given stress-dose steroids with hydrocortisone due to chronic steroid use * on meropenem and vancomycin. follow up cultures and adjust abx accordingly. * suspect due to UTI UTI * recent ESBL E. coli * meropenem * Patient has had suprapubic abdominal pain. * Given his septic shock and recurrent nature of her UTIs, will check a CT of the abdomen pelvis. ELIZABETH * POA, now resolved with IVF * monitor Hypokalemia * Resolved after replacement Hypomagnesemia * noted yesterday, but not replaced. Recheck today was 1.5. Will replace. Bradycardia * Junctional at times but for the most part sinus bradycardia with a heart rate in the 40s. Does take a 12.5 mg of metoprolol tartrate at home. That will be held. Cardiology on consultation. Chronic conditions: * coronary artery disease-this appears stable at this time * essential hypertension-patient's blood pressure medications will be held at this time due to hypotension, she will be reevaluated for restart of her medications in the near future * degenerative joint disease lumbar spine * Psoriatic arthritis: Had been on Humira in the past but has some stopped about a month ago. Has been on prednisone under the guidance of her lubrication servicer. Up since changed over to hydrocortisone. Eventually weaned down to her daily prednisone dose. I did advise patient follow-up with her lubrication servicer, however, she was not keen on going back is her physician is up in [place]. VTE prophylaxis: SQ heparin. Charges/Coding Visit Charges Inpatient E&M: 95084 Subs Hosp L2
--- NOTE | 2023-11-30 07:15 | PCM.RX.CS ---
Consult Antibiotic Management Pharmacy has been consulted to manage selected antibiotic: Vancomycin Type of Intervention Type of Consult: Follow-up Suspected Infection Suspected Infection: Sepsis (UTI) Prior Doses of Antibiotics Prior Doses of Antibiotics Received/Current Regimen: Vancomycin 2000 mg IV given 11/29/23 @ 1356, Vancomycin 750 mg IV given 11/30/23 @ 0345, patient is alson on meropenem Labs Labs: Sodium 146 mmol/L (136-145) H 11/30/23 03:55 Potassium 4.3 mmol/L (3.5-5.1) 11/30/23 03:55 Chloride 118 mmol/L (98-107) H 11/30/23 03:55 Carbon Dioxide 24.0 mmol/L (21.0-32.0) 11/30/23 03:55 Anion Gap 4 (5-15) L 11/30/23 03:55 BUN 25 mg/dL (7-18) H 11/30/23 03:55 Creatinine 0.78 mg/dL (0.55-1.02) 11/30/23 03:55 Est GFR (MDRD) Af Amer 93 mL/min (>60) 11/30/23 03:55 Est GFR (MDRD) Non-Af 77 mL/min (>60) 11/30/23 03:55 BUN/Creatinine Ratio 32.1 RATIO (10-20) H 11/30/23 03:55 Glucose 163 mg/dL (74-106) H 11/30/23 03:55 Microbiology Microbiology: Microbiology 11/29/23 12:19 Mucosa - Nasopharyngeal SARS-CoV-2, Influenza & RSV (PCR) - Final Dosing Weight Weight used for dosin.2 kg Estimated Creatinine Clearance Estimated Creatinine Clearance: 72 Goal Trough Goal Trough: 15-20 mcg/mL Pharmacy Plan for Drug Dosing Pharmacy Plan for Drug Dosing: Patient with significant improvement in renal function, increase dose to recommended dose for new renal function per policy, 1500 mg Q12H. Pharmacy Service will continue to monitor and adjust dosing as required. Follow-Up Labs Follow-Up Labs: Trough: Vancomycin Date/Time Labs Ordered Labs to be done on [date and time ordered]: 12/01/23 @ 0981
[2023-11-30 07:28] LABS: Magnesium 1.5 mg/dL (1.6-2.6)
[2023-11-30] MEDS: Aspirin 81 MG TAB.CHEW PO (07:55)
[2023-11-30] MEDS: Clopidogrel Bisulfate 75 MG Tablet PO (07:55)
[2023-11-30] MEDS: KCL 20MEQ in 0.9% NS 20 MEQ/1,000 ML IV.SOLN. 75 MEQ IV (07:55)
[2023-11-30] MEDS: Heparin Injection (Vial) 5,000 UNIT/ML VIAL 5000 UNIT SC ×2 (07:56→21:32)
[2023-11-30] MEDS: Polyethylene Glycol 3350 17 GM PACKET PO (07:56)
[2023-11-30] MEDS: Meropenem 1 GM in 0.9% Normal Saline (100mL MB+) 100 ML IV ×3 (08:19→21:33)
[2023-11-30] MEDS: Vancomycin HCl 1,500 MG in 0.9% Normal Saline (500mL Bag) 500 ML 250 MG IV ×2 (09:34→21:40)
[2023-11-30] MEDS: HYDROcodone Bitartrate/Apap 5/325 Tablet PO ×2 (09:34→21:34)
[2023-11-30] MEDS: Buprenorphine 15 MCG PATCH.TDWK 1 PATCH TD (09:37)
--- NOTE | 2023-11-30 10:06 | PN.CC_ITS ---
Objective Data Objective Data Vital Signs: Vital Signs Last response Temperature 36.8 C 11/30/23 10:00 Temperature Source Core 11/30/23 10:00 Pulse Rate 83 11/30/23 10:00 Pulse Strength Weak (1+) 11/30/23 08:00 Respiratory Rate 17 11/30/23 10:00 Respiratory Effort Normal, Non-Labored 11/30/23 08:00 Respiratory Depth Shallow 11/30/23 08:00 Respiratory Pattern Tachypnea 11/30/23 08:00 Blood Pressure 99/39 L 11/30/23 10:00 Blood Pressure Mean 59 11/30/23 10:00 Blood Pressure Source Monitor 11/30/23 10:00 Blood Pressure Position Semi-Fowlers 11/30/23 10:00 Blood Pressure Location Left Arm 11/30/23 10:00 Pulse Ox 100 11/30/23 10:00 Oxygen Delivery Method Nasal Cannula 11/30/23 10:00 Oxygen Flow Rate (L/min) 4 11/30/23 10:00 I&O: I&O Last 24 Hours 3 11/29/23 11/29/23 11/30/23 11:59 23:59 11:59 Intake Total 250 / 4372.69 4113.29 / 4372.69 1624.20 / 1624.20 Output Total 850 / 850 1125 / 1125 Balance 250 / 3522.69 3263.29 / 3522.69 499.20 / 499.20 I&O: Total Stay 11/29/23 11:35 thru 11/30/23 09:58 Intake Total 5987.49 Output Total 1975 Balance 4012.49 Current Meds Ordered / Administered: Current meds ordered / Administered Generic Name Dose Route Start Last Admin Trade Name Freq PRN Reason Stop Dose Admin Acetaminophen 650 mg 11/29/23 16:48 11/29/23 17:35 Acetaminophen 325 Mg Tablet PO 650 mg Q6H PRN PRN Administration Pain 1-10 Or Fever >100.7 Hydrocodone Bitart/Acetaminophen 1 tablet 11/29/23 22:00 11/30/23 09:34 Hydrocodone Bitartrate/Apap 5/325 Tablet PO 1 tablet BID RUTHIE Administration Albuterol/Ipratropium 3 ml 11/29/23 16:48 11/30/23 06:55 Ipratropium/Albuterol Sulfate 3 Ml Ampul.Neb INHALATION 3 ml Q6H.RT RUTHIE Administration Aspirin 81 mg 11/30/23 08:00 11/30/23 07:55 Aspirin 81 Mg Tab.Chew PO 81 mg DAILY@0800 RUTHIE Administration Atorvastatin Calcium 40 mg 11/29/23 22:00 11/29/23 21:08 Atorvastatin Calcium 40 Mg Tablet PO 40 mg QHS RUTHIE Administration Buprenorphine 1 patch 11/30/23 10:00 11/30/23 09:37 Buprenorphine 15 Mcg Patch.Tdwk TD 1 patch Justice@1000 RUTHIE Administration Clopidogrel Bisulfate 75 mg 11/30/23 10:00 11/30/23 07:55 Clopidogrel Bisulfate 75 Mg Tablet PO 75 mg DAILY RUTHIE Administration Heparin Sodium (Porcine) 5,000 unit 11/29/23 22:00 11/30/23 07:56 Heparin Injection (Vial) 5,000 Unit/Ml Vial SC 5,000 unit Q12 RUTHIE Administration Hydrocortisone Sodium Succinate 100 mg 11/29/23 18:30 11/30/23 05:45 Hydrocortisone Sod Succinate 100 Mg/2 Ml Vial IV 100 mg Q8 RUTHIE Administration Norepinephrine Bitartrate 8 mg 250 mls @ 9.375 mls/hr 11/29/23 14:15 11/30/23 06:00 / Sodium Chloride CONT INF 0 mcg/min .[id number] RUTHIE 0 mls/hr Titration Protocol 5 MCG/MIN Potassium Chloride/Sodium Chloride 20 meq in 1,000 mls @ 75 mls/hr 11/29/23 16:48 11/30/23 07:55 IV 75 mls/hr .[id number] RUTHIE Administration Vancomycin IV-PHARMACY TO DOSE 500 mls @ 250 mls/hr 11/29/23 16:48 1 each/ Sodium Chloride IV PRN PRN Rx to Dose Protocol Sodium Chloride 250 mls @ 15 mls/hr 11/29/23 17:07 11/30/23 08:34 IV 0 mls/hr .[id number] PRN Infusion Additional IVPB Infusion Sodium Chloride 250 mls @ 15 mls/hr 11/29/23 17:07 IV .[id number] PRN Saline Flush Albumin Human 25 gm in 100 mls @ 60 mls/hr 11/29/23 19:00 11/30/23 03:50 IV 11/30/23 12:39 Infused Q8H RUTHIE Infusion Vancomycin HCl 1,500 mg/ 530 mls @ 250 mls/hr 11/30/23 10:00 11/30/23 09:34 Sodium Chloride IV 250 mls/hr Q12H RUTHIE Administration Meropenem 1 gm/ Sodium 120 mls @ 33 mls/hr 11/30/23 07:30 11/30/23 08:19 Chloride IV 33 mls/hr Q8 RUTHIE Administration Melatonin 10 mg 11/29/23 16:59 11/29/23 21:16 Melatonin 10 Mg Tablet PO 10 mg HS PRN Administration Sleep Ondansetron HCl 4 mg 11/29/23 16:48 Ondansetron 4 Mg/2 Ml Vial IV Q8H PRN PRN NAUSEA/VOMITING Oxymetazoline HCl 2 spray 11/29/23 16:48 11/29/23 21:49 Oxymetazoline 0.05% 1 [place].Btl NASAL 2 spray X1 PRN Administration NASAL CONGESTION Polyethylene Glycol 17 gm 11/30/23 10:00 11/30/23 07:56 Polyethylene Glycol 3350 17 Gm Packet PO 17 gm DAILY RUTHIE Administration Sodium Chloride 10 - 40 ml 11/29/23 17:07 11/30/23 05:45 0.9% Saline Lock 10 Ml Syringe IV 20 ml UD PRN Administration SALINE FLUSH Tizanidine HCl 4 mg 11/29/23 22:00 11/29/23 21:49 Tizanidine Hcl 2 Mg Tablet PO 4 mg QHS RUTHIE Administration Vancomycin Protocol 1 lab 12/01/23 07:30 Vancomycin Trough/Random Due [facility] 12/01/23 11:30 DAILY [facility] Lab / Micro Data 11/30/23 03:55 11/30/23 03:55 Labs: Laboratory Results - last 24 hr 11/29/23 11:54: WBC 21.6 H, RBC 3.79 L, Hgb 11.6 L, Hct 37.8, MCV 99.7 H, MCH 30.6, MCHC 30.7 L, RDW Std Deviation 53.1 H, RDW Coeff of Sonya 14.5, Plt Count 270, MPV 11.0, Immature Gran % (Auto) 1.000 H, Neut % (Auto) 94.0 H, Lymph % (Auto) 1.0 L, [place] % (Auto) 2.4, Eos % (Auto) 1.2, Baso % (Auto) 0.4, Absolute Neuts (auto) 20.3 H, Absolute Lymphs (auto) 0.21 L, Nucleated RBC % 0, Differential Comment SCANNED, PT 15.4 H, INR 1.2, APTT 28.8, Sodium 140, Potassium 2.9 L, Chloride 105, Carbon Dioxide 29.0, Anion Gap 6, BUN 34 H, Creatinine 1.34 H, Estim Creat Clear Calc 42.98, Est GFR (MDRD) Af Amer 50 L, Est GFR (MDRD) Non-Af 41 L, BUN/Creatinine Ratio 25.4 H, Glucose 106, Lactic Acid 3.1 H*, Calcium 8.9, Total Bilirubin 0.90, AST 28, ALT 23, Alkaline Phosphatase 68, Troponin I High Sens 28, Total Protein 6.8, Albumin 2.8 L, Globulin 4.0, Albumin/Globulin Ratio 0.7 L 11/29/23 12:19: Urine Color Whit, Urine Clarity Sl. Cloudy, Urine pH 5.0, Ur Specific [place] 1.020, Urine Protein 100 H, Urine Glucose (UA) Normal, Urine Ketones 15 H, Urine Occult Blood 25 H, Urine Nitrite Positive H, Urine Bilirubin 3 H, Urine Urobilinogen 1 H, Ur Leukocyte Esterase 500 H, Urine RBC 0 SEEN, Urine WBC 10-25 SEEN, Ur Squamous Epith Cells 0 SEEN, Urine Bacteria 2+, Urine Mucus 0 SEEN 11/29/23 16:14: Lactic Acid 2.2 H* 11/29/23 19:05: Phosphorus 2.7, Magnesium 1.1 L, Troponin I High Sens 37, B-Natriuretic Peptide 711.6 H 11/30/23 03:55: WBC 19.6 H, RBC 2.98 L, Hgb 9.3 L, Hct 30.0 L, MCV 100.7 H, MCH 31.2, MCHC 31.0 L, RDW Std Deviation 54.5 H, RDW Coeff of Sonya 14.8 H, Plt Count 188, MPV 10.5, Immature Gran % (Auto) 1.200 H, Neut % (Auto) 92.2 H, Lymph % (Auto) 4.7 L, [place] % (Auto) 1.5, Eos % (Auto) 0.2, Baso % (Auto) 0.2, Absolute Neuts (auto) 18.1 H, Absolute Lymphs (auto) 0.93, Nucleated RBC % 0, Sodium 146 H, Potassium 4.3, Chloride 118 H, Carbon Dioxide 24.0, Anion Gap 4 L, BUN 25 H, Creatinine 0.78, Estim Creat Clear Calc 72.35, Est GFR (MDRD) Af Amer 93, Est GFR (MDRD) Non-Af 77, BUN/Creatinine Ratio 32.1 H, Glucose 163 H, Calcium 7.6 L, Magnesium 1.5 L Micro: Microbiology 11/29/23 12:19 Mucosa - Nasopharyngeal SARS-CoV-2, Influenza & RSV (PCR) - Final Imaging Radiology Impression Chest X-Ray 11/29/23 12:50 IMPRESSION: Acute and chronic interstitial lung disease. Electronically Signed: Amandeep Miller MD at 13:44 EST Reading Location ID and State: [facility] / [place] Tel , Service support , Chest X-Ray 11/29/23 16:23 IMPRESSION: 1. Diffuse interstitial lung disease. 2. New small bilateral pleural effusions. Electronically Signed: Amandeep Miller MD at 16:48 EST , Assessment and Plan . Assessment and plan: Critical Care Time: The entirety of this encounter was done via Telemedicine
--- NOTE | 2023-11-30 10:22 | CT_ITS ---
STUDY: CT ABDOMEN AND PELVIS WITH CONTRAST REASON FOR EXAM: Female, 73 years old. abdominal pain with UTI and septic shock. RADIATION DOSAGE (If Supplied By Facility): CTDIvol = ( 20.15 ) mGy, DLP = ( 1354.20 ) mGycm TECHNIQUE: Transaxial images were obtained from the dome of the diaphragm to the symphysis pubis without oral contrast. IV 100mL Isovue-370 was administered. Sagittal and coronal images were reconstructed. Individualized dose optimization techniques were used for this CT. COMPARISON: None. FINDINGS: Chronic interstitial changes in lung bases with interstitial edema, small effusions and atelectasis. There is cardiomegaly. There is decreased attenuation of the liver consistent with steatosis. Gallbladder shows wall thickening and enhancement with pericholecystic fluid suggestive of cholecystitis. No gallstones are identified. Normal spleen. Normal pancreas. Normal bilateral adrenal glands. No obstructive uropathy, or suspicious solid renal lesion, there is a simple 5 cm left renal cyst. Normal visualized stomach. Normal small intestine. Scattered colonic diverticula without CT evidence of acute diverticulitis. There is non-visualization of the appendix. There is diffuse atherosclerotic calcification of the abdominal aorta with elongation and tortuosity, but without a demonstrated aneurysm. Normal inferior vena cava. Normal retroperitoneum. Bladder is collapsed around a [place] catheter. The uterus is present, the endometrium cannot be accurately evaluated with CT. There is a 2.81 cm right adnexal region cyst and a small amount of associated fluid around the cystic mass and within the pelvis. Normal abdominal wall. Degenerative changes noted in the lumbar spine and pelvis CT/Abdomen/Pelvis W IV Cont ONLY IMPRESSION: Fatty liver Gallbladder wall thickening and enhancement with pericholecystic fluid. No biliary dilatation or gallstones noted. Findings suggest acalculous cholecystitis. Please correlate with lab results and physical findings Simple left renal cyst, no specific follow-up needed Scattered colonic diverticula, no CT evidence of acute diverticulitis Uterus is present, the endometrium cannot be accurately evaluated with CT. There is a 2.8 cm right adnexal cyst, dedicated pelvic ultrasound recommended for more thorough evaluation of the pelvis Electronically Signed: Nirmal Victor MD at 13:15 EST ,
--- NOTE | 2023-11-30 10:38 | ECHOD_ITS ---
Reason For Study: Severe bradycardia Procedure This was a 2D Doppler, Color Flow transthoracic echocardiogram. Exam performed portable in ICU/CCU. Left Ventricle Normal LV size. Mild concentric left ventricular hypertrophy. The left ventricular ejection fraction is 65 %. Stage 2 diastolic dysfunction. Right Ventricle Normal right ventricle. Atria The left atrium is moderately enlarged. The right atrium is mildly enlarged. Mitral Valve Mild (1+) mitral valve insufficiency. Tricuspid Valve Mild to moderate (1-2+) tricuspid valve insufficiency. Right ventricular systolic pressure estimated to be 79 mmHg. Aortic Valve Aortic sclerosis, no stenosis. Pulmonic Valve The pulmonic valve is not well visualized. Trivial pulmonic valve insufficiency. Great Vessels Normal sized aortic root. Pericardium/Pleural No pericardial effusion. MMode/2D Measurements & Calculations LVIDd: 4.6 cm IVSd: 1.2 cm Ao root diam: 2.9 cm LVIDs: 2.3 cm LVPWd: 1.1 cm RVDd: 3.3 cm FS: 50.0 % LAV(MOD-bp): 73.5 ml LVAd ap4: 21.9 cm2 LVAd ap2: 25.0 cm2 LAV(MOD-bp) Indexed: 36.4 ml/m2 LVLd ap4: 7.2 cm LVLd ap2: 7.3 cm LAV(MOD-sp2): 56.9 ml EDV(MOD-sp4): 55.8 ml EDV(MOD-sp2): 72.7 ml LAV(MOD-sp4): 91.5 ml EDV(sp4-el): 56.3 ml EDV(sp2-el): 73.2 ml LVAs ap4: 12.9 cm2 LVAs ap2: 9.5 cm2 LVLs ap4: 6.1 cm LVLs ap2: 5.8 cm ESV(MOD-sp4): 24.1 ml ESV(MOD-sp2): 14.7 ml ESV(sp4-el): 23.1 ml ESV(sp2-el): 13.2 ml EF(MOD-sp4): 56.9 % EF(MOD-sp2): 79.8 % EF(sp4-el): 59.0 % SV(MOD-sp4): 31.8 ml SV(MOD-sp2): 58.0 ml SV(sp4-el): 33.2 ml LA dimension(2D): 5.0 cm LA A4 area: 26.5 cm2 RA A4 area: 18.5 cm2 TAPSE: 2.0 cm Time Measurements MV dec time: 0.15 sec Doppler Measurements & Calculations MV E max driss: 140.0 cm/sec Lat Peak E' Driss: 8.2 cm/sec Med Peak E' Driss: 9.8 cm/sec MV A max driss: 108.1 cm/sec E/E' lat: 17.2 E/E' med: 14.3 MV E/A: 1.3 MV V2 max: 157.6 cm/sec MV P1/2t max driss: 153.8 cm/sec Ao V2 max: 145.2 cm/sec MV max P.9 mmHg MV P1/2t: 55.5 msec Ao max P.4 mmHg MV V2 mean: 72.5 cm/sec MV dec slope: 811.7 cm/sec2 Ao V2 mean: 93.5 cm/sec MV mean P.7 mmHg Ao mean P.1 mmHg MV V2 VTI: 43.0 cm MVA(P1/2t): 4.0 cm2 Ao V2 VTI: 36.3 cm AV (velocity ratio): 0.68 LV V1 max: 101.8 cm/sec PA V2 max: 109.0 cm/sec TR max driss: 400.1 cm/sec LV V1 max P.1 mmHg TR max P.0 mmHg LV V1 mean P.2 mmHg LV V1 mean: 70.5 cm/sec LV V1 VTI: 24.7 cm ECHO/Echo Complete Interpretation Summary Mild concentric left ventricular hypertrophy. The left ventricular ejection fraction is 65 %. Stage 2 diastolic dysfunction. The left atrium is moderately enlarged. The right atrium is mildly enlarged. Mild (1+) mitral valve insufficiency. Mild to moderate (1-2+) tricuspid valve insufficiency. Right ventricular systolic pressure estimated to be 79 mmHg. Ordering Physician: Vitaliy Grider Referring Physician: Anders Williamson M.D. Performed By: Yary Calero RDCS
[2023-11-30] MEDS: Magnesium Sulfate 2 GM in Dextrose 5%-Water (100mL Bag) 100 ML IV (10:49)
[2023-11-30 11:28] LABS: T4 Free Direct 1.06 ng/dL (0.76-1.46); Thyroid Stim Hormone (TSH) 0.13 uIU/mL (0.358-3.74); Troponin-I HS 33 pg/mL (3.0-54.0)
--- NOTE | 2023-11-30 11:28 | PCM.CONS.C ---
Assessment & Plan Assessment/Plan (1) Bradycardia: PLAN: This could be symptomatic bradycardia. Patient has had episodes of near syncope. Continue telemonitoring. Currently she is being treated for sepsis. If required we could consider temporary pacemaker. However at this time she does not need it. She may be a candidate for a permanent pacemaker once her sepsis resolves. Agree with holding her beta-carmen. Agree with checking a 2D echo. High-sensitivity troponin was negative upon presentation. HPI Consult Data Date of Consult: 11/30/23 HPI Narrative Reason for Consultation: Bradycardia HPI Narrative: ISIDRA WARREN, is a 73 F who presents fever, nausea, vomiting and was found to be in septic shock. She is being treated in the ICU for this. She has history of CAD treated with stent to the RCA in May 2023. Her EF was preserved at that time. Cardiology consult was requested as patient has been having episodes of sinus bradycardia with a heart rate in the 30s. On Friday patient apparently had episodes of near syncope. Initially she said that she had it in the hospital as well but later felt that she had it after the hospital and not when she has been here. She states that she has had episodes of dizziness on and off for several years. They happen often when she is just sitting in her chair. Last about 2 minutes. Telemetry revealed episodes of sinus bradycardia with a heart rate in the 30s. [facility] Medical History Abrasion Ambulates with cane Arthritis Atherosclerotic heart disease of [place] coronary artery without angina pectoris Back pain Back problem C. difficile colitis Diastolic heart failure Elevated glucose Gastric reflux GERD (gastroesophageal reflux disease) Hearing difficulty High blood pressure High cholesterol History of diverticulitis History of hiatal hernia History of steroid therapy History of ulceration HTN (hypertension) IBS (irritable bowel syndrome) Low back pain Neuropathy Obesity Osteoarthritis Osteopenia Psoriatic arthritis Smoker Uses wheelchair Walker as ambulation aid Wears glasses Home Medications omega-3 fatty acids-fish oil 340 mg-1,000 mg capsule (Fish Oil) 1,000 mg PO DAILY supplment 11/10/15 [History Last Taken 10/11/23] tizanidine 4 mg tablet 4 mg PO QHS muscle relaxer 11/10/15 [History Last Taken 11/28/23] calcium carbonate 600 mg calcium (1,500 mg) tablet 2,000 mg PO DAILY bone health 11/17/15 [History Last Taken 10/11/23] cholecalciferol (vitamin D3) 25 mcg (1,000 unit) tablet (Vitamin D3) 1,000 unit PO BID supplement 11/17/15 [History Last Taken 10/11/23] folic acid 1 mg tablet 1 mg PO DAILY 04/05/22 [History Last Taken Unknown] melatonin 10 mg capsule 10 mg PO HS PRN Sleep 04/05/22 [History Last Taken 10/10/23] prednisone 5 mg tablet 1 tab PO DAILY 04/30/22 [History Last Taken Unknown] aspirin 81 mg chewable tablet 81 mg PO DAILY@0800 stent #0 tabs 06/13/23 [Rx Last Taken 10/11/23] miconazole nitrate 2 % topical powder (Desenex) 1 applic topical BID #0 grams 06/13/23 [Rx Last Taken 10/10/23] oxymetazoline 0.05 % nasal spray (Nasal [place] (oxymetazoline)) 2 spray NASAL X1 PRN NASAL CONGESTION #0 mL 06/13/23 [Rx Last Taken 10/10/23] polyethylene glycol 3350 17 gram oral powder packet 17 g PO DAILY #0 ea 06/13/23 [Rx Last Taken 10/10/23] Bedside commode #1 ea 07/16/23 [Rx Last Taken Unknown] hydrochlorothiazide 25 mg tablet 25 mg PO DAILY #1 TAB 07/28/23 [Rx Last Taken Unknown] atorvastatin 40 mg tablet 40 mg PO QHS #90 tabs 08/04/23 [Rx Last Taken Unknown] clopidogrel 75 mg tablet (Plavix) 75 mg PO DAILY #90 tabs 08/04/23 [Rx Last Taken Unknown] metoprolol tartrate 25 mg tablet 12.5 mg (1/2 x 25 mg) PO BID #90 tabs 08/04/23 [Rx Last Taken 11/28/23] fluticasone propionate 50 mcg/actuation nasal spray,suspension 2 spray intranasal DAILY #16 grams 09/08/23 [Rx Last Taken Unknown] nebulizers #1 ea 11/03/23 [Rx Last Taken Unknown] dextromethorphan-guaifenesin 30 mg-600 mg tablet extended [id number] hr (Mucinex DM) 2 tab PO BID PRN cough 11/10/23 [History Last Taken Unknown] hydrocodone 10 mg-acetaminophen 325 mg tablet 0.5 tab PO BID Pain 10 days #10 tabs 11/28/23 [Rx Last Taken Unknown] methenamine hippurate 1 gram tablet 1 g PO BID #30 tabs 11/28/23 [Rx Last Taken Unknown] nitrofurantoin monohydrate/macrocrystals 100 mg capsule 100 mg PO Q12 #6 CAPSULES 11/28/23 [Rx Last Taken Unknown] buprenorphine 15 mcg/hour weekly transdermal patch 1 patch transdermal Q7D 11/29/23 [History Last Taken Unknown] fluconazole 150 mg tablet 150 mg PO DAILY 11/29/23 [History Last Taken Unknown] ipratropium 0.5 mg-albuterol 3 mg (2.5 mg base)/3 mL nebulization soln 3 ml inhalation Q6H 11/29/23 [History Last Taken Unknown] lansoprazole 30 mg capsule,delayed release 30 mg PO DAILY 11/29/23 [History Last Taken Unknown] losartan 50 mg tablet 50 mg PO DAILY 11/29/23 [History Last Taken Unknown] potassium chloride 20 mEq oral packet 20 meq PO DAILY 11/29/23 [History Last Taken Unknown] Allergy/AdvReac Type Severity Reaction Status Date / Time duloxetine [From Cymbalta] Allergy Intermediate Swelling Verified 11/29/23 11:36 erythromycin base Allergy Nausea/Vom/ Verified 11/29/23 11:36 Diarrhea pregabalin [From Lyrica] Allergy Swelling Verified 11/29/23 11:36 Family History Mother Diabetes Arthritis Heart disease CVA (cerebral vascular accident) Hypertension History of blood transfusion Father Pancreatic cancer Alcoholism Peptic ulcer disease Son Seizures Suicide attempt Surgical History H/O laminectomy History of appendectomy History of appendectomy History of breast biopsy History of colonoscopy (05/01/02) History of foot surgery History of spinal surgery Stented coronary artery (06/03/23) Social History Smoking Status: Former smoker how long ago did patient quit smoking: about 2 months ago alcohol intake: never substance use type: does not use what type of physical activity do you participate in: none seatbelt use: always do you feel safe at home: Yes Physical Exam Const alert and oriented x3 HEENT normocephalic Eyes no scleral icterus Resp Resp Narrative: Mild tachypnea. Cardio regular rate and regular rhythm Risk Stratification Risk Stratification Applicable: No Charges/Coding Visit Charges Inpatient E&M: 94937 Init Hosp L2 Objective Data Vital Signs: Vital Signs Temp Pulse Resp BP Pulse Ox O2 Del Method O2 Flow Rate 98.3 F 83 17 99/39 L 100 Nasal Cannula 4 11/30/23 10:00 11/30/23 10:00 11/30/23 10:00 11/30/23 10:00 11/30/23 10:00 11/30/23 10:00 11/30/23 10:15 Oxygen Flow Rate (L/min) 4 Oxygen Delivery Method Nasal Cannula Weight: 216 lb 7.903 oz Body Mass Index (BMI) 36.9 Intake & Output: Intake and Output for Last 24 Hours 11/28/23 11/29/23 11/30/23 23:59 23:59 23:59 Intake Total 4363.29 / 4372.69 1837.95 / 1837.95 Output Total 850 / 850 1125 / 1125 Balance 3513.29 / 3522.69 712.95 / 712.95 Lab / Micro Data 11/30/23 03:55 11/30/23 03:55 Labs: Laboratory Results - last 24 hr 11/29/23 11:54: WBC 21.6 H, RBC 3.79 L, Hgb 11.6 L, Hct 37.8, MCV 99.7 H, MCH 30.6, MCHC 30.7 L, RDW Std Deviation 53.1 H, RDW Coeff of Sonya 14.5, Plt Count 270, MPV 11.0, Immature Gran % (Auto) 1.000 H, Neut % (Auto) 94.0 H, Lymph % (Auto) 1.0 L, [place] % (Auto) 2.4, Eos % (Auto) 1.2, Baso % (Auto) 0.4, Absolute Neuts (auto) 20.3 H, Absolute Lymphs (auto) 0.21 L, Nucleated RBC % 0, Differential Comment SCANNED, PT 15.4 H, INR 1.2, APTT 28.8, Sodium 140, Potassium 2.9 L, Chloride 105, Carbon Dioxide 29.0, Anion Gap 6, BUN 34 H, Creatinine 1.34 H, Estim Creat Clear Calc 42.98, Est GFR (MDRD) Af Amer 50 L, Est GFR (MDRD) Non-Af 41 L, BUN/Creatinine Ratio 25.4 H, Glucose 106, Lactic Acid 3.1 H*, Calcium 8.9, Total Bilirubin 0.90, AST 28, ALT 23, Alkaline Phosphatase 68, Troponin I High Sens 28, Total Protein 6.8, Albumin 2.8 L, Globulin 4.0, Albumin/Globulin Ratio 0.7 L 11/29/23 12:19: Urine Color Whit, Urine Clarity Sl. Cloudy, Urine pH 5.0, Ur Specific [place] 1.020, Urine Protein 100 H, Urine Glucose (UA) Normal, Urine Ketones 15 H, Urine Occult Blood 25 H, Urine Nitrite Positive H, Urine Bilirubin 3 H, Urine Urobilinogen 1 H, Ur Leukocyte Esterase 500 H, Urine RBC 0 SEEN, Urine WBC 10-25 SEEN, Ur Squamous Epith Cells 0 SEEN, Urine Bacteria 2+, Urine Mucus 0 SEEN 11/29/23 16:14: Lactic Acid 2.2 H* 11/29/23 19:05: Phosphorus 2.7, Magnesium 1.1 L, Troponin I High Sens 37, B-Natriuretic Peptide 711.6 H 11/30/23 03:55: WBC 19.6 H, RBC 2.98 L, Hgb 9.3 L, Hct 30.0 L, MCV 100.7 H, MCH 31.2, MCHC 31.0 L, RDW Std Deviation 54.5 H, RDW Coeff of Sonya 14.8 H, Plt Count 188, MPV 10.5, Immature Gran % (Auto) 1.200 H, Neut % (Auto) 92.2 H, Lymph % (Auto) 4.7 L, [place] % (Auto) 1.5, Eos % (Auto) 0.2, Baso % (Auto) 0.2, Absolute Neuts (auto) 18.1 H, Absolute Lymphs (auto) 0.93, Nucleated RBC % 0, Sodium 146 H, Potassium 4.3, Chloride 118 H, Carbon Dioxide 24.0, Anion Gap 4 L, BUN 25 H, Creatinine 0.78, Estim Creat Clear Calc 72.35, Est GFR (MDRD) Af Amer 93, Est GFR (MDRD) Non-Af 77, BUN/Creatinine Ratio 32.1 H, Glucose 163 H, Calcium 7.6 L, Magnesium 1.5 L 11/30/23 10:50: Troponin I High Sens 33, TSH 0.13 L, Free T4 1.06 Micro: Microbiology 11/29/23 12:19 Mucosa - Nasopharyngeal SARS-CoV-2, Influenza & RSV (PCR) - Final Cardiology Labs/Tests 11/29/23 11:54: WBC 21.6 H, RBC 3.79 L, Hgb 11.6 L, Hct 37.8, MCV 99.7 H, MCH 30.6, MCHC 30.7 L, Plt Count 270, MPV 11.0, Immature Gran % (Auto) 1.000 H, Neut % (Auto) 94.0 H, Lymph % (Auto) 1.0 L, [place] % (Auto) 2.4, Eos % (Auto) 1.2, Baso % (Auto) 0.4, Absolute Neuts (auto) 20.3 H, Nucleated RBC % 0, PT 15.4 H, INR 1.2, APTT 28.8, Sodium 140, Potassium 2.9 L, Chloride 105, Carbon Dioxide 29.0, Anion Gap 6, BUN 34 H, Creatinine 1.34 H, Est GFR (MDRD) Af Amer 50 L, Est GFR (MDRD) Non-Af 41 L, BUN/Creatinine Ratio 25.4 H, Glucose 106, Lactic Acid 3.1 H*, Calcium 8.9, Total Bilirubin 0.90 11/29/23 12:19: Urine Color Whit, Urine Clarity Sl. Cloudy, Urine pH 5.0, Ur Specific [place] 1.020, Urine Protein 100 H, Urine Glucose (UA) Normal, Urine Ketones 15 H, Urine Occult Blood 25 H, Urine Nitrite Positive H, Urine Bilirubin 3 H, Urine Urobilinogen 1 H, Ur Leukocyte Esterase 500 H, Urine RBC 0 SEEN, Urine WBC 10-25 SEEN 11/29/23 16:14: Lactic Acid 2.2 H* 11/29/23 19:05: Phosphorus 2.7, Magnesium 1.1 L, B-Natriuretic Peptide 711.6 H 11/30/23 03:55: WBC 19.6 H, RBC 2.98 L, Hgb 9.3 L, Hct 30.0 L, MCV 100.7 H, MCH 31.2, MCHC 31.0 L, Plt Count 188, MPV 10.5, Immature Gran % (Auto) 1.200 H, Neut % (Auto) 92.2 H, Lymph % (Auto) 4.7 L, [place] % (Auto) 1.5, Eos % (Auto) 0.2, Baso % (Auto) 0.2, Absolute Neuts (auto) 18.1 H, Nucleated RBC % 0, Sodium 146 H, Potassium 4.3, Chloride 118 H, Carbon Dioxide 24.0, Anion Gap 4 L, BUN 25 H, Creatinine 0.78, Est GFR (MDRD) Af Amer 93, Est GFR (MDRD) Non-Af 77, BUN/Creatinine Ratio 32.1 H, Glucose 163 H, Calcium 7.6 L, Magnesium 1.5 L Rhythm: EKG: ECHO: Stress Test: Cardiac Cath: PCI: CT Surgery: Holter monitor: EPS: PPM: CXR: Chest CT Scan: Radiography Diagnostic Testing: Radiology Impression Chest X-Ray 11/29/23 12:50 IMPRESSION: Acute and chronic interstitial lung disease. Electronically Signed: Amandeep Miller MD at 13:44 EST , Chest X-Ray 11/29/23 16:23 IMPRESSION: 1. Diffuse interstitial lung disease. 2. New small bilateral pleural effusions. Electronically Signed: Amandeep Miller MD at 16:48 EST ,
[2023-11-30 11:31] LABS: Lactic Acid 3.7 mmol/L (0.4-1.9)
[2023-11-30] MEDS: Dextrose 5%-Lactated Ringers 1,000 ML 100 ML IV (12:57)
[2023-11-30 14:58] LABS: Reflex Lactate? Y
[2023-11-30 16:36] LABS: Lactic Acid 2.9 mmol/L (0.4-1.9)
[2023-11-30] MEDS: Budesonide Respules 0.5 MG/2 ML AMPUL.NEB. INHALATION (19:10)
[2023-11-30] MEDS: tiZANidine HCl 2 MG Tablet 4 MG PO (21:32)
[2023-11-30] MEDS: Atorvastatin Calcium 40 MG Tablet PO (21:32)
[2023-11-30] MEDS: Senna/Docusate Sodium 1 Tablet 2 TABLET PO (21:33)
[2023-11-30] MEDS: Oxymetazoline 0.05% 1 SPRAY SPRAY.BTL 2 SPRAY NASAL (21:34)
[2023-11-30] MEDS: MELATONIN 10 MG TABLET PO (21:34)
[2023-12-01] VITALS (33 sets, daily range): BP systolic 115–171; BP diastolic 55–78; PULSE 37–81; RESP 12–46; TEMP 36.7–38.8; O2SAT 91–100; BMI 38.2
[2023-12-01] MEDS: Dextrose 5%-Lactated Ringers 1,000 ML 100 ML IV (00:06)
[2023-12-01] MEDS: 0.9% Normal Saline (250mL Bag) 250 ML 15 ML IV (01:44)
[2023-12-01] MEDS: Ipratropium/Albuterol Sulfate 3 ML AMPUL.NEB INHALATION ×4 (01:45→19:29)
[2023-12-01] MEDS: Meropenem 1 GM in 0.9% Normal Saline (100mL MB+) 100 ML IV ×3 (04:08→20:30)
[2023-12-01] MEDS: Hydrocortisone Sod Succinate 100 MG/2 ML Vial IV (04:08)
[2023-12-01] MEDS: 0.9% Saline Lock 10 ML Syringe IV ×3 (04:08→12:40)
[2023-12-01 04:22] LABS: Absolute Lymphocyte Count 0.81 X10^3/uL (0.83-4.51); Absolute Neutrophil Count 16.9 X10^3/uL (2.0-7.7); Basophil# 0.02 X10^3/uL; Basophil% 0.1 % (0-1); Hematocrit 31.2 % (37-47); Hemoglobin 9.5 g/dL (12.0-15.0); Lymphocyte # 0.81 X10^3/ul (0.83-4.51); Lymphocyte % 4.3 % (19-41); Mean Corp Hgb Conc 30.4 g/dL (32-36); Mean Corpuscular Hgb 30.7 pg (27.0-32.0); Mean Platelet Vol. 11.6 fl (6.2-12.0); Monocyte# 0.75 X10^3/uL; NRBC Flagged by Analyzer 0 % (0-5); Neutrophil # 16.92 X10^3/uL (2.7-7.7); Neutrophil % 90.5 % (47-70); Platelet Count 206 K/mm3 (150-450); RBC Distribution Width CV 15.1 % (11.6-14.6); RBC Distribution Width SD 56.3 fl (35.1-43.9); Red Blood Count 3.09 M/mm3 (4.2-5.4); White Blood Count 18.7 K/mm3 (4.4-11.0)
[2023-12-01 04:40] LABS: Anion Gap 4 (5-15); BUN 22 mg/dL (7-18); BUN/Creat Ratio 30.9 RATIO (10-20); Calcium,Total 8.4 mg/dL (8.5-10.1); Chloride 116 mmol/L (98-107); Creatinine, Serum 0.71 mg/dL (0.55-1.02); EST Glomerular Filtration Rate 86 mL/min (>60); Est Glom Filt Rate - Afr Amer 104 mL/min (>60); Estimated Creatinine Clearance 73.47 ml/min; Glucose 232 mg/dL (74-106); Sodium Level 144 mmol/L (136-145)
[2023-12-01] MEDS: Budesonide Respules 0.5 MG/2 ML AMPUL.NEB. INHALATION ×2 (06:53→19:30)
--- NOTE | 2023-12-01 07:30 | PCM.PN.HOSP ---
Reason for Visit Reason for Visit: Diagnoses Sepsis, unspecified organism (11/29/23) Urinary tract infection, site not specified (11/29/23) Bradycardia, unspecified (11/29/23) Severe sepsis with septic shock (11/29/23) Subjective Subjective Patient is a 74-year-old lady who presented with nausea vomiting and generalized malaise. Patient was found to have acute cystitis with septic shock admitted to the intensive care unit for further management Objective Data Objective Data Vital Signs: Vital Signs Temp Pulse Resp BP Pulse Ox O2 Del Method O2 Flow Rate 98.3 F 57 L 28 H 171/65 H 94 Nasal Cannula 6 12/01/23 06:00 12/01/23 07:00 12/01/23 07:00 12/01/23 07:00 12/01/23 07:00 12/01/23 07:00 12/01/23 07:00 Oxygen Flow Rate (L/min) 6 Oxygen Delivery Method Nasal Cannula Weight: 101 kg Body Mass Index (BMI) 38.2 Intake & Output: Intake and Output for Last 24 Hours 11/29/23 11/30/23 12/01/23 23:59 23:59 23:59 Intake Total 4363.29 / 4372.69 4591.37 / 5041.37 640.17 / 640.17 Output Total 850 / 850 1600 / 2400 1400 / 1400 Balance 3513.29 / 3522.69 2991.37 / 2641.37 -759.83 / -759.83 Lab / Micro Data 12/01/23 04:10 12/01/23 04:10 Labs: Laboratory Results - last 24 hr 11/30/23 10:50: Lactic Acid 3.7 H*, Troponin I High Sens 33, TSH 0.13 L, Free T4 1.06 11/30/23 15:30: Lactic Acid 2.9 H* 12/01/23 04:10: WBC 18.7 H, RBC 3.09 L, Hgb 9.5 L, Hct 31.2 L, MCV 101.0 H, MCH 30.7, MCHC 30.4 L, RDW Std Deviation 56.3 H, RDW Coeff of Sonya 15.1 H, Plt Count 206, MPV 11.6, Immature Gran % (Auto) 1.100 H, Neut % (Auto) 90.5 H, Lymph % (Auto) 4.3 L, [place] % (Auto) 4.0, Eos % (Auto) 0.0, Baso % (Auto) 0.1, Absolute Neuts (auto) 16.9 H, Absolute Lymphs (auto) 0.81 L, Nucleated RBC % 0, Sodium 144, Potassium 4.0, Chloride 116 H, Carbon Dioxide 24.0, Anion Gap 4 L, BUN 22 H, Creatinine 0.71, Estim Creat Clear Calc 73.47, Est GFR (MDRD) Af Amer 104, Est GFR (MDRD) Non-Af 86, BUN/Creatinine Ratio 30.9 H, Glucose 232 H, Calcium 8.4 L Micro: Microbiology 11/29/23 12:19 Mucosa - Nasopharyngeal SARS-CoV-2, Influenza & RSV (PCR) - Final Radiography Diagnostic Testing: Radiology Impression Abdomen/Pelvis CT 11/30/23 10:22 IMPRESSION: Fatty liver Gallbladder wall thickening and enhancement with pericholecystic fluid. No biliary dilatation or gallstones noted. Findings suggest acalculous cholecystitis. Please correlate with lab results and physical findings Simple left renal cyst, no specific follow-up needed Scattered colonic diverticula, no CT evidence of acute diverticulitis Uterus is present, the endometrium cannot be accurately evaluated with CT. There is a 2.8 cm right adnexal cyst, dedicated pelvic ultrasound recommended for more thorough evaluation of the pelvis Electronically Signed: Nirmal Victor MD at 13:15 EST Reading Location ID and State: [address] [place] [address] , Service support , Physical Exam Narrative GENERAL: cooperative HEENT: Atraumatic; normocephalic EYES; Anicteric, Normal Conjunctiva NECK; supple, normal thyroid, RESPIRATORY: Diminished to auscultation CARDIOVASCULAR: Regular S1 S2, GI: soft, normoactive bowel sounds, : No Renal angle tenderness; EXTREMITIES: No edema, no clubbing, MUSCULOSKELETAL: no muscle wasting NEURO: Awake; no lateralizing signs. SKIN: No Rash PSYCH; Flat affect Assessment & Plan Assessment/Plan (1) Acute UTI: PLAN: Plan Patient is a 74-year-old lady who presented with nausea vomiting and generalized malaise. Patient was found to have acute cystitis with septic shock admitted to the intensive care unit for further management 1. Septic shock ? Secondary to acute cystitis patient has history of recent ESBL E. coli managed with aggressive IV fluid resuscitation, broad-spectrum antibiotic therapy with meropenem after cultures have been sent we will follow-up on result 2. Acute kidney injury ? Present on admission resolved with IV hydration 3. Hypokalemia -Corrected per protocol 4. Hypomagnesemia -Corrected for protocol 5. Bradycardia ? Junctional patient was on metoprolol held seen in consultation by cardiology 6. Coronary artery disease ? Patient is on guideline directed medical therapy did continue 7. Essential hypertension ? Antihypertensives held on admission due to relative hypotension 8. Dyslipidemia -Patient is on statin therapy, continued at home dose 9. Degenerative joint disease ? Pain meds as needed 10. Psoriatic arthritis ? Patient was previously on Humira which has been held for almost a month currently on prednisone this was changed to hydrocortisone 11. DVT prophylaxis ? SC heparin Time spent in the patient's overall evaluation,decision-making process, review of diagnostic data, adjustment of management, discussion with other providers, nursing nursing and ancillary staff involved in patient's care documentation, 50 Minutes Charges/Coding Visit Charges Inpatient E&M: 93134 [facility] Hosp L3
--- NOTE | 2023-12-01 08:17 | PN.CC_ITS ---
Assessment & Plan Assessment/Plan (1) Septic shock: PLAN: Plan RECOMMENDATIONS: 1. Continue supplemental oxygen to maintain saturations at or above 90%. 2. Initiate BiPAP therapy, if needed, to maintain respiratory status. 3. Obtain chest x-ray. 4. Consider initiation of diuretic therapy today. 5. Continue antimicrobials. Recommend ID consultation to assist with antimicrobial management. 6. Continue bronchodilator therapy. 7. Wean stress dose steroids. IMPRESSIONS: 1. Acute on chronic hypoxemic respiratory failure The patient appears to be in a volume overloaded state at the present time. She has a known history of chronic hypoxemic respiratory failure along with a history of interstitial lung disease. Will obtain follow-up chest imaging this morning. In the interim, the patient will be started on scheduled diuretic therapy. If needed, noninvasive positive pressure ventilatory support will be initiated. Otherwise, continue supplemental oxygen to maintain saturations at or above 90%. 2. Septic shock secondary to ESBL E. coli UTI Clinically improving. The patient has been weaned from vasopressor support. As such, her stress dose steroids will be weaned as tolerated. Recommend continuing and microbials as ordered. I would also recommend that infectious diseases be consulted to assist with medical management of her antimicrobials. 3. History of interstitial lung disease/coronary artery disease/bradycardia/psoriatic arthritis Complicates care, management, recovery and prognosis. Continue home medications as indicated. Cardiology is following to assist with medical management. This note was generated with [email or web address] dictation software. It may contain incorrect words, spelling, and punctuation that were not noted in checking the note before signing. Subjective Subjective The patient was seen and examined at the bedside this morning. Events from the last 24 hours have been reviewed. The patient is currently afebrile, hemodynamically stable and maintaining appropriate oxygen saturations on 6 L/min via nasal cannula. The patient is documented to be overall net +5.8 L for the hospitalization. White count remains elevated at 18,000. The patient does re port the presence of shortness of breath this morning. Objective Data Objective Data The patient's most recent lab work, culture data and imaging studies have all been personally reviewed. Urine culture dated November 27 was positive for ESBL E. coli. Blood cultures have not demonstrated any growth to date. Vital Signs: Vital Signs Temp Pulse Resp BP Pulse Ox O2 Del Method O2 Flow Rate 98.3 F 57 L 28 H 171/65 H 94 Nasal Cannula 6 12/01/23 06:00 12/01/23 07:00 12/01/23 07:00 12/01/23 07:00 12/01/23 07:00 12/01/23 07:00 12/01/23 07:00 Oxygen Flow Rate (L/min) 6 Oxygen Delivery Method Nasal Cannula Weight: 222 lb 10.67 oz Body Mass Index (BMI) 38.2 Intake & Output: Intake and Output for Last 24 Hours 11/29/23 11/30/23 12/01/23 23:59 23:59 23:59 Intake Total 4363.29 / 4372.69 4591.37 / 5041.37 760.17 / 760.17 Output Total 850 / 850 1600 / 2400 1400 / 1400 Balance 3513.29 / 3522.69 2991.37 / 2641.37 -639.83 / -639.83 Lab / Micro Data Attestation: I reviewed the patient's lab results. 12/01/23 04:10 12/01/23 04:10 Labs: Laboratory Results - last 24 hr 11/30/23 10:50: Lactic Acid 3.7 H*, Troponin I High Sens 33, TSH 0.13 L, Free T4 1.06 11/30/23 15:30: Lactic Acid 2.9 H* 12/01/23 04:10: WBC 18.7 H, RBC 3.09 L, Hgb 9.5 L, Hct 31.2 L, MCV 101.0 H, MCH 30.7, MCHC 30.4 L, RDW Std Deviation 56.3 H, RDW Coeff of Sonya 15.1 H, Plt Count 206, MPV 11.6, Immature Gran % (Auto) 1.100 H, Neut % (Auto) 90.5 H, Lymph % (Auto) 4.3 L, [place] % (Auto) 4.0, Eos % (Auto) 0.0, Baso % (Auto) 0.1, Absolute Neuts (auto) 16.9 H, Absolute Lymphs (auto) 0.81 L, Nucleated RBC % 0, Sodium 144, Potassium 4.0, Chloride 116 H, Carbon Dioxide 24.0, Anion Gap 4 L, BUN 22 H , Creatinine 0.71, Estim Creat Clear Calc 73.47, Est GFR (MDRD) Af Amer 104, Est GFR (MDRD) Non-Af 86, BUN/Creatinine Ratio 30.9 H, Glucose 232 H, Calcium 8.4 L Micro: Microbiology 11/29/23 12:19 Mucosa - Nasopharyngeal SARS-CoV-2, Influenza & RSV (PCR) - Final Radiography Diagnostic Testing: Radiology Impression Abdomen/Pelvis CT 11/30/23 10:22 IMPRESSION: Fatty liver Gallbladder wall thickening and enhancement with pericholecystic fluid. No biliary dilatation or gallstones noted. Findings suggest acalculous cholecystitis. Please correlate with lab results and physical findings Simple left renal cyst, no specific follow-up needed Scattered colonic diverticula, no CT evidence of acute diverticulitis Uterus is present, the endometrium cannot be accurately evaluated with CT. There is a 2.8 cm right adnexal cyst, dedicated pelvic ultrasound recommended for more thorough evaluation of the pelvis Electronically Signed: Nirmal Victor MD at 13:15 EST Reading Location ID and State: [address] [place] [address] , Service support , Physical Exam Const alert and no apparent distress General Appearance: cooperative HEENT normocephalic, head/scalp atraumatic and moist oral mucous membranes Eyes PERRL and EOMs intact bilaterally Neck supple General: trachea midline Chest inspection of chest normal Resp Effort and Inspection: tachypneic Auscultation: wheezes; Negative for rales or rhonchi Cardio S1 normal heart sound and S2 normal heart sound Rate: bradycardia GI normal to inspection, nondistended, normoactive bowel sounds Extremity no clubbing, cyanosis or edema Skin no rashes or lesions noted Neuro oriented x3, CN's II-XII intact bilaterally and no focal motor deficits Psych Mood & Affect: anxious Charges/Coding Visit Charges Inpatient E&M: 29376 Subs Hosp L3
[2023-12-01] MEDS: HYDROcodone Bitartrate/Apap 5/325 Tablet PO ×2 (08:55→20:31)
[2023-12-01] MEDS: Polyethylene Glycol 3350 17 GM PACKET PO (08:55)
[2023-12-01] MEDS: Heparin Injection (Vial) 5,000 UNIT/ML VIAL 5000 UNIT SC ×2 (08:56→20:30)
[2023-12-01] MEDS: Aspirin 81 MG TAB.CHEW PO (08:56)
[2023-12-01] MEDS: Senna/Docusate Sodium 1 Tablet 2 TABLET PO ×2 (08:56→20:29)
[2023-12-01] MEDS: Clopidogrel Bisulfate 75 MG Tablet PO (08:57)
[2023-12-01] MEDS: Hydrocortisone Sod Succinate 100 MG/2 ML Vial 50 MG IV ×2 (08:57→20:30)
[2023-12-01] MEDS: Losartan Potassium 50 MG Tablet PO (09:31)
--- NOTE | 2023-12-01 09:32 | RAD_ITS ---
INDICATION: Hypoxemia EXAMINATION/TECHNIQUE: X-RAY - XR Chest 1 View COMPARISON: Prior study dated: 11/29/2023 FINDINGS: LINES/DEVICES: Right-sided PICC line with its tip in the cavoatrial junction region. LUNGS: Diffuse bilateral interstitial changes. Superimposed patchy infiltrates/edema. No definite pleural effusions. MEDIASTINUM AND CARDIOVASCULAR STRUCTURES: Stable cardiomediastinal silhouette. BONES AND SOFT TISSUES: Unchanged. RAD/Chest 1 View (Portable) IMPRESSION: Bilateral infiltrates/edema superimposed on chronic changes. Electronically Signed: Jose Russell MD at 10:14 EST ,
--- NOTE | 2023-12-01 09:38 | CASEMGMT ---
LAUREN COHEN Assessment Face to Face with patient for initial transition planning/care coordination assessment. LAUREN COHEN introduced self and role at [facility], pt voices understanding. Pt is A&Ox4 and is resting comfortably in bed and is calm. Care providers, pharmacy, and demographics verified. Admitting dx: Septic Shock, UTI LACE Strata: 4 PCP: Pedro Williamson Specialists: Camacho Williamson (Pulmonary), [facility] Preferred Pharmacy: [facility] Insurance: [employer] [facility] Prescription Benefit: Yes LNOK: Drake Gudino (son), Vinny Roberto (son), Miguel Angel Gudino (son) Living Arrangements: Pt lives with her son Vinny in a single story home with no BM and 1 step to enter with a HR. ADLs/IADLs: Pt requires assistance with IADLs and states that her son Vinny is able to help her with these. Transportation: Pt states that her son Miguel Angel has been driving her recently. DME: Pt states that she wears 3-4 liters of oxygen continuously and that she gets her oxygen supplies through [facility]. TC to [facility] at this time and [facility] states that the pt current order is 4L continuous. Pt denies wearing PAP at night. Pt states that she has portable tanks and a concentrator at home. Pt educated that if she gets DC to home she would be requested to have the portable tank delivered to the hospital prior to DC. Pt states understanding. Pt has a Pulse Ox. Electrical WC. Cane, walker, rollator, shower bench, and raised toilet seat. HHC/SNF: Pt states that she was at the [facility] recently and had a good experience there. Pt states history at [facility] and did not have a good experience there. Pt states [facility] history through [facility]. Pt?s goal: Return to PLOF. Plan: TBD, most likely SNF. PT is recommending skilled PT so the pt can return to PLOF. Pt states that there will not be someone at the home 21/04 to help her since her son works. Pt states that she is agreeable with going to a SNF at this time for further rehab. PARDEEP Lujan notified. Oralia Astudillo RN, CM
[2023-12-01] MEDS: Furosemide 40 MG/4 ML Vial IV ×2 (09:41→17:19)
[2023-12-01 10:01] LABS: BNP,B-Type NATRIURETIC PEPTIDE 1123.5 pg/mL (0-100)
[2023-12-01 10:11] LABS: Vancomycin, Trough Level 24.4 ug/mL (5.0-15.0)
--- NOTE | 2023-12-01 10:13 | PCM.PN.CARD ---
Subjective Subjective Patient reports that she is her bili her breathing is much more labored this morning. She has received his next significant amount of volume for her sepsis. Her heart rate has been in upper 40s to low 50s. Blood pressure has been adequate with this heart rate. However given the fact that she is hypoxic and struggling with breathing her heart rate is not reached above 60. The patient denies any syncope or near syncope she denies any lightheadedness. She just reports shortness of breath that is progressively worsened this morning. She was just given IV Lasix. She has a history of normal left ventricular and right ventricular function with a left ventricular ejection fraction of 55% in 2022 on a catheterization. At catheterization revealed severe disease in the right coronary artery which was stented in 2022. She denies any anginal type symptoms. Her LAD and circumflex had mild disease at that time. I did discuss the situation with Dr. Williamson the [facility] they are aggressively treating her hypoxia. Her beta-carmen has been appropriately held since admission. Objective Data Vital Signs: Vital Signs Temp Pulse Resp BP Pulse Ox O2 Del Method O2 Flow Rate 98.1 F 47 L 35 H 158/68 H 100 High Flow 10 12/01/23 08:00 12/01/23 10:11 12/01/23 10:11 12/01/23 09:00 12/01/23 10:11 12/01/23 09:00 12/01/23 09:00 FiO2 70 12/01/23 10:11 Oxygen Flow Rate (L/min) 10 Oxygen Delivery Method High Flow Weight: 222 lb 10.67 oz Body Mass Index (BMI) 38.2 Intake & Output: Intake and Output for Last 24 Hours 11/29/23 11/30/23 12/01/23 23:59 23:59 23:59 Intake Total 4363.29 / 4372.69 4591.37 / 5041.37 1678.50 / 1678.50 Output Total 850 / 850 1600 / 2400 1400 / 1400 Balance 3513.29 / 3522.69 2991.37 / 2641.37 278.50 / 278.50 Lab / Micro Data Attestation: I reviewed the patient's lab results. 12/01/23 04:10 12/01/23 04:10 Labs: Laboratory Results - last 24 hr 11/30/23 10:50: Lactic Acid 3.7 H*, Troponin I High Sens 33, TSH 0.13 L, Free T4 1.06 11/30/23 15:30: Lactic Acid 2.9 H* 12/01/23 04:10: WBC 18.7 H, RBC 3.09 L, Hgb 9.5 L, Hct 31.2 L, MCV 101.0 H, MCH 30.7, MCHC 30.4 L, RDW Std Deviation 56.3 H, RDW Coeff of Sonya 15.1 H, Plt Count 206, MPV 11.6, Immature Gran % (Auto) 1.100 H, Neut % (Auto) 90.5 H, Lymph % (Auto) 4.3 L, [place] % (Auto) 4.0, Eos % (Auto) 0.0, Baso % (Auto) 0.1, Absolute Neuts (auto) 16.9 H, Absolute Lymphs (auto) 0.81 L, Nucleated RBC % 0, Sodium 144, Potassium 4.0, Chloride 116 H, Carbon Dioxide 24.0, Anion Gap 4 L, BUN 22 H, Creatinine 0.71, Estim Creat Clear Calc 73.47, Est GFR (MDRD) Af Amer 104, Est GFR (MDRD) Non-Af 86, BUN/Creatinine Ratio 30.9 H, Glucose 232 H, Calcium 8.4 L, B-Natriuretic Peptide 1123.5 H 12/01/23 09:35: Vancomycin Trough 24.4 H Rhythm Strip Rhythm Strip: Sinus Rhythm Rate: 48 Cardiology Labs/Tests 11/30/23 10:50: Lactic Acid 3.7 H* 11/30/23 15:30: Lactic Acid 2.9 H* 12/01/23 04:10: WBC 18.7 H, RBC 3.09 L, Hgb 9.5 L, Hct 31.2 L, MCV 101.0 H, MCH 30.7, MCHC 30.4 L, Plt Count 206, MPV 11.6, Immature Gran % (Auto) 1.100 H, Neut % (Auto) 90.5 H, Lymph % (Auto) 4.3 L, [place] % (Auto) 4.0, Eos % (Auto) 0.0, Baso % (Auto) 0.1, Absolute Neuts (auto) 16.9 H, Nucleated RBC % 0, Sodium 144, Potassium 4.0, Chloride 116 H, Carbon Dioxide 24.0, Anion Gap 4 L, BUN 22 H, Creatinine 0.71, Est GFR (MDRD) Af Amer 104, Est GFR (MDRD) Non-Af 86, BUN/Creatinine Ratio 30.9 H, Glucose 232 H, Calcium 8.4 L, B-Natriuretic Peptide 1123.5 H Rhythm: EKG: ECHO: Stress Test: Cardiac Cath: PCI: CT Surgery: Holter monitor: EPS: PPM: CXR: Chest CT Scan: Radiography Diagnostic Testing: Radiology Impression Abdomen/Pelvis CT 11/30/23 10:22 IMPRESSION: Fatty liver Gallbladder wall thickening and enhancement with pericholecystic fluid. No biliary dilatation or gallstones noted. Findings suggest acalculous cholecystitis. Please correlate with lab results and physical findings Simple left renal cyst, no specific follow-up needed Scattered colonic diverticula, no CT evidence of acute diverticulitis Uterus is present, the endometrium cannot be accurately evaluated with CT. There is a 2.8 cm right adnexal cyst, dedicated pelvic ultrasound recommended for more thorough evaluation of the pelvis Electronically Signed: Nirmal Victor MD at 13:15 EST Reading Location ID and State: [facility] , Service support , Physical Exam Const alert and oriented x3 HEENT normocephalic Eyes EOMs intact bilaterally Neck no JVD and no carotid bruits Chest inspection of chest normal Resp Effort and Inspection: uses accessory muscles Auscultation: rhonchi throughout and wheezes inspiratory wheezes Cardio regular rate, regular rhythm, S1 normal heart sound, S2 normal heart sound, no murmurs, no rub and no gallops Cardio Narrative: Distant heart tones obscured by pulmonary rhonchi and wheezing. GI soft to palpation Extremity normal to inspection Skin no rashes or lesions noted Psych mental status grossly normal Assessment & Plan Assessment/Plan (1) Bradycardia: PLAN: Patient's heart rate is inappropriately low for her overall metabolic situation. I would recommend the patient's beta-carmen be discontinued at this time. We will continue to follow the patient and monitor her progress. She should not need a beta-carmen for her LV function as her ejection fraction is 55% and if she does have heart failure with preserved ejection fraction alternative medical therapy would be indicated. (2) Septic shock: PLAN: The septic shock is being treated by the primary service. (3) Chronic hypoxemic respiratory failure: PLAN: The hypoxic respiratory failure is being treated by the [facility] and the pulmonary group. It appears this may be related to volume overload and diuresis is ongoing. PLAN: Plan 1. Would avoid any rate slowing medical therapy. 2. Would discontinue the beta-carmen indefinitely. 3. If further cardiovascular assistance is needed please call. Charges/Coding Visit Charges Inpatient E&M: 80538 Subs Hosp L2
--- NOTE | 2023-12-01 10:25 | PCM.RX.CS ---
Consult Antibiotic Management Pharmacy has been consulted to manage selected antibiotic: Vancomycin Type of Intervention Type of Consult: Follow-up Suspected Infection Suspected Infection: Sepsis Prior Doses of Antibiotics Prior Doses of Antibiotics Received/Current Regimen: Vancomycin 1500 mg IV given 11/29 @ 0934, and 11/29 @ 2139 Labs Labs: Sodium 144 mmol/L (136-145) 12/01/23 04:10 Potassium 4.0 mmol/L (3.5-5.1) 12/01/23 04:10 Chloride 116 mmol/L (98-107) H 12/01/23 04:10 Carbon Dioxide 24.0 mmol/L (21.0-32.0) 12/01/23 04:10 Anion Gap 4 (5-15) L 12/01/23 04:10 BUN 22 mg/dL (7-18) H 12/01/23 04:10 Creatinine 0.71 mg/dL (0.55-1.02) 12/01/23 04:10 Est GFR (MDRD) Af Amer 104 mL/min (>60) 12/01/23 04:10 Est GFR (MDRD) Non-Af 86 mL/min (>60) 12/01/23 04:10 BUN/Creatinine Ratio 30.9 RATIO (10-20) H 12/01/23 04:10 Glucose 232 mg/dL (74-106) H 12/01/23 04:10 Vancomycin Trough 24.4 ug/mL (5.0-15.0) H 12/01/23 09:35 Microbiology Microbiology: Microbiology 11/29/23 12:19 Mucosa - Nasopharyngeal SARS-CoV-2, Influenza & RSV (PCR) - Final Dosing Weight Weight used for dosin kg Estimated Creatinine Clearance Estimated Creatinine Clearance: ~74 Goal Trough Goal Trough: 15-20 mcg/mL Pharmacy Plan for Drug Dosing Pharmacy Plan for Drug Dosing: Vancomycin trough = 24.4, hold and reorder random in 12 hours Pharmacy Service will continue to monitor and adjust dosing as required. Follow-Up Labs Follow-Up Labs: Trough: Vancomycin Date/Time Labs Ordered Labs to be done on [date and time ordered]: @ 1798
[2023-12-01] MEDS: LORazepam 2 MG/ML Syringe 0.5 MG IV ×2 (12:39→17:19)
--- NOTE | 2023-12-01 16:21 | PCM.CONS.GEN ---
Assessment & Plan Assessment/Plan (1) Septic shock: PLAN: Ucx with ESBL ecoli and strep. Will stop vanc today, cont jeannie. Will follow, thank you (2) Urinary tract infection: (3) Chronic hypoxemic respiratory failure: HPI Consult Data Date of Consult: 12/01/23 HPI Narrative Reason for Consultation: uti HPI Narrative: ISIDRA WARREN, is a 73 F who presented 11/29/23 with one day n/d, fatigue, not feeling well. Recent admit with ESBL ecoli uti, treated with ertapenem on discharge. No abd pain, has soto in place. Admitted to icu on vanc/jeannie. Some cough and dyspnea, now on NIPPV. Is on home O2. Full ROS performed and neg except as noted above. [facility]LY [facility] Medical History Abrasion Ambulates with cane Arthritis Atherosclerotic heart disease of [place] coronary artery without angina pectoris Back pain Back problem C. difficile colitis Diastolic heart failure Elevated glucose Gastric reflux GERD (gastroesophageal reflux disease) Hearing difficulty High blood pressure High cholesterol History of diverticulitis History of hiatal hernia History of steroid therapy History of ulceration HTN (hypertension) IBS (irritable bowel syndrome) Low back pain Neuropathy Obesity Osteoarthritis Osteopenia Psoriatic arthritis Smoker Uses wheelchair Walker as ambulation aid Wears glasses Home Medications omega-3 fatty acids-fish oil 340 mg-1,000 mg capsule (Fish Oil) 1,000 mg PO DAILY supplment 11/10/15 [History Last Taken 10/11/23] tizanidine 4 mg tablet 4 mg PO QHS muscle relaxer 11/10/15 [History Last Taken 11/28/23] calcium carbonate 600 mg calcium (1,500 mg) tablet 2,000 mg PO DAILY bone health 11/17/15 [History Last Taken 10/11/23] cholecalciferol (vitamin D3) 25 mcg (1,000 unit) tablet (Vitamin D3) 1,000 unit PO BID supplement 11/17/15 [History Last Taken 10/11/23] folic acid 1 mg tablet 1 mg PO DAILY 04/05/22 [History Last Taken Unknown] melatonin 10 mg capsule 10 mg PO HS PRN Sleep 04/05/22 [History Last Taken 10/10/23] prednisone 5 mg tablet 1 tab PO DAILY 04/30/22 [History Last Taken Unknown] aspirin 81 mg chewable tablet 81 mg PO DAILY@0800 stent #0 tabs 06/13/23 [Rx Last Taken 10/11/23] miconazole nitrate 2 % topical powder (Desenex) 1 applic topical BID #0 grams 06/13/23 [Rx Last Taken 10/10/23] oxymetazoline 0.05 % nasal spray (Nasal [place] (oxymetazoline)) 2 spray NASAL X1 PRN NASAL CONGESTION #0 mL 06/13/23 [Rx Last Taken 10/10/23] polyethylene glycol 3350 17 gram oral powder packet 17 g PO DAILY #0 ea 06/13/23 [Rx Last Taken 10/10/23] Bedside commode #1 ea 07/16/23 [Rx Last Taken Unknown] hydrochlorothiazide 25 mg tablet 25 mg PO DAILY #1 TAB 07/28/23 [Rx Last Taken Unknown] atorvastatin 40 mg tablet 40 mg PO QHS #90 tabs 08/04/23 [Rx Last Taken Unknown] clopidogrel 75 mg tablet (Plavix) 75 mg PO DAILY #90 tabs 08/04/23 [Rx Last Taken Unknown] metoprolol tartrate 25 mg tablet 12.5 mg (1/2 x 25 mg) PO BID #90 tabs 08/04/23 [Rx Last Taken 11/28/23] fluticasone propionate 50 mcg/actuation nasal spray,suspension 2 spray intranasal DAILY #16 grams 09/08/23 [Rx Last Taken Unknown] nebulizers #1 ea 11/03/23 [Rx Last Taken Unknown] dextromethorphan-guaifenesin 30 mg-600 mg tablet extended [id number] hr (Mucinex DM) 2 tab PO BID PRN cough 11/10/23 [History Last Taken Unknown] hydrocodone 10 mg-acetaminophen 325 mg tablet 0.5 tab PO BID Pain 10 days #10 tabs 11/28/23 [Rx Last Taken Unknown] methenamine hippurate 1 gram tablet 1 g PO BID #30 tabs 11/28/23 [Rx Last Taken Unknown] nitrofurantoin monohydrate/macrocrystals 100 mg capsule 100 mg PO Q12 #6 CAPSULES 11/28/23 [Rx Last Taken Unknown] buprenorphine 15 mcg/hour weekly transdermal patch 1 patch transdermal Q7D 11/29/23 [History Last Taken Unknown] fluconazole 150 mg tablet 150 mg PO DAILY 11/29/23 [History Last Taken Unknown] ipratropium 0.5 mg-albuterol 3 mg (2.5 mg base)/3 mL nebulization soln 3 ml inhalation Q6H 11/29/23 [History Last Taken Unknown] lansoprazole 30 mg capsule,delayed release 30 mg PO DAILY 11/29/23 [History Last Taken Unknown] losartan 50 mg tablet 50 mg PO DAILY 11/29/23 [History Last Taken Unknown] potassium chloride 20 mEq oral packet 20 meq PO DAILY 11/29/23 [History Last Taken Unknown] Allergy/AdvReac Type Severity Reaction Status Date / Time duloxetine [From Cymbalta] Allergy Intermediate Swelling Verified 11/29/23 11:36 erythromycin base Allergy Nausea/Vom/ Verified 11/29/23 11:36 Diarrhea pregabalin [From Lyrica] Allergy Swelling Verified 11/29/23 11:36 Family History Mother Diabetes Arthritis Heart disease CVA (cerebral vascular accident) Hypertension History of blood transfusion Father Pancreatic cancer Alcoholism Peptic ulcer disease Son Seizures Suicide attempt Surgical History H/O laminectomy History of appendectomy History of appendectomy History of breast biopsy History of colonoscopy (05/01/02) History of foot surgery History of spinal surgery Stented coronary artery (06/03/23) Social History Smoking Status: Former smoker how long ago did patient quit smoking: about 2 months ago alcohol intake: never substance use type: does not use what type of physical activity do you participate in: none seatbelt use: always do you feel safe at home: Yes Physical Exam Const alert Constitutional Narrative: ill appearing General Appearance: cooperative HEENT normocephalic and head/scalp atraumatic Eyes PERRL and EOMs intact bilaterally Neck supple and No nodes Resp Auscultation: diminished lung sounds Cardio regular rate and regular rhythm GI soft to palpation, non-tender and non-distended Extremity General Extremity: edema Skin no rashes or lesions noted Neuro CN's II-XII intact bilaterally Lab / Micro Data Attestation: I reviewed the patient's lab results. 12/01/23 04:10 12/01/23 04:10 Labs: Laboratory Results - last 24 hr 11/30/23 15:30: Lactic Acid 2.9 H* 12/01/23 04:10: WBC 18.7 H, RBC 3.09 L, Hgb 9.5 L, Hct 31.2 L, MCV 101.0 H, MCH 30.7, MCHC 30.4 L, RDW Std Deviation 56.3 H, RDW Coeff of Sonya 15.1 H, Plt Count 206, MPV 11.6, Immature Gran % (Auto) 1.100 H, Neut % (Auto) 90.5 H, Lymph % (Auto) 4.3 L, [place] % (Auto) 4.0, Eos % (Auto) 0.0, Baso % (Auto) 0.1, Absolute Neuts (auto) 16.9 H, Absolute Lymphs (auto) 0.81 L, Nucleated RBC % 0, Sodium 144, Potassium 4.0, Chloride 116 H, Carbon Dioxide 24.0, Anion Gap 4 L, BUN 22 H, Creatinine 0.71, Estim Creat Clear Calc 73.47, Est GFR (MDRD) Af Amer 104, Est GFR (MDRD) Non-Af 86, BUN/Creatinine Ratio 30.9 H, Glucose 232 H, Calcium 8.4 L, B-Natriuretic Peptide 1123.5 H 12/01/23 09:35: Vancomycin Trough 24.4 H Micro: Microbiology 11/29/23 12:19 Urine, Clean Catch Urine Culture - Final Culture exhibits no growth. Rhythm Strip Rhythm Strip: Sinus Rhythm Rate: 48 Imaging Radiology Impression Abdomen/Pelvis CT 11/30/23 10:22 IMPRESSION: Fatty liver Gallbladder wall thickening and enhancement with pericholecystic fluid. No biliary dilatation or gallstones noted. Findings suggest acalculous cholecystitis. Please correlate with lab results and physical findings Simple left renal cyst, no specific follow-up needed Scattered colonic diverticula, no CT evidence of acute diverticulitis Uterus is present, the endometrium cannot be accurately evaluated with CT. There is a 2.8 cm right adnexal cyst, dedicated pelvic ultrasound recommended for more thorough evaluation of the pelvis Electronically Signed: Nirmal Victor MD at 13:15 EST , Echocardiogram 11/30/23 10:38 Interpretation Summary Mild concentric left ventricular hypertrophy. The left ventricular ejection fraction is 65 %. Stage 2 diastolic dysfunction. The left atrium is moderately enlarged. The right atrium is mildly enlarged. Mild (1+) mitral valve insufficiency. Mild to moderate (1-2+) tricuspid valve insufficiency. Right ventricular systolic pressure estimated to be 79 mmHg. Ordering Physician: Vitaliy Grider Referring Physician: Anders Williamson M.D. Performed By: Yary Calero SARAH BETH Chest X-Ray 12/01/23 09:32 IMPRESSION: Bilateral infiltrates/edema superimposed on chronic changes. Electronically Signed: Jose Russell MD at 10:14 EST ,
[2023-12-01] MEDS: tiZANidine HCl 2 MG Tablet 4 MG PO (20:29)
[2023-12-01] MEDS: Atorvastatin Calcium 40 MG Tablet PO (20:29)
--- NOTE | 2023-12-01 20:30 | NURSING ---
Gave pt HS meds with Tylenol d/t fever and wanting to limit how many times the BiPAP mask comes off as pt decompensates quickly per previous shift RN. AVAPs replaced and then discussed w/pt her wishes regarding intubation w/mechanical breathing support; explained that her work of breathing is so strenuous that her muscles may tire quickly and then demand respiratory support. Pt states, I'd rather not. I want that to be the last thing I need, but if I need it, I understand. Pt given emotional support.
[2023-12-01] MEDS: MELATONIN 10 MG TABLET PO (20:31)
[2023-12-01] MEDS: Acetaminophen 325 MG Tablet 650 MG PO (20:31)
[2023-12-02] VITALS (38 sets, daily range): BP systolic 94–164; BP diastolic 44–91; PULSE 20–118; RESP 12–44; TEMP 36.4–38.4; O2SAT 88–100; BMI 37.3
[2023-12-02] MEDS: Ipratropium/Albuterol Sulfate 3 ML AMPUL.NEB INHALATION ×4 (01:58→19:45)
[2023-12-02] MEDS: LORazepam 2 MG/ML Syringe 0.5 MG IV (02:07)
[2023-12-02] MEDS: Meropenem 1 GM in 0.9% Normal Saline (100mL MB+) 100 ML IV ×3 (05:55→21:00)
[2023-12-02] MEDS: 0.9% Saline Lock 10 ML Syringe IV ×2 (05:56→08:11)
[2023-12-02 06:01] LABS: Absolute Lymphocyte Count 1.75 X10^3/uL (0.83-4.51); Absolute Neutrophil Count 14.3 X10^3/uL (2.0-7.7); Basophil# 0.02 X10^3/uL; Basophil% 0.1 % (0-1); Eosinophil# 0.04 X10^3/uL; Eosinophils% 0.2 % (0-5); Hemoglobin 9.6 g/dL (12.0-15.0); Lymphocyte # 1.75 X10^3/ul (0.83-4.51); Lymphocyte % 10.3 % (19-41); Mean Corpuscular Hgb 30.7 pg (27.0-32.0); Mean Platelet Vol. 11.1 fl (6.2-12.0); Monocyte# 0.75 X10^3/uL; Monocyte% 4.4 % (0-10); NRBC Flagged by Analyzer 0 % (0-5); Neutrophil # 14.34 X10^3/uL (2.7-7.7); Neutrophil % 84.2 % (47-70); Platelet Count 229 K/mm3 (150-450); RBC Distribution Width CV 15.2 % (11.6-14.6); RBC Distribution Width SD 55.2 fl (35.1-43.9); Red Blood Count 3.13 M/mm3 (4.2-5.4)
[2023-12-02 06:47] LABS: Anion Gap 7 (5-15); BUN 26 mg/dL (7-18); BUN/Creat Ratio 45.2 RATIO (10-20); Chloride 112 mmol/L (98-107); Creatinine, Serum 0.58 mg/dL (0.55-1.02); EST Glomerular Filtration Rate 110 mL/min (>60); Est Glom Filt Rate - Afr Amer 133 mL/min (>60); Estimated Creatinine Clearance 72.51 ml/min; Glucose 107 mg/dL (74-106); Magnesium 1.5 mg/dL (1.6-2.6); Phosphorus 1.9 mg/dL (2.5-4.9); Sodium Level 151 mmol/L (136-145)
--- NOTE | 2023-12-02 06:50 | RAD_ITS ---
INDICATION: increased work of breathing EXAMINATION/TECHNIQUE: X-RAY - XR Chest 1 View COMPARISON: 12/01/2023. FINDINGS: LINES/DEVICES: Right upper extremity PICC line is stable. LUNGS: Stable diffuse interstitial and airspace opacities. Probable small bilateral pleural effusions. No evidence of a pneumothorax. MEDIASTINUM AND CARDIOVASCULAR STRUCTURES: Cardiac silhouette is normal in size and contour. Mediastinum is unremarkable. BONES AND SOFT TISSUES: No acute abnormality. RAD/Chest 1 View (Portable) IMPRESSION: Stable diffuse interstitial airspace opacities consistent with edema and/or pneumonia. Probable small bilateral pleural effusions. Electronically Signed: Rigoberto Morales DO at 7:27 EST ,
--- NOTE | 2023-12-02 06:59 | PCM.PN.INT ---
Assessment & Plan Assessment/Plan (1) Septic shock: PLAN: Plan RECOMMENDATIONS: 1. Initiate patient on assist-control mode mechanical ventilation. Maintain FiO2 and PEEP to maintain saturations at or above 90%. 2. Obtain follow-up ABG following intubation. 3. Recheck influenza, RSV and COVID PCR's. 4. Obtain and send sputum for culture. 5. Continue antimicrobials per ID recommendations. 6. Aggressive electrolyte repletion. 7. Gentle free water repletion given hypernatremia. 8. Continue bronchodilator therapy. 9. Discontinue stress dose steroids. 10. Initiate appropriate DVT and GI prophylaxis. IMPRESSIONS: 1. Acute on chronic hypoxemic respiratory failure The patient has a known history of severe restrictive ventilatory mechanics along with chronic hypoxemic respiratory failure with a baseline requirement of 2 L/min at rest and 4 L/min with exertion. The patient's pulmonary history is significant for any evolving interstitial lung process in the setting of known psoriatic arthritis on methotrexate and Humira. The patient was initially admitted with septic shock in the setting of ESBL E. coli UTI. She was volume resuscitated and developed hypervolemia. Her chest imaging demonstrated findings concerning for bilateral pulmonary edema superimposed upon a background of chronic interstitial changes. The patient was diuresed aggressively, but continued to decompensate from a respiratory perspective. Ultimately, she was intubated on the morning of December 01. Plan to continue current supportive measures. If no improvement in respiratory status over the next 24 hours, will consider restarting corticosteroids. 2. Septic shock secondary to ESBL E. coli UTI The patient has been weaned from vasopressor support. Stress dose steroids will be discontinued today. Antimicrobials will be continued per the discretion of infectious diseases. 3. History of interstitial lung disease/coronary artery disease/bradycardia/psoriatic arthritis Complicates care, management, recovery and prognosis. Continue home medications as indicated. Cardiology is following to assist with medical management. TIME: 47 minutes of critical care time, inclusive of procedures, was spent addressing the patient's acute on chronic hypoxemic respiratory failure, septic shock secondary to ESBL E. coli UTI, interstitial lung disease, review of all data and collaboration with care team. Subjective Subjective The patient was seen and examined at the bedside this morning. Events from the last 24 hours have been reviewed. The patient was febrile overnight with a Tmax of 102 ?F. Her respiratory status remains quite tenuous this morning. Although the patient was diuresed and remains on AVAPS therapy, she remains tachypneic and short of breath. The patient responded remarkably well to Lasix therapy yesterday. Her white count this morning is elevated at 17,000. Sodium is increased at 151 with a potassium of 3.0. Creatinine is normal. Phosphorus is low at 1.9. Magnesium is low at 1.5. Given the patient's tenuous respiratory status and concern that she will become fatigued with ongoing tachypnea, the recommendation this morning was to proceed with intubation. The patient was agreeable. Intubation Indication: Respiratory failure Consent was obtained from: Patient The patient was placed in the appropriate sniffing position. Preoxygenated sedation via BiPAP was provided for a minimum of 3 minutes. The patient had continuous cardiac as well as pulse oximetry monitoring during the procedure. Procedure sedation was provided by the administration of 4 mg of Versed and 20 mg of etomidate. Direct laryngoscopy was then performed using a number 3 MAC blade, which revealed a grade 2 view. A 7.5 mm endotracheal tube was visualized advancing between the cords to the level of 24 cm at the lip. The stylette was then removed and discarded. Tube placement was confirmed by fogging in the tube along with equal and bilateral breath sounds. Colorimetric change was visualized on the CO2 meter. The cuff was then inflated and the tube secured using a commercially available device. A good pulse oximetry waveform was seen on the monitor throughout the procedure. A portable chest x-ray has been ordered to confirm appropriate placement. The patient tolerated the procedure well. Objective Data Objective Data The patient's most recent lab work, culture data and imaging studies have all been personally reviewed. Urine culture dated November 27 was positive for ESBL E. coli. Blood cultures have not demonstrated any growth to date. Vital Signs: Vital Signs Temp Pulse Resp BP Pulse Ox O2 Del Method O2 Flow Rate 100.3 F H 54 L 42 H 157/63 H 93 Bi-pap 10 12/02/23 06:00 12/02/23 06:00 12/02/23 06:00 12/02/23 06:00 12/02/23 06:00 12/02/23 06:00 12/01/23 09:00 FiO2 55 12/02/23 06:00 Oxygen Flow Rate (L/min) 10 Oxygen Delivery Method Bi-pap Weight: 217 lb 6.012 oz Body Mass Index (BMI) 37.3 Intake & Output: Intake and Output for Last 24 Hours 11/30/23 12/01/23 12/02/23 23:59 23:59 23:59 Intake Total 4591.37 / 5041.37 2038.50 / 2038.50 120 / 120 Output Total 1600 / 2400 6350 / 6350 250 / 250 Balance 2991.37 / 2641.37 -4311.50 / -4311.50 -130 / -130 Lab / Micro Data Attestation: I reviewed the patient's lab results. 12/02/23 05:50 12/02/23 05:50 Labs: Laboratory Results - last 24 hr 12/01/23 04:10: B-Natriuretic Peptide 1123.5 H 12/01/23 09:35: Vancomycin Trough 24.4 H 12/02/23 05:50: WBC 17.0 H, RBC 3.13 L, Hgb 9.6 L, Hct 31.0 L, MCV 99.0, MCH 30.7, MCHC 31.0 L, RDW Std Deviation 55.2 H, RDW Coeff of Sonya 15.2 H, Plt Count 229, MPV 11.1, Immature Gran % (Auto) 0.800, Neut % (Auto) 84.2 H, Lymph % (Auto) 10.3 L, [place] % (Auto) 4.4, Eos % (Auto) 0.2, Baso % (Auto) 0.1, Absolute Neuts (auto) 14.3 H, Absolute Lymphs (auto) 1.75, Nucleated RBC % 0, Sodium 151 H, Potassium 3.0 L, Chloride 112 H, Carbon Dioxide 32.0, Anion Gap 7, BUN 26 H, Creatinine 0.58, Estim Creat Clear Calc 72.51, Est GFR (MDRD) Af Amer 133, Est GFR (MDRD) Non-Af 110, BUN/Creatinine Ratio 45.2 H, Glucose 107 H, Calcium 9.0, Phosphorus 1.9 L, Magnesium 1.5 L Micro: Microbiology 11/29/23 12:19 Urine, Clean Catch Urine Culture - Final Culture exhibits no growth. 11/29/23 12:19 Mucosa - Nasopharyngeal SARS-CoV-2, Influenza & RSV (PCR) - Final Radiography Diagnostic Testing: Radiology Impression Echocardiogram 11/30/23 10:38 Interpretation Summary Mild concentric left ventricular hypertrophy. The left ventricular ejection fraction is 65 %. Stage 2 diastolic dysfunction. The left atrium is moderately enlarged. The right atrium is mildly enlarged. Mild (1+) mitral valve insufficiency. Mild to moderate (1-2+) tricuspid valve insufficiency. Right ventricular systolic pressure estimated to be 79 mmHg. Ordering Physician: Vitaliy Grider Referring Physician: Anders Williamson M.D. Performed By: Yary Calero RDCS Chest X-Ray 12/01/23 09:32 IMPRESSION: Bilateral infiltrates/edema superimposed on chronic changes. Electronically Signed: Jose Russell MD at 10:14 EST , Rhythm Strip Rhythm Strip: Sinus Rhythm Rate: 48 Physical Exam Const alert Constitutional Narrative: The patient appears quite fatigued on PAP therapy. General Appearance: cooperative and ill appearing HEENT normocephalic and head/scalp atraumatic Eyes PERRL and EOMs intact bilaterally Neck supple General: trachea midline Chest inspection of chest normal Resp Effort and Inspection: tachypneic, labored and actively coughing Auscultation: rales; Negative for rhonchi or wheezes Cardio regular rate, regular rhythm, S1 normal heart sound and S2 normal heart sound GI normal to inspection, nondistended, normoactive bowel sounds Extremity no clubbing, cyanosis or edema Skin no rashes or lesions noted Neuro oriented x3, CN's II-XII intact bilaterally and no focal motor deficits Psych Mood & Affect: anxious Charges/Coding Procedures Hospitalists Procedures: 43723 Critical Care 1st Hr
--- NOTE | 2023-12-02 07:37 | PCM.PN.HOSP ---
Reason for Visit Reason for Visit: Diagnoses Sepsis, unspecified organism (11/29/23) Chronic respiratory failure with hypoxia (11/29/23) Urinary tract infection, site not specified (11/29/23) Bradycardia, unspecified (11/29/23) Severe sepsis with septic shock (11/29/23) Subjective Subjective Patient seen remains on noninvasive ventilation with BiPAP. Chest x-ray obtained demonstrated diffuse interstitial airspace opacity consistent with edema and/or pneumonia bilateral small pleural effusion. Patient had been started on Precedex the day prior for agitation however had to be discontinued given her bradycardia. Objective Data Objective Data Vital Signs: Vital Signs Temp Pulse Resp BP Pulse Ox O2 Del Method O2 Flow Rate 100.3 F H 95 44 H 163/73 H 92 Bi-pap 10 12/02/23 06:00 12/02/23 07:00 12/02/23 07:00 12/02/23 07:00 12/02/23 07:00 12/02/23 07:00 12/01/23 09:00 FiO2 55 12/02/23 07:00 Oxygen Flow Rate (L/min) 10 Oxygen Delivery Method Bi-pap Weight: 98.6 kg Body Mass Index (BMI) 37.3 Intake & Output: Intake and Output for Last 24 Hours 11/30/23 12/01/23 12/02/23 23:59 23:59 23:59 Intake Total 4591.37 / 5041.37 2038.50 / 2038.50 120 / 120 Output Total 1600 / 2400 6350 / 6350 250 / 250 Balance 2991.37 / 2641.37 -4311.50 / -4311.50 -130 / -130 Lab / Micro Data 12/02/23 05:50 12/02/23 05:50 Labs: Laboratory Results - last 24 hr 12/01/23 04:10: B-Natriuretic Peptide 1123.5 H 12/01/23 09:35: Vancomycin Trough 24.4 H 12/02/23 05:50: WBC 17.0 H, RBC 3.13 L, Hgb 9.6 L, Hct 31.0 L, MCV 99.0, MCH 30.7, MCHC 31.0 L, RDW Std Deviation 55.2 H, RDW Coeff of Sonya 15.2 H, Plt Count 229, MPV 11.1, Immature Gran % (Auto) 0.800, Neut % (Auto) 84.2 H, Lymph % (Auto) 10.3 L, [place] % (Auto) 4.4, Eos % (Auto) 0.2, Baso % (Auto) 0.1, Absolute Neuts (auto) 14.3 H, Absolute Lymphs (auto) 1.75, Nucleated RBC % 0, Sodium 151 H, Potassium 3.0 L, Chloride 112 H, Carbon Dioxide 32.0, Anion Gap 7, BUN 26 H, Creatinine 0.58, Estim Creat Clear Calc 72.51, Est GFR (MDRD) Af Amer 133, Est GFR (MDRD) Non-Af 110, BUN/Creatinine Ratio 45.2 H, Glucose 107 H, Calcium 9.0, Phosphorus 1.9 L, Magnesium 1.5 L Micro: Microbiology 11/29/23 12:19 Urine, Clean Catch Urine Culture - Final Culture exhibits no growth. 11/29/23 12:19 Mucosa - Nasopharyngeal SARS-CoV-2, Influenza & RSV (PCR) - Final Radiography Diagnostic Testing: Radiology Impression Echocardiogram 11/30/23 10:38 Interpretation Summary Mild concentric left ventricular hypertrophy. The left ventricular ejection fraction is 65 %. Stage 2 diastolic dysfunction. The left atrium is moderately enlarged. The right atrium is mildly enlarged. Mild (1+) mitral valve insufficiency. Mild to moderate (1-2+) tricuspid valve insufficiency. Right ventricular systolic pressure estimated to be 79 mmHg. Ordering Physician: Vitaliy Grider Referring Physician: Anders Williamson M.D. Performed By: Yary Calero RDCS Chest X-Ray 12/01/23 09:32 IMPRESSION: Bilateral infiltrates/edema superimposed on chronic changes. Electronically Signed: Jose Russell MD at 10:14 EST , Chest X-Ray 12/02/23 06:50 IMPRESSION: Stable diffuse interstitial airspace opacities consistent with edema and/or pneumonia. Probable small bilateral pleural effusions. Electronically Signed: Rigoberto Morales DO at 7:27 EST , Rhythm Strip Rhythm Strip: Sinus Rhythm Rate: 48 Physical Exam Narrative GENERAL: Dyspneic at rest on BiPAP HEENT: Atraumatic; normocephalic EYES; Anicteric, Normal Conjunctiva NECK; supple, normal thyroid, RESPIRATORY: Diminished to auscultation CARDIOVASCULAR: Regular S1 S2, GI: soft, normoactive bowel sounds, : No Renal angle tenderness; EXTREMITIES: edema, no clubbing, MUSCULOSKELETAL: no muscle wasting NEURO: Awake; no lateralizing signs. SKIN: No Rash PSYCH; Flat affect Assessment & Plan Assessment/Plan (1) Acute UTI: PLAN: Plan Patient is a 74-year-old lady who presented with nausea vomiting and generalized malaise. Patient was found to have acute cystitis with septic shock admitted to the intensive care unit for further management 1. Septic shock ? Secondary to acute cystitis patient has history of recent ESBL E. coli managed with aggressive IV fluid resuscitation, broad-spectrum antibiotic therapy with meropenem after cultures have been sent we will follow-up on result 2. Acute kidney injury ? Present on admission resolved with IV hydration 3. Hypokalemia -Corrected per protocol 4. Hypomagnesemia -Corrected for protocol 5. Bradycardia ? Junctional patient was on metoprolol held seen in consultation by cardiology ? Patient was placed on Precedex to be discontinued given relative bradycardia 6. Acute hypoxic respiratory failure -Chest x-ray obtained demonstrated diffuse interstitial airspace opacity consistent with edema and/or pneumonia bilateral small pleural effusion.. Case discussed with Dr. Williamson with critical care plan is for patient to be intubated if there is no rapid turnaround 7. Essential hypertension ? Antihypertensives held on admission due to relative hypotension 8. Dyslipidemia -Patient is on statin therapy, continued at home dose 9. Degenerative joint disease ? Pain meds as needed 10. Psoriatic arthritis ? Patient was previously on Humira which has been held for almost a month currently on prednisone this was changed to hydrocortisone 11. Coronary artery disease ? Patient is on guideline directed medical therapy did continue 12. DVT prophylaxis ? SC heparin Time spent in the patient's overall evaluation,decision-making process, review of diagnostic data, adjustment of management, discussion with other providers, nursing nursing and ancillary staff involved in patient's care documentation, 50 Minutes Charges/Coding Visit Charges Inpatient E&M: 72775 [facility] L3
[2023-12-02] MEDS: Midazolam 2 MG/2 ML Syringe 4 MG IV (07:55)
[2023-12-02] MEDS: Etomidate 20 MG/10 ML Vial IV (07:56)
[2023-12-02] MEDS: fentaNYL drip 100 ML 5 MCG CONT INF (08:00)
[2023-12-02] MEDS: Propofol 10MG/Ml 1,000 MG/100 ML Bottle 5.90000000000000036 MG CONT INF (08:00)
--- NOTE | 2023-12-02 08:09 | NURSING ---
0755-4mg versed given 0756-20mg etomidate given 0757- 7.5 ETT 23 at the lip. positive color change
--- NOTE | 2023-12-02 08:11 | RAD_ITS ---
INDICATION: et tube placement EXAMINATION/TECHNIQUE: X-RAY - XR Chest 1 View COMPARISON: December 02, 2023 at 6:55 AM FINDINGS: LINES/DEVICES: There is an endotracheal tube in place terminating 3.3 cm above the du. There is a right-sided PIC line in place terminating within the expected region of the superior vena cava. There is an enteric tube in place terminating caudal to the gastroesophageal junction and inferior margin of the image. LUNGS: There are stable bilateral patchy opacities, more pronounced on the right. No pneumothorax. MEDIASTINUM AND CARDIOVASCULAR STRUCTURES: Cardiac silhouette not enlarged. Central airways and mediastinal contour are unremarkable. BONES AND SOFT TISSUES: Unremarkable. RAD/Chest 1 View (Portable) IMPRESSION: Endotracheal tube terminating 3.3 cm above the du. Stable bilateral patchy opacities may reflect some combination of edema, pneumonia and/or atelectasis. Electronically Signed: Elena Charlton MD at 8:39 EST ,
[2023-12-02] MEDS: Potassium Phosphate 21 MM in 0.9% Normal Saline (250mL Bag) 250 ML 84 MM IV (08:16)
[2023-12-02] MEDS: Budesonide Respules 0.5 MG/2 ML AMPUL.NEB. INHALATION ×2 (08:25→19:46)
--- NOTE | 2023-12-02 08:42 | PN.CARD_ITS ---
Subjective Subjective The patient developed a fever last evening to 102. She also had progressive respiratory insufficiency and failure and is now intubated. Her heart rate has started to appropriately respond and is up in the 80 bpm range in sinus rhythm. The patient is currently resting comfortably on the ventilator. Objective Data Vital Signs: Vital Signs Temp Pulse Resp BP Pulse Ox O2 Del Method O2 Flow Rate 101.2 F H 77 29 H 164/91 H 100 Mechanical Ventilator 10 12/02/23 08:00 12/02/23 08:25 12/02/23 08:25 12/02/23 08:00 12/02/23 08:00 12/02/23 08:00 12/01/23 09:00 FiO2 100 12/02/23 08:00 Oxygen Flow Rate (L/min) 10 Oxygen Delivery Method Mechanical Ventilator Weight: 217 lb 6.012 oz Body Mass Index (BMI) 37.3 Intake & Output: Intake and Output for Last 24 Hours 11/30/23 12/01/23 12/02/23 23:59 23:59 23:59 Intake Total 4591.37 / 5041.37 2038.50 / 2038.50 126.21 / 126.21 Output Total 1600 / 2400 6350 / 6350 250 / 250 Balance 2991.37 / 2641.37 -4311.50 / -4311.50 -123.79 / -123.79 Lab / Micro Data Attestation: I reviewed the patient's lab results. 12/02/23 05:50 12/02/23 05:50 Labs: Laboratory Results - last 24 hr 12/01/23 04:10: B-Natriuretic Peptide 1123.5 H 12/01/23 09:35: Vancomycin Trough 24.4 H 12/02/23 05:50: WBC 17.0 H, RBC 3.13 L, Hgb 9.6 L, Hct 31.0 L, MCV 99.0, MCH 30.7, MCHC 31.0 L, RDW Std Deviation 55.2 H, RDW Coeff of Sonya 15.2 H, Plt Count 229, MPV 11.1, Immature Gran % (Auto) 0.800, Neut % (Auto) 84.2 H, Lymph % (Auto) 10.3 L, [place] % (Auto) 4.4, Eos % (Auto) 0.2, Baso % (Auto) 0.1, Absolute Neuts (auto) 14.3 H, Absolute Lymphs (auto) 1.75, Nucleated RBC % 0, Sodium 151 H, Potassium 3.0 L, Chloride 112 H, Carbon Dioxide 32.0, Anion Gap 7, BUN 26 H, Creatinine 0.58, Estim Creat Clear Calc 72.51, Est GFR (MDRD) Af Amer 133, Est GFR (MDRD) Non-Af 110, BUN/Creatinine Ratio 45.2 H, Glucose 107 H, Calcium 9.0, Phosphorus 1.9 L, Magnesium 1.5 L Micro: Microbiology 11/29/23 12:19 Urine, Clean Catch Urine Culture - Final Culture exhibits no growth. Rhythm Strip Rhythm Strip: Sinus Rhythm Rate: 70 Cardiology Labs/Tests 12/01/23 04:10: B-Natriuretic Peptide 1123.5 H 12/02/23 05:50: WBC 17.0 H, RBC 3.13 L, Hgb 9.6 L, Hct 31.0 L, MCV 99.0, MCH 30.7, MCHC 31.0 L, Plt Count 229, MPV 11.1, Immature Gran % (Auto) 0.800, Neut % (Auto) 84.2 H, Lymph % (Auto) 10.3 L, [place] % (Auto) 4.4, Eos % (Auto) 0.2, Baso % (Auto) 0.1, Absolute Neuts (auto) 14.3 H, Nucleated RBC % 0, Sodium 151 H, Potassium 3.0 L, Chloride 112 H, Carbon Dioxide 32.0, Anion Gap 7, BUN 26 H, Creatinine 0.58, Est GFR (MDRD) Af Amer 133, Est GFR (MDRD) Non-Af 110, BUN/Creatinine Ratio 45.2 H, Glucose 107 H, Calcium 9.0, Phosphorus 1.9 L, Magnesium 1.5 L Rhythm: EKG: ECHO: Stress Test: Cardiac Cath: PCI: CT Surgery: Holter monitor: EPS: PPM: CXR: Chest CT Scan: Radiography Diagnostic Testing: Radiology Impression Echocardiogram 11/30/23 10:38 Interpretation Summary Mild concentric left ventricular hypertrophy. The left ventricular ejection fraction is 65 %. Stage 2 diastolic dysfunction. The left atrium is moderately enlarged. The right atrium is mildly enlarged. Mild (1+) mitral valve insufficiency. Mild to moderate (1-2+) tricuspid valve insufficiency. Right ventricular systolic pressure estimated to be 79 mmHg. Ordering Physician: Vitaliy Grider Referring Physician: Anders Williamson M.D. Performed By: Yary Calero RDCS Chest X-Ray 12/01/23 09:32 IMPRESSION: Bilateral infiltrates/edema superimposed on chronic changes. Electronically Signed: Jose Russell MD at 10:14 EST , Chest X-Ray 12/02/23 06:50 IMPRESSION: Stable diffuse interstitial airspace opacities consistent with edema and/or pneumonia. Probable small bilateral pleural effusions. Electronically Signed: Rigoberto Morales DO at 7:27 EST , Chest X-Ray 12/02/23 08:11 IMPRESSION: Endotracheal tube terminating 3.3 cm above the du. Stable bilateral patchy opacities may reflect some combination of edema, pneumonia and/or atelectasis. Electronically Signed: Elena Charlton MD at 8:39 EST , Physical Exam Const Constitutional Narrative: The patient is intubated and sedated HEENT normocephalic Neck no JVD Chest inspection of chest normal Resp Resp Narrative: The patient is intubated and sedated. There are scattered rhonchi throughout the lung mi. Auscultation: rhonchi throughout Cardio regular rate, regular rhythm, S1 normal heart sound, S2 normal heart sound, no murmurs, no rub and no gallops GI soft to palpation Skin no rashes or lesions noted Neuro Neuro Narrative: Sedated. Psych Psych Narrative: Sedated. Assessment & Plan Assessment/Plan (1) Bradycardia: PLAN: The patient bradycardia appears to have resolved off of the beta-carmen therapy. She is now getting some chronotropic response to her metabolic situation. Would avoid any rate modulating medications at this time. (2) Atherosclerotic heart disease of [place] coronary artery without angina pectoris: QUALIFIERS: [place] vs. transplanted heart: [place] heart Qualified Code(s): I25.10 - Atherosclerotic heart disease of [place] coronary artery without angina pectoris PLAN: The patient has a history of a right coronary artery stenting procedure in the mid RCA June 03, 2023. She is only 6 months out from her stent and should be continued on Plavix and aspirin. PLAN: Plan 1. Make certain the patient is receiving Plavix and aspirin via the NG tube or aspirin at least rectally. Charges/Coding Visit Charges Inpatient E&M: 41419 Subs Hosp L2
[2023-12-02 08:47] LABS: Allen Test Positive; Base Excess 7 mmol/L (-2 to +2); Bicarbonate 30.9 mmol/L (22-26); Blood Gas Specimen Type ART; Comment AVAPS; Mode Not entered; O2 Delivery Device BiPAP; PO2 54 mmHG (75-100); RR 12; SITE L Brach; SO2 90 % (95-99); Total Carbon Dioxide 32 mmol/L; pCO2 41.7 mmHg (35-45); pH 7.48 (7.35-7.45)
[2023-12-02 08:53] LABS: Base Excess 8 mmol/L (-2 to +2); Bicarbonate 30.2 mmol/L (22-26); Blood Gas Specimen Type ART; Mode AC; O2 Delivery Device Adult Vent; PEEP 5; PO2 159 mmHG (75-100); RR 14; SITE L Brach; SO2 100 % (95-99); Total Carbon Dioxide 31 mmol/L; pCO2 32.1 mmHg (35-45); pH 7.58 (7.35-7.45)
[2023-12-02] MEDS: Aspirin 81 MG TAB.CHEW PO (09:17)
[2023-12-02] MEDS: Polyethylene Glycol 3350 17 GM PACKET PO (09:17)
[2023-12-02] MEDS: Chlorhexidine 15 ML PO ×2 (09:17→20:58)
[2023-12-02] MEDS: Senna/Docusate Sodium 1 Tablet 2 TABLET PO ×2 (09:17→21:01)
[2023-12-02] MEDS: Magnesium Sulfate 4gm/100mL 4 GM/100 ML IV.SOLN. IV (09:17)
[2023-12-02] MEDS: Clopidogrel Bisulfate 75 MG Tablet PO (09:17)
[2023-12-02 09:20] LABS: CPK Total, Creatine Kinase 25 U/L (26-192); Triglycerides 68 mg/dL
[2023-12-02] MEDS: Dextrose 5%-Water (1000mL Bag) 1,000 ML 75 ML IV ×2 (09:20→21:11)
[2023-12-02] MEDS: Heparin Injection (Vial) 5,000 UNIT/ML VIAL 5000 UNIT SC ×2 (09:20→21:01)
[2023-12-02] MEDS: Acetaminophen 650 MG/20 ML UDC GT (10:49)
[2023-12-02] MEDS: Propofol 10MG/Ml 1,000 MG/100 ML Bottle 23.6999999999999993 MG CONT INF (11:32)
[2023-12-02] MEDS: Pantoprazole Sodium 40 MG in 0.9% Normal Saline (100mL MB+) 100 ML 330 MG IV (11:32)
--- NOTE | 2023-12-02 11:58 | CHAPLAIN ---
Type of Pastoral Visit _x__ Initial Visit ___ Follow-up Visit ___ On-call Visit ___ General Patient Visit ___ Spiritual Assessment ___ Family Conference ___ Bereavement ___ Rapid Response ___ Code Blue ___ Other (describe below) Pastoral Care Referral From ___ Patient _x__ Family ___ Nurse ___ Physician ___ Insurance Producer ___ Heater Furnace ___ Other (describe below) Sacrament/Intervention _x__ Active listening ___ Anointing ___ Baptist ___ Bereavement ___ Communion ___ Saritha exploration ___ ___ Life review _x__ Prayer ___ Reconciliation ___ Sacrament of Sick _x__ Supportive presence ___ Wedding ___ Other (describe below) Pastoral Comments patient was intubated this morning and cannot respond to this border police; however two family members and a dear friend were in the room at time of visit; offer of support to family is given; family members are welcoming and express their feelings/thoughts; a prayer and future presence is welcomed for support of pt and family
[2023-12-02] MEDS: Potassium Chloride 10mEq/100mL 10 MEQ/100 ML IV.SOLN. 100 MEQ IV BOLUS ×4 (12:12→15:37)
--- NOTE | 2023-12-02 13:56 | PCM.PN.ID ---
Physical Exam Narrative Now on vent, no fever, family at bedside Const no apparent distress Resp Auscultation: rhonchi Cardio regular rate and regular rhythm GI soft to palpation, non-tender and non-distended Skin no rashes or lesions noted ID ID: Route of nutrition/ use of supplements: [] Nutritional Intake: [] IV Site: [] [place] Catheter: [] Assessment & Plan Assessment/Plan (1) Septic shock: PLAN: Ucx with ESBL ecoli and strep. Cont jeannie. On vent now. Will follow (2) Urinary tract infection: (3) Chronic hypoxemic respiratory failure:
[2023-12-02] MEDS: fentaNYL drip 100 ML 15 MCG CONT INF (14:34)
[2023-12-02] MEDS: Propofol 10MG/Ml 1,000 MG/100 ML Bottle 14.8000000000000007 MG CONT INF (16:39)
--- NOTE | 2023-12-02 17:13 | NURSING ---
Buprenorphine patch removed per Dr Williamson's order. Flushed down toilet with Luciana AGUILAR.
[2023-12-02] MEDS: Atorvastatin Calcium 40 MG Tablet PO (21:01)
[2023-12-02] MEDS: tiZANidine HCl 2 MG Tablet 4 MG PO (21:01)
[2023-12-02] MEDS: Propofol 10MG/Ml 1,000 MG/100 ML Bottle 20.6999999999999993 MG CONT INF (21:11)
--- NOTE | 2023-12-02 21:20 | EKG12_ITS ---
Test Reason : tachycardia Blood Pressure : / mmHG Vent. Rate : 102 BPM Atrial Rate : 102 BPM P-R Int : 150 ms QRS Dur : 088 ms QT Int : 354 ms P-R-T Axes : 019 022 020 degrees QTc Int : 461 ms Sinus tachycardia with Premature atrial complexes Otherwise normal ECG Confirmed by Steve Scanlon ([id number]), editor department FRANCO MARTIN ([id number]) on 12/03/2023 1:37:24 PM Referred By: Confirmed By:Steve Scanlon
[2023-12-02] MEDS: fentaNYL drip 100 ML 10 MCG CONT INF (23:55)
[2023-12-03] VITALS (54 sets, daily range): BP systolic 86–155; BP diastolic 40–72; PULSE 56–105; RESP 14–34; TEMP 36.9–38.2; O2SAT 91–100; BMI 38.0
[2023-12-03] MEDS: Ipratropium/Albuterol Sulfate 3 ML AMPUL.NEB INHALATION ×4 (00:58→19:08)
[2023-12-03] MEDS: Propofol 10MG/Ml 1,000 MG/100 ML Bottle 14.8000000000000007 MG CONT INF (01:21)
--- NOTE | 2023-12-03 02:23 | PCM.HOSP.N ---
Hospitalist Note MAPs decreasing since midnight, 50-55 range, will restart low dose levophed. She had been off pressor therapy for ~ 24 hours prior to this.
[2023-12-03] MEDS: Norepinephrine 8 MG in 0.9% Normal Saline (250mL Bag) 242 ML 9.40000000000000036 MG CONT INF (03:06)
[2023-12-03] MEDS: 0.9% Saline Lock 10 ML Syringe IV (03:06)
[2023-12-03 03:18] LABS: Absolute Lymphocyte Count 2.22 X10^3/uL (0.83-4.51); Basophil# 0.02 X10^3/uL; Basophil% 0.2 % (0-1); Eosinophil# 0.79 X10^3/uL; Eosinophils% 8.1 % (0-5); Hematocrit 28.6 % (37-47); Hemoglobin 8.8 g/dL (12.0-15.0); Lymphocyte # 2.22 X10^3/ul (0.83-4.51); Lymphocyte % 22.7 % (19-41); Mean Corp Hgb Conc 30.8 g/dL (32-36); Mean Corpuscular Hgb 30.6 pg (27.0-32.0); Mean Corpuscular Volume 99.3 fL (81-99); Mean Platelet Vol. 10.8 fl (6.2-12.0); Monocyte# 0.71 X10^3/uL; Monocyte% 7.2 % (0-10); NRBC Flagged by Analyzer 0 % (0-5); Neutrophil # 6.01 X10^3/uL (2.7-7.7); Neutrophil % 61.3 % (47-70); Platelet Count 193 K/mm3 (150-450); RBC Distribution Width CV 15.2 % (11.6-14.6); RBC Distribution Width SD 55.1 fl (35.1-43.9); Red Blood Count 2.88 M/mm3 (4.2-5.4); White Blood Count 9.8 K/mm3 (4.4-11.0)
[2023-12-03 03:38] LABS: Anion Gap 5 (5-15); BUN 22 mg/dL (7-18); Calcium,Total 8.2 mg/dL (8.5-10.1); Chloride 108 mmol/L (98-107); Creatinine, Serum 0.42 mg/dL (0.55-1.02); EST Glomerular Filtration Rate 160 mL/min (>60); Est Glom Filt Rate - Afr Amer 193 mL/min (>60); Estimated Creatinine Clearance 72.51 ml/min; Glucose 110 mg/dL (74-106); Potassium 3.1 mmol/L (3.5-5.1); Sodium Level 145 mmol/L (136-145)
[2023-12-03 04:02] LABS: Magnesium 1.9 mg/dL (1.6-2.6); Phosphorus 2.2 mg/dL (2.5-4.9)
[2023-12-03] MEDS: TITRATION PARAMETER CHANGE 1 EACH IV (05:15)
[2023-12-03] MEDS: Meropenem 1 GM in 0.9% Normal Saline (100mL MB+) 100 ML IV ×3 (05:15→20:12)
[2023-12-03] MEDS: Budesonide Respules 0.5 MG/2 ML AMPUL.NEB. INHALATION ×2 (06:54→19:08)
--- NOTE | 2023-12-03 06:59 | PN.HOSP_ITS ---
Reason for Visit Reason for Visit: Diagnoses Sepsis, unspecified organism (11/29/23) Atherosclerotic heart disease of [place] coronary artery without angina pectoris (11/29/23) Chronic respiratory failure with hypoxia (11/29/23) Urinary tract infection, site not specified (11/29/23) Bradycardia, unspecified (11/29/23) Severe sepsis with septic shock (11/29/23) Subjective Subjective Patient was intubated given her worsening respiratory status. Seen this a.m. remains sedated on the vent Objective Data Objective Data Vital Signs: Vital Signs Temp Pulse Resp BP Pulse Ox O2 Del Method O2 Flow Rate 98.9 F 65 25 H 119/52 L 96 Mechanical Ventilator 10 12/03/23 06:00 12/03/23 06:55 12/03/23 06:55 12/03/23 06:00 12/03/23 06:55 12/03/23 06:00 12/01/23 09:00 FiO2 60 12/03/23 06:00 Oxygen Flow Rate (L/min) 10 Oxygen Delivery Method Mechanical Ventilator Weight: 101.2 kg Body Mass Index (BMI) 38.0 Intake & Output: Intake and Output for Last 24 Hours 12/01/23 12/02/23 12/03/23 23:59 23:59 23:59 Intake Total 2038.50 / 2038.50 2732.53 / 2737.79 264.28 / 264.28 Output Total 6350 / 6350 1050 / 1150 250 / 250 Balance -4311.50 / -4311.50 1682.53 / 1587.79 14.28 / 14.28 Lab / Micro Data 12/03/23 03:10 12/03/23 03:10 Labs: Laboratory Results - last 24 hr 12/02/23 05:50: Total Creatine Kinase 25 L, Triglycerides 68 12/03/23 03:10: WBC 9.8, RBC 2.88 L, Hgb 8.8 L, Hct 28.6 L, MCV 99.3 H, MCH 30.6, MCHC 30.8 L, RDW Std Deviation 55.1 H, RDW Coeff of Sonya 15.2 H, Plt Count 193, MPV 10.8, Immature Gran % (Auto) 0.500, Neut % (Auto) 61.3, Lymph % (Auto) 22.7, [place] % (Auto) 7.2, Eos % (Auto) 8.1 H, Baso % (Auto) 0.2, Absolute Neuts (auto) 6.0, Absolute Lymphs (auto) 2.22, Nucleated RBC % 0, Sodium 145, Potassium 3.1 L, Chloride 108 H, Carbon Dioxide 32.0, Anion Gap 5, BUN 22 H, Creatinine 0.42 L, Estim Creat Clear Calc 72.51, Est GFR (MDRD) Af Amer 193, Est GFR (MDRD) Non-Af 160, BUN/Creatinine Ratio 53.0 H, Glucose 110 H, Calcium 8.2 L , Phosphorus 2.2 L, Magnesium 1.9 Micro: Microbiology 12/02/23 08:21 Sputum, Induced/Lukens Gram Stain - Final 12/02/23 08:21 Mucosa - Nose SARS-CoV-2, Influenza & RSV (PCR) - Final 11/29/23 12:19 Urine, Clean Catch Urine Culture - Final Culture exhibits no growth. 11/29/23 12:19 Mucosa - Nasopharyngeal SARS-CoV-2, Influenza & RSV (PCR) - Final ABG Data ABG results: ABG 12/02/23 12/02/23 07:31 08:49 Specimen Type ART ART Sample Site L Brach L Brach pH 7.48 H 7.58 H Bicarbonate Actual 30.9 H 30.2 H Total CO2 32 31 Base Excess 7 H 8 H O2 Saturation 90 L 100 H O2 % 55.0 100.0 ABG pCO2 41.7 32.1 L ABG pO2 54 L 159 H Manoj Test Positive N/A Respiration Rate 12 14 O2 Delivery Device BiPAP Adult Vent Vent Mode Not entered AC Tidal Volume 400.0 400.0 POC PEEP 5 Clinical Comments AVAPS Radiography Diagnostic Testing: Radiology Impression Chest X-Ray 12/02/23 06:50 IMPRESSION: Stable diffuse interstitial airspace opacities consistent with edema and/or pneumonia. Probable small bilateral pleural effusions. Electronically Signed: Rigoberto Morales DO at 7:27 EST , Chest X-Ray 12/02/23 08:11 IMPRESSION: Endotracheal tube terminating 3.3 cm above the du. Stable bilateral patchy opacities may reflect some combination of edema, pneumonia and/or atelectasis. Electronically Signed: Elena Charlton MD at 8:39 EST , Rhythm Strip Rhythm Strip: Sinus Rhythm Rate: 70 Physical Exam Narrative GENERAL: Sedated on the vent HEENT: Atraumatic; normocephalic EYES; Anicteric, Normal Conjunctiva NECK; supple, normal thyroid, RESPIRATORY: Diminished to auscultation CARDIOVASCULAR: Regular S1 S2, GI: soft, normoactive bowel sounds, : No Renal angle tenderness; EXTREMITIES: edema, no clubbing, MUSCULOSKELETAL: no muscle wasting NEURO: Sedated on the vent SKIN: No Rash Assessment & Plan Assessment/Plan (1) Acute UTI: PLAN: Plan Patient is a 74-year-old lady who presented with nausea vomiting and generalized malaise. Patient was found to have acute cystitis with septic shock admitted to the intensive care unit for further management 1. Septic shock ? Secondary to acute cystitis patient has history of recent ESBL E. coli managed with aggressive IV fluid resuscitation, broad-spectrum antibiotic therapy with meropenem after cultures have been sent we will follow-up on result ? 12/03/2023 patient seen in consultation by Dr. Peñaloza with ID recommended continuation of current IV therapy with meropenem 2. Acute hypoxic respiratory failure -Chest x-ray obtained demonstrated diffuse interstitial airspace opacity consistent with edema and/or pneumonia bilateral small pleural effusion.. Case discussed with Dr. Williamson with critical care plan is for patient to be intubated if there is no rapid turnaround ? 12/03/2023; patient was intubated the day prior, given the rapidly deteriorating respiratory status. Remains on the vent Vent management deferred to critical care 3. Acute kidney injury ? Present on admission resolved with IV hydration 4. Hypomagnesemia -Corrected for protocol 5. Bradycardia ? Junctional patient was on metoprolol held seen in consultation by cardiology ? Patient was placed on Precedex to be discontinued given relative bradycardia 6. Hypokalemia -Corrected per protocol 7. Essential hypertension ? Antihypertensives held on admission due to relative hypotension 8. Dyslipidemia -Patient is on statin therapy, continued at home dose 9. Degenerative joint disease ? Pain meds as needed 10. Psoriatic arthritis ? Patient was previously on Humira which has been held for almost a month currently on prednisone this was changed to hydrocortisone 11. Coronary artery disease ? Patient is on guideline directed medical therapy did continue 12. DVT prophylaxis ? SC heparin Time spent in the patient's overall evaluation,decision-making process, review of diagnostic data, adjustment of management, discussion with other providers, nursing nursing and ancillary staff involved in patient's care documentation, 50 Minutes Charges/Coding Visit Charges Inpatient E&M: 47302 Subs Hosp L3
--- NOTE | 2023-12-03 07:04 | PN.CC_ITS ---
Assessment & Plan Assessment/Plan (1) Septic shock: PLAN: Plan RECOMMENDATIONS: 1. Continue assist-control mode of mechanical ventilation. Wean FiO2 and PEEP to maintain saturations at or above 90%. 2. Continue antimicrobials per ID recommendations. 3. Aggressive electrolyte repletion. 4. Stop D5W. 5. Continue bronchodilator therapy. 6. Okay to start tube feeding today from my perspective. 7. Continue appropriate DVT and GI prophylaxis. IMPRESSIONS: 1. Acute on chronic hypoxemic respiratory failure The patient has a known history of severe restrictive ventilatory mechanics along with chronic hypoxemic respiratory failure with a baseline requirement of 2 L/min at rest and 4 L/min with exertion. The patient's pulmonary history is significant for any evolving interstitial lung process in the setting of known psoriatic arthritis on methotrexate and Humira. The patient was initially admitted with septic shock in the setting of ESBL E. coli UTI. She was volume resuscitated and developed hypervolemia. Her chest imaging demonstrated findings concerning for bilateral pulmonary edema superimposed upon a background of chronic interstitial changes. The patient was diuresed aggressively, but continued to decompensate from a respiratory perspective. Ultimately, she was intubated on the morning of December 01. Plan to continue current supportive measures including assist-control mode of mechanical ventilation. Antibiotics will be continued per ID recommendations. I am going to hold off on diuresing the patient any further given her tenuous hemodynamic status. The patient can be initiated on tube feeding today from my perspective. 2. Septic shock secondary to ESBL E. coli UTI Continue antimicrobials per ID recommendations. 3. History of interstitial lung disease/coronary artery disease/bradycardia/psoriatic arthritis Complicates care, management, recovery and prognosis. Continue home medications as indicated. Cardiology is following to assist with medical management. TIME: 33 minutes of critical care time, independent of procedures, was spent addressing the patient's acute on chronic hypoxemic respiratory failure, septic shock secondary to ESBL E. coli UTI, interstitial lung disease, review of all data and collaboration with care team. Subjective Subjective The patient was seen and examined at the bedside this morning. Events from the last 24 hours have been reviewed. The patient is currently afebrile, hemodynamically stable and maintaining appropriate oxygen saturations on assist- control mode of mechanical ventilation with an FiO2 requirement of 60% and PEEP of 5. The patient is currently documented to be overall net +4 L for the hospitalization. Her white blood cell count has normalized. Hemoglobin is stable at 8.8 g/dL. Platelet count is normal. Potassium is low at 3.1 with a normal creatinine. The patient's hypernatremia has resolved. Objective Data Objective Data The patient's most recent lab work, culture data and imaging studies have all been personally reviewed. Urine culture dated November 27 was positive for ESBL E. coli. Blood cultures have not demonstrated any growth to date. Sputum culture is pending. COVID, influenza and RSV PCR's were again negative on December 01. Vital Signs: Vital Signs Temp Pulse Resp BP Pulse Ox O2 Del Method O2 Flow Rate 99.0 F 66 21 H 127/52 H 95 Mechanical Ventilator 10 12/03/23 07:00 12/03/23 07:00 12/03/23 07:00 12/03/23 07:00 12/03/23 07:00 12/03/23 07:00 12/01/23 09:00 FiO2 60 12/03/23 07:00 Oxygen Flow Rate (L/min) 10 Oxygen Delivery Method Mechanical Ventilator Weight: 223 lb 1.725 oz Body Mass Index (BMI) 38.0 Intake & Output: Intake and Output for Last 24 Hours 12/01/23 12/02/23 12/03/23 23:59 23:59 23:59 Intake Total 2038.50 / 2038.50 2732.53 / 2737.79 284.18 / 284.18 Output Total 6350 / 6350 1050 / 1150 250 / 250 Balance -4311.50 / -4311.50 1682.53 / 1587.79 34.18 / 34.18 Lab / Micro Data Attestation: I reviewed the patient's lab results. 12/03/23 03:10 12/03/23 03:10 Labs: Laboratory Results - last 24 hr 12/02/23 05:50: Total Creatine Kinase 25 L, Triglycerides 68 12/03/23 03:10: WBC 9.8, RBC 2.88 L, Hgb 8.8 L, Hct 28.6 L, MCV 99.3 H, MCH 30 .6, MCHC 30.8 L, RDW Std Deviation 55.1 H, RDW Coeff of Sonya 15.2 H, Plt Count 193, MPV 10.8, Immature Gran % (Auto) 0.500, Neut % (Auto) 61.3, Lymph % (Auto) 22.7, [place] % (Auto) 7.2, Eos % (Auto) 8.1 H, Baso % (Auto) 0.2, Absolute Neuts (auto) 6.0, Absolute Lymphs (auto) 2.22, Nucleated RBC % 0, Sodium 145, Potassium 3.1 L, Chloride 108 H, Carbon Dioxide 32.0, Anion Gap 5, BUN 22 H, Creatinine 0.42 L, Estim Creat Clear Calc 72.51, Est GFR (MDRD) Af Amer 193, Est GFR (MDRD) Non-Af 160, BUN/Creatinine Ratio 53.0 H, Glucose 110 H, Calcium 8.2 L , Phosphorus 2.2 L, Magnesium 1.9 Micro: Microbiology 12/02/23 08:21 Sputum, Induced/Lukens Gram Stain - Final 12/02/23 08:21 Mucosa - Nose SARS-CoV-2, Influenza & RSV (PCR) - Final 11/29/23 12:19 Urine, Clean Catch Urine Culture - Final Culture exhibits no growth. 11/29/23 12:19 Mucosa - Nasopharyngeal SARS-CoV-2, Influenza & RSV (PCR) - Final ABG Data ABG results: ABG 12/02/23 12/02/23 07:31 08:49 Specimen Type ART ART Sample Site L Brach L Brach pH 7.48 H 7.58 H Bicarbonate Actual 30.9 H 30.2 H Total CO2 32 31 Base Excess 7 H 8 H O2 Saturation 90 L 100 H O2 % 55.0 100.0 ABG pCO2 41.7 32.1 L ABG pO2 54 L 159 H Manoj Test Positive N/A Respiration Rate 12 14 O2 Delivery Device BiPAP Adult Vent Vent Mode Not entered AC Tidal Volume 400.0 400.0 POC PEEP 5 Clinical Comments AVAPS Radiography Diagnostic Testing: Radiology Impression Chest X-Ray 12/02/23 06:50 IMPRESSION: Stable diffuse interstitial airspace opacities consistent with edema and/or pneumonia. Probable small bilateral pleural effusions. Electronically Signed: Rigoberto Morales DO at 7:27 EST , Chest X-Ray 12/02/23 08:11 IMPRESSION: Endotracheal tube terminating 3.3 cm above the du. Stable bilateral patchy opacities may reflect some combination of edema, pneumonia and/or atelectasis. Electronically Signed: Elena Charlton MD at 8:39 EST , Rhythm Strip Rhythm Strip: Sinus Rhythm Rate: 70 Physical Exam Const Constitutional Narrative: Intubated, sedated and mechanically ventilated. No ventilator dyssynchrony. General Appearance: ill appearing HEENT normocephalic and head/scalp atraumatic Mouth: endotracheal tube in place and OG tube in place Eyes PERRL and EOMs intact bilaterally Neck supple General: trachea midline Chest inspection of chest normal Resp Auscultation: rales; Negative for rhonchi or wheezes Cardio regular rate, regular rhythm, S1 normal heart sound and S2 normal heart sound GI normal to inspection, nondistended, normoactive bowel sounds Extremity no clubbing, cyanosis or edema Skin no rashes or lesions noted Neuro Sensorium / Orientation: sedated on vent Psych Mood & Affect: anxious Charges/Coding Procedures Hospitalists Procedures: 82073 Critical Care 1st Hr
[2023-12-03] MEDS: CHLORHEXIDINE GLUC 2% CLOTH 1 EACH TOWELETTE TOPICAL (07:58)
[2023-12-03] MEDS: Aspirin 81 MG TAB.CHEW PO (07:58)
[2023-12-03] MEDS: Chlorhexidine 15 ML PO ×2 (07:58→20:13)
[2023-12-03] MEDS: Heparin Injection (Vial) 5,000 UNIT/ML VIAL 5000 UNIT SC ×2 (07:59→20:12)
[2023-12-03] MEDS: Clopidogrel Bisulfate 75 MG Tablet PO (07:59)
[2023-12-03] MEDS: Senna/Docusate Sodium 1 Tablet 2 TABLET PO ×2 (07:59→20:12)
[2023-12-03] MEDS: Polyethylene Glycol 3350 17 GM PACKET PO (07:59)
[2023-12-03] MEDS: Pantoprazole Sodium 40 MG in 0.9% Normal Saline (100mL MB+) 100 ML 330 MG IV (08:00)
[2023-12-03] MEDS: Potassium Chloride 10mEq/100mL 10 MEQ/100 ML IV.SOLN. 100 MEQ IV BOLUS ×4 (08:20→12:34)
[2023-12-03] MEDS: fentaNYL drip 100 ML 12.5 MCG CONT INF ×2 (09:56→18:20)
[2023-12-03] MEDS: 0.9% Normal Saline (250mL Bag) 250 ML 15 ML IV (10:26)
[2023-12-03] MEDS: Vital AF 1.2 Cal Liquid 1,000 ML 60 ML GT (10:51)
[2023-12-03] MEDS: Propofol 10MG/Ml 1,000 MG/100 ML Bottle 9.09999999999999964 MG CONT INF ×2 (11:10→18:56)
[2023-12-03] MEDS: Acetaminophen 650 MG/20 ML UDC GT (17:29)
[2023-12-03] MEDS: Atorvastatin Calcium 40 MG Tablet PO (20:12)
[2023-12-03] MEDS: tiZANidine HCl 2 MG Tablet 4 MG PO (20:12)
[2023-12-04] VITALS (43 sets, daily range): BP systolic 76–181; BP diastolic 37–84; PULSE 60–111; RESP 14–93; TEMP 36.9–38.1; O2SAT 92–100; BMI 38.2
[2023-12-04] MEDS: fentaNYL drip 100 ML 12.5 MCG CONT INF ×3 (03:18→17:43)
[2023-12-04 03:37] LABS: Absolute Lymphocyte Count 2.27 X10^3/uL (0.83-4.51); Absolute Neutrophil Count 3.5 X10^3/uL (2.0-7.7); Basophil# 0.05 X10^3/uL; Basophil% 0.6 % (0-1); Eosinophil# 1.63 X10^3/uL; Hematocrit 28.9 % (37-47); Lymphocyte # 2.27 X10^3/ul (0.83-4.51); Lymphocyte % 27.8 % (19-41); Mean Corp Hgb Conc 31.1 g/dL (32-36); Mean Corpuscular Hgb 31.1 pg (27.0-32.0); Mean Platelet Vol. 10.7 fl (6.2-12.0); Monocyte# 0.64 X10^3/uL; Monocyte% 7.8 % (0-10); NRBC Flagged by Analyzer 0 % (0-5); Neutrophil # 3.52 X10^3/uL (2.7-7.7); Neutrophil % 43.1 % (47-70); Platelet Count 234 K/mm3 (150-450); RBC Distribution Width CV 14.9 % (11.6-14.6); RBC Distribution Width SD 55.2 fl (35.1-43.9); Red Blood Count 2.89 M/mm3 (4.2-5.4); White Blood Count 8.2 K/mm3 (4.4-11.0)
[2023-12-04 04:05] LABS: Anion Gap 5 (5-15); BUN 17 mg/dL (7-18); BUN/Creat Ratio 42.5 RATIO (10-20); Calcium,Total 8.3 mg/dL (8.5-10.1); Chloride 108 mmol/L (98-107); EST Glomerular Filtration Rate 167 mL/min (>60); Est Glom Filt Rate - Afr Amer 202 mL/min (>60); Estimated Creatinine Clearance 73.55 ml/min; Glucose 121 mg/dL (74-106); Potassium 3.4 mmol/L (3.5-5.1); Sodium Level 145 mmol/L (136-145)
[2023-12-04] MEDS: Propofol 10MG/Ml 1,000 MG/100 ML Bottle 9.09999999999999964 MG CONT INF ×2 (05:00→23:00)
[2023-12-04] MEDS: 0.9% Saline Lock 10 ML Syringe IV (05:10)
[2023-12-04] MEDS: Meropenem 1 GM in 0.9% Normal Saline (100mL MB+) 100 ML IV ×3 (05:10→20:42)
--- NOTE | 2023-12-04 06:41 | PN.CC_ITS ---
Assessment & Plan Assessment/Plan (1) Septic shock: PLAN: Plan RECOMMENDATIONS: 1. Continue assist-control mode of mechanical ventilation. Wean FiO2 and PEEP to maintain saturations at or above 90%. 2. Continue antimicrobials per ID recommendations. 3. Attempt gentle diuresis. 4. Continue paired spontaneous awakening and breathing trials daily. 5. Continue bronchodilator therapy. 6. Continue tube feeding as tolerated. 7. Continue appropriate DVT and GI prophylaxis. IMPRESSIONS: 1. Acute on chronic hypoxemic respiratory failure The patient has a known history of severe restrictive ventilatory mechanics along with chronic hypoxemic respiratory failure with a baseline requirement of 2 L/min at rest and 4 L/min with exertion. The patient's pulmonary history is significant for any evolving interstitial lung process in the setting of known psoriatic arthritis on methotrexate and Humira. The patient was initially a dmitted with septic shock in the setting of ESBL E. coli UTI. She was volume resuscitated and developed hypervolemia. Her chest imaging demonstrated findings concerning for bilateral pulmonary edema superimposed upon a background of chronic interstitial changes. The patient was diuresed aggressively, but continued to decompensate from a respiratory perspective. Ultimately, she was intubated on the morning of December 01. Plan to continue current supportive measures including assist-control mode of mechanical ventilation. Antibiotics will be continued per ID recommendations. The patient will be continued on tube feeding as tolerated. Continue attempts at paired spontaneous awakening and b reathing trials daily. Will attempt gentle diuresis today, as tolerated by hemodynamics and renal function. 2. Septic shock secondary to ESBL E. coli UTI Continue antimicrobials per ID recommendations. 3. History of interstitial lung disease/coronary artery disease/bradycardia/psoriatic arthritis Complicates care, management, recovery and prognosis. Continue home medications as indicated. Cardiology is following to assist with medical management. TIME: 32 minutes of critical care time, independent of procedures, was spent addressing the patient's acute on chronic hypoxemic respiratory failure, septic shock secondary to ESBL E. coli UTI, interstitial lung disease, review of all data and collaboration with care team. Subjective Subjective The patient was seen and examined at the bedside this morning. Events from the last 24 hours have been reviewed. The patient is currently afebrile, hemodynamically stable and maintaining appropriate oxygen saturations on assist- control mode of mechanical ventilation with an FiO2 requirement of 40% and PEEP of 5. The patient remains on low-dose Levophed at 2 mcg/min. She failed her spontaneous breathing trial this morning and was noted by nursing staff to have a significant amount of secretions overnight. The patient is documented to be overall net +5.2 L for the hospitalization. The patient has been tolerant of tube feeding. Objective Data Objective Data The patient's most recent lab work, culture data and imaging studies have all been personally reviewed. Urine culture dated November 27 was positive for ESBL E. coli. Blood cultures have not demonstrated any growth to date. Sputum culture is pending. COVID, influenza and RSV PCR's were again negative on December 01. Vital Signs: Vital Signs Temp Pulse Resp BP Pulse Ox O2 Del Method O2 Flow Rate 98.9 F 67 15 118/50 L 96 Mechanical Ventilator 40 12/04/23 06:00 12/04/23 06:00 12/04/23 06:00 12/04/23 06:00 12/04/23 06:00 12/04/23 06:00 12/04/23 04:00 FiO2 40 12/04/23 06:00 Oxygen Flow Rate (L/min) 40 Oxygen Delivery Method Mechanical Ventilator Weight: 223 lb 1.725 oz Body Mass Index (BMI) 38.0 Intake & Output: Intake and Output for Last 24 Hours 12/02/23 12/03/23 12/04/23 23:59 23:59 23:59 Intake Total 2732.53 / 2737.79 2699.79 / 2776.99 628.77 / 628.77 Output Total 1050 / 1150 1600 / 1600 350 / 350 Balance 1682.53 / 1587.79 1099.79 / 1176.99 278.77 / 278.77 Lab / Micro Data Attestation: I reviewed the patient's lab results. 12/04/23 03:30 12/04/23 03:30 Labs: Laboratory Results - last 24 hr 12/04/23 03:30: WBC 8.2, RBC 2.89 L, Hgb 9.0 L, Hct 28.9 L, MCV 100.0 H, MCH 31.1, MCHC 31.1 L, RDW Std Deviation 55.2 H, RDW Coeff of Sonya 14.9 H, Plt Count 234, MPV 10.7, Immature Gran % (Auto) 0.700, Neut % (Auto) 43.1 L, Lymph % (Auto) 27.8, Taney % (Auto) 7.8, Eos % (Auto) 20.0 H, Baso % (Auto) 0.6, Absolute Neuts (auto) 3.5, Absolute Lymphs (auto) 2.27, Nucleated RBC % 0, Sodium 145, Potassium 3.4 L, Chloride 108 H, Carbon Dioxide 32.0, Anion Gap 5, BUN 17, Creatinine 0.40 L, Estim Creat Clear Calc 73.55, Est GFR (MDRD) Af Amer 202, Est GFR (MDRD) Non-Af 167, BUN/Creatinine Ratio 42.5 H, Glucose 121 H, Calcium 8.3 L Micro: Microbiology 12/02/23 08:21 Sputum, Induced/Lukens Gram Stain - Final 12/02/23 08:21 Mucosa - Nose SARS-CoV-2, Influenza & RSV (PCR) - Final 11/29/23 12:19 Urine, Clean Catch Urine Culture - Final Culture exhibits no growth. 11/29/23 12:19 Mucosa - Nasopharyngeal SARS-CoV-2, Influenza & RSV (PCR) - Final ABG Data ABG results: ABG 12/02/23 12/02/23 07:31 08:49 Specimen Type ART ART Sample Site L Brach L Brach pH 7.48 H 7.58 H Bicarbonate Actual 30.9 H 30.2 H Total CO2 32 31 Base Excess 7 H 8 H O2 Saturation 90 L 100 H O2 % 55.0 100.0 ABG pCO2 41.7 32.1 L ABG pO2 54 L 159 H Manoj Test Positive N/A Respiration Rate 12 14 O2 Delivery Device BiPAP Adult Vent Vent Mode Not entered AC Tidal Volume 400.0 400.0 POC PEEP 5 Clinical Comments [facility] Radiography Diagnostic Testing: Radiology Impression Chest X-Ray 12/02/23 06:50 IMPRESSION: Stable diffuse interstitial airspace opacities consistent with edema and/or pneumonia. Probable small bilateral pleural effusions. Electronically Signed: Rigoberto Morales DO at 7:27 EST , Chest X-Ray 12/02/23 08:11 IMPRESSION: Endotracheal tube terminating 3.3 cm above the du. Stable bilateral patchy opacities may reflect some combination of edema, pneumonia and/or atelectasis. Electronically Signed: Elena Charlton MD at 8:39 EST , Rhythm Strip Rhythm Strip: Sinus Rhythm Rate: 70 Physical Exam Const Constitutional Narrative: Intubated, sedated and mechanically ventilated. No ventilator dyssynchrony. General Appearance: ill appearing HEENT normocephalic and head/scalp atraumatic Mouth: endotracheal tube in place and OG tube in place Eyes PERRL and EOMs intact bilaterally Neck supple General: trachea midline Chest inspection of chest normal Resp Auscultation: rhonchi and diminished lung sounds; Negative for rales or wheezes Cardio regular rate, regular rhythm, S1 normal heart sound and S2 normal heart sound GI normal to inspection, nondistended, normoactive bowel sounds Extremity no clubbing, cyanosis or edema Skin no rashes or lesions noted Neuro Sensorium / Orientation: sedated on vent Charges/Coding Procedures Hospitalists Procedures: [id number] Critical Care 1st Hr
[2023-12-04] MEDS: Budesonide Respules 0.5 MG/2 ML AMPUL.NEB. INHALATION ×2 (06:51→18:35)
[2023-12-04] MEDS: Ipratropium/Albuterol Sulfate 3 ML AMPUL.NEB INHALATION ×3 (06:51→18:35)
[2023-12-04] MEDS: Chlorhexidine 15 ML PO ×2 (07:51→20:43)
[2023-12-04] MEDS: Aspirin 81 MG TAB.CHEW PO (07:51)
[2023-12-04] MEDS: Heparin Injection (Vial) 5,000 UNIT/ML VIAL 5000 UNIT SC ×2 (07:52→20:42)
[2023-12-04] MEDS: Polyethylene Glycol 3350 17 GM PACKET PO (07:54)
[2023-12-04] MEDS: CHLORHEXIDINE GLUC 2% CLOTH 1 EACH TOWELETTE TOPICAL (07:54)
[2023-12-04] MEDS: Clopidogrel Bisulfate 75 MG Tablet PO (07:54)
[2023-12-04] MEDS: Senna/Docusate Sodium 1 Tablet 2 TABLET PO ×2 (08:03→20:41)
[2023-12-04] MEDS: Pantoprazole Sodium 40 MG in 0.9% Normal Saline (100mL MB+) 100 ML 330 MG IV (08:19)
[2023-12-04] MEDS: Furosemide 40 MG/4 ML Vial IV (08:19)
--- NOTE | 2023-12-04 08:36 | PCM.PN.HOSP ---
Reason for Visit Reason for Visit: Diagnoses Sepsis, unspecified organism (11/29/23) Atherosclerotic heart disease of [place] coronary artery without angina pectoris (11/29/23) Chronic respiratory failure with hypoxia (11/29/23) Urinary tract infection, site not specified (11/29/23) Bradycardia, unspecified (11/29/23) Severe sepsis with septic shock (11/29/23) Subjective Subjective Patient seen remains on the vent, did fail her weaning trial this morning. She continues to have copious amount of secretions Objective Data Objective Data Vital Signs: Vital Signs Temp Pulse Resp BP Pulse Ox O2 Del Method O2 Flow Rate 98.9 F 87 14 134/57 H 94 Mechanical Ventilator 40 12/04/23 07:00 12/04/23 07:00 12/04/23 07:00 12/04/23 07:00 12/04/23 07:00 12/04/23 07:00 12/04/23 04:00 FiO2 40 12/04/23 07:00 Oxygen Flow Rate (L/min) 40 Oxygen Delivery Method Mechanical Ventilator Weight: 101.5 kg Body Mass Index (BMI) 38.2 Intake & Output: Intake and Output for Last 24 Hours 12/02/23 12/03/23 12/04/23 23:59 23:59 23:59 Intake Total 2732.53 / 2737.79 2699.79 / 2776.99 655.97 / 655.97 Output Total 1050 / 1150 1600 / 1600 350 / 350 Balance 1682.53 / 1587.79 1099.79 / 1176.99 305.97 / 305.97 Lab / Micro Data 12/04/23 03:30 12/04/23 03:30 Labs: Laboratory Results - last 24 hr 12/04/23 03:30: WBC 8.2, RBC 2.89 L, Hgb 9.0 L, Hct 28.9 L, MCV 100.0 H, MCH 31.1, MCHC 31.1 L, RDW Std Deviation 55.2 H, RDW Coeff of Sonya 14.9 H, Plt Count 234, MPV 10.7, Immature Gran % (Auto) 0.700, Neut % (Auto) 43.1 L, Lymph % (Auto) 27.8, Jackson % (Auto) 7.8, Eos % (Auto) 20.0 H, Baso % (Auto) 0.6, Absolute Neuts (auto) 3.5, Absolute Lymphs (auto) 2.27, Nucleated RBC % 0, Sodium 145, Potassium 3.4 L, Chloride 108 H, Carbon Dioxide 32.0, Anion Gap 5, BUN 17, Creatinine 0.40 L, Estim Creat Clear Calc 73.55, Est GFR (MDRD) Af Amer 202, Est GFR (MDRD) Non-Af 167, BUN/Creatinine Ratio 42.5 H, Glucose 121 H, Calcium 8.3 L Micro: Microbiology 12/02/23 08:21 Sputum, Induced/Lukens Gram Stain - Final 12/02/23 08:21 Mucosa - Nose SARS-CoV-2, Influenza & RSV (PCR) - Final 11/29/23 12:19 Urine, Clean Catch Urine Culture - Final Culture exhibits no growth. 11/29/23 12:19 Mucosa - Nasopharyngeal SARS-CoV-2, Influenza & RSV (PCR) - Final Rhythm Strip Rhythm Strip: Sinus Rhythm Rate: 70 Physical Exam Narrative GENERAL: Sedated on the vent HEENT: Atraumatic; normocephalic EYES; Anicteric, Normal Conjunctiva NECK; supple, normal thyroid, RESPIRATORY: Diminished to auscultation CARDIOVASCULAR: Regular S1 S2, GI: soft, normoactive bowel sounds, : No Renal angle tenderness; EXTREMITIES: edema, no clubbing, MUSCULOSKELETAL: no muscle wasting NEURO: Sedated on the vent SKIN: No Rash Assessment & Plan Assessment/Plan (1) Acute UTI: PLAN: Plan Patient is a 74-year-old lady who presented with nausea vomiting and generalized malaise. Patient was found to have acute cystitis with septic shock admitted to the intensive care unit for further management 1. Septic shock ? Secondary to acute cystitis patient has history of recent ESBL E. coli managed with aggressive IV fluid resuscitation, broad-spectrum antibiotic therapy with meropenem after cultures have been sent we will follow-up on result ? 12/03/2023 patient seen in consultation by Dr. Peñaloza with ID recommended continuation of current IV therapy with meropenem ? 12/04/2023; patient remains on broad-spectrum antibiotic therapy as well as Levophed 2. Acute hypoxic respiratory failure -Chest x-ray obtained demonstrated diffuse interstitial airspace opacity consistent with edema and/or pneumonia bilateral small pleural effusion.. Case discussed with Dr. Williamson with critical care plan is for patient to be intubated if there is no rapid turnaround ? 12/03/2023; patient was intubated the day prior, given the rapidly deteriorating respiratory status. Remains on the vent Vent management deferred to critical care ? 12/04/2023;Patient seen remains on the vent, did fail her weaning trial this morning. She continues to have copious amount of secretions 3. Acute kidney injury ? Present on admission resolved with IV hydration 4. Hypomagnesemia -Corrected for protocol 5. Bradycardia ? Junctional patient was on metoprolol held seen in consultation by cardiology ? Patient was placed on Precedex to be discontinued given relative bradycardia 6. Hypokalemia -Corrected per protocol 7. Essential hypertension ? Antihypertensives held on admission due to relative hypotension 8. Dyslipidemia -Patient is on statin therapy, continued at home dose 9. Degenerative joint disease ? Pain meds as needed 10. Psoriatic arthritis ? Patient was previously on Humira which has been held for almost a month currently on prednisone this was changed to hydrocortisone 11. Coronary artery disease ? Patient is on guideline directed medical therapy did continue 12. DVT prophylaxis ? SC heparin Time spent in the patient's overall evaluation,decision-making process, review of diagnostic data, adjustment of management, discussion with other providers, nursing nursing and ancillary staff involved in patient's care documentation, 50 Minutes Charges/Coding Visit Charges Inpatient E&M: 80404 [facility] Hosp L3
[2023-12-04] MEDS: Potassium Chloride Oral Soln 20 MEQ/15 ML UDC GT ×2 (11:18→16:27)
--- NOTE | 2023-12-04 13:50 | PCM.PN.ID ---
Physical Exam Narrative On vent, no fever Const no apparent distress Resp Auscultation: diminished lung sounds Cardio regular rate and regular rhythm GI soft to palpation, non-tender and non-distended Skin no rashes or lesions noted ID ID: Route of nutrition/ use of supplements: [] Nutritional Intake: [] IV Site: [] Clinton Catheter: [] Assessment & Plan Assessment/Plan (1) Septic shock: PLAN: Ucx with ESBL ecoli and strep. Cont jeannie, plan on one week total course, start date was 11/30/23. On vent now. Will follow (2) Urinary tract infection: QUALIFIERS: Urinary tract infection type: site unspecified Hematuria presence: without hematuria Qualified Code(s): N39.0 - Urinary tract infection, site not specified (3) Chronic hypoxemic respiratory failure:
[2023-12-04] MEDS: Propofol 10MG/Ml 1,000 MG/100 ML Bottle 15 MG CONT INF (14:00)
[2023-12-04] MEDS: Vital AF 1.2 Cal Liquid 1,000 ML 55 ML GT (14:40)
[2023-12-04] MEDS: tiZANidine HCl 2 MG Tablet 4 MG PO (20:41)
[2023-12-04] MEDS: Atorvastatin Calcium 40 MG Tablet PO (21:16)
[2023-12-05] VITALS (42 sets, daily range): BP systolic 85–180; BP diastolic 42–79; PULSE 69–110; RESP 14–50; TEMP 37.1–38.3; O2SAT 91–97; BMI 37.8
[2023-12-05] MEDS: Ipratropium/Albuterol Sulfate 3 ML AMPUL.NEB INHALATION ×4 (01:12→19:07)
[2023-12-05] MEDS: fentaNYL drip 100 ML 12.5 MCG CONT INF (01:44)
[2023-12-05] MEDS: Norepinephrine 8 MG in 0.9% Normal Saline (250mL Bag) 242 ML 13.0999999999999996 MG CONT INF (03:25)
[2023-12-05 03:59] LABS: Absolute Lymphocyte Count 2.89 X10^3/uL (0.83-4.51); Basophil# 0.04 X10^3/uL; Basophil% 0.4 % (0-1); Eosinophils% 12.9 % (0-5); Hemoglobin 9.2 g/dL (12.0-15.0); Lymphocyte # 2.89 X10^3/ul (0.83-4.51); Lymphocyte % 28.7 % (19-41); Mean Corp Hgb Conc 30.7 g/dL (32-36); Mean Corpuscular Hgb 30.6 pg (27.0-32.0); Mean Corpuscular Volume 99.7 fL (81-99); Mean Platelet Vol. 10.5 fl (6.2-12.0); Monocyte# 0.73 X10^3/uL; Monocyte% 7.2 % (0-10); NRBC Flagged by Analyzer 0 % (0-5); Neutrophil # 5.01 X10^3/uL (2.7-7.7); Neutrophil % 49.8 % (47-70); Platelet Count 278 K/mm3 (150-450); RBC Distribution Width CV 14.8 % (11.6-14.6); RBC Distribution Width SD 53.9 fl (35.1-43.9); Red Blood Count 3.01 M/mm3 (4.2-5.4); White Blood Count 10.1 K/mm3 (4.4-11.0)
--- NOTE | 2023-12-05 04:58 | CPS ---
Patient attempted to wean at this time. Placed on CPAP 5/5 40%. After 3 minutes the patients RR increased to > 50. Placed back on AC/VC and sedation restarted by nursing.
[2023-12-05] MEDS: Meropenem 1 GM in 0.9% Normal Saline (100mL MB+) 100 ML IV ×3 (05:07→20:36)
[2023-12-05 06:11] LABS: Anion Gap 4 (5-15); BUN 16 mg/dL (7-18); BUN/Creat Ratio 36.4 RATIO (10-20); Calcium,Total 8.2 mg/dL (8.5-10.1); Chloride 103 mmol/L (98-107); Creatinine, Serum 0.44 mg/dL (0.55-1.02); EST Glomerular Filtration Rate 149 mL/min (>60); Est Glom Filt Rate - Afr Amer 181 mL/min (>60); Estimated Creatinine Clearance 73.11 ml/min; Glucose 148 mg/dL (74-106); Potassium 3.9 mmol/L (3.5-5.1); Sodium Level 141 mmol/L (136-145)
[2023-12-05] MEDS: Vital AF 1.2 Cal Liquid 1,000 ML 60 ML GT ×2 (06:15→22:56)
[2023-12-05] MEDS: Budesonide Respules 0.5 MG/2 ML AMPUL.NEB. INHALATION ×2 (06:47→19:07)
--- NOTE | 2023-12-05 07:03 | PN.CC_ITS ---
Assessment & Plan Assessment/Plan (1) Septic shock: PLAN: Plan RECOMMENDATIONS: 1. Continue assist-control mode of mechanical ventilation. Wean FiO2 and PEEP to maintain saturations at or above 90%. 2. Continue antimicrobials per ID recommendations. 3. Continue attempts at intermittent diuresis, as tolerated by hemodynamics and renal function. 4. Continue paired spontaneous awakening and breathing trials daily. 5. Continue bronchodilator therapy. 6. Continue tube feeding as tolerated. 7. Continue appropriate DVT and GI prophylaxis. IMPRESSIONS: 1. Acute on chronic hypoxemic respiratory failure The patient has a known history of severe restrictive ventilatory mechanics along with chronic hypoxemic respiratory failure with a baseline requirement of 2 L/min at rest and 4 L/min with exertion. The patient's pulmonary history is significant for any evolving interstitial lung process in the setting of known psoriatic arthritis on methotrexate and Humira. The patient was initially admitted with septic shock in the setting of ESBL E. coli UTI. She was volume resuscitated and developed hypervolemia. Her chest imaging demonstrated findings concerning for bilateral pulmonary edema superimposed upon a background of chronic interstitial changes. The patient was diuresed aggressively, but continued to decompensate from a respiratory perspective. Ultimately, she was intubated on the morning of December 01. Plan to continue current supportive measures including assist-control mode of mechanical ventilation. Antibiotics will be continued per ID recommendations. The patient will be continued on tube feeding as tolerated. Continue attempts at paired spontaneous awakening and breathing trials daily. Will continue ongoing attempts at intermittent diuresis as tolerated by hemodynamics and renal function. 2. Septic shock secondary to ESBL E. coli UTI Continue antimicrobials per ID recommendations. 3. History of interstitial lung disease/coronary artery disease/b radycardia/psoriatic arthritis Complicates care, management, recovery and prognosis. Continue home medications as indicated. Cardiology is following to assist with medical management. TIME: 31 minutes of critical care time, independent of procedures, was spent addressing the patient's acute on chronic hypoxemic respiratory failure, septic shock secondary to ESBL E. coli UTI, interstitial lung disease, review of all data and collaboration with care team. Subjective Subjective The patient was seen and examined at the bedside this morning. Events from the last 24 hours have been reviewed. The patient is currently afebrile, hemodynamically stable and maintaining appropriate oxygen saturations on assist- control mode mechanical ventilation with an FiO2 requirement of 40% and PEEP of 5. The patient was weaned off of Levophed overnight. Her blood pressures are somewhat borderline this morning, but acceptable. The patient once again failed her spontaneous breathing trial due to increased tachypnea and work of breathing. Nursing staff reports ongoing issues with endotracheal tube secretions. The patient is documented to be overall net +2.5 L for the hospitalization. Hemoglobin and platelet count are stable. Creatinine is within normal limits. The patient continues to tolerate tube feeding. Objective Data Objective Data The patient's most recent lab work, culture data and imaging studies have all been personally reviewed. Urine culture dated November 27 was positive for ESBL E. coli. Blood cultures have not demonstrated any growth to date. Sputum culture is pending. COVID, influenza and RSV PCR's were again negative on December 01. Vital Signs: Vital Signs Temp Pulse Resp BP Pulse Ox O2 Del Method O2 Flow Rate 100.8 F H 98 17 100/52 L 93 Mechanical Ventilator 40 12/05/23 06:00 12/05/23 06:47 12/05/23 06:47 12/05/23 06:30 12/05/23 06:47 12/05/23 06:00 12/04/23 08:00 FiO2 40 12/05/23 06:47 Oxygen Flow Rate (L/min) 40 Oxygen Delivery Method Mechanical Ventilator Weight: 220 lb 10.923 oz Body Mass Index (BMI) 37.8 Intake & Output: Intake and Output for Last 24 Hours 12/03/23 12/04/23 12/05/23 23:59 23:59 23:59 Intake Total 2699.79 / 2776.99 2292.71 / 2367.59 1088.79 / 1088.79 Output Total 1600 / 1600 5275 / 5275 500 / 500 Balance 1099.79 / 1176.99 -2982.29 / -2907.41 588.79 / 588.79 Lab / Micro Data Attestation: I reviewed the patient's lab results. 12/05/23 03:50 12/05/23 03:50 Labs: Laboratory Results - last 24 hr 12/05/23 03:50: WBC 10.1, RBC 3.01 L, Hgb 9.2 L, Hct 30.0 L, MCV 99.7 H, MCH 30 .6, MCHC 30.7 L, RDW Std Deviation 53.9 H, RDW Coeff of Sonya 14.8 H, Plt Count 278, MPV 10.5, Immature Gran % (Auto) 1.000 H, Neut % (Auto) 49.8, Lymph % (Auto) 28.7, [place] % (Auto) 7.2, Eos % (Auto) 12.9 H, Baso % (Auto) 0.4, Absolute Neuts (auto) 5.0, Absolute Lymphs (auto) 2.89, Nucleated RBC % 0, Sodium 141, Potassium 3.9, Chloride 103, Carbon Dioxide 34.0 H, Anion Gap 4 L, BUN 16, Creatinine 0.44 L, Estim Creat Clear Calc 73.11, Est GFR (MDRD) Af Amer 181, Est GFR (MDRD) Non-Af 149, BUN/Creatinine Ratio 36.4 H, Glucose 148 H, Calcium 8.2 L Micro: Microbiology 11/29/23 12:28 Blood Culture (Wb) - Anticubital Right Blood Culture - Final No growth in 5 days. 11/29/23 11:54 Blood Culture (Wb) - Anticubital Right Blood Culture - Final No growth in 5 days. 12/02/23 08:21 Sputum, Induced/Lukens Gram Stain - Final 12/02/23 08:21 Sputum, Induced/Lukens Respiratory Culture - Final Presumptive C albicans 12/02/23 08:21 Mucosa - Nose SARS-CoV-2, Influenza & RSV (PCR) - Final 11/29/23 12:19 Urine, Clean Catch Urine Culture - Final Culture exhibits no growth. 11/29/23 12:19 Mucosa - Nasopharyngeal SARS-CoV-2, Influenza & RSV (PCR) - Final ABG Data ABG results: ABG 12/02/23 12/02/23 07:31 08:49 Specimen Type ART ART Sample Site L Brach L Brach pH 7.48 H 7.58 H Bicarbonate Actual 30.9 H 30.2 H Total CO2 32 31 Base Excess 7 H 8 H O2 Saturation 90 L 100 H O2 % 55.0 100.0 ABG pCO2 41.7 32.1 L ABG pO2 54 L 159 H Manoj Test Positive N/A Respiration Rate 12 14 O2 Delivery Device BiPAP Adult Vent Vent Mode Not entered AC Tidal Volume 400.0 400.0 POC PEEP 5 Clinical Comments [facility] Radiography Diagnostic Testing: Radiology Impression Chest X-Ray 12/02/23 06:50 IMPRESSION: Stable diffuse interstitial airspace opacities consistent with edema and/or pneumonia. Probable small bilateral pleural effusions. Electronically Signed: Rigoberto Morales DO at 7:27 EST , Chest X-Ray 12/02/23 08:11 IMPRESSION: Endotracheal tube terminating 3.3 cm above the du. Stable bilateral patchy opacities may reflect some combination of edema, pneumonia and/or atelectasis. Electronically Signed: Elena Charlton MD at 8:39 EST , Rhythm Strip Rhythm Strip: Sinus Rhythm Rate: 70 Physical Exam Const Constitutional Narrative: Intubated, sedated and mechanically ventilated. No ventilator dyssynchrony. General Appearance: ill appearing HEENT normocephalic and head/scalp atraumatic Mouth: endotracheal tube in place and OG tube in place Eyes PERRL and EOMs intact bilaterally Neck supple General: trachea midline Chest inspection of chest normal Resp Resp Narrative: Coarse mechanical breath sounds. Auscultation: diminished lung sounds Cardio regular rate, regular rhythm, S1 normal heart sound and S2 normal heart sound GI normal to inspection, nondistended, normoactive bowel sounds Extremity no clubbing, cyanosis or edema Skin no rashes or lesions noted Neuro Sensorium / Orientation: sedated on vent Charges/Coding Procedures Hospitalists Procedures: [id number] Critical Care 1st Hr
--- NOTE | 2023-12-05 07:13 | PCM.PN.HOSP ---
Reason for Visit Reason for Visit: Diagnoses Sepsis, unspecified organism (11/29/23) Atherosclerotic heart disease of [place] coronary artery without angina pectoris (11/29/23) Chronic respiratory failure with hypoxia (11/29/23) Urinary tract infection, site not specified (11/29/23) Bradycardia, unspecified (11/29/23) Severe sepsis with septic shock (11/29/23) Subjective Subjective Patient remains on the vent and apparently did fail her weaning trial again this morning. Objective Data Objective Data Vital Signs: Vital Signs Temp Pulse Resp BP Pulse Ox O2 Del Method O2 Flow Rate 100.8 F H 102 H 18 111/47 L 93 Mechanical Ventilator 40 12/05/23 07:00 12/05/23 07:00 12/05/23 07:00 12/05/23 07:00 12/05/23 07:00 12/05/23 07:00 12/04/23 08:00 FiO2 40 12/05/23 07:00 Oxygen Flow Rate (L/min) 40 Oxygen Delivery Method Mechanical Ventilator Weight: 100.1 kg Body Mass Index (BMI) 37.8 Intake & Output: Intake and Output for Last 24 Hours 12/03/23 12/04/23 12/05/23 23:59 23:59 23:59 Intake Total 2699.79 / 2776.99 2292.71 / 2367.59 1098.34 / 1098.34 Output Total 1600 / 1600 5275 / 5275 500 / 500 Balance 1099.79 / 1176.99 -2982.29 / -2907.41 598.34 / 598.34 Lab / Micro Data 12/05/23 03:50 12/05/23 03:50 Labs: Laboratory Results - last 24 hr 12/05/23 03:50: WBC 10.1, RBC 3.01 L, Hgb 9.2 L, Hct 30.0 L, MCV 99.7 H, MCH 30.6, MCHC 30.7 L, RDW Std Deviation 53.9 H, RDW Coeff of Sonya 14.8 H, Plt Count 278, MPV 10.5, Immature Gran % (Auto) 1.000 H, Neut % (Auto) 49.8, Lymph % (Auto) 28.7, [place] % (Auto) 7.2, Eos % (Auto) 12.9 H, Baso % (Auto) 0.4, Absolute Neuts (auto) 5.0, Absolute Lymphs (auto) 2.89, Nucleated RBC % 0, Sodium 141, Potassium 3.9, Chloride 103, Carbon Dioxide 34.0 H, Anion Gap 4 L, BUN 16, Creatinine 0.44 L, Estim Creat Clear Calc 73.11, Est GFR (MDRD) Af Amer 181, Est GFR (MDRD) Non-Af 149, BUN/Creatinine Ratio 36.4 H, Glucose 148 H, Calcium 8.2 L Micro: Microbiology 11/29/23 12:28 Blood Culture (Wb) - Anticubital Right Blood Culture - Final No growth in 5 days. 11/29/23 11:54 Blood Culture (Wb) - Anticubital Right Blood Culture - Final No growth in 5 days. 12/02/23 08:21 Sputum, Induced/Lukens Gram Stain - Final 12/02/23 08:21 Sputum, Induced/Lukens Respiratory Culture - Final Presumptive C albicans 12/02/23 08:21 Mucosa - Nose SARS-CoV-2, Influenza & RSV (PCR) - Final 11/29/23 12:19 Urine, Clean Catch Urine Culture - Final Culture exhibits no growth. 11/29/23 12:19 Mucosa - Nasopharyngeal SARS-CoV-2, Influenza & RSV (PCR) - Final Rhythm Strip Rhythm Strip: Sinus Rhythm Rate: 70 Physical Exam Narrative GENERAL: Sedated on the vent HEENT: Atraumatic; normocephalic EYES; Anicteric, Normal Conjunctiva NECK; supple, normal thyroid, RESPIRATORY: Diminished to auscultation CARDIOVASCULAR: Regular S1 S2, GI: soft, normoactive bowel sounds, : No Renal angle tenderness; EXTREMITIES: edema, no clubbing, MUSCULOSKELETAL: no muscle wasting NEURO: Sedated on the vent SKIN: No Rash Assessment & Plan Assessment/Plan (1) Acute UTI: PLAN: Plan Patient is a 74-year-old lady who presented with nausea vomiting and generalized malaise. Patient was found to have acute cystitis with septic shock admitted to the intensive care unit for further management 1. Septic shock ? Secondary to acute cystitis patient has history of recent ESBL E. coli managed with aggressive IV fluid resuscitation, broad-spectrum antibiotic therapy with meropenem after cultures have been sent we will follow-up on result ? 12/03/2023 patient seen in consultation by Dr. Peñaloza with ID recommended continuation of current IV therapy with meropenem ? 12/04/2023; patient remains on broad-spectrum antibiotic therapy as well as Levophed 2. Acute hypoxic respiratory failure -Chest x-ray obtained demonstrated diffuse interstitial airspace opacity consistent with edema and/or pneumonia bilateral small pleural effusion.. Case discussed with Dr. Williamson with critical care plan is for patient to be intubated if there is no rapid turnaround ? 12/03/2023; patient was intubated the day prior, given the rapidly deteriorating respiratory status. Remains on the vent Vent management deferred to critical care ? 12/04/2023;Patient seen remains on the vent, did fail her weaning trial this morning. She continues to have copious amount of secretions ? 12/05/2023;Patient remains on the vent and apparently did fail her weaning trial again this morning. 3. Acute kidney injury ? Present on admission resolved with IV hydration 4. Hypomagnesemia -Corrected for protocol 5. Bradycardia ? Junctional patient was on metoprolol held seen in consultation by cardiology ? Patient was placed on Precedex to be discontinued given relative bradycardia 6. Hypokalemia -Corrected per protocol 7. Essential hypertension ? Antihypertensives held on admission due to relative hypotension 8. Dyslipidemia -Patient is on statin therapy, continued at home dose 9. Degenerative joint disease ? Pain meds as needed 10. Psoriatic arthritis ? Patient was previously on Humira which has been held for almost a month currently on prednisone this was changed to hydrocortisone 11. Coronary artery disease ? Patient is on guideline directed medical therapy did continue 12. DVT prophylaxis ? SC heparin 13. Anemia - Secondary to chronic disorder monitoring H&H and transfuse if patient becomes symptomatic or hemoglobin falls below 7 Time spent in the patient's overall evaluation,decision-making process, review of diagnostic data, adjustment of management, discussion with other providers, nursing nursing and ancillary staff involved in patient's care documentation, 50 Minutes Charges/Coding Visit Charges Inpatient E&M: 69985 [facility] L3
[2023-12-05] MEDS: Senna/Docusate Sodium 1 Tablet 2 TABLET PO ×2 (08:25→20:36)
[2023-12-05] MEDS: Chlorhexidine 15 ML PO ×2 (08:25→20:37)
[2023-12-05] MEDS: Potassium Chloride Oral Soln 20 MEQ/15 ML UDC GT ×2 (08:25→17:18)
[2023-12-05] MEDS: Pantoprazole Sodium 40 MG in 0.9% Normal Saline (100mL MB+) 100 ML 330 MG IV (08:26)
[2023-12-05] MEDS: Aspirin 81 MG TAB.CHEW PO (08:26)
[2023-12-05] MEDS: Clopidogrel Bisulfate 75 MG Tablet PO (08:26)
[2023-12-05] MEDS: Polyethylene Glycol 3350 17 GM PACKET PO (08:26)
[2023-12-05] MEDS: Heparin Injection (Vial) 5,000 UNIT/ML VIAL 5000 UNIT SC ×2 (08:26→20:37)
[2023-12-05] MEDS: CHLORHEXIDINE GLUC 2% CLOTH 1 EACH TOWELETTE TOPICAL (08:34)
[2023-12-05] MEDS: Propofol 10MG/Ml 1,000 MG/100 ML Bottle 9.09999999999999964 MG CONT INF (09:51)
[2023-12-05] MEDS: Magnesium Citrate 300 ML GT (10:00)
[2023-12-05] MEDS: TITRATION PARAMETER CHANGE 1 EACH IV (11:04)
--- NOTE | 2023-12-05 12:42 | RAD_ITS ---
EXAM: XR CHEST, 1 VIEW CLINICAL INDICATION: fever TECHNIQUE: Frontal view of the chest. COMPARISON: 12/02/2023. FINDINGS: LUNGS AND PLEURAL SPACES: Persistent pulmonary interstitial edema but less. Pulmonary hypoinflation. No pneumothorax. No effusion. HEART: Cardiomegaly is unchanged. MEDIASTINUM: Central airways and mediastinal contour are unremarkable. BONES/JOINTS: Unremarkable. No acute fracture. SOFT TISSUES: Unremarkable. TUBES, LINES AND DEVICES: ET tube tip is 4 cm above the du. OG tube tip is inside the left gastric cavity and the sidehole is near the EG junction. Right PICC line catheter tip is in the distal SVC. RAD/Chest 1 View (Portable) IMPRESSION: Persistent diffuse pulmonary interstitial edema but less when compared to 12/02/2023. Electronically Signed: Marcos Cifuentes MD at 13:49 EST ,
--- NOTE | 2023-12-05 13:14 | PCM.PN.ID ---
Physical Exam Narrative Fever this AM, thick secretions per nursing Const Constitutional Narrative: intubated, some eye opening Resp Effort and Inspection: mechanically ventilated Auscultation: rhonchi Cardio regular rate and regular rhythm GI soft to palpation, non-tender and non-distended Extremity General Extremity: edema Skin no rashes or lesions noted ID ID: Route of nutrition/ use of supplements: [] Nutritional Intake: [] IV Site: [] [place] Catheter: [] Assessment & Plan Assessment/Plan (1) Septic shock: PLAN: Ucx with ESBL ecoli and strep. Cont jeannie. On vent now. Now with new fever, will check cxr, sputum cx, bcx x2, and covid pcr. If worsens, would add iv vanc. Will follow (2) Urinary tract infection: QUALIFIERS: Urinary tract infection type: site unspecified Hematuria presence: without hematuria Qualified Code(s): N39.0 - Urinary tract infection, site not specified (3) Chronic hypoxemic respiratory failure:
[2023-12-05] MEDS: fentaNYL drip 100 ML 10 MCG CONT INF ×2 (13:59→23:59)
[2023-12-05] MEDS: Propofol 10MG/Ml 1,000 MG/100 ML Bottle 9 MG CONT INF (18:42)
[2023-12-05] MEDS: 0.9% Normal Saline (250mL Bag) 250 ML 15 ML IV (18:43)
[2023-12-05] MEDS: tiZANidine HCl 2 MG Tablet 4 MG PO (20:36)
[2023-12-05] MEDS: Atorvastatin Calcium 40 MG Tablet PO (20:37)
[2023-12-06] VITALS (52 sets, daily range): BP systolic 65–147; BP diastolic 36–70; PULSE 16–116; RESP 14–35; TEMP 37.1–38.4; O2SAT 92–99; BMI 38.2
[2023-12-06] MEDS: Ipratropium/Albuterol Sulfate 3 ML AMPUL.NEB INHALATION ×4 (01:11→19:06)
[2023-12-06] MEDS: Propofol 10MG/Ml 1,000 MG/100 ML Bottle 9 MG CONT INF ×3 (05:38→22:00)
[2023-12-06] MEDS: Meropenem 1 GM in 0.9% Normal Saline (100mL MB+) 100 ML IV ×3 (05:38→21:07)
[2023-12-06] MEDS: Budesonide Respules 0.5 MG/2 ML AMPUL.NEB. INHALATION ×2 (06:55→19:07)
--- NOTE | 2023-12-06 07:08 | PCM.PN.HOSP ---
Reason for Visit Reason for Visit: Diagnoses Sepsis, unspecified organism (11/29/23) Atherosclerotic heart disease of [place] coronary artery without angina pectoris (11/29/23) Chronic respiratory failure with hypoxia (11/29/23) Urinary tract infection, site not specified (11/29/23) Bradycardia, unspecified (11/29/23) Severe sepsis with septic shock (11/29/23) Subjective Subjective Patient seen remains on the vent. Per nursing staff blood pressure is improving. Patient has been weaned off Levophed drip Objective Data Objective Data Vital Signs: Vital Signs Temp Pulse Resp BP Pulse Ox O2 Del Method O2 Flow Rate 100.1 F H 92 19 H 137/62 H 96 Mechanical Ventilator 40 12/06/23 07:00 12/06/23 07:00 12/06/23 07:00 12/06/23 07:00 12/06/23 07:00 12/06/23 07:00 12/04/23 08:00 FiO2 40 12/06/23 07:00 Oxygen Flow Rate (L/min) 40 Oxygen Delivery Method Mechanical Ventilator Weight: 101.2 kg Body Mass Index (BMI) 38.2 Intake & Output: Intake and Output for Last 24 Hours 12/04/23 12/05/23 12/06/23 23:59 23:59 23:59 Intake Total 2292.71 / 2367.59 3019.77 / 3083.64 432.67 / 432.67 Output Total 5275 / 5275 1455 / 1455 450 / 450 Balance -2982.29 / -2907.41 1564.77 / 1628.64 -17.33 / -17.33 Lab / Micro Data 12/06/23 05:25 12/06/23 05:25 Micro: Microbiology 12/05/23 13:24 Sputum, Induced/Lukens Gram Stain - Final 12/05/23 13:24 Mucosa - Nose SARS-CoV-2, Influenza & RSV (PCR) - Final 11/29/23 12:28 Blood Culture (Wb) - Anticubital Right Blood Culture - Final No growth in 5 days. 11/29/23 11:54 Blood Culture (Wb) - Anticubital Right Blood Culture - Final No growth in 5 days. 12/02/23 08:21 Sputum, Induced/Lukens Gram Stain - Final 12/02/23 08:21 Sputum, Induced/Lukens Respiratory Culture - Final Presumptive C albicans 12/02/23 08:21 Mucosa - Nose SARS-CoV-2, Influenza & RSV (PCR) - Final 11/29/23 12:19 Urine, Clean Catch Urine Culture - Final Culture exhibits no growth. 11/29/23 12:19 Mucosa - Nasopharyngeal SARS-CoV-2, Influenza & RSV (PCR) - Final Radiography Diagnostic Testing: Radiology Impression Chest X-Ray 12/05/23 12:42 IMPRESSION: Persistent diffuse pulmonary interstitial edema but less when compared to 12/02/2023. Electronically Signed: Marcos Cifuentes MD at 13:49 EST , Rhythm Strip Rhythm Strip: Sinus Rhythm Rate: 70 Physical Exam Narrative GENERAL: Sedated on the vent HEENT: Atraumatic; normocephalic EYES; Anicteric, Normal Conjunctiva NECK; supple, normal thyroid, RESPIRATORY: Diminished to auscultation CARDIOVASCULAR: Regular S1 S2, GI: soft, normoactive bowel sounds, : No Renal angle tenderness; EXTREMITIES: edema, no clubbing, MUSCULOSKELETAL: no muscle wasting NEURO: Sedated on the vent SKIN: No Rash Assessment & Plan Assessment/Plan (1) Acute UTI: PLAN: Plan Patient is a 74-year-old lady who presented with nausea vomiting and generalized malaise. Patient was found to have acute cystitis with septic shock admitted to the intensive care unit for further management 1. Septic shock ? Secondary to acute cystitis patient has history of recent ESBL E. coli managed with aggressive IV fluid resuscitation, broad-spectrum antibiotic therapy with meropenem after cultures have been sent we will follow-up on result ? 12/03/2023 patient seen in consultation by Dr. Peñaloza with ID recommended continuation of current IV therapy with meropenem ? 12/04/2023; patient remains on broad-spectrum antibiotic therapy as well as Levophed ? 12/06/2023 patient remains on the vent. Has been weaned off Levophed drip 2. Acute hypoxic respiratory failure -Chest x-ray obtained demonstrated diffuse interstitial airspace opacity consistent with edema and/or pneumonia bilateral small pleural effusion.. Case discussed with Dr. Williamson with critical care plan is for patient to be intubated if there is no rapid turnaround ? 12/03/2023; patient was intubated the day prior, given the rapidly deteriorating respiratory status. Remains on the vent Vent management deferred to critical care ? 12/04/2023;Patient seen remains on the vent, did fail her weaning trial this morning. She continues to have copious amount of secretions ? 12/05/2023;Patient remains on the vent and apparently did fail her weaning trial again this morning. ? 12/06/2023 plan is for patient to undergo weaning trial 3. Acute kidney injury ? Present on admission resolved with IV hydration 4. Hypomagnesemia -Corrected for protocol 5. Bradycardia ? Junctional patient was on metoprolol held seen in consultation by cardiology ? Patient was placed on Precedex to be discontinued given relative bradycardia 6. Hypokalemia -Corrected per protocol 7. Essential hypertension ? Antihypertensives held on admission due to relative hypotension 8. Dyslipidemia -Patient is on statin therapy, continued at home dose 9. Degenerative joint disease ? Pain meds as needed 10. Psoriatic arthritis ? Patient was previously on Humira which has been held for almost a month currently on prednisone this was changed to hydrocortisone 11. Coronary artery disease ? Patient is on guideline directed medical therapy did continue 12. DVT prophylaxis ? SC heparin 13. Anemia - Secondary to chronic disorder monitoring H&H and transfuse if patient becomes symptomatic or hemoglobin falls below 7 Time spent in the patient's overall evaluation,decision-making process, review of diagnostic data, adjustment of management, discussion with other providers, nursing nursing and ancillary staff involved in patient's care documentation, 55 Minutes Charges/Coding Visit Charges Inpatient E&M: [id number] [facility] L3
[2023-12-06 07:17] LABS: Absolute Lymphocyte Count 2.61 X10^3/uL (0.83-4.51); Absolute Neutrophil Count 5.1 X10^3/uL (2.0-7.7); Basophil# 0.06 X10^3/uL; Basophil% 0.6 % (0-1); Eosinophil# 1.01 X10^3/uL; Eosinophils% 10.5 % (0-5); Hematocrit 31.2 % (37-47); Hemoglobin 9.4 g/dL (12.0-15.0); Lymphocyte # 2.61 X10^3/ul (0.83-4.51); Lymphocyte % 27.2 % (19-41); Mean Corp Hgb Conc 30.1 g/dL (32-36); Mean Corpuscular Hgb 30.2 pg (27.0-32.0); Mean Corpuscular Volume 100.3 fL (81-99); Mean Platelet Vol. 11.1 fl (6.2-12.0); Monocyte% 7.3 % (0-10); NRBC Flagged by Analyzer 0 % (0-5); Neutrophil % 53.1 % (47-70); Platelet Count 288 K/mm3 (150-450); RBC Distribution Width CV 15.1 % (11.6-14.6); RBC Distribution Width SD 54.7 fl (35.1-43.9); Red Blood Count 3.11 M/mm3 (4.2-5.4); White Blood Count 9.6 K/mm3 (4.4-11.0)
[2023-12-06 07:31] LABS: Anion Gap -1 (5-15); BUN 21 mg/dL (7-18); BUN/Creat Ratio 52.9 RATIO (10-20); Calcium,Total 8.8 mg/dL (8.5-10.1); Chloride 103 mmol/L (98-107); EST Glomerular Filtration Rate 168 mL/min (>60); Est Glom Filt Rate - Afr Amer 203 mL/min (>60); Estimated Creatinine Clearance 73.55 ml/min; Glucose 142 mg/dL (74-106); Phosphorus 2.6 mg/dL (2.5-4.9); Potassium 4.7 mmol/L (3.5-5.1); Sodium Level 139 mmol/L (136-145)
[2023-12-06] MEDS: Potassium Chloride Oral Soln 20 MEQ/15 ML UDC GT ×2 (08:00→16:52)
[2023-12-06] MEDS: Clopidogrel Bisulfate 75 MG Tablet PO (08:00)
[2023-12-06] MEDS: Senna/Docusate Sodium 1 Tablet 2 TABLET PO ×2 (08:00→21:06)
[2023-12-06] MEDS: Aspirin 81 MG TAB.CHEW PO (08:00)
[2023-12-06] MEDS: Polyethylene Glycol 3350 17 GM PACKET PO (08:00)
[2023-12-06] MEDS: Chlorhexidine 15 ML PO ×2 (08:00→21:07)
[2023-12-06] MEDS: Heparin Injection (Vial) 5,000 UNIT/ML VIAL 5000 UNIT SC ×2 (08:00→21:07)
[2023-12-06] MEDS: CHLORHEXIDINE GLUC 2% CLOTH 1 EACH TOWELETTE TOPICAL (08:01)
[2023-12-06] MEDS: Pantoprazole Sodium 40 MG in 0.9% Normal Saline (100mL MB+) 100 ML 330 MG IV (09:27)
[2023-12-06] MEDS: Furosemide 100 MG/10 ML Vial 60 MG IV (09:27)
[2023-12-06] MEDS: Acetaminophen 650 MG/20 ML UDC GT (09:42)
[2023-12-06] MEDS: fentaNYL drip 100 ML 12.5 MCG CONT INF (10:33)
[2023-12-06] MEDS: Vital AF 1.2 Cal Liquid 1,000 ML 60 ML GT (13:20)
[2023-12-06] MEDS: Magnesium Citrate 300 ML GT (16:52)
--- NOTE | 2023-12-06 17:32 | PCM.PN.TICU ---
Objective Data Objective Data Vital Signs: Vital Signs Last response Temperature 37.3 C H 12/06/23 16:00 Temperature Source Core 12/06/23 16:00 Pulse Rate 96 12/06/23 17:09 Pulse Strength Weak (1+) 12/05/23 08:19 Respiratory Rate 15 12/06/23 17:09 Respiratory Effort Mechanically Ventilated 12/06/23 16:00 Respiratory Depth Normal 12/06/23 16:00 Respiratory Pattern Normal 12/06/23 17:09 Blood Pressure 118/51 L 12/06/23 17:00 Blood Pressure Mean 73 12/06/23 17:00 Blood Pressure Source Monitor 12/06/23 12:00 Blood Pressure Position Semi-Fowlers 12/06/23 17:00 Blood Pressure Location Left Arm 12/06/23 17:00 Pulse Ox 93 12/06/23 17:09 Oxygen Delivery Method Mechanical Ventilator 12/06/23 17:00 Oxygen Flow Rate (L/min) 40 12/04/23 08:00 Fraction of Inspired Oxygen (FIO2) 35 12/06/23 17:09 I&O: I&O Last 24 Hours 12/05/23 12/06/23 12/06/23 23:59 11:59 23:59 Intake Total 1515.02 / 3083.64 1129.62 / 2292.62 1163.0 / 2292.62 Output Total 625 / 1455 2450 / 3500 1050 / 3500 Balance 890.02 / 1628.64 -1320.38 / -1207.38 113.0 / -1207.38 I&O: Total Stay 11/29/23 11:35 thru 12/06/23 17:00 Intake Total 15491.58 Output Total 05597 Balance 2350.58 Current Meds Ordered / Administered: Current meds ordered / Administered Generic Name Dose Route Start Last Admin Trade Name Freq PRN Reason Stop Dose Admin Acetaminophen 650 mg 12/02/23 08:31 12/06/23 09:42 Acetaminophen 650 Mg/20 Ml Udc GT 650 mg Q6H PRN PRN Administration FEVER Albuterol/Ipratropium 3 ml 11/29/23 16:48 12/06/23 12:22 Ipratropium/Albuterol Sulfate 3 Ml Ampul.Neb INHALATION 3 ml Q6H.RT RUTHIE Administration Aspirin 81 mg 11/30/23 08:00 12/06/23 08:00 Aspirin 81 Mg Tab.Chew PO 81 mg DAILY@0800 RUTHIE Administration Atorvastatin Calcium 40 mg 11/29/23 22:00 12/05/23 20:37 Atorvastatin Calcium 40 Mg Tablet PO 40 mg QHS RUTHIE Administration Budesonide 0.5 mg 11/30/23 10:30 12/06/23 06:55 Budesonide Respules 0.5 Mg/2 Ml Ampul.Neb. INHALATION 0.5 mg BID.RT RUTHIE Administration Chlorhexidine Gluconate 15 ml 12/02/23 10:00 12/06/23 08:00 Chlorhexidine 15 Ml PO 15 ml BID RUTHIE Administration Chlorhexidine Gluconate 1 each 12/03/23 10:00 12/06/23 08:01 Chlorhexidine Gluc 2% Cloth 1 Each [place] TOPICAL 1 each DAILY RUTHIE Administration Clopidogrel Bisulfate 75 mg 11/30/23 10:00 12/06/23 08:00 Clopidogrel Bisulfate 75 Mg Tablet PO 75 mg DAILY RUTHIE Administration Heparin Sodium (Porcine) 5,000 unit 11/29/23 22:00 12/06/23 08:00 Heparin Injection (Vial) 5,000 Unit/Ml Vial SC 5,000 unit Q12 RUTHIE Administration Sodium Chloride 250 mls @ 15 mls/hr 11/29/23 17:07 12/01/23 04:10 IV 0 mls/hr .[id number] PRN Infusion Additional IVPB Infusion Sodium Chloride 250 mls @ 15 mls/hr 11/29/23 17:07 12/06/23 09:12 IV 0 mls/hr .[id number] PRN Infusion Saline Flush Meropenem 1 gm/ Sodium 120 mls @ 33 mls/hr 11/30/23 07:30 12/06/23 16:42 Chloride IV Infused Q8 RUTHIE Infusion Propofol 1,000 mg in 100 mls @ 6.006 mls/hr 12/02/23 07:45 12/06/23 17:00 Diprivan CONT INF 15 mcg/kg/min .Q12H RUTHIE 9 mls/hr Titration Protocol 10 MCG/KG/MIN Fentanyl 100 mls @ 5 mls/hr 12/02/23 07:45 12/06/23 17:00 CONT INF 125 mcg/hr UD RUTHIE 12.5 mls/hr Titration Protocol 50 MCG/HR Pantoprazole Sodium 40 mg/ 110 mls @ 330 mls/hr 12/02/23 10:00 12/06/23 09:51 Sodium Chloride IV Infused Q24 RUTHIE Infusion Norepinephrine Bitartrate 8 mg 250 mls @ 9.375 mls/hr 12/03/23 02:25 12/06/23 17:00 / Sodium Chloride CONT INF 0 mcg/min .[id number] RUTHIE 0 mls/hr Titration Protocol 5 MCG/MIN Enteral Nutritional Formula 1,000 mls @ 60 mls/hr 12/03/23 09:35 12/06/23 13:20 Vital Af 1.2 [place] Liquid GT 60 mls/hr .[id number] RUTHIE Administration Melatonin 10 mg 11/29/23 16:59 12/01/23 20:31 Melatonin 10 Mg Tablet PO 10 mg HS PRN Administration Sleep Ondansetron HCl 4 mg 11/29/23 16:48 Ondansetron 4 Mg/2 Ml Vial IV Q8H PRN PRN NAUSEA/VOMITING Oxymetazoline HCl 2 spray 11/29/23 16:48 11/30/23 21:34 Oxymetazoline 0.05% 1 [place].Btl NASAL 2 spray X1 PRN Administration NASAL CONGESTION Polyethylene Glycol 17 gm 11/30/23 10:00 12/06/23 08:00 Polyethylene Glycol 3350 17 Gm Packet PO 17 gm DAILY RUTHIE Administration Potassium Chloride 20 meq 12/04/23 10:00 12/06/23 16:52 Potassium Chloride Oral Soln 20 Meq/15 Ml Udc GT 20 meq BIDCM RUTHIE Administration Senna/Docusate Sodium 2 tablet 11/30/23 22:00 12/06/23 08:00 Senna/Docusate Sodium 1 Tablet PO 2 tablet BID RUTHIE Administration Sodium Chloride 10 - 40 ml 11/29/23 17:07 12/04/23 05:10 0.9% Saline Lock 10 Ml Syringe IV 20 ml UD PRN Administration SALINE FLUSH Tizanidine HCl 4 mg 11/29/23 22:00 12/05/23 20:36 Tizanidine Hcl 2 Mg Tablet PO 4 mg QHS RUTHIE Administration Lab / Micro Data 12/06/23 05:25 12/06/23 05:25 Labs: Laboratory Results - last 24 hr 12/06/23 05:25: WBC 9.6, RBC 3.11 L, Hgb 9.4 L, Hct 31.2 L, MCV 100.3 H, MCH 30.2, MCHC 30.1 L, RDW Std Deviation 54.7 H, RDW Coeff of Sonya 15.1 H, Plt Count 288, MPV 11.1, Immature Gran % (Auto) 1.300 H, Neut % (Auto) 53.1, Lymph % (Auto) 27.2, [place] % (Auto) 7.3, Eos % (Auto) 10.5 H, Baso % (Auto) 0.6, Absolute Neuts (auto) 5.1, Absolute Lymphs (auto) 2.61, Nucleated RBC % 0, Sodium 139, Potassium 4.7, Chloride 103, Carbon Dioxide 37.0 H, Anion Gap -1 L, BUN 21 H, Creatinine 0.40 L, Estim Creat Clear Calc 73.55, Est GFR (MDRD) Af Amer 203, Est GFR (MDRD) Non-Af 168, BUN/Creatinine Ratio 52.9 H, Glucose 142 H, Calcium 8.8, Phosphorus 2.6, Magnesium 2.0 Micro: Microbiology 12/05/23 13:24 Sputum, Induced/Lukens Gram Stain - Final 12/05/23 13:24 Sputum, Induced/Lukens Respiratory Culture - Preliminary Yeast Like Organism 12/05/23 13:24 Mucosa - Nose SARS-CoV-2, Influenza & RSV (PCR) - Final Rhythm Strip Rhythm Strip: Sinus Rhythm Rate: 70 Assessment and Plan . Assessment and plan: Patient seen and examined Chart and data reviewed Sedated Developed RSB w/ SAT today MV 6-7 LPM, PIP 22, O2 0.35 HD stable Lab and pCXR reviewed PHYSICAL EXAM GEN NAD VS as above HEENT [place] NECK obese COR RRR CHEST coarse ABD soft EXT no edema SKIN w/d MELISSA NF RECOMMENDATIONS: 1. Continue assist-control mode of mechanical ventilation. Wean FiO2 and PEEP to maintain saturations at or above 90%. 2. Continue antimicrobials per ID recommendations. 3. Continue attempts at intermittent diuresis, as tolerated by hemodynamics and renal function. 4. Continue paired spontaneous awakening and breathing trials daily. 5. Continue bronchodilator therapy. 6. Continue tube feeding as tolerated. 7. Continue appropriate DVT and GI prophylaxis. IMPRESSIONS: 1. Acute on chronic hypoxemic respiratory failure The patient has a known history of severe restrictive ventilatory mechanics along with chronic hypoxemic respiratory failure with a baseline requirement of 2 L/min at rest and 4 L/min with exertion. The patient's pulmonary history is significant for any evolving interstitial lung process in the setting of known psoriatic arthritis on methotrexate and Humira. The patient was initially admitted with septic shock in the setting of ESBL E. coli UTI. She was volume resuscitated and developed hypervolemia. Her chest imaging demonstrated findings concerning for bilateral pulmonary edema superimposed upon a background of chronic interstitial changes. The patient was diuresed aggressively, but continued to decompensate from a respiratory perspective. Ultimately, she was intubated on the morning of December 01. Plan to continue current supportive measures including assist-control mode of mechanical ventilation. Antibiotics will be continued per ID recommendations. The patient will be continued on tube feeding as tolerated. Continue attempts at paired spontaneous awakening and breathing trials daily. Will continue ongoing attempts at intermittent diuresis as tolerated by hemodynamics and renal function. 2. Septic shock secondary to ESBL E. coli UTI Continue antimicrobials per ID recommendations. 3. History of interstitial lung disease/coronary artery disease/bradycardia/psoriatic arthritis Complicates care, management, recovery and prognosis. Continue home medications as indicated. Cardiology is following to assist with medical management. Critical Care Time: 50 min The entirety of this encounter was done via Telemedicine
[2023-12-06] MEDS: fentaNYL drip 100 ML 10 MCG CONT INF (19:30)
[2023-12-06] MEDS: Atorvastatin Calcium 40 MG Tablet PO (21:06)
[2023-12-06] MEDS: tiZANidine HCl 2 MG Tablet 4 MG PO (21:06)
[2023-12-07] VITALS (46 sets, daily range): BP systolic 56–155; BP diastolic 33–88; PULSE 72–124; RESP 14–34; TEMP 36.9–38.2; O2SAT 92–100; BMI 37.9
[2023-12-07] MEDS: Ipratropium/Albuterol Sulfate 3 ML AMPUL.NEB INHALATION ×4 (00:33→19:17)
[2023-12-07 03:41] LABS: Absolute Lymphocyte Count 2.46 X10^3/uL (0.83-4.51); Basophil# 0.03 X10^3/uL; Basophil% 0.4 % (0-1); Eosinophil# 0.81 X10^3/uL; Hematocrit 30.7 % (37-47); Hemoglobin 9.4 g/dL (12.0-15.0); Lymphocyte # 2.46 X10^3/ul (0.83-4.51); Lymphocyte % 30.5 % (19-41); Mean Corp Hgb Conc 30.6 g/dL (32-36); Mean Corpuscular Volume 101.3 fL (81-99); Mean Platelet Vol. 10.5 fl (6.2-12.0); Monocyte# 0.71 X10^3/uL; Monocyte% 8.8 % (0-10); NRBC Flagged by Analyzer 0 % (0-5); Neutrophil # 3.97 X10^3/uL (2.7-7.7); Neutrophil % 49.3 % (47-70); Platelet Count 284 K/mm3 (150-450); RBC Distribution Width SD 55.4 fl (35.1-43.9); Red Blood Count 3.03 M/mm3 (4.2-5.4); White Blood Count 8.1 K/mm3 (4.4-11.0)
[2023-12-07 04:00] LABS: Anion Gap 3 (5-15); BUN 24 mg/dL (7-18); BUN/Creat Ratio 53.9 RATIO (10-20); Calcium,Total 8.8 mg/dL (8.5-10.1); Chloride 99 mmol/L (98-107); Creatinine, Serum 0.44 mg/dL (0.55-1.02); EST Glomerular Filtration Rate 147 mL/min (>60); Est Glom Filt Rate - Afr Amer 178 mL/min (>60); Estimated Creatinine Clearance 73.55 ml/min; Glucose 157 mg/dL (74-106); Magnesium 2.3 mg/dL (1.6-2.6); Potassium 4.1 mmol/L (3.5-5.1); Sodium Level 139 mmol/L (136-145)
[2023-12-07] MEDS: 0.9% Saline Lock 10 ML Syringe IV ×2 (05:19→17:06)
[2023-12-07] MEDS: 0.9% Normal Saline (250mL Bag) 250 ML 15 ML IV (05:19)
[2023-12-07] MEDS: Meropenem 1 GM in 0.9% Normal Saline (100mL MB+) 100 ML IV ×3 (05:21→21:13)
[2023-12-07] MEDS: fentaNYL drip 100 ML 10 MCG CONT INF (05:22)
[2023-12-07] MEDS: Vital AF 1.2 Cal Liquid 1,000 ML 60 ML GT (05:30)
[2023-12-07] MEDS: TITRATION PARAMETER CHANGE 1 EACH IV (06:03)
[2023-12-07] MEDS: Budesonide Respules 0.5 MG/2 ML AMPUL.NEB. INHALATION ×2 (07:11→19:17)
[2023-12-07] MEDS: Aspirin 81 MG TAB.CHEW PO (07:53)
[2023-12-07] MEDS: Senna/Docusate Sodium 1 Tablet 2 TABLET PO (07:53)
[2023-12-07] MEDS: Clopidogrel Bisulfate 75 MG Tablet PO (07:53)
[2023-12-07] MEDS: Potassium Chloride Oral Soln 20 MEQ/15 ML UDC GT ×2 (07:53→16:52)
[2023-12-07] MEDS: Polyethylene Glycol 3350 17 GM PACKET PO (07:53)
[2023-12-07] MEDS: Propofol 10MG/Ml 1,000 MG/100 ML Bottle 9 MG CONT INF (07:53)
[2023-12-07] MEDS: Heparin Injection (Vial) 5,000 UNIT/ML VIAL 5000 UNIT SC ×2 (07:54→21:14)
[2023-12-07] MEDS: Chlorhexidine 15 ML PO (07:54)
--- NOTE | 2023-12-07 08:02 | PN.HOSP_ITS ---
Reason for Visit Reason for Visit: Diagnoses Sepsis, unspecified organism (11/29/23) Atherosclerotic heart disease of [place] coronary artery without angina pectoris (11/29/23) Chronic respiratory failure with hypoxia (11/29/23) Urinary tract infection, site not specified (11/29/23) Bradycardia, unspecified (11/29/23) Severe sepsis with septic shock (11/29/23) Subjective Subjective Patient remains on the vent. Did have a significant response to a trial of diuretic therapy. Per nursing staff patient is yet to have a bowel movement. Was given magnesium citrate without much resolved. Abdomen is tender on palpation with grimacing Objective Data Objective Data Vital Signs: Vital Signs Temp Pulse Resp BP Pulse Ox O2 Del Method O2 Flow Rate 99.4 F H 91 32 H 115/59 L 99 Mechanical Ventilator 40 12/07/23 06:00 12/07/23 07:11 12/07/23 07:11 12/07/23 07:45 12/07/23 07:11 12/07/23 07:00 12/04/23 08:00 FiO2 35 12/07/23 07:11 Oxygen Flow Rate (L/min) 40 Oxygen Delivery Method Mechanical Ventilator Weight: 100.3 kg Body Mass Index (BMI) 37.9 Intake & Output: Intake and Output for Last 24 Hours 12/05/23 12/06/23 12/08/23 23:59 23:59 00:59 Intake Total 3019.77 / 3083.64 3125.09 / 3151.29 681.15 / 681.15 Output Total 1455 / 1455 3850 / 3850 325 / 325 Balance 1564.77 / 1628.64 -724.91 / -698.71 356.15 / 356.15 Lab / Micro Data 12/07/23 03:25 12/07/23 03:25 Labs: Laboratory Results - last 24 hr 12/06/23 05:25: WBC 9.6, RBC 3.11 L, Hgb 9.4 L, Hct 31.2 L, MCV 100.3 H, MCH 30.2, MCHC 30.1 L, RDW Std Deviation 54.7 H, RDW Coeff of Sonya 15.1 H, Plt Count 288, MPV 11.1, Immature Gran % (Auto) 1.300 H, Neut % (Auto) 53.1, Lymph % (Auto) 27.2, [place] % (Auto) 7.3, Eos % (Auto) 10.5 H, Baso % (Auto) 0.6, Absolute Neuts (auto) 5.1, Absolute Lymphs (auto) 2.61, Nucleated RBC % 0, Sodium 139, Potassium 4.7, Chloride 103, Carbon Dioxide 37.0 H, Anion Gap -1 L, BUN 21 H, Creatinine 0.40 L, Estim Creat Clear Calc 73.55, Est GFR (MDRD) Af Amer 203, Est GFR (MDRD) Non-Af 168, BUN/Creatinine Ratio 52.9 H, Glucose 142 H, Calcium 8.8, Phosphorus 2.6, Magnesium 2.0 12/07/23 03:25: WBC 8.1, RBC 3.03 L, Hgb 9.4 L, Hct 30.7 L, MCV 101.3 H, MCH 31.0, MCHC 30.6 L, RDW Std Deviation 55.4 H, RDW Coeff of Sonya 15.0 H, Plt Count 284, MPV 10.5, Immature Gran % (Auto) 1.000 H, Neut % (Auto) 49.3, Lymph % (Auto) 30.5, [place] % (Auto) 8.8, Eos % (Auto) 10.0 H, Baso % (Auto) 0.4, Absolute Neuts (auto) 4.0, Absolute Lymphs (auto) 2.46, Nucleated RBC % 0, Sodium 139, P otassium 4.1, Chloride 99, Carbon Dioxide 37.0 H, Anion Gap 3 L, BUN 24 H, Creatinine 0.44 L, Estim Creat Clear Calc 73.55, Est GFR (MDRD) Af Amer 178, Est GFR (MDRD) Non-Af 147, BUN/Creatinine Ratio 53.9 H, Glucose 157 H, Calcium 8.8, Phosphorus 3.0, Magnesium 2.3 Micro: Microbiology 12/05/23 13:24 Sputum, Induced/Lukens Gram Stain - Final 12/05/23 13:24 Sputum, Induced/Lukens Respiratory Culture - Final Presumptive C albicans 12/05/23 13:25 Blood Culture (Wb) - Pic Blood Culture - Preliminary 12/05/23 13:24 Mucosa - Nose SARS-CoV-2, Influenza & RSV (PCR) - Final 11/29/23 12:28 Blood Culture (Wb) - Anticubital Right Blood Culture - Final No growth in 5 days. 11/29/23 11:54 Blood Culture (Wb) - Anticubital Right Blood Culture - Final No growth in 5 days. 12/02/23 08:21 Sputum, Induced/Lukens Gram Stain - Final 12/02/23 08:21 Sputum, Induced/Lukens Respiratory Culture - Final Presumptive C albicans 12/02/23 08:21 Mucosa - Nose SARS-CoV-2, Influenza & RSV (PCR) - Final 11/29/23 12:19 Urine, Clean Catch Urine Culture - Final Culture exhibits no growth. 11/29/23 12:19 Mucosa - Nasopharyngeal SARS-CoV-2, Influenza & RSV (PCR) - Final Rhythm Strip Rhythm Strip: Sinus Rhythm Rate: 70 Physical Exam Narrative GENERAL: Sedated on the vent HEENT: Atraumatic; normocephalic EYES; Anicteric, Normal Conjunctiva NECK; supple, normal thyroid, RESPIRATORY: Diminished to auscultation CARDIOVASCULAR: Regular S1 S2, GI: soft, normoactive bowel sounds, : No Renal angle tenderness; EXTREMITIES: edema, no clubbing, MUSCULOSKELETAL: no muscle wasting NEURO: Sedated on the vent SKIN: No Rash Assessment & Plan Assessment/Plan (1) Acute UTI: PLAN: Plan Patient is a 74-year-old lady who presented with nausea vomiting and generalized malaise. Patient was found to have acute cystitis with septic shock admitted to the intensive care unit for further management 1. Septic shock ? Secondary to acute cystitis patient has history of recent ESBL E. coli managed with aggressive IV fluid resuscitation, broad-spectrum antibiotic therapy with meropenem after cultures have been sent we will follow-up on result ? 12/03/2023 patient seen in consultation by Dr. Peñaloza with ID recommended continuation of current IV therapy with meropenem ? 12/04/2023; patient remains on broad-spectrum antibiotic therapy as well as Levophed ? 12/06/2023 patient remains on the vent. Has been weaned off Levophed drip ?12/07/2023; patient has been weaned off Levophed 2. Acute hypoxic respiratory failure -Chest x-ray obtained demonstrated diffuse interstitial airspace opacity consistent with edema and/or pneumonia bilateral small pleural effusion.. Case discussed with Dr. Williamson with critical care plan is for patient to be intubated if there is no rapid turnaround ? 12/03/2023; patient was intubated the day prior, given the rapidly deteriorating respiratory status. Remains on the vent Vent management deferred to critical care ? 12/04/2023;Patient seen remains on the vent, did fail her weaning trial this morning. She continues to have copious amount of secretions ? 12/05/2023;Patient remains on the vent and apparently did fail her weaning trial again this morning. ? 12/06/2023 plan is for patient to undergo weaning trial ? 12/07/2023 patient remains on the vent weaning trial as per telemetry ICU 3. Acute kidney injury ? Present on admission resolved with IV hydration 4. Hypomagnesemia -Corrected for protocol 5. Bradycardia ? Junctional patient was on metoprolol held seen in consultation by cardiology ? Patient was placed on Precedex to be discontinued given relative bradycardia 6. Hypokalemia -Corrected per protocol 7. Essential hypertension ? Antihypertensives held on admission due to relative hypotension 8. Dyslipidemia -Patient is on statin therapy, continued at home dose 9. Degenerative joint disease ? Pain meds as needed 10. Psoriatic arthritis ? Patient was previously on Humira which has been held for almost a month currently on prednisone this was changed to hydrocortisone 11. Coronary artery disease ? Patient is on guideline directed medical therapy did continue 12. DVT prophylaxis ? SC heparin 13. Anemia - Secondary to chronic disorder monitoring H&H and transfuse if patient becomes symptomatic or hemoglobin falls below 7 14. Fluid overload ? Patient responded to diuretic therapy 15. Constipation ? Bowel regimen initiated Time spent in the patient's overall evaluation,decision-making process, review of diagnostic data, adjustment of management, discussion with other providers, nursing nursing and ancillary staff involved in patient's care documentation, 52 Minutes Charges/Coding Visit Charges Inpatient E&M: 66831 [facility] Hosp L3
[2023-12-07] MEDS: Lactulose 20 GM/30 ML UDC PO (09:18)
[2023-12-07] MEDS: Furosemide 100 MG/10 ML Vial 60 MG IV (09:18)
[2023-12-07] MEDS: Pantoprazole Sodium 40 MG in 0.9% Normal Saline (100mL MB+) 100 ML 330 MG IV (09:19)
[2023-12-07] MEDS: Acetaminophen 650 MG/20 ML UDC GT ×2 (10:16→21:16)
--- NOTE | 2023-12-07 11:21 | PCM.PN.TICU ---
Objective Data Objective Data Vital Signs: Vital Signs Last response Temperature 38.2 C H 12/07/23 10:00 Temperature Source Core 12/07/23 10:00 Pulse Rate 117 H 12/07/23 11:00 Pulse Strength Normal (2+) 12/07/23 08:59 Respiratory Rate 26 H 12/07/23 11:00 Respiratory Effort Mechanically Ventilated 12/07/23 08:00 Respiratory Depth Normal 12/07/23 08:00 Respiratory Pattern Tachypnea 12/07/23 08:58 Blood Pressure 149/58 H 12/07/23 11:00 Blood Pressure Mean 88 12/07/23 11:00 Blood Pressure Source Monitor 12/07/23 07:00 Blood Pressure Position Semi-Fowlers 12/07/23 11:00 Blood Pressure Location Left Arm 12/07/23 11:00 Pulse Ox 97 12/07/23 11:00 Oxygen Delivery Method Mechanical Ventilator 12/07/23 11:00 Oxygen Flow Rate (L/min) 40 12/04/23 08:00 Fraction of Inspired Oxygen (FIO2) 35 12/07/23 11:00 I&O: I&O Last 24 Hours 12/06/23 12/06/23 12/07/23 11:59 23:59 12:59 Intake Total 1129.62 / 3151.29 1995.47 / 3151.29 1127.83 / 1127.83 Output Total 2450 / 3850 1400 / 3850 1325 / 1325 Balance -1320.38 / -698.71 595.47 / -698.71 -197.17 / -197.17 I&O: Total Stay 11/29/23 11:35 thru 12/07/23 11:00 Intake Total 83135.88 Output Total 05128 Balance 2635.88 Current Meds Ordered / Administered: Current meds ordered / Administered Generic Name Dose Route Start Last Admin Trade Name Freq PRN Reason Stop Dose Admin Acetaminophen 650 mg 12/02/23 08:31 12/07/23 10:16 Acetaminophen 650 Mg/20 Ml Udc GT 650 mg Q6H PRN PRN Administration FEVER Albuterol/Ipratropium 3 ml 11/29/23 16:48 12/07/23 07:11 Ipratropium/Albuterol Sulfate 3 Ml Ampul.Neb INHALATION 3 ml Q6H.RT RUTHIE Administration Aspirin 81 mg 11/30/23 08:00 12/07/23 07:53 Aspirin 81 Mg Tab.Chew PO 81 mg DAILY@0800 RUTHIE Administration Atorvastatin Calcium 40 mg 11/29/23 22:00 12/06/23 21:06 Atorvastatin Calcium 40 Mg Tablet PO 40 mg QHS RUTHIE Administration Budesonide 0.5 mg 11/30/23 10:30 12/07/23 07:11 Budesonide Respules 0.5 Mg/2 Ml Ampul.Neb. INHALATION 0.5 mg BID.RT RUTHIE Administration Chlorhexidine Gluconate 15 ml 12/02/23 10:00 12/07/23 07:54 Chlorhexidine 15 Ml PO 15 ml BID RUTHIE Administration Chlorhexidine Gluconate 1 each 12/03/23 10:00 12/07/23 08:47 Chlorhexidine Gluc 2% Cloth 1 Each [place] TOPICAL Not Given DAILY RUTHIE Clopidogrel Bisulfate 75 mg 11/30/23 10:00 12/07/23 07:53 Clopidogrel Bisulfate 75 Mg Tablet PO 75 mg DAILY RUTHIE Administration Heparin Sodium (Porcine) 5,000 unit 11/29/23 22:00 12/07/23 07:54 Heparin Injection (Vial) 5,000 Unit/Ml Vial SC 5,000 unit Q12 RUTHIE Administration Sodium Chloride 250 mls @ 15 mls/hr 11/29/23 17:07 12/07/23 05:21 IV 0 mls/hr .[id number] PRN Infusion Additional IVPB Infusion Sodium Chloride 250 mls @ 15 mls/hr 11/29/23 17:07 12/06/23 22:09 IV Infused .[id number] PRN Infusion Saline Flush Meropenem 1 gm/ Sodium 120 mls @ 33 mls/hr 11/30/23 07:30 12/07/23 09:01 Chloride IV Infused Q8 RUTHIE Infusion Propofol 1,000 mg in 100 mls @ 6.018 mls/hr 12/02/23 07:45 12/07/23 11:00 Diprivan CONT INF 0 mcg/kg/min .Q12H RUTHIE 0 mls/hr Titration Protocol 10 MCG/KG/MIN Fentanyl 100 mls @ 5 mls/hr 12/02/23 07:45 12/07/23 11:00 CONT INF 0 mcg/hr UD RUTHIE 0 mls/hr Titration Protocol 50 MCG/HR Pantoprazole Sodium 40 mg/ 110 mls @ 330 mls/hr 12/02/23 10:00 12/07/23 09:48 Sodium Chloride IV Infused Q24 RUTHIE Infusion Norepinephrine Bitartrate 8 mg 250 mls @ 9.375 mls/hr 12/03/23 02:25 12/07/23 11:00 / Sodium Chloride CONT INF 0 mcg/min .[id number] RUTHIE 0 mls/hr Titration Protocol 5 MCG/MIN Enteral Nutritional Formula 1,000 mls @ 60 mls/hr 12/03/23 09:35 12/07/23 08:00 Vital Af 1.2 [place] Liquid GT 0 mls/hr .[id number] RUTHIE Infusion Melatonin 10 mg 11/29/23 16:59 12/01/23 20:31 Melatonin 10 Mg Tablet PO 10 mg HS PRN Administration Sleep Ondansetron HCl 4 mg 11/29/23 16:48 Ondansetron 4 Mg/2 Ml Vial IV Q8H PRN PRN NAUSEA/VOMITING Oxymetazoline HCl 2 spray 11/29/23 16:48 11/30/23 21:34 Oxymetazoline 0.05% 1 [place] Sorrento.Btl NASAL 2 spray X1 PRN Administration NASAL CONGESTION Polyethylene Glycol 17 gm 11/30/23 10:00 12/07/23 07:53 Polyethylene Glycol 3350 17 Gm Packet PO 17 gm DAILY RUTHIE Administration Potassium Chloride 20 meq 12/04/23 10:00 12/07/23 07:53 Potassium Chloride Oral Soln 20 Meq/15 Ml Udc GT 20 meq BIDCM RUTHIE Administration Senna/Docusate Sodium 2 tablet 11/30/23 22:00 12/07/23 07:53 Senna/Docusate Sodium 1 Tablet PO 2 tablet BID RUTHIE Administration Sodium Chloride 10 - 40 ml 11/29/23 17:07 12/07/23 05:19 0.9% Saline Lock 10 Ml Syringe IV 20 ml UD PRN Administration SALINE FLUSH Tizanidine HCl 4 mg 11/29/23 22:00 12/06/23 21:06 Tizanidine Hcl 2 Mg Tablet PO 4 mg QHS RUTHIE Administration Lab / Micro Data 12/07/23 03:25 12/07/23 03:25 Labs: Laboratory Results - last 24 hr 12/07/23 03:25: WBC 8.1, RBC 3.03 L, Hgb 9.4 L, Hct 30.7 L, MCV 101.3 H, MCH 31.0, MCHC 30.6 L, RDW Std Deviation 55.4 H, RDW Coeff of Sonya 15.0 H, Plt Count 284, MPV 10.5, Immature Gran % (Auto) 1.000 H, Neut % (Auto) 49.3, Lymph % (Auto) 30.5, [place] % (Auto) 8.8, Eos % (Auto) 10.0 H, Baso % (Auto) 0.4, Absolute Neuts (auto) 4.0, Absolute Lymphs (auto) 2.46, Nucleated RBC % 0, Sodium 139, Potassium 4.1, Chloride 99, Carbon Dioxide 37.0 H, Anion Gap 3 L, BUN 24 H, Creatinine 0.44 L, Estim Creat Clear Calc 73.55, Est GFR (MDRD) Af Amer 178, Est GFR (MDRD) Non-Af 147, BUN/Creatinine Ratio 53.9 H, Glucose 157 H, Calcium 8.8, Phosphorus 3.0, Magnesium 2.3 Micro: Microbiology 12/05/23 13:25 Blood Culture (Wb) - Pic Blood Culture - Preliminary Staphylococcus species 12/05/23 13:24 Sputum, Induced/Lukens Gram Stain - Final 12/05/23 13:24 Sputum, Induced/Lukens Respiratory Culture - Final Presumptive C albicans Rhythm Strip Rhythm Strip: Sinus Rhythm Rate: 70 Assessment and Plan . Assessment and plan: Patient seen and examined Chart and data reviewed Tolerating SAT/SBT well MV 8-10 LPM w/ RR around 30 BPM PHYSICAL EXAM GEN NAD VS as above HEENT [place] NECK obese COR RRR CHEST coarse ABD soft EXT no edema SKIN w/d MELISSA NF RECOMMENDATIONS: 1. Extubate to O2 N/C 2. Continue antimicrobials per ID recommendations. 3. Continue bronchodilator therapy 4. Continue appropriate DVT and GI prophylaxis. IMPRESSIONS: 1. Acute on chronic hypoxemic respiratory failure The patient has a known history of severe restrictive ventilatory mechanics along with chronic hypoxemic respiratory failure with a baseline requirement of 2 L/min at rest and 4 L/min with exertion. The patient's pulmonary history is significant for any evolving interstitial lung process in the setting of known psoriatic arthritis on methotrexate and Humira. The patient was initially admitted with septic shock in the setting of ESBL E. coli UTI. She was volume resuscitated and developed hypervolemia. Her chest imaging demonstrated findings concerning for bilateral pulmonary edema superimposed upon a background of chronic interstitial changes. The patient was diuresed aggressively, but continued to decompensate from a respiratory perspective. Ultimately, she was intubated on the morning of December 01. Plan to continue current supportive measures including assist-control mode of mechanical ventilation. Antibiotics will be continued per ID recommendations. The patient will be continued on tube feeding as tolerated. Continue attempts at paired spontaneous awakening and breathing trials daily. Will continue ongoing attempts at intermittent diuresis as tolerated by hemodynamics and renal function. 2. Septic shock secondary to ESBL E. coli UTI Continue antimicrobials per ID recommendations. 3. History of interstitial lung disease/coronary artery disease/bradycardia/psoriatic arthritis Complicates care, management, recovery and prognosis. Continue home medications as indicated. Cardiology is following to assist with medical management. Critical Care Time: 50 min The entirety of this encounter was done via Telemedicine
[2023-12-07] MEDS: Bisacodyl 10 MG Suppository RC (13:34)
[2023-12-07] MEDS: Losartan Potassium 50 MG Tablet PO (15:19)
[2023-12-07] MEDS: Buprenorphine 15 MCG PATCH.TDWK 1 PATCH TD (15:32)
[2023-12-07] MEDS: Metoprolol Tartrate 25 MG Tablet 12.5 MG PO (16:52)
[2023-12-07] MEDS: Ondansetron 4 MG/2 ML Vial IV (17:06)
[2023-12-07] MEDS: Atorvastatin Calcium 40 MG Tablet PO (21:14)
[2023-12-07] MEDS: tiZANidine HCl 2 MG Tablet 4 MG PO (21:14)
[2023-12-07] MEDS: Cholecalciferol (VIT D3) 25 MCG TABLET (1,000 UNITS) PO (21:14)
[2023-12-07] MEDS: Menthol/Lanolin/Calamine/Znox 113 GM Tube 1 APPLIC TOPICAL (23:07)
--- NOTE | 2023-12-07 23:12 | PCM.HOSP.N ---
Hospitalist Note BP again dropping, unable to maintain appropriate MAP. Weaned off NEP earlier in the day, will now again restart it.
[2023-12-07] MEDS: Norepinephrine 8 MG in 0.9% Normal Saline (250mL Bag) 242 ML 9.40000000000000036 MG CONT INF (23:17)
[2023-12-08] VITALS (42 sets, daily range): BP systolic 79–135; BP diastolic 41–78; PULSE 70–102; RESP 15–23; TEMP 36.2–37.2; O2SAT 90–100; BMI 36.5
[2023-12-08] MEDS: Ipratropium/Albuterol Sulfate 3 ML AMPUL.NEB INHALATION ×4 (00:15→19:06)
[2023-12-08 03:47] LABS: Absolute Neutrophil Count 6.6 X10^3/uL (2.0-7.7); Basophil# 0.06 X10^3/uL; Basophil% 0.5 % (0-1); Eosinophil# 0.65 X10^3/uL; Eosinophils% 5.6 % (0-5); Hematocrit 31.9 % (37-47); Hemoglobin 9.7 g/dL (12.0-15.0); Lymphocyte % 27.5 % (19-41); Mean Corp Hgb Conc 30.4 g/dL (32-36); Mean Corpuscular Hgb 30.3 pg (27.0-32.0); Mean Corpuscular Volume 99.7 fL (81-99); Mean Platelet Vol. 10.4 fl (6.2-12.0); Monocyte# 1.06 X10^3/uL; Monocyte% 9.1 % (0-10); NRBC Flagged by Analyzer 0 % (0-5); Neutrophil # 6.58 X10^3/uL (2.7-7.7); Neutrophil % 56.4 % (47-70); Platelet Count 363 K/mm3 (150-450); RBC Distribution Width CV 15.2 % (11.6-14.6); RBC Distribution Width SD 54.6 fl (35.1-43.9); White Blood Count 11.7 K/mm3 (4.4-11.0)
[2023-12-08 04:04] LABS: Anion Gap 6 (5-15); BUN 25 mg/dL (7-18); BUN/Creat Ratio 39.9 RATIO (10-20); Chloride 100 mmol/L (98-107); Creatinine, Serum 0.63 mg/dL (0.55-1.02); EST Glomerular Filtration Rate 99 mL/min (>60); Est Glom Filt Rate - Afr Amer 120 mL/min (>60); Estimated Creatinine Clearance 71.71 ml/min; Glucose 121 mg/dL (74-106); Potassium 3.5 mmol/L (3.5-5.1); Sodium Level 140 mmol/L (136-145)
[2023-12-08] MEDS: Meropenem 1 GM in 0.9% Normal Saline (100mL MB+) 100 ML IV ×3 (06:25→21:05)
--- NOTE | 2023-12-08 07:10 | PCM.PN.INT ---
Assessment & Plan Assessment/Plan (1) Septic shock: (2) UTI due to extended-spectrum beta lactamase (ESBL) producing Escherichia coli: (3) Chronic hypoxemic respiratory failure: PLAN: Plan RECOMMENDATIONS: 1. Wean FiO2 to maintain saturations between 90% and 94%. 2. Continue antimicrobials per ID recommendations. 3. Continue attempts at intermittent diuresis, as tolerated by hemodynamics and renal function. 4. Obtain repeat blood cultures, procalcitonin 5. Wean Levophed as tolerated 6. Initiate empiric vancomycin 7. Continue appropriate DVT and GI prophylaxis. 8. Discontinue Zanaflex IMPRESSIONS: 1. Acute on chronic hypoxemic respiratory failure The patient has a known history of severe restrictive ventilatory mechanics along with chronic hypoxemic respiratory failure with a baseline requirement of 2 L/min at rest and 4 L/min with exertion. The patient's pulmonary history is significant for any evolving interstitial lung process in the setting of known psoriatic arthritis on methotrexate and Humira. Ultimately, patient intubated on the morning of December 01 and extubated on December 06. Wean oxygen as tolerated. Antibiotics will be continued per ID recommendations. The patient will be continued on tube feeding as tolerated. Will need walking oximetry prior to discharge. Will continue ongoing attempts at intermittent diuresis as tolerated by hemodynamics and renal function. 2. Septic shock secondary to ESBL E. coli UTI Continue antimicrobials per ID recommendations. Patient has appropriately been on meropenem. However, patient did have fever and increased pressor requirements over the last 24 hours. Patient did have staph growth from PICC line cultures. These will be repeated. Will initiate empiric vancomycin pending response. 3. History of interstitial lung disease/coronary artery disease/bradycardia/psoriatic arthritis Complicates care, management, recovery and prognosis. Continue home medications as indicated. Cardiology is following to assist with medical management. Patient appears to be having hypotension associated with Zanaflex. This will be discontinued. TIME: 34 minutes of critical care time, independent of procedures, was spent addressing the patient's acute on chronic hypoxemic respiratory failure, septic shock secondary to ESBL E. coli UTI, interstitial lung disease, review of all data and collaboration with care team. Subjective Subjective Patient extubated yesterday and has done okay from respiratory standpoint. Patient has required approximately 4 to 5 L/min of supplemental oxygen to maintain saturations. Patient did get Zanaflex overnight and is currently up to 15 on Levophed to maintain blood pressures. Patient did have a slight fever overnight. Patient reporting generalized body aches, but no pain at the PICC site. Objective Data Objective Data Vital Signs: Vital Signs Temp Pulse Resp BP Pulse Ox O2 Del Method O2 Flow Rate 36.8 C 88 20 H 117/51 L 96 Nasal Cannula 4 12/08/23 05:00 12/08/23 07:00 12/08/23 07:00 12/08/23 07:00 12/08/23 07:00 12/08/23 07:00 12/08/23 07:00 FiO2 40 12/08/23 04:00 Oxygen Flow Rate (L/min) 4 Oxygen Delivery Method Nasal Cannula Weight: 96.6 kg Body Mass Index (BMI) 36.5 Intake & Output: Intake and Output for Last 24 Hours 12/06/23 12/07/23 12/08/23 22:59 23:59 23:59 Intake Total 421.42 / 421.42 Output Total 400 / 400 Balance 21.42 / 21.42 Lab / Micro Data Attestation: I reviewed the patient's lab results. 12/08/23 03:14 12/08/23 03:14 Labs: Laboratory Results - last 24 hr 12/08/23 03:14: WBC 11.7 H, RBC 3.20 L, Hgb 9.7 L, Hct 31.9 L, MCV 99.7 H, MCH 30.3, MCHC 30.4 L, RDW Std Deviation 54.6 H, RDW Coeff of Sonya 15.2 H, Plt Count 363, MPV 10.4, Immature Gran % (Auto) 0.900, Neut % (Auto) 56.4, Lymph % (Auto) 27.5, [place] % (Auto) 9.1, Eos % (Auto) 5.6 H, Baso % (Auto) 0.5, Absolute Neuts (auto) 6.6, Absolute Lymphs (auto) 3.20, Nucleated RBC % 0, Sodium 140, Potassium 3.5, Chloride 100, Carbon Dioxide 34.0 H, Anion Gap 6, BUN 25 H, Creatinine 0.63, Estim Creat Clear Calc 71.71, Est GFR (MDRD) Af Amer 120, Est GFR (MDRD) Non-Af 99, BUN/Creatinine Ratio 39.9 H, Glucose 121 H, Calcium 9.0 Micro: Microbiology 12/05/23 13:30 Blood Culture (Wb) - Left Forearm Blood Culture - Preliminary No growth in 48 hours. 12/05/23 13:25 Blood Culture (Wb) - Pic Blood Culture - Preliminary Staphylococcus species 12/05/23 13:24 Sputum, Induced/Lukens Gram Stain - Final 12/05/23 13:24 Sputum, Induced/Lukens Respiratory Culture - Final Presumptive C albicans 12/05/23 13:24 Mucosa - Nose SARS-CoV-2, Influenza & RSV (PCR) - Final 11/29/23 12:28 Blood Culture (Wb) - Anticubital Right Blood Culture - Final No growth in 5 days. 11/29/23 11:54 Blood Culture (Wb) - Anticubital Right Blood Culture - Final No growth in 5 days. 12/02/23 08:21 Sputum, Induced/Lukens Gram Stain - Final 12/02/23 08:21 Sputum, Induced/Lukens Respiratory Culture - Final Presumptive C albicans 12/02/23 08:21 Mucosa - Nose SARS-CoV-2, Influenza & RSV (PCR) - Final 11/29/23 12:19 Urine, Clean Catch Urine Culture - Final Culture exhibits no growth. 11/29/23 12:19 Mucosa - Nasopharyngeal SARS-CoV-2, Influenza & RSV (PCR) - Final Rhythm Strip Rhythm Strip: Sinus Rhythm Rate: 71 Ectopy: - (Brief periods of A-fib with spontaneous resolution) Physical Exam Const alert and oriented x3 Constitutional Narrative: Appears older than stated age General Appearance: Negative for patient mechanically ventilated HEENT normocephalic and head/scalp atraumatic HEENT Narrative: Dry mucosa Eyes PERRL and EOMs intact bilaterally Neck supple General: trachea midline Chest inspection of chest normal Resp Auscultation: diminished lung sounds; Negative for rales, rhonchi or wheezes Cardio regular rate, regular rhythm, S1 normal heart sound, S2 normal heart sound, no murmurs, no rub and no gallops GI normal to inspection, nondistended, normoactive bowel sounds Extremity no clubbing, cyanosis or edema Extremity Narrative: PICC line does have mild bleeding at the insertion site, but no significant erythema appreciated. No pain on palpation. Skin no rashes or lesions noted Neuro oriented x3 and moves all extremities Neuro Narrative: Generalized weakness Psych Activity / Motor Behavior: restless Mood & Affect: anxious Charges/Coding Procedures Hospitalists Procedures: [id number] Critical Care 1st Hr
[2023-12-08] MEDS: Budesonide Respules 0.5 MG/2 ML AMPUL.NEB. INHALATION ×2 (07:26→19:07)
[2023-12-08] MEDS: Vancomycin HCl 2,000 MG in 0.9% Normal Saline (500mL Bag) 500 ML 250 MG IV (07:41)
[2023-12-08 08:00] LABS: Procalcitonin 0.21 ng/mL (0.00-0.09)
--- NOTE | 2023-12-08 08:07 | PCM.RX.CS ---
Consult Antibiotic Management Pharmacy has been consulted to manage selected antibiotic: Vancomycin Type of Intervention Type of Consult: New start Suspected Infection Suspected Infection: Sepsis Labs Labs: Sodium 140 mmol/L (136-145) 12/08/23 03:14 Potassium 3.5 mmol/L (3.5-5.1) 12/08/23 03:14 Chloride 100 mmol/L (98-107) 12/08/23 03:14 Carbon Dioxide 34.0 mmol/L (21.0-32.0) H 12/08/23 03:14 Anion Gap 6 (5-15) 12/08/23 03:14 BUN 25 mg/dL (7-18) H 12/08/23 03:14 Creatinine 0.63 mg/dL (0.55-1.02) 12/08/23 03:14 Est GFR (MDRD) Af Amer 120 mL/min (>60) 12/08/23 03:14 Est GFR (MDRD) Non-Af 99 mL/min (>60) 12/08/23 03:14 BUN/Creatinine Ratio 39.9 RATIO (10-20) H 12/08/23 03:14 Glucose 121 mg/dL (74-106) H 12/08/23 03:14 Vancomycin Trough 24.4 ug/mL (5.0-15.0) H 12/01/23 09:35 Microbiology Microbiology: Microbiology 12/05/23 13:25 Blood Culture (Wb) - Pic Blood Culture - Preliminary Staphylococcus epidermidis 12/05/23 13:30 Blood Culture (Wb) - Left Forearm Blood Culture - Preliminary No growth in 48 hours. 12/05/23 13:24 Sputum, Induced/Lukens Gram Stain - Final 12/05/23 13:24 Sputum, Induced/Lukens Respiratory Culture - Final Presumptive C albicans 12/05/23 13:24 Mucosa - Nose SARS-CoV-2, Influenza & RSV (PCR) - Final 11/29/23 12:28 Blood Culture (Wb) - Anticubital Right Blood Culture - Final No growth in 5 days. 11/29/23 11:54 Blood Culture (Wb) - Anticubital Right Blood Culture - Final No growth in 5 days. 12/02/23 08:21 Sputum, Induced/Lukens Gram Stain - Final 12/02/23 08:21 Sputum, Induced/Lukens Respiratory Culture - Final Presumptive C albicans 12/02/23 08:21 Mucosa - Nose SARS-CoV-2, Influenza & RSV (PCR) - Final 11/29/23 12:19 Urine, Clean Catch Urine Culture - Final Culture exhibits no growth. 11/29/23 12:19 Mucosa - Nasopharyngeal SARS-CoV-2, Influenza & RSV (PCR) - Final Goal Trough Goal Trough: 15-20 mcg/mL Pharmacy Plan for Drug Dosing Pharmacy Plan for Drug Dosing: NEW START IV VANCOMYCIN Consulting Physician: Dr. Staley Indication: Septic Shock Goal Trough: 15-20 SrCr: 0.63 CrCl: 72 mL/min Comments: Patient had 2g IV x1 dose ordered and admin 12/08/23 @0741 Vancomycin Dose: 1500mg IV Q12hr to start 12/08/23 @2000 Pending Level: 12/09/23 @1930, prior to 4th total dose per protocol Pharmacy Service will continue to monitor and adjust dosing as required.
[2023-12-08] MEDS: FLUCONAZOLE 150 MG TABLET PO (08:13)
[2023-12-08] MEDS: Aspirin 81 MG TAB.CHEW PO (08:16)
[2023-12-08] MEDS: Clopidogrel Bisulfate 75 MG Tablet PO (08:18)
[2023-12-08] MEDS: Folic Acid 1 MG Tablet PO (08:20)
[2023-12-08] MEDS: Cholecalciferol (VIT D3) 25 MCG TABLET (1,000 UNITS) PO ×2 (08:20→21:04)
[2023-12-08] MEDS: Norepinephrine 8 MG in 0.9% Normal Saline (250mL Bag) 242 ML 28.1000000000000014 MG CONT INF (08:27)
[2023-12-08] MEDS: Menthol/Lanolin/Calamine/Znox 113 GM Tube 1 APPLIC TOPICAL ×2 (08:28→21:02)
[2023-12-08] MEDS: HYDROcodone Bitartrate/Apap 5/325 Tablet PO ×2 (09:51→21:03)
[2023-12-08] MEDS: Heparin Injection (Vial) 5,000 UNIT/ML VIAL 5000 UNIT SC ×2 (10:03→21:03)
[2023-12-08] MEDS: CHLORHEXIDINE GLUC 2% CLOTH 1 EACH TOWELETTE TOPICAL (10:03)
[2023-12-08] MEDS: Potassium Chloride 20mEq/100mL 20 MEQ/100 ML IV.SOLN. 100 MEQ IV BOLUS ×2 (10:04→11:10)
[2023-12-08] MEDS: Pantoprazole Sodium 40 MG in 0.9% Normal Saline (100mL MB+) 100 ML 330 MG IV (10:06)
[2023-12-08] MEDS: 0.9% Normal Saline (250mL Bag) 250 ML 15 ML IV (10:07)
--- NOTE | 2023-12-08 15:28 | PCM.PN.ID ---
Physical Exam Narrative Off vent but still fever and requiring pressor. Const alert and no apparent distress Orientation / Consciousness: lethargic Resp Auscultation: diminished lung sounds Cardio regular rate and regular rhythm GI soft to palpation, non-tender and non-distended Skin no rashes or lesions noted ID ID: Route of nutrition/ use of supplements: [] Nutritional Intake: [] IV Site: [] Clinton Catheter: [] Assessment & Plan Assessment/Plan (1) Septic shock: PLAN: Ucx with ESBL ecoli and strep. Cont jeannie. Off vent now. Now with fever, hypotension; vanc added, cxs repeated Will follow (2) Urinary tract infection: QUALIFIERS: Urinary tract infection type: site unspecified Hematuria presence: without hematuria Qualified Code(s): N39.0 - Urinary tract infection, site not specified (3) Chronic hypoxemic respiratory failure:
--- NOTE | 2023-12-08 15:59 | CM.UR ---
Social Work SW met w/pt and son Drake in room in regard to discharge plan. Both in agreement that pt will need SNF at discharge. SW provided to son and pt a list from [facility] of Assisted facilities in network w/pt's insurance, in pt's preferred geographic area complete w/quality and resource use data to son. SW asked son to review the list and let SW know a few choices, SW explained we would send the referrals and then see who may have a bed, then will go to insurance for precert. Son states understanding. SW will continue to follow. TAM Vences
--- NOTE | 2023-12-08 16:04 | PN_ITS ---
Subjective Subjective Patient seen and examined. Speech therapy was working with the patient. She complained of feeling very weak and tired. She admits to a cough but denies any chest pain, palpitations, dizziness, nausea vomiting or any other symptoms. Review of systems otherwise negative. Objective Data Objective Data Vital Signs: Vital Signs Temp Pulse Resp BP Pulse Ox O2 Del Method O2 Flow Rate 98.7 F 94 19 H 113/47 L 93 Nasal Cannula 2 12/08/23 14:00 12/08/23 14:00 12/08/23 14:00 12/08/23 14:00 12/08/23 14:00 12/08/23 14:00 12/08/23 14:00 FiO2 40 12/08/23 04:00 Oxygen Flow Rate (L/min) 2 Oxygen Delivery Method Nasal Cannula Weight: 212 lb 15.465 oz Body Mass Index (BMI) 36.5 Intake & Output: Intake and Output for Last 24 Hours 12/06/23 12/07/23 12/08/23 22:59 23:59 23:59 Intake Total 1681.38 / 1681.38 Output Total 600 / 600 Balance 1081.38 / 1081.38 Lab / Micro Data 12/08/23 03:14 12/08/23 03:14 Labs: Laboratory Results - last 24 hr 12/08/23 03:14: WBC 11.7 H, RBC 3.20 L, Hgb 9.7 L, Hct 31.9 L, MCV 99.7 H, MCH 30.3, MCHC 30.4 L, RDW Std Deviation 54.6 H, RDW Coeff of Sonya 15.2 H, Plt Count 363, MPV 10.4, Immature Gran % (Auto) 0.900, Neut % (Auto) 56.4, Lymph % (Auto) 27.5, [place] % (Auto) 9.1, Eos % (Auto) 5.6 H, Baso % (Auto) 0.5, Absolute Neuts (auto) 6.6, Absolute Lymphs (auto) 3.20, Nucleated RBC % 0, Sodium 140, Potassium 3.5, Chloride 100, Carbon Dioxide 34.0 H, Anion Gap 6, BUN 25 H, Creatinine 0.63, Estim Creat Clear Calc 71.71, Est GFR (MDRD) Af Amer 120, Est GFR (MDRD) Non-Af 99, BUN/Creatinine Ratio 39.9 H, Glucose 121 H, Calcium 9.0 12/08/23 06:35: Procalcitonin 0.21 H Micro: Microbiology 12/05/23 13:25 Blood Culture (Wb) - Pic Blood Culture - Preliminary Staphylococcus epidermidis 12/05/23 13:30 Blood Culture (Wb) - Left Forearm Blood Culture - Preliminary No growth in 48 hours. 12/05/23 13:24 Sputum, Induced/Lukens Gram Stain - Final 12/05/23 13:24 Sputum, Induced/Lukens Respiratory Culture - Final Presumptive C albicans 12/05/23 13:24 Mucosa - Nose SARS-CoV-2, Influenza & RSV (PCR) - Final 11/29/23 12:28 Blood Culture (Wb) - Anticubital Right Blood Culture - Final No growth in 5 days. 11/29/23 11:54 Blood Culture (Wb) - Anticubital Right Blood Culture - Final No growth in 5 days. 12/02/23 08:21 Sputum, Induced/Lukens Gram Stain - Final 12/02/23 08:21 Sputum, Induced/Lukens Respiratory Culture - Final Presumptive C albicans 12/02/23 08:21 Mucosa - Nose SARS-CoV-2, Influenza & RSV (PCR) - Final 11/29/23 12:19 Urine, Clean Catch Urine Culture - Final Culture exhibits no growth. 11/29/23 12:19 Mucosa - Nasopharyngeal SARS-CoV-2, Influenza & RSV (PCR) - Final Rhythm Strip Rhythm Strip: Sinus Rhythm Rate: 71 Ectopy: - (Brief periods of A-fib with spontaneous resolution) Physical Exam Const alert, oriented x3 and no apparent distress Constitutional Narrative: frail HEENT normocephalic, head/scalp atraumatic and EAC's normal Neck no lymphadenopathy and supple Lymph Lymphatic: no lymphadenopathy noted and no lymphedema noted Resp Resp Narrative: mildly diminished breath sounds bibasally, no wheezes or crackles. On 2L of oxygen by nasal canula Cardio regular rate, regular rhythm, S1 normal heart sound, S2 normal heart sound and no murmurs GI normal to inspection, nondistended, normoactive bowel sounds, soft to palpation, non-tender and non-distended Extremity normal capillary refill, no clubbing, cyanosis or edema and no calf tenderness Skin General Skin Exam: no breakdown Neuro CN's II-XII intact bilaterally and no focal motor deficits Motor Exam: strength 5/5 throughout and general weakness Psych thought process normal and cooperative Appearance: appropriate Assessment & Plan Assessment/Plan (1) Septic shock: PLAN: Plan #Septic shock * Patient had to be put back on Levophed yesterday because of low blood pressure. * Septic shock thought to be due to UTI. She had had a history of recent ESBL E. coli. * On IV meropenem and vancomycin. ID on board. * Titrate Levophed to maintain MAP more than 65. * ID on board * #Acute hypoxic respiratory failure * Had to be intubated on admission. Now extubated. Currently on 2 L of oxygen. Titrate oxygen to maintain saturation above 90%. * Breathing treatments bronchodilators. Pulmonology on board. * #ELIZABETH: Resolved. #Bradycardia: Metoprolol held due to bradycardia which is now resolved. #Benign essential hypertension: BP meds held due to hypotension and septic shock. #Hyperlipidemia: On statin #Psoriatic arthritis: On hydrocortisone. Was previously on Humira. #CAD: On aspirin and statin as well as Plavix. #Anemia: Anemia of chronic disease. Transfuse if Hb is less than 7. DVT prophylaxis: heparin Charges/Coding Visit Charges Inpatient E&M: 15635 Subs Hosp L3
[2023-12-08] MEDS: Phenol/Sodium Phenolate 180ML 3 SPRAY MUCOUS MEM (16:24)
[2023-12-08] MEDS: Vancomycin HCl 1,500 MG in 0.9% Normal Saline (500mL Bag) 500 ML 250 MG IV (20:59)
[2023-12-08] MEDS: Atorvastatin Calcium 40 MG Tablet PO (21:03)
[2023-12-08] MEDS: 0.9% Saline Lock 10 ML Syringe IV (21:05)
[2023-12-09] VITALS (54 sets, daily range): BP systolic 86–128; BP diastolic 37–97; PULSE 81–109; RESP 12–22; TEMP 37–37.6; O2SAT 90–100; BMI 36.3
[2023-12-09] MEDS: MELATONIN 10 MG TABLET PO (00:23)
[2023-12-09] MEDS: Ipratropium/Albuterol Sulfate 3 ML AMPUL.NEB INHALATION ×4 (01:22→19:43)
[2023-12-09 03:30] LABS: Absolute Lymphocyte Count 1.55 X10^3/uL (0.83-4.51); Absolute Neutrophil Count 3.9 X10^3/uL (2.0-7.7); Basophil# 0.03 X10^3/uL; Basophil% 0.4 % (0-1); Eosinophil# 0.57 X10^3/uL; Eosinophils% 8.4 % (0-5); Lymphocyte # 1.55 X10^3/ul (0.83-4.51); Lymphocyte % 22.8 % (19-41); Mean Corpuscular Hgb 30.6 pg (27.0-32.0); Mean Platelet Vol. 9.8 fl (6.2-12.0); Monocyte# 0.75 X10^3/uL; NRBC Flagged by Analyzer 0 % (0-5); Neutrophil # 3.87 X10^3/uL (2.7-7.7); Platelet Count 283 K/mm3 (150-450); RBC Distribution Width CV 15.2 % (11.6-14.6); Red Blood Count 2.94 M/mm3 (4.2-5.4); White Blood Count 6.8 K/mm3 (4.4-11.0)
[2023-12-09 03:44] LABS: Anion Gap 4 (5-15); BUN 14 mg/dL (7-18); BUN/Creat Ratio 38.7 RATIO (10-20); Calcium,Total 8.6 mg/dL (8.5-10.1); Chloride 103 mmol/L (98-107); Creatinine, Serum 0.36 mg/dL (0.55-1.02); EST Glomerular Filtration Rate 187 mL/min (>60); Est Glom Filt Rate - Afr Amer 226 mL/min (>60); Estimated Creatinine Clearance 71.71 ml/min; Glucose 84 mg/dL (74-106); Potassium 3.9 mmol/L (3.5-5.1); Sodium Level 141 mmol/L (136-145)
[2023-12-09] MEDS: Meropenem 1 GM in 0.9% Normal Saline (100mL MB+) 100 ML IV ×3 (05:00→20:41)
[2023-12-09] MEDS: 0.9% Saline Lock 10 ML Syringe IV ×3 (05:00→11:59)
--- NOTE | 2023-12-09 07:20 | PCM.PN.INT ---
Assessment & Plan Assessment/Plan (1) Septic shock: (2) UTI due to extended-spectrum beta lactamase (ESBL) producing Escherichia coli: (3) Chronic hypoxemic respiratory failure: PLAN: Plan RECOMMENDATIONS: 1. Wean FiO2 to maintain saturations between 90% and 94%. 2. Continue antimicrobials per ID recommendations. 3. Continue attempts at intermittent diuresis, as tolerated by hemodynamics and renal function. 4. Await repeat blood cultures. Continue empiric vancomycin 5. Wean Levophed as tolerated 6. Possible stress dose steroids if remains on pressors through the day 7. Continue appropriate DVT and GI prophylaxis. IMPRESSIONS: 1. Acute on chronic hypoxemic respiratory failure The patient has a known history of severe restrictive ventilatory mechanics along with chronic hypoxemic respiratory failure with a baseline requirement of 2 L/min at rest and 4 L/min with exertion. The patient's pulmonary history is significant for any evolving interstitial lung process in the setting of known psoriatic arthritis on methotrexate and Humira. Ultimately, patient intubated on the morning of December 01 and extubated on December 06. Wean oxygen as tolerated. Antibiotics will be continued per ID recommendations. Patient has been cleared for regular diet. Will need walking oximetry prior to discharge. Will continue ongoing attempts at intermittent diuresis as tolerated by hemodynamics and renal function. 2. Septic shock secondary to ESBL E. coli UTI Continue antimicrobials per ID recommendations. Patient has appropriately been on meropenem. However, patient did have fever and increased pressor requirements following extubation. Patient did have staph growth from PICC line cultures. These have been repeated. Will continue empiric vancomycin pending response. 3. History of interstitial lung disease/coronary artery disease/bradycardia/psoriatic arthritis Complicates care, management, recovery and prognosis. Continue home medications as indicated. Cardiology is following to assist with medical management. Patient appears to be having hypotension associated with Zanaflex. This will be discontinued. TIME: 32 minutes of critical care time, independent of procedures, was spent addressing the patient's acute on chronic hypoxemic respiratory failure, septic shock secondary to ESBL E. coli UTI, interstitial lung disease, review of all data and collaboration with care team. Subjective Subjective Patient did okay overnight. Pressor requirements have improved significantly, but she is still requiring minimal pressors to maintain adequate blood pressures. Patient's oxygenation has been doing okay. Patient reports generalized aches. No bleeding has been reported. Objective Data Objective Data Vital Signs: Vital Signs Temp Pulse Resp BP Pulse Ox O2 Del Method O2 Flow Rate 37.1 C 100 13 104/55 L 97 Nasal Cannula 4 12/09/23 04:00 12/09/23 07:00 12/09/23 07:00 12/09/23 07:00 12/09/23 07:00 12/09/23 07:00 12/09/23 07:00 FiO2 40 12/08/23 04:00 Oxygen Flow Rate (L/min) 4 Oxygen Delivery Method Nasal Cannula Weight: 96.6 kg Body Mass Index (BMI) 36.3 Intake & Output: Intake and Output for Last 24 Hours 12/07/23 12/08/23 12/09/23 23:59 23:59 23:59 Intake Total 1885.98 / 1895.38 947.89 / 947.89 Output Total 1260 / 1790 805 / 805 Balance 625.98 / 105.38 142.89 / 142.89 Lab / Micro Data Attestation: I reviewed the patient's lab results. 12/09/23 03:20 12/09/23 03:20 Labs: Laboratory Results - last 24 hr 12/08/23 06:35: Procalcitonin 0.21 H 12/09/23 03:20: WBC 6.8, RBC 2.94 L, Hgb 9.0 L, Hct 30.0 L, MCV 102.0 H, MCH 30.6, MCHC 30.0 L, RDW Std Deviation 57.0 H, RDW Coeff of Sonya 15.2 H, Plt Count 283, MPV 9.8, Immature Gran % (Auto) 0.400, Neut % (Auto) 57.0, Lymph % (Auto) 22.8, [place] % (Auto) 11.0 H, Eos % (Auto) 8.4 H, Baso % (Auto) 0.4, Absolute Neuts (auto) 3.9, Absolute Lymphs (auto) 1.55, Nucleated RBC % 0, Sodium 141, Potassium 3.9, Chloride 103, Carbon Dioxide 34.0 H, Anion Gap 4 L, BUN 14, Creatinine 0.36 L, Estim Creat Clear Calc 71.71, Est GFR (MDRD) Af Amer 226, Est GFR (MDRD) Non-Af 187, BUN/Creatinine Ratio 38.7 H, Glucose 84, Calcium 8.6 Micro: Microbiology 12/05/23 13:25 Blood Culture (Wb) - Pic Blood Culture - Preliminary Staphylococcus epidermidis 12/05/23 13:30 Blood Culture (Wb) - Left Forearm Blood Culture - Preliminary No growth in 48 hours. 12/05/23 13:24 Sputum, Induced/Lukens Gram Stain - Final 12/05/23 13:24 Sputum, Induced/Lukens Respiratory Culture - Final Presumptive C albicans 12/05/23 13:24 Mucosa - Nose SARS-CoV-2, Influenza & RSV (PCR) - Final 11/29/23 12:28 Blood Culture (Wb) - Anticubital Right Blood Culture - Final No growth in 5 days. 11/29/23 11:54 Blood Culture (Wb) - Anticubital Right Blood Culture - Final No growth in 5 days. 12/02/23 08:21 Sputum, Induced/Lukens Gram Stain - Final 12/02/23 08:21 Sputum, Induced/Lukens Respiratory Culture - Final Presumptive C albicans 12/02/23 08:21 Mucosa - Nose SARS-CoV-2, Influenza & RSV (PCR) - Final 11/29/23 12:19 Urine, Clean Catch Urine Culture - Final Culture exhibits no growth. 11/29/23 12:19 Mucosa - Nasopharyngeal SARS-CoV-2, Influenza & RSV (PCR) - Final Rhythm Strip Rhythm Strip: Sinus Rhythm Rate: 98 Ectopy: - (Brief periods of A-fib with spontaneous resolution) Physical Exam Const alert, oriented x3 and no apparent distress Constitutional Narrative: Appears older than stated age. Resting comfortably on my arrival General Appearance: cooperative; Negative for patient mechanically ventilated HEENT normocephalic, head/scalp atraumatic and moist oral mucous membranes Eyes PERRL and EOMs intact bilaterally Neck supple General: trachea midline Chest inspection of chest normal Resp Effort and Inspection: Negative for actively coughing Auscultation: diminished lung sounds; Negative for rales, rhonchi or wheezes Cardio regular rate, regular rhythm, S1 normal heart sound, S2 normal heart sound, no murmurs, no rub and no gallops GI normal to inspection, nondistended, normoactive bowel sounds Extremity no clubbing, cyanosis or edema Extremity Narrative: PICC line does have mild bleeding at the insertion site, but no significant erythema appreciated. No pain on palpation. Skin no rashes or lesions noted Neuro oriented x3, CN's II-XII intact bilaterally, moves all extremities and no focal motor deficits Neuro Narrative: Generalized weakness Psych Activity / Motor Behavior: restless Mood & Affect: anxious Charges/Coding Procedures Hospitalists Procedures: [id number] Critical Care 1st Hr
[2023-12-09] MEDS: Budesonide Respules 0.5 MG/2 ML AMPUL.NEB. INHALATION ×2 (07:31→19:43)
[2023-12-09] MEDS: Vancomycin HCl 1,500 MG in 0.9% Normal Saline (500mL Bag) 500 ML 250 MG IV (08:32)
[2023-12-09] MEDS: Oxymetazoline 0.05% 1 SPRAY SPRAY.BTL 2 SPRAY NASAL (08:32)
[2023-12-09] MEDS: Calcium (Elemental) 500 MG Tablet 2000 MG PO (08:34)
[2023-12-09] MEDS: Folic Acid 1 MG Tablet PO (08:35)
[2023-12-09] MEDS: CHLORHEXIDINE GLUC 2% CLOTH 1 EACH TOWELETTE TOPICAL (08:35)
[2023-12-09] MEDS: Aspirin 81 MG TAB.CHEW PO (08:35)
[2023-12-09] MEDS: Menthol/Lanolin/Calamine/Znox 113 GM Tube 1 APPLIC TOPICAL ×2 (08:35→20:38)
[2023-12-09] MEDS: Clopidogrel Bisulfate 75 MG Tablet PO (08:35)
[2023-12-09] MEDS: Cholecalciferol (VIT D3) 25 MCG TABLET (1,000 UNITS) PO ×2 (08:36→20:38)
[2023-12-09] MEDS: Heparin Injection (Vial) 5,000 UNIT/ML VIAL 5000 UNIT SC ×2 (08:36→20:38)
[2023-12-09] MEDS: HYDROcodone Bitartrate/Apap 5/325 Tablet PO (09:00)
[2023-12-09] MEDS: Potassium Chloride 20mEq/100mL 20 MEQ/100 ML IV.SOLN. 100 MEQ IV BOLUS ×2 (09:00→10:01)
--- NOTE | 2023-12-09 10:14 | PCM.PROGNOTE ---
Subjective Subjective Patient seen and examined. She complained of generalised weakness. She denied any shortness of breath, cough, chest pain, palpitations, dizziness, nausea, vomiting or any other symptoms. She is on 4L of oxygen. She remains on levophed. Objective Data Objective Data Vital Signs: Vital Signs Temp Pulse Resp BP Pulse Ox O2 Del Method O2 Flow Rate 98.8 F 100 13 104/55 L 97 Nasal Cannula 4 12/09/23 04:00 12/09/23 07:00 12/09/23 07:00 12/09/23 07:00 12/09/23 07:00 12/09/23 07:00 12/09/23 07:00 FiO2 40 12/08/23 04:00 Oxygen Flow Rate (L/min) 4 Oxygen Delivery Method Nasal Cannula Weight: 212 lb 15.465 oz Body Mass Index (BMI) 36.3 Intake & Output: Intake and Output for Last 24 Hours 12/07/23 12/08/23 12/09/23 23:59 23:59 23:59 Intake Total 1885.98 / 1895.38 1167.89 / 1167.89 Output Total 1260 / 1790 805 / 805 Balance 625.98 / 105.38 362.89 / 362.89 Lab / Micro Data 12/09/23 03:20 12/09/23 03:20 Labs: Laboratory Results - last 24 hr 12/09/23 03:20: WBC 6.8, RBC 2.94 L, Hgb 9.0 L, Hct 30.0 L, MCV 102.0 H, MCH 30.6, MCHC 30.0 L, RDW Std Deviation 57.0 H, RDW Coeff of Sonya 15.2 H, Plt Count 283, MPV 9.8, Immature Gran % (Auto) 0.400, Neut % (Auto) 57.0, Lymph % (Auto) 22.8, [place] % (Auto) 11.0 H, Eos % (Auto) 8.4 H, Baso % (Auto) 0.4, Absolute Neuts (auto) 3.9, Absolute Lymphs (auto) 1.55, Nucleated RBC % 0, Sodium 141, Potassium 3.9, Chloride 103, Carbon Dioxide 34.0 H, Anion Gap 4 L, BUN 14, Creatinine 0.36 L, Estim Creat Clear Calc 71.71, Est GFR (MDRD) Af Amer 226, Est GFR (MDRD) Non-Af 187, BUN/Creatinine Ratio 38.7 H, Glucose 84, Calcium 8.6 Micro: Microbiology 12/05/23 13:25 Blood Culture (Wb) - Pic Blood Culture - Preliminary Staphylococcus epidermidis 12/05/23 13:30 Blood Culture (Wb) - Left Forearm Blood Culture - Preliminary No growth in 48 hours. 12/05/23 13:24 Sputum, Induced/Lukens Gram Stain - Final 12/05/23 13:24 Sputum, Induced/Lukens Respiratory Culture - Final Presumptive C albicans 12/05/23 13:24 Mucosa - Nose SARS-CoV-2, Influenza & RSV (PCR) - Final 11/29/23 12:28 Blood Culture (Wb) - Anticubital Right Blood Culture - Final No growth in 5 days. 11/29/23 11:54 Blood Culture (Wb) - Anticubital Right Blood Culture - Final No growth in 5 days. 12/02/23 08:21 Sputum, Induced/Lukens Gram Stain - Final 12/02/23 08:21 Sputum, Induced/Lukens Respiratory Culture - Final Presumptive C albicans 12/02/23 08:21 Mucosa - Nose SARS-CoV-2, Influenza & RSV (PCR) - Final 11/29/23 12:19 Urine, Clean Catch Urine Culture - Final Culture exhibits no growth. 11/29/23 12:19 Mucosa - Nasopharyngeal SARS-CoV-2, Influenza & RSV (PCR) - Final Rhythm Strip Rhythm Strip: Sinus Rhythm Rate: 98 Ectopy: - (Brief periods of A-fib with spontaneous resolution) Physical Exam Const alert and oriented x3 Constitutional Narrative: frail HEENT normocephalic, head/scalp atraumatic, EAC's normal and moist oral mucous membranes Eyes PERRL and EOMs intact bilaterally Neck no lymphadenopathy and supple Lymph Lymphatic: no lymphadenopathy noted and no lymphedema noted Resp normal respiratory effort, no retractions, no use of accessory muscles and clear to auscultation bilaterally Resp Narrative: mildly diminished breath sounds bibasally, no wheezes or crackles. Now on 4 L of oxygen by nasal canula Cardio regular rate, regular rhythm, S1 normal heart sound, S2 normal heart sound and no murmurs GI normal to inspection, nondistended, normoactive bowel sounds, soft to palpation, non-tender and non-distended Extremity normal capillary refill, no clubbing, cyanosis or edema and no calf tenderness Extremity Narrative: Nonpitting edema left upper extremity. Skin General Skin Exam: no breakdown Neuro CN's II-XII intact bilaterally and no focal motor deficits Motor Exam: strength 5/5 throughout and general weakness Psych thought process normal and cooperative Activity / Motor Behavior: restless Assessment & Plan Assessment/Plan (1) Septic shock: PLAN: Plan #Septic shock Patient had to be put back on Levophed because of low blood pressure. Septic shock thought to be due to UTI. She had had a history of recent ESBL E. coli. On IV meropenem and vancomycin. ID on board. Titrate Levophed to maintain MAP more than 65. ID on board #Acute hypoxic respiratory failure Had to be intubated on admission. Now extubated. Now on 4 L of oxygen. Titrate oxygen to maintain saturation above 90%. Breathing treatments bronchodilators. Pulmonology on board. #ELIZABETH: Resolved. #Bradycardia: Metoprolol held due to bradycardia which is now resolved. #Benign essential hypertension: BP meds held due to hypotension and septic shock. #Hyperlipidemia: On statin #Psoriatic arthritis: On hydrocortisone. Was previously on Humira. #CAD: On aspirin and statin as well as Plavix. #Anemia: Anemia of chronic disease. Transfuse if Hb is less than 7. Hb today is 7. DVT prophylaxis: heparin Charges/Coding Visit Charges Inpatient E&M: 97440 Subs Hosp L3
--- NOTE | 2023-12-09 10:21 | PCM.PN.ID ---
Physical Exam Narrative Feeling better, pressor was stopped this AM, no fever Const alert and no apparent distress General Appearance: cooperative Resp normal air movement and clear to auscultation bilaterally Cardio regular rate and regular rhythm GI soft to palpation, non-tender and non-distended Skin no rashes or lesions noted ID ID: Route of nutrition/ use of supplements: [] Nutritional Intake: [] IV Site: [] Clinton Catheter: [] Assessment & Plan Assessment/Plan (1) Septic shock: PLAN: Ucx with ESBL ecoli and strep. Cont vanc/jeannie. Off vent now. No further fever, BP improved Will follow (2) Urinary tract infection: QUALIFIERS: Urinary tract infection type: site unspecified Hematuria presence: without hematuria Qualified Code(s): N39.0 - Urinary tract infection, site not specified (3) Chronic hypoxemic respiratory failure:
[2023-12-09] MEDS: Pantoprazole Sodium 40 MG in 0.9% Normal Saline (100mL MB+) 100 ML 330 MG IV (11:16)
--- NOTE | 2023-12-09 11:39 | CASEMGMT ---
Social Work SW met w/pt again in regard to SNF choices. She would like a referral to TCU. If TCU cannot take pt, she may be agreeable to [facility], has been there before. Pt does NOT want to go to [facility] or [facility]. SW will make referral when appropriate. TAM Vences
[2023-12-09] MEDS: Ondansetron 4 MG/2 ML Vial IV (11:59)
[2023-12-09 20:15] LABS: Vancomycin, Trough Level 24.8 ug/mL (5.0-15.0)
--- NOTE | 2023-12-09 20:33 | PCM.RX.CS ---
Consult Antibiotic Management Pharmacy has been consulted to manage selected antibiotic: Vancomycin Type of Intervention Type of Consult: Follow-up Suspected Infection Suspected Infection: Sepsis Prior Doses of Antibiotics Prior Doses of Antibiotics Received/Current Regimen: current dose is vanc 1500mg IV q12h Labs Labs: Sodium 141 mmol/L (136-145) 12/09/23 03:20 Potassium 3.9 mmol/L (3.5-5.1) 12/09/23 03:20 Chloride 103 mmol/L (98-107) 12/09/23 03:20 Carbon Dioxide 34.0 mmol/L (21.0-32.0) H 12/09/23 03:20 Anion Gap 4 (5-15) L 12/09/23 03:20 BUN 14 mg/dL (7-18) 12/09/23 03:20 Creatinine 0.36 mg/dL (0.55-1.02) L 12/09/23 03:20 Est GFR (MDRD) Af Amer 226 mL/min (>60) 12/09/23 03:20 Est GFR (MDRD) Non-Af 187 mL/min (>60) 12/09/23 03:20 BUN/Creatinine Ratio 38.7 RATIO (10-20) H 12/09/23 03:20 Glucose 84 mg/dL (74-106) 12/09/23 03:20 Vancomycin Trough 24.8 ug/mL (5.0-15.0) H 12/09/23 19:30 Microbiology Microbiology: Microbiology 12/05/23 13:25 Blood Culture (Wb) - Pic Blood Culture - Preliminary Staphylococcus epidermidis 12/05/23 13:30 Blood Culture (Wb) - Left Forearm Blood Culture - Preliminary No growth in 48 hours. 12/05/23 13:24 Sputum, Induced/Lukens Gram Stain - Final 12/05/23 13:24 Sputum, Induced/Lukens Respiratory Culture - Final Presumptive C albicans 12/05/23 13:24 Mucosa - Nose SARS-CoV-2, Influenza & RSV (PCR) - Final 11/29/23 12:28 Blood Culture (Wb) - Anticubital Right Blood Culture - Final No growth in 5 days. 11/29/23 11:54 Blood Culture (Wb) - Anticubital Right Blood Culture - Final No growth in 5 days. 12/02/23 08:21 Sputum, Induced/Lukens Gram Stain - Final 12/02/23 08:21 Sputum, Induced/Lukens Respiratory Culture - Final Presumptive C albicans 12/02/23 08:21 Mucosa - Nose SARS-CoV-2, Influenza & RSV (PCR) - Final 11/29/23 12:19 Urine, Clean Catch Urine Culture - Final Culture exhibits no growth. 11/29/23 12:19 Mucosa - Nasopharyngeal SARS-CoV-2, Influenza & RSV (PCR) - Final Dosing Weight Weight used for dosin.6 kg Estimated Creatinine Clearance Estimated Creatinine Clearance: 72 ml/min Goal Trough Goal Trough: 15-20 mcg/mL Pharmacy Plan for Drug Dosing Pharmacy Plan for Drug Dosing: The vanc trough drawn at 19:30 tonight was 24.8. This is above goal range so will discontinue the current dose and hold further dosing at this time. Will order a random level to be drawn tomorrow in approximately 18 hours from the current trough. That level will determine if dosing can be resumed at that time. Pharmacy Service will continue to monitor and adjust dosing as required. Follow-Up Labs Follow-Up Labs: Trough: Vancomycin (random) Date/Time Labs Ordered Labs to be done on [date and time ordered]: 12/10/23 13:30
[2023-12-09] MEDS: Atorvastatin Calcium 40 MG Tablet PO (20:38)
[2023-12-09] MEDS: 0.9% Normal Saline (250mL Bag) 250 ML 15 ML IV (20:42)
[2023-12-10] VITALS (20 sets, daily range): BP systolic 100–151; BP diastolic 45–79; PULSE 80–109; RESP 15–25; TEMP 36.4–37.3; O2SAT 90–100; BMI 36.4
[2023-12-10] MEDS: Ipratropium/Albuterol Sulfate 3 ML AMPUL.NEB INHALATION ×3 (01:41→19:15)
[2023-12-10] MEDS: Meropenem 1 GM in 0.9% Normal Saline (100mL MB+) 100 ML IV ×3 (05:04→20:06)
[2023-12-10 06:01] LABS: Anion Gap 2 (5-15); BUN 10 mg/dL (7-18); BUN/Creat Ratio 26.7 RATIO (10-20); Calcium,Total 8.8 mg/dL (8.5-10.1); Chloride 102 mmol/L (98-107); Creatinine, Serum 0.37 mg/dL (0.55-1.02); EST Glomerular Filtration Rate 180 mL/min (>60); Est Glom Filt Rate - Afr Amer 218 mL/min (>60); Estimated Creatinine Clearance 71.63 ml/min; Glucose 82 mg/dL (74-106); Potassium 3.9 mmol/L (3.5-5.1); Sodium Level 141 mmol/L (136-145)
[2023-12-10 07:03] LABS: Absolute Lymphocyte Count 1.71 X10^3/uL (0.83-4.51); Absolute Neutrophil Count 2.3 X10^3/uL (2.0-7.7); Basophil# 0.04 X10^3/uL; Basophil% 0.7 % (0-1); Eosinophil# 0.57 X10^3/uL; Eosinophils% 10.5 % (0-5); Hematocrit 29.1 % (37-47); Hemoglobin 8.8 g/dL (12.0-15.0); Lymphocyte # 1.71 X10^3/ul (0.83-4.51); Lymphocyte % 31.6 % (19-41); Mean Corp Hgb Conc 30.2 g/dL (32-36); Mean Corpuscular Hgb 30.8 pg (27.0-32.0); Mean Corpuscular Volume 101.7 fL (81-99); Mean Platelet Vol. 10.6 fl (6.2-12.0); Monocyte# 0.76 X10^3/uL; NRBC Flagged by Analyzer 0 % (0-5); Neutrophil # 2.31 X10^3/uL (2.7-7.7); Neutrophil % 42.8 % (47-70); Platelet Count 283 K/mm3 (150-450); RBC Distribution Width CV 15.1 % (11.6-14.6); RBC Distribution Width SD 56.4 fl (35.1-43.9); Red Blood Count 2.86 M/mm3 (4.2-5.4); White Blood Count 5.4 K/mm3 (4.4-11.0)
--- NOTE | 2023-12-10 07:06 | PCM.PN.INT ---
Assessment & Plan Assessment/Plan (1) Septic shock: (2) UTI due to extended-spectrum beta lactamase (ESBL) producing Escherichia coli: (3) Chronic hypoxemic respiratory failure: PLAN: Plan RECOMMENDATIONS: 1. Wean FiO2 to maintain saturations between 90% and 94%. 2. Continue antimicrobials per ID recommendations. 3. Potentially attempt diuretics tomorrow 4. Await repeat blood culture results. Continue empiric vancomycin 5. Okay to leave the intensive care unit from my perspective 6. Continue aggressive therapies 7. Continue appropriate DVT and GI prophylaxis. IMPRESSIONS: 1. Acute on chronic hypoxemic respiratory failure The patient has a known history of severe restrictive ventilatory mechanics along with chronic hypoxemic respiratory failure with a baseline requirement of 2 L/min at rest and 4 L/min with exertion. The patient's pulmonary history is significant for any evolving interstitial lung process in the setting of known psoriatic arthritis on methotrexate and Humira. Ultimately, patient intubated on the morning of December 01 and extubated on December 06. Wean oxygen as tolerated to avoid CO2 retention. Antibiotics will be continued per ID recommendations. Patient has been cleared for regular diet. Will need walking oximetry prior to discharge. Will continue ongoing attempts at intermittent diuresis as tolerated by hemodynamics and renal function. Okay to leave the intensive care unit from my perspective 2. Septic shock secondary to ESBL E. coli UTI Continue antimicrobials per ID recommendations. Patient has appropriately been on meropenem. However, patient did have fever and increased pressor requirements following extubation. Patient did have staph growth from PICC line cultures x 1, but repeat cultures are negative growth to date despite being drawn before initiation of vancomycin. Defer to ID on discontinuation of meropenem and vancomycin. Will continue empiric vancomycin pending response. 3. History of interstitial lung disease/coronary artery disease/bradycardia/psoriatic arthritis Complicates care, management, recovery and prognosis. Continue home medications as indicated. Cardiology is following to assist with medical management. Patient appears to be having hypotension associated with Zanaflex, so this was discontinued. Subjective Subjective Patient did well overnight. Patient has been off of pressors since 10 AM yesterday and tolerating well. Patient has not had any issues from a respiratory perspective. Patient is still reporting generalized pain, responsive to current pain regimen. Objective Data Objective Data Vital Signs: Vital Signs Temp Pulse Resp BP Pulse Ox O2 Del Method O2 Flow Rate 37.0 C 86 19 H 121/51 H 99 Nasal Cannula 4 12/10/23 07:00 12/10/23 07:00 12/10/23 07:00 12/10/23 07:00 12/10/23 07:00 12/10/23 07:00 12/10/23 07:00 FiO2 40 12/08/23 04:00 Oxygen Flow Rate (L/min) 4 Oxygen Delivery Method Nasal Cannula Weight: 96.4 kg Body Mass Index (BMI) 36.4 Intake & Output: Intake and Output for Last 24 Hours 12/08/23 12/09/23 12/10/23 23:59 23:59 23:59 Intake Total 1885.98 / 1895.38 2908.98 / 2908.98 190.75 / 190.75 Output Total 1260 / 1790 2105 / 2105 650 / 650 Balance 625.98 / 105.38 803.98 / 803.98 -459.25 / -459.25 Lab / Micro Data Attestation: I reviewed the patient's lab results. 12/10/23 05:00 12/10/23 05:00 Labs: Laboratory Results - last 24 hr 12/09/23 19:30: Vancomycin Trough 24.8 H 12/10/23 05:00: WBC 5.4, RBC 2.86 L, Hgb 8.8 L, Hct 29.1 L, MCV 101.7 H, MCH 30.8, MCHC 30.2 L, RDW Std Deviation 56.4 H, RDW Coeff of Sonya 15.1 H, Plt Count 283, MPV 10.6, Immature Gran % (Auto) 0.400, Neut % (Auto) 42.8 L, Lymph % (Auto) 31.6, [place] % (Auto) 14.0 H, Eos % (Auto) 10.5 H, Baso % (Auto) 0.7, Absolute Neuts (auto) 2.3, Absolute Lymphs (auto) 1.71, Nucleated RBC % 0, Sodium 141, Potassium 3.9, Chloride 102, Carbon Dioxide 37.0 H, Anion Gap 2 L, BUN 10, Creatinine 0.37 L, Estim Creat Clear Calc 71.63, Est GFR (MDRD) Af Amer 218, Est GFR (MDRD) Non-Af 180, BUN/Creatinine Ratio 26.7 H, Glucose 82, Calcium 8.8 Micro: Microbiology 03/08/24 13:25 Blood Culture (Wb) - Pic Blood Culture - Preliminary Staphylococcus epidermidis 12/05/23 13:30 Blood Culture (Wb) - Left Forearm Blood Culture - Preliminary No growth in 48 hours. 12/05/23 13:24 Sputum, Induced/Lukens Gram Stain - Final 12/05/23 13:24 Sputum, Induced/Lukens Respiratory Culture - Final Presumptive C albicans 12/05/23 13:24 Mucosa - Nose SARS-CoV-2, Influenza & RSV (PCR) - Final 11/29/23 12:28 Blood Culture (Wb) - Anticubital Right Blood Culture - Final No growth in 5 days. 11/29/23 11:54 Blood Culture (Wb) - Anticubital Right Blood Culture - Final No growth in 5 days. 12/02/23 08:21 Sputum, Induced/Lukens Gram Stain - Final 12/02/23 08:21 Sputum, Induced/Lukens Respiratory Culture - Final Presumptive C albicans 12/02/23 08:21 Mucosa - Nose SARS-CoV-2, Influenza & RSV (PCR) - Final 11/29/23 12:19 Urine, Clean Catch Urine Culture - Final Culture exhibits no growth. 11/29/23 12:19 Mucosa - Nasopharyngeal SARS-CoV-2, Influenza & RSV (PCR) - Final Rhythm Strip Rhythm Strip: Sinus Rhythm Rate: 83 Ectopy: - Physical Exam Const alert, oriented x3 and no apparent distress Constitutional Narrative: Appears older than stated age. Resting comfortably on my arrival. Appears to be in a better mood today General Appearance: cooperative; Negative for patient mechanically ventilated HEENT normocephalic, head/scalp atraumatic and moist oral mucous membranes Eyes PERRL and EOMs intact bilaterally Neck supple General: trachea midline Chest inspection of chest normal Resp Effort and Inspection: Negative for actively coughing Auscultation: diminished lung sounds; Negative for rales, rhonchi or wheezes Cardio regular rate, regular rhythm, S1 normal heart sound, S2 normal heart sound, no murmurs, no rub and no gallops GI normal to inspection, nondistended, normoactive bowel sounds Extremity no clubbing, cyanosis or edema Extremity Narrative: PICC line does have mild bleeding at the insertion site, but no significant erythema appreciated. No pain on palpation. Skin no rashes or lesions noted Neuro oriented x3, CN's II-XII intact bilaterally, moves all extremities and no focal motor deficits Neuro Narrative: Generalized weakness Psych cooperative Charges/Coding Visit Charges Inpatient E&M: 49047 Subs Hosp L3
[2023-12-10] MEDS: CHLORHEXIDINE GLUC 2% CLOTH 1 EACH TOWELETTE TOPICAL (07:43)
[2023-12-10] MEDS: Aspirin 81 MG TAB.CHEW PO (07:54)
[2023-12-10] MEDS: Heparin Injection (Vial) 5,000 UNIT/ML VIAL 5000 UNIT SC ×2 (07:55→20:07)
[2023-12-10] MEDS: Menthol/Lanolin/Calamine/Znox 113 GM Tube 1 APPLIC TOPICAL ×2 (07:55→20:07)
[2023-12-10] MEDS: Folic Acid 1 MG Tablet PO (07:55)
[2023-12-10] MEDS: Clopidogrel Bisulfate 75 MG Tablet PO (07:55)
[2023-12-10] MEDS: Cholecalciferol (VIT D3) 25 MCG TABLET (1,000 UNITS) PO ×2 (07:55→20:07)
[2023-12-10] MEDS: Budesonide Respules 0.5 MG/2 ML AMPUL.NEB. INHALATION ×2 (08:01→19:15)
[2023-12-10] MEDS: Senna/Docusate Sodium 1 Tablet 2 TABLET PO (08:15)
[2023-12-10] MEDS: HYDROcodone Bitartrate/Apap 5/325 Tablet PO ×2 (08:16→20:06)
[2023-12-10] MEDS: Pantoprazole Sodium 40 MG in 0.9% Normal Saline (100mL MB+) 100 ML 330 MG IV (08:55)
[2023-12-10] MEDS: Potassium Chloride 20mEq/100mL 20 MEQ/100 ML IV.SOLN. 100 MEQ IV BOLUS ×2 (09:22→10:25)
--- NOTE | 2023-12-10 09:58 | PN_ITS ---
Subjective Subjective Patient seen and examined. She says she felt much better today as she had no active complaints. She denies any chest pain or palpitations, dizziness, nausea or vomiting difficulty breathing not improved. She is now off of Levophed. Objective Data Objective Data Vital Signs: Vital Signs Temp Pulse Resp BP Pulse Ox O2 Del Method O2 Flow Rate 98.4 F 109 H 22 H 131/70 H 94 Nasal Cannula 3 12/10/23 08:00 12/10/23 09:00 12/10/23 09:00 12/10/23 09:00 12/10/23 09:00 12/10/23 09:00 12/10/23 09:00 FiO2 40 12/08/23 04:00 Oxygen Flow Rate (L/min) 3 Oxygen Delivery Method Nasal Cannula Weight: 212 lb 8.41 oz Body Mass Index (BMI) 36.4 Intake & Output: Intake and Output for Last 24 Hours 12/08/23 12/09/23 12/10/23 23:59 23:59 23:59 Intake Total 1885.98 / 1895.38 2908.98 / 2908.98 420.75 / 420.75 Output Total 1260 / 1790 2105 / 2105 650 / 650 Balance 625.98 / 105.38 803.98 / 803.98 -229.25 / -229.25 Lab / Micro Data 12/10/23 05:00 12/10/23 05:00 Labs: Laboratory Results - last 24 hr 12/09/23 19:30: Vancomycin Trough 24.8 H 12/10/23 05:00: WBC 5.4, RBC 2.86 L, Hgb 8.8 L, Hct 29.1 L, MCV 101.7 H, MCH 30.8, MCHC 30.2 L, RDW Std Deviation 56.4 H, RDW Coeff of Sonya 15.1 H, Plt Count 283, MPV 10.6, Immature Gran % (Auto) 0.400, Neut % (Auto) 42.8 L, Lymph % (Auto ) 31.6, [place] % (Auto) 14.0 H, Eos % (Auto) 10.5 H, Baso % (Auto) 0.7, Absolute Neuts (auto) 2.3, Absolute Lymphs (auto) 1.71, Nucleated RBC % 0, Sodium 141, Potassium 3.9, Chloride 102, Carbon Dioxide 37.0 H, Anion Gap 2 L, BUN 10, Creatinine 0.37 L, Estim Creat Clear Calc 71.63, Est GFR (MDRD) Af Amer 218, Est GFR (MDRD) Non-Af 180, BUN/Creatinine Ratio 26.7 H, Glucose 82, Calcium 8.8 Micro: Microbiology 12/05/23 13:25 Blood Culture (Wb) - Pic Blood Culture - Final Staphylococcus epidermidis 12/05/23 13:30 Blood Culture (Wb) - Left Forearm Blood Culture - Preliminary No growth in 48 hours. 12/05/23 13:24 Sputum, Induced/Lukens Gram Stain - Final 12/05/23 13:24 Sputum, Induced/Lukens Respiratory Culture - Final Presumptive C albicans 12/05/23 13:24 Mucosa - Nose SARS-CoV-2, Influenza & RSV (PCR) - Final 11/29/23 12:28 Blood Culture (Wb) - Anticubital Right Blood Culture - Final No growth in 5 days. 11/29/23 11:54 Blood Culture (Wb) - Anticubital Right Blood Culture - Final No growth in 5 days. 12/02/23 08:21 Sputum, Induced/Lukens Gram Stain - Final 12/02/23 08:21 Sputum, Induced/Lukens Respiratory Culture - Final Presumptive C albicans 12/02/23 08:21 Mucosa - Nose SARS-CoV-2, Influenza & RSV (PCR) - Final 11/29/23 12:19 Urine, Clean Catch Urine Culture - Final Culture exhibits no growth. 11/29/23 12:19 Mucosa - Nasopharyngeal SARS-CoV-2, Influenza & RSV (PCR) - Final Rhythm Strip Rhythm Strip: Sinus Rhythm Rate: 83 Ectopy: - Physical Exam Const alert, oriented x3 and no apparent distress Constitutional Narrative: frail HEENT normocephalic, head/scalp atraumatic, EAC's normal and moist oral mucous membranes Eyes PERRL and EOMs intact bilaterally Neck no lymphadenopathy and supple Lymph Lymphatic: no lymphadenopathy noted and no lymphedema noted Resp normal respiratory effort, no retractions, no use of accessory muscles and clear to auscultation bilaterally Resp Narrative: mildly diminished breath sounds bibasally, no wheezes or crackles. Now on 3L of oxygen by nasal canula Cardio regular rhythm, S1 normal heart sound, S2 normal heart sound and no murmurs Cardio Narrative: mildly tachycardic. GI normal to inspection, nondistended, normoactive bowel sounds, soft to palpation, non-tender and non-distended Extremity normal capillary refill, no clubbing, cyanosis or edema and no calf tenderness Skin General Skin Exam: no breakdown Neuro CN's II-XII intact bilaterally and no focal motor deficits Motor Exam: strength 5/5 throughout and general weakness Psych thought process normal and cooperative Appearance: appropriate Activity / Motor Behavior: restless Assessment & Plan Assessment/Plan (1) Septic shock: PLAN: Plan #Septic shock * weaned off levophed yesterday. Feels much better * Septic shock thought to be due to UTI. She had had a history of recent ESBL E. coli. * On IV meropenem and vancomycin. ID on board. * ID on board * #Acute hypoxic respiratory failure * Had to be intubated on admission. Now extubated. Now on 3L of oxygen today. * Titrate oxygen to maintain saturation above 90%. * Breathing treatments bronchodilators. Pulmonology on board. * #ELIZABETH: Resolved. #Bradycardia: Metoprolol held due to bradycardia which is now resolved. #Benign essential hypertension: BP meds held due to hypotension and septic shock. #Hyperlipidemia: On statin #Psoriatic arthritis: On hydrocortisone. Was previously on Humira. #CAD: On aspirin and statin as well as Plavix. #Anemia: Anemia of chronic disease. Transfuse if Hb is less than 7. Hb today is 8.8 DVT prophylaxis: heparin Disposition: Transfer out of ICU to PCU today. Charges/Coding Visit Charges Inpatient E&M: 50838 Subs Hosp L2
[2023-12-10] MEDS: 0.9% Saline Lock 10 ML Syringe IV (13:12)
--- NOTE | 2023-12-10 13:34 | CHAPLAIN ---
Type of Pastoral Visit ___ Initial Visit _x__ Follow-up Visit ___ On-call Visit ___ General Patient Visit ___ Spiritual Assessment ___ Family Conference ___ Bereavement ___ Rapid Response ___ Code Blue ___ Other (describe below) Pastoral Care Referral From _x__ Patient ___ Family ___ Nurse ___ Physician ___ Import Export Clerk ___ Spooling Operator ___ Other (describe below) Sacrament/Intervention _x__ Active listening ___ Anointing ___ Buddhism ___ Bereavement ___ Communion _x__ Saritha exploration ___ _x__ Life review _x__ Prayer ___ Reconciliation ___ Sacrament of Sick _x__ Supportive presence ___ Wedding ___ Other (describe below) Pastoral Comments patient is alert and able to converse well; previously pt was unable to respond due to intubation; pt speaks of no recall about being sedated and intubated; pt has open conversation about her thoughts and feelings on 'end of life issues'; pt wants to talk with her children about her wishes and believes now is the time; pt has spiritual thoughts about dying and 'what happens next' and declares to be at peace with , although not wanting to have pain and suffering; pt states this experience is bringing back memories of her mother's passing and how that was handled; pt admits that she misses her mother and has unconsciously longed to have mom come to me ; pt seeks reassurance that her thoughts on end of life are not 'crazy' and is given that comfort and assurance; pt directs her thoughts to her beliefs about God and the after life; pt welcomes prayer and expresses her deep appreciation for 'having this discussion with me';
[2023-12-10 14:16] LABS: Vancomycin, Random Level 13.4 ug/mL (0.0-15.0)
--- NOTE | 2023-12-10 15:38 | PCM.RX.CS ---
Consult Antibiotic Management Pharmacy has been consulted to manage selected antibiotic: Vancomycin Type of Intervention Type of Consult: Follow-up Suspected Infection Suspected Infection: Sepsis Prior Doses of Antibiotics Prior Doses of Antibiotics Received/Current Regimen: Most recently on 1500mg iv q12h. Labs Labs: Sodium 141 mmol/L (136-145) 12/10/23 05:00 Potassium 3.9 mmol/L (3.5-5.1) 12/10/23 05:00 Chloride 102 mmol/L (98-107) 12/10/23 05:00 Carbon Dioxide 37.0 mmol/L (21.0-32.0) H 12/10/23 05:00 Anion Gap 2 (5-15) L 12/10/23 05:00 BUN 10 mg/dL (7-18) 12/10/23 05:00 Creatinine 0.37 mg/dL (0.55-1.02) L 12/10/23 05:00 Est GFR (MDRD) Af Amer 218 mL/min (>60) 12/10/23 05:00 Est GFR (MDRD) Non-Af 180 mL/min (>60) 12/10/23 05:00 BUN/Creatinine Ratio 26.7 RATIO (10-20) H 12/10/23 05:00 Glucose 82 mg/dL (74-106) 12/10/23 05:00 Vancomycin Trough 24.8 ug/mL (5.0-15.0) H 12/09/23 19:30 Random Vancomycin 13.4 ug/mL (0.0-15.0) 12/10/23 13:15 Microbiology Microbiology: Microbiology 12/05/23 13:25 Blood Culture (Wb) - Pic Blood Culture - Final Staphylococcus epidermidis 12/05/23 13:30 Blood Culture (Wb) - Left Forearm Blood Culture - Final No growth in 5 days. 12/08/23 06:35 Blood Culture (Wb) - No Site/Description Given Blood Culture - Preliminary No growth in 48 hours. 12/08/23 06:30 Blood Culture (Wb) - No Site/Description Given Blood Culture - Preliminary No growth in 48 hours. 12/05/23 13:24 Sputum, Induced/Lukens Gram Stain - Final 12/05/23 13:24 Sputum, Induced/Lukens Respiratory Culture - Final Presumptive C albicans 12/05/23 13:24 Mucosa - Nose SARS-CoV-2, Influenza & RSV (PCR) - Final 11/29/23 12:28 Blood Culture (Wb) - Anticubital Right Blood Culture - Final No growth in 5 days. 11/29/23 11:54 Blood Culture (Wb) - Anticubital Right Blood Culture - Final No growth in 5 days. 12/02/23 08:21 Sputum, Induced/Lukens Gram Stain - Final 12/02/23 08:21 Sputum, Induced/Lukens Respiratory Culture - Final Presumptive C albicans 12/02/23 08:21 Mucosa - Nose SARS-CoV-2, Influenza & RSV (PCR) - Final 11/29/23 12:19 Urine, Clean Catch Urine Culture - Final Culture exhibits no growth. 11/29/23 12:19 Mucosa - Nasopharyngeal SARS-CoV-2, Influenza & RSV (PCR) - Final Dosing Weight Weight used for dosin.6 kg Estimated Creatinine Clearance Estimated Creatinine Clearance: 72ml/min Goal Trough Goal Trough: 15-20 mcg/mL Pharmacy Plan for Drug Dosing Pharmacy Plan for Drug Dosing: Trough previously 24.8 and dosing held. Today's random level 13.4 ~28.5hrs post last dose. Recommend re-starting at a reduced dose of 1250mg iv q12h and get a new trough level before the 4th dose per policy. Pharmacy Service will continue to monitor and adjust dosing as required. Follow-Up Labs Follow-Up Labs: Trough: Vancomycin (3.15.24 @0330)
--- NOTE | 2023-12-10 15:45 | CASEMGMT ---
Social Work Referral made to TCU. SW will await determination of acceptance. SANDIE Paige
[2023-12-10] MEDS: Vancomycin HCl 1,250 MG in 0.9% Normal Saline (250mL Bag) 250 ML 167 MG IV (16:50)
[2023-12-10] MEDS: Phenol/Sodium Phenolate 180ML 3 SPRAY MUCOUS MEM (18:52)
[2023-12-10] MEDS: Oxymetazoline 0.05% 1 SPRAY SPRAY.BTL 2 SPRAY NASAL (20:07)
[2023-12-10] MEDS: Atorvastatin Calcium 40 MG Tablet PO (20:07)
[2023-12-11] VITALS (9 sets, daily range): BP systolic 132–142; BP diastolic 53–68; PULSE 86–104; RESP 15–21; TEMP 36.3–36.8; O2SAT 95–98; BMI 35.9
[2023-12-11] MEDS: Ipratropium/Albuterol Sulfate 3 ML AMPUL.NEB INHALATION ×4 (01:43→19:50)
[2023-12-11 03:38] LABS: Basophil# 0.04 X10^3/uL; Basophil% 0.6 % (0-1); Eosinophil# 0.64 X10^3/uL; Eosinophils% 9.3 % (0-5); Hematocrit 30.2 % (37-47); Lymphocyte % 33.4 % (19-41); Mean Corp Hgb Conc 29.8 g/dL (32-36); Mean Corpuscular Volume 100.7 fL (81-99); Mean Platelet Vol. 10.1 fl (6.2-12.0); Monocyte# 0.89 X10^3/uL; Monocyte% 12.9 % (0-10); NRBC Flagged by Analyzer 0 % (0-5); Neutrophil % 43.5 % (47-70); Platelet Count 297 K/mm3 (150-450); RBC Distribution Width CV 15.1 % (11.6-14.6); RBC Distribution Width SD 54.5 fl (35.1-43.9); White Blood Count 6.9 K/mm3 (4.4-11.0)
[2023-12-11] MEDS: Vancomycin HCl 1,250 MG in 0.9% Normal Saline (250mL Bag) 250 ML 167 MG IV ×2 (03:51→15:11)
[2023-12-11 03:52] LABS: Anion Gap 4 (5-15); BUN 10 mg/dL (7-18); BUN/Creat Ratio 23.5 RATIO (10-20); Chloride 101 mmol/L (98-107); Creatinine, Serum 0.42 mg/dL (0.55-1.02); EST Glomerular Filtration Rate 155 mL/min (>60); Est Glom Filt Rate - Afr Amer 188 mL/min (>60); Estimated Creatinine Clearance 71.11 ml/min; Glucose 97 mg/dL (74-106); Sodium Level 141 mmol/L (136-145)
[2023-12-11] MEDS: Meropenem 1 GM in 0.9% Normal Saline (100mL MB+) 100 ML IV (05:45)
--- NOTE | 2023-12-11 06:37 | PN.CC_ITS ---
Assessment & Plan Assessment/Plan (1) Septic shock: (2) UTI due to extended-spectrum beta lactamase (ESBL) producing Escherichia coli: (3) Chronic hypoxemic respiratory failure: PLAN: Plan RECOMMENDATIONS: 1. Wean FiO2 to maintain saturations between 90% and 94%. 2. Continue antimicrobials per ID recommendations. 3. P likely okay to reinitiate baseline diuretic therapy 4. Repeat blood cultures are negative. Defer to ID on discontinuation of antibiotics 5. Hemodynamically stable on baseline nasal cannula oxygen. Will sign off from a pulmonary/critical care perspective IMPRESSIONS: 1. 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 The patient's pulmonary history is significant for any evolving interstitial lung process in the setting of known psoriatic arthritis on methotrexate and Humira. Ultimately, patient intubated on the morning of December 01 and extubated on December 06. Wean oxygen as tolerated to avoid CO2 retention. Antibiotics will be continued per ID recommendations. Patient has been tolerating a regular diet. Will need walking oximetry prior to discharge. Will continue ongoing attempts at intermittent diuresis as tolerated by hemodynamics and renal function. Patient currently hemodynamically stable on baseline nasal cannula oxygen. Will sign off from a pulmonary/critical care perspective. Patient can likely be reinitiated on baseline diuretics 2. Septic shock secondary to ESBL E. coli UTI Resolved. Continue antimicrobials per ID recommendations. Patient has appropriately been on meropenem. However, patient did have fever and increased pressor requirements following extubation. Patient did have staph growth from PICC line cultures x 1, but repeat cultures are negative growth to date despite being drawn before initiation of vancomycin. Defer to ID on discontinuation of meropenem and vancomycin. Okay to discontinue antibiotics from my perspective 3. History of interstitial lung disease/coronary artery disease/julieta ycardia/psoriatic arthritis Complicates care, management, recovery and prognosis. Continue home medications as indicated. Cardiology is following to assist with medical management. Patient appears to be having hypotension associated with Zanaflex, so this was discontinued. Subjective Subjective Patient did well overnight. No acute issues were reported. Patient did require a lift assist to get to the chair yesterday, but did spend more time out of bed. Patient has been weaned to 2 L nasal cannula, but continues to report a baseline of 3 to 4 L prior to hospitalization. Patient's appetite is improving. Objective Data Objective Data Vital Signs: Vital Signs Temp Pulse Resp BP Pulse Ox O2 Del Method O2 Flow Rate 36.4 C L 96 20 H 134/60 H 98 Nasal Cannula 2 12/11/23 02:00 12/11/23 02:00 12/11/23 02:00 12/11/23 02:00 12/11/23 02:00 12/11/23 02:00 12/11/23 02:00 FiO2 40 12/08/23 04:00 Oxygen Flow Rate (L/min) 2 Oxygen Delivery Method Nasal Cannula Weight: 95.1 kg Body Mass Index (BMI) 35.9 Intake & Output: Intake and Output for Last 24 Hours 12/09/23 12/10/23 12/11/23 23:59 23:59 23:59 Intake Total 2908.98 / 2908.98 1435.75 / 1435.75 395 / 395 Output Total 2105 / 2105 2425 / 2425 Balance 803.98 / 803.98 -989.25 / -989.25 395 / 395 Lab / Micro Data Attestation: I reviewed the patient's lab results. 12/11/23 03:30 12/11/23 03:30 Labs: Laboratory Results - last 24 hr 12/10/23 05:00: WBC 5.4, RBC 2.86 L, Hgb 8.8 L, Hct 29.1 L, MCV 101.7 H, MCH 30.8, MCHC 30.2 L, RDW Std Deviation 56.4 H, RDW Coeff of Sonya 15.1 H, Plt Count 283, MPV 10.6, Immature Gran % (Auto) 0.400, Neut % (Auto) 42.8 L, Lymph % (Auto) 31.6, [place] % (Auto) 14.0 H, Eos % (Auto) 10.5 H, Baso % (Auto) 0.7, Absolute Neuts (auto) 2.3, Absolute Lymphs (auto) 1.71, Nucleated RBC % 0 12/10/23 13:15: Random Vancomycin 13.4 12/11/23 03:30: WBC 6.9, RBC 3.00 L, Hgb 9.0 L, Hct 30.2 L, MCV 100.7 H, MCH 30. 0, MCHC 29.8 L, RDW Std Deviation 54.5 H, RDW Coeff of Sonya 15.1 H, Plt Count 297, MPV 10.1, Immature Gran % (Auto) 0.300, Neut % (Auto) 43.5 L, Lymph % (Auto) 33.4, [place] % (Auto) 12.9 H, Eos % (Auto) 9.3 H, Baso % (Auto) 0.6, Absolute Neuts (auto) 3.0, Absolute Lymphs (auto) 2.30, Nucleated RBC % 0, Sodium 141, Potassium 4.0, Chloride 101, Carbon Dioxide 36.0 H, Anion Gap 4 L, BUN 10, Creatinine 0.42 L, Estim Creat Clear Calc 71.11, Est GFR (MDRD) Af Amer 188, Est GFR (MDRD) Non-Af 155, BUN/Creatinine Ratio 23.5 H, Glucose 97, Calcium 9.0 Micro: Microbiology 12/05/23 13:25 Blood Culture (Wb) - Pic Blood Culture - Final Staphylococcus epidermidis 12/05/23 13:30 Blood Culture (Wb) - Left Forearm Blood Culture - Final No growth in 5 days. 12/08/23 06:35 Blood Culture (Wb) - No Site/Description Given Blood Culture - Preliminary No growth in 48 hours. 12/08/23 06:30 Blood Culture (Wb) - No Site/Description Given Blood Culture - Preliminary No growth in 48 hours. 12/05/23 13:24 Sputum, Induced/Lukens Gram Stain - Final 12/05/23 13:24 Sputum, Induced/Lukens Respiratory Culture - Final Presumptive C albicans 12/05/23 13:24 Mucosa - Nose SARS-CoV-2, Influenza & RSV (PCR) - Final 11/29/23 12:28 Blood Culture (Wb) - Anticubital Right Blood Culture - Final No growth in 5 days. 11/29/23 11:54 Blood Culture (Wb) - Anticubital Right Blood Culture - Final No growth in 5 days. 12/02/23 08:21 Sputum, Induced/Lukens Gram Stain - Final 12/02/23 08:21 Sputum, Induced/Lukens Respiratory Culture - Final Presumptive C albicans 12/02/23 08:21 Mucosa - Nose SARS-CoV-2, Influenza & RSV (PCR) - Final 11/29/23 12:19 Urine, Clean Catch Urine Culture - Final Culture exhibits no growth. 11/29/23 12:19 Mucosa - Nasopharyngeal SARS-CoV-2, Influenza & RSV (PCR) - Final Rhythm Strip Rhythm Strip: Sinus Rhythm Rate: 96 Ectopy: - Physical Exam Const alert, oriented x3 and no apparent distress Constitutional Narrative: Appears older than stated age. Resting comfortably on my arrival. Appears to be in a better mood today General Appearance: cooperative; Negative for patient mechanically ventilated HEENT normocephalic, head/scalp atraumatic and moist oral mucous membranes Eyes PERRL and EOMs intact bilaterally Neck supple General: trachea midline Chest inspection of chest normal Resp Effort and Inspection: Negative for actively coughing Auscultation: diminished lung sounds; Negative for rales, rhonchi or wheezes Cardio regular rate, regular rhythm, S1 normal heart sound, S2 normal heart sound, no murmurs, no rub and no gallops GI normal to inspection, nondistended, normoactive bowel sounds Extremity no clubbing, cyanosis or edema Extremity Narrative: PICC line does have mild bleeding at the insertion site, but no significant erythema appreciated. No pain on palpation. Skin no rashes or lesions noted Neuro oriented x3, CN's II-XII intact bilaterally, moves all extremities and no focal motor deficits Neuro Narrative: Generalized weakness Psych cooperative Charges/Coding Visit Charges Inpatient E&M: 45755 Subs Hosp L2
[2023-12-11] MEDS: Budesonide Respules 0.5 MG/2 ML AMPUL.NEB. INHALATION ×2 (07:10→19:50)
[2023-12-11] MEDS: CHLORHEXIDINE GLUC 2% CLOTH 1 EACH TOWELETTE TOPICAL (08:37)
[2023-12-11] MEDS: Clopidogrel Bisulfate 75 MG Tablet PO (08:37)
[2023-12-11] MEDS: Aspirin 81 MG TAB.CHEW PO (08:37)
[2023-12-11] MEDS: Menthol/Lanolin/Calamine/Znox 113 GM Tube 1 APPLIC TOPICAL ×2 (08:37→20:36)
[2023-12-11] MEDS: Folic Acid 1 MG Tablet PO (08:37)
[2023-12-11] MEDS: Cholecalciferol (VIT D3) 25 MCG TABLET (1,000 UNITS) PO ×2 (08:37→20:36)
[2023-12-11] MEDS: Heparin Injection (Vial) 5,000 UNIT/ML VIAL 5000 UNIT SC ×2 (08:37→20:36)
[2023-12-11] MEDS: HYDROcodone Bitartrate/Apap 5/325 Tablet PO ×2 (08:38→20:35)
--- NOTE | 2023-12-11 09:32 | CASEMGMT ---
Social Work SW met with pt and introduced self and role of SW. Referral had been made to TCU per pt and son request. Pt stating that after consideration, she does not want to go TCU and would prefer [facility]. SW requested to call pt's son to discuss with him as he preferred TCU. Pt declines stating she does not want TCU and will notify her son of her decision when he visits later today. DC parking assistant updated and referral to be sent to [facility]. Lola in TCU updated. Plan: [facility], pending acceptance and SANDIE Núñez
--- NOTE | 2023-12-11 09:35 | PN_ITS ---
Subjective Subjective Patient seen and examined. She was eating breakfast. she complained of pain in her left wrist. She is unable to flex and extend her wrist. her breathing has improved. Review of systems is otherwise negative. She is on 3-4L of oxygen and has remained off pressors. Objective Data Objective Data Vital Signs: Vital Signs Temp Pulse Resp BP Pulse Ox O2 Del Method O2 Flow Rate 98.2 F 94 18 134/68 H 95 Nasal Cannula 3 12/11/23 08:00 12/11/23 08:00 12/11/23 08:00 12/11/23 08:00 12/11/23 08:00 12/11/23 08:00 12/11/23 08:00 FiO2 40 12/08/23 04:00 Oxygen Flow Rate (L/min) 3 Oxygen Delivery Method Nasal Cannula Weight: 209 lb 10.554 oz Body Mass Index (BMI) 35.9 Intake & Output: Intake and Output for Last 24 Hours 12/09/23 12/10/23 12/11/23 23:59 23:59 23:59 Intake Total 2908.98 / 2908.98 1435.75 / 1435.75 395 / 395 Output Total 2105 / 2105 2425 / 2425 Balance 803.98 / 803.98 -989.25 / -989.25 395 / 395 Lab / Micro Data 12/11/23 03:30 12/11/23 03:30 Labs: Laboratory Results - last 24 hr 12/10/23 13:15: Random Vancomycin 13.4 12/11/23 03:30: WBC 6.9, RBC 3.00 L, Hgb 9.0 L, Hct 30.2 L, MCV 100.7 H, MCH 30.0, MCHC 29.8 L, RDW Std Deviation 54.5 H, RDW Coeff of Sonya 15.1 H, Plt Count 297, MPV 10.1, Immature Gran % (Auto) 0.300, Neut % (Auto) 43.5 L, Lymph % (Auto) 33.4, Appling % (Auto) 12.9 H, Eos % (Auto) 9.3 H, Baso % (Auto) 0.6, Absol ely Neuts (auto) 3.0, Absolute Lymphs (auto) 2.30, Nucleated RBC % 0, Sodium 141, Potassium 4.0, Chloride 101, Carbon Dioxide 36.0 H, Anion Gap 4 L, BUN 10, Creatinine 0.42 L, Estim Creat Clear Calc 71.11, Est GFR (MDRD) Af Amer 188, Est GFR (MDRD) Non-Af 155, BUN/Creatinine Ratio 23.5 H, Glucose 97, Calcium 9.0 Micro: Microbiology 12/05/23 13:25 Blood Culture (Wb) - Pic Blood Culture - Final Staphylococcus epidermidis 12/05/23 13:30 Blood Culture (Wb) - Left Forearm Blood Culture - Final No growth in 5 days. 12/08/23 06:35 Blood Culture (Wb) - No Site/Description Given Blood Culture - Preliminary No growth in 48 hours. 12/08/23 06:30 Blood Culture (Wb) - No Site/Description Given Blood Culture - Preliminary No growth in 48 hours. 12/05/23 13:24 Sputum, Induced/Lukens Gram Stain - Final 12/05/23 13:24 Sputum, Induced/Lukens Respiratory Culture - Final Presumptive C albicans 12/05/23 13:24 Mucosa - Nose SARS-CoV-2, Influenza & RSV (PCR) - Final 11/29/23 12:28 Blood Culture (Wb) - Anticubital Right Blood Culture - Final No growth in 5 days. 11/29/23 11:54 Blood Culture (Wb) - Anticubital Right Blood Culture - Final No growth in 5 days. 12/02/23 08:21 Sputum, Induced/Lukens Gram Stain - Final 12/02/23 08:21 Sputum, Induced/Lukens Respiratory Culture - Final Presumptive C albicans 12/02/23 08:21 Mucosa - Nose SARS-CoV-2, Influenza & RSV (PCR) - Final 11/29/23 12:19 Urine, Clean Catch Urine Culture - Final Culture exhibits no growth. 11/29/23 12:19 Mucosa - Nasopharyngeal SARS-CoV-2, Influenza & RSV (PCR) - Final Rhythm Strip Rhythm Strip: Sinus Rhythm Rate: 96 Ectopy: - Physical Exam Const alert, oriented x3 and no apparent distress Constitutional Narrative: frail HEENT normocephalic, head/scalp atraumatic, EAC's normal and moist oral mucous membranes Eyes PERRL and EOMs intact bilaterally Neck no lymphadenopathy and supple Lymph Lymphatic: no lymphadenopathy noted and no lymphedema noted Resp normal respiratory effort, no retractions, no use of accessory muscles and clear to auscultation bilaterally Resp Narrative: mildly diminished breath sounds bibasally, no wheezes or crackles. Now on 3L of oxygen by nasal canula Cardio regular rate, regular rhythm, S1 normal heart sound, S2 normal heart sound and no murmurs GI normal to inspection, nondistended, normoactive bowel sounds, soft to palpation, non-tender and non-distended Extremity normal capillary refill, no clubbing, cyanosis or edema and no calf tenderness Extremity Narrative: tenderness on palpation of left wrist, has tenderness with flexion and extension of wrist. No erythema or visible swelling. Skin General Skin Exam: no breakdown Neuro CN's II-XII intact bilaterally and no focal motor deficits Motor Exam: strength 5/5 throughout and general weakness Psych thought process normal and cooperative Appearance: appropriate Assessment & Plan Assessment/Plan (1) Septic shock: PLAN: Plan #Septic shock * remains off. Feels much better * Septic shock thought to be due to UTI. She had had a history of recent ESBL E. coli. * On IV meropenem and vancomycin. ID on board. * ID on board * #Acute hypoxic respiratory failure * Had to be intubated on admission. Now extubated. Remains on 3L of oxygen. * Titrate oxygen to maintain saturation above 90%. * Breathing treatments bronchodilators. Pulmonology on board. * #Left wrist pain * unable to flex and extend left wrist without pain * will get xray of the left wrist * PO tylenol. * PT/OT consult * #ELIZABETH: Resolved. #Bradycardia: Metoprolol held due to bradycardia which has now resolved. #Benign essential hypertension: BP meds held due to hypotension and septic shock. #Hyperlipidemia: On statin #Psoriatic arthritis: On hydrocortisone. Was previously on Humira. #CAD: On aspirin and statin as well as Plavix. #Anemia: Anemia of chronic disease. Transfuse if Hb is less than 7. Hb today is 9. DVT prophylaxis: heparin Disposition: will benefit from placement Charges/Coding Visit Charges Inpatient E&M: 70360 Subs Hosp L2
--- NOTE | 2023-12-11 09:42 | CASEMGMT ---
Addendum entered by Tomasa Johns 12/11/23 10:25: Requested that precert be submitted. Tomasa Johns, Discharge Planning Asst. Addendum entered by Tomasa Johns 12/11/23 10:13: [facility] accepted referral. SW updated. Tomasa Johns, Discharge Planning Asst. Original Note: Discharge Planning Referral sent via [facility] to Boni Bautista. Tomasa Johns Discharge Planning Asst.
--- NOTE | 2023-12-11 09:52 | RAD_ITS ---
STUDY: X-RAY - LEFT WRIST REASON FOR EXAM: Female, 73 years old. Left wrist pain. TECHNIQUE: 3 view(s) of the wrist were obtained. COMPARISON: None. FINDINGS: Marked osteopenia. Mild arthrosis of the radiocarpal articulation. Mild arthrosis of the distal radioulnar articulation. Moderate arthrosis of the radiocarpal row of the wristmoderate arthrosis of the first CMC joint. Moderate arthrosis of the visualized MCP joints. Superficial soft tissue swelling with superficial soft tissue calcification adjacent to the distal ulna. RAD/Wrist min 3 Views IMPRESSION: Osteopenia with osteoarthritic changes. Soft tissue swelling with superficial soft tissue calcification. No acute osseous abnormality. Electronically Signed: Richard Moralez MD at 11:00 EDT ,
[2023-12-11] MEDS: Pantoprazole Sodium 40 MG in 0.9% Normal Saline (100mL MB+) 100 ML 330 MG IV (10:22)
--- NOTE | 2023-12-11 10:24 | PN.ID_ITS ---
Physical Exam Narrative Feeling better, having difficulty bringing up sputum. No fever. Const alert and no apparent distress Resp Auscultation: rhonchi Cardio regular rate and regular rhythm GI soft to palpation, non-tender and non-distended Skin no rashes or lesions noted ID ID: Route of nutrition/ use of supplements: [] Nutritional Intake: [] IV Site: [] Clinton Catheter: [] Assessment & Plan Assessment/Plan (1) Septic shock: PLAN: Ucx with ESBL ecoli and strep. Cont vanc for planned 7 day course. Will stop jeannie now. Off vent. No further fever, BP improved Will follow (2) Urinary tract infection: QUALIFIERS: Urinary tract infection type: site unspecified H ematuria presence: without hematuria Qualified Code(s): N39.0 - Urinary tract infection, site not specified (3) Chronic hypoxemic respiratory failure:
[2023-12-11] MEDS: Potassium Chloride 20mEq/100mL 20 MEQ/100 ML IV.SOLN. 100 MEQ IV BOLUS ×2 (10:50→11:55)
[2023-12-11] MEDS: Atorvastatin Calcium 40 MG Tablet PO (20:36)
[2023-12-11] MEDS: MELATONIN 10 MG TABLET PO (20:36)
[2023-12-12] VITALS (12 sets, daily range): BP systolic 134–145; BP diastolic 56–74; PULSE 92–101; RESP 16–21; TEMP 36.4–36.9; O2SAT 96–98; BMI 35.5
[2023-12-12] MEDS: Ipratropium/Albuterol Sulfate 3 ML AMPUL.NEB INHALATION ×4 (01:35→20:01)
[2023-12-12] MEDS: Vancomycin Trough/Random Due 1 LAB MC (03:25)
[2023-12-12 03:33] LABS: Absolute Lymphocyte Count 2.36 X10^3/uL (0.83-4.51); Absolute Neutrophil Count 2.7 X10^3/uL (2.0-7.7); Basophil# 0.06 X10^3/uL; Basophil% 0.9 % (0-1); Eosinophil# 0.74 X10^3/uL; Eosinophils% 11.1 % (0-5); Hematocrit 29.1 % (37-47); Hemoglobin 8.9 g/dL (12.0-15.0); Lymphocyte # 2.36 X10^3/ul (0.83-4.51); Lymphocyte % 35.4 % (19-41); Mean Corp Hgb Conc 30.6 g/dL (32-36); Mean Corpuscular Hgb 30.3 pg (27.0-32.0); Mean Platelet Vol. 10.2 fl (6.2-12.0); Monocyte# 0.82 X10^3/uL; Monocyte% 12.3 % (0-10); NRBC Flagged by Analyzer 0 % (0-5); Neutrophil # 2.66 X10^3/uL (2.7-7.7); Platelet Count 285 K/mm3 (150-450); RBC Distribution Width CV 15.2 % (11.6-14.6); RBC Distribution Width SD 54.8 fl (35.1-43.9); Red Blood Count 2.94 M/mm3 (4.2-5.4); White Blood Count 6.7 K/mm3 (4.4-11.0)
[2023-12-12 03:47] LABS: Anion Gap 4 (5-15); BUN 8 mg/dL (7-18); BUN/Creat Ratio 18.3 RATIO (10-20); Calcium,Total 9.2 mg/dL (8.5-10.1); Chloride 103 mmol/L (98-107); Creatinine, Serum 0.44 mg/dL (0.55-1.02); EST Glomerular Filtration Rate 150 mL/min (>60); Est Glom Filt Rate - Afr Amer 182 mL/min (>60); Estimated Creatinine Clearance 71.11 ml/min; Glucose 93 mg/dL (74-106); Potassium 3.9 mmol/L (3.5-5.1); Sodium Level 141 mmol/L (136-145)
--- NOTE | 2023-12-12 04:02 | PCM.RX.CS ---
Consult Antibiotic Management Pharmacy has been consulted to manage selected antibiotic: Vancomycin Type of Intervention Type of Consult: Follow-up Suspected Infection Suspected Infection: Sepsis Labs Labs: Sodium 141 mmol/L (136-145) 12/12/23 03:25 Potassium 3.9 mmol/L (3.5-5.1) 12/12/23 03:25 Chloride 103 mmol/L (98-107) 12/12/23 03:25 Carbon Dioxide 34.0 mmol/L (21.0-32.0) H 12/12/23 03:25 Anion Gap 4 (5-15) L 12/12/23 03:25 BUN 8 mg/dL (7-18) 12/12/23 03:25 Creatinine 0.44 mg/dL (0.55-1.02) L 12/12/23 03:25 Est GFR (MDRD) Af Amer 182 mL/min (>60) 12/12/23 03:25 Est GFR (MDRD) Non-Af 150 mL/min (>60) 12/12/23 03:25 BUN/Creatinine Ratio 18.3 RATIO (10-20) 12/12/23 03:25 Glucose 93 mg/dL (74-106) 12/12/23 03:25 Vancomycin Trough 22.0 ug/mL (5.0-15.0) H 12/12/23 03:25 Random Vancomycin 13.4 ug/mL (0.0-15.0) 12/10/23 13:15 Microbiology Microbiology: Microbiology 12/05/23 13:25 Blood Culture (Wb) - Pic Blood Culture - Final Staphylococcus epidermidis 12/05/23 13:30 Blood Culture (Wb) - Left Forearm Blood Culture - Final No growth in 5 days. 12/08/23 06:35 Blood Culture (Wb) - No Site/Description Given Blood Culture - Preliminary No growth in 48 hours. 12/08/23 06:30 Blood Culture (Wb) - No Site/Description Given Blood Culture - Preliminary No growth in 48 hours. 12/05/23 13:24 Sputum, Induced/Lukens Gram Stain - Final 12/05/23 13:24 Sputum, Induced/Lukens Respiratory Culture - Final Presumptive C albicans 12/05/23 13:24 Mucosa - Nose SARS-CoV-2, Influenza & RSV (PCR) - Final 11/29/23 12:28 Blood Culture (Wb) - Anticubital Right Blood Culture - Final No growth in 5 days. 11/29/23 11:54 Blood Culture (Wb) - Anticubital Right Blood Culture - Final No growth in 5 days. 12/02/23 08:21 Sputum, Induced/Lukens Gram Stain - Final 12/02/23 08:21 Sputum, Induced/Lukens Respiratory Culture - Final Presumptive C albicans 12/02/23 08:21 Mucosa - Nose SARS-CoV-2, Influenza & RSV (PCR) - Final 11/29/23 12:19 Urine, Clean Catch Urine Culture - Final Culture exhibits no growth. 11/29/23 12:19 Mucosa - Nasopharyngeal SARS-CoV-2, Influenza & RSV (PCR) - Final Dosing Weight Weight used for dosin.1 kg Estimated Creatinine Clearance Estimated Creatinine Clearance: 71 Goal Trough Goal Trough: 15-20 mcg/mL Pharmacy Plan for Drug Dosing Pharmacy Plan for Drug Dosing: Vancomycin trough level, drawn 12 hours post-dose, again crept above 20 to 22.0. The current dosing will be held, and a random vancomycin level will be drawn in 12 hours to determine further adjustments. Pharmacy Service will continue to monitor and adjust dosing as required. Follow-Up Labs Follow-Up Labs: Trough: Vancomycin (random) Date/Time Labs Ordered Labs to be done on [date and time ordered]: 12/12/23 @1530 random
[2023-12-12] MEDS: Budesonide Respules 0.5 MG/2 ML AMPUL.NEB. INHALATION ×2 (06:42→20:01)
[2023-12-12] MEDS: Clopidogrel Bisulfate 75 MG Tablet PO (08:51)
[2023-12-12] MEDS: Aspirin 81 MG TAB.CHEW PO (08:51)
[2023-12-12] MEDS: Calcium (Elemental) 500 MG Tablet 2000 MG PO (08:51)
[2023-12-12] MEDS: Cholecalciferol (VIT D3) 25 MCG TABLET (1,000 UNITS) PO ×2 (08:51→22:40)
[2023-12-12] MEDS: Folic Acid 1 MG Tablet PO (08:52)
[2023-12-12] MEDS: Menthol/Lanolin/Calamine/Znox 113 GM Tube 1 APPLIC TOPICAL ×2 (08:52→22:18)
[2023-12-12] MEDS: Heparin Injection (Vial) 5,000 UNIT/ML VIAL 5000 UNIT SC ×2 (08:52→22:40)
[2023-12-12] MEDS: CHLORHEXIDINE GLUC 2% CLOTH 1 EACH TOWELETTE TOPICAL (08:53)
[2023-12-12] MEDS: HYDROcodone Bitartrate/Apap 5/325 Tablet PO ×2 (09:09→22:17)
[2023-12-12] MEDS: Pantoprazole Sodium 40 MG in 0.9% Normal Saline (100mL MB+) 100 ML 330 MG IV (11:04)
[2023-12-12] MEDS: Potassium Chloride 20mEq/100mL 20 MEQ/100 ML IV.SOLN. 100 MEQ IV BOLUS ×2 (12:34→13:55)
--- NOTE | 2023-12-12 15:30 | PN_ITS ---
Subjective Subjective Patient seen and examined. She had no complaints today. She felt well. Review of systems otherwise negative. She has remained hemodynamically stable. Objective Data Objective Data Vital Signs: Vital Signs Temp Pulse Resp BP Pulse Ox O2 Del Method O2 Flow Rate 98.5 F 99 20 H 145/74 H 97 Nasal Cannula 4 12/12/23 11:00 12/12/23 13:17 12/12/23 13:17 12/12/23 11:00 12/12/23 11:44 12/12/23 14:46 12/12/23 14:46 FiO2 40 12/08/23 04:00 Oxygen Flow Rate (L/min) 4 Oxygen Delivery Method Nasal Cannula Weight: 207 lb 3.752 oz Body Mass Index (BMI) 35.5 Intake & Output: Intake and Output for Last 24 Hours 12/10/23 12/11/23 12/12/23 23:59 23:59 23:59 Intake Total 1435.75 / 1435.75 1830 / 1830 670 / 670 Output Total 2425 / 2425 950 / 950 Balance -989.25 / -989.25 880 / 880 670 / 670 Lab / Micro Data 12/12/23 03:25 12/12/23 03:25 Labs: Laboratory Results - last 24 hr 12/12/23 03:25: WBC 6.7, RBC 2.94 L, Hgb 8.9 L, Hct 29.1 L, MCV 99.0, MCH 30.3, MCHC 30.6 L, RDW Std Deviation 54.8 H, RDW Coeff of Sonya 15.2 H, Plt Count 285, MPV 10.2, Immature Gran % (Auto) 0.300, Neut % (Auto) 40.0 L, Lymph % (Auto) 35.4, Harrison % (Auto) 12.3 H, Eos % (Auto) 11.1 H, Baso % (Auto) 0.9, Absolute Neuts (auto) 2.7, Absolute Lymphs (auto) 2.36, Nucleated RBC % 0, Sodium 141, Potassium 3.9, Chloride 103, Carbon Dioxide 34.0 H, Anion Gap 4 L, BUN 8, Creatinine 0.44 L, Estim Creat Clear Calc 71.11, Est GFR (MDRD) Af Amer 182, Est GFR (MDRD) Non-Af 150, BUN/Creatinine Ratio 18.3, Glucose 93, Calcium 9.2, Vancomycin Trough 22.0 H Micro: Microbiology 12/05/23 13:25 Blood Culture (Wb) - Pic Blood Culture - Final Staphylococcus epidermidis 12/05/23 13:30 Blood Culture (Wb) - Left Forearm Blood Culture - Final No growth in 5 days. 12/08/23 06:35 Blood Culture (Wb) - No Site/Description Given Blood Culture - Preliminary No growth in 48 hours. 12/08/23 06:30 Blood Culture (Wb) - No Site/Description Given Blood Culture - Preliminary No growth in 48 hours. 12/05/23 13:24 Sputum, Induced/Lukens Gram Stain - Final 12/05/23 13:24 Sputum, Induced/Lukens Respiratory Culture - Final Presumptive C albicans 12/05/23 13:24 Mucosa - Nose SARS-CoV-2, Influenza & RSV (PCR) - Final 11/29/23 12:28 Blood Culture (Wb) - Anticubital Right Blood Culture - Final No growth in 5 days. 11/29/23 11:54 Blood Culture (Wb) - Anticubital Right Blood Culture - Final No growth in 5 days. 12/02/23 08:21 Sputum, Induced/Lukens Gram Stain - Final 12/02/23 08:21 Sputum, Induced/Lukens Respiratory Culture - Final Presumptive C albicans 12/02/23 08:21 Mucosa - Nose SARS-CoV-2, Influenza & RSV (PCR) - Final 11/29/23 12:19 Urine, Clean Catch Urine Culture - Final Culture exhibits no growth. 11/29/23 12:19 Mucosa - Nasopharyngeal SARS-CoV-2, Influenza & RSV (PCR) - Final Rhythm Strip Rhythm Strip: Sinus Rhythm Rate: 96 Ectopy: - Physical Exam Const alert, oriented x3 and no apparent distress Constitutional Narrative: frail HEENT normocephalic, head/scalp atraumatic, EAC's normal and moist oral mucous membranes Eyes PERRL and EOMs intact bilaterally Neck no lymphadenopathy and supple Lymph Lymphatic: no lymphadenopathy noted and no lymphedema noted Resp normal respiratory effort, no retractions, no use of accessory muscles and clear to auscultation bilaterally Resp Narrative: mildly diminished breath sounds bibasally, no wheezes or crackles. on 3L of oxygen by nasal canula, which is her baseline Cardio regular rate, regular rhythm, S1 normal heart sound, S2 normal heart sound and no murmurs GI normal to inspection, nondistended, normoactive bowel sounds, soft to palpation, non-tender and non-distended Extremity normal capillary refill, no clubbing, cyanosis or edema and no calf tenderness Extremity Narrative: pain in left wrist has resolved. Skin General Skin Exam: no breakdown Neuro CN's II-XII intact bilaterally and no focal motor deficits Motor Exam: strength 5/5 throughout and general weakness Psych thought process normal and cooperative Appearance: appropriate Activity / Motor Behavior: restless Assessment & Plan Assessment/Plan (1) Septic shock: PLAN: Plan #Septic shock * remains off. Feels much better * Septic shock thought to be due to UTI. She had had a history of recent ESBL E. coli. * IV meropenem discontinued. Per ID to continue vancomycin for 7-day course. * ID on board * #Acute hypoxic respiratory failure * Had to be intubated on admission. Now extubated. Remains on 3L of oxygen. * Titrate oxygen to maintain saturation above 90%. * Breathing treatments bronchodilators. Pulmonology on board. * #Left wrist pain * X-ray of the left wrist shows soft tissue swelling with superficial soft tissue calcification. There was no acute or stress abnormality. * Pain has resolved today and she is able to flex and extend the left wrist. * PO tylenol. * PT/OT consult * #ELIZABETH: Resolved. #Bradycardia: Metoprolol held due to bradycardia which has now resolved. Will resume metoprolol #Benign essential hypertension: BP meds held due to hypotension and septic shock. Resume meds #Hyperlipidemia: On statin #Psoriatic arthritis: On hydrocortisone. Was previously on Humira. #CAD: On aspirin and statin as well as Plavix. #Anemia: Anemia of chronic disease. Transfuse if Hb is less than 7. Hb today is 9. DVT prophylaxis: heparin Disposition: for likely DC tomorrow. Charges/Coding Visit Charges Inpatient E&M: 89351 Subs Hosp L2
--- NOTE | 2023-12-12 15:43 | CASEMGMT ---
Patient was approved by insurance and pre-cert is good through 12-14. SW completed a PASRR in [facility] system. Plan: d/c to [facility] under skilled level of care on a PASRR. Physicians will transport patient. Flores MORTENSEN
--- NOTE | 2023-12-12 16:32 | PCM.RX.CS ---
Consult Antibiotic Management Pharmacy has been consulted to manage selected antibiotic: Vancomycin Type of Intervention Type of Consult: Follow-up Prior Doses of Antibiotics Prior Doses of Antibiotics Received/Current Regimen: the most recent dose was vanc 1250mg IV q12h before that was held due to a high trough Labs Labs: Sodium 141 mmol/L (136-145) 12/12/23 03:25 Potassium 3.9 mmol/L (3.5-5.1) 12/12/23 03:25 Chloride 103 mmol/L (98-107) 12/12/23 03:25 Carbon Dioxide 34.0 mmol/L (21.0-32.0) H 12/12/23 03:25 Anion Gap 4 (5-15) L 12/12/23 03:25 BUN 8 mg/dL (7-18) 12/12/23 03:25 Creatinine 0.44 mg/dL (0.55-1.02) L 12/12/23 03:25 Est GFR (MDRD) Af Amer 182 mL/min (>60) 12/12/23 03:25 Est GFR (MDRD) Non-Af 150 mL/min (>60) 12/12/23 03:25 BUN/Creatinine Ratio 18.3 RATIO (10-20) 12/12/23 03:25 Glucose 93 mg/dL (74-106) 12/12/23 03:25 Vancomycin Trough 22.0 ug/mL (5.0-15.0) H 12/12/23 03:25 Random Vancomycin 13.0 ug/mL (0.0-15.0) 12/12/23 15:28 Microbiology Microbiology: Microbiology 12/05/23 13:25 Blood Culture (Wb) - Pic Blood Culture - Final Staphylococcus epidermidis 12/05/23 13:30 Blood Culture (Wb) - Left Forearm Blood Culture - Final No growth in 5 days. 12/08/23 06:35 Blood Culture (Wb) - No Site/Description Given Blood Culture - Preliminary No growth in 48 hours. 12/08/23 06:30 Blood Culture (Wb) - No Site/Description Given Blood Culture - Preliminary No growth in 48 hours. 12/05/23 13:24 Sputum, Induced/Lukens Gram Stain - Final 12/05/23 13:24 Sputum, Induced/Lukens Respiratory Culture - Final Presumptive C albicans 12/05/23 13:24 Mucosa - Nose SARS-CoV-2, Influenza & RSV (PCR) - Final 11/29/23 12:28 Blood Culture (Wb) - Anticubital Right Blood Culture - Final No growth in 5 days. 11/29/23 11:54 Blood Culture (Wb) - Anticubital Right Blood Culture - Final No growth in 5 days. 12/02/23 08:21 Sputum, Induced/Lukens Gram Stain - Final 12/02/23 08:21 Sputum, Induced/Lukens Respiratory Culture - Final Presumptive C albicans 12/02/23 08:21 Mucosa - Nose SARS-CoV-2, Influenza & RSV (PCR) - Final 11/29/23 12:19 Urine, Clean Catch Urine Culture - Final Culture exhibits no growth. 11/29/23 12:19 Mucosa - Nasopharyngeal SARS-CoV-2, Influenza & RSV (PCR) - Final Dosing Weight Weight used for dosin kg Estimated Creatinine Clearance Estimated Creatinine Clearance: 71 ml/min Goal Trough Goal Trough: 15-20 mcg/mL Pharmacy Plan for Drug Dosing Pharmacy Plan for Drug Dosing: The vanc random level drawn at 15:28 today (approx 24 hours after the most recent dose of 1250mg) was 13.0. Since the trough is now back below 20, will restart dosing at a newly calculated dose of 1500mg IV q24h. Will check a trough before the 3rd dose. Pharmacy Service will continue to monitor and adjust dosing as required. Follow-Up Labs Follow-Up Labs: Trough: Vancomycin Date/Time Labs Ordered Labs to be done on [date and time ordered]: 12/14/23 16:30
[2023-12-12] MEDS: Oxymetazoline 0.05% 1 SPRAY SPRAY.BTL 2 SPRAY NASAL (16:59)
[2023-12-12] MEDS: Sodium Chloride 0.65% 1 SPRAY SPRAY.BTL 2 SPRAY NASAL (17:01)
[2023-12-12] MEDS: Vancomycin HCl 1,500 MG in 0.9% Normal Saline (500mL Bag) 500 ML 250 MG IV (18:13)
[2023-12-12] MEDS: Metoprolol Tartrate 25 MG Tablet 12.5 MG PO (22:17)
[2023-12-12] MEDS: 0.9% Saline Lock 10 ML Syringe IV (22:18)
[2023-12-12] MEDS: MELATONIN 10 MG TABLET PO (22:18)
[2023-12-12] MEDS: guaiFENesin 600 MG Tablet PO (22:18)
[2023-12-12] MEDS: Atorvastatin Calcium 40 MG Tablet PO (22:39)
[2023-12-13] VITALS (8 sets, daily range): BP systolic 114–133; BP diastolic 46–65; PULSE 73–86; RESP 16–18; TEMP 36.6–36.9; O2SAT 97–99; BMI 35.4
[2023-12-13] MEDS: Ipratropium/Albuterol Sulfate 3 ML AMPUL.NEB INHALATION ×2 (01:58→08:11)
[2023-12-13] MEDS: Budesonide Respules 0.5 MG/2 ML AMPUL.NEB. INHALATION (08:11)
[2023-12-13 08:55] LABS: Absolute Lymphocyte Count 2.61 X10^3/uL (0.83-4.51); Absolute Neutrophil Count 2.3 X10^3/uL (2.0-7.7); Basophil# 0.07 X10^3/uL; Eosinophils% 13.4 % (0-5); Hematocrit 30.6 % (37-47); Hemoglobin 9.3 g/dL (12.0-15.0); Lymphocyte # 2.61 X10^3/ul (0.83-4.51); Lymphocyte % 38.8 % (19-41); Mean Corp Hgb Conc 30.4 g/dL (32-36); Mean Corpuscular Hgb 30.3 pg (27.0-32.0); Mean Corpuscular Volume 99.7 fL (81-99); Mean Platelet Vol. 10.9 fl (6.2-12.0); Monocyte% 11.9 % (0-10); NRBC Flagged by Analyzer 0 % (0-5); Neutrophil # 2.32 X10^3/uL (2.7-7.7); Neutrophil % 34.6 % (47-70); Platelet Count 353 K/mm3 (150-450); RBC Distribution Width CV 15.4 % (11.6-14.6); RBC Distribution Width SD 55.8 fl (35.1-43.9); Red Blood Count 3.07 M/mm3 (4.2-5.4); White Blood Count 6.7 K/mm3 (4.4-11.0)
[2023-12-13 09:45] LABS: Anion Gap 5 (5-15); BUN 7 mg/dL (7-18); BUN/Creat Ratio 17.3 RATIO (10-20); Calcium,Total 9.6 mg/dL (8.5-10.1); Chloride 105 mmol/L (98-107); EST Glomerular Filtration Rate 165 mL/min (>60); Est Glom Filt Rate - Afr Amer 199 mL/min (>60); Estimated Creatinine Clearance 70.58 ml/min; Glucose 98 mg/dL (74-106); Potassium 3.8 mmol/L (3.5-5.1); Sodium Level 141 mmol/L (136-145)
[2023-12-13] MEDS: Calcium (Elemental) 500 MG Tablet 2000 MG PO (11:35)
[2023-12-13] MEDS: Menthol/Lanolin/Calamine/Znox 113 GM Tube 1 APPLIC TOPICAL (11:35)
[2023-12-13] MEDS: Aspirin 81 MG TAB.CHEW PO (11:35)
[2023-12-13] MEDS: Folic Acid 1 MG Tablet PO (11:35)
[2023-12-13] MEDS: Heparin Injection (Vial) 5,000 UNIT/ML VIAL 5000 UNIT SC (11:36)
[2023-12-13] MEDS: guaiFENesin 600 MG Tablet PO (11:38)
[2023-12-13] MEDS: Clopidogrel Bisulfate 75 MG Tablet PO (11:38)
[2023-12-13] MEDS: HYDROcodone Bitartrate/Apap 5/325 Tablet PO (11:38)
[2023-12-13] MEDS: Losartan Potassium 50 MG Tablet PO (11:44)
[2023-12-13] MEDS: Metoprolol Tartrate 25 MG Tablet 12.5 MG PO (11:44)
--- NOTE | 2023-12-13 11:50 | TREXTCAR_ITS ---
Diet Diet Order/Speech Therapy: 12/08/23 10:18 Diet: Regular - General Food consistency:: Regular Liquid Consistency:: Regular/Thin Dietary Modifications:: Sodium Restricted Is pt able to select menu?: Yes Diet Comments: Distant supervision, Discont diet if worsening respiratory status Routine Orders/Code Status Enema Type: Fleetz Enema Frequency: Daily PRN Suppository Frequency: Daily PRN O2 Frequency: PRN Keep PO Greater than or Equal to (%): 90 Wound(s) Rt I-J: Wound Type: Puncture Therapies Weight Bearing: Weight bearing as tolerated Physical Therapy: Eval and Treat Occupational Therapy: Eval and Treat Problem/Diagnosis (1) Septic shock: Status: Acute Code(s): A41.9 - Sepsis, unspecified organism; R65.21 - Severe sepsis with septic shock Plan #Septic shock * remains off. Feels much better * Septic shock thought to be due to UTI. She had had a history of recent ESBL E. coli. * IV meropenem discontinued. Per ID to continue vancomycin for 7-day course. * ID on board * #Acute hypoxic respiratory failure * Had to be intubated on admission. Now extubated. Remains on 3L of oxygen. * Titrate oxygen to maintain saturation above 90%. * Breathing treatments bronchodilators. Pulmonology on board. * #Left wrist pain * X-ray of the left wrist shows soft tissue swelling with superficial soft tissue calcification. There was no acute or stress abnormality. * Pain has resolved today and she is able to flex and extend the left wrist. * PO tylenol. * PT/OT consult * #ELIZABETH: Resolved. #Bradycardia: Metoprolol held due to bradycardia which has now resolved. Will resume metoprolol #Benign essential hypertension: BP meds held due to hypotension and septic shock. Resume meds #Hyperlipidemia: On statin #Psoriatic arthritis: On hydrocortisone. Was previously on Humira. #CAD: On aspirin and statin as well as Plavix. #Anemia: Anemia of chronic disease. Transfuse if Hb is less than 7. Hb today is 9. DVT prophylaxis: heparin Disposition: for likely DC tomorrow. Allergies/Procedures Done in Hospital Allergies duloxetine [From Cymbalta] Allergy (Intermediate, Verified 11/29/23 11:36) Swelling Nausea erythromycin base Allergy (Verified 11/29/23 11:36) Nausea/Vom/Diarrhea pregabalin [From Lyrica] Allergy (Verified 11/29/23 11:36) Swelling Procedures: None Type of Care/Length of Stay Estimated LOS: Convalescent Care Less Than 30 days Type of Care Needed: Skilled Rehab Potential: Fair Prognosis: Fair Additional Orders/Day of Discharge Day of Discharge: 12/13/23 Dietary and Speech Recommendations Dietitian Recommendations/Changes: Continue Regular diet as tolerated, will add sodium restriction and d/c Ensure per pt request. Discharge Plan Admission Admit Date/Time: 11/29/23 15:00 Primary Reason for Your Visit: septic shock, acute hypoxic respiratory failure Attending Provider: Hemalatha Varma Primary Care Provider: Pedro Williamson Consulting Providers: Aung Brown; Belkys Garrison; Vicky Tinsley; Venancio Rose; Brad Mckeon; Jefferson Perez; Samson Chavez; [place] De Los Santos; Ruiz Norman; Charlene Miguel; Steve Scanlon; Vincenzo Haile; Ron Moy; Osorio Harrison; Tyree Mendoza; Guillermo Wright; Esvin Brunson; Drake Alarcon ASSISTANT MERCHANDISE MANAGER; Belkys Blair NP; Yusra Del Rio; Ruiz Lopes; Jose Ramon De La Torre; Marquis Peñaloza; Jhony Ortega Instructions Patient Instructions: Sepsis Discharge Orders/Prescriptions Prescriptions: Continued melatonin 10 mg capsule 10 mg PO HS PRN (Reason: Sleep) folic acid 1 mg tablet 1 mg PO DAILY fluticasone propionate 50 mcg/actuation spray,suspension 2 spray intranasal DAILY Qty: 16 3RF hydrocodone-acetaminophen 10-325 mg tablet 0.5 tab PO BID 10 Days Qty: 10 0RF tizanidine 4 MG tablet 4 mg PO QHS 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 Fish Oil 1 EACH capsule 1,000 mg PO DAILY calcium carbonate 600 MG tablet 2,000 mg PO DAILY cholecalciferol (vitamin D3) [Vitamin D3] 1,000 UNIT tablet 1,000 unit PO BID prednisone 5 mg tablet 1 tab PO DAILY Hold Instructions: Resume on 06/23/23. Mucinex DM 30-600 mg Tablet Extended Release 12 Hr 2 tab PO BID PRN (Reason: cough) polyethylene glycol 3350 17 gram Powder In Packet 17 g PO DAILY Qty: 0 0RF oxymetazoline [Nasal [place] (oxymetazoline)] 0.05 % [place],Non-Aerosol 2 spray NASAL X1 PRN (Reason: NASAL CONGESTION) Qty: 0 0RF miconazole nitrate [Desenex] 2 % Powder 1 applic topical BID Qty: 0 0RF Protocol: *Topical Application Instructions APPLICATION INSTRUCTIONS: APPLY TO GROIN AND FOLDS aspirin 81 mg Tablet,Chewable 81 mg PO DAILY@0800 Qty: 0 0RF fluconazole 150 mg tablet 150 mg PO DAILY potassium chloride 20 mEq packet 20 meq PO DAILY Rx Instructions: dissolve 1 packet in 4 ounce(s) OF WATER AND DRINK DAILY lansoprazole 30 mg capsule,delayed release(DR/EC) 30 mg PO DAILY losartan 50 mg tablet 50 mg PO DAILY ipratropium-albuterol 0.5 mg-3 mg(2.5 mg base)/3 mL Solution For Nebulization 3 ml inhalation Q6H buprenorphine 15 mcg/hour patch weekly 1 patch transdermal Q7D Patient Comments: PT THINKS SHE CHANGES PATCH ON FRIDAY (DME) Bedside commode See Rx Instructions .Route .MEDSUPPLY Qty: 1 0RF Rx Instructions: As directed hydrochlorothiazide 25 mg tablet 25 mg PO DAILY Qty: 1 0RF atorvastatin 40 mg tablet 40 mg PO QHS Qty: 90 3RF clopidogrel [Plavix] 75 mg tablet 75 mg PO DAILY Qty: 90 3RF metoprolol tartrate 25 mg tablet 12.5 mg PO BID Qty: 90 3RF (DME) nebulizers Misc See Rx Instructions .Route Qty: 1 0RF Rx Instructions: Nebulizer machine to be used as directed. Referrals / Follow Up: Pedro Williamson DO [Primary Care Provider] - Within 2 Weeks Disposition Disposition (needs filled in before D/C Order can be placed): Residential Facility
--- NOTE | 2023-12-13 11:51 | DS.PCM_ITS ---
Providers Date of Admission: 11/29/23 Date of Discharge: 12/14/23 Primary Care Physician: Dr. Pedro Williamson, Consultations 11/29/23 16:48 Consult: Driver Service Technician / Pulmonary Medicine Routine Consulting Provider: Intensivists/Pulmonary Med Reason for Consult: septic shock EMERGENT Consult: No Notified: Yes Date Notified: 11/29/23 Time Notified: 16:13 Method of Notification: Tele PCC Consult placed 11/29/23 21:35 Consult: Cardiology Routine Consulting Provider: Shana Puckett Reason for Consult: Sick sinus EMERGENT Consult: No Notified: Yes Date Notified: 11/29/23 Time Notified: 21:36 Method of Notification: Text 12/01/23 12:20 Consult: Infectious Disease Routine Consulting Provider: Marquis Peñaloza Reason for Consult: Recurrent UTI with ESBL EMERGENT Consult: No Notified: Yes Date Notified: 12/01/23 Time Notified: 14:04 Method of Notification: Answering Service Reason For Visit: SEPTIC SHOCK, UTI Diagnosis Discharge Diagnosis (1) Septic shock: Status: Acute Code(s): A41.9 - Sepsis, unspecified organism; R65.21 - Severe sepsis with septic shock Plan #Septic shock * remains off. Feels much better * Septic shock thought to be due to UTI. She had had a history of recent ESBL E. coli. * IV meropenem discontinued. Per ID to continue vancomycin for 7-day course. * ID on board * #Acute hypoxic respiratory failure * Had to be intubated on admission. Now extubated. Remains on 3L of oxygen. * Titrate oxygen to maintain saturation above 90%. * Breathing treatments bronchodilators. Pulmonology on board. * #Left wrist pain * X-ray of the left wrist shows soft tissue swelling with superficial soft tissue calcification. There was no acute or stress abnormality. * Pain has resolved today and she is able to flex and extend the left wrist. * PO tylenol. * PT/OT consult * #ELIZABETH: Resolved. #Bradycardia: Metoprolol held due to bradycardia which has now resolved. Will resume metoprolol #Benign essential hypertension: BP meds held due to hypotension and septic shock. Resume meds #Hyperlipidemia: On statin #Psoriatic arthritis: On hydrocortisone. Was previously on Humira. #CAD: On aspirin and statin as well as Plavix. #Anemia: Anemia of chronic disease. Transfuse if Hb is less than 7. Hb today is 9. DVT prophylaxis: heparin Disposition: for likely DC tomorrow. Medications at Discharge Home Medications omega-3 fatty acids-fish oil 340 mg-1,000 mg capsule (Fish Oil) 1,000 mg PO DAILY supplment 11/10/15 tizanidine 4 mg tablet 4 mg PO QHS muscle relaxer 11/10/15 calcium carbonate 600 mg calcium (1,500 mg) tablet 2,000 mg PO DAILY bone health 11/17/15 cholecalciferol (vitamin D3) 25 mcg (1,000 unit) tablet (Vitamin D3) 1,000 unit PO BID supplement 11/17/15 folic acid 1 mg tablet 1 mg PO DAILY 04/05/22 melatonin 10 mg capsule 10 mg PO HS PRN Sleep 04/05/22 prednisone 5 mg tablet 1 tab PO DAILY 04/30/22 aspirin 81 mg chewable tablet 81 mg PO DAILY@0800 stent #0 tabs 06/13/23 miconazole nitrate 2 % topical powder (Desenex) 1 applic topical BID #0 grams 06/13/23 oxymetazoline 0.05 % nasal spray (Nasal [place] (oxymetazoline)) 2 spray NASAL X1 PRN NASAL CONGESTION #0 mL 06/13/23 polyethylene glycol 3350 17 gram oral powder packet 17 g PO DAILY #0 ea 06/13/23 Bedside commode #1 ea 07/16/23 hydrochlorothiazide 25 mg tablet 25 mg PO DAILY #1 TAB 07/28/23 atorvastatin 40 mg tablet 40 mg PO QHS #90 tabs 08/04/23 clopidogrel 75 mg tablet (Plavix) 75 mg PO DAILY #90 tabs 08/04/23 metoprolol tartrate 25 mg tablet 12.5 mg (1/2 x 25 mg) PO BID #90 tabs 08/04/23 fluticasone propionate 50 mcg/actuation nasal spray,suspension 2 spray intranasal DAILY #16 grams 09/08/23 nebulizers #1 ea 11/03/23 dextromethorphan-guaifenesin 30 mg-600 mg tablet extended [id number] hr (Mucinex DM) 2 tab PO BID PRN cough 11/10/23 buprenorphine 15 mcg/hour weekly transdermal patch 1 patch transdermal Q7D 11/29/23 fluconazole 150 mg tablet 150 mg PO DAILY 11/29/23 ipratropium 0.5 mg-albuterol 3 mg (2.5 mg base)/3 mL nebulization soln 3 ml inhalation Q6H 11/29/23 lansoprazole 30 mg capsule,delayed release 30 mg PO DAILY 11/29/23 losartan 50 mg tablet 50 mg PO DAILY 11/29/23 potassium chloride 20 mEq oral packet 20 meq PO DAILY 11/29/23 hydrocodone-acetaminophen 5-325mg 5mg-325mg 1 tab PO BID PRN Pain Score 4-10 5 days #10 tabs 12/13/23 Hospital Course Operations None Procedures None Summary of Care Provided Minutes Spent on Discharge: 55 Hospital Course: Patient is a 73-year-old female with extensive past medical history as outlined was admitted through the ED on 11/29/2023 with a complaint of vomiting and weakness. She had recently been admitted for ESBL E. coli UTI and treated with ertapenem. She was then discharged from the month prior to this admission. On the day of admission she felt weak and was having chills and nausea and vomiting. She denied any chest pain or abdominal pain. In the ED she was hypotensive and despite fluid boluses she did not respond so she was started on Levophed. She was also initially requiring 6 L of oxygen. She was admitted and managed for septic shock as well as acute on chronic hypoxic respiratory failure and UTI. She was requiring Levophed to maintain her MAP more than 65 and also required broad-spectrum antibiotics. Hospital course was complicated by worsening respiratory status and patient had to be intubated. Patient was also diuresed to help with fluid overload. Infectious disease was also consulted. Patient was subsequently extubated. However she did require Levophed for prolonged. After she was weaned off and became hypotensive again and had to be put back on. Blood cultures were ordered and she had growth of staph from a PICC line sample. Repeat blood cultures were negative. She was eventually weaned off of Levophed. She did have bradycardia during the admission and met oprolol was held but was subsequently resumed. Patient remained stable and was discharged to halfway facility on 12/13/2023. She is follow-up with her PCP within 1 to 2 weeks. Patient seen and examined prior to discharge. She had no active complaints and had an uneventful night. Review of systems otherwise negative. Labs and vitals reviewed. Medication reviewed and reconciled. Physical Exam Const alert, oriented x3 and no apparent distress Constitutional Narrative: frail General Appearance: cooperative and comfortable Orientation / Consciousness: awake HEENT normocephalic, head/scalp atraumatic, hearing grossly normal bilaterally, EAC's normal and moist oral mucous membranes Mouth: oral and palatal mucosa normal Eyes PERRL and EOMs intact bilaterally Neck no lymphadenopathy and supple Lymph Lymphatic: no lymphadenopathy noted and no lymphedema noted Resp normal respiratory effort, no retractions, no use of accessory muscles and clear to auscultation bilaterally Resp Narrative: mildly diminished breath sounds bibasally, no wheezes or crackles. on 3L of oxygen by nasal canula, which is her baseline Cardio regular rate, regular rhythm, S1 normal heart sound, S2 normal heart sound and no murmurs Cardio Narrative: mildly tachycardic. GI normal to inspection, nondistended, normoactive bowel sounds, soft to palpation, non-tender and non-distended GI Narrative: Suprapubic abdominal pain. Extremity normal capillary refill, no clubbing, cyanosis or edema and no calf tenderness Extremity Narrative: pain in left wrist has resolved. Skin General Skin Exam: no breakdown Neuro oriented x3, CN's II-XII intact bilaterally, moves all extremities and no focal motor deficits Sensorium / Orientation: awake and alert Motor Exam: strength 5/5 throughout and general weakness Psych thought process normal and cooperative Appearance: appropriate Activity / Motor Behavior: restless Weight / BMI Weight Weight: 206 lb 12.697 oz Body Mass Index (BMI) 35.4 ABG / Lab / Microbiology Data 12/13/23 08:05 12/13/23 08:05 Laboratory: Laboratory Results - last 24 hr 12/12/23 15:28: Random Vancomycin 13.0 12/13/23 08:05: WBC 6.7, RBC 3.07 L, Hgb 9.3 L, Hct 30.6 L, MCV 99.7 H, MCH 30.3, MCHC 30.4 L, RDW Std Deviation 55.8 H, RDW Coeff of Sonya 15.4 H, Plt Count 353, MPV 10.9, Immature Gran % (Auto) 0.300, Neut % (Auto) 34.6 L, Lymph % (Auto) 38.8, [place] % (Auto) 11.9 H, Eos % (Auto) 13.4 H, Baso % (Auto) 1.0, Absolute Neuts (auto) 2.3, Absolute Lymphs (auto) 2.61, Nucleated RBC % 0, Sodium 141, Potassium 3.8, Chloride 105, Carbon Dioxide 31.0, Anion Gap 5, BUN 7, Creatinine 0.40 L, Estim Creat Clear Calc 70.58, Est GFR (MDRD) Af Amer 199, Est GFR (MDRD) Non-Af 165, BUN/Creatinine Ratio 17.3, Glucose 98, Calcium 9.6 Microbiology: Microbiology 12/08/23 06:35 Blood Culture (Wb) - No Site/Description Given Blood Culture - Final No growth in 5 days. 12/08/23 06:30 Blood Culture (Wb) - No Site/Description Given Blood Culture - Final No growth in 5 days. 12/05/23 13:25 Blood Culture (Wb) - Pic Blood Culture - Final Staphylococcus epidermidis 12/05/23 13:30 Blood Culture (Wb) - Left Forearm Blood Culture - Final No growth in 5 days. 12/05/23 13:24 Sputum, Induced/Lukens Gram Stain - Final 12/05/23 13:24 Sputum, Induced/Lukens Respiratory Culture - Final Presumptive C albicans 12/05/23 13:24 Mucosa - Nose SARS-CoV-2, Influenza & RSV (PCR) - Final 11/29/23 12:28 Blood Culture (Wb) - Anticubital Right Blood Culture - Final No growth in 5 days. 11/29/23 11:54 Blood Culture (Wb) - Anticubital Right Blood Culture - Final No growth in 5 days. 12/02/23 08:21 Sputum, Induced/[place]ukens Gram Stain - Final 12/02/23 08:21 Sputum, Induced/Lukens Respiratory Culture - Final Presumptive C albicans 12/02/23 08:21 Mucosa - Nose SARS-CoV-2, Influenza & RSV (PCR) - Final 11/29/23 12:19 Urine, Clean Catch Urine Culture - Final Culture exhibits no growth. 11/29/23 12:19 Mucosa - Nasopharyngeal SARS-CoV-2, Influenza & RSV (PCR) - Final D/C Instructions Discharge Diet: Low fat / Low cholesterol Discharge Activity: Return to Normal Activity Call your doctor if you observe: Fever of 101 or Higher, Shortness of breath, Dizziness, Swelling in the ankles and Chest pain Meaningful Use Info Meaningful Use Diagnoses (Choose all that apply): None applicable Discharge Plan Admission Admit Date/Time: 11/29/23 15:00 Primary Reason for Your Visit: septic shock, acute hypoxic respiratory failure Attending Provider: Hemalatha Varma Primary Care Provider: Pedro Williamson Consulting Providers: Aung Brown; Belkys Garrison; Vicky Tinsley; Venancio Rose; Brad Mckeon; Jefferson Perez; Samson Chavez; [place]; Ruiz Norman; Charlene Miguel; Steve Scanlon; Vincenzo Haile; Ron Moy; Osorio Harrison; Tyree Mendoza; Guillermo Wright; Esvin Brunson; Drake Alarcon DEAN OF STUDENT SERVICES; Belkys Blair DEAN OF STUDENT SERVICES; Yusra Del Rio; Ruiz Lopes; Jose Ramon De La Torre; Marquis Peñaloza; Jhony Ortega Instructions Patient Instructions: Sepsis Discharge Orders/Prescriptions Prescriptions: New hydrocodone-acetaminophen 5-325 mg Tablet 1 tab PO BID PRN (Reason: Pain Score 4-10) 5 Days Qty: 10 0RF Continued melatonin 10 mg capsule 10 mg PO HS PRN (Reason: Sleep) folic acid 1 mg tablet 1 mg PO DAILY fluticasone propionate 50 mcg/actuation spray,suspension 2 spray intranasal DAILY Qty: 16 3RF tizanidine 4 MG tablet 4 mg PO QHS 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 Fish Oil 1 EACH capsule 1,000 mg PO DAILY calcium carbonate 600 MG tablet 2,000 mg PO DAILY cholecalciferol (vitamin D3) [Vitamin D3] 1,000 UNIT tablet 1,000 unit PO BID prednisone 5 mg tablet 1 tab PO DAILY Hold Instructions: Resume on 06/23/23. Mucinex DM 30-600 mg Tablet Extended Release 12 Hr 2 tab PO BID PRN (Reason: cough) polyethylene glycol 3350 17 gram Powder In Packet 17 g PO DAILY Qty: 0 0RF oxymetazoline [Nasal [place] (oxymetazoline)] 0.05 % [place],Non-Aerosol 2 spray NASAL X1 PRN (Reason: NASAL CONGESTION) Qty: 0 0RF miconazole nitrate [Desenex] 2 % Powder 1 applic topical BID Qty: 0 0RF Protocol: *Topical Application Instructions APPLICATION INSTRUCTIONS: APPLY TO GROIN AND FOLDS aspirin 81 mg Tablet,Chewable 81 mg PO DAILY@0800 Qty: 0 0RF fluconazole 150 mg tablet 150 mg PO DAILY potassium chloride 20 mEq packet 20 meq PO DAILY Rx Instructions: dissolve 1 packet in 4 ounce(s) OF WATER AND DRINK DAILY lansoprazole 30 mg capsule,delayed release(DR/EC) 30 mg PO DAILY losartan 50 mg tablet 50 mg PO DAILY ipratropium-albuterol 0.5 mg-3 mg(2.5 mg base)/3 mL Solution For Nebulization 3 ml inhalation Q6H buprenorphine 15 mcg/hour patch weekly 1 patch transdermal Q7D Patient Comments: PT THINKS SHE CHANGES PATCH ON FRIDAY (DME) Bedside commode See Rx Instructions .Route .MEDSUPPLY Qty: 1 0RF Rx Instructions: As directed hydrochlorothiazide 25 mg tablet 25 mg PO DAILY Qty: 1 0RF atorvastatin 40 mg tablet 40 mg PO QHS Qty: 90 3RF clopidogrel [Plavix] 75 mg tablet 75 mg PO DAILY Qty: 90 3RF metoprolol tartrate 25 mg tablet 12.5 mg PO BID Qty: 90 3RF (DME) nebulizers Misc See Rx Instructions .Route Qty: 1 0RF Rx Instructions: Nebulizer machine to be used as directed. Discontinued hydrocodone-acetaminophen 10-325 mg tablet 0.5 tab PO BID 10 Days Qty: 10 0RF Referrals / Follow Up: Pedro Williamson DO [Primary Care Provider] - Within 2 Weeks Disposition Disposition (needs filled in before D/C Order can be placed): Assisted Facility Charges/Coding Visit Charges Inpatient E&M: 05073 Disch Hosp >30min
--- NOTE | 2023-12-13 13:39 | NURSING ---
Report called to Yenny Toussaint LPN, at [phone].
[2023-12-13] MEDS: Senna/Docusate Sodium 1 Tablet 2 TABLET PO (13:55)
[2023-12-13] MEDS: Cholecalciferol (VIT D3) 25 MCG TABLET (1,000 UNITS) PO (13:56)
== END 2023-12-13 14:39 | disposition skilled nursing facility (03) | DRG 870 ==
LOC: ED 15:15 → ICU 15:17 → PCU 12-12 10:53
PROVIDERS: Family Medicine; Internal Medicine; Internal Medicine Critical Care Medicine; Internal Medicine Pulmonary Disease; Admitting Provider Internal Medicine; Emergency Provider Emergency Medicine; PCP Family Medicine; Visit Provider Student in an Organized Health Care Education/Training Program
DX: A41.51 Sepsis due to Escherichia coli [E. coli] (principal); J96.21 Acute and chronic respiratory failure with hypoxia; R65.21 Severe sepsis with septic shock; J84.9 Interstitial pulmonary disease, unspecified; E87.0 Hyperosmolality and hypernatremia; E87.29 Other acidosis; N17.9 Acute kidney failure, unspecified; I50.32 Chronic diastolic (congestive) heart failure; N30.00 Acute cystitis without hematuria; Z16.12 Extended spectrum beta lactamase (ESBL) resistance; L40.50 Arthropathic psoriasis, unspecified; D63.8 Anemia in other chronic diseases classified elsewhere; I11.0 Hypertensive heart disease with heart failure; A40.9 Streptococcal sepsis, unspecified; I25.10 Atherosclerotic heart disease of native coronary artery without angina pectoris; E78.00 Pure hypercholesterolemia, unspecified; E87.6 Hypokalemia; M19.90 Unspecified osteoarthritis, unspecified site; E86.0 Dehydration; E87.70 Fluid overload, unspecified; K59.00 Constipation, unspecified; M25.532 Pain in left wrist; E66.9 Obesity, unspecified; Z95.5 Presence of coronary angioplasty implant and graft; B96.20 Unspecified Escherichia coli [E. coli] as the cause of diseases classified elsewhere; Z79.82 Long term (current) use of aspirin; Z20.822 Contact with and (suspected) exposure to COVID-19; Z79.02 Long term (current) use of antithrombotics/antiplatelets; G89.29 Other chronic pain; Z87.891 Personal history of nicotine dependence; B95.5 Unspecified streptococcus as the cause of diseases classified elsewhere; Z79.899 Other long term (current) drug therapy; Z79.52 Long term (current) use of systemic steroids; Z99.81 Dependence on supplemental oxygen; Z68.38 Body mass index [BMI] 38.0-38.9, adult
CPT/HCPCS: 31500; 31720; 36415; 36569; 36600; 51702; 71045; 71046; 73110; 74177; 80048; 80053; 80202; 81001; 82550; 82803; 83605; 83735; 83880; 84100; 84145; 84439; 84443; 84478; 84484; 85025; 85610; 85730; 87040; 87070; 87077; 87086; 87088; 87186; 87205; 87631; 92526; 92610; 93005; 93306; 94002; 94003; 94640; 94660; 94668; 94762; 97110; 97116; 97162; 97163; 97166; 97530; 97535; 97802; 97803; 99252; 99285; J2185; J7030; J7040; J7050; P9047; Q9967; A4216; C1751; G0463; J1940; J2405

== ENCOUNTER → 2024-01-09 | Outpatient (CLI) | payer MEDICARE, SELFPAY | END | disposition home or self-care (01) | LOC: LABSPEC 16:15 | PROVIDERS: PCP Family Medicine; Referring Provider Physician Assistant; Visit Provider Physician Assistant | DX: N39.0 Urinary tract infection, site not specified (principal) | CPT/HCPCS: 87077; 87086; 87088; 87186 ==

== ENCOUNTER → 2024-01-23 | Outpatient (CLI) | payer MEDICARE, SELFPAY ==
[2024-01-23 08:42] LABS: Bacteria 0 SEEN /hpf (None Seen); Mucous, Urine 0 SEEN /hpf (<or=2+); Red Blood Cells-Urine 0 SEEN /hpf (0-5)
[2024-01-23 08:57] LABS: Color, Urine Yellow (Yellow); Glucose, Dipstick 50 mg/dl (Normal); Ketone-Dipstick Negative (Negative); Leukocyte Esterase-Dipstick 25 /ul (Negative); Nitrite-Dipstick Negative (Negative); Occult Blood-Urine Negative /ul (Negative); Protein-Dipstick Negative (Negative); Specific Gravity, Urine 1.015 (1.002-1.030); Urine Bilirubin Dipstick Negative (Negative); Urine Clarity Sl. Cloudy (Clear); Urine Urobilinogen Normal (Normal)
[2024-01-23 09:05] LABS: Squamous Epithelial Cells - UA 0-5 SEEN /hpf (5-10); White Blood Cells 0-5 SEEN /hpf (0-5)
== END | disposition home or self-care (01) ==
LOC: LABSPEC 08:37
PROVIDERS: PCP Family Medicine; Referring Provider Physician Assistant; Visit Provider Physician Assistant
DX: R30.0 Dysuria (principal)
CPT/HCPCS: 81001; 87077; 87086; 87088; 87186

== ENCOUNTER → 2024-05-12 | Outpatient (CLI) | payer MEDICARE, SELFPAY | END | disposition home or self-care (01) | PROVIDERS: PCP Family Medicine; Referring Provider Family Medicine; Visit Provider Family Medicine | DX: R33.9 Retention of urine, unspecified (principal) | CPT/HCPCS: 87086; 87088; 87186 ==